=== PATIENT | male | born 1950 | race Caucasian/White ===

== ENCOUNTER 2017-06-30 17:01 | Inpatient (IN) | payer MEDICARE ==
--- NOTE | 2017-06-30 17:40 | RADIOLOGY REPORT (SQ) ---
EXAM DESCRIPTION: CHEST SINGLE VIEW COMPLETED DATE/TIME: 06/30/2017 5:26 pm REASON FOR STUDY: bed 21 db COMPARISON: 10/07/2011 EXAM PARAMETERS: NUMBER OF VIEWS: One view. TECHNIQUE: Single frontal radiographic view of the chest acquired. RADIATION DOSE: NA LIMITATIONS: None. FINDINGS: LUNGS AND PLEURA: Patchy consolidation in the left lower lobe. No significant effusion. No pneumothorax. Right lung is clear. MEDIASTINUM AND HILAR STRUCTURES: Stable. HEART AND VASCULAR STRUCTURES: Stable. BONES: No acute findings. HARDWARE: None in the chest. OTHER: No other significant finding. IMPRESSION: Patchy consolidation in the left lower lobe. TECHNICAL DOCUMENTATION: JOB ID: [id number]
[2017-06-30] MEDS ORDERED: LEVOFLOXACIN 750 MG TABLET PO ONE (17:47)
--- NOTE | 2017-06-30 17:48 | ER Document Report ---
ED General - General Chief Complaint: Painful Cough Stated Complaint: COUGHING UP BLOOD Time Seen by Provider: 06/30/17 17:20 Mode of Arrival: Ambulatory Information source: Patient Notes: 67-year-old male history of COPD A. fib on metoprolol and warfarin presents with complaints of productive cough that has turned to bloody over the past few days. Patient denies any fevers admits to sweats. Patient admits shortness of breath weakness - HPI Onset: Last week Onset/Duration: Persistent Quality of pain: No pain Severity: Moderate Pain Level: Denies Associated symptoms: Sweating, Weakness Exacerbated by: Coughing, Deep breathing Relieved by: Denies Similar symptoms previously: Yes Recently seen / treated by doctor: No - Related Data Allergies/Adverse Reactions: No Known Allergies Allergy (Unverified 10/07/11 20:08) Home Medications: Current Home Medications Bupropion HCl [Wellbutrin Xl 300mg 24hr Tablet] 300 mg PO DAILY 06/30/17 [ History] Hydromorphone HCl [Dilaudid 2 mg Tablet] 4 mg PO Q6HP PRN 06/30/17 [History] Losartan Potassium [Cozaar 25 mg Tablet] 25 mg PO DAILY 06/30/17 [History] Metoprolol Succinate 100 mg PO BID 06/30/17 [History] Oxycodone HCl [Oxycontin] 60 mg PO Q8 06/30/17 [History] Pantoprazole Sodium [Protonix] 40 mg PO DAILY 06/30/17 [History] Warfarin Sodium [Coumadin 5 mg Tablet] 5 mg PO QHS 06/30/17 [History] Past Medical History - Social History Smoking Status: Current Every Day Smoker Cigarette use (# per day): Yes Chew tobacco use (# tins/day): No Smoking Education Provided: No Family History: Reviewed & Not Pertinent Pulmonary Medical History: Reports: Hx COPD Neurological Medical History: Denies: Hx Seizures Endocrine Medical History: Reports: Hx Hypothyroidism Musculoskeltal Medical History: Reports Hx Arthritis - DDD Past Surgical History: Reports: Hx Gastric Bypass Surgery - 1993, Hx Orthopedic Surgery - Herniated Disc Repair, Bilateral Knee Replacement - Immunizations Hx Diphtheria, Pertussis, Tetanus Vaccination: Yes Hx Pneumococcal Vaccination: 07/20/09 Review of Systems - Review of Systems Notes: REVIEW OF SYSTEMS: CONSTITUTIONAL : Admits to sweats EENT: Denies eye, ear, throat, or mouth pain or symptoms. Denies nasal or sinus congestion or discharge. Denies throat, tongue, or mouth swelling or difficulty swallowing. CARDIOVASCULAR: Denies chest pain. Denies palpitations or racing or irregular heart beat. Denies ankle edema. RESPIRATORY: Admits to shortness breath difficulty breathing GASTROINTESTINAL: Denies abdominal pain or distention. Denies nausea, vomiting , or diarrhea. Denies blood in vomitus, stools, or per rectum. Denies black, tarry stools. Denies constipation. GENITOURINARY: Denies difficulty urinating, painful urination, burning, frequency, blood in urine, or discharge. MUSCULOSKELETAL: Denies back or neck pain or stiffness. Denies joint pain or swelling. SKIN: Denies rash, lesions or sores. HEMATOLOGIC : Denies easy bruising or bleeding. LYMPHATIC: Denies swollen, enlarged glands. NEUROLOGICAL: Denies confusion or altered mental status. Denies passing out or loss of consciousness. Denies dizziness or lightheadedness. Denies headache. Denies weakness or paralysis or loss of use of either side. Denies problems with gait or speech. Denies sensory loss, numbness, or tingling. Denies seizures. PSYCHIATRIC: Denies anxiety or stress. Denies depression, suicidal ideation, or homicidal ideation. ALL OTHER SYSTEMS REVIEWED AND NEGATIVE. Dictation was performed using [employer] voice recognition software PHYSICAL EXAMINATION: GENERAL: Ill-appearing male HEAD: Atraumatic, normocephalic. EYES: Pupils equal round and reactive to light, extraocular movements intact, sclera anicteric, conjunctiva are normal. ENT: Nares patent, oropharynx clear without exudates. Moist mucous membranes. NECK: Normal range of motion, supple without lymphadenopathy LUNGS: Coarse rhonchi at the bases HEART: A. fib RVR ABDOMEN: Soft, nontender, nondistended abdomen. No guarding, no rebound. No masses appreciated. Musculoskeletal: Normal range of motion, no pitting or edema. No cyanosis. NEUROLOGICAL: Cranial nerves grossly intact. Normal speech, normal gait. Normal sensory, motor exams PSYCH: Normal mood, normal affect. SKIN: Sweaty Physical Exam - Vital signs Vitals: Resp 22 H 06/30/17 17:14 Course - Re-evaluation Re-evalutation: 06/30/17 20:22 Patient is noted to have pneumonia, he was in A. fib RVR and was given Cardizem which did drop his blood pressure, he was given IV fluids for this. His pressures did gradually improve. Patient will be given Levaquin and vancomycin. He is noted to have a bandemia consistent with sepsis patient otherwise is quite ill family has been made aware of this 06/30/17 21:29 Patient was given IV fluids pressure did improve - Vital Signs Vital signs: Temp Pulse Resp BP Pulse Ox 15 102/75 92 06/30/17 20:40 06/30/17 20:40 06/30/17 20:40 - Laboratory Result Diagrams: 06/30/17 18:03 06/30/17 18:03 Laboratory results interpreted by me: 06/30/17 06/30/17 06/30/17 18:03 18:03 18:03 WBC 21.4 H RBC 5.94 H Hgb 17.7 H Hct 52.6 H RDW 14.1 H Band Neutrophils % 23 H Lymphocytes % (Manual) 2 L Monocytes % (Manual) 2 L Abs Neuts (Manual) 20.5 H Abs Lymphs (Manual) 0.4 L Potassium 5.8 H BUN 25 H Creatinine 1.38 H Est GFR (Non-Af Amer) 51 L Glucose 139 H Lactic Acid 2.5 H Creatine Kinase 34 L - Diagnostic Test Radiology reviewed: Image reviewed, Reports reviewed - EKG Interpretation by Me EKG shows normal: Sinus rhythm, [place], Intervals, QRS Complexes Rate: Tachycardia Rhythm: A.Fib Critical Care Note - Critical Care Note Total time excluding time spent on procedures (mins): 45 Comments: 45 minutes of critical care time spent in direct contact evaluating and reevaluating the patient, treating symptoms, reviewing labs and studies and speaking with family and consultants excluding any procedures Discharge - Discharge Clinical Impression: Pneumonia Qualifiers: Pneumonia type: due to unspecified organism Laterality: right Lung location: lower lobe of lung Qualified Code(s): J18.1 - Lobar pneumonia, unspecified organism Sepsis Qualifiers: Sepsis type: sepsis due to unspecified organism Qualified Code(s): A41.9 - Sepsis, unspecified organism Condition: Critical Disposition: ADMITTED INPATIENT Admitting Provider: Hospitalist Unit Admitted: ICU
[2017-06-30] MEDS ORDERED: NORMAL SALINE 1000 ML 1,000 ML IV PRN (17:56)
[2017-06-30] MEDS ORDERED: LEVOFLOXACIN 750 MG/D5W RTU 750 MG/150 ML RTUPB IV ONE (17:56)
[2017-06-30] MEDS ORDERED: DILTIAZEM HCL/D5W 125 MG/125 ML RTUINJ IV PRN (17:57)
[2017-06-30] MEDS ORDERED: DILTIAZEM HCL INJ 25 MG/5 ML VIAL IV ONE (17:57)
[2017-06-30 18:41] LABS: VENOUS BLOOD BASE EXCESS -1.1 mmol/L; VENOUS BLOOD HCO3 24.2 mmol/L (20-32); VENOUS BLOOD PCO2 42.4 mmHg (35-63); VENOUS BLOOD PH 7.37 (7.30-7.42)
[2017-06-30 18:46] LABS: HEMATOCRIT 52.6 % (37.9-51.0); HEMOGLOBIN 17.7 g/dL (13.5-17.0); HGB HCT DIFFERENCE 0.5; MEAN CORPUSCULAR HEMOGLOBIN 29.7 pg (27.0-33.4); MEAN CORPUSCULAR HGB CONC 33.6 g/dL (32.0-36.0); MEAN CORPUSCULAR VOLUME 88 fl (80-97); RED BLOOD COUNT 5.94 10^6/uL (4.35-5.55); RED CELL DISTRIBUTION WIDTH 14.1 % (11.5-14.0); WHITE BLOOD COUNT 21.4 10^3/uL (4.0-10.5)
[2017-06-30 18:51] LABS: ALANINE AMINOTRANSFERASE 32 U/L (21-72); ALBUMIN 4.2 g/dL (3.5-5.0); ALKALINE PHOSPHATASE 83 U/L (38-126); ANION GAP 14 (5-19); ASPARTATE AMINO TRANSFERASE 18 U/L (17-59); BILIRUBIN,DIRECT 0.4 mg/dL (0.0-0.4); BILIRUBIN,TOTAL 1.2 mg/dL (0.2-1.3); BLOOD UREA NITROGEN 25 mg/dL (7-20); CALCIUM 9.7 mg/dL (8.4-10.2); CARBON DIOXIDE 26 mmol/L (22-30); CHLORIDE 98 mmol/L (98-107); CREATINE KINASE 34 U/L (55-170); CREATININE RESULT 1.38 mg/dL (0.52-1.25); GLUCOSE 139 mg/dL (75-110); POTASSIUM 5.8 mmol/L (3.6-5.0); SODIUM 137.9 mmol/L (137-145)
[2017-06-30 19:17] LABS: BASOPHILS % (MANUAL) 0 % (0-2); EOSINOPHILS % (MANUAL) 0 % (0-6); LYMPHOCYTES % (MANUAL) 2 % (13-45); TOTAL CELLS COUNTED 100
[2017-06-30 19:19] LABS: TOXIC GRANULATION 1+; TROPONIN I < 0.012 ng/mL
[2017-06-30 19:20] LABS: ANISOCYTOSIS SLIGHT; BAND NEUTROPHILS % (MANUAL) 23 % (3-5); TOXIC VACUOLATION PRESENT
--- NOTE | 2017-06-30 19:51 | EKG REPORT ---
SEVERITY:- ABNORMAL ECG - ATRIAL FIBRILLATION, V-RATE 80-133 LAD, CONSIDER LAFB OR INFERIOR INFARCT BORDERLINE T ABNORMALITIES, LATERAL LEADS BORDERLINE PROLONGED QT INTERVAL : Confirmed by: Pablo Fernando MD 30-Jun-2017 19:50:15
[2017-06-30] MEDS ORDERED: VANCOMYCIN HCL INJ 1000 MG VIAL IV ONE (20:15)
[2017-06-30] MEDS ORDERED: ACETAMINOPHEN 325 MG TABLET PO PRN (20:19)
[2017-06-30] MEDS ORDERED: NORMAL SALINE 1000 ML 1,000 ML IV ONE (20:21)
[2017-06-30] MEDS ORDERED: DEXTROSE 5%-WATER 250 ML with NOREPINEPHRINE BITARTRATE 4 MG IV PRN ×2 (20:22)
[2017-06-30] MEDS ORDERED: VANCOMYCIN HCL 0 MG in DEXTROSE 5%-WATER 250 ML IV NR (20:30)
[2017-06-30] MEDS ORDERED: HYDROCORTISONE SOD SUCCINATE INJ/PF 100 MG/2 ML SDV IV ONE (21:00)
[2017-06-30] MEDS ORDERED: LACTULOSE SYRUP 20 GM/30 ML UDCUP PO ONE (21:30)
--- NOTE | 2017-06-30 21:50 | RADIOLOGY REPORT (SQ) ---
EXAM DESCRIPTION: ABDOMEN 2 VIEWS COMPLETED DATE/TIME: 06/30/2017 9:07 pm REASON FOR STUDY: vomiting COMPARISON: None. NUMBER OF VIEWS: Two views. TECHNIQUE: Supine and erect/decubitus radiographic images of the abdomen acquired. LIMITATIONS: Patient body habitus. FINDINGS: FREE AIR: None. No abnormal gas collections. LUNG BASES: Left basilar airspace disease. BOWEL GAS PATTERN: Nonobstructive pattern. No dilated small bowel loops or air fluid levels identifie d. BONES: No acute fracture. No worrisome bone lesions. OTHER: No other significant finding. IMPRESSION: Nonobstructive pattern.Left basilar airspace disease. TECHNICAL DOCUMENTATION: JOB ID: [id number] [employer]- All Rights Reserved
[2017-06-30] MEDS ORDERED: INFLUENZA ADLT QUAD (36MOS+) 2017-18 VAC 0.5 ML SYR IM PRN (22:14)
[2017-06-30] MEDS: VANCOMYCIN HCL 1,250 MG in DEXTROSE 5%-WATER 250 ML IV SCH (23:06)
[2017-06-30] MEDS: HEPARIN SOD (PORCINE) 5,000 UNIT/ML 1 ML SYRINGE SUBCUT SCH (23:06)
[2017-06-30] MEDS: NORMAL SALINE 1000 ML 1,000 ML IV SCH (23:20)
[2017-06-30] MEDS: METOPROLOL TARTRATE PF/INJ 5 MG/5 ML SDV IV PRN (23:31)
[2017-07-01] MEDS: HYDROMORPHONE HCL 2 MG TABLET PO PRN ×2 (00:04→08:25)
[2017-07-01 01:05] LABS: CREATINE KINASE MB 0.92 ng/mL (<4.55)
[2017-07-01 01:08] LABS: TROPONIN I < 0.012 ng/mL
[2017-07-01] MEDS ORDERED: DEXTROSE 40% GEL 15 GM TUBE PO PRN ×2 (01:19)
[2017-07-01] MEDS ORDERED: DEXTROSE 50%-WATER 25 GM/50 ML DISP.SYRIN IV PRN ×2 (01:19)
[2017-07-01] MEDS: NORMAL SALINE 1000 ML 1,000 ML IV PRN ×2 (01:33→02:35)
[2017-07-01 01:37] LABS: PROTHROMBIN TIME 22.1 SEC (11.4-15.4)
[2017-07-01 02:21] LABS: APPEARANCE,URINE SLIGHTLY-CLOUDY; BILIRUBIN,URINE NEGATIVE (NEGATIVE); GLUCOSE, URINE NEGATIVE (NEGATIVE); KETONES,URINE NEGATIVE (NEGATIVE); LEUKOCYTE ESTERASE,URINE NEGATIVE (NEGATIVE); NITRITE,URINE NEGATIVE (NEGATIVE); PROTEIN,URINE NEGATIVE (NEGATIVE); URINE SPECIFIC GRAVITY 1.021
[2017-07-01] MEDS: IPRATROPIUM/ALBUTEROL 0.5-2.5 MG/3 ML AMPUL NEB SCH ×4 (02:35→20:22)
[2017-07-01] MEDS: NORMAL SALINE 1000 ML 1,000 ML IV SCH ×2 (02:48→07:03)
[2017-07-01] MEDS: OXYCODONE HCL SR 10 MG TABLET PO SCH ×3 (05:35→21:32)
[2017-07-01] MEDS: HEPARIN SOD (PORCINE) 5,000 UNIT/ML 1 ML SYRINGE SUBCUT SCH ×3 (05:36→22:00)
--- NOTE | 2017-07-01 05:45 | PDOC H&P ---
History of Present Illness Admission Date/PCP: 06/30/17 20:19 BRAN CERNA PA-C Patient complains of: Hemoptysis History of Present Illness: AMELIA BOB is a 67 year old male with a past medical history of COPD, chronic bronchitis, atrial fibrillation, morbid obesity, opiate dependent chronic back pain, gastric bypass and chronic constipation. Patient been in his usual state of health until approximately 6 hours prior to presentation having developed a nonproductive cough and a single episode of hemoptysis. In the emergency room is found to have A. fib with RVR, hypotension, bandemia and a left-sided infiltrate suggestive of pneumonia. He started on empiric antibiotics and referred to the hospitalist for admission. Patient denies recurrent pneumonia, recent antibiotics or infectious contacts. He believes his vaccinations for influenza and pneumonia are up-to-date. Past Medical History Cardiac Medical History: Reports: Atrial Fibrillation Pulmonary Medical History: Reports: Chronic Obstructive Pulmonary Disease (COPD) Neurological Medical History: Denies: Seizures Endocrine Medical History: Reports: Hypothyroidism Musculoskeltal Medical History: Reports: Arthritis - DDD Past Surgical History Past Surgical History: Reports: Gastric Bypass Surgery - 1993, Orthopedic Surgery - Herniated Disc Repair, Bilateral Knee Replacement Social History Information Source: Patient, [facility] Records Smoking Status: Former Smoker Frequency of Alcohol Use: None Hx Recreational Drug Use: No Hx Prescription Drug Abuse: No - Advance Directive Resuscitation Status: Full Code Family History Family History: COPD Parental Family History Reviewed: Yes Children Family History Reviewed: Yes Sibling(s) Family History Reviewed.: Yes Medication/Allergy Home Medications: Bupropion HCl [Wellbutrin Xl 300mg 24hr Tablet] 300 mg PO DAILY 06/30/17 Hydromorphone HCl [Dilaudid 2 mg Tablet] 4 mg PO Q6HP PRN 06/30/17 Losartan Potassium [Cozaar 25 mg Tablet] 25 mg PO DAILY 06/30/17 Metoprolol Succinate 100 mg PO BID 06/30/17 Oxycodone HCl [Oxycontin] 60 mg PO Q8 06/30/17 Pantoprazole Sodium [Protonix] 40 mg PO DAILY 06/30/17 Warfarin Sodium [Coumadin 5 mg Tablet] 5 mg PO QHS 06/30/17 Allergies/Adverse Reactions: No Known Allergies Allergy (Unverified 10/07/11 20:08) Review of Systems Constitutional: PRESENT: fatigue Eyes: ABSENT: visual disturbances Ears: ABSENT: hearing changes Cardiovascular: ABSENT: chest pain, dyspnea on exertion, edema, orthropnea, palpitations Respiratory: ABSENT: cough, hemoptysis Gastrointestinal: PRESENT: bloating, constipation. ABSENT: abdominal pain, diarrhea, hematemesis, hematochezia, nausea, vomiting Genitourinary: ABSENT: dysuria, hematuria Musculoskeletal: ABSENT: joint swelling Integumentary: ABSENT: rash, wounds Neurological: ABSENT: abnormal gait, abnormal speech, confusion, dizziness, focal weakness, syncope Psychiatric: ABSENT: anxiety, depression, homidical ideation, suicidal ideation Endocrine: ABSENT: cold intolerance, heat intolerance, polydipsia, polyuria Hematologic/Lymphatic: ABSENT: easy bleeding, easy bruising Physical Exam Vital Signs: Temp Pulse Resp BP Pulse Ox 97.5 F 120 H 16 140/98 H 95 07/01/17 04:00 07/01/17 04:00 07/01/17 04:00 07/01/17 04:00 07/01/17 04:00 Intake & Output 06/29/17 06/30/17 07/01/17 11:59 11:59 11:59 Intake Total 4400 Output Total 860 Balance 3540 Weight 146.1 kg General appearance: PRESENT: cooperative, mild distress. ABSENT: hard of hearing Head exam: PRESENT: atraumatic, normocephalic Eye exam: PRESENT: conjunctiva pink, EOMI, PERRLA. ABSENT: scleral icterus Ear exam: PRESENT: normal external ear exam Mouth exam: PRESENT: dry mucosa Neck exam: ABSENT: carotid bruit, JVD, lymphadenopathy, thyromegaly Respiratory exam: PRESENT: accessory muscle use, clear to auscultation almaz, prolonged expiratory phas, rhonchi, tachypnea. ABSENT: rales, wheezes Cardiovascular exam: PRESENT: irregular rhythm. ABSENT: diastolic murmur, rubs , systolic murmur Pulses: PRESENT: normal dorsalis pedis pul Vascular exam: PRESENT: normal capillary refill GI/Abdominal exam: PRESENT: distended, hypoactive bowel sounds, soft. ABSENT: tenderness Rectal exam: PRESENT: deferred Extremities exam: PRESENT: full ROM. ABSENT: calf tenderness, clubbing, pedal edema Neurological exam: PRESENT: alert, awake, oriented to person, oriented to place , oriented to time, oriented to situation, CN II-XII grossly intact. ABSENT: motor sensory deficit Psychiatric exam: PRESENT: appropriate affect, normal mood. ABSENT: homicidal ideation, suicidal ideation Skin exam: PRESENT: dry, intact, warm. ABSENT: cyanosis, rash Results Laboratory Results: 06/30/17 07/01/17 22:19 01:50 Lactic Acid 2.5 H Urine Color LÓPEZ Urine Appearance SLIGHTLY-CLOUDY Urine pH 5.0 Ur Specific [place] 1.021 Urine Protein NEGATIVE Urine Glucose (UA) NEGATIVE Urine Ketones NEGATIVE Urine Blood MODERATE H Urine Nitrite NEGATIVE Ur Leukocyte Esterase NEGATIVE Urine WBC (Auto) 10 Urine RBC (Auto) 5 07/01/17 07/01/17 00:27 00:27 Creatine Kinase 46 L CK-MB (CK-2) 0.92 Troponin I < 0.012 Impressions: Abdomen X-Ray 06/30/17 00:00 IMPRESSION: Nonobstructive pattern.Left basilar airspace disease. Chest X-Ray 06/30/17 17:10 IMPRESSION: Patchy consolidation in the left lower lobe. Assessment & Plan - Diagnosis (1) Sepsis Qualifiers: Sepsis type: sepsis due to unspecified organism Qualified Code(s): A41.9 - Sepsis, unspecified organism Is this a current diagnosis for this admission?: Yes Plan: Sepsis with bandemia likely secondary to pneumonia he is placed on vancomycin and Levaquin empirically, IV fluid challenge and pressors as needed. (2) Hypotension Is this a current diagnosis for this admission?: Yes Plan: Please see #1, evaluate cortisol level (3) Pneumonia Qualifiers: Pneumonia type: due to unspecified organism Laterality: left Lung location: lower lobe of lung Qualified Code(s): J18.1 - Lobar pneumonia, unspecified organism Is this a current diagnosis for this admission?: Yes Plan: Empiric antibiotics, evaluate influenza, follow-up CBC and blood culture (4) Hyperkalemia Is this a current diagnosis for this admission?: Yes Plan: Likely secondary to constipation, no peak T waves, lactulose and reevaluation of chemistry - Time Time Spent: 50 to 70 Minutes - Inpatient Certification Medical Necessity: Need Close Monitoring Due to Risk of Patient Decompensation
[2017-07-01 06:17] LABS: HGB HCT DIFFERENCE 0.7; MEAN CORPUSCULAR HEMOGLOBIN 29.8 pg (27.0-33.4); MEAN CORPUSCULAR HGB CONC 33.9 g/dL (32.0-36.0); MEAN CORPUSCULAR VOLUME 88 fl (80-97); RED BLOOD COUNT 5.01 10^6/uL (4.35-5.55); RED CELL DISTRIBUTION WIDTH 14.3 % (11.5-14.0); WHITE BLOOD COUNT 15.4 10^3/uL (4.0-10.5)
[2017-07-01 06:18] LABS: HEMOGLOBIN 14.9 g/dL (13.5-17.0)
[2017-07-01 06:30] LABS: ALANINE AMINOTRANSFERASE 25 U/L (21-72); ALBUMIN 3.2 g/dL (3.5-5.0); ALKALINE PHOSPHATASE 67 U/L (38-126); ANION GAP 13 (5-19); ASPARTATE AMINO TRANSFERASE 15 U/L (17-59); BILIRUBIN,DIRECT 0.4 mg/dL (0.0-0.4); BILIRUBIN,TOTAL 0.9 mg/dL (0.2-1.3); BLOOD UREA NITROGEN 25 mg/dL (7-20); CALCIUM 8.2 mg/dL (8.4-10.2); CARBON DIOXIDE 19 mmol/L (22-30); CHLORIDE 109 mmol/L (98-107); CREATININE RESULT 1.12 mg/dL (0.52-1.25); GLUCOSE 129 mg/dL (75-110); TOTAL PROTEIN 5.8 g/dL (6.3-8.2)
[2017-07-01 06:38] LABS: CREATINE KINASE MB 1.69 ng/mL (<4.55)
[2017-07-01 06:39] LABS: BAND NEUTROPHILS % (MANUAL) 9 % (3-5); BASOPHILS % (MANUAL) 0 % (0-2); EOSINOPHILS % (MANUAL) 0 % (0-6); LYMPHOCYTES % (MANUAL) 7 % (13-45); TOTAL CELLS COUNTED 100
[2017-07-01 06:40] LABS: ANISOCYTOSIS SLIGHT; STOMATOCYTES SLIGHT; TOXIC GRANULATION SLIGHT; TOXIC VACUOLATION PRESENT
[2017-07-01 06:41] LABS: PLATELET CLUMPS PRESENT
[2017-07-01 06:42] LABS: POTASSIUM 4.5 mmol/L (3.6-5.0); TROPONIN I 0.012 ng/mL
[2017-07-01] MEDS ORDERED: LORAZEPAM 1 MG TABLET ONE (08:54)
--- NOTE | 2017-07-01 09:52 | RADIOLOGY REPORT (SQ) ---
EXAM DESCRIPTION: CHEST SINGLE VIEW COMPLETED DATE/TIME: 07/01/2017 9:43 am REASON FOR STUDY: SOB COMPARISON: 06/30/2017 EXAM PARAMETERS: NUMBER OF VIEWS: One view. TECHNIQUE: Single frontal radiographic view of the chest acquired. RADIATION DOSE: NA LIMITATIONS: None. FINDINGS: LUNGS AND PLEURA: Persistent left basilar opacity and increasing right basilar opacity. MEDIASTINUM AND HILAR STRUCTURES: No masses. Contour normal. HEART AND VASCULAR STRUCTURES: Heart is enlarged. Interval development of vascular congestion and [place] B-lines. BONES: No acute findings. HARDWARE: None in the chest. OTHER: No other significant finding. IMPRESSION: Persistent left lower lobe pneumonia with new parenchymal opacity at the right base. Congestive failure with interstitial pulmonary edema. TECHNICAL DOCUMENTATION: JOB ID: [id number]
[2017-07-01 09:56] LABS: ARTERIAL BLOOD BASE EXCESS -2.9 mmol/L; ARTERIAL BLOOD O2 SATURATION 94.5 % (94-98)
[2017-07-01] MEDS ORDERED: FUROSEMIDE INJ/PF 40 MG/4 ML SDV ONE (10:05)
[2017-07-01] MEDS: LANSOPRAZOLE 30 MG TAB.RAP.DR PO SCH (10:11)
[2017-07-01] MEDS: VANCOMYCIN HCL 1,250 MG in DEXTROSE 5%-WATER 250 ML IV SCH ×2 (10:12→21:33)
[2017-07-01] MEDS ORDERED: FUROSEMIDE INJ/PF 40 MG/4 ML SDV IV ONE (10:15)
--- NOTE | 2017-07-01 12:04 | PDOC PROGRESS REPORT ---
Subjective Progress Note for:: 07/01/17 Subjective:: Patient complains of a productive cough and shortness of breath. Physical Exam Vital Signs: Temp Pulse Resp BP Pulse Ox 97.9 F 109 H 19 148/86 H 94 07/01/17 06:00 07/01/17 10:01 07/01/17 10:30 07/01/17 10:30 07/01/17 10:30 Intake & Output 06/30/17 07/01/17 07/02/17 06:59 06:59 06:59 Intake Total 4400 Output Total 885 300 Balance 3515 -300 Weight 150.4 kg 150.4 kg General appearance: PRESENT: mild distress Eye exam: PRESENT: conjunctiva pink. ABSENT: scleral icterus Mouth exam: PRESENT: moist, tongue midline Neck exam: ABSENT: JVD Respiratory exam: PRESENT: rales - Bibasilar Rales.. ABSENT: rhonchi, wheezes Cardiovascular exam: PRESENT: RRR. ABSENT: diastolic murmur, rubs, systolic murmur GI/Abdominal exam: PRESENT: normal bowel sounds, soft. ABSENT: distended, guarding, mass, organolmegaly, rebound, tenderness Extremities exam: ABSENT: calf tenderness, clubbing, pedal edema Neurological exam: PRESENT: alert, awake, oriented to person, oriented to place , oriented to time, oriented to situation, CN II-XII grossly intact. ABSENT: motor sensory deficit Psychiatric exam: PRESENT: anxious Skin exam: PRESENT: dry, intact, warm. ABSENT: cyanosis, rash Results Laboratory Results: 07/01/17 05:57 07/01/17 05:57 06/30/17 07/01/17 07/01/17 22:19 01:50 05:57 WBC 15.4 H RBC 5.01 Hgb 14.9 D Hct 44.0 MCV 88 MCH 29.8 MCHC 33.9 RDW 14.3 H Plt Count 150 Seg Neutrophils % Not Reportable Lymphocytes % Not Reportable Monocytes % Not Reportable Eosinophils % Not Reportable Basophils % Not Reportable Absolute Neutrophils Not Reportable Absolute Lymphocytes Not Reportable Absolute Monocytes Not Reportable Absolute Eosinophils Not Reportable Absolute Basophils Not Reportable Carbonic Acid HCO3/H2CO3 Ratio ABG pH ABG pCO2 ABG pO2 ABG HCO3 ABG O2 Saturation ABG Base Excess FiO2 Sodium Potassium Chloride Carbon Dioxide Anion Gap BUN Creatinine Est GFR ( Amer) Est GFR (Non-Af Amer) Glucose Lactic Acid 2.5 H Calcium Magnesium Total Bilirubin AST ALT Alkaline Phosphatase Total Protein Albumin Urine Color LÓPEZ Urine Appearance SLIGHTLY-CLOUDY Urine pH 5.0 Ur Specific [place] 1.021 Urine Protein NEGATIVE Urine Glucose (UA) NEGATIVE Urine Ketones NEGATIVE Urine Blood MODERATE H Urine Nitrite NEGATIVE Ur Leukocyte Esterase NEGATIVE Urine WBC (Auto) 10 Urine RBC (Auto) 5 07/01/17 07/01/17 07/01/17 05:57 05:57 09:46 WBC RBC Hgb Hct MCV MCH MCHC RDW Plt Count Seg Neutrophils % Lymphocytes % Monocytes % Eosinophils % Basophils % Absolute Neutrophils Absolute Lymphocytes Absolute Monocytes Absolute Eosinophils Absolute Basophils Carbonic Acid 1.12 HCO3/H2CO3 Ratio 19:1 ABG pH 7.38 ABG pCO2 37.2 ABG pO2 72.7 L ABG HCO3 21.7 ABG O2 Saturation 94.5 ABG Base Excess -2.9 FiO2 4.5L Sodium 141.0 Potassium 4.5 D Chloride 109 H Carbon Dioxide 19 L Anion Gap 13 BUN 25 H Creatinine 1.12 Est GFR ( Amer) > 60 Est GFR (Non-Af Amer) > 60 Glucose 129 H Lactic Acid Calcium 8.2 L Magnesium 1.7 Total Bilirubin 0.9 AST 15 L ALT 25 Alkaline Phosphatase 67 Total Protein 5.8 L Albumin 3.2 L Urine Color Urine Appearance Urine pH Ur Specific [place] Urine Protein Urine Glucose (UA) Urine Ketones Urine Blood Urine Nitrite Ur Leukocyte Esterase Urine WBC (Auto) Urine RBC (Auto) 07/01/17 07/01/17 07/01/17 00:27 00:27 05:57 Creatine Kinase 46 L 65 CK-MB (CK-2) 0.92 Troponin I < 0.012 NT-Pro-B Natriuret Pep 07/01/17 07/01/17 05:57 05:57 Creatine Kinase CK-MB (CK-2) 1.69 Troponin I 0.012 NT-Pro-B Natriuret Pep 2690 H Impressions: Abdomen X-Ray 06/30/17 00:00 IMPRESSION: Nonobstructive pattern.Left basilar airspace disease. Chest X-Ray 07/01/17 00:00 IMPRESSION: Persistent left lower lobe pneumonia with new parenchymal opacity at the right base. Congestive failure with interstitial pulmonary edema. Assessment & Plan - Diagnosis (1) Sepsis Qualifiers: Sepsis type: sepsis due to unspecified organism Qualified Code(s): A41.9 - Sepsis, unspecified organism Is this a current diagnosis for this admission?: Yes Plan: Patient has sepsis from pneumonia. Will continue with the Levaquin. The patient has been receiving IV fluids but appears to be developing some pulmonary edema and we will stop the IV fluids and give Lasix 1. (2) Pneumonia Qualifiers: Pneumonia type: due to unspecified organism Laterality: left Lung location: lower lobe of lung Qualified Code(s): J18.1 - Lobar pneumonia, unspecified organism Is this a current diagnosis for this admission?: Yes Plan: Continue with Levaquin. (3) Hypotension Is this a current diagnosis for this admission?: Yes Plan: Resolved with IV fluids. (4) Pulmonary edema Is this a current diagnosis for this admission?: Yes Plan: Secondary to IV fluids. Will give Lasix 1. (5) Atrial fibrillation Is this a current diagnosis for this admission?: Yes Plan: Patient is in a regular rhythm at the time of my exam. He is on Coumadin for anticoagulation. (6) COPD (chronic obstructive pulmonary disease) Is this a current diagnosis for this admission?: Yes Plan: Continue with nebulizers as needed. (7) Hypothyroidism Is this a current diagnosis for this admission?: Yes (8) Hyperkalemia Is this a current diagnosis for this admission?: Yes Plan: Resolved. - Time Time Spent with patient: 25-34 minutes - Inpatient Certification Medical Necessity: Need for IV Antibiotics
--- NOTE | 2017-07-01 12:58 | EKG REPORT ---
SEVERITY:- ABNORMAL ECG - ATRIAL FIBRILLATION, V-RATE 71-103 LEFT AXIS DEVIATION BORDERLINE T WAVE ABNORMALITIES : Confirmed by: Pablo Fernando MD 01-Jul-2017 12:57:25
[2017-07-01 13:03] LABS: PATH REVIEW PATHOLOGIST REVIEWED
[2017-07-01] MEDS ORDERED: DILTIAZEM HCL 30 MG TABLET PO ONE (15:45)
[2017-07-01 16:15] LABS: PROTHROMBIN TIME 21.6 SEC (11.4-15.4)
[2017-07-01 16:23] LABS: CREATINE KINASE MB 4.46 ng/mL (<4.55)
[2017-07-01 16:24] LABS: TROPONIN I < 0.012 ng/mL
[2017-07-01] MEDS: LEVOFLOXACIN 750 MG/D5W RTU 750 MG/150 ML RTUPB IV SCH (17:43)
[2017-07-01] MEDS: WARFARIN SODIUM 5 MG TABLET PO SCH (21:33)
[2017-07-01] MEDS ORDERED: (PENDING PHARMACY ID) (Warfarin Sodium 5 MG) PO SCH (22:00)
[2017-07-01] MEDS: DILTIAZEM HCL 30 MG TABLET PO SCH (23:11)
[2017-07-01] MEDS: METOPROLOL TARTRATE PF/INJ 5 MG/5 ML SDV IV PRN (23:12)
[2017-07-02] MEDS: IPRATROPIUM/ALBUTEROL 0.5-2.5 MG/3 ML AMPUL NEB SCH ×4 (01:57→20:19)
[2017-07-02] MEDS: HYDROMORPHONE HCL 2 MG TABLET PO PRN ×3 (02:16→20:39)
[2017-07-02 04:03] LABS: ABSOLUTE EOSINOPHILS # (AUTO) 0.1 10^3/uL (0.0-0.6); ABSOLUTE MONOCYTES (AUTO) 0.6 10^3/uL (0.1-1.4); ABSOLUTE NEUT (AUTO) 8.6 10^3/uL (1.7-8.2); BASOPHILS % (AUTO) 0.4 % (0-2); EOSINOPHILS % (AUTO) 0.7 % (0-6); HEMATOCRIT 43.1 % (37.9-51.0); HEMOGLOBIN 14.3 g/dL (13.5-17.0); HGB HCT DIFFERENCE -0.2; LYMPHOCYTES % (AUTO) 9.7 % (13-45); MEAN CORPUSCULAR HEMOGLOBIN 29.3 pg (27.0-33.4); MEAN CORPUSCULAR HGB CONC 33.1 g/dL (32.0-36.0); MEAN CORPUSCULAR VOLUME 89 fl (80-97); MONOCYTES % (AUTO) 5.7 % (3-13); RED BLOOD COUNT 4.86 10^6/uL (4.35-5.55); RED CELL DISTRIBUTION WIDTH 14.1 % (11.5-14.0); SEGMENTED NEUTROPHILS % (AUTO) 83.5 % (42-78); WHITE BLOOD COUNT 10.2 10^3/uL (4.0-10.5)
[2017-07-02 05:27] LABS: ALANINE AMINOTRANSFERASE 20 U/L (21-72); ALBUMIN 2.9 g/dL (3.5-5.0); ALKALINE PHOSPHATASE 47 U/L (38-126); ANION GAP 10 (5-19); ASPARTATE AMINO TRANSFERASE 26 U/L (17-59); BILIRUBIN,DIRECT 0.5 mg/dL (0.0-0.4); BILIRUBIN,TOTAL 0.8 mg/dL (0.2-1.3); BLOOD UREA NITROGEN 20 mg/dL (7-20); CALCIUM 8.8 mg/dL (8.4-10.2); CARBON DIOXIDE 22 mmol/L (22-30); CHLORIDE 109 mmol/L (98-107); CREATININE RESULT 0.97 mg/dL (0.52-1.25); GLUCOSE 102 mg/dL (75-110); POTASSIUM 4.4 mmol/L (3.6-5.0); SODIUM 140.5 mmol/L (137-145); TOTAL PROTEIN 5.4 g/dL (6.3-8.2)
[2017-07-02] MEDS: DILTIAZEM HCL 30 MG TABLET PO SCH ×4 (05:50→23:03)
[2017-07-02] MEDS: OXYCODONE HCL SR 10 MG TABLET PO SCH ×3 (05:50→21:53)
[2017-07-02] MEDS: HEPARIN SOD (PORCINE) 5,000 UNIT/ML 1 ML SYRINGE SUBCUT SCH ×3 (06:02→21:53)
[2017-07-02] MEDS: METOPROLOL TARTRATE PF/INJ 5 MG/5 ML SDV IV PRN ×2 (07:25→23:04)
[2017-07-02] MEDS: VANCOMYCIN HCL 1,250 MG in DEXTROSE 5%-WATER 250 ML IV SCH ×2 (09:37→21:53)
[2017-07-02] MEDS: LANSOPRAZOLE 30 MG TAB.RAP.DR PO SCH (09:37)
--- NOTE | 2017-07-02 10:11 | PDOC PROGRESS REPORT ---
Subjective Progress Note for:: 07/02/17 Subjective:: Reports he is feeling less short of breath today. Has had intermittent tachycardia. Physical Exam Vital Signs: Temp Pulse Resp BP Pulse Ox 97.8 F 122 H 18 138/73 H 96 07/02/17 08:00 07/02/17 08:19 07/02/17 08:00 07/02/17 08:00 07/02/17 08:00 Intake & Output 07/01/17 07/02/17 07/03/17 06:59 06:59 06:59 Intake Total 4400 5521 Output Total 885 4350 0 Balance 3515 1171 0 Weight 150.4 kg 147.6 kg General appearance: PRESENT: no acute distress Eye exam: PRESENT: conjunctiva pink. ABSENT: scleral icterus Mouth exam: PRESENT: moist, tongue midline Neck exam: ABSENT: JVD Respiratory exam: PRESENT: rhonchi - Coarse rhonchi bilaterally.. ABSENT: rales , wheezes Cardiovascular exam: PRESENT: irregular rhythm. ABSENT: diastolic murmur, rubs , systolic murmur GI/Abdominal exam: PRESENT: normal bowel sounds, soft. ABSENT: distended, guarding, mass, organolmegaly, rebound, tenderness Extremities exam: ABSENT: calf tenderness, clubbing, pedal edema Neurological exam: PRESENT: alert, awake, oriented to person, oriented to place , oriented to time, oriented to situation, CN II-XII grossly intact. ABSENT: motor sensory deficit Psychiatric exam: PRESENT: appropriate affect Skin exam: PRESENT: dry, intact, warm. ABSENT: cyanosis, rash Results Laboratory Results: 07/02/17 03:55 07/02/17 04:58 07/02/17 07/02/17 07/02/17 03:55 03:55 04:58 WBC 10.2 RBC 4.86 Hgb 14.3 Hct 43.1 MCV 89 MCH 29.3 MCHC 33.1 RDW 14.1 H Plt Count 140 L Seg Neutrophils % 83.5 H Lymphocytes % 9.7 L Monocytes % 5.7 Eosinophils % 0.7 Basophils % 0.4 Absolute Neutrophils 8.6 H Absolute Lymphocytes 1.0 Absolute Monocytes 0.6 Absolute Eosinophils 0.1 Absolute Basophils 0.0 Sodium Cancelled 140.5 Potassium Cancelled 4.4 Chloride Cancelled 109 H Carbon Dioxide Cancelled 22 Anion Gap Cancelled 10 BUN Cancelled 20 Creatinine Cancelled 0.97 Est GFR ( Amer) Cancelled > 60 Est GFR (Non-Af Amer) Cancelled > 60 Glucose Cancelled 102 Calcium Cancelled 8.8 Total Bilirubin Cancelled 0.8 AST Cancelled 26 ALT Cancelled 20 L Alkaline Phosphatase Cancelled 47 Total Protein Cancelled 5.4 L Albumin Cancelled 2.9 L 07/01/17 07/01/17 07/01/17 00:27 00:27 05:57 Creatine Kinase 46 L 65 CK-MB (CK-2) 0.92 Troponin I < 0.012 NT-Pro-B Natriuret Pep 07/01/17 07/01/17 07/01/17 05:57 05:57 12:53 Creatine Kinase Cancelled CK-MB (CK-2) 1.69 Troponin I 0.012 NT-Pro-B Natriuret Pep 2690 H 07/01/17 07/01/17 07/01/17 12:53 15:47 15:47 Creatine Kinase 233 H CK-MB (CK-2) Cancelled 4.46 Troponin I Cancelled < 0.012 NT-Pro-B Natriuret Pep Impressions: Abdomen X-Ray 06/30/17 00:00 IMPRESSION: Nonobstructive pattern.Left basilar airspace disease. Chest X-Ray 07/01/17 00:00 IMPRESSION: Persistent left lower lobe pneumonia with new parenchymal opacity at the right base. Congestive failure with interstitial pulmonary edema. Assessment & Plan - Diagnosis (1) Sepsis Qualifiers: Sepsis type: sepsis due to unspecified organism Qualified Code(s): A41.9 - Sepsis, unspecified organism Is this a current diagnosis for this admission?: Yes Plan: Patient has sepsis from pneumonia. Will continue with the Levaquin. Patient clinically is much improved. Feel he is stable for transfer to [facility] [place]. (2) Pneumonia Qualifiers: Pneumonia type: due to unspecified organism Laterality: left Lung location: lower lobe of lung Qualified Code(s): J18.1 - Lobar pneumonia, unspecified organism Is this a current diagnosis for this admission?: Yes Plan: Continue with Levaquin. (3) Hypotension Is this a current diagnosis for this admission?: Yes Plan: Resolved with IV fluids. (4) Pulmonary edema Is this a current diagnosis for this admission?: Yes Plan: Secondary to IV fluids. Resolved with Lasix. (5) Atrial fibrillation Is this a current diagnosis for this admission?: Yes Plan: The patient has been in atrial fibrillation. His heart rate has fluctuated. He is on p.o. Cardizem and has received IV Lopressor. He is on Coumadin for anticoagulation. We will continue with heparin until he is therapeutic on Coumadin. (6) COPD (chronic obstructive pulmonary disease) Is this a current diagnosis for this admission?: Yes Plan: Continue with nebulizers as needed. (7) Hypothyroidism Is this a current diagnosis for this admission?: Yes (8) Hyperkalemia Is this a current diagnosis for this admission?: Yes Plan: Resolved. - Time Time Spent with patient: 25-34 minutes - Inpatient Certification Medical Necessity: Need for IV Antibiotics - Plan Summary Plan Summary: We will transfer to the floor.
[2017-07-02 11:52] LABS: PROTHROMBIN TIME 19.8 SEC (11.4-15.4)
[2017-07-02] MEDS: LEVOFLOXACIN 750 MG/D5W RTU 750 MG/150 ML RTUPB IV SCH (18:04)
[2017-07-02] MEDS: WARFARIN SODIUM 5 MG TABLET PO SCH (21:53)
[2017-07-02] MEDS: LORAZEPAM 1 MG TABLET PO PRN (23:04)
[2017-07-03] MEDS: IPRATROPIUM/ALBUTEROL 0.5-2.5 MG/3 ML AMPUL NEB SCH ×4 (01:43→20:51)
[2017-07-03 03:53] LABS: ABSOLUTE EOSINOPHILS # (AUTO) 0.1 10^3/uL (0.0-0.6); ABSOLUTE LYMPHOCYTES (AUTO) 1.2 10^3/uL (0.5-4.7); ABSOLUTE MONOCYTES (AUTO) 0.4 10^3/uL (0.1-1.4); ABSOLUTE NEUT (AUTO) 4.6 10^3/uL (1.7-8.2); BASOPHILS % (AUTO) 0.5 % (0-2); EOSINOPHILS % (AUTO) 1.8 % (0-6); HEMATOCRIT 40.3 % (37.9-51.0); HEMOGLOBIN 13.7 g/dL (13.5-17.0); HGB HCT DIFFERENCE 0.8; LYMPHOCYTES % (AUTO) 19.5 % (13-45); MEAN CORPUSCULAR HEMOGLOBIN 29.8 pg (27.0-33.4); MEAN CORPUSCULAR VOLUME 88 fl (80-97); RED CELL DISTRIBUTION WIDTH 14.2 % (11.5-14.0); SEGMENTED NEUTROPHILS % (AUTO) 71.2 % (42-78); WHITE BLOOD COUNT 6.4 10^3/uL (4.0-10.5)
[2017-07-03 04:18] LABS: PROTHROMBIN TIME 21.3 SEC (11.4-15.4)
[2017-07-03 04:34] LABS: ALANINE AMINOTRANSFERASE 26 U/L (21-72); ALKALINE PHOSPHATASE 51 U/L (38-126); ANION GAP 9 (5-19); ASPARTATE AMINO TRANSFERASE 18 U/L (17-59); BILIRUBIN,DIRECT 0.4 mg/dL (0.0-0.4); BILIRUBIN,TOTAL 0.7 mg/dL (0.2-1.3); BLOOD UREA NITROGEN 13 mg/dL (7-20); CALCIUM 8.7 mg/dL (8.4-10.2); CARBON DIOXIDE 24 mmol/L (22-30); CHLORIDE 107 mmol/L (98-107); CREATININE RESULT 0.87 mg/dL (0.52-1.25); GLUCOSE 100 mg/dL (75-110); POTASSIUM 3.9 mmol/L (3.6-5.0); SODIUM 140.3 mmol/L (137-145); TOTAL PROTEIN 5.3 g/dL (6.3-8.2)
[2017-07-03] MEDS: METOPROLOL TARTRATE PF/INJ 5 MG/5 ML SDV IV PRN (05:51)
[2017-07-03] MEDS: OXYCODONE HCL SR 10 MG TABLET PO SCH ×3 (05:52→21:57)
[2017-07-03] MEDS: DILTIAZEM HCL 30 MG TABLET PO SCH ×4 (05:53→23:19)
[2017-07-03] MEDS: HEPARIN SOD (PORCINE) 5,000 UNIT/ML 1 ML SYRINGE SUBCUT SCH ×3 (05:53→21:58)
[2017-07-03] MEDS ORDERED: (PENDING PHARMACY ID) (Metoprolol Succinate [Metoprolol Succinate] 100 MG) PO SCH (10:00)
[2017-07-03] MEDS: LANSOPRAZOLE 30 MG TAB.RAP.DR PO SCH (10:05)
[2017-07-03] MEDS: METOPROLOL SUCCINATE 50 MG TAB.SR.24H PO SCH ×2 (10:06→21:57)
[2017-07-03] MEDS: HYDROMORPHONE HCL 2 MG TABLET PO PRN ×2 (10:06→20:56)
[2017-07-03] MEDS: VANCOMYCIN HCL 1,250 MG in DEXTROSE 5%-WATER 250 ML IV SCH ×2 (10:07→21:56)
--- NOTE | 2017-07-03 11:06 | PDOC PROGRESS REPORT ---
Subjective Progress Note for:: 07/03/17 Subjective:: Denies any complaints. Physical Exam Vital Signs: Temp Pulse Resp BP Pulse Ox 98.8 F 118 H 20 126/92 H 96 07/03/17 10:00 07/03/17 10:00 07/03/17 10:00 07/03/17 10:00 07/03/17 10:00 Intake & Output 07/02/17 07/03/17 07/04/17 06:59 06:59 06:59 Intake Total 5521 1021 140 Output Total 4350 1500 Balance 1171 -479 140 Weight 147.6 kg 146.6 kg General appearance: PRESENT: no acute distress Eye exam: PRESENT: conjunctiva pink. ABSENT: scleral icterus Ear exam: PRESENT: normal external ear exam Mouth exam: PRESENT: moist, tongue midline Neck exam: ABSENT: JVD Respiratory exam: PRESENT: clear to auscultation almaz. ABSENT: rales, rhonchi, wheezes Cardiovascular exam: PRESENT: irregular rhythm. ABSENT: diastolic murmur, rubs , systolic murmur GI/Abdominal exam: PRESENT: normal bowel sounds, soft. ABSENT: distended, guarding, mass, organolmegaly, rebound, tenderness Extremities exam: ABSENT: calf tenderness, clubbing, pedal edema Neurological exam: PRESENT: alert, awake, oriented to person, oriented to place , oriented to time, oriented to situation, CN II-XII grossly intact. ABSENT: motor sensory deficit Psychiatric exam: PRESENT: appropriate affect Skin exam: PRESENT: dry, intact, warm. ABSENT: cyanosis, rash Results Laboratory Results: 07/03/17 03:41 07/03/17 03:41 07/03/17 07/03/17 03:41 03:41 WBC 6.4 RBC 4.60 Hgb 13.7 Hct 40.3 MCV 88 MCH 29.8 MCHC 34.0 RDW 14.2 H Plt Count 161 Seg Neutrophils % 71.2 Lymphocytes % 19.5 Monocytes % 7.0 Eosinophils % 1.8 Basophils % 0.5 Absolute Neutrophils 4.6 Absolute Lymphocytes 1.2 Absolute Monocytes 0.4 Absolute Eosinophils 0.1 Absolute Basophils 0.0 Sodium 140.3 Potassium 3.9 Chloride 107 Carbon Dioxide 24 Anion Gap 9 BUN 13 Creatinine 0.87 Est GFR ( Amer) > 60 Est GFR (Non-Af Amer) > 60 Glucose 100 Calcium 8.7 Total Bilirubin 0.7 AST 18 ALT 26 Alkaline Phosphatase 51 Total Protein 5.3 L Albumin 3.0 L 07/01/17 07/01/17 07/01/17 00:27 00:27 05:57 Creatine Kinase 46 L 65 CK-MB (CK-2) 0.92 Troponin I < 0.012 NT-Pro-B Natriuret Pep 07/01/17 07/01/17 07/01/17 05:57 05:57 12:53 Creatine Kinase Cancelled CK-MB (CK-2) 1.69 Troponin I 0.012 NT-Pro-B Natriuret Pep 2690 H 07/01/17 07/01/17 07/01/17 12:53 15:47 15:47 Creatine Kinase 233 H CK-MB (CK-2) Cancelled 4.46 Troponin I Cancelled < 0.012 NT-Pro-B Natriuret Pep Impressions: Abdomen X-Ray 06/30/17 00:00 IMPRESSION: Nonobstructive pattern.Left basilar airspace disease. Chest X-Ray 07/01/17 00:00 IMPRESSION: Persistent left lower lobe pneumonia with new parenchymal opacity at the right base. Congestive failure with interstitial pulmonary edema. Assessment & Plan - Diagnosis (1) Sepsis Qualifiers: Sepsis type: sepsis due to unspecified organism Qualified Code(s): A41.9 - Sepsis, unspecified organism Is this a current diagnosis for this admission?: Yes Plan: Patient has sepsis from pneumonia. Will continue with the Levaquin. Patient continues to improve. (2) Pneumonia Qualifiers: Pneumonia type: due to unspecified organism Laterality: left Lung location: lower lobe of lung Qualified Code(s): J18.1 - Lobar pneumonia, unspecified organism Is this a current diagnosis for this admission?: Yes Plan: Continue with Levaquin. (3) Hypotension Is this a current diagnosis for this admission?: Yes Plan: Resolved with IV fluids. (4) Pulmonary edema Is this a current diagnosis for this admission?: Yes Plan: Secondary to IV fluids. Resolved with Lasix. (5) Atrial fibrillation Is this a current diagnosis for this admission?: Yes Plan: The patient has been in atrial fibrillation. His heart rate has fluctuated. He is on p.o. Cardizem and has received IV Lopressor. He is on Coumadin for anticoagulation. We will continue with heparin until he is therapeutic on Coumadin. (6) COPD (chronic obstructive pulmonary disease) Is this a current diagnosis for this admission?: Yes Plan: Continue with nebulizers as needed. (7) Hypothyroidism Is this a current diagnosis for this admission?: Yes (8) Hyperkalemia Is this a current diagnosis for this admission?: Yes Plan: Resolved. - Time Time Spent with patient: 25-34 minutes - Inpatient Certification Medical Necessity: Need Close Monitoring Due to Risk of Patient Decompensation, Need for IV Antibiotics
[2017-07-03] MEDS: BUPROPION HCL 100 MG TABLET PO SCH ×2 (13:58→21:57)
[2017-07-03] MEDS: LEVOFLOXACIN 750 MG/D5W RTU 750 MG/150 ML RTUPB IV SCH (18:26)
[2017-07-03] MEDS: WARFARIN SODIUM 5 MG TABLET PO SCH (21:57)
[2017-07-03] MEDS: LORAZEPAM 1 MG TABLET PO PRN (23:19)
[2017-07-04] MEDS: IPRATROPIUM/ALBUTEROL 0.5-2.5 MG/3 ML AMPUL NEB SCH ×2 (02:24→08:07)
[2017-07-04] MEDS: DILTIAZEM HCL 30 MG TABLET PO SCH (05:43)
[2017-07-04] MEDS: OXYCODONE HCL SR 10 MG TABLET PO SCH (05:46)
[2017-07-04] MEDS: BUPROPION HCL 100 MG TABLET PO SCH (05:46)
[2017-07-04] MEDS: HEPARIN SOD (PORCINE) 5,000 UNIT/ML 1 ML SYRINGE SUBCUT SCH (05:47)
[2017-07-04 06:18] VITALS: BP 118/82
[2017-07-04 06:19] LABS: ABSOLUTE EOSINOPHILS # (AUTO) 0.2 10^3/uL (0.0-0.6); ABSOLUTE LYMPHOCYTES (AUTO) 1.2 10^3/uL (0.5-4.7); ABSOLUTE MONOCYTES (AUTO) 0.4 10^3/uL (0.1-1.4); BASOPHILS % (AUTO) 0.4 % (0-2); EOSINOPHILS % (AUTO) 3.3 % (0-6); HEMATOCRIT 42.5 % (37.9-51.0); HEMOGLOBIN 14.5 g/dL (13.5-17.0); LYMPHOCYTES % (AUTO) 20.7 % (13-45); MEAN CORPUSCULAR HEMOGLOBIN 29.9 pg (27.0-33.4); MEAN CORPUSCULAR HGB CONC 34.1 g/dL (32.0-36.0); MEAN CORPUSCULAR VOLUME 88 fl (80-97); MONOCYTES % (AUTO) 7.5 % (3-13); RED BLOOD COUNT 4.85 10^6/uL (4.35-5.55); RED CELL DISTRIBUTION WIDTH 14.1 % (11.5-14.0); SEGMENTED NEUTROPHILS % (AUTO) 68.1 % (42-78); WHITE BLOOD COUNT 5.9 10^3/uL (4.0-10.5)
[2017-07-04 06:28] LABS: ANION GAP 9 (5-19); BLOOD UREA NITROGEN 12 mg/dL (7-20); CALCIUM 8.8 mg/dL (8.4-10.2); CARBON DIOXIDE 26 mmol/L (22-30); CHLORIDE 105 mmol/L (98-107); CREATININE RESULT 0.95 mg/dL (0.52-1.25); GLUCOSE 91 mg/dL (75-110); POTASSIUM 4.3 mmol/L (3.6-5.0)
[2017-07-04] MEDS ORDERED: LOSARTAN POTASSIUM 25 MG TABLET PO SCH (10:00)
[2017-07-04] MEDS: METOPROLOL SUCCINATE 50 MG TAB.SR.24H PO SCH (10:35)
[2017-07-04] MEDS: LANSOPRAZOLE 30 MG TAB.RAP.DR PO SCH (10:35)
[2017-07-04] MEDS: VANCOMYCIN HCL 1,250 MG in DEXTROSE 5%-WATER 250 ML IV SCH (10:36)
--- NOTE | 2017-07-04 13:57 | PDOC DISCHARGE SUMMARY ---
General - Admit/Disc Date/PCP Admission Date/Primary Care Provider: 06/30/17 20:19 BRAN CERNA PA-C Discharge Date: 07/04/17 - Discharge Diagnosis (1) Sepsis Is this a current diagnosis for this admission?: Yes Summary: Secondary to pneumonia. (2) Pneumonia Is this a current diagnosis for this admission?: Yes Summary: Negative cultures. (3) Hypotension Is this a current diagnosis for this admission?: Yes Summary: Secondary to sepsis. This has resolved. (4) Pulmonary edema Is this a current diagnosis for this admission?: Yes (5) Atrial fibrillation Is this a current diagnosis for this admission?: Yes Summary: Patient had an episode of atrial fibrillation with rapid ventricular rate requiring a diltiazem drip. Patient had rate control. He is sent home on both a beta pascual as well as diltiazem p.o. per (6) COPD (chronic obstructive pulmonary disease) Is this a current diagnosis for this admission?: Yes (7) Hypothyroidism Is this a current diagnosis for this admission?: Yes (8) Hyperkalemia Is this a current diagnosis for this admission?: Yes - Additional Information Resuscitation Status: Full Code Discharge Diet: Cardiac Discharge Activity: Activity As Tolerated Home Medications: Bupropion HCl [Wellbutrin Xl 300mg 24hr Tablet] 300 mg PO DAILY 06/30/17 Hydromorphone HCl [Dilaudid 2 mg Tablet] 4 mg PO Q6HP PRN 06/30/17 Losartan Potassium [Cozaar 25 mg Tablet] 25 mg PO DAILY 06/30/17 Metoprolol Succinate 100 mg PO BID 06/30/17 Oxycodone HCl [Oxycontin] 60 mg PO Q8 06/30/17 Pantoprazole Sodium [Protonix] 40 mg PO DAILY 06/30/17 Warfarin Sodium [Coumadin 5 mg Tablet] 5 mg PO QHS 06/30/17 Testosterone Cypionate [Depo-Testosterone] 200 mg IM WE@1000 07/01/17 Diltiazem HCl [Diltiazem 24Hr Cd] 120 mg PO DAILY #30 cap.er.24h 07/04/17 Flu Vacc [id number] Up/Pf [Fluzone Adlt Quad [id number] Vac 0.5 ml Syr] 0.5 ml IM .DISCHARGE PRN disp.syrin 07/04/17 Levofloxacin [Levaquin 750 mg Tablet] 750 mg PO DAILY #6 tab 07/04/17 History of Present Illness History of Present Illness: AMELIA BOB is a 67 year old male with a history of COPD and atrial fibrillation as well as chronic back pain who was 6 hours prior to presentation developed a nonproductive cough and had an episode of hemoptysis. Emergency room the patient was found to have atrial fibrillation with a rapid ventricular rate, left-sided infiltrate and hypotension. Patient was started on empiric antibiotics and admitted for treatment of pneumonia. Patient also had sepsis given his hypotension Hospital Course Hospital Course: 59-year-old gentleman who presented with pneumonia and sepsis with hypotension. The patient's hypotension resolved. He was also noted to have H fibrillation with a rapid ventricular rate. Patient was started on broad-spectrum antibiotics and had improvement in his respiratory status. On the day of discharge she was back to his baseline respiratory status. During his hospitalization he also had atrial fibrillation with a rapid ventricular rate. Patient was treated with an IV diltiazem drip. He was converted over to p.o. diltiazem and continued on his beta-pascual. His heart rate was controlled. The patient will follow up with his primary care doctor to see whether or not to continue both of these medications. Patient was sent home on Coumadin. He was subtherapeutic however given his hemoptysis will need to keep a close eye on this. He will follow-up with his primary care doctor in 1 week for a PT/INR. Physical Exam Vital Signs: Temp Pulse Resp BP Pulse Ox 98.3 F 84 16 118/82 96 07/04/17 10:15 07/04/17 10:15 07/04/17 10:15 07/04/17 10:15 07/04/17 10:15 Intake & Output 07/03/17 07/04/17 07/05/17 06:59 06:59 06:59 Intake Total 1021 1262 Output Total 1500 975 Balance -479 287 Weight 146.6 kg 147.4 kg General appearance: PRESENT: no acute distress Eye exam: PRESENT: conjunctiva pink. ABSENT: scleral icterus Mouth exam: PRESENT: moist, tongue midline Neck exam: ABSENT: JVD Respiratory exam: PRESENT: clear to auscultation almaz. ABSENT: rales, rhonchi, wheezes Cardiovascular exam: PRESENT: irregular rhythm. ABSENT: diastolic murmur, rubs , systolic murmur GI/Abdominal exam: PRESENT: normal bowel sounds, soft. ABSENT: distended, guarding, mass, organolmegaly, rebound, tenderness Extremities exam: ABSENT: calf tenderness, clubbing, pedal edema Neurological exam: PRESENT: alert, awake, oriented to person, oriented to place , oriented to time, oriented to situation, CN II-XII grossly intact. ABSENT: motor sensory deficit Psychiatric exam: PRESENT: appropriate affect Skin exam: PRESENT: dry, intact, warm. ABSENT: cyanosis, rash Results Laboratory Results: 07/04/17 05:50 07/04/17 05:50 07/04/17 07/04/17 05:50 05:50 WBC 5.9 RBC 4.85 Hgb 14.5 Hct 42.5 MCV 88 MCH 29.9 MCHC 34.1 RDW 14.1 H Plt Count 172 Seg Neutrophils % 68.1 Lymphocytes % 20.7 Monocytes % 7.5 Eosinophils % 3.3 Basophils % 0.4 Absolute Neutrophils 4.0 Absolute Lymphocytes 1.2 Absolute Monocytes 0.4 Absolute Eosinophils 0.2 Absolute Basophils 0.0 Sodium 140.0 Potassium 4.3 Chloride 105 Carbon Dioxide 26 Anion Gap 9 BUN 12 Creatinine 0.95 Est GFR ( Amer) > 60 Est GFR (Non-Af Amer) > 60 Glucose 91 Calcium 8.8 07/01/17 07/01/17 07/01/17 00:27 00:27 05:57 Creatine Kinase 46 L 65 CK-MB (CK-2) 0.92 Troponin I < 0.012 NT-Pro-B Natriuret Pep 07/01/17 07/01/17 07/01/17 05:57 05:57 12:53 Creatine Kinase Cancelled CK-MB (CK-2) 1.69 Troponin I 0.012 NT-Pro-B Natriuret Pep 2690 H 07/01/17 07/01/17 07/01/17 12:53 15:47 15:47 Creatine Kinase 233 H CK-MB (CK-2) Cancelled 4.46 Troponin I Cancelled < 0.012 NT-Pro-B Natriuret Pep Impressions: Abdomen X-Ray 06/30/17 00:00 IMPRESSION: Nonobstructive pattern.Left basilar airspace disease. Chest X-Ray 07/01/17 00:00 IMPRESSION: Persistent left lower lobe pneumonia with new parenchymal opacity at the right base. Congestive failure with interstitial pulmonary edema. Qualifiers PATEINT BEING DISCHARGED WITH ANY OF THE FOLLOWING DIAGNOSIS?: No Plan Discharge Plan: Patient will follow up with his primary care doctor in 1-2 weeks. Will need a PT/INR in 1 week. Time Spent: Greater than 30 Minutes
== END 2017-07-04 11:17 | disposition home or self-care (01) | DRG 871 ==
LOC: ER 17:01 → EH 20:19 → UNDOADMIN 20:30 → ICU 21:30
PROVIDERS: ADMIT Internal Medicine; ATTEND Internal Medicine
PROC: 3E0F73Z Introduction of Anti-inflammatory into Respiratory Tract, Via Natural or Artificial Opening (ICD-10-PCS; 2017-06-30)
PROC: 5A09457 Assistance with Respiratory Ventilation, 24-96 Consecutive Hours, Continuous Positive Airway Pressure (ICD-10-PCS; principal; 2017-07-02)
PROC: 3E0234Z Introduction of Serum, Toxoid and Vaccine into Muscle, Percutaneous Approach (ICD-10-PCS; 2017-07-04)
DX: A41.9 Sepsis, unspecified organism (principal); J81.0 Acute pulmonary edema; J18.1 Lobar pneumonia, unspecified organism; Z68.42 Body mass index [BMI] 45.0-49.9, adult; E87.5 Hyperkalemia; I95.9 Hypotension, unspecified; I48.91 Unspecified atrial fibrillation; J44.9 Chronic obstructive pulmonary disease, unspecified; E03.9 Hypothyroidism, unspecified; G89.29 Other chronic pain; M54.9 Dorsalgia, unspecified; K59.09 Other constipation; F17.210 Nicotine dependence, cigarettes, uncomplicated; E66.01 Morbid (severe) obesity due to excess calories; Z98.84 Bariatric surgery status; Z96.653 Presence of artificial knee joint, bilateral; Z79.899 Other long term (current) drug therapy; Z23 Encounter for immunization; Z87.891 Personal history of nicotine dependence; Z79.01 Long term (current) use of anticoagulants; Z83.6 Family history of other diseases of the respiratory system
CPT/HCPCS: 36415; 71010; 74020; 80048; 80053; 80202; 81001; 82533; 82550; 82553; 82803; 82962; 83605; 83735; 83880; 84484; 85025; 85610; 86850; 86900; 86901; 87040; 90686; 93005; 93010; 94640; 94799; 96361; 96374; 99291; J1644; J1720; J1940; J1956; J3370; J3490; J7030; J7060; J7620

== ENCOUNTER → 2018-04-05 | Outpatient (CLI) | payer MEDICARE ==
--- NOTE | 2018-04-05 14:10 | WOMENS IMAGING REPORT ---
EXAM DESCRIPTION: BONE DENSITY HIP/SPINE COMPLETED DATE/TIME: 04/05/2018 1:49 pm REASON FOR STUDY: BONE DENSITY/M89.9 E29.1 TESTICULAR HYPOFUNCTION M89.9 DISORDER OF BONE, UNSPECI FIED COMPARISON: Abdominal films 10/12/2011 TECHNIQUE: Dual-Energy X-ray Absorptiometry (DEXA) of the AP Spine and Hip. LIMITATIONS: None. FINDINGS: LUMBAR SPINE: The bone mineral density (BMD) measured from L1-L4 in the AP projection correlates with a T-score of +3.4, which is normal as defined by the World Health Organization. HIP: The bone mineral density (BMD) measured in the left femoral neck at the hip correlates with a T-score of +0.9, which is normal as defined by the World Health Organization. IMPRESSION: 1. LUMBAR SPINE: Normal 2. HIP: Normal COMMENT: The World Health Organization defines low BMD as follows: T-score: Normal: Greater than -1.0 Osteopenia: Between -1.0 and -2.5 Osteoporosis: Less than -2.5 without fractures Established osteoporosis: Less than -2.5 with fractures In general, you may wish to consider: Diagnosis Treatment Follow-up DEXA Normal BMD Prevention 2-3 years Osteopenia Prevention/Therapy 1-2 years Osteoporosis Therapy Yearly TECHNICAL DOCUMENTATION: JOB ID: [id number] [email or web address]- All Rights Reserved Reading location - IP/workstation name: [email or web address]
== END ==
LOC: WI 13:25
PROVIDERS: ATTEND Physician Assistant
DX: M89.9 Disorder of bone, unspecified (principal)
CPT/HCPCS: 77080

== ENCOUNTER 2018-07-19 12:27 | Inpatient (IN) | payer MEDICARE ==
[2018-07-19] MEDS ORDERED: NORMAL SALINE 1000 ML 1,000 ML IV PRN (12:41)
--- NOTE | 2018-07-19 12:42 | ER Document Report ---
ED Medical Screen (RME) - General Chief Complaint: Abnormal Lab Results Stated Complaint: POSSIBLE DEHYDRATION Time Seen by Provider: 07/19/18 12:36 Notes: 68 years old male with multiple medical problem was referred here by the primary care physician for elevated INR, abnormal chemistry suggestive of dehydration. Patient had diarrhea had about 10 stools. TRAVEL OUTSIDE OF THE [place] IN LAST 30 DAYS: No - Related Data Allergies/Adverse Reactions: No Known Allergies Allergy (Verified 07/19/18 12:33) Past Medical History - Social History Chew tobacco use (# tins/day): No Frequency of alcohol use: None Drug Abuse: None - Past Medical History Cardiac Medical History: Reports: Hx Atrial Fibrillation Pulmonary Medical History: Reports: Hx COPD Neurological Medical History: Denies: Hx Seizures Endocrine Medical History: Reports: Hx Hypothyroidism Renal/ Medical History: Denies: Hx Peritoneal Dialysis Musculoskeltal Medical History: Reports Hx Arthritis - DDD Past Surgical History: Reports: Hx Gastric Bypass Surgery - 1993, Hx Orthopedic Surgery - Herniated Disc Repair, Bilateral Knee Replacement - Immunizations Hx Diphtheria, Pertussis, Tetanus Vaccination: Yes History of Influenza Vaccine for 06/2017 - 11/2017 Season: No Doctor's Discharge - Discharge Referrals: BRAN CERNA PA-C [Primary Care Provider] - Follow up as needed
[2018-07-19 13:26] LABS: ABSOLUTE BASOPHILS # (AUTO) 0.1 10^3/uL (0.0-0.2); ABSOLUTE EOSINOPHILS # (AUTO) 0.1 10^3/uL (0.0-0.6); ABSOLUTE LYMPHOCYTES (AUTO) 2.6 10^3/uL (0.5-4.7); ABSOLUTE MONOCYTES (AUTO) 0.6 10^3/uL (0.1-1.4); ABSOLUTE NEUT (AUTO) 6.7 10^3/uL (1.7-8.2); BASOPHILS % (AUTO) 0.6 % (0-2); EOSINOPHILS % (AUTO) 0.7 % (0-6); HEMATOCRIT 48.5 % (37.9-51.0); HEMOGLOBIN 16.1 g/dL (13.5-17.0); LYMPHOCYTES % (AUTO) 25.6 % (13-45); MEAN CORPUSCULAR HEMOGLOBIN 30.6 pg (27.0-33.4); MEAN CORPUSCULAR HGB CONC 33.2 g/dL (32.0-36.0); MEAN CORPUSCULAR VOLUME 92 fl (80-97); PLATELET COUNT 323 10^3/uL (150-450); RED BLOOD COUNT 5.27 10^6/uL (4.35-5.55); RED CELL DISTRIBUTION WIDTH 14.6 % (11.5-14.0); SEGMENTED NEUTROPHILS % (AUTO) 67.1 % (42-78); TOTAL CELLS COUNTED % (AUTO) 100 %
--- NOTE | 2018-07-19 13:36 | ER Document Report ---
ED General - General Chief Complaint: Abnormal Lab Results Stated Complaint: POSSIBLE DEHYDRATION Time Seen by Provider: 07/19/18 12:36 Mode of Arrival: Ambulatory Information source: Patient Notes: 68-year-old male with a history of A. fib presents emergency department with complaints of abnormal lab work. Patient states that he had routine blood work done by his primary care physician, Bran Cerna. He states that he was contacted and told to go to the emergency department as his INR was elevated and his creatinine was elevated. Patient states that he has had a 2-week history of diarrhea. His primary care physician thought that he might be dehydrated requiring some fluids for his abnormal creatinine. Patient denies any chest pain, shortness of breath, abdominal pain, nausea, vomiting. Patient states that he just feels dehydrated. TRAVEL OUTSIDE OF THE [place] IN LAST 30 DAYS: No - HPI Onset: Just prior to arrival Onset/Duration: Sudden Quality of pain: No pain Severity: None Associated symptoms: Diarrhea Exacerbated by: Denies Relieved by: Denies Similar symptoms previously: No - Related Data Allergies/Adverse Reactions: No Known Allergies Allergy (Verified 07/19/18 12:33) Past Medical History - Social History Smoking Status: Never Smoker Chew tobacco use (# tins/day): No Frequency of alcohol use: None Drug Abuse: None Family History: COPD Patient has suicidal ideation: No Patient has homicidal ideation: No - Past Medical History Cardiac Medical History: Reports: Hx Atrial Fibrillation Pulmonary Medical History: Reports: Hx COPD Neurological Medical History: Denies: Hx Seizures Endocrine Medical History: Reports: Hx Hypothyroidism Renal/ Medical History: Denies: Hx Peritoneal Dialysis Musculoskeletal Medical History: Reports Hx Arthritis - DDD Past Surgical History: Reports: Hx Gastric Bypass Surgery - 1993, Hx Orthopedic Surgery - Herniated Disc Repair, Bilateral Knee Replacement - Immunizations Hx Diphtheria, Pertussis, Tetanus Vaccination: Yes Hx Pneumococcal Vaccination: 07/20/09 Review of Systems - Review of Systems Constitutional: Weakness EENT: No symptoms reported Cardiovascular: No symptoms reported Respiratory: No symptoms reported Gastrointestinal: Diarrhea Genitourinary: No symptoms reported Male Genitourinary: No symptoms reported Musculoskeletal: No symptoms reported Skin: No symptoms reported Hematologic/Lymphatic: No symptoms reported Neurological/Psychological: No symptoms reported -: Yes All other systems reviewed and negative Physical Exam - Vital signs Vitals: Temp Pulse Resp BP Pulse Ox 97.7 F 68 16 98/49 L 100 07/19/18 13:33 07/19/18 13:33 07/19/18 13:33 07/19/18 13:33 07/19/18 13:33 - General Notes: PHYSICAL EXAMINATION: GENERAL: Well-appearing, well-nourished and in no acute distress. HEAD: Atraumatic, normocephalic. EYES: Pupils equal round and reactive to light, extraocular movements intact, sclera anicteric, conjunctiva are normal. ENT: Nares patent, oropharynx clear without exudates. Moist mucous membranes. NECK: Normal range of motion, supple without lymphadenopathy LUNGS: Breath sounds clear to auscultation bilaterally and equal. No wheezes rales or rhonchi. HEART: Regular rate and rhythm without murmurs ABDOMEN: Soft, obese, nontender, nondistended abdomen. No guarding, no rebound. No masses appreciated. Musculoskeletal: Normal range of motion, no pitting or edema. No cyanosis. NEUROLOGICAL: Cranial nerves grossly intact. Normal speech, normal gait. Normal sensory, motor exams PSYCH: Normal mood, normal affect. SKIN: Warm, Dry, normal turgor, no rashes or lesions noted. Course - Re-evaluation Re-evalutation: 07/19/18 15:49 Blood pressure has been low in the ED. Patient says he's had diarrhea for the last 2 weeks. Just feels dehydrated. Hx of A. fib and is on coumadin. INR today elevated at 8.76. Cr is 1.48. Patient given 3L of fluids. Continues to be hypotensive. Patient denies taking additional BP medication today. I gave the patient 2.5mg of oral vitamin K. I will admit to hospitalist for further workup. - Vital Signs Vital signs: Temp Pulse Resp BP Pulse Ox 97.7 F 68 16 110/52 L 96 07/19/18 13:33 07/19/18 13:33 07/19/18 14:27 07/19/18 14:27 07/19/18 14:01 - Laboratory Result Diagrams: 07/19/18 13:00 07/19/18 13:50 Laboratory results interpreted by me: 07/19/18 07/19/18 07/19/18 13:00 13:00 13:50 RDW 14.6 H PT 75.7 H* INR 8.76 H* Chloride 109 H Carbon Dioxide 17 L BUN 29 H Creatinine 1.48 H Est GFR ( Amer) 57 L Est GFR (Non-Af Amer) 47 L Total Protein 5.2 L Albumin 2.5 L Discharge - Discharge Clinical Impression: Supratherapeutic INR Acute renal failure Qualifiers: Acute renal failure type: unspecified Qualified Code(s): N17.9 - Acute kidney failure, unspecified Condition: Good Disposition: ADMITTED OBSERVATION Admitting Provider: Hospitalist Referrals: BRAN CERNA PA-C [Primary Care Provider] - Follow up as needed
[2018-07-19 14:16] LABS: INTERNATIONAL RATION (INR) 8.76; PROTHROMBIN TIME 75.7 SEC (11.4-15.4)
[2018-07-19 14:31] LABS: ALANINE AMINOTRANSFERASE 30 U/L (21-72); ALBUMIN 2.5 g/dL (3.5-5.0); ALKALINE PHOSPHATASE 94 U/L (38-126); ANION GAP 14 (5-19); ASPARTATE AMINO TRANSFERASE 24 U/L (17-59); BILIRUBIN,DIRECT 0.2 mg/dL (0.0-0.4); BILIRUBIN,TOTAL 0.4 mg/dL (0.2-1.3); BLOOD UREA NITROGEN 29 mg/dL (7-20); CALCIUM 8.4 mg/dL (8.4-10.2); CARBON DIOXIDE 17 mmol/L (22-30); CHLORIDE 109 mmol/L (98-107); GLUCOSE 100 mg/dL (75-110); POTASSIUM 4.6 mmol/L (3.6-5.0); SODIUM 139.7 mmol/L (137-145); TOTAL PROTEIN 5.2 g/dL (6.3-8.2)
[2018-07-19] MEDS ORDERED: PHYTONADIONE 5 MG TABLET PO ONE ×3 (14:39→20:45)
[2018-07-19] MEDS ORDERED: NORMAL SALINE 1000 ML 1,000 ML IV ONE (14:40)
[2018-07-19] MEDS: NORMAL SALINE 1000 ML 1,000 ML IV PRN ×2 (15:00→17:09)
[2018-07-19] MEDS ORDERED: ACETAMINOPHEN 325 MG TABLET PO PRN (16:13)
[2018-07-19 19:15] LABS: APPEARANCE,URINE SLIGHTLY-CLOUDY; BILIRUBIN,URINE NEGATIVE (NEGATIVE); COLOR,URINE YELLOW; GLUCOSE, URINE NEGATIVE (NEGATIVE); KETONES,URINE NEGATIVE (NEGATIVE); LEUKOCYTE ESTERASE,URINE NEGATIVE (NEGATIVE); NITRITE,URINE NEGATIVE (NEGATIVE); PROTEIN,URINE NEGATIVE (NEGATIVE); URINE SPECIFIC GRAVITY 1.015; UROBILINOGEN,URINE NEGATIVE mg/dL (<2.0)
[2018-07-19] MEDS: LACTOBACILLUS ACIDOPHILUS 250 MG TAB PO SCH (19:54)
[2018-07-19] MEDS: METRONIDAZOLE 500 MG/NS RTU 500 MG/100 ML RTUPB IV SCH ×2 (19:57→23:10)
--- NOTE | 2018-07-19 20:04 | RADIOLOGY REPORT (SQ) ---
EXAM DESCRIPTION: CT ABD/PELVIS ORAL ONLY COMPLETED DATE/TIME: 07/19/2018 7:52 pm REASON FOR STUDY: Diarrhea, hypovolemia, [place] COMPARISON: 10/08/2011 TECHNIQUE: CT scan of the abdomen and pelvis performed with oral contrast and no intravenous contras t. Images reviewed with lung, soft tissue, and bone windows. Reconstructed coronal and sagittal MPR i mages reviewed. All images stored on PACS. All CT scanners at this facility use dose modulation, iterative reconstruction, and/or weight based d osing when appropriate to reduce radiation dose to as low as reasonably achievable (ALARA). [facility]: Dose Right [facility]: CareDose [facility]: Dose Right [facility]: Teradose 4D [facility]: Smart Technologies RADIATION DOSE: CT Rad equipment meets quality standard of care and radiation dose reduction techniq ues were employed. CTDIvol: 30.0 mGy. DLP: 1444 mGy-cm. mGy. LIMITATIONS: None. FINDINGS: LOWER CHEST: No significant findings. No nodules or infiltrates. NON-CONTRASTED LIVER, SPLEEN, ADRENALS: Evaluation limited by lack of IV contrast. No identified sign ificant masses. PANCREAS: No masses. No peripancreatic inflammatory changes. GALLBLADDER: Distended. No obvious stones. RIGHT KIDNEY AND URETER: No suspicious masses. Assessment limited by lack of IV contrast. No signif icant calcifications. No hydronephrosis or hydroureter. LEFT KIDNEY AND URETER: Large upper pole cysts stable. No significant calcifications. No hydronep hrosis or hydroureter. AORTA AND RETROPERITONEUM: No aneurysm. No retroperitoneal masses or adenopathy. BOWEL AND PERITONEAL CAVITY: No obvious masses or inflammatory changes. No free fluid. Diverticulosi s. No diverticulitis. APPENDIX: Not visualized. PELVIS, BLADDER, AND ABDOMINAL WALL: No abnormal pelvic masses. No abdominal wall hernias. Bladder un remarkable. BONES: No significant findings. OTHER: No other significant finding. IMPRESSION: Distended gallbladder without obvious stones. No other significant finding. TECHNICAL DOCUMENTATION: JOB ID: [id number] Quality ID # [id number]: Final reports with documentation of one or more dose reduction techniques (e.g., Au tomated exposure control, adjustment of the mA and/or kV according to patient size, use of iterative reconstruction technique) 2010 [employer]- All Rights Reserved Reading location - IP/workstation name: [email or web address]
[2018-07-19] MEDS ORDERED: OXYCODONE HCL IR 5 MG TABLET PO PRN (20:45)
[2018-07-19] MEDS: OXYCODONE HCL SR 10 MG TABLET PO SCH (21:31)
[2018-07-19] MEDS ORDERED: (PENDING PHARMACY ID) (Oxycodone Hcl [Oxycontin] 30 MG) PO SCH (22:00)
--- NOTE | 2018-07-19 23:21 | HISTORY AND PHYSICAL E ---
History and Physical NAME: AMELIA BOB : 1950 AGE: 68Y ADMITTED: 07/19/2018 ROOM: 610 CODE STATUS: Full code. PRIMARY CARE PROVIDER: Jannie Sung PA-C. RUG CUTTER: Cornelius Gomes M.D. GLASS BLOWER: Whit Rincon M.D. CHIEF COMPLAINT: Abnormal labs. HISTORY OF PRESENT ILLNESS: The patient is a 68-year-old male with a past medical history of atrial fibrillation on chronic anticoagulation with Coumadin. The patient presented to the emergency department with a chief complaint of abnormal labs. The patient who has had diarrhea for 2 weeks presented to his primary care provider's office and labs were done. At that time the patient was found to have abnormal labs and was sent to the emergency department for evaluation. Upon presentation the patient had an INR of 8.76, a creatinine of 1.48. The patient states that he has had diarrhea for about 2 weeks. He denies any known trigger symptom. He denies any suspect meals. No fevers, no nausea or vomiting. His appetite has remained the same. No shortness of breath, dizziness, or chest pain. The patient actually felt well enough to go on a cruise and had diarrhea on the cruise but was not otherwise ill. The patient describes himself as feeling quite dehydrated. Upon presentation to the emergency department the patient was found to be profoundly hypotensive with MAPs in the 40s and 50s. The patient received a total of 2 liters of saline bolus and has been referred to the hospitalist for admission and management. PAST MEDICAL HISTORY: 1. Chronic atrial fibrillation. 2. Chronic obstructive pulmonary disease. 3. Hypothyroidism. 4. Degenerative joint disease. 5. Opiate dependency continuous. PAST SURGICAL HISTORY: 1. Gastric bypass surgery in 1993. 2. Orthopedic surgery due to herniated disk repair. 3. Bilateral knee replacements. ALLERGIES: No known drug allergies. HOME MEDICATIONS: 1. Wellbutrin 300 mg p.o. daily. 2. Dilaudid 4 mg p.o. q.6 hours p.r.n. 3. Cozaar 25 mg p.o. daily. 4. Toprol XL 100 mg p.o. b.i.d. 5. Oxycodone 60 mg p.o. q.8 hours. 6. Protonix 40 mg p.o. daily. 7. Warfarin 5 mg p.o. q. hour of sleep. 8. Testosterone 200 mg IM weekly. 9. Cardizem CD 120 mg p.o. daily. SOCIAL HISTORY: The patient currently resides at home with his , who is his surrogate decision maker. The patient does have a remote history of tobacco use. Stopped smoking a number of years ago. Denies any alcohol or illicit drug use. The patient is retired. His 's name is Fabiola. FAMILY MEDICAL HISTORY: Positive for COPD. Denies any significant past medical history in siblings, children, but did have COPD in his parents. REVIEW OF SYSTEMS: CONSTITUTIONAL: No fevers, chills, dizziness, or weakness. No change of appetite. INTEGUMENTARY: The patient denies any diaphoresis, rashes, bruising, itching. HEENT: Denies any vision change, hearing loss, nasal drainage, or sore throat. No headache. CARDIOVASCULAR: The patient denies any chest pain, edema, heart palpitations. RESPIRATORY: Denies any cough, sputum production, or hemoptysis. GASTROINTESTINAL: Denies any nausea, vomiting. No abdominal pain, bloody hematemesis, constipation, melena, or hematochezia. Does admit to watery diarrhea. GENITOURINARY: Denies any hematuria, polyuria, or dysuria. MUSCULOSKELETAL: Denies any acute joint pains, does have chronic pain. NEUROLOGIC: Denies any seizures, tremors, or loss of consciousness. HEMATOLOGIC: Denies any jessie bleeding, easy bruising. ENDOCRINE: Denies any recent weight changes. PSYCHIATRIC: No suicidal or homicidal ideation. The rest of the review of the other organ systems is negative. PHYSICAL EXAMINATION: GENERAL: On examination the patient is a well-developed, obese, 68-year-old male who is awake, alert. He is oriented to person, place, time, and situation. He is verbal, conversational, does not appear to be in any acute distress. VITAL SIGNS: Temperature 97.7, heart rate 74, respirations 19, blood pressure 84/47, oxygen saturation is 96% on room air. SKIN: Warm and dry; no rash, he is not diaphoretic. HEENT: Pupils equal, round reactive to light and accommodation. Conjunctivae are pink. Sclerae are nonicteric. There are no mouth lesions. Tongue is midline. NECK: Supple. No JVD. No palpable lymphadenopathy or thyromegaly. CARDIOVASCULAR: Heart is irregularly irregular. There is no rub. CHEST: Clear, symmetrical, unlabored. ABDOMEN: Soft, there is no tenderness. Bowel sounds are present. EXTREMITIES: No clubbing, cyanosis, edema, or peripheral signs of embolization. Pedal pulses +1 noted bilaterally. PSYCHIATRIC: Appropriate affect, pleasant mood. NEUROLOGIC: Grossly intact. DIAGNOSTICS: Lab values are as follows - Hematology obtained on 07/19/2018; WBC is 11.0, hemoglobin 16.1, hematocrit is 48.5, platelet count is 323,000. Coagulation obtained on 07/19/2018; PT is 75.7, INR is 8.67. Chemistry obtained on 07/19/2018; sodium is 139, potassium 4.6, chloride is 109, carbon dioxide is 17, BUN 29, creatinine is 1.48, glucose 100, calcium is 8.4, bilirubin 0.4, AST 24, ALT 30, alk-phos 94, total protein 5.2, albumin 2.5. IMPRESSION AND PLAN: 1. Diarrhea, uncertain as to the exact etiology of this. The patient denies foul smelling. Therefore, will obtain stool study, start the patient on probiotic therapy and follow. 2. Hypovolemia. The patient has 2 received 2 liters in the emergency department. Will give an additional bolus and place the patient on continuous fluids. At this time he does not meet shock criteria. 3. Coagulopathy. The patient did receive 0.25 of vitamin K in the emergency department. He is being hydrated. Will repeat INR in the a.m. and hold Coumadin tonight and follow. 4. Atrial fibrillation. At this time the patient is rate controlled. However, we will hold his yan agents given that he is hypotensive. The patient's condition will be guarded at this time. 5. Opiate dependency continuous. The patient does need to be on a bowel regimen for this. However, will resume the patient's home medication once reconcilable. 6. Hypertension. The patient is actually hypotensive at this time. 7. Metabolic acidosis due to volume losses. Will aggressively hydrate and follow the patient's chemistries and follow. CODE STATUS: The patient is a full code. DISPOSITION: Depending on the patient's symptomatology and diagnostic findings will reevaluate in the a.m. Will admit the patient to inpatient ICU as the patient's suspected length of stay should surpass two midnights. TIME SPENT: On this admission, including assessment, plan, physical examination, patient education, review of records, and family meeting is 60 minutes. DICTATING PHYSICIAN: EDUARD SHORT NP [id number] PHY#: [id number] ID: [id number] JOB#: [id number] ACCT: [id number] cc:PAYAL BRITO M.D. > MTDPing
[2018-07-20] MEDS ORDERED: NOREPINEPHRINE BITARTRATE INJ/PF 4 MG/4 ML SDV IV ONE (00:59)
[2018-07-20] MEDS: DEXTROSE 5%-WATER 250 ML with NOREPINEPHRINE BITARTRATE 4 MG IV PRN ×4 (01:08→08:21)
[2018-07-20] MEDS: NORMAL SALINE 1000 ML 1,000 ML IV PRN ×5 (01:09→20:39)
[2018-07-20 04:01] LABS: HEMATOCRIT 41.4 % (37.9-51.0); MEAN CORPUSCULAR HEMOGLOBIN 30.3 pg (27.0-33.4); MEAN CORPUSCULAR HGB CONC 33.6 g/dL (32.0-36.0); MEAN CORPUSCULAR VOLUME 90 fl (80-97); PLATELET COUNT 267 10^3/uL (150-450); RED BLOOD COUNT 4.59 10^6/uL (4.35-5.55); RED CELL DISTRIBUTION WIDTH 14.1 % (11.5-14.0); WHITE BLOOD COUNT 7.8 10^3/uL (4.0-10.5)
[2018-07-20 04:02] LABS: HEMOGLOBIN 13.9 g/dL (13.5-17.0)
[2018-07-20 04:16] LABS: INTERNATIONAL RATION (INR) 7.59; PROTHROMBIN TIME 67.6 SEC (11.4-15.4)
[2018-07-20 04:20] LABS: ANION GAP 8 (5-19); BLOOD UREA NITROGEN 26 mg/dL (7-20); CARBON DIOXIDE 17 mmol/L (22-30); CHLORIDE 113 mmol/L (98-107); GLUCOSE 99 mg/dL (75-110); POTASSIUM 4.6 mmol/L (3.6-5.0); SODIUM 138.4 mmol/L (137-145)
[2018-07-20] MEDS: OXYCODONE HCL SR 10 MG TABLET PO SCH ×3 (05:31→21:11)
[2018-07-20] MEDS: METRONIDAZOLE 500 MG/NS RTU 500 MG/100 ML RTUPB IV SCH ×4 (05:31→23:02)
[2018-07-20] MEDS ORDERED: PHYTONADIONE INJ 10 MG/1 ML AMPULE SUBCUT ONE (08:30)
--- NOTE | 2018-07-20 09:11 | PROGRESS NOTE E ---
Progress Note NAME: AMELIA BOB : 1950 AGE: 68Y DATE: 07/20/2018 ROOM: [facility] SUBJECTIVE: The patient was sitting up in bed. The patient states that he feels better today in comparison to when he came in; however, he is tired, as he did not get much rest overnight. The patient did require Levophed, and at this time appears to be on 10 mcg, which is maintaining a MAP of around 70. The patient has had very little in the way of urine output. It appears that the patient's urine output has been limited. The patient has received a total of what appears to be a little over 4 liters this admission, with only 125 out. The patient has been afebrile. He is not tachycardic and does not voice any specific concerns at this time. REVIEW OF SYSTEMS: The rest of the review of systems is negative. MEDICATION: Reviewed. OBJECTIVE: GENERAL: Patient is a 68-year-old male, who is awake, alert and oriented to person, place and situation. He is verbal and conversational. Does not appear to be in acute distress. VITAL SIGNS: Temperature is 98.0, pulse 84, respirations 13, blood pressure is 100/77. Oxygen saturation is 100% on room air. SKIN: Warm and dry. No rash. Not diaphoretic. HEENT: Pupils equal, round, reactive to light and accommodation. Conjunctivae are pink. NECK: No JVP. CVS: Heart is irregularly irregular. There is no rub. CHEST: Clear, symmetrical, unlabored. ABDOMEN: Soft, nondistended. EXTREMITIES: No clubbing, cyanosis or edema. PSYCHIATRIC: Appropriate affect, pleasant mood. DIAGNOSTICS: Lab values are as follows: Hematology obtained on 07/20/2018: WBC is 7.8, hemoglobin is 13.9, hematocrit is 41.4, platelet count is 376,000. Chemistry obtained on 07/20/2018: Sodium is 138, potassium 4.6, chloride is 113, carbon dioxide is 17. BUN 26, creatinine is 1.3. Glucose 99, calcium is 8.0. Magnesium is 1.6. IMPRESSION AND PLAN: 1. ACUTE KIDNEY INJURY, SECONDARY TO PROFOUND HYPOVOLEMIA, RESULTING IN HYPOVOLEMIC SHOCK. The patient is requiring norepinephrine at this time. Will attempt to wean the patient off of it and give another liter bolus over 2 hours and continue IV fluids. The patient has no evidence of pulmonary edema at this time. Will add on an albumin. Given the patient's history of Kenney-en-Y, may be third spacing through the abdomen. Will follow. 2. DIARRHEA. This has completely resolved. The patient denied foul-smelling diarrhea anyway; however, stool studies have been added. The patient has not produced a sample. Will continue probiotic therapy and follow. 3. COAGULOPATHY. The patient did not absorb oral vitamin K. Will give subcutaneously. He has been hydrated. Repeat INR in the a.m. and follow. 4. CHRONIC ATRIAL FIBRILLATION. The patient is rate-controlled at this time. Continuing to hold his yan agents, given that he is hypotensive. Will follow. 5. OPIATE DEPENDENCY, CONTINUOUS. Continue current regimen. 6. HYPERTENSION. The patient is actually hypotensive at this time. 7. METABOLIC ACIDOSIS, SECONDARY TO VOLUME LOSS. Continue to aggressively hydrate and follow chemistries. DISPOSITION: The patient is a FULL CODE. Depending on patient's symptomatology and diagnostic findings, will reevaluate in the a.m. Time spent on this critical care visit, including assessment, plan, physical examination, patient education and review of records is 35 minutes. DICTATING PHYSICIAN: EDUARD SHORT NP [id number] PHY#: [id number] ID: [id number] JOB#: [id number] ACCT: [id number] cc: > MTDD
[2018-07-20] MEDS: LACTOBACILLUS ACIDOPHILUS 250 MG TAB PO SCH ×2 (10:31→17:50)
[2018-07-21] MEDS ORDERED: METRONIDAZOLE 500 MG/NS RTU 500 MG/100 ML RTUPB IV ONE (05:23)
[2018-07-21] MEDS: OXYCODONE HCL SR 10 MG TABLET PO SCH ×3 (05:26→21:17)
[2018-07-21] MEDS: METRONIDAZOLE 500 MG/NS RTU 500 MG/100 ML RTUPB IV SCH ×3 (05:27→18:18)
[2018-07-21] MEDS: NORMAL SALINE 1000 ML 1,000 ML IV PRN ×3 (06:05→18:18)
[2018-07-21 06:35] LABS: ALANINE AMINOTRANSFERASE 31 U/L (21-72); ALBUMIN 2.1 g/dL (3.5-5.0); ALKALINE PHOSPHATASE 77 U/L (38-126); ANION GAP 8 (5-19); ASPARTATE AMINO TRANSFERASE 18 U/L (17-59); BILIRUBIN,DIRECT 0.2 mg/dL (0.0-0.4); BILIRUBIN,TOTAL 0.6 mg/dL (0.2-1.3); BLOOD UREA NITROGEN 21 mg/dL (7-20); CALCIUM 7.7 mg/dL (8.4-10.2); CARBON DIOXIDE 18 mmol/L (22-30); CHLORIDE 112 mmol/L (98-107); GLUCOSE 76 mg/dL (75-110); INTERNATIONAL RATION (INR) 2.48; POTASSIUM 4.2 mmol/L (3.6-5.0); SODIUM 137.9 mmol/L (137-145); TOTAL PROTEIN 4.6 g/dL (6.3-8.2)
[2018-07-21] MEDS ORDERED: METOPROLOL TARTRATE PF/INJ 5 MG/5 ML SDV IV ONE ×2 (07:59→08:15)
[2018-07-21] MEDS ORDERED: DILTIAZEM HCL 30 MG TABLET PO SCH (08:00)
[2018-07-21] MEDS ORDERED: NORMAL SALINE 1000 ML 1,000 ML IV ONE (08:00)
[2018-07-21] MEDS: METHYLPREDNISOLONE INJ 125 MG/2 ML SDV IV SCH ×3 (08:05→21:19)
--- NOTE | 2018-07-21 09:43 | RADIOLOGY REPORT (SQ) ---
EXAM DESCRIPTION: CHEST 2 VIEWS COMPLETED DATE/TIME: 07/21/2018 9:01 am REASON FOR STUDY: Hypotension, volume resuscitation COMPARISON: 07/14/2017. EXAM PARAMETERS: NUMBER OF VIEWS: two views TECHNIQUE: Digital Frontal and Lateral radiographic views of the chest acquired. RADIATION DOSE: NA LIMITATIONS: none FINDINGS: LUNGS AND PLEURA: No opacities, masses or pneumothorax. No pleural effusion. MEDIASTINUM AND HILAR STRUCTURES: No masses or contour abnormalities. HEART AND VASCULAR STRUCTURES: Heart normal size. No evidence for failure. BONES: No acute findings. Degenerative changes in the spine and shoulders. HARDWARE: None in the chest. Hardware in the cervical spine. OTHER: No other significant finding. IMPRESSION: NO ACUTE RADIOGRAPHIC FINDING IN THE CHEST. TECHNICAL DOCUMENTATION: JOB ID: [id number] [employer]- All Rights Reserved Reading location - IP/workstation name: [email or web address]
[2018-07-21] MEDS ORDERED: NORMAL SALINE 500 ML IV PRN (09:46)
[2018-07-21] MEDS: LACTOBACILLUS ACIDOPHILUS 250 MG TAB PO SCH ×2 (11:44→18:19)
[2018-07-21] MEDS: DILTIAZEM HCL 30 MG TABLET PO SCH ×2 (11:44→18:18)
[2018-07-21] MEDS: ALBUMIN HUMAN 12.5 GM/50 ML RTUINJ IV SCH ×2 (11:45→12:03)
[2018-07-21 12:11] LABS: VENOUS BLOOD HCO3 19.1 mmol/L (20-32); VENOUS BLOOD PCO2 40.3 mmHg (35-63); VENOUS BLOOD PH 7.29 (7.30-7.42)
--- NOTE | 2018-07-21 12:39 | EKG REPORT ---
SEVERITY:- ABNORMAL ECG - ATRIAL FIBRILLATION BORDERLINE LEFT AXIS DEVIATION : Confirmed by: Chely Blount MD 21-Jul-2018 12:38:44
[2018-07-21] MEDS ORDERED: DEXTROSE 5%-WATER 250 ML with PHENYLEPHRINE HCL 40 MG IV PRN ×2 (17:01)
[2018-07-21] MEDS: BUPROPION HCL 100 MG TABLET PO SCH (21:18)
--- NOTE | 2018-07-21 23:41 | PROGRESS NOTE E ---
Progress Note NAME: AMELIA BOB : 1950 AGE: 68Y DATE: 07/21/2018 ROOM: [facility] SUBJECTIVE: The patient was seen earlier today on rounds. The patient states that he feels a little better. The patient has had no reported episodes of vomiting. No diarrhea. He denies any shortness of breath, dizziness or chest pain. The patient states that he feels he would probably do better in his home environment and does not voice any other concerns at this time. REVIEW OF SYSTEMS: The rest of the review of systems is negative. MEDICATIONS: Reviewed. OBJECTIVE: GENERAL: The patient is a 68-year-old male who is awake, alert and oriented to person, place, time and situation. He is verbal and conversational in speech. VITAL SIGNS: Temperature is 98.3, pulse of 120, blood pressure is 118/76, respirations 15, oxygen saturation 100% on room air. SKIN: Warm and dry. No rash, not diaphoretic. HEENT: Pupils are reactive. There is no evidence of JVP. CARDIOVASCULAR: Heart is irregularly irregular, tachycardic. No rub. CHEST: Clear, symmetrical, unlabored. ABDOMEN: Obese, soft, nondistended. EXTREMITIES: No clubbing, cyanosis. There is no edema. PSYCHIATRIC: Appropriate affect, pleasant mood. DIAGNOSTICS: Lab values are as follows: Hematology obtained on 07/20/2018: WBC is 7.8, hemoglobin 13.9, hematocrit is 41.4, platelet count is 267,000. Chemistry obtained on 07/21/2018: Sodium is 137, potassium 4.2, chloride is 112, carbon dioxide 18, BUN 21, creatinine is 0.11, glucose is 76, calcium is 7.7, magnesium is 1.1. Bilirubin is 0.6. AST 18, ALT is 31, alk phos 77. Total protein 4.6, albumin 2.1. ASSESSMENT: 1. UNCERTAIN OF THE EXACT UNDERLYING ETIOLOGY OF THE PATIENT'S HYPOTENSION. The patient does not, on clinical examination, appear gravely ill. The patient is mentating in a stable state; however, he has been unsuccessful in coming off vasopressors. The patient, at this time, is becoming persistently tachycardic and appears to be in a rapid ventricular response with his atrial fibrillation, though this is most likely due to pressors. The patient has received volume resuscitation. His chest x-ray has remained clear during this process. The patient is not making lactic acid and is not making troponin; therefore, will continue to aggressively hydrate. Additionally, I discussed the case with Surgery, who has agreed to place an A-line, given the patient's significant tachyarrhythmias and the absence of any evidence of sepsis. Will utilize Gaurav-Synephrine if needed for pressure support. However, at this time, I do feel that we are not capturing the patient's true blood pressure, given his morbid obesity, and hopeful to have more pressure with A-line readings. 2. HYPOVOLEMIC SHOCK. It appears the patient has received 7 liters of volume resuscitation and still continues at 125 an hour. The patient's urine output has been steady, but not impressive. The patient has no evidence of pulmonary edema. We will continue to give the patient volume resuscitation and follow. Additionally, given the patient persists to have hypotension, we will add a B12 as well. 3. ACUTE KIDNEY INJURY, SECONDARY TO #2. The patient's creatinine has normalized. 4. DIARRHEA, COMPLETELY RESOLVED. The patient denied any foul-smelling diarrhea in any way. Continue with the probiotic therapy. 5. COAGULATION. Do not believe the patient absorbs vitamin K and had to be given subcutaneously. Repeat INR is therapeutic at this time. 6. CHRONIC ATRIAL FIBRILLATION WITH RAPID VENTRICULAR RESPONSE. This is due to compensation, due to the patient's increasing blood pressure. Will become much more judicious with vasopressor and resume a yan agent at this time. 7. OPIATE DEPENDENCE, CONTINUOUS. Continue current regimen. 8. HYPERTENSION. The patient is hypotensive at this time. 9. METABOLIC ACIDOSIS. This is secondary to volume loss. Continue to aggressively hydrate and follow. DISPOSITION: The patient is a FULL CODE. Depending on patient's symptomatology and diagnostic findings, we will reevaluate in the a.m. Time spent on this critical care visit, including assessment, plan, physical examination, patient education and review of records, was 60 minutes. DICTATING PHYSICIAN: EDUARD SHORT NP [id number] PHY#: [id number] ID: [id number] JOB#: [id number] ACCT: [id number] cc: >
[2018-07-22] MEDS: DILTIAZEM HCL 30 MG TABLET PO SCH ×4 (00:14→17:04)
[2018-07-22] MEDS: METRONIDAZOLE 500 MG/NS RTU 500 MG/100 ML RTUPB IV SCH ×2 (00:14→06:19)
[2018-07-22 04:11] LABS: HEMATOCRIT 35.6 % (37.9-51.0); HEMOGLOBIN 12.4 g/dL (13.5-17.0); MEAN CORPUSCULAR HEMOGLOBIN 31.5 pg (27.0-33.4); MEAN CORPUSCULAR HGB CONC 34.7 g/dL (32.0-36.0); MEAN CORPUSCULAR VOLUME 91 fl (80-97); PLATELET COUNT 168 10^3/uL (150-450); RED BLOOD COUNT 3.93 10^6/uL (4.35-5.55); RED CELL DISTRIBUTION WIDTH 13.8 % (11.5-14.0); WHITE BLOOD COUNT 4.3 10^3/uL (4.0-10.5)
[2018-07-22 04:19] LABS: INTERNATIONAL RATION (INR) 1.99; PROTHROMBIN TIME 23.6 SEC (11.4-15.4)
[2018-07-22 04:31] LABS: ALANINE AMINOTRANSFERASE 20 U/L (21-72); ALBUMIN 2.1 g/dL (3.5-5.0); ALKALINE PHOSPHATASE 68 U/L (38-126); ANION GAP 9 (5-19); ASPARTATE AMINO TRANSFERASE 12 U/L (17-59); BILIRUBIN,DIRECT 0.2 mg/dL (0.0-0.4); BILIRUBIN,TOTAL 0.5 mg/dL (0.2-1.3); BLOOD UREA NITROGEN 17 mg/dL (7-20); CALCIUM 8.1 mg/dL (8.4-10.2); CARBON DIOXIDE 17 mmol/L (22-30); CHLORIDE 114 mmol/L (98-107); GLUCOSE 150 mg/dL (75-110); POTASSIUM 4.2 mmol/L (3.6-5.0); SODIUM 139.6 mmol/L (137-145); TOTAL PROTEIN 4.5 g/dL (6.3-8.2)
[2018-07-22] MEDS: METHYLPREDNISOLONE INJ 125 MG/2 ML SDV IV SCH ×3 (06:19→21:33)
[2018-07-22] MEDS: OXYCODONE HCL SR 10 MG TABLET PO SCH ×3 (06:21→21:33)
[2018-07-22] MEDS: LANSOPRAZOLE 30 MG TAB.RAP.DR PO SCH (06:22)
[2018-07-22] MEDS: BUPROPION HCL 100 MG TABLET PO SCH ×3 (06:23→21:33)
[2018-07-22] MEDS: NORMAL SALINE 1000 ML 1,000 ML IV PRN ×3 (06:28→15:05)
[2018-07-22] MEDS ORDERED: MAGNESIUM SULFATE/D5W 1 GM/100 ML RTUPB IV ONE (08:36)
[2018-07-22] MEDS ORDERED: (PENDING PHARMACY ID) (Bupropion Hcl [Wellbutrin Xl] 300 MG) PO SCH (10:00)
[2018-07-22] MEDS: LACTOBACILLUS ACIDOPHILUS 250 MG TAB PO SCH ×2 (10:11→17:04)
--- NOTE | 2018-07-22 17:46 | PROGRESS NOTE E ---
Progress Note NAME: AMELIA BOB : 1950 AGE: 68Y DATE: 07/22/2018 ROOM: 309 SUBJECTIVE: The patient is lying in bed and overall appears to be doing much better in comparison to previous days. The patient has been off vasopressors now for 24 hours at this point. The patient's urine output has waxed and waned, but overall improving. The patient's heart rate as well as has been controlled. The patient's blood pressures have been in acceptable range even with anti-dysrhythmics being given. The patient's oxygen saturation remains 100% on room air. He is not tachypneic. No evidence of iron overload. The patient does not voice any other concerns at this time. REVIEW OF SYSTEMS: The rest of review of systems is negative. MEDICATIONS: Medications have been reviewed. OBJECTIVE: GENERAL: The patient is a 68-year-old male who is awake, alert, and oriented to person, time, place, situation. He is verbal, conversational. He does not appear to be in any acute distress. VITAL SIGNS: Temperature is 97.3, pulse 82, respirations 17, blood pressure is 115/73, oxygen saturation is 100% on room air. SKIN: Warm and dry. No rash. He is not diaphoretic. HEENT: Pupils equal, round and reactive to light and accommodation. Conjunctivae are pink. No evidence of JVP. CARDIOVASCULAR: Heart is irregularly irregular. There is no rub. CHEST: Clear, symmetrical, unlabored. ABDOMEN: Soft, nontender, nondistended, obese. EXTREMITIES: No clubbing or cyanosis. The patient does have some trace lower extremity edema, which is new in comparison to yesterday. PSYCHIATRIC: Appropriate affect, pleasant mood. DIAGNOSTICS: Lab values are as follows - Hematology obtained on 07/22/2018; WBC is 4.3, hemoglobin is 12.4, hematocrit is 35.6, platelet count is 168,000. Chemistry obtained on 07/22/2018; sodium is 139, potassium is 4.2, chloride is 114, carbon dioxide is 17, BUN 17, creatinine is 1.1 glucose 150, calcium is 8.1, magnesium is 1.5, bilirubin 0.5, AST 12, ALT 20, alk-phos 68, total protein 6.4, albumin 2.0. IMPRESSION AND PLAN: 1. HYPOVOLEMIC SHOCK. The patient overall is 8 liters positive and has no evidence of pulmonary edema. He has now finally developed some lower extremity trace edema. We will begin to decrease fluids the patient is maintained. An acceptable MAP overnight and appears to be markedly improved. Will follow. 2. DIARRHEA. This is completely resolved. The patient denied any foul smelling diarrhea. Continue probiotic therapy and discontinue Flagyl, do not feel that this is an infectious etiology. 3. CHRONIC ATRIAL FIBRILLATION WITH RAPID VENTRICULAR RESPONSE. This was due to compensatory tachycardia from the patient's improved blood pressure. Overall is improved since the patient has been off of vasopressors and he is able to tolerate his oral Cardizem. 4. OPIATE DEPENDENCY CONTINUOUS. Will continue current regimen. 5. HYPERTENSION. Blood pressure is in acceptable range. 6. METABOLIC ACIDOSIS. This was due to volume loss. The patient's CO2 is acceptable at this point. Will monitor. 7. HYPOMAGNESEMIA. This is due to significant volume replacement. Will actually replete this today. 8. CHRONIC ANTICOAGULATION. The patient was hypercoagulable on admission and did receive vitamin K. The patient's INR is now near therapeutic. Will resume the patient's Coumadin and follow. 9. HYPERTENSION. Will continue to hold antihypertensive medications at this point. CODE STATUS: The patient is a full code. DISPOSITION: Depending on the patient's symptomatology and diagnostic findings will reevaluate as needed. The patient most likely can be downgraded to an [facility] bed this afternoon. TIME SPENT: On this follow up, including assessment and plan, physical examination, patient education, review of record is 35 minutes. DICTATING PHYSICIAN: EDUARD SHORT NP [id number] PHY#: [id number] ID: [id number] JOB#: [id number] ACCT: [id number] cc: > INGRISD
[2018-07-22] MEDS ORDERED: WARFARIN SODIUM 5 MG TABLET PO SCH (22:00)
[2018-07-22] MEDS ORDERED: (PENDING PHARMACY ID) (Warfarin Sodium 5 MG) PO SCH (22:00)
[2018-07-23] MEDS: DILTIAZEM HCL 30 MG TABLET PO SCH ×3 (00:04→11:28)
[2018-07-23] MEDS: METHYLPREDNISOLONE INJ 125 MG/2 ML SDV IV SCH (05:23)
[2018-07-23] MEDS: OXYCODONE HCL SR 10 MG TABLET PO SCH ×2 (05:24→13:53)
[2018-07-23] MEDS: BUPROPION HCL 100 MG TABLET PO SCH (05:24)
[2018-07-23] MEDS: LANSOPRAZOLE 30 MG TAB.RAP.DR PO SCH (05:24)
[2018-07-23] MEDS: NORMAL SALINE 1000 ML 1,000 ML IV PRN (05:25)
[2018-07-23 06:25] LABS: ALANINE AMINOTRANSFERASE 24 U/L (21-72); ALBUMIN 2.4 g/dL (3.5-5.0); ALKALINE PHOSPHATASE 65 U/L (38-126); ANION GAP 10 (5-19); ASPARTATE AMINO TRANSFERASE 14 U/L (17-59); BILIRUBIN,DIRECT 0.3 mg/dL (0.0-0.4); BILIRUBIN,TOTAL 0.7 mg/dL (0.2-1.3); BLOOD UREA NITROGEN 15 mg/dL (7-20); CALCIUM 8.9 mg/dL (8.4-10.2); CARBON DIOXIDE 19 mmol/L (22-30); CHLORIDE 112 mmol/L (98-107); GLUCOSE 115 mg/dL (75-110); POTASSIUM 4.2 mmol/L (3.6-5.0)
[2018-07-23] MEDS: LACTOBACILLUS ACIDOPHILUS 250 MG TAB PO SCH (09:38)
[2018-07-23 12:15] VITALS: BP 118/67
[2018-07-23] MEDS ORDERED: METOPROLOL SUCCINATE 50 MG TAB.SR.24H PO SCH (12:15)
[2018-07-23] MEDS ORDERED: DILTIAZEM HCL 120 MG CAP.SR.24H PO SCH (18:00)
--- NOTE | 2018-07-24 06:01 | OPERATIVE REPORT E ---
Operative Report NAME: AMELIA BOB : 1950 AGE: 68Y DATE OF SURGERY: 07/21/2018 ROOM: 309 PREOPERATIVE DIAGNOSIS: The patient intubated and needed arterial line. POSTOPERATIVE DIAGNOSIS: The patient intubated and needed arterial line. OPERATION: Attempted placement of arterial line in both radial arteries in both wrists. SURGEON: RACHAEL RUFFIN M.D. ANESTHESIA: Local. DESCRIPTION OF PROCEDURE: The patient was kept supine in bed and the right wrist prepped and draped in the usual sterile fashion. Local anesthesia infiltrated over the faint pulse of the right radial artery. The radial artery was attempted to be punctured. Unfortunately, I was unable to thread the catheter through the artery. There then developed a hematoma at this area and pressure was applied. Next, an attempt was done to get the arterial line in the left radial artery. The left wrist was then prepped and draped in the usual sterile fashion. Local anesthesia infiltrated over the faintly palpable left radial artery. An attempt was done to puncture the artery several times, but unable to do so. Also, it was punctured, but unable to thread the catheter. Pressure was then also applied for hemostasis. At this point, after taking almost [address] minutes of [address] to place a catheter, I felt it not safe to go further and try to place an arterial line along both arms. The procedure was then terminated. DICTATING PHYSICIAN: RACHAEL RUFFIN M.D. [id number] PHY#: [id number] ID: [id number] JOB#: [id number] ACCT: [id number] cc:RACHAEL RUFFIN M.D. >
[2018-07-24] MEDS ORDERED: (PENDING PHARMACY ID) (Warfarin Sodium 1 MG) PO SCH (08:06)
--- NOTE | 2018-07-24 09:54 | XCELERA REPORT ---
[address] [address] Transthoracic Echocardiogram Report Name: AMELIA BOB Age: 68 yrs Gender: Male : 1950 Patient Status: Inpatient Patient Location: ICU^610^A Study Date: 07/21/2018 10:57 AM Height: 69 in Weight: 301 lb BSA: 2.5 m2 Procedure: A complete two-dimensional transthoracic echocardiogram was performed (2D, M-mode, spectral and color flow Doppler). The study was technically difficult with many images being suboptimal in quality. Reason For Study: Afib, dyspnea Ordering Physician: EDUARD SHORT Performed By: Uriel Adams Interpretation Summary LV diastolic function could not be adequately assessed due to atrial fibrilation. The left ventricular ejection fraction is preserved. The left ventricle is grossly normal size. Wall motion cannot be accurately commented on, but no definite regional wall motion abnormalities noted. There is mild concentric left ventricular hypertrophy. The right ventricular systolic function is mildly reduced. The right ventricle is moderately dilated. The right ventricle appears to be hypertrophied The right atrium is severely dilated. The left atrium is severely dilated. There is a mild amount of mitral regurgitation There is no mitral valve stenosis. There is no aortic valve stenosis No aortic regurgitation is present. There is a trace to mild amount of tricuspid regurgitation There is mild to moderate pulmonary hypertension by echo Right ventricular systolic pressure is estimated to be elevated at 40-50mmHg. The aortic root is not well visualized but is probably normal size. There is no pericardial effusion. A FIB noted MMode/2D Measurements & Calculations RVDd: 4.1 cm LVIDd: 4.2 cm FS: 38.5 % Ao root diam: 3.6 cm IVSd: 0.95 cm LVIDs: 2.6 cm EDV(Teich): 80.5 ml Ao root area: 10.2 cm2 LVPWd: 1.00 cm ESV(Teich): 24.9 ml LA dimension: 5.9 cm EF(Teich): 69.1 % Doppler Measurements & Calculations MV E max yomi: MV P1/2t max yomi: Ao V2 max: LV V1 max P.2 cm/sec 94.4 cm/sec 108.6 cm/sec 4.2 mmHg MV P1/2t: 49.1 msec Ao max P.7 mmHg LV V1 max: MVA(P1/2t): 4.5 cm2 102.7 cm/sec MV dec slope: 562.5 cm/sec2 MV dec time: 0.18 sec PA V2 max: TR max yomi: MV P1/2t-pr_phl: 85.3 cm/sec 284.0 cm/sec 49.1 msec PA max PG: TR max P.3 mmHg 2.9 mmHg Left Ventricle The left ventricle is grossly normal size. There is mild concentric left ventricular hypertrophy. The left ventricular ejection fraction is preserved. LV diastolic function could not be adequately assessed due to atrial fibrilation. Wall motion cannot be accurately commented on, but no definite regional wall motion abnormalities noted. Right Ventricle The right ventricle is moderately dilated. The right ventricle appears to be hypertrophied. The right ventricular systolic function is mildly reduced. Atria The right atrium is severely dilated. The left atrium is severely dilated. Interarterial septum not well visualized and not well dopplered. Cannot comment on ASD/PFO presence. Mitral Valve The mitral valve is grossly normal. There is no mitral valve stenosis. There is a mild amount of mitral regurgitation. Aortic Valve The aortic valve is not well visualized secondary to technical limitations. There is no aortic valve stenosis. No aortic regurgitation is present. Tricuspid Valve The tricuspid valve is not well visualized secondary to technical limitations. There is no tricuspid stenosis. There is a trace to mild amount of tricuspid regurgitation. There is mild to moderate pulmonary hypertension by echo. Right ventricular systolic pressure is estimated to be elevated at 40-50mmHg. Pulmonic Valve The pulmonic valve is not well visualized. Great Vessels The aortic root is not well visualized but is probably normal size. The inferior vena cava appeared normal and decreased < 50% with respiration (RAP 10-15 mmHg). Effusions There is no pericardial effusion. Incidental Findings A FIB noted. : EDUARD SHORT > Duglas Rincon
--- NOTE | 2018-07-24 11:06 | DISCHARGE SUMMARY E ---
Discharge Summary NAME: AMELIA BOB : 1950 AGE: 68Y ADMITTED: 07/19/2018 DISCHARGED: 07/23/2018 CODE STATUS: FULL CODE. PRIMARY CARE PROVIDER: Jannie Sung PA-C. DISCHARGE DIAGNOSES: 1. Hypovolemic shock secondary to diarrhea which is resolved. 2. Chronic atrial fibrillation. 3. Atrial fibrillation with rapid ventricular response, now rate controlled. 4. Opiate dependency, continuous. 5. Hypertension. 6. Metabolic acidosis, secondary to number 1, which is resolved. 7. Hypomagnesemia. 8. Chronic anticoagulation due to atrial fibrillation with Warfarin. 9. Hypertension. 10. Coagulopathy which resolved. DISCHARGE MEDICATIONS: Include: 1. Coumadin 5 mg p.o. q. hour of sleep. 2. Toprol XL 50 mg p.o. daily 30 tablets, 0 refills. 3. Cardizem CD 120 mg p.o. q. hour of sleep. 4. Testosterone 200 mg IM every 2 weeks. 5. Protonix 40 mg p.o. daily. 6. OxyContin 30 mg p.o. q. 8 hours. 7. Dilaudid 4 mg p.o. q.i.d. p.r.n. 8. Neurontin 300 mg p.o. q. hour of sleep. 9. Wellbutrin XL 300 mg p.o. daily. DIET: Heart healthy as tolerated. ACTIVITY: As tolerated. CONDITION: Good. DIAGNOSTICS: Lab values are as follows: Venous blood gas obtained on 07/21/2018: pH of 7.29, PCO2 is 40.3, bicarb is 19.1. Hematology obtained on 07/22/2018; WBC is 4.3, hemoglobin is 12.4, hematocrit is 35.6, platelet count is 168,000. Coagulation obtained on 07/22/2018: PT is 23.6, INR is 1.99. Chemistry obtained on 07/23/2018; sodium is 141, potassium is 4.2, chloride is 112, carbon dioxide 19, BUN 15, creatinine is 0.89, glucose 115, lactic acid is 1, calcium is 8.9, magnesium is 1.8, bilirubin 0.7, AST 14, ALT 24, alk-phos 65, CK is 20, troponin is less than 0.012, total protein is 5.4, albumin 2.4, B12 is 337, random cortisol is 22.8, a.m. cortisol is 19.2, p.m. cortisol is 11.7. Serology obtained on 07/22/2018: Ciguatoxin is negative. Urinalysis obtained on 07/19/2018: Color: Yellow. Appearance: Slightly cloudy. PH: 5.0. Specific gravity: 1.015 Protein: Negative. Glucose: Negative. Ketones: Negative. Occult blood: Negative. Nitrite: Negative. Bilirubin: Negative. Urobilinogen: Negative. Leukocyte esterase: Negative. WBC: 5. RBC: 1. CAT: 38. Bacteria: Trace. Epithelial squamous cells: 2. Mucous: Occasional. Ascorbic acid: Negative. Stool for WBCs obtained on 07/22/[address] of the abdomen and pelvis obtained on 07/19/2018: Reveals a distended gallbladder without evidence of stones. No other significant finding A chest x-ray obtained on 07/21/2018: Reveals no acute radiographic finding of the chest. Microbiology obtained on 07/22/2018: Reveals a negative stool study. EKG obtained on 07/21/2018: Reveals atrial fibrillation. PHYSICAL EXAMINATION: GENERAL: The patient is a well-developed, well-nourished 68-year-old male who is awake, alert, and oriented to person, place, time, and situation. He is verbal, conversational. He does not appear to be in any acute distress. VITAL SIGNS: Temperature is 97.4, pulse 70, respirations 20, blood pressure is 118/67, oxygen saturation is 100% on room air. SKIN: Warm and dry. No rash. He is not diaphoretic. HEENT: Pupils equal, round and reactive to light and accommodation. Conjunctivae are pink. There is no evidence of JVP. CARDIOVASCULAR: Heart is irregularly irregular. There is no murmur or rub. CHEST: Clear, symmetrical, unlabored. ABDOMEN: Soft, nontender, nondistended. BACK: No CVA tenderness. EXTREMITIES: No clubbing or cyanosis. PSYCHIATRIC: Appropriate affect, pleasant mood. HISTORY OF PRESENT ILLNESS: The patient is a 68-year-old male with a past medical history of atrial fibrillation with chronic anticoagulation on Coumadin. The patient presents to the Emergency Department with a chief complaint of abnormal labs. The patient reported that he had diarrhea for 2 weeks. He presented to his primary care provider and labs were done. At that time the patient was found to have abnormal labs and was sent to the Emergency Department for evaluation. Upon presentation to the emergency department the patient had an INR of 8.76 and a creatinine of 1.48. The patient states that his diarrhea started 2 weeks ago. He denies any known trigger symptoms. Denies any suspect meals, no fevers, no nausea or vomiting. In spite of this, he went on a family vacation and returned completely exhausted. The patient stated his appetite remained the same though. No shortness of breath, dizziness, chest pain. The patient described himself as feeling dehydrated. Upon presentation to the Emergency Department the patient was found to be profoundly hypotensive with maps in the 40s. The patient received a total of 2 liters saline bolus and this was before being referred to the hospital for admission and management. HOSPITAL COURSE: The patient was admitted to the Intensive Care Unit. The patient was aggressively hydrated for a total of 7 liters positive. The patient's urine output was slow to make. A Valadez was placed to ensure accurate I and O. The patient received multiple fluid boluses throughout his visit and actually required vasopressors for a period of time. The patient became significantly tachycardiac and his Cardizem was resumed for rate control. The patient was able to tolerate this from a blood pressure standpoint and came off of vasopressors. The patient is currently rate controlled. His INR is in a much better range. The patient has been resumed on his previous dose of Coumadin except for it to 5 mg daily and to follow up with Jannie Sung in 3 days for repeat INR. The patient is in agreement with this plan. Additionally, given the patient's profound hypotension, for now I have told him to hold his ARB until follow-up with his primary care provider. Additionally, the patient's metoprolol dose has been cut in half as the patient's rate is well controlled with oral Cardizem as well as the lower dose of metoprolol. The patient is quite eager for discharge and in agreement with this plan. DISCHARGE PLANNIN. The patient is advised to follow up with his primary care provider within 3 to 5 days for hospital follow-up and to have a repeat INR in 3 days. Time spent on this discharge including assessment and plan, physical examination, patient education, review of record is 25minutes. DICTATING PHYSICIAN: EDUARD SHORT NP [id number] PHY#: [id number] ID: [id number] JOB#: [id number] ACCT: [id number] cc:Kendal BARROW NP >
[2018-07-24] MEDS ORDERED: (PENDING PHARMACY ID) (Warfarin Sodium [Coumadin] 6 MG) PO SCH (22:00)
[2018-07-24] MEDS ORDERED: WARFARIN SODIUM 1 MG TABLET PO SCH (22:00)
== END 2018-07-23 14:05 | disposition home or self-care (01) | DRG 872 ==
LOC: ER 12:27 → EH 16:51 → ICU 20:30 → 3N 07-22 13:55
PROVIDERS: ADMIT Emergency Medicine; ATTEND Emergency Medicine
PROC: 0XJ Anatomical Regions, Upper Extremities, Inspection (ICD-10-PCS; principal; 2018-07-21)
PROC: 0XJ Anatomical Regions, Upper Extremities, Inspection (ICD-10-PCS; 2018-07-21)
DX: R57.1 Hypovolemic shock (principal); F11.20 Opioid dependence, uncomplicated; E87.2 Acidosis; N17.9 Acute kidney failure, unspecified; R19.7 Diarrhea, unspecified; I95.9 Hypotension, unspecified; I48.2 Chronic atrial fibrillation; I10 Essential (primary) hypertension; E83.42 Hypomagnesemia; K82.8 Other specified diseases of gallbladder; J44.9 Chronic obstructive pulmonary disease, unspecified; E03.9 Hypothyroidism, unspecified; Z79.01 Long term (current) use of anticoagulants; Z79.899 Other long term (current) drug therapy; Z96.643 Presence of artificial hip joint, bilateral; Z98.84 Bariatric surgery status; Z83.6 Family history of other diseases of the respiratory system
CPT/HCPCS: 36415; 71046; 74176; 80048; 80053; 81001; 82040; 82533; 82550; 82607; 82803; 83605; 83735; 84484; 85025; 85027; 85610; 87040; 87045; 87205; 87493; 89055; 93005; 93010; 93306; 96360; 96361; 99285; J2930; J3430; J3475; J3490; J7030; J7060; P9047

== ENCOUNTER 2018-09-22 08:46 | Inpatient (IN) | payer OTHER, MEDICARE ==
[2018-09-22] MEDS ORDERED: NORMAL SALINE 1000 ML 1,000 ML IV ONE ×2 (09:04→13:33)
[2018-09-22 09:15] LABS: ABSOLUTE EOSINOPHILS # (AUTO) 0.1 10^3/uL (0.0-0.6); ABSOLUTE LYMPHOCYTES (AUTO) 1.7 10^3/uL (0.5-4.7); ABSOLUTE MONOCYTES (AUTO) 0.4 10^3/uL (0.1-1.4); ABSOLUTE NEUT (AUTO) 4.2 10^3/uL (1.7-8.2); BASOPHILS % (AUTO) 0.6 % (0-2); EOSINOPHILS % (AUTO) 1.2 % (0-6); HEMOGLOBIN 14.1 g/dL (13.5-17.0); LYMPHOCYTES % (AUTO) 26.6 % (13-45); MEAN CORPUSCULAR HEMOGLOBIN 30.9 pg (27.0-33.4); MEAN CORPUSCULAR HGB CONC 32.8 g/dL (32.0-36.0); MEAN CORPUSCULAR VOLUME 94 fl (80-97); MONOCYTES % (AUTO) 6.8 % (3-13); PLATELET COUNT 302 10^3/uL (150-450); RED BLOOD COUNT 4.56 10^6/uL (4.35-5.55); RED CELL DISTRIBUTION WIDTH 14.6 % (11.5-14.0); SEGMENTED NEUTROPHILS % (AUTO) 64.8 % (42-78); TOTAL CELLS COUNTED % (AUTO) 100 %; WHITE BLOOD COUNT 6.5 10^3/uL (4.0-10.5)
[2018-09-22 09:21] LABS: INTERNATIONAL RATION (INR) 1.12
--- NOTE | 2018-09-22 09:46 | ER Document Report ---
ED General - General Chief Complaint: General Weakness Stated Complaint: WEAKNESS Time Seen by Provider: 09/22/18 09:26 Notes: Patient is here to be evaluated for weakness. He is scheduled for an upper and lower endoscopies this morning and went through the preparation last night. He was not feeling weak prior to that. He has been given MiraLAX and Gatorade and Dulcolax p.o. and got good results of watery diarrhea through the night. This morning, he was attempting to walk with his walker and his family member was unable to keep him from slipping from the walker to the floor, landing on the front of his left knee. He was unable to get up off the floor and EMS was called to bring him here. He has a history of atrial fibrillation. His blood pressure by EMS was 108/62. Other vital signs are all normal. Patient says is a slight bit nauseated but not vomiting. Has not had any blood in his stools. Has a history of ulcers. Has had both knees replaced in the past. Subsequent to the replacement, he tore ligaments in the left knee but never had any specific care for that problem. Patient denies any chest pains or shortness of breath. Denies any recent illness. Denies fever. TRAVEL OUTSIDE OF THE [place] IN LAST 30 DAYS: No - Related Data Allergies/Adverse Reactions: No Known Allergies Allergy (Verified 09/21/18 10:36) Past Medical History - Social History Smoking Status: Unknown if Ever Smoked Family History: Reviewed & Not Pertinent, COPD Patient has suicidal ideation: No Patient has homicidal ideation: No - Past Medical History Cardiac Medical History: Reports: Hx Atrial Fibrillation, Hx Coronary Artery Disease - A-FIB Denies: Hx Heart Attack, Hx Hypertension Pulmonary Medical History: Reports: Hx COPD, Hx Pneumonia Denies: Hx Asthma, Hx Bronchitis Neurological Medical History: Denies: Hx Cerebrovascular Accident, Hx Seizures Endocrine Medical History: Reports: Hx Hypothyroidism Musculoskeletal Medical History: Reports Hx Arthritis - DDD Past Surgical History: Reports: Hx Gastric Bypass Surgery - 1993, Hx Orthopedic Surgery - Herniated Disc Repair, Bilateral Knee Replacement - Immunizations Hx Diphtheria, Pertussis, Tetanus Vaccination: Yes Hx Pneumococcal Vaccination: 07/20/09 Review of Systems - Review of Systems Notes: REVIEW OF SYSTEMS: CONSTITUTIONAL : Denies fever. Generalized weakness. EENT: Denies eye, ear, nose or mouth or throat pain or other symptoms. CARDIOVASCULAR: Denies chest pain. RESPIRATORY: Denies cough, chest congestion, or shortness of breath. GASTROINTESTINAL: Denies abdominal pain. Nauseated but not vomiting. Has intermittent chronic diarrhea, but none for the past few weeks. Last year, patient ended up in this hospital in ICU due to his diarrhea. GENITOURINARY: Denies difficulty or painful urinating, urinary frequency, blood in urine. MUSCULOSKELETAL: Denies back or neck pain. Denies joint pain or swelling. SKIN: Denies rash or skin lesions. NEUROLOGICAL: Denies LOC or altered mental status. Denies headache. Denies sensory loss or motor deficits. No lateralizing neurologic deficits. ALL OTHER SYSTEMS REVIEWED AND NEGATIVE. Physical Exam - Vital signs Vitals: Resp 12 09/22/18 08:51 Interpretation: Hypotensive Notes: PHYSICAL EXAMINATION: GENERAL: Well-appearing, in no acute distress. Systolic blood pressure in the 80s. HEAD: Atraumatic, normocephalic. EYES: Pupils equal round and reactive to light, extraocular movements intact. ENT: oropharynx clear without exudates. Moist mucous membranes. NECK: Normal range of motion, supple. LUNGS: Breath sounds clear and equal bilaterally. HEART: Irregularly irregular rate and rhythm without murmurs. ABDOMEN: Soft, nontender. No guarding or rebound. No masses. BACK: No tenderness throughout entire back. EXTREMITIES: Normal range of motion without pain. Tenderness to touch the anterior left knee. Scar from TKR with a faint bruise distally. Left patella is low riding, [place]. says this is the way he has been for many years. The findings described on the patient's x-ray of the knee are likely chronic and nothing acute. Patient's knee is not significantly swollen and no effusion present and nothing that would indicate a recent serious injury to the knee. NEUROLOGICAL: Normal speech, gait not tested. Normal sensory, motor, and reflex exams. Awake, alert, and oriented x3. Cranial nerves normal. PSYCH: Normal mood, normal affect. SKIN: Warm, dry, no rashes. Course - Re-evaluation Re-evalutation: 09/22/18 20:23 Patient's urine looks like an infection, although the patient is not febrile, has a normal white cell count, and nothing that would suggest an infectious process. Patient's blood pressure began to decline. At first, I thought it might have simply been part of a reaction of patient's body to fluid loss from the pr eparation for his endoscopy procedures. He was given a liter of saline and then a second saline, but the blood pressure continued to stay low and even got as low as a systolic of 75. At that time, a drip of Levophed was started at 8-10 mics per minute. His blood pressure quickly fabrizio to about 120 systolic. Hospitalist was called to admit the patient. - Vital Signs Vital signs: Temp Pulse Resp BP Pulse Ox 98.3 F 17 130/85 H 97 09/22/18 08:55 09/22/18 19:37 09/22/18 19:37 09/22/18 19:36 - Laboratory Result Diagrams: 09/22/18 09:00 09/22/18 10:59 Laboratory results interpreted by me: 09/22/18 09/22/18 09/22/18 09:00 10:45 10:46 RDW 14.6 H Sodium Lactic Acid 3.7 H Total Protein Albumin Urine Protein 30 H Urine Nitrite POSITIVE H Ur Leukocyte Esterase MODERATE H 09/22/18 10:59 RDW Sodium 136.0 L Lactic Acid Total Protein 4.8 L Albumin 2.3 L Urine Protein Urine Nitrite Ur Leukocyte Esterase Critical Care Note - Critical Care Note Total time excluding time spent on procedures (mins): 40 Discharge - Discharge Clinical Impression: Hypotension, UTI (urinary tract infection) Condition: Serious Disposition: ADMITTED INPATIENT Admitting Provider: Hospitalist Unit Admitted: ICU
--- NOTE | 2018-09-22 10:53 | RADIOLOGY REPORT (SQ) ---
EXAM DESCRIPTION: KNEE LEFT 4 VIEW COMPLETED DATE/TIME: 09/22/2018 10:05 am REASON FOR STUDY: TKR. Fell on knee this a.m. COMPARISON: None. NUMBER OF VIEWS: Four views. TECHNIQUE: AP, lateral, and both oblique radiographic images acquired of the left knee. LIMITATIONS: None. FINDINGS: MINERALIZATION: Osteopenia. BONES: Intact knee arthroplasty. Patella [place] may be artifact of positioning although cannot exclude quadriceps tendon tear. JOINT: No effusion. SOFT TISSUES: Prepatellar swelling. No foreign body. OTHER: No other significant finding. IMPRESSION: Potential quadriceps tendon injury. Correlate clinically. TECHNICAL DOCUMENTATION: JOB ID: [id number] [employer]- All Rights Reserved Reading location - IP/workstation name: [email or web address]
--- NOTE | 2018-09-22 10:56 | RADIOLOGY REPORT (SQ) ---
EXAM DESCRIPTION: CHEST SINGLE VIEW COMPLETED DATE/TIME: 09/22/2018 10:06 am REASON FOR STUDY: Weakness and hypotension. COMPARISON: 07/21/2018 EXAM PARAMETERS: NUMBER OF VIEWS: One view. TECHNIQUE: Single frontal radiographic view of the chest acquired. RADIATION DOSE: NA LIMITATIONS: None. FINDINGS: LUNGS AND PLEURA: No opacities, masses or pneumothorax. No pleural effusion. MEDIASTINUM AND HILAR STRUCTURES: No masses. Contour normal. HEART AND VASCULAR STRUCTURES: Cardiomegaly. BONES: No acute findings. HARDWARE: None in the chest. OTHER: No other significant finding. IMPRESSION: Cardiomegaly without acute abnormality of the lungs. No focal airspace opacity. TECHNICAL DOCUMENTATION: JOB ID: [id number]- All Rights Reserved Reading location - IP/workstation name: [email or web address]
[2018-09-22 11:05] LABS: APPEARANCE,URINE CLOUDY; BILIRUBIN,URINE NEGATIVE (NEGATIVE); COLOR,URINE AMBER; GLUCOSE, URINE NEGATIVE (NEGATIVE); KETONES,URINE NEGATIVE (NEGATIVE); LEUKOCYTE ESTERASE,URINE MODERATE (NEGATIVE); NITRITE,URINE POSITIVE (NEGATIVE); PROTEIN,URINE 30 mg/dL (NEGATIVE); UROBILINOGEN,URINE NEGATIVE mg/dL (<2.0)
[2018-09-22] MEDS ORDERED: CEFTRIAXONE INJ 1000 MG VIAL IV ONE (11:20)
[2018-09-22 11:25] LABS: ALANINE AMINOTRANSFERASE 42 U/L (21-72); ALBUMIN 2.3 g/dL (3.5-5.0); ALKALINE PHOSPHATASE 95 U/L (38-126); ANION GAP 10 (5-19); ASPARTATE AMINO TRANSFERASE 32 U/L (17-59); BILIRUBIN,DIRECT 0.4 mg/dL (0.0-0.4); BILIRUBIN,TOTAL 1.2 mg/dL (0.2-1.3); BLOOD UREA NITROGEN 18 mg/dL (7-20); CALCIUM 8.4 mg/dL (8.4-10.2); CARBON DIOXIDE 25 mmol/L (22-30); CHLORIDE 101 mmol/L (98-107); GLUCOSE 87 mg/dL (75-110); POTASSIUM 4.1 mmol/L (3.6-5.0); TOTAL PROTEIN 4.8 g/dL (6.3-8.2)
[2018-09-22 11:43] LABS: CREATINE KINASE MB 1.15 ng/mL (<4.55); TROPONIN I < 0.012 ng/mL
[2018-09-22] MEDS ORDERED: NOREPINEPHRINE BITARTRATE INJ/PF 4 MG/4 ML SDV IV ONE (12:57)
--- NOTE | 2018-09-22 13:34 | RADIOLOGY REPORT (SQ) ---
EXAM DESCRIPTION: CHEST SINGLE VIEW COMPLETED DATE/TIME: 09/22/2018 1:08 pm REASON FOR STUDY: Chest pain COMPARISON: Chest films 07/14/2017, 07/21/2018, 07/23/2019 EXAM PARAMETERS: NUMBER OF VIEWS: One view. TECHNIQUE: Single frontal radiographic view of the chest acquired. RADIATION DOSE: NA LIMITATIONS: [employer] portable film FINDINGS: LUNGS AND PLEURA: No opacities, masses or pneumothorax. No pleural effusion. MEDIASTINUM AND HILAR STRUCTURES: No masses. Contour normal. HEART AND VASCULAR STRUCTURES: Borderline cardiomegaly, stable BONES: Old lower cervical fusion hardware. Advanced arthritis both shoulders HARDWARE: None in the chest. OTHER: No other significant finding. IMPRESSION: No acute findings TECHNICAL DOCUMENTATION: JOB ID: [id number] [employer]- All Rights Reserved Reading location - IP/workstation name: [email or web address]
[2018-09-22] MEDS: DEXTROSE 5%-WATER 250 ML with NOREPINEPHRINE BITARTRATE 4 MG IV PRN ×4 (13:38→19:41)
[2018-09-22] MEDS ORDERED: ACETAMINOPHEN 325 MG TABLET PO PRN (15:40)
--- NOTE | 2018-09-22 15:40 | PDOC H&P ---
History of Present Illness Admission Date/PCP: BRAN CERNA PA-C History of Present Illness: AMELIA BOB is a 68 year old male with a PMH of chronic atrial fibrillation on Eliquis, COPD not on home O2, history of hypertension and hypothyroidism (now off medications for both), HALLIE not compliant on CPAP and opite dependence for chronic low back and joint pains from osteoarthritis who initially presented with weakness. Patient has issues with chronic diarrhea and is following with Dr. Nixon. He was scheduled for an EGD and colonoscopy today and had bowel prep yesterday. says he took 4 dulcolax tablets yesterday and 2 bottles of gatorade with Miralax solution and he started having multiple episodes of watery, nonbloody stools last night and this morning and he developed generalized weakness. They went to the endoscopy center but patient slumped to the ground from his walker due to the weakness. He denies headache, sensory of focal weakness. He did have some mild dizziness. He is also on opiates for his chronic pain and took these last night and this morning. In the ER, he was noted to be hypotensive with the lowest BP at 69/57. He was given 2L of fluid bolus which slightly improved his blood pressures but he eventually required pressor. He was started on levophed at 8 mcg but this was increased to 10 mcg later. Upon encounter, patient is comfortable. He denies chest pain or SOB. Denies fever or chills. He denies cough or colds, nausea or vomiting. blood pressure has improved to 100/50s on levophed. He will be given a 3rd liter of fluid bolus. He has been off Eliquis for 2 days for his supposed EGD and colonoscopy today. Past Medical History Cardiac Medical History: Reports: Atrial Fibrillation, Coronary Artery Disease - A-FIB Denies: Myocardial Infarction, Hypertension Pulmonary Medical History: Reports: Chronic Obstructive Pulmonary Disease (COPD), Pneumonia Denies: Asthma, Bronchitis Neurological Medical History: Denies: Seizures Endocrine Medical History: Reports: Hypothyroidism Musculoskeltal Medical History: Reports: Arthritis - DDD Hematology: Denies: Anemia Past Surgical History Past Surgical History: Reports: Gastric Bypass Surgery - 1993, Orthopedic Surgery - Herniated Disc Repair, Bilateral Knee Replacement Social History Smoking Status: Unknown if Ever Smoked Frequency of Alcohol Use: None Hx Recreational Drug Use: No Hx Prescription Drug Abuse: No Family History Family History: Reviewed & Not Pertinent, COPD Parental Family History Reviewed: Yes Children Family History Reviewed: No Sibling(s) Family History Reviewed.: No Medication/Allergy Home Medications: Gabapentin [Neurontin 300 mg Capsule] 300 mg PO QHS 07/19/18 Bupropion HCl [Wellbutrin Xl] 300 mg PO DAILY 07/21/18 Pantoprazole Sodium [Protonix] 40 mg PO DAILY 07/21/18 Testosterone Cypionate 200 mg IM [id number] 07/21/18 Diltiazem HCl [Cartia Xt] 120 mg PO QHS #0 07/23/18 Metoprolol Succinate [Toprol Xl 50 mg Tab.sr] 50 mg PO DAILY #30 tab.sr.24h 07/23/18 Apixaban [Eliquis 5 mg Tablet] 5 mg PO DAILY 09/21/18 Oxycodone HCl [Oxycodone HCl 10 MG Tablet] 10 mg PO PRN PRN 09/21/18 Oxycodone Myristate [Xtampza ER] 27 mg PO Q12 09/21/18 Allergies/Adverse Reactions: No Known Allergies Allergy (Verified 09/21/18 10:36) Review of Systems All systems: reviewed and no additional remarkable complaints except as stated - as mentioned in HPI Physical Exam Vital Signs: Temp Pulse Resp BP Pulse Ox 98.3 F 17 99/59 L 86 L 09/22/18 08:55 09/22/18 12:46 09/22/18 12:46 09/22/18 12:31 Intake & Output 09/21/18 09/22/18 09/23/18 06:59 06:59 06:59 Intake Total 1000 Balance 1000 Weight 250 lb General appearance: PRESENT: no acute distress, well-developed, well-nourished Head exam: PRESENT: atraumatic, normocephalic Eye exam: PRESENT: conjunctiva pink, EOMI, PERRLA. ABSENT: scleral icterus Ear exam: PRESENT: normal external ear exam Mouth exam: PRESENT: moist, tongue midline Neck exam: ABSENT: carotid bruit, JVD, lymphadenopathy, thyromegaly Respiratory exam: PRESENT: clear to auscultation almaz. ABSENT: rales, rhonchi, wheezes Cardiovascular exam: PRESENT: irregular rhythm. ABSENT: diastolic murmur, rubs, systolic murmur Pulses: PRESENT: normal dorsalis pedis pul GI/Abdominal exam: PRESENT: normal bowel sounds, soft. ABSENT: distended, guarding, mass, organolmegaly, rebound, tenderness Rectal exam: PRESENT: deferred Neurological exam: PRESENT: alert, awake, oriented to person, oriented to place, oriented to time, oriented to situation, CN II-XII grossly intact. ABSENT: m otor sensory deficit Results Laboratory Results: 09/22/18 09:00 09/22/18 10:59 09/22/18 09/22/18 09/22/18 09:00 09:00 10:45 WBC 6.5 RBC 4.56 Hgb 14.1 Hct 43.0 MCV 94 MCH 30.9 MCHC 32.8 RDW 14.6 H Plt Count 302 Seg Neutrophils % 64.8 Lymphocytes % 26.6 Monocytes % 6.8 Eosinophils % 1.2 Basophils % 0.6 Absolute Neutrophils 4.2 Absolute Lymphocytes 1.7 Absolute Monocytes 0.4 Absolute Eosinophils 0.1 Absolute Basophils 0.0 Sodium Cancelled Potassium Cancelled Chloride Cancelled Carbon Dioxide Cancelled Anion Gap Cancelled BUN Cancelled Creatinine Cancelled Est GFR ( Amer) Cancelled Est GFR (Non-Af Amer) Cancelled Glucose Cancelled Lactic Acid 3.7 H Calcium Cancelled Total Bilirubin Cancelled AST Cancelled ALT Cancelled Alkaline Phosphatase Cancelled Total Protein Cancelled Albumin Cancelled Urine Color Urine Appearance Urine pH Ur Specific Elizabeth Urine Protein Urine Glucose (UA) Urine Ketones Urine Blood Urine Nitrite Ur Leukocyte Esterase Urine WBC (Auto) Urine RBC (Auto) 09/22/18 09/22/18 10:46 10:59 WBC RBC Hgb Hct MCV MCH MCHC RDW Plt Count Seg Neutrophils % Lymphocytes % Monocytes % Eosinophils % Basophils % Absolute Neutrophils Absolute Lymphocytes Absolute Monocytes Absolute Eosinophils Absolute Basophils Sodium 136.0 L Potassium 4.1 Chloride 101 Carbon Dioxide 25 Anion Gap 10 BUN 18 Creatinine 1.20 Est GFR ( Amer) > 60 Est GFR (Non-Af Amer) > 60 Glucose 87 Lactic Acid Calcium 8.4 Total Bilirubin 1.2 AST 32 ALT 42 Alkaline Phosphatase 95 Total Protein 4.8 L Albumin 2.3 L Urine Color LÓPEZ Urine Appearance CLOUDY Urine pH 5.0 Ur Specific Elizabeth 1.020 Urine Protein 30 H Urine Glucose (UA) NEGATIVE Urine Ketones NEGATIVE Urine Blood NEGATIVE Urine Nitrite POSITIVE H Ur Leukocyte Esterase MODERATE H Urine WBC (Auto) 130 Urine RBC (Auto) 4 09/22/18 10:59 CK-MB (CK-2) 1.15 Troponin I < 0.012 Impressions: Knee X-Ray 09/22/18 09:29 IMPRESSION: Potential quadriceps tendon injury. Correlate clinically. Chest X-Ray 09/22/18 12:41 IMPRESSION: No acute findings Assessment & Plan - Diagnosis (1) Hypovolemic shock Is this a current diagnosis for this admission?: Yes Plan: Hypotension is more likely related to severe volume depletion from GI losses with his opiate intake contributing to the hypotension. No leukocytosis, fever or clinical signs of infection or sepsis aside from pyuria on UA. No signs or symptoms of bleeding. Hemoglobin is normal and stable. Patient is getting 3rd liter of bolus. Currently on levophed. (2) Chronic atrial fibrillation Is this a current diagnosis for this admission?: Yes Plan: Patient has been off his Eliquis for 2 days now for supposed procedures. He did ask if GI could do this inpatient. Explained this will be unlikely as we don't have GI coverage and his procedures are not considered emergent. Will update Dr. Nixon. Will keep him on heparin drip for now and possibly resume Eliquis tomorrow if there is no anticipation of any procedure soon. Hold off on cardizem and lopressor for now due to hypotension. - Time Time Spent: 30 to 50 Minutes
[2018-09-22] MEDS ORDERED: DEXTROSE 5%-WATER 250 ML with NOREPINEPHRINE BITARTRATE 4 MG IV PRN ×2 (21:33)
[2018-09-22] MEDS: HEPARIN SODIUM,PORCINE/D5W 25,000 UNIT/250 ML RTUINJ IV PRN (21:43)
[2018-09-22] MEDS: NORMAL SALINE 1000 ML 1,000 ML IV PRN (21:44)
[2018-09-22] MEDS: HEPARIN SOD (PORCINE) 5,000 UNIT/ML 1 ML SYRINGE SUBCUT SCH (22:34)
[2018-09-22] MEDS: TRAMADOL HCL 50 MG TABLET PO PRN (22:38)
--- NOTE | 2018-09-22 22:55 | EKG REPORT ---
SEVERITY:- ABNORMAL ECG - ATRIAL FIBRILLATION, V-RATE 61-96 PROBABLE INFERIOR INFARCT, AGE INDETERMINATE ABNRM R PROG, CONSIDER ASMI OR LEAD PLACEMENT LATERAL LEADS ARE ALSO INVOLVED : Confirmed by: Chely Blount MD 22-Sep-2018 22:54:33
[2018-09-23] MEDS: NORMAL SALINE 1000 ML 1,000 ML IV PRN ×4 (01:57→23:08)
[2018-09-23] MEDS ORDERED: LIDOCAINE 2% URO-JET 5 ML KIT MM ONE (02:30)
[2018-09-23] MEDS: DEXTROSE 5%-WATER 250 ML with NOREPINEPHRINE BITARTRATE 4 MG IV PRN ×2 (02:53)
[2018-09-23] MEDS: LANSOPRAZOLE 30 MG TAB.RAP.DR PO SCH (05:33)
[2018-09-23] MEDS: TRAMADOL HCL 50 MG TABLET PO PRN ×2 (08:58→21:43)
[2018-09-23] MEDS: DEXTROSE 5%-WATER 250 ML with PHENYLEPHRINE HCL 40 MG IV PRN ×4 (09:50→18:44)
[2018-09-23] MEDS: HEPARIN SOD (PORCINE) 5,000 UNIT/ML 1 ML SYRINGE SUBCUT SCH ×2 (10:03→21:43)
--- NOTE | 2018-09-23 10:18 | RADIOLOGY REPORT (SQ) ---
EXAM DESCRIPTION: CHEST SINGLE VIEW COMPLETED DATE/TIME: 09/23/2018 10:06 am REASON FOR STUDY: assess for congestion COMPARISON: AP upright chest 09/22/2018. PA and lateral chest 07/21/2018. CT of abdomen and pelvis . EXAM PARAMETERS: NUMBER OF VIEWS: One view. TECHNIQUE: Single frontal radiographic view of the chest acquired. RADIATION DOSE: NA LIMITATIONS: None. FINDINGS: LUNGS AND PLEURA: Chronic scarring left lung base with left pleural thickening. MEDIASTINUM AND HILAR STRUCTURES: No masses. Contour normal. HEART AND VASCULAR STRUCTURES: The heart is normal with aortic atherosclerosis. The pulmonary vascul ature is normal. BONES: Severe degenerative arthritis of both shoulders. Status post cervical fusion. Dorsal spondyl osis. HARDWARE: None in the chest. OTHER: No other significant finding. IMPRESSION: No acute disease. No significant change. TECHNICAL DOCUMENTATION: JOB ID: [id number] [employer]- All Rights Reserved Reading location - IP/workstation name: [email or web address]
[2018-09-23 10:39] LABS: ABSOLUTE EOSINOPHILS # (AUTO) 0.1 10^3/uL (0.0-0.6); ABSOLUTE LYMPHOCYTES (AUTO) 1.8 10^3/uL (0.5-4.7); ABSOLUTE MONOCYTES (AUTO) 0.6 10^3/uL (0.1-1.4); ABSOLUTE NEUT (AUTO) 6.2 10^3/uL (1.7-8.2); BASOPHILS % (AUTO) 0.4 % (0-2); EOSINOPHILS % (AUTO) 0.7 % (0-6); HEMATOCRIT 37.2 % (37.9-51.0); HEMOGLOBIN 12.5 g/dL (13.5-17.0); LYMPHOCYTES % (AUTO) 20.2 % (13-45); MEAN CORPUSCULAR HEMOGLOBIN 31.1 pg (27.0-33.4); MEAN CORPUSCULAR HGB CONC 33.5 g/dL (32.0-36.0); MEAN CORPUSCULAR VOLUME 93 fl (80-97); MONOCYTES % (AUTO) 7.1 % (3-13); PLATELET COUNT 235 10^3/uL (150-450); RED BLOOD COUNT 4.01 10^6/uL (4.35-5.55); RED CELL DISTRIBUTION WIDTH 14.5 % (11.5-14.0); SEGMENTED NEUTROPHILS % (AUTO) 71.6 % (42-78); TOTAL CELLS COUNTED % (AUTO) 100 %; WHITE BLOOD COUNT 8.7 10^3/uL (4.0-10.5)
[2018-09-23 10:50] LABS: ALANINE AMINOTRANSFERASE 41 U/L (21-72); ALBUMIN 2.1 g/dL (3.5-5.0); ALKALINE PHOSPHATASE 90 U/L (38-126); ANION GAP 8 (5-19); ASPARTATE AMINO TRANSFERASE 26 U/L (17-59); BILIRUBIN,DIRECT 0.4 mg/dL (0.0-0.4); BLOOD UREA NITROGEN 18 mg/dL (7-20); CALCIUM 8.1 mg/dL (8.4-10.2); CARBON DIOXIDE 24 mmol/L (22-30); CHLORIDE 104 mmol/L (98-107); GLUCOSE 115 mg/dL (75-110); POTASSIUM 3.7 mmol/L (3.6-5.0); SODIUM 135.5 mmol/L (137-145); TOTAL PROTEIN 4.5 g/dL (6.3-8.2)
[2018-09-23] MEDS: METOPROLOL TARTRATE PF/INJ 5 MG/5 ML SDV IV PRN (10:52)
[2018-09-23] MEDS: METOPROLOL SUCCINATE 50 MG TAB.SR.24H PO SCH (10:53)
[2018-09-23] MEDS: CEFTRIAXONE 1 GM/D5W RTU 1 GM/50 ML RTUPB IV SCH (10:55)
[2018-09-23] MEDS: OXYCODONE HCL IR 5 MG TABLET PO PRN ×4 (11:24→22:40)
--- NOTE | 2018-09-23 19:11 | PDOC PROGRESS REPORT ---
Subjective Progress Note for:: 09/23/18 Subjective:: AMELIA BOB is a 68 year old male with a PMH of chronic atrial fibrillation on Eliquis, COPD not on home O2, history of hypertension and hypothyroidism (now off medications for both), HALLIE not compliant on CPAP and opiate dependence for chronic low back and joint pains from osteoarthritis who presented with multiple BM after a bowel prep, weakness and hypotension with a BP of 69/57. Patient was given fluid boluses but eventually required vasopressor. He did have another large watery BM today. No other acute event overnight however patient continued to Levophed. Patient does have history of chronic atrial fibrillation and heart rate is running in the 120s this morning but this did improve down to 80s after switching Levophed to Gaurav-Synephrine and resuming lopressor. Patient also takes short acting and long-acting oxycodone at home. He is having some tremors and complains he may be withdrawing from his opiates. Explained that I do not recommend resuming the long-acting oxycodone at this time as he continues to require pressor. We will resume short acting oxycodone as needed. He denies any other acute complaints and denies chest pain or shortness of breath. No nausea, vomiting or diarrhea. No fever or chills. He will be getting another liter of fluid bolus. He is saturating well on room air. Reason For Visit: HYPOVOLEMIC SHOCK Physical Exam Vital Signs: Temp Pulse Resp BP Pulse Ox 97.7 F 95 12 92/53 L 99 09/23/18 14:00 09/23/18 14:00 09/23/18 14:45 09/23/18 14:45 09/23/18 14:45 Intake & Output 09/22/18 09/23/18 09/24/18 06:59 06:59 06:59 Intake Total 2027 2345 Output Total 465 315 Balance 1563 2029 Weight 282 lb 13.649 oz 282 lb 13.649 oz General appearance: PRESENT: no acute distress, well-developed, well-nourished Head exam: PRESENT: atraumatic, normocephalic Eye exam: PRESENT: conjunctiva pink, EOMI, PERRLA. ABSENT: scleral icterus Ear exam: PRESENT: normal external ear exam Mouth exam: PRESENT: moist, tongue midline Neck exam: ABSENT: carotid bruit, JVD, lymphadenopathy, thyromegaly Respiratory exam: PRESENT: clear to auscultation almaz. ABSENT: rales, rhonchi, wheezes Cardiovascular exam: PRESENT: RRR. ABSENT: diastolic murmur, rubs, systolic murmur Pulses: PRESENT: normal dorsalis pedis pul GI/Abdominal exam: PRESENT: normal bowel sounds, soft. ABSENT: distended, guarding, mass, organolmegaly, rebound, tenderness Rectal exam: PRESENT: deferred Neurological exam: PRESENT: alert, awake, oriented to person, oriented to place, oriented to time, oriented to situation, CN II-XII grossly intact. ABSENT: motor sensory deficit Results Laboratory Results: 09/23/18 10:20 09/23/18 10:20 09/22/18 09/23/18 09/23/18 15:20 09:35 09:35 WBC RBC Hgb Hct MCV MCH MCHC RDW Plt Count Seg Neutrophils % Lymphocytes % Monocytes % Eosinophils % Basophils % Absolute Neutrophils Absolute Lymphocytes Absolute Monocytes Absolute Eosinophils Absolute Basophils Sodium Potassium Chloride Carbon Dioxide Anion Gap BUN Creatinine Est GFR ( Amer) Est GFR (Non-Af Amer) Glucose Lactic Acid 1.9 Calcium Total Bilirubin AST ALT Alkaline Phosphatase Total Protein Albumin Stool Occult Blood NEGATIVE Stool for White Cells NO WBCs SEEN 09/23/18 09/23/18 10:20 10:20 WBC 8.7 RBC 4.01 L Hgb 12.5 L Hct 37.2 L MCV 93 MCH 31.1 MCHC 33.5 RDW 14.5 H Plt Count 235 Seg Neutrophils % 71.6 Lymphocytes % 20.2 Monocytes % 7.1 Eosinophils % 0.7 Basophils % 0.4 Absolute Neutrophils 6.2 Absolute Lymphocytes 1.8 Absolute Monocytes 0.6 Absolute Eosinophils 0.1 Absolute Basophils 0.0 Sodium 135.5 L Potassium 3.7 Chloride 104 Carbon Dioxide 24 Anion Gap 8 BUN 18 Creatinine 1.44 H Est GFR ( Amer) 59 L Est GFR (Non-Af Amer) 49 L Glucose 115 H Lactic Acid Calcium 8.1 L Total Bilirubin 1.0 AST 26 ALT 41 Alkaline Phosphatase 90 Total Protein 4.5 L Albumin 2.1 L Stool Occult Blood Stool for White Cells 09/22/18 10:59 CK-MB (CK-2) 1.15 Troponin I < 0.012 Impressions: Knee X-Ray 09/22/18 09:29 IMPRESSION: Potential quadriceps tendon injury. Correlate clinically. Chest X-Ray 09/23/18 08:29 IMPRESSION: No acute disease. No significant change. Assessment & Plan - Diagnosis (1) Hypovolemic shock Is this a current diagnosis for this admission?: Yes Plan: Hypotension is more likely related to severe volume depletion from GI losses with his opiate intake contributing to the hypotension. No leukocytosis, fever or clinical signs of infection or sepsis aside from pyuria on UA. No signs or symptoms of bleeding. Hemoglobin is normal and stable. Patient received 3L liters of bolus yesterday. Levophed switched to Gaurav- Synephrine. We will give another fluid bolus. Blood culture has been negative so far. (2) Chronic atrial fibrillation Is this a current diagnosis for this admission?: Yes Plan: Currently on heparin drip. Continue Lopressor. Cardizem on hold. (3) Opiate dependence Is this a current diagnosis for this admission?: Yes Plan: As mentioned, will hold off on long-acting oxycodone for now. Continue short- acting oxycodone as needed. - Time Time Spent with patient: 25-34 minutes
[2018-09-23] MEDS: HEPARIN SODIUM,PORCINE/D5W 25,000 UNIT/250 ML RTUINJ IV PRN (22:40)
[2018-09-24] MEDS: DEXTROSE 5%-WATER 250 ML with PHENYLEPHRINE HCL 40 MG IV PRN ×4 (01:37→10:13)
[2018-09-24] MEDS: OXYCODONE HCL IR 5 MG TABLET PO PRN ×5 (03:08→21:48)
[2018-09-24 04:26] LABS: INTERNATIONAL RATION (INR) 1.13; PROTHROMBIN TIME 15.1 SEC (11.4-15.4)
[2018-09-24 04:28] LABS: PARTIAL THROMBOPLASTIN TIME 86.4 SEC (23.5-35.8)
[2018-09-24] MEDS: LANSOPRAZOLE 30 MG TAB.RAP.DR PO SCH (05:49)
[2018-09-24] MEDS: NORMAL SALINE 1000 ML 1,000 ML IV PRN ×2 (05:49→10:13)
[2018-09-24] MEDS: TRAMADOL HCL 50 MG TABLET PO PRN ×4 (05:50→21:48)
[2018-09-24] MEDS ORDERED: NORMAL SALINE 1000 ML 1,000 ML IV ONE (08:18)
[2018-09-24 08:35] LABS: ABSOLUTE EOSINOPHILS # (AUTO) 0.2 10^3/uL (0.0-0.6); ABSOLUTE LYMPHOCYTES (AUTO) 2.5 10^3/uL (0.5-4.7); ABSOLUTE MONOCYTES (AUTO) 0.8 10^3/uL (0.1-1.4); ABSOLUTE NEUT (AUTO) 4.4 10^3/uL (1.7-8.2); BASOPHILS % (AUTO) 0.5 % (0-2); EOSINOPHILS % (AUTO) 2.9 % (0-6); HEMOGLOBIN 11.1 g/dL (13.5-17.0); LYMPHOCYTES % (AUTO) 30.8 % (13-45); MEAN CORPUSCULAR HEMOGLOBIN 31.5 pg (27.0-33.4); MEAN CORPUSCULAR HGB CONC 33.4 g/dL (32.0-36.0); MEAN CORPUSCULAR VOLUME 94 fl (80-97); MONOCYTES % (AUTO) 9.9 % (3-13); PLATELET COUNT 212 10^3/uL (150-450); RED BLOOD COUNT 3.51 10^6/uL (4.35-5.55); RED CELL DISTRIBUTION WIDTH 14.8 % (11.5-14.0); SEGMENTED NEUTROPHILS % (AUTO) 55.9 % (42-78); TOTAL CELLS COUNTED % (AUTO) 100 %
[2018-09-24 08:46] LABS: ANION GAP 5 (5-19); BLOOD UREA NITROGEN 16 mg/dL (7-20); CALCIUM 7.5 mg/dL (8.4-10.2); CARBON DIOXIDE 23 mmol/L (22-30); CHLORIDE 107 mmol/L (98-107); GLUCOSE 74 mg/dL (75-110); SODIUM 134.6 mmol/L (137-145)
[2018-09-24 08:50] LABS: POTASSIUM 3.6 mmol/L (3.6-5.0)
[2018-09-24] MEDS: ACETAMINOPHEN 325 MG TABLET PO PRN ×2 (10:04→16:23)
[2018-09-24] MEDS: METOPROLOL SUCCINATE 50 MG TAB.SR.24H PO SCH (10:05)
[2018-09-24] MEDS: HEPARIN SOD (PORCINE) 5,000 UNIT/ML 1 ML SYRINGE SUBCUT SCH (10:06)
[2018-09-24] MEDS: LORAZEPAM INJ 2 MG/1 ML VIAL IV PRN ×2 (10:06→21:48)
[2018-09-24] MEDS: CEFTRIAXONE 1 GM/D5W RTU 1 GM/50 ML RTUPB IV SCH (10:10)
--- NOTE | 2018-09-24 17:41 | PDOC PROGRESS REPORT ---
Subjective Progress Note for:: 09/24/18 Subjective:: AMELIA BOB is a 68 year old male with a PMH of chronic atrial fibrillation on Eliquis, COPD not on home O2, history of hypertension and hypothyroidism (now off medications for both), HALLIE not compliant on CPAP and opiate dependence for chronic low back and joint pains from osteoarthritis who presented with multiple BM after a bowel prep, weakness and hypotension with a BP of 69/57. Patient was given fluid boluses but eventually required vasopressor. He did have another large watery BM today. No other acute event overnight however patient continued to Levophed. Patient does have history of chronic atrial fibrillation and heart rate is running in the 120s this morning but this did improve down to 80s after switching Levophed to Gaurav-Synephrine and resuming lopressor. 09/23/18: Patient also takes short acting and long-acting oxycodone at home. He is having some tremors and complains he may be withdrawing from his opiates. Explained that I do not recommend resuming the long-acting oxycodone at this time as he continues to require pressor. We will resume short acting oxycodone as needed. He denies any other acute complaints and denies chest pain or shortness of breath. No nausea, vomiting or diarrhea. No fever or chills. He will be getting another liter of fluid bolus. He is saturating well on room air. 09/24/18: No acute event overnight. Patient had one loose, non bloody BM today but is less and is slightly better formed from yesterday. Neosynephrine is also being weaned down today. He is having less shaking and tremors. Denies chest donna n or SOB. Reason For Visit: HYPOVOLEMIC SHOCK Physical Exam Vital Signs: Temp Pulse Resp BP Pulse Ox 97.8 F 103 H 16 120/73 97 09/24/18 16:00 09/24/18 16:00 09/24/18 16:00 09/24/18 16:00 09/24/18 16:00 Intake & Output 09/23/18 09/24/18 09/25/18 06:59 06:59 06:59 Intake Total 2022 5202 3867 Output Total 465 1080 880 Balance 1563 4122 2987 Weight 282 lb 13.649 oz 294 lb 12.128 oz General appearance: PRESENT: no acute distress, well-developed, well-nourished Head exam: PRESENT: atraumatic, normocephalic Eye exam: PRESENT: conjunctiva pink, EOMI, PERRLA. ABSENT: scleral icterus Ear exam: PRESENT: normal external ear exam Neck exam: ABSENT: carotid bruit, JVD, lymphadenopathy, thyromegaly Respiratory exam: PRESENT: clear to auscultation almaz. ABSENT: rales, rhonchi, wheezes Cardiovascular exam: PRESENT: irregular rhythm. ABSENT: diastolic murmur, rubs, systolic murmur Pulses: PRESENT: normal dorsalis pedis pul GI/Abdominal exam: PRESENT: normal bowel sounds, soft. ABSENT: distended, guarding, mass, organolmegaly, rebound, tenderness Rectal exam: PRESENT: deferred Neurological exam: PRESENT: alert, awake, oriented to person, oriented to place, oriented to time, oriented to situation, CN II-XII grossly intact. ABSENT: motor sensory deficit Results Laboratory Results: 09/24/18 04:02 09/24/18 04:02 09/24/18 09/24/18 04:02 04:02 WBC 8.0 RBC 3.51 L Hgb 11.1 L Hct 33.0 L MCV 94 MCH 31.5 MCHC 33.4 RDW 14.8 H Plt Count 212 Seg Neutrophils % 55.9 Lymphocytes % 30.8 Monocytes % 9.9 Eosinophils % 2.9 Basophils % 0.5 Absolute Neutrophils 4.4 Absolute Lymphocytes 2.5 Absolute Monocytes 0.8 Absolute Eosinophils 0.2 Absolute Basophils 0.0 Sodium 134.6 L Potassium 3.6 Chloride 107 Carbon Dioxide 23 Anion Gap 5 BUN 16 Creatinine 1.22 Est GFR ( Amer) > 60 Est GFR (Non-Af Amer) 59 L Glucose 74 L Calcium 7.5 L 09/22/18 10:45 Catheterized Urine Urine Culture - Final Escherichia Coli 09/22/18 10:59 CK-MB (CK-2) 1.15 Troponin I < 0.012 Impressions: Knee X-Ray 09/22/18 09:29 IMPRESSION: Potential quadriceps tendon injury. Correlate clinically. Chest X-Ray 09/23/18 08:29 IMPRESSION: No acute disease. No significant change. Assessment & Plan - Diagnosis (1) Hypovolemic shock Is this a current diagnosis for this admission?: Yes Plan: Hypotension is more likely related to severe volume depletion from GI losses with his opiate intake contributing to the hypotension. No leukocytosis, fever or clinical signs of infection or sepsis aside from pyuria on UA. No signs or symptoms of bleeding. Hemoglobin is normal and stable. continue to wean off Gaurav-Synephrine. We will give another fluid bolus today. Blood culture has been negative so far. (2) Chronic atrial fibrillation Is this a current diagnosis for this admission?: Yes Plan: Currently on heparin drip. Continue Lopressor. Cardizem on hold. (3) Opiate dependence Is this a current diagnosis for this admission?: Yes Plan: As mentioned, will hold off on long-acting oxycodone for now. Continue short- acting oxycodone as needed. - Time Time Spent with patient: 25-34 minutes
[2018-09-25] MEDS: HEPARIN SOD (PORCINE) 5,000 UNIT/ML 1 ML SYRINGE SUBCUT SCH ×3 (01:32→21:00)
[2018-09-25] MEDS: TRAMADOL HCL 50 MG TABLET PO PRN ×4 (01:54→17:11)
[2018-09-25] MEDS: OXYCODONE HCL IR 5 MG TABLET PO PRN ×4 (01:54→17:12)
[2018-09-25 03:53] LABS: HEMOGLOBIN 10.2 g/dL (13.5-17.0); MEAN CORPUSCULAR HEMOGLOBIN 31.7 pg (27.0-33.4); MEAN CORPUSCULAR HGB CONC 34.1 g/dL (32.0-36.0); MEAN CORPUSCULAR VOLUME 93 fl (80-97); PLATELET COUNT 169 10^3/uL (150-450); RED BLOOD COUNT 3.23 10^6/uL (4.35-5.55); RED CELL DISTRIBUTION WIDTH 14.7 % (11.5-14.0); WHITE BLOOD COUNT 4.7 10^3/uL (4.0-10.5)
[2018-09-25 03:57] LABS: PROTHROMBIN TIME 14.8 SEC (11.4-15.4)
[2018-09-25 03:58] LABS: PARTIAL THROMBOPLASTIN TIME 53.8 SEC (23.5-35.8)
[2018-09-25] MEDS: LANSOPRAZOLE 30 MG TAB.RAP.DR PO SCH (05:39)
[2018-09-25] MEDS: HEPARIN SOD (PORCINE) 1,000 UNIT/ML 10 ML VIAL IV PRN ×2 (05:41→20:03)
[2018-09-25] MEDS: HEPARIN SODIUM,PORCINE/D5W 25,000 UNIT/250 ML RTUINJ IV PRN (05:43)
[2018-09-25] MEDS ORDERED: METOPROLOL SUCCINATE 25 MG TAB.SR.24H PO ONE ×2 (10:30→13:27)
[2018-09-25] MEDS: CEFTRIAXONE 1 GM/D5W RTU 1 GM/50 ML RTUPB IV SCH (10:36)
[2018-09-25] MEDS ORDERED: ONDANSETRON HCL INJ/PF 4 MG/2 ML SDV ONE (13:28)
[2018-09-25] MEDS: ONDANSETRON HCL INJ/PF 4 MG/2 ML SDV IV PRN (14:05)
[2018-09-25] MEDS: LORAZEPAM INJ 2 MG/1 ML VIAL IV PRN (14:05)
[2018-09-25] MEDS ORDERED: DILTIAZEM HCL 60 MG TABLET ONE (15:27)
[2018-09-25] MEDS: METOPROLOL TARTRATE PF/INJ 5 MG/5 ML SDV IV PRN ×2 (15:43→17:11)
[2018-09-25] MEDS ORDERED: DILTIAZEM HCL/D5W 125 MG/125 ML RTUINJ IV PRN (15:46)
[2018-09-25] MEDS ORDERED: DILTIAZEM HCL 60 MG TABLET PO ONE (16:00)
--- NOTE | 2018-09-25 16:17 | PDOC PROGRESS REPORT ---
Subjective Progress Note for:: 09/25/18 Subjective:: AMELIA BOB is a 68 year old male with a PMH of chronic atrial fibrillation on Eliquis, COPD not on home O2, history of hypertension and hypothyroidism (now off medications for both), HALLIE not compliant on CPAP and opiate dependence for chronic low back and joint pains from osteoarthritis who presented with multiple BM after a bowel prep, weakness and hypotension with a BP of 69/57. Patient was given fluid boluses but eventually required vasopressor. He did have another large watery BM today. No other acute event overnight however patient continued to Levophed. Patient does have history of chronic atrial fibrillation and heart rate is running in the 120s this morning but this did improve down to 80s after switching Levophed to Gaurav-Synephrine and resuming lopressor. 09/23/18: Patient also takes short acting and long-acting oxycodone at home. He is having some tremors and complains he may be withdrawing from his opiates. Explained that I do not recommend resuming the long-acting oxycodone at this time as he continues to require pressor. We will resume short acting oxycodone as needed. He denies any other acute complaints and denies chest pain or shortness of breath. No nausea, vomiting or diarrhea. No fever or chills. He will be getting another liter of fluid bolus. He is saturating well on room air. 09/24/18: No acute event overnight. Patient had one loose, non bloody BM today but is less and is slightly better formed from yesterday. Neosynephrine is also being weaned down today. He is having less shaking and tremors. Denies chest donna n or SOB. 09/25/18: No acute event overnight. Patient was weaned off neosynephrine overnight. He had a BM today and stools were soft and is close to his baseline. He has chronic Afib and HR this afternoon went into the 150s even with oral lopressor and a single dose of oral cardizem. Blood pressure is table in the 110/80s. He denies chest pain or SOB. He will be started on a cardizem drip. Reason For Visit: HYPOVOLEMIC SHOCK Physical Exam Vital Signs: Temp Pulse Resp BP Pulse Ox 98.1 F 103 H 15 95/77 L 96 09/25/18 11:55 09/25/18 11:55 09/25/18 11:55 09/25/18 11:55 09/25/18 11:55 Intake & Output 09/24/18 09/25/18 09/26/18 06:59 06:59 06:59 Intake Total 5202 4293 122 Output Total 1080 1510 295 Balance 4122 2783 -173 Weight 294 lb 12.128 oz 304 lb 10.861 oz General appearance: PRESENT: no acute distress, morbidly obese Head exam: PRESENT: atraumatic, normocephalic Eye exam: PRESENT: conjunctiva pink, EOMI, PERRLA. ABSENT: scleral icterus Ear exam: PRESENT: normal external ear exam Mouth exam: PRESENT: moist, tongue midline Neck exam: ABSENT: carotid bruit, JVD, lymphadenopathy, thyromegaly Respiratory exam: PRESENT: clear to auscultation almaz. ABSENT: rales, rhonchi, wheezes Cardiovascular exam: PRESENT: irregular rhythm, tachycardia. ABSENT: diastolic murmur Pulses: PRESENT: normal dorsalis pedis pul GI/Abdominal exam: PRESENT: normal bowel sounds, soft. ABSENT: distended, guarding, mass, organolmegaly, rebound, tenderness Rectal exam: PRESENT: deferred Neurological exam: PRESENT: alert, awake, oriented to person, oriented to place, oriented to time, oriented to situation, CN II-XII grossly intact. ABSENT: motor sensory deficit Results Laboratory Results: 09/25/18 03:37 09/24/18 04:02 09/25/18 09/25/18 03:37 03:37 WBC 4.7 RBC 3.23 L Hgb 10.2 L Hct 30.0 L MCV 93 MCH 31.7 MCHC 34.1 RDW 14.7 H Plt Count 169 Magnesium 1.6 09/23/18 09:35 Stool - Stool - Final 09/23/18 09:35 Stool - Stool Stool Culture - Final NO SALMONELLA, SHIGELLA, CAMPYLOBACTER, OR E.COLI 0157 RECOVERED. NEGATIVE FOR SHIGA TOXINS 1&2. 09/22/18 10:59 CK-MB (CK-2) 1.15 Troponin I < 0.012 Impressions: Knee X-Ray 09/22/18 09:29 IMPRESSION: Potential quadriceps tendon injury. Correlate clinically. Chest X-Ray 09/23/18 08:29 IMPRESSION: No acute disease. No significant change. Assessment & Plan - Diagnosis (1) Hypovolemic shock Is this a current diagnosis for this admission?: Yes Plan: Resolved. Weaned off Gaurav-Synephrine overnight. Hypotension is more likely related to severe volume depletion from GI losses with his opiate intake contributing to the hypotension. No leukocytosis, fever or clinical signs of infection or sepsis aside from pyuria on UA. No signs or symptoms of bleeding. Blood culture has been negative so far. (2) Chronic atrial fibrillation Is this a current diagnosis for this admission?: Yes Plan: Currently on heparin drip. He has chronic Afib and HR this afternoon went into the 150s even with oral lopressor and a single dose of oral cardizem. Blood pressure is table in the 110/80s. He denies chest pain or SOB. He will be started on a cardizem drip. (3) Opiate dependence Is this a current diagnosis for this admission?: Yes Plan: Continue short-acting oxycodone as needed. - Time Time Spent with patient: 25-34 minutes
[2018-09-25 16:59] LABS: ANION GAP 6 (5-19); BLOOD UREA NITROGEN 12 mg/dL (7-20); CALCIUM 8.1 mg/dL (8.4-10.2); CARBON DIOXIDE 24 mmol/L (22-30); CHLORIDE 108 mmol/L (98-107); GLUCOSE 78 mg/dL (75-110); SODIUM 137.5 mmol/L (137-145)
[2018-09-25 17:34] LABS: ABSOLUTE EOSINOPHILS # (AUTO) 0.1 10^3/uL (0.0-0.6); ABSOLUTE LYMPHOCYTES (AUTO) 1.5 10^3/uL (0.5-4.7); ABSOLUTE MONOCYTES (AUTO) 0.4 10^3/uL (0.1-1.4); ABSOLUTE NEUT (AUTO) 3.8 10^3/uL (1.7-8.2); BASOPHILS % (AUTO) 0.8 % (0-2); EOSINOPHILS % (AUTO) 2.2 % (0-6); HEMATOCRIT 36.6 % (37.9-51.0); HEMOGLOBIN 12.3 g/dL (13.5-17.0); LYMPHOCYTES % (AUTO) 25.6 % (13-45); MEAN CORPUSCULAR HEMOGLOBIN 31.4 pg (27.0-33.4); MEAN CORPUSCULAR HGB CONC 33.5 g/dL (32.0-36.0); MEAN CORPUSCULAR VOLUME 94 fl (80-97); MONOCYTES % (AUTO) 6.9 % (3-13); PLATELET COUNT 216 10^3/uL (150-450); RED BLOOD COUNT 3.91 10^6/uL (4.35-5.55); RED CELL DISTRIBUTION WIDTH 14.8 % (11.5-14.0); SEGMENTED NEUTROPHILS % (AUTO) 64.5 % (42-78); TOTAL CELLS COUNTED % (AUTO) 100 %; WHITE BLOOD COUNT 5.9 10^3/uL (4.0-10.5)
[2018-09-25 17:50] LABS: ALANINE AMINOTRANSFERASE 39 U/L (21-72); ALBUMIN 2.1 g/dL (3.5-5.0); ALKALINE PHOSPHATASE 84 U/L (38-126); ASPARTATE AMINO TRANSFERASE 40 U/L (17-59); BILIRUBIN,DIRECT 0.4 mg/dL (0.0-0.4); BILIRUBIN,TOTAL 0.5 mg/dL (0.2-1.3); TOTAL PROTEIN 4.6 g/dL (6.3-8.2)
--- NOTE | 2018-09-25 18:48 | RADIOLOGY REPORT (SQ) ---
EXAM DESCRIPTION: CT HEAD WITHOUT COMPLETED DATE/TIME: 09/25/2018 6:38 pm REASON FOR STUDY: ams COMPARISON: None. TECHNIQUE: Axial images acquired through the brain without intravenous contrast. Images reviewed wi th bone, brain and subdural windows. Additional sagittal and coronal reconstructions were generated. Images stored on PACS. All CT scanners at this facility use dose modulation, iterative reconstruction, and/or weight based d osing when appropriate to reduce radiation dose to as low as reasonably achievable (ALARA). [facility]: Dose Right [facility]: CareDose [facility]: Dose Right [facility]: Teradose 4D [facility]: Vaprema RADIATION DOSE: CT Rad equipment meets quality standard of care and radiation dose reduction techniq ues were employed. CTDIvol: 53.2 mGy. DLP: 1070 mGy-cm.mGy. LIMITATIONS: None. FINDINGS: VENTRICLES: Prominent. CEREBRUM: No masses. No hemorrhage. No midline shift. Areas of low density in the white matter mos t likely due to chronic micro-vascular ischemic change. No evidence for acute infarction. CEREBELLUM: No masses. No hemorrhage. No alteration of density. No evidence for acute infarction. EXTRAAXIAL SPACES: Age-related involutional change. No fluid collections. No masses. ORBITS AND GLOBE: No intra- or extraconal masses. Normal contour of globe without masses. CALVARIUM: No fracture. PARANASAL SINUSES: No fluid or mucosal thickening. SOFT TISSUES: No mass or hematoma. OTHER: No other significant finding. IMPRESSION: CHRONIC CHANGES OF ATROPHY AND MICROVASCULAR ISCHEMIA. NO ACUTE PROCESS. EVIDENCE OF ACUTE STROKE: NO. TECHNICAL DOCUMENTATION: JOB ID: [id number] Quality ID # [id number]: Final reports with documentation of one or more dose reduction techniques (e.g., Au tomated exposure control, adjustment of the mA and/or kV according to patient size, use of iterative reconstruction technique) 2010 [employer]- All Rights Reserved Reading location - IP/workstation name: [email or web address]
[2018-09-25] MEDS ORDERED: HALOPERIDOL LACTATE INJ 5 MG/1 ML VIAL IV PRN (19:01)
[2018-09-25] MEDS: NORMAL SALINE 1000 ML 1,000 ML IV PRN (22:09)
[2018-09-26] MEDS: OXYCODONE HCL IR 5 MG TABLET PO PRN ×6 (00:27→23:23)
[2018-09-26] MEDS: TRAMADOL HCL 50 MG TABLET PO PRN ×6 (00:27→22:05)
[2018-09-26] MEDS: LORAZEPAM INJ 2 MG/1 ML VIAL IV PRN (03:24)
[2018-09-26] MEDS: LANSOPRAZOLE 30 MG TAB.RAP.DR PO SCH (05:24)
[2018-09-26] MEDS: NORMAL SALINE 1000 ML 1,000 ML IV PRN ×2 (05:25→14:54)
[2018-09-26] MEDS: HEPARIN SODIUM,PORCINE/D5W 25,000 UNIT/250 ML RTUINJ IV PRN (05:25)
[2018-09-26] MEDS ORDERED: PEG 3350/NA SULF,BICARB,CL/KCL 4000 ML PO ONE ×2 (07:58→15:00)
[2018-09-26] MEDS: HEPARIN SOD (PORCINE) 5,000 UNIT/ML 1 ML SYRINGE SUBCUT SCH (09:26)
[2018-09-26] MEDS: CEFTRIAXONE 1 GM/D5W RTU 1 GM/50 ML RTUPB IV SCH (09:26)
[2018-09-26] MEDS: METOPROLOL SUCCINATE 50 MG TAB.SR.24H PO SCH (09:27)
[2018-09-26 09:55] LABS: INTERNATIONAL RATION (INR) 0.97; PROTHROMBIN TIME 13.4 SEC (11.4-15.4)
[2018-09-26 09:56] LABS: PARTIAL THROMBOPLASTIN TIME 41.2 SEC (23.5-35.8)
[2018-09-26] MEDS ORDERED: METOPROLOL SUCCINATE 25 MG TAB.SR.24H PO SCH (10:00)
[2018-09-26] MEDS: HEPARIN SOD (PORCINE) 1,000 UNIT/ML 10 ML VIAL IV PRN (10:45)
--- NOTE | 2018-09-26 11:03 | PDOC CONSULTATION ---
Consultation Consult Date: 09/26/18 Attending physician:: GIACOMO RICHARDS Consult reason:: change in bowel habits. anemia History of Present Illness Admission Date/PCP: 09/22/18 14:20 BRAN CERNA PA-C History of Present Illness: AMELIA BOB is a 68 year old male patient was scheduled for an EGD and colonoscopy patient had fallen and was seen in the ED, procedure was cancelled due to ongoing work up he does have chronic A fib has been in the ICU patient has been having a change in his bowel habits he was on anticoagulation which had been stopped patient now more stable can proceed with the procedures patient will be scheduled prior to his discharge so that his anticoagulation can be re-started Past Medical History Cardiac Medical History: Reports: Atrial Fibrillation, Coronary Artery Disease - A-FIB Denies: Myocardial Infarction, Hypertension Pulmonary Medical History: Reports: Chronic Obstructive Pulmonary Disease ([facility]), Pneumonia Denies: Asthma, Bronchitis Neurological Medical History: Denies: Seizures Endocrine Medical History: Reports: Hypothyroidism Musculoskeltal Medical History: Reports: Arthritis - DDD Hematology: Denies: Anemia Past Surgical History Past Surgical History: Reports: Gastric Bypass Surgery - 1993, Orthopedic Surgery - Herniated Disc Repair, Bilateral Knee Replacement Social History Smoking Status: Unknown if Ever Smoked Frequency of Alcohol Use: None Hx Recreational Drug Use: No Drugs: None Hx Prescription Drug Abuse: No Family History Family History: Reviewed & Not Pertinent, COPD Parental Family History Reviewed: Yes Children Family History Reviewed: Unknown Sibling(s) Family History Reviewed.: Unknown Medication/Allergy Home Medications: Apixaban [Eliquis 5 mg Tablet] 5 mg PO BID 09/22/18 Diphenoxylate HCl/Atrop Sulf [Lomotil 2.5 mg Tablet] 1 tab PO TIDP PRN 09/22/18 Gabapentin [Neurontin 300 mg Capsule] 300 mg PO QHS 09/22/18 Metoprolol Succinate [Toprol Xl 50 mg Tab.sr] 50 mg PO DAILY 09/22/18 Oxycodone HCl [Oxycodone HCl 10 MG Tablet] 10 mg PO Q4HP PRN 09/22/18 Oxycodone Myristate [Xtampza ER] 27 mg PO Q12 09/22/18 Allergies/Adverse Reactions: No Known Allergies Allergy (Verified 09/21/18 10:36) Review of Systems Constitutional: ABSENT: fever(s), headache(s), night sweats Eyes: ABSENT: visual disturbances Ears: ABSENT: hearing changes Nose, Mouth, and Throat: ABSENT: mouth pain Cardiovascular: ABSENT: edema, orthropnea Respiratory: ABSENT: dyspnea, hemoptysis Gastrointestinal: ABSENT: melena, nausea, vomiting Genitourinary: ABSENT: dysuria, hematuria Neurological: ABSENT: syncope, tingling, tremor(s) Endocrine: ABSENT: polydipsia, polyphagia, polyuria Hematologic/Lymphatic: ABSENT: easy bruising Physical Exam Vital Signs: Temp Pulse Resp BP Pulse Ox 97.9 F 93 14 101/72 98 09/26/18 08:00 09/26/18 10:00 09/26/18 10:00 09/26/18 10:00 09/26/18 10:00 Intake & Output 09/25/18 09/26/18 09/27/18 06:59 06:59 06:59 Intake Total 4293 1307 33 Output Total 1510 795 Balance 2783 512 33 Weight 138.2 kg 137.8 kg General appearance: PRESENT: no acute distress, well-developed, well-nourished Head exam: PRESENT: atraumatic, normocephalic Eye exam: PRESENT: EOMI, nystagmus, PERRLA. ABSENT: periorbital swelling, scleral icterus Mouth exam: PRESENT: moist, neck supple Throat exam: ABSENT: tonsillar exudate, tonsillogmegaly Respiratory exam: PRESENT: symmetrical, unlabored. ABSENT: tachypnea, wheezes Cardiovascular exam: PRESENT: irregular rhythm, +S1, +S2 GI/Abdominal exam: PRESENT: soft. ABSENT: rebound, rigid, tenderness Extremities exam: ABSENT: joint swelling Musculoskeletal exam: PRESENT: full ROM Neurological exam: PRESENT: oriented to time, oriented to situation, reflexes normal, CN II-XII grossly intact Focused psych exam: ABSENT: restlessness Skin exam: PRESENT: normal color. ABSENT: mottled, urticaria, vesicles Results Laboratory Results: 09/25/18 16:25 09/25/18 16:25 09/25/18 09/25/18 09/25/18 16:25 16:25 16:25 WBC 5.9 RBC 3.91 L Hgb 12.3 L D Hct 36.6 L MCV 94 MCH 31.4 MCHC 33.5 RDW 14.8 H Plt Count 216 Seg Neutrophils % 64.5 Lymphocytes % 25.6 Monocytes % 6.9 Eosinophils % 2.2 Basophils % 0.8 Absolute Neutrophils 3.8 Absolute Lymphocytes 1.5 Absolute Monocytes 0.4 Absolute Eosinophils 0.1 Absolute Basophils 0.0 Sodium 137.5 Cancelled Potassium 4.0 Cancelled Chloride 108 H Cancelled Carbon Dioxide 24 Cancelled Anion Gap 6 Cancelled BUN 12 Cancelled Creatinine 0.99 Cancelled Est GFR ( Amer) > 60 Cancelled Est GFR (Non-Af Amer) > 60 Cancelled Glucose 78 Cancelled Calcium 8.1 L Cancelled Total Bilirubin Cancelled AST Cancelled ALT Cancelled Alkaline Phosphatase Cancelled Total Protein Cancelled Albumin Cancelled 09/25/18 16:25 WBC RBC Hgb Hct MCV MCH MCHC RDW Plt Count Seg Neutrophils % Lymphocytes % Monocytes % Eosinophils % Basophils % Absolute Neutrophils Absolute Lymphocytes Absolute Monocytes Absolute Eosinophils Absolute Basophils Sodium Potassium Chloride Carbon Dioxide Anion Gap BUN Creatinine Est GFR ( Amer) Est GFR (Non-Af Amer) Glucose Calcium Total Bilirubin 0.5 AST 40 ALT 39 Alkaline Phosphatase 84 Total Protein 4.6 L Albumin 2.1 L 09/23/18 09:35 Stool - Stool - Final 09/23/18 09:35 Stool - Stool Stool Culture - Final NO SALMONELLA, SHIGELLA, CAMPYLOBACTER, OR E.COLI 0157 RECOVERED. NEGATIVE FOR SHIGA TOXINS 1&2. 09/22/18 10:59 CK-MB (CK-2) 1.15 Troponin I < 0.012 Impressions: Knee X-Ray 09/22/18 09:29 IMPRESSION: Potential quadriceps tendon injury. Correlate clinically. Chest X-Ray 09/23/18 08:29 IMPRESSION: No acute disease. No significant change. Head CT 09/25/18 17:48 IMPRESSION: CHRONIC CHANGES OF ATROPHY AND MICROVASCULAR ISCHEMIA. NO ACUTE PROCESS. EVIDENCE OF ACUTE STROKE: NO. Assessment & Plan - Diagnosis (1) Change in bowel habits Plan: stabilized currently off anticoagulation can proceed with EGD and colonoscopy discussed case with Dr Herman Risks, benefits and alternatives are discussed with the patient in detail further recommendations to follow - Time Time Spent: 50 to 70 Minutes
[2018-09-26] MEDS ORDERED: DIPHENOXYLATE HCL/ATROP SULF 2.5-0.025 MG TABLET PO PRN (17:25)
--- NOTE | 2018-09-26 18:39 | PDOC PROGRESS REPORT ---
Subjective Progress Note for:: 09/26/18 Subjective:: AMELIA BOB is a 68 year old male with a PMH of chronic atrial fibrillation on Eliquis, COPD not on home O2, history of hypertension and hypothyroidism (now off medications for both), HALLIE not compliant on CPAP and opiate dependence for chronic low back and joint pains from osteoarthritis who presented with multiple BM after a bowel prep, weakness and hypotension with a BP of 69/57. Patient was given fluid boluses but eventually required vasopressor. He did have another large watery BM today. No other acute event overnight however patient continued to Levophed. Patient does have history of chronic atrial fibrillation and heart rate is running in the 120s this morning but this did improve down to 80s after switching Levophed to Gaurav-Synephrine and resuming lopressor. 09/23/18: Patient also takes short acting and long-acting oxycodone at home. He is having some tremors and complains he may be withdrawing from his opiates. Explained that I do not recommend resuming the long-acting oxycodone at this time as he continues to require pressor. We will resume short acting oxycodone as needed. He denies any other acute complaints and denies chest pain or shortness of breath. No nausea, vomiting or diarrhea. No fever or chills. He will be getting another liter of fluid bolus. He is saturating well on room air. 09/24/18: No acute event overnight. Patient had one loose, non bloody BM today but is less and is slightly better formed from yesterday. Neosynephrine is also being weaned down today. He is having less shaking and tremors. Denies chest pa in or SOB. 09/25/18: No acute event overnight. Patient was weaned off neosynephrine overnight. He had a BM today and stools were soft and is close to his baseline. He has chronic Afib and HR this afternoon went into the 150s even with oral lopressor and a single dose of oral cardizem. Blood pressure is table in the 110/80s. He denies chest pain or SOB. He will be started on a cardizem drip. 09/26/2018-no acute events overnight. He does not have any loose bowel movements anymore. He is on A. fib on heparin drip be stopped heparin drip was started on Eliquis from [facility]. He is going for EGD and colonoscopy tomorrow. He is comfortably in the bed denies any complaints. Reason For Visit: HYPOVOLEMIC SHOCK Physical Exam Vital Signs: Temp Pulse Resp BP Pulse Ox 97.6 F 107 H 15 118/66 97 09/26/18 17:46 09/26/18 17:46 09/26/18 18:00 09/26/18 17:46 09/26/18 18:00 Intake & Output 09/25/18 09/26/18 09/27/18 06:59 06:59 06:59 Intake Total 4293 1307 1873 Output Total 1510 795 150 Balance 2783 512 1723 Weight 138.2 kg 137.8 kg General appearance: PRESENT: no acute distress Head exam: PRESENT: atraumatic Eye exam: PRESENT: PERRLA Mouth exam: PRESENT: moist Respiratory exam: PRESENT: clear to auscultation almaz. ABSENT: rales, rhonchi, wheezes Cardiovascular exam: PRESENT: irregular rhythm GI/Abdominal exam: PRESENT: normal bowel sounds, soft. ABSENT: tenderness Extremities exam: PRESENT: full ROM. ABSENT: calf tenderness, clubbing, pedal edema Neurological exam: PRESENT: alert, awake, oriented to person, oriented to place, oriented to time, oriented to situation, CN II-XII grossly intact. ABSENT: motor sensory deficit Psychiatric exam: PRESENT: appropriate affect, normal mood. ABSENT: homicidal ideation, suicidal ideation Results Laboratory Results: 09/25/18 16:25 09/25/18 16:25 09/22/18 10:59 CK-MB (CK-2) 1.15 Troponin I < 0.012 Impressions: Knee X-Ray 09/22/18 09:29 IMPRESSION: Potential quadriceps tendon injury. Correlate clinically. Chest X-Ray 09/23/18 08:29 IMPRESSION: No acute disease. No significant change. Head CT 09/25/18 17:48 IMPRESSION: CHRONIC CHANGES OF ATROPHY AND MICROVASCULAR ISCHEMIA. NO ACUTE PROCESS. EVIDENCE OF ACUTE STROKE: NO. Assessment & Plan - Diagnosis (1) Hypovolemic shock Is this a current diagnosis for this admission?: Yes Plan: Resolved. Weaned off Gaurav-Synephrine overnight. Hypotension is more likely related to severe volume depletion from GI losses with his opiate intake contributing to the hypotension. No leukocytosis, fever or clinical signs of infection or sepsis aside from pyuria on UA. No signs or symptoms of bleeding. Blood culture has been negative so far. 09/26/2018-patient blood pressure today is 118/80. He is off Gaurav-Synephrine. I am going to discontinue his IV fluids. Hypovolemic shock is resolved. Hypovolemic shock most likely secondary to GI losses with the opioid intake. (2) Chronic atrial fibrillation Is this a current diagnosis for this admission?: Yes Plan: Currently on heparin drip. He has chronic Afib and HR this afternoon went into the 150s even with oral lopressor and a single dose of oral cardizem. Blood pressure is table in the 110/80s. He denies chest pain or SOB. He will be started on a cardizem drip. 09/26/2018-patient is on Eliquis 5 mg p.o. twice daily at home, at present he is on heparin drip going to turn of the heparin drip and start on Eliquis from [facility]. Patient still in A. fib with heart rate is around 110-120s. 100 and Cardizem 60 mg p.o. every 8 hours. - Time Time Spent with patient: 15-24 minutes Medications reviewed and adjusted accordingly: Yes
[2018-09-26] MEDS: APIXABAN 5 MG TABLET PO SCH (18:45)
[2018-09-26] MEDS: GABAPENTIN 300 MG CAPSULE PO SCH (22:05)
[2018-09-26] MEDS: DILTIAZEM HCL 60 MG TABLET PO SCH (22:05)
[2018-09-26] MEDS: ONDANSETRON HCL INJ/PF 4 MG/2 ML SDV IV PRN (23:24)
[2018-09-27 05:41] LABS: INTERNATIONAL RATION (INR) 1.04; PROTHROMBIN TIME 14.2 SEC (11.4-15.4)
[2018-09-27] MEDS: DILTIAZEM HCL 60 MG TABLET PO SCH ×3 (06:05→22:44)
[2018-09-27] MEDS: LANSOPRAZOLE 30 MG TAB.RAP.DR PO SCH (07:04)
[2018-09-27 08:05] LABS: ABSOLUTE EOSINOPHILS # (AUTO) 0.2 10^3/uL (0.0-0.6); ABSOLUTE LYMPHOCYTES (AUTO) 2.2 10^3/uL (0.5-4.7); ABSOLUTE MONOCYTES (AUTO) 0.6 10^3/uL (0.1-1.4); ABSOLUTE NEUT (AUTO) 2.7 10^3/uL (1.7-8.2); BASOPHILS % (AUTO) 0.8 % (0-2); EOSINOPHILS % (AUTO) 3.7 % (0-6); HEMATOCRIT 36.1 % (37.9-51.0); HEMOGLOBIN 12.1 g/dL (13.5-17.0); LYMPHOCYTES % (AUTO) 38.2 % (13-45); MEAN CORPUSCULAR HEMOGLOBIN 31.6 pg (27.0-33.4); MEAN CORPUSCULAR HGB CONC 33.5 g/dL (32.0-36.0); MEAN CORPUSCULAR VOLUME 94 fl (80-97); MONOCYTES % (AUTO) 10.2 % (3-13); PLATELET COUNT 195 10^3/uL (150-450); RED BLOOD COUNT 3.84 10^6/uL (4.35-5.55); RED CELL DISTRIBUTION WIDTH 15.1 % (11.5-14.0); SEGMENTED NEUTROPHILS % (AUTO) 47.1 % (42-78); TOTAL CELLS COUNTED % (AUTO) 100 %; WHITE BLOOD COUNT 5.7 10^3/uL (4.0-10.5)
[2018-09-27 08:24] LABS: ALANINE AMINOTRANSFERASE 42 U/L (21-72); ALBUMIN 2.1 g/dL (3.5-5.0); ALKALINE PHOSPHATASE 79 U/L (38-126); ASPARTATE AMINO TRANSFERASE 34 U/L (17-59); BILIRUBIN,DIRECT 0.3 mg/dL (0.0-0.4); BILIRUBIN,TOTAL 0.5 mg/dL (0.2-1.3); BLOOD UREA NITROGEN 9 mg/dL (7-20); CALCIUM 8.3 mg/dL (8.4-10.2); CARBON DIOXIDE 26 mmol/L (22-30); CHLORIDE 109 mmol/L (98-107); GLUCOSE 65 mg/dL (75-110); POTASSIUM 3.9 mmol/L (3.6-5.0); SODIUM 139.2 mmol/L (137-145); TOTAL PROTEIN 4.6 g/dL (6.3-8.2)
[2018-09-27] MEDS: TRAMADOL HCL 50 MG TABLET PO PRN (08:24)
[2018-09-27 08:27] LABS: ANION GAP 5 (5-19)
[2018-09-27] MEDS ORDERED: DEXTROSE 40% GEL 15 GM TUBE PO PRN ×2 (09:03)
[2018-09-27] MEDS ORDERED: DEXTROSE 50%-WATER 25 GM/50 ML DISP.SYRIN IV PRN ×2 (09:03)
[2018-09-27] MEDS ORDERED: GLUCAGON,HUMAN RECOMB 1 MG INJ SUBCUT PRN (09:03)
--- NOTE | 2018-09-27 09:13 | PDOC PROGRESS REPORT ---
Subjective Progress Note for:: 09/27/18 Subjective:: AMELIA BOB is a 68 year old male with a PMH of chronic atrial fibrillation on Eliquis, COPD not on home O2, history of hypertension and hypothyroidism (now off medications for both), HALLIE not compliant on CPAP and opiate dependence for chronic low back and joint pains from osteoarthritis who presented with multiple BM after a bowel prep, weakness and hypotension with a BP of 69/57. Patient was given fluid boluses but eventually required vasopressor. He did have another large watery BM today. No other acute event overnight however patient continued to Levophed. Patient does have history of chronic atrial fibrillation and heart rate is running in the 120s this morning but this did improve down to 80s after switching Levophed to Gaurav-Synephrine and resuming lopressor. 09/23/18: Patient also takes short acting and long-acting oxycodone at home. He is having some tremors and complains he may be withdrawing from his opiates. Explained that I do not recommend resuming the long-acting oxycodone at this time as he continues to require pressor. We will resume short acting oxycodone as needed. He denies any other acute complaints and denies chest pain or shortness of breath. No nausea, vomiting or diarrhea. No fever or chills. He will be getting another liter of fluid bolus. He is saturating well on room air. 09/24/18: No acute event overnight. Patient had one loose, non bloody BM today but is less and is slightly better formed from yesterday. Neosynephrine is also being weaned down today. He is having less shaking and tremors. Denies chest pa in or SOB. 09/25/18: No acute event overnight. Patient was weaned off neosynephrine overnight. He had a BM today and stools were soft and is close to his baseline. He has chronic Afib and HR this afternoon went into the 150s even with oral lopressor and a single dose of oral cardizem. Blood pressure is table in the 110/80s. He denies chest pain or SOB. He will be started on a cardizem drip. 09/26/2018-no acute events overnight. He does not have any loose bowel movements anymore. He is on A. fib on heparin drip be stopped heparin drip was started on Eliquis from [facility]. He is going for EGD and colonoscopy tomorrow. He is comfortably in the bed denies any complaints. 09/27/2018-no acute events overnight patient is afebrile. Heparin was drip was discontinued yesterday started back on Eliquis 5 mg p.o. twice daily. She is going for EGD and colonoscopy today. To be n.p.o. from this morning. pt is comfortably in the sleeping in bed woke up on calling denies any complaints. Reason For Visit: HYPOVOLEMIC SHOCK Physical Exam Vital Signs: Temp Pulse Resp BP Pulse Ox 98 F 90 13 131/108 H 98 09/27/18 05:13 09/27/18 07:52 09/27/18 06:45 09/27/18 06:32 09/27/18 05:45 Intake & Output 09/26/18 09/27/18 09/28/18 06:59 06:59 06:59 Intake Total 1307 1873 Output Total 795 150 Balance 512 1723 Weight 137.8 kg 140.1 kg General appearance: PRESENT: other - Obese male comfortably sleeping in bed. Head exam: PRESENT: atraumatic Eye exam: PRESENT: PERRLA Mouth exam: PRESENT: moist Neck exam: ABSENT: carotid bruit, JVD, lymphadenopathy, thyromegaly Respiratory exam: PRESENT: decreased breath sounds Cardiovascular exam: PRESENT: irregular rhythm GI/Abdominal exam: PRESENT: other - Obese abdomen soft nontender bowel sounds are present. Extremities exam: PRESENT: full ROM. ABSENT: calf tenderness, clubbing, pedal edema Neurological exam: PRESENT: alert, awake, oriented to person, oriented to place, oriented to time, oriented to situation, CN II-XII grossly intact. ABSENT: motor sensory deficit Psychiatric exam: PRESENT: appropriate affect, normal mood. ABSENT: homicidal ideation, suicidal ideation Results Laboratory Results: 09/27/18 07:54 09/27/18 07:54 09/27/18 09/27/18 09/27/18 05:10 07:54 07:54 WBC 5.7 RBC 3.84 L Hgb 12.1 L Hct 36.1 L MCV 94 MCH 31.6 MCHC 33.5 RDW 15.1 H Plt Count 195 Seg Neutrophils % 47.1 Lymphocytes % 38.2 Monocytes % 10.2 Eosinophils % 3.7 Basophils % 0.8 Absolute Neutrophils 2.7 Absolute Lymphocytes 2.2 Absolute Monocytes 0.6 Absolute Eosinophils 0.2 Absolute Basophils 0.0 Sodium Cancelled 139.2 Potassium Cancelled 3.9 Chloride Cancelled 109 H Carbon Dioxide Cancelled 26 Anion Gap Cancelled 5 BUN Cancelled 9 Creatinine Cancelled 0.88 Est GFR ( Amer) Cancelled > 60 Est GFR (Non-Af Amer) Cancelled > 60 Glucose Cancelled 65 L Calcium Cancelled 8.3 L Magnesium Cancelled 1.7 Total Bilirubin Cancelled 0.5 AST Cancelled 34 ALT Cancelled 42 Alkaline Phosphatase Cancelled 79 Total Protein Cancelled 4.6 L Albumin Cancelled 2.1 L 09/22/18 10:59 CK-MB (CK-2) 1.15 Troponin I < 0.012 Impressions: Knee X-Ray 09/22/18 09:29 IMPRESSION: Potential quadriceps tendon injury. Correlate clinically. Chest X-Ray 09/23/18 08:29 IMPRESSION: No acute disease. No significant change. Head CT 09/25/18 17:48 IMPRESSION: CHRONIC CHANGES OF ATROPHY AND MICROVASCULAR ISCHEMIA. NO ACUTE PROCESS. EVIDENCE OF ACUTE STROKE: NO. Assessment & Plan - Diagnosis (1) Hypovolemic shock Is this a current diagnosis for this admission?: Yes Plan: Resolved. Weaned off Gaurav-Synephrine overnight. Hypotension is more likely related to severe volume depletion from GI losses with his opiate intake contributing to the hypotension. No leukocytosis, fever or clinical signs of infection or sepsis aside from pyuria on UA. No signs or symptoms of bleeding. Blood culture has been negative so far. 09/26/2018-patient blood pressure today is 118/80. He is off Gaurav-Synephrine. I am going to discontinue his IV fluids. Hypovolemic shock is resolved. Hypovolemic shock most likely secondary to GI losses with the opioid intake. 09/27/2018-blood pressure today is 131/90 with pulse rate of 98. Hypovolemic shock is resolved. IV fluids were discontinued yesterday. Hypokalemia most li boaz secondary to GI losses with opioid intake. Patient is stable enough to go to the [facility] after the EGD and colonoscopy. (2) Chronic atrial fibrillation Is this a current diagnosis for this admission?: Yes Plan: Currently on heparin drip. He has chronic Afib and HR this afternoon went into the 150s even with oral lopressor and a single dose of oral cardizem. Blood pressure is table in the 110/80s. He denies chest pain or SOB. He will be started on a cardizem drip. 09/26/2018-patient is on Eliquis 5 mg p.o. twice daily at home, at present he is on heparin drip going to turn of the heparin drip and start on Eliquis from [facility]. Patient still in A. fib with heart rate is around 110-120s. 100 and Cardizem 60 mg p.o. every 8 hours. 09/27/2017-patient still in atrial fibrillation heart rate is around 80-90. He is on Eliquis 5 mg p.o. twice daily. He was also on diltiazem 60 mg p.o. every 8 hours. pt is off the Cardizem drip since yesterday. (3) Obesity (BMI 35.0-39.9 without comorbidity) Is this a current diagnosis for this admission?: Yes Plan: 09/27/2018-patient's BMI is more than 40.0 diet exercise weight loss and lifestyle modifications are advised and discussed with the patient dietary consult was requested. - Time Time Spent with patient: 15-24 minutes Medications reviewed and adjusted accordingly: Yes Anticipated discharge: Home
[2018-09-27] MEDS ORDERED: HYDROMORPHONE HCL INJ/PF 2 MG/ML AMPULE IV ONE (09:56)
[2018-09-27] MEDS ORDERED: METOPROLOL TARTRATE PF/INJ 5 MG/5 ML SDV IV PRN ×2 (09:58→12:49)
[2018-09-27] MEDS: APIXABAN 5 MG TABLET PO SCH (09:59)
[2018-09-27] MEDS: CEFTRIAXONE 1 GM/D5W RTU 1 GM/50 ML RTUPB IV SCH (09:59)
[2018-09-27] MEDS: METOPROLOL SUCCINATE 50 MG TAB.SR.24H PO SCH (10:06)
[2018-09-27] MEDS: OXYCODONE HCL IR 5 MG TABLET PO PRN ×3 (13:52→22:43)
--- NOTE | 2018-09-27 14:33 | Progress Note ---
Provider Note Provider Note: patient was scheduled for his EGD and colonoscopy today however was given his Eliquis yesterday and PTT is elevated in conjunction with Anesthesia, the procedure is appropriately cancelled due to high risk of bleeding I wrote orders to discontinue Eliquis use along with discontinuation of heparin 6 hours prior to his procedure which is now rescheduled for tomorrow patient to remain on clear today, do not restart diet patient may need a little more prep overnight as well will speak to RN
[2018-09-27] MEDS ORDERED: POLYETHYLENE GLYCOL 3350 POWDER 17 GM/1 PACKET PO ONE (18:00)
[2018-09-27] MEDS: GABAPENTIN 300 MG CAPSULE PO SCH (22:45)
[2018-09-27] MEDS: LORAZEPAM INJ 2 MG/1 ML VIAL IV PRN (22:45)
[2018-09-28] MEDS: OXYCODONE HCL IR 5 MG TABLET PO PRN ×3 (04:22→21:43)
[2018-09-28 04:43] LABS: ABSOLUTE EOSINOPHILS # (AUTO) 0.2 10^3/uL (0.0-0.6); ABSOLUTE LYMPHOCYTES (AUTO) 1.8 10^3/uL (0.5-4.7); ABSOLUTE MONOCYTES (AUTO) 0.6 10^3/uL (0.1-1.4); ABSOLUTE NEUT (AUTO) 2.3 10^3/uL (1.7-8.2); BASOPHILS % (AUTO) 0.9 % (0-2); EOSINOPHILS % (AUTO) 4.6 % (0-6); HEMATOCRIT 33.5 % (37.9-51.0); HEMOGLOBIN 11.2 g/dL (13.5-17.0); LYMPHOCYTES % (AUTO) 36.4 % (13-45); MEAN CORPUSCULAR HEMOGLOBIN 31.5 pg (27.0-33.4); MEAN CORPUSCULAR HGB CONC 33.6 g/dL (32.0-36.0); MEAN CORPUSCULAR VOLUME 94 fl (80-97); MONOCYTES % (AUTO) 11.9 % (3-13); PLATELET COUNT 205 10^3/uL (150-450); RED BLOOD COUNT 3.57 10^6/uL (4.35-5.55); RED CELL DISTRIBUTION WIDTH 15.2 % (11.5-14.0); SEGMENTED NEUTROPHILS % (AUTO) 46.2 % (42-78); TOTAL CELLS COUNTED % (AUTO) 100 %; WHITE BLOOD COUNT 4.9 10^3/uL (4.0-10.5)
[2018-09-28 05:00] LABS: ALANINE AMINOTRANSFERASE 46 U/L (21-72); ALBUMIN 1.8 g/dL (3.5-5.0); ALKALINE PHOSPHATASE 72 U/L (38-126); ASPARTATE AMINO TRANSFERASE 29 U/L (17-59); BILIRUBIN,DIRECT 0.2 mg/dL (0.0-0.4); BILIRUBIN,TOTAL 0.3 mg/dL (0.2-1.3); BLOOD UREA NITROGEN 8 mg/dL (7-20); CALCIUM 8.3 mg/dL (8.4-10.2); GLUCOSE 77 mg/dL (75-110); POTASSIUM 3.7 mmol/L (3.6-5.0)
[2018-09-28 05:21] LABS: CARBON DIOXIDE 25 mmol/L (22-30); CHLORIDE 109 mmol/L (98-107); SODIUM 137.4 mmol/L (137-145)
[2018-09-28 05:24] LABS: ANION GAP 3 (5-19)
[2018-09-28] MEDS ORDERED: NORMAL SALINE 1000 ML 1,000 ML IV PRN (07:36)
--- NOTE | 2018-09-28 08:58 | PDOC PROGRESS REPORT ---
Subjective Progress Note for:: 09/28/18 Subjective:: AMELIA BOB is a 68 year old male with a PMH of chronic atrial fibrillation on Eliquis, COPD not on home O2, history of hypertension and hypothyroidism (now off medications for both), HALLIE not compliant on CPAP and opiate dependence for chronic low back and joint pains from osteoarthritis who presented with multiple BM after a bowel prep, weakness and hypotension with a BP of 69/57. Patient was given fluid boluses but eventually required vasopressor. He did have another large watery BM today. No other acute event overnight however patient continued to Levophed. Patient does have history of chronic atrial fibrillation and heart rate is running in the 120s this morning but this did improve down to 80s after switching Levophed to Gaurav-Synephrine and resuming lopressor. 09/23/18: Patient also takes short acting and long-acting oxycodone at home. He is having some tremors and complains he may be withdrawing from his opiates. Explained that I do not recommend resuming the long-acting oxycodone at this time as he continues to require pressor. We will resume short acting oxycodone as needed. He denies any other acute complaints and denies chest pain or shortness of breath. No nausea, vomiting or diarrhea. No fever or chills. He will be getting another liter of fluid bolus. He is saturating well on room air. 09/24/18: No acute event overnight. Patient had one loose, non bloody BM today but is less and is slightly better formed from yesterday. Neosynephrine is also being weaned down today. He is having less shaking and tremors. Denies chest pa in or SOB. 09/25/18: No acute event overnight. Patient was weaned off neosynephrine overnight. He had a BM today and stools were soft and is close to his baseline. He has chronic Afib and HR this afternoon went into the 150s even with oral lopressor and a single dose of oral cardizem. Blood pressure is table in the 110/80s. He denies chest pain or SOB. He will be started on a cardizem drip. 09/26/2018-no acute events overnight. He does not have any loose bowel movements anymore. He is on A. fib on heparin drip be stopped heparin drip was started on Eliquis from [employer]. He is going for EGD and colonoscopy tomorrow. He is comfortably in the bed denies any complaints. 09/27/2018-no acute events overnight patient is afebrile. Heparin was drip was discontinued yesterday started back on Eliquis 5 mg p.o. twice daily. She is going for EGD and colonoscopy today. To be n.p.o. from this morning. pt is comfortably in the sleeping in bed woke up on calling denies any complaints. 09/28/2018-no acute events overnight patient is afebrile. The blood pressure today is 102/64. Patient is asymptomatic. She is going for EGD and colonoscopy today. Eliquis on hold. Reason For Visit: HYPOVOLEMIC SHOCK Physical Exam Vital Signs: Temp Pulse Resp BP Pulse Ox 97.7 F 67 18 102/64 95 09/28/18 07:38 09/28/18 07:38 09/28/18 07:38 09/28/18 07:38 09/28/18 07:38 Intake & Output 09/27/18 09/28/18 09/29/18 06:59 06:59 06:59 Intake Total 1923 522 Output Total 150 1300 Balance 1773 -778 Weight 140.1 kg 139 kg General appearance: PRESENT: no acute distress Head exam: PRESENT: atraumatic Eye exam: PRESENT: PERRLA Mouth exam: PRESENT: moist Neck exam: ABSENT: carotid bruit, JVD, lymphadenopathy, thyromegaly Respiratory exam: PRESENT: clear to auscultation almaz. ABSENT: rales, rhonchi, wheezes Cardiovascular exam: PRESENT: irregular rhythm GI/Abdominal exam: PRESENT: other - Obese abdomen soft and nontender. Extremities exam: PRESENT: +2 edema Neurological exam: PRESENT: alert, awake, oriented to person, oriented to place, oriented to time, oriented to situation, CN II-XII grossly intact. ABSENT: motor sensory deficit Psychiatric exam: PRESENT: appropriate affect, normal mood. ABSENT: homicidal ideation, suicidal ideation Results Laboratory Results: 09/28/18 04:05 09/28/18 04:05 09/28/18 09/28/18 09/28/18 04:05 04:05 04:05 WBC 4.9 RBC 3.57 L Hgb 11.2 L Hct 33.5 L MCV 94 MCH 31.5 MCHC 33.6 RDW 15.2 H Plt Count 205 Seg Neutrophils % 46.2 Lymphocytes % 36.4 Monocytes % 11.9 Eosinophils % 4.6 Basophils % 0.9 Absolute Neutrophils 2.3 Absolute Lymphocytes 1.8 Absolute Monocytes 0.6 Absolute Eosinophils 0.2 Absolute Basophils 0.0 Sodium 137.4 Potassium 3.7 Chloride 109 H Carbon Dioxide 25 Anion Gap 3 L BUN 8 Creatinine 0.83 Est GFR ( Amer) > 60 Est GFR (Non-Af Amer) > 60 Glucose 77 Calcium 8.3 L Magnesium 1.7 Total Bilirubin 0.3 AST 29 ALT 46 Alkaline Phosphatase 72 Total Protein 4.0 L Albumin 1.8 L TSH 2.21 09/22/18 15:20 Blood Blood Culture - Final NO GROWTH IN 5 DAYS 09/22/18 10:45 Blood Blood Culture - Final NO GROWTH IN 5 DAYS 09/22/18 10:59 CK-MB (CK-2) 1.15 Troponin I < 0.012 Impressions: Knee X-Ray 09/22/18 09:29 IMPRESSION: Potential quadriceps tendon injury. Correlate clinically. Chest X-Ray 09/23/18 08:29 IMPRESSION: No acute disease. No significant change. Head CT 09/25/18 17:48 IMPRESSION: CHRONIC CHANGES OF ATROPHY AND MICROVASCULAR ISCHEMIA. NO ACUTE PROCESS. EVIDENCE OF ACUTE STROKE: NO. Assessment & Plan - Diagnosis (1) Hypovolemic shock Is this a current diagnosis for this admission?: Yes Plan: Resolved. Weaned off Gaurav-Synephrine overnight. Hypotension is more likely related to severe volume depletion from GI losses with his opiate intake contributing to the hypotension. No leukocytosis, fever or clinical signs of infection or sepsis aside from pyuria on UA. No signs or s ymptoms of bleeding. Blood culture has been negative so far. 09/26/2018-patient blood pressure today is 118/80. He is off Gaurav-Synephrine. I am going to discontinue his IV fluids. Hypovolemic shock is resolved. Hypovolemic shock most likely secondary to GI losses with the opioid intake. 09/27/2018-blood pressure today is 131/90 with pulse rate of 98. Hypovolemic shock is resolved. IV fluids were discontinued yesterday. Hypokalemia most likely secondary to GI losses with opioid intake. Patient is stable enough to go to the [facility] after the EGD and colonoscopy. 09/28/2017-blood pressure today is 102/64 with pulse rate of 1078 patient is still in atrial fibrillation. He is on p.o. Cardizem 60 mg every 8 hours. Patient is going for EGD colonoscopy today. Once he comes back from a EGD co lonoscopy will going to put him back on Eliquis. (2) Chronic atrial fibrillation Is this a current diagnosis for this admission?: Yes Plan: Currently on heparin drip. He has chronic Afib and HR this afternoon went into the 150s even with oral lopressor and a single dose of oral cardizem. Blood pressure is table in the 110/80s. He denies chest pain or SOB. He will be started on a cardizem drip. 09/26/2018-patient is on Eliquis 5 mg p.o. twice daily at home, at present he is on heparin drip going to turn of the heparin drip and start on Eliquis from [facility]. Patient still in A. fib with heart rate is around 110-120s. 100 and Cardizem 60 mg p.o. every 8 hours. 09/27/2017-patient still in atrial fibrillation heart rate is around 80-90. He is on Eliquis 5 mg p.o. twice daily. He was also on diltiazem 60 mg p.o. every 8 hours. pt is off the Cardizem drip since yesterday. 09/28/2018-patient still in A. fib with heart rate of 107 p.o. medication on hold for EGD today. Be going to put him back on his Cardizem and Eliquis once he came back from the procedure. Patient is asymptomatic alert and oriented communicating very well. (3) Obesity (BMI 35.0-39.9 without comorbidity) Is this a current diagnosis for this admission?: Yes Plan: 09/27/2018-patient's BMI is more than 40.0 diet exercise weight loss and lifestyle modifications are advised and discussed with the patient dietary consult was requested. 09/28/2018-patient's BMI is more than 40-dietary consult was done. - Time Time Spent with patient: 15-24 minutes Medications reviewed and adjusted accordingly: Yes Anticipated discharge: Home
[2018-09-28] MEDS: DILTIAZEM HCL 60 MG TABLET PO SCH ×3 (09:55→21:43)
[2018-09-28] MEDS: LANSOPRAZOLE 30 MG TAB.RAP.DR PO SCH (09:55)
[2018-09-28] MEDS: CEFTRIAXONE 1 GM/D5W RTU 1 GM/50 ML RTUPB IV SCH (10:21)
[2018-09-28] MEDS ORDERED: FENTANYL CITRATE INJ/PF 100 MCG/2 ML AMPUL ONE (11:43)
[2018-09-28] MEDS ORDERED: PROPOFOL INJ 200 MG/20 ML VIAL IV ONE (14:24)
--- NOTE | 2018-09-28 15:11 | Progress Note ---
Provider Note Provider Note: patient seen in OR holding apparently IV access was lost some time in transfer between ICU and medical floor not able to place. attempted by anesthesiology x3 will need surgical placement cannot proceed with sedation without IV access procedure to be rescheduled until tomorrow keep on clear npo post midnight patient will need to resume on his heparin and then turn off at 4am tomorrow am patient advised,
--- NOTE | 2018-09-28 15:34 | Progress Note ---
Provider Note Provider Note: I had called to speak with RN on floor patient does not have IV access patient will need access, wither PICC line vs central line since he is also needs to be on a heparin drip since his Eliquis needed to be stopped for the planned procedure since we could not do it today due to the lack of IV access, the priority should be to get access and get the patient on titratable anticoagulation. patient to be kept on clears will re-attempt tomorrow,
[2018-09-28] MEDS ORDERED: HEPARIN SOD (PORCINE) 1,000 UNIT/ML 10 ML VIAL IV ONE (15:49)
[2018-09-28] MEDS ORDERED: HEPARIN SODIUM,PORCINE/D5W 25,000 UNIT/250 ML RTUINJ IV PRN (15:49)
[2018-09-28] MEDS ORDERED: DILTIAZEM HCL 60 MG TABLET PO ONE (16:30)
[2018-09-28 17:46] LABS: ABSOLUTE EOSINOPHILS # (AUTO) 0.1 10^3/uL (0.0-0.6); ABSOLUTE LYMPHOCYTES (AUTO) 1.5 10^3/uL (0.5-4.7); ABSOLUTE MONOCYTES (AUTO) 0.4 10^3/uL (0.1-1.4); ABSOLUTE NEUT (AUTO) 2.8 10^3/uL (1.7-8.2); BASOPHILS % (AUTO) 0.7 % (0-2); EOSINOPHILS % (AUTO) 2.7 % (0-6); HEMATOCRIT 33.4 % (37.9-51.0); HEMOGLOBIN 11.1 g/dL (13.5-17.0); LYMPHOCYTES % (AUTO) 30.9 % (13-45); MEAN CORPUSCULAR HEMOGLOBIN 31.5 pg (27.0-33.4); MEAN CORPUSCULAR HGB CONC 33.2 g/dL (32.0-36.0); MEAN CORPUSCULAR VOLUME 95 fl (80-97); MONOCYTES % (AUTO) 8.4 % (3-13); PLATELET COUNT 215 10^3/uL (150-450); RED BLOOD COUNT 3.52 10^6/uL (4.35-5.55); RED CELL DISTRIBUTION WIDTH 14.8 % (11.5-14.0); SEGMENTED NEUTROPHILS % (AUTO) 57.3 % (42-78); TOTAL CELLS COUNTED % (AUTO) 100 %
[2018-09-28 17:52] LABS: PROTHROMBIN TIME 14.7 SEC (11.4-15.4)
[2018-09-28 17:53] LABS: PARTIAL THROMBOPLASTIN TIME 30.7 SEC (23.5-35.8)
[2018-09-28] MEDS ORDERED: HEPARIN SOD (PORCINE) 1,000 UNIT/ML 10 ML VIAL IV PRN (18:50)
[2018-09-28] MEDS: GABAPENTIN 300 MG CAPSULE PO SCH (21:43)
[2018-09-28 22:22] LABS: APPEARANCE,URINE CLEAR; BILIRUBIN,URINE NEGATIVE (NEGATIVE); COLOR,URINE YELLOW; GLUCOSE, URINE NEGATIVE (NEGATIVE); KETONES,URINE NEGATIVE (NEGATIVE); LEUKOCYTE ESTERASE,URINE NEGATIVE (NEGATIVE); NITRITE,URINE NEGATIVE (NEGATIVE); PROTEIN,URINE NEGATIVE (NEGATIVE); URINE SPECIFIC GRAVITY 1.009; UROBILINOGEN,URINE NEGATIVE mg/dL (<2.0)
--- NOTE | 2018-09-28 22:56 | Operative Report ---
Operative Report DATE OF SURGERY: 09/28/18 PREOPERATIVE DIAGNOSIS: Hypovolemia, atrial fib with critical need for intraven ous anticoagulation. Critical need for intravenous access. POSTOPERATIVE DIAGNOSIS: Same OPERATION: Right subclavian triple-lumen central venous catheter placement SURGEON: ROSINA COLON ANESTHESIA: Local TISSUE REMOVED OR ALTERED: None COMPLICATIONS: None ESTIMATED BLOOD LOSS: 30 cc INTRAOPERATIVE FINDINGS: None PROCEDURE: Informed consent was obtained. Procedure was done at the patient's bedside. Patient's right neck and chest was prepped and draped in usual sterile fashion. Local anesthetic was administered. The right subclavian vein was entered without difficulty however it had intermittent blood flow consistent. I could not pass the guidewire. Several more attempts were made with identical findings. With the last stick however I was able to get better flow and was able to feed the guidewire without resistance. At no point did I aspirate any air. Triple-lumen central venous catheter was placed via the Seldinger technique. It withdrew blood and flushed easily. It was sutured in place. Dressings were applied. Stat portable chest x-ray was ordered. Patient tolerated procedure well with no apparent complications.
--- NOTE | 2018-09-28 23:17 | RADIOLOGY REPORT (SQ) ---
EXAM DESCRIPTION: XR CHEST 1 VIEW COMPLETED DATE/TME: 09/28/2018 00:00 CLINICAL HISTORY: 68 years, Male, central line placement COMPARISON: 09/23/2018 chest x-ray NUMBER OF VIEWS: 1 TECHNIQUE: Portable chest LIMITATIONS: None. FINDINGS: Cardiomegaly. Postsurgical change of the cervical spine. Osteopenia. Underlying COPD. Right central venous catheter in place. Tip in the SVC. No pneumothorax. Lungs are clear. Atheromatous change thoracic aorta. IMPRESSION: Cardiomegaly. Tip of the central line in the SVC. No pneumothorax Underlying COPD. copyright 2010 [employer]- All Rights Reserved
[2018-09-29] MEDS: POTASSI CL 20 MEQ/D5-1/2NS 1L 1000 ML IV PRN ×2 (00:33→06:26)
[2018-09-29] MEDS: OXYCODONE HCL IR 5 MG TABLET PO PRN ×3 (03:46→21:49)
[2018-09-29 04:33] LABS: HEMATOCRIT 28.8 % (37.9-51.0); HEMOGLOBIN 9.7 g/dL (13.5-17.0); MEAN CORPUSCULAR HEMOGLOBIN 31.7 pg (27.0-33.4); MEAN CORPUSCULAR HGB CONC 33.7 g/dL (32.0-36.0); MEAN CORPUSCULAR VOLUME 94 fl (80-97); PLATELET COUNT 182 10^3/uL (150-450); RED BLOOD COUNT 3.06 10^6/uL (4.35-5.55); WHITE BLOOD COUNT 4.6 10^3/uL (4.0-10.5)
[2018-09-29] MEDS: LANSOPRAZOLE 30 MG TAB.RAP.DR PO SCH (05:16)
[2018-09-29] MEDS: DILTIAZEM HCL 60 MG TABLET PO SCH ×3 (05:16→21:50)
[2018-09-29] MEDS ORDERED: DEXTROSE 5%-1/2 NORMAL SALINE 1,000 ML IV PRN (08:41)
[2018-09-29] MEDS ORDERED: LIDOCAINE 2% INJ-PF (20 MG/ML) 10 ML AMPUL ONE (08:54)
[2018-09-29] MEDS ORDERED: PROPOFOL INJ 200 MG/20 ML VIAL IV ONE (08:54)
[2018-09-29] MEDS ORDERED: MIDAZOLAM 2 MG/2 ML INJ ONE (08:54)
--- NOTE | 2018-09-29 09:01 | PDOC PROGRESS REPORT ---
Subjective Progress Note for:: 09/29/18 Subjective:: AMELIA BOB is a 68 year old male with a PMH of chronic atrial fibrillation on Eliquis, COPD not on home O2, history of hypertension and hypothyroidism (now off medications for both), HALLIE not compliant on CPAP and opiate dependence for chronic low back and joint pains from osteoarthritis who presented with multiple BM after a bowel prep, weakness and hypotension with a BP of 69/57. Patient was given fluid boluses but eventually required vasopressor. He did have another large watery BM today. No other acute event overnight however patient continued to Levophed. Patient does have history of chronic atrial fibrillation and heart rate is running in the 120s this morning but this did improve down to 80s after switching Levophed to Gaurva-Synephrine and resuming lopressor. 09/23/18: Patient also takes short acting and long-acting oxycodone at home. He is having some tremors and complains he may be withdrawing from his opiates. Explained that I do not recommend resuming the long-acting oxycodone at this time as he continues to require pressor. We will resume short acting oxycodone as needed. He denies any other acute complaints and denies chest pain or shortness of breath. No nausea, vomiting or diarrhea. No fever or chills. He will be getting another liter of fluid bolus. He is saturating well on room air. 09/24/18: No acute event overnight. Patient had one loose, non bloody BM today but is less and is slightly better formed from yesterday. Neosynephrine is also being weaned down today. He is having less shaking and tremors. Denies chest pa in or SOB. 09/25/18: No acute event overnight. Patient was weaned off neosynephrine overnight. He had a BM today and stools were soft and is close to his baseline. He has chronic Afib and HR this afternoon went into the 150s even with oral lopressor and a single dose of oral cardizem. Blood pressure is table in the 110/80s. He denies chest pain or SOB. He will be started on a cardizem drip. 09/26/2018-no acute events overnight. He does not have any loose bowel movements anymore. He is on A. fib on heparin drip be stopped heparin drip was [facility]. He is going for EGD and colonoscopy tomorrow. He is comfortably in the bed denies any complaints. 09/27/2018-no acute events overnight patient is afebrile. Heparin was drip was discontinued yesterday started back on Eliquis 5 mg p.o. twice daily. She is going for EGD and colonoscopy today. To be n.p.o. from this morning. pt is comfortably in the sleeping in bed woke up on calling denies any complaints. 09/28/2018-no acute events overnight patient is afebrile. The blood pressure today is 102/64. Patient is asymptomatic. She is going for EGD and colonoscopy today. Eliquis on hold. 09/29/2018 no acute events in the last 24 hours. Patient is afebrile. Yesterday because of the LACK OFF IV access patient is unable to have a EGD or colonoscopy. Anesthesiologist unable to GET IV access so we called the surgeon because of heavy schedule he came very late last night to put a central line. We started pt on heparin drip it was discontinued at 4 AM today due to the fact that patient was scheduled for EGD at 10 AM today .patient's heparin drip as a bridge because of the chronic atrial fibrillation on Eliquis which is on hold after the EGD and colonoscopy we are going to start the Eliquis back 5 mg p.o. twice daily ,first dose will be given tonight. Reason For Visit: HYPOVOLEMIC SHOCK Physical Exam Vital Signs: Temp Pulse Resp BP Pulse Ox 98.1 F 86 15 106/73 94 09/29/18 03:32 09/29/18 07:00 09/29/18 03:32 09/29/18 03:32 09/29/18 03:32 Intake & Output 09/28/18 09/29/18 09/30/18 06:59 06:59 06:59 Intake Total 522 1228 Output Total 1300 720 Balance -778 508 Weight 139 kg 138.1 kg General appearance: PRESENT: no acute distress Head exam: PRESENT: atraumatic Eye exam: PRESENT: PERRLA Mouth exam: PRESENT: moist, tongue midline Teeth exam: PRESENT: poor dentation Neck exam: ABSENT: carotid bruit, JVD, lymphadenopathy, thyromegaly Respiratory exam: PRESENT: crackles, decreased breath sounds Cardiovascular exam: PRESENT: irregular rhythm, systolic murmur, tachycardia GI/Abdominal exam: PRESENT: normal bowel sounds, soft. ABSENT: tenderness Extremities exam: PRESENT: +2 edema Neurological exam: PRESENT: alert, awake, oriented to person, oriented to place, oriented to time, oriented to situation, CN II-XII grossly intact. ABSENT: motor sensory deficit Psychiatric exam: PRESENT: appropriate affect, normal mood. ABSENT: homicidal ideation, suicidal ideation Results Laboratory Results: 09/29/18 04:15 09/28/18 04:05 09/28/18 09/28/18 09/28/18 16:30 17:32 22:05 WBC Cancelled 5.0 RBC Cancelled 3.52 L Hgb Cancelled 11.1 L Hct Cancelled 33.4 L MCV Cancelled 95 MCH Cancelled 31.5 MCHC Cancelled 33.2 RDW Cancelled 14.8 H Plt Count Cancelled 215 Seg Neutrophils % Cancelled 57.3 Lymphocytes % Cancelled 30.9 Monocytes % Cancelled 8.4 Eosinophils % Cancelled 2.7 Basophils % Cancelled 0.7 Absolute Neutrophils Cancelled 2.8 Absolute Lymphocytes Cancelled 1.5 Absolute Monocytes Cancelled 0.4 Absolute Eosinophils Cancelled 0.1 Absolute Basophils Cancelled 0.0 Urine Color YELLOW Urine Appearance CLEAR Urine pH 5.0 Ur Specific [place] 1.009 Urine Protein NEGATIVE Urine Glucose (UA) NEGATIVE Urine Ketones NEGATIVE Urine Blood NEGATIVE Urine Nitrite NEGATIVE Ur Leukocyte Esterase NEGATIVE Urine WBC (Auto) 1 Urine RBC (Auto) 0 09/29/18 04:15 WBC 4.6 RBC 3.06 L Hgb 9.7 L Hct 28.8 L MCV 94 MCH 31.7 MCHC 33.7 RDW 15.0 H Plt Count 182 Seg Neutrophils % Lymphocytes % Monocytes % Eosinophils % Basophils % Absolute Neutrophils Absolute Lymphocytes Absolute Monocytes Absolute Eosinophils Absolute Basophils Urine Color Urine Appearance Urine pH Ur Specific [place] Urine Protein Urine Glucose (UA) Urine Ketones Urine Blood Urine Nitrite Ur Leukocyte Esterase Urine WBC (Auto) Urine RBC (Auto) 09/22/18 10:59 CK-MB (CK-2) 1.15 Troponin I < 0.012 Impressions: Knee X-Ray 09/22/18 09:29 IMPRESSION: Potential quadriceps tendon injury. Correlate clinically. Head CT 09/25/18 17:48 IMPRESSION: CHRONIC CHANGES OF ATROPHY AND MICROVASCULAR ISCHEMIA. NO ACUTE PROCESS. EVIDENCE OF ACUTE STROKE: NO. Chest X-Ray 09/28/18 00:00 IMPRESSION: Cardiomegaly. Tip of the central line in the SVC. No pneumothorax Underlying COPD. copyright 2010 [employer]- All Rights Reserved Assessment & Plan - Diagnosis (1) Hypovolemic shock Is this a current diagnosis for this admission?: Yes Plan: Resolved. Weaned off Gaurav-Synephrine overnight. Hypotension is more likely related to severe volume depletion from GI losses with his opiate intake contributing to the hypotension. No leukocytosis, fever or clinical signs of infection or sepsis aside from pyuria on UA. No signs or symptoms of bleeding. Blood culture has been negative so far. 09/26/2018-patient blood pressure today is 118/80. He is off Gaurav-Synephrine. I am going to discontinue his IV fluids. Hypovolemic shock is resolved. Hypovolemic shock most likely secondary to GI losses with the opioid intake. 09/27/2018-blood pressure today is 131/90 with pulse rate of 98. Hypovolemic shock is resolved. IV fluids were discontinued yesterday. Hypokalemia most likely secondary to GI losses with opioid intake. Patient is stable enough to go to the [facility] after the EGD and colonoscopy. 09/28/2018-blood pressure today is 102/64 with pulse rate of 1078 patient is still in atrial fibrillation. He is on p.o. Cardizem 60 mg every 8 hours. [facility] is going for EGD colonoscopy today. Once he comes back from a EGD colonoscopy will going to put him back on Eliquis. 09/29/2018-hypovolemic shock was resolved patient blood pressure today is 106/73. He is on. P.o. Cardizem 60 mg every 8 hours also on metoprolol as needed for rate control of atrial fibrillation. Patient is afebrile. Presently he is on D5 half-normal saline at 50 cc/h with IV fluids started last night because of the low glucose. Patient is asymptomatic. (2) Chronic atrial fibrillation Is this a current diagnosis for this admission?: Yes Plan: Currently on heparin drip. He has chronic Afib and HR this afternoon went into the 150s even with oral lopressor and a single dose of oral cardizem. Blood pressure is table in the 110/80s. He denies chest pain or SOB. He will be started on a cardizem drip. 09/26/2018-patient is on Eliquis 5 mg p.o. twice daily at home, at present he is on heparin drip going to turn of the heparin drip and start on Eliquis from [facility]. Patient still in A. fib with heart rate is around 110-120s. 100 and Cardizem 60 mg p.o. every 8 hours. 09/27/2017-patient still in atrial fibrillation heart rate is around 80-90. He is on Eliquis 5 mg p.o. twice daily. He was also on diltiazem 60 mg p.o. every 8 hours. pt is off the Cardizem drip since yesterday. 09/28/2018-patient still in A. fib with heart rate of 107 p.o. medication on hold for EGD today. Be going to put him back on his Cardizem and Eliquis once he came back from the procedure. Patient is asymptomatic alert and oriented communicating very well. 09/29/2018 patient has history of chronic atrial fibrillation on Eliquis 5 mg p.o. twice daily. Eliquis was on hold , patient was on a heparin drip until 4 AM this morning. We stopped heparin drip because the patient is going for EGD around 10 AM today. Eliquis will be started back this evening. (3) Obesity (BMI 35.0-39.9 without comorbidity) Is this a current diagnosis for this admission?: Yes Plan: 09/27/2018-patient's BMI is more than 40.0 diet exercise weight loss and lifestyle modifications are advised and discussed with the patient dietary consult was requested. 09/28/2018-patient's BMI is more than 40-dietary consult was done. 09/29/2018-patient's BMI is more than 40 diet exercise weight loss lifestyle modification were advised and discussed with the patient dietary consult was requested. (4) UTI (urinary tract infection) Is this a current diagnosis for this admission?: Yes Plan: 09/29/2018 patient has a UTI urine culture shows E. coli patient is on IV Rocephin daily. - Time Time Spent with patient: 15-24 minutes Medications reviewed and adjusted accordingly: Yes Anticipated discharge: Home
[2018-09-29] MEDS ORDERED: APIXABAN 5 MG TABLET PO SCH (10:00)
[2018-09-29] MEDS: APIXABAN 5 MG TABLET PO SCH ×2 (10:26→17:35)
[2018-09-29] MEDS: CEFTRIAXONE 1 GM/D5W RTU 1 GM/50 ML RTUPB IV SCH (10:30)
[2018-09-29] MEDS ORDERED: DIPHENHYDRAMINE HCL 50 MG/ML VIAL IV PRN (11:23)
[2018-09-29] MEDS ORDERED: MEPERIDINE HCL/PF INJ 25 MG/1 ML DISP.SYRIN IV PRN (11:23)
[2018-09-29] MEDS ORDERED: PROMETHAZINE HCL INJ 25 MG/1 ML VIAL IV PRN ×2 (11:23)
--- NOTE | 2018-09-29 12:08 | Operative Report ---
Operative Report DATE OF SURGERY: 09/29/18 Operative Report: The risks, benefits and alternatives of the procedure including the risks of bleeding, perforation requiring surgery have been explained to the patient in detail and informed consent was obtained. Patient is brought back to the operating room and placed in the left, lateral decubital position. Timeout was called. Propofol medication is administered. Rectal examination is done which did not reveal any masses, tears or fissures. An Olympus videoscope was introduced into the patient's rectum. The scope was then carefully advanced all the way to the cecum. The cecum was identified by the usual anatomical landmarks including the ileocecal valve as well as the appendiceal office. Prep on the right side of the colon is not good. Scope was then sequentially pulled back via the various segments of the colon including the ascending colon, hepatic flexure, transverse colon, splenic flexure, descending colon and finally into the rectosigmoid portions of the colon. Retroflexion maneuver is performed. The risks benefits and alternatives of the procedure explained to the patient in detail and informed consent is obtained.A GIF Olympus video scope was inserted into the patient's mouth and hypopharynx, the esophagus is identified intubated and insufflated, the scope was then advanced through the esophagus stomach and duodenum, retroflexion maneuver is done, the esophagus stomach and first and second portions of the duodenum examined. PREOPERATIVE DIAGNOSIS: Anemia, change in bowel habits POSTOPERATIVE DIAGNOSIS: Duodenal ulcer, clean base but at high risk for bleeding. Status post biopsy rule out Helicobacter pylori. Right colon inflammation status post biopsy. Internal hemorrhoids OPERATION: Colonoscopy with biopsy. EGD with biopsy SURGEON: GIACOMO RICHARDS ANESTHESIA: LMAC TISSUE REMOVED OR ALTERED: As noted above. COMPLICATIONS: None. ESTIMATED BLOOD LOSS: None. INTRAOPERATIVE FINDINGS: As noted above. PROCEDURE: Patient tolerated procedure well. No immediate postprocedure complications are noted. Patient sent back to his room in good condition. Resume previous diet and activity level. Patient does have an ulcer which is at high risk for bleeding. He does need anticoagulation. I suspect that he will be having a GI bleed with continued use of anticoagulation. He will need PPI therapy We will to discontinue his anticoagulation for now, allow the ulcer to heal up and then restart.
[2018-09-29 14:53] LABS: ALANINE AMINOTRANSFERASE 43 U/L (21-72); ALBUMIN 1.9 g/dL (3.5-5.0); ALKALINE PHOSPHATASE 67 U/L (38-126); ASPARTATE AMINO TRANSFERASE 24 U/L (17-59); BILIRUBIN,DIRECT 0.3 mg/dL (0.0-0.4); BILIRUBIN,TOTAL 0.4 mg/dL (0.2-1.3); BLOOD UREA NITROGEN 6 mg/dL (7-20); CARBON DIOXIDE 27 mmol/L (22-30); CHLORIDE 108 mmol/L (98-107); GLUCOSE 85 mg/dL (75-110); POTASSIUM 3.9 mmol/L (3.6-5.0); TOTAL PROTEIN 4.1 g/dL (6.3-8.2)
[2018-09-29 14:58] LABS: SODIUM 138.4 mmol/L (137-145)
[2018-09-29 15:01] LABS: ANION GAP 3 (5-19)
[2018-09-29] MEDS: METOPROLOL TARTRATE PF/INJ 5 MG/5 ML SDV IV PRN (17:33)
[2018-09-29] MEDS: GABAPENTIN 300 MG CAPSULE PO SCH (21:50)
[2018-09-30] MEDS: OXYCODONE HCL IR 5 MG TABLET PO PRN ×6 (02:09→22:20)
[2018-09-30] MEDS: LANSOPRAZOLE 30 MG TAB.RAP.DR PO SCH (06:04)
[2018-09-30] MEDS: DILTIAZEM HCL 60 MG TABLET PO SCH ×3 (06:05→22:20)
--- NOTE | 2018-09-30 07:59 | PDOC PROGRESS REPORT ---
Subjective Progress Note for:: 09/30/18 Subjective:: AMELIA BOB is a 68 year old male with a PMH of chronic atrial fibrillation on Eliquis, COPD not on home O2, history of hypertension and hypothyroidism (now off medications for both), HALLIE not compliant on CPAP and opiate dependence for chronic low back and joint pains from osteoarthritis who presented with multiple BM after a bowel prep, weakness and hypotension with a BP of 69/57. Patient was given fluid boluses but eventually required vasopressor. He did have another large watery BM today. No other acute event overnight however patient continued to Levophed. Patient does have history of chronic atrial fibrillation and heart rate is running in the 120s this morning but this did improve down to 80s after switching Levophed to Gaurav-Synephrine and resuming lopressor. 09/23/18: Patient also takes short acting and long-acting oxycodone at home. He is having some tremors and complains he may be withdrawing from his opiates. Explained that I do not recommend resuming the long-acting oxycodone at this time as he continues to require pressor. We will resume short acting oxycodone as needed. He denies any other acute complaints and denies chest pain or shortness of breath. No nausea, vomiting or diarrhea. No fever or chills. He will be getting another liter of fluid bolus. He is saturating well on room air. 09/24/18: No acute event overnight. Patient had one loose, non bloody BM today but is less and is slightly better formed from yesterday. Neosynephrine is also being weaned down today. He is having less shaking and tremors. Denies chest pa in or SOB. 09/25/18: No acute event overnight. Patient was weaned off neosynephrine overnight. He had a BM today and stools were soft and is close to his baseline. He has chronic Afib and HR this afternoon went into the 150s even with oral lopressor and a single dose of oral cardizem. Blood pressure is table in the 110/80s. He denies chest pain or SOB. He will be started on a cardizem drip. 09/26/2018-no acute events overnight. He does not have any loose bowel movements anymore. He is on A. fib on heparin drip be stopped heparin drip was started on Eliquis from tonight. He is going for EGD and colonoscopy tomorrow. He is comfortably in the bed denies any complaints. 09/27/2018-no acute events overnight patient is afebrile. Heparin was drip was discontinued yesterday started back on Eliquis 5 mg p.o. twice daily. She is going for EGD and colonoscopy today. To be n.p.o. from this morning. pt is comfortably in the sleeping in bed woke up on calling denies any complaints. 09/28/2018-no acute events overnight patient is afebrile. The blood pressure today is 102/64. Patient is asymptomatic. She is going for EGD and colonoscopy today. Eliquis on hold. 09/29/2018 no acute events in the last 24 hours. Patient is afebrile. Yesterday because of the LACK OFF IV access patient is unable to have a EGD or colonoscopy. Anesthesiologist unable to GET IV access so we called the surgeon because of heavy schedule he came very late last night to put a central line. We started pt on heparin drip it was discontinued at 4 AM today due to the fact that patient was scheduled for EGD at 10 AM today .patient's heparin drip as a bridge because of the chronic atrial fibrillation on Eliquis which is on hold after the EGD and colonoscopy we are going to start the Eliquis back 5 mg p.o. twice daily ,first dose will be given tonight. 09/30/2018 no acute events in the last 24 hours. T-max is 98.1. Patient had a EGD done yesterday. Dr. Campbell's impression is patient has a duodenal ulcer with a clean base by a high risk of bleeding. I discussed the plan with the patient and explained about the risk of bleeding if he is on Eliquis but at the same time if he stops Eliquis there is a risk of a stroke. Patient prefers to continue Eliquis. Nurse is telling me patient has difficulty in coming out of the bed and also difficulty in ambulation and abnormality of the gait ,I am going to request for a physical therapy consult today. Reason For Visit: HYPOVOLEMIC SHOCK Physical Exam Vital Signs: Temp Pulse Resp BP Pulse Ox 98.1 F 91 20 112/59 L 95 09/30/18 04:10 09/30/18 04:10 09/30/18 04:10 09/30/18 04:10 09/30/18 04:10 Intake & Output 09/29/18 09/30/18 10/01/18 06:59 06:59 06:59 Intake Total 1228 1950 Output Total 720 0 Balance 508 1950 Weight 138.1 kg 139.7 kg General appearance: PRESENT: no acute distress, morbidly obese Head exam: PRESENT: atraumatic Eye exam: PRESENT: PERRLA Mouth exam: PRESENT: moist Neck exam: PRESENT: carotid bruit Respiratory exam: PRESENT: clear to auscultation almaz. ABSENT: rales, rhonchi, wheezes Cardiovascular exam: PRESENT: irregular rhythm GI/Abdominal exam: PRESENT: normal bowel sounds, soft. ABSENT: tenderness Extremities exam: PRESENT: +2 edema Neurological exam: PRESENT: alert, awake, oriented to person, oriented to place, oriented to time, oriented to situation, CN II-XII grossly intact. ABSENT: motor sensory deficit Psychiatric exam: PRESENT: appropriate affect, normal mood. ABSENT: homicidal ideation, suicidal ideation Results Laboratory Results: 09/29/18 04:15 09/29/18 08:42 09/29/18 08:42 Sodium 138.4 Potassium 3.9 Chloride 108 H Carbon Dioxide 27 Anion Gap 3 L BUN 6 L Creatinine 0.76 Est GFR ( Amer) > 60 Est GFR (Non-Af Amer) > 60 Glucose 85 Calcium 8.0 L Magnesium 1.7 Total Bilirubin 0.4 AST 24 ALT 43 Alkaline Phosphatase 67 Total Protein 4.1 L Albumin 1.9 L 09/22/18 10:59 CK-MB (CK-2) 1.15 Troponin I < 0.012 Impressions: Knee X-Ray 09/22/18 09:29 IMPRESSION: Potential quadriceps tendon injury. Correlate clinically. Head CT 09/25/18 17:48 IMPRESSION: CHRONIC CHANGES OF ATROPHY AND MICROVASCULAR ISCHEMIA. NO ACUTE PROCESS. EVIDENCE OF ACUTE STROKE: NO. Chest X-Ray 09/28/18 00:00 IMPRESSION: Cardiomegaly. Tip of the central line in the SVC. No pneumothorax Underlying COPD. copyright 2010 [employer]- All Rights Reserved Assessment & Plan - Diagnosis (1) Hypovolemic shock Is this a current diagnosis for this admission?: Yes Plan: Resolved. Weaned off Gaurav-Synephrine overnight. Hypotension is more likely related to severe volume depletion from GI losses with his opiate intake contributing to the hypotension. No leukocytosis, fever or clinical signs of infection or sepsis aside from pyuria on UA. No signs or symptoms of bleeding. Blood culture has been negative so far. 09/26/2018-patient blood pressure today is 118/80. He is off Gaurav-Synephrine. I am going to discontinue his IV fluids. Hypovolemic shock is resolved. Hypovolemic shock most likely secondary to GI losses with the opioid intake. 09/27/2018-blood pressure today is 131/90 with pulse rate of 98. Hypovolemic shock is resolved. IV fluids were discontinued yesterday. Hypokalemia most likely secondary to GI losses with opioid intake. Patient is stable enough to go to the [facility] after the EGD and colonoscopy. 09/28/2018-blood pressure today is 102/64 with pulse rate of 1078 patient is still in atrial fibrillation. He is on p.o. Cardizem 60 mg every 8 hours. Patient is going for EGD colonoscopy today. Once he comes back from a EGD colonoscopy will going to put him back on Eliquis. 09/29/2018-hypovolemic shock was resolved patient blood pressure today is 106/73. He is on. P.o. Cardizem 60 mg every 8 hours also on metoprolol as needed for rate control of atrial fibrillation. Patient is afebrile. Presently he is on D5 half-normal saline at 50 cc/h with IV fluids started last night because of the low glucose. Patient is asymptomatic. 09/30/2018-patient's blood pressure is 112/60 with a pulse rate of 91. He is on a D5 half-normal saline at 50 cc/h. Asymptomatic. Hypovolemic shock is resolved. urine culture is positive for E. coli he is going to complete 7 days of IV antibiotic therapy today. Plan for today is to stop the IV fluids and discontinue the antibiotics this evening. Patient's WBC count is 4600. Blood cultures are negative stool culture is negative for Shigella and salmonella. (2) Chronic atrial fibrillation Is this a current diagnosis for this admission?: Yes Plan: Currently on heparin drip. He has chronic Afib and HR this afternoon went into the 150s even with oral lopressor and a single dose of oral cardizem. Blood pressure is table in the 110/80s. He denies chest pain or SOB. He will be started on a cardizem drip. 09/26/2018-patient is on Eliquis 5 mg p.o. twice daily at home, at present he is on heparin drip going to turn of the heparin drip and start on Eliquis from [facility]. Patient still in A. fib with heart rate is around 110-120s. 100 and Cardizem 60 mg p.o. every 8 hours. 09/27/2017-patient still in atrial fibrillation heart rate is around 80-90. He is on Eliquis 5 mg p.o. twice daily. He was also on diltiazem 60 mg p.o. every 8 hours. pt is off the Cardizem drip since yesterday. 09/28/2018-patient still in A. fib with heart rate of 107 p.o. medication on hold for EGD today. Be going to put him back on his Cardizem and Eliquis once he came back from the procedure. Patient is asymptomatic alert and oriented communicating very well. 09/29/2018 patient has history of chronic atrial fibrillation on Eliquis 5 mg p.o. twice daily. Eliquis was on hold , patient was on a heparin drip until 4 AM this morning. We stopped heparin drip because the patient is going for EGD around 10 AM today. Eliquis will be started back this evening. 09/30/2018 patient has a chronic atrial fibrillation on Eliquis 5 mg p.o. twice daily Eliquis was started last night after the EGD was done. Plan to continue Eliquis 5 mg p.o. twice daily (3) Obesity (BMI 35.0-39.9 without comorbidity) Is this a current diagnosis for this admission?: Yes Plan: 09/27/2018-patient's BMI is more than 40.0 diet exercise weight loss and lifestyle modifications are advised and discussed with the patient dietary consult was requested. 09/28/2018-patient's BMI is more than 40-dietary consult was done. 09/29/2018-patient's BMI is more than 40 diet exercise weight loss lifestyle modification were advised and discussed with the patient dietary consult was re quested. 09/30/2018 patient's BMI is more than 40 diet exercise weight loss was advised under dietary consult was requested. (4) UTI (urinary tract infection) Is this a current diagnosis for this admission?: Yes Plan: 09/29/2018 patient has a UTI urine culture shows E. coli patient is on IV Rocephin daily. 09/30/2018 E. coli in the urine pt is going to complete 7 days course of IV antibiotic therapy today. (5) Hypoalbuminemia Is this a current diagnosis for this admission?: Yes Plan: 09/30/2018-albumin level is 1.9. I requested for albumin 50% IV 1 dose dietitian was consult was requested probably he need high protein diet. - Time Time Spent with patient: 15-24 minutes Medications reviewed and adjusted accordingly: Yes Anticipated discharge: Home
[2018-09-30] MEDS: ALBUMIN HUMAN 12.5 GM/50 ML RTUINJ IV SCH ×4 (10:20→13:10)
[2018-09-30] MEDS: APIXABAN 5 MG TABLET PO SCH ×2 (10:21→17:41)
[2018-09-30] MEDS: MAGNESIUM OXIDE 400 MG TABLET PO SCH (10:21)
[2018-09-30] MEDS: GABAPENTIN 300 MG CAPSULE PO SCH (22:20)
[2018-10-01] MEDS: OXYCODONE HCL IR 5 MG TABLET PO PRN ×6 (02:24→23:45)
[2018-10-01] MEDS: DILTIAZEM HCL 60 MG TABLET PO SCH (06:42)
[2018-10-01] MEDS: LANSOPRAZOLE 30 MG TAB.RAP.DR PO SCH (06:45)
[2018-10-01 07:07] LABS: ABSOLUTE EOSINOPHILS # (AUTO) 0.2 10^3/uL (0.0-0.6); ABSOLUTE LYMPHOCYTES (AUTO) 1.7 10^3/uL (0.5-4.7); ABSOLUTE MONOCYTES (AUTO) 0.5 10^3/uL (0.1-1.4); ABSOLUTE NEUT (AUTO) 2.3 10^3/uL (1.7-8.2); EOSINOPHILS % (AUTO) 3.7 % (0-6); HEMATOCRIT 30.7 % (37.9-51.0); HEMOGLOBIN 10.3 g/dL (13.5-17.0); LYMPHOCYTES % (AUTO) 36.8 % (13-45); MEAN CORPUSCULAR HEMOGLOBIN 31.8 pg (27.0-33.4); MEAN CORPUSCULAR HGB CONC 33.5 g/dL (32.0-36.0); MEAN CORPUSCULAR VOLUME 95 fl (80-97); MONOCYTES % (AUTO) 10.5 % (3-13); PLATELET COUNT 194 10^3/uL (150-450); RED BLOOD COUNT 3.24 10^6/uL (4.35-5.55); RED CELL DISTRIBUTION WIDTH 15.5 % (11.5-14.0); TOTAL CELLS COUNTED % (AUTO) 100 %; WHITE BLOOD COUNT 4.7 10^3/uL (4.0-10.5)
[2018-10-01 07:23] LABS: ALANINE AMINOTRANSFERASE 41 U/L (21-72); ALBUMIN 2.1 g/dL (3.5-5.0); ALKALINE PHOSPHATASE 59 U/L (38-126); ASPARTATE AMINO TRANSFERASE 23 U/L (17-59); BILIRUBIN,DIRECT 0.3 mg/dL (0.0-0.4); BILIRUBIN,TOTAL 0.4 mg/dL (0.2-1.3); BLOOD UREA NITROGEN 5 mg/dL (7-20); CHLORIDE 108 mmol/L (98-107); GLUCOSE 93 mg/dL (75-110); TOTAL PROTEIN 4.1 g/dL (6.3-8.2)
[2018-10-01 07:28] LABS: CARBON DIOXIDE 30 mmol/L (22-30); SODIUM 139.6 mmol/L (137-145)
[2018-10-01 07:31] LABS: ANION GAP 2 (5-19)
--- NOTE | 2018-10-01 07:35 | PDOC PROGRESS REPORT ---
Subjective Progress Note for:: 10/01/18 Subjective:: AMELIA BOB is a 68 year old male with a PMH of chronic atrial fibrillation on Eliquis, COPD not on home O2, history of hypertension and hypothyroidism (now off medications for both), HALLIE not compliant on CPAP and opiate dependence for chronic low back and joint pains from osteoarthritis who presented with multiple BM after a bowel prep, weakness and hypotension with a BP of 69/57. Patient was given fluid boluses but eventually required vasopressor. He did have another large watery BM today. No other acute event overnight however patient continued to Levophed. Patient does have history of chronic atrial fibrillation and heart rate is running in the 120s this morning but this did improve down to 80s after switching Levophed to Gaurav-Synephrine and resuming lopressor. 09/23/18: Patient also takes short acting and long-acting oxycodone at home. He is having some tremors and complains he may be withdrawing from his opiates. Explained that I do not recommend resuming the long-acting oxycodone at this time as he continues to require pressor. We will resume short acting oxycodone as needed. He denies any other acute complaints and denies chest pain or shortness of breath. No nausea, vomiting or diarrhea. No fever or chills. He will be getting another liter of fluid bolus. He is saturating well on room air. 09/24/18: No acute event overnight. Patient had one loose, non bloody BM today but is less and is slightly better formed from yesterday. Neosynephrine is also being weaned down today. He is having less shaking and tremors. Denies chest pa in or SOB. 09/25/18: No acute event overnight. Patient was weaned off neosynephrine overnight. He had a BM today and stools were soft and is close to his baseline. He has chronic Afib and HR this afternoon went into the 150s even with oral lopressor and a single dose of oral cardizem. Blood pressure is table in the 110/80s. He denies chest pain or SOB. He will be started on a cardizem drip. 09/26/2018-no acute events overnight. He does not have any loose bowel movements anymore. He is on A. fib on heparin drip be stopped heparin drip was started on Eliquis from tonight. He is going for EGD and colonoscopy tomorrow. He is comfortably in the bed denies any complaints. 09/27/2018-no acute events overnight patient is afebrile. Heparin was drip was discontinued yesterday started back on Eliquis 5 mg p.o. twice daily. She is going for EGD and colonoscopy today. To be n.p.o. from this morning. pt is comfortably in the sleeping in bed woke up on calling denies any complaints. 09/28/2018-no acute events overnight patient is afebrile. The blood pressure today is 102/64. Patient is asymptomatic. She is going for EGD and colonoscopy today. Eliquis on hold. 09/29/2018 no acute events in the last 24 hours. Patient is afebrile. Yesterday because of the LACK OFF IV access patient is unable to have a EGD or colonoscopy. Anesthesiologist unable to GET IV access so we called the surgeon because of heavy schedule he came very late last night to put a central line. We started pt on heparin drip it was discontinued at 4 AM today due to the fact that patient was scheduled for EGD at 10 AM today .patient's heparin drip as a bridge because of the chronic atrial fibrillation on Eliquis which is on hold after the EGD and colonoscopy we are going to start the Eliquis back 5 mg p.o. twice daily ,first dose will be given tonight. 09/30/2018 no acute events in the last 24 hours. T-max is 98.1. Patient had a EGD done yesterday. Dr. Campbell's impression is patient has a duodenal ulcer with a clean base by a high risk of bleeding. I discussed the plan with the patient and explained about the risk of bleeding if he is on Eliquis but at the same time if he stops Eliquis there is a risk of a stroke. Patient prefers to continue Eliquis. Nurse is telling me patient has difficulty in coming out of the bed and also difficulty in ambulation and abnormality of the gait ,I am going to request for a physical therapy consult today. 2018 patient is comfortable in the bed communicating very well dietitian came yesterday to talk to the patient because of albumin of 1.9 her recommendation is [place] yogurt at 10 AM Magic cup with snacks and no pressures ulcers are documented. He still have a 2+ pedal edema. He got a 50% albumin yesterday 1 dose. Physical therapy consult was requested because patient is not out of the bed since the admission and we want to see if you need any home health with physical therapy. Hopefully they come today. Reason For Visit: HYPOVOLEMIC SHOCK Physical Exam Vital Signs: Temp Pulse Resp BP Pulse Ox 98.2 F 122 H 18 95/61 L 90 L 10/01/18 04:15 10/01/18 04:15 10/01/18 04:15 10/01/18 04:15 10/01/18 04:15 Intake & Output 09/30/18 10/01/18 10/02/18 06:59 06:59 06:59 Intake Total 1950 1207 Output Total 0 1050 Balance 1950 157 Weight 139.7 kg 139.3 kg General appearance: PRESENT: no acute distress Head exam: PRESENT: atraumatic Eye exam: PRESENT: PERRLA Mouth exam: PRESENT: moist Neck exam: ABSENT: carotid bruit, JVD, lymphadenopathy, thyromegaly Respiratory exam: PRESENT: clear to auscultation almaz. ABSENT: rales, rhonchi, wheezes Cardiovascular exam: PRESENT: irregular rhythm GI/Abdominal exam: PRESENT: normal bowel sounds, soft. ABSENT: distended, guarding, mass, organolmegaly, rebound, tenderness Extremities exam: PRESENT: +2 edema Neurological exam: PRESENT: alert, awake, oriented to person, oriented to place, oriented to time, oriented to situation, CN II-XII grossly intact. ABSENT: motor sensory deficit Psychiatric exam: PRESENT: appropriate affect, normal mood. ABSENT: homicidal ideation, suicidal ideation Results Laboratory Results: 10/01/18 06:45 10/01/18 06:45 WBC 4.7 RBC 3.24 L Hgb 10.3 L Hct 30.7 L MCV 95 MCH 31.8 MCHC 33.5 RDW 15.5 H Plt Count 194 Seg Neutrophils % 48.0 Lymphocytes % 36.8 Monocytes % 10.5 Eosinophils % 3.7 Basophils % 1.0 Absolute Neutrophils 2.3 Absolute Lymphocytes 1.7 Absolute Monocytes 0.5 Absolute Eosinophils 0.2 Absolute Basophils 0.0 09/22/18 09/30/18 10:59 06:00 CK-MB (CK-2) 1.15 Troponin I < 0.012 NT-Pro-B Natriuret Pep 1960 H Impressions: Knee X-Ray 09/22/18 09:29 IMPRESSION: Potential quadriceps tendon injury. Correlate clinically. Head CT 09/25/18 17:48 IMPRESSION: CHRONIC CHANGES OF ATROPHY AND MICROVASCULAR ISCHEMIA. NO ACUTE PROCESS. EVIDENCE OF ACUTE STROKE: NO. Chest X-Ray 09/28/18 00:00 IMPRESSION: Cardiomegaly. Tip of the central line in the SVC. No pneumothorax Underlying COPD. copyright 2010 [email or web address]- All Rights Reserved Assessment & Plan - Diagnosis (1) Hypovolemic shock Is this a current diagnosis for this admission?: Yes Plan: Resolved. Weaned off Gaurav-Synephrine overnight. Hypotension is more likely related to severe volume depletion from GI losses with his opiate intake contributing to the hypotension. No leukocytosis, fever or clinical signs of infection or sepsis aside from pyuria on UA. No signs or symptoms of bleeding. Blood culture has been negative so far. 09/26/2018-patient blood pressure today is 118/80. He is off Gaurav-Synephrine. I am going to discontinue his IV fluids. Hypovolemic shock is resolved. Hypovolemic shock most likely secondary to GI losses with the opioid intake. 09/27/2018-blood pressure today is 131/90 with pulse rate of 98. Hypovolemic shock is resolved. IV fluids were discontinued yesterday. Hypokalemia most likely secondary to GI losses with opioid intake. Patient is stable enough to go to the [facility] after the EGD and colonoscopy. 09/28/2018-blood pressure today is 102/64 with pulse rate of 1078 patient is still in atrial fibrillation. He is on p.o. Cardizem 60 mg every 8 hours. Patient is going for EGD colonoscopy today. Once he comes back from a EGD colonoscopy will going to put him back on Eliquis. 09/29/2018-hypovolemic shock was resolved patient blood pressure today is 106/73. He is on. P.o. Cardizem 60 mg every 8 hours also on metoprolol as needed for rate control of atrial fibrillation. Patient is afebrile. Presently he is on D5 half-normal saline at 50 cc/h with IV fluids started last night because of the low glucose. Patient is asymptomatic. 09/30/2018-patient's blood pressure is 112/60 with a pulse rate of 91. He is on a D5 half-normal saline at 50 cc/h. Asymptomatic. Hypovolemic shock is resolved. urine culture is positive for E. coli he is going to complete 7 days of IV antibiotic therapy today. Plan for today is to stop the IV fluids and discontinue the antibiotics this evening. Patient's WBC count is 4600. Blood cultures are negative stool culture is negative for Shigella and salmonella. 10/01/2018-patient blood pressure is 795/61 but manual is 116/80 patient is asymptomatic. Only medication is pt on Cardizem 60 mg p.o. every 8 hours for his atrial fibrillation. he Is off the IV fluids. (2) Chronic atrial fibrillation Is this a current diagnosis for this admission?: Yes Plan: Currently on heparin drip. He has chronic Afib and HR this afternoon went into the 150s even with oral lopressor and a single dose of oral cardizem. Blood pressure is table in the 110/80s. He denies chest pain or SOB. He will be started on a cardizem drip. 09/26/2018-patient is on Eliquis 5 mg p.o. twice daily at home, at present he is on heparin drip going to turn of the heparin drip and start on Eliquis from health system. Patient still in A. fib with heart rate is around 110-120s. 100 and Cardizem 60 mg p.o. every 8 hours. 09/27/2017-patient still in atrial fibrillation heart rate is around 80-90. He is on Eliquis 5 mg p.o. twice daily. He was also on diltiazem 60 mg p.o. every 8 hours. pt is off the Cardizem drip since yesterday. 09/28/2018-patient still in A. fib with heart rate of 107 p.o. medication on hold for EGD today. Be going to put him back on his Cardizem and Eliquis once he came back from the procedure. Patient is asymptomatic alert and oriented communicating very well. 09/29/2018 patient has history of chronic atrial fibrillation on Eliquis 5 mg p.o. twice daily. Eliquis was on hold , patient was on a heparin drip until 4 AM this morning. We stopped heparin drip because the patient is going for EGD around 10 AM today. Eliquis will be started back this evening. 09/30/2018 patient has a chronic atrial fibrillation on Eliquis 5 mg p.o. twice daily Eliquis was started last night after the EGD was done. Plan to continue Eliquis 5 mg p.o. twice daily 10/01/2018-patient has history of chronic atrial fibrillation heart rate is 113 and he is on Cardizem 60 mg p.o. every 8 hours still in atrial fibrillation with heart rate is 13 plan is to increase Cardizem to 90 mg p.o. every 8 hours. (3) Obesity (BMI 35.0-39.9 without comorbidity) Is this a current diagnosis for this admission?: Yes Plan: 09/27/2018-patient's BMI is more than 40.0 diet exercise weight loss and lifestyle modifications are advised and discussed with the patient dietary consult was requested. 09/28/2018-patient's BMI is more than 40-dietary consult was done. 09/29/2018-patient's BMI is more than 40 diet exercise weight loss lifestyle modification were advised and discussed with the patient dietary consult was requested. 09/30/2018 patient's BMI is more than 40 diet exercise weight loss was advised under dietary consult was requested. 10/01/2018 patient's BMI is more than 40 and her daily weights requested and dietitian consult was done. (4) UTI (urinary tract infection) Is this a current diagnosis for this admission?: Yes Plan: 09/29/2018 patient has a UTI urine culture shows E. coli patient is on IV Rocephin daily. 09/30/2018 E. coli in the urine pt is going to complete 7 days course of IV antibiotic therapy today. 10/01/2018 patient urine culture shows E. coli completed 1 week course of IV ceftriaxone antibiotics are discontinued yesterday patient is afebrile. (5) Hypoalbuminemia Is this a current diagnosis for this admission?: Yes Plan: 09/30/2018-albumin level is 1.9. I requested for albumin 50% IV 1 dose dietitian was consult was requested probably he need high protein diet. 10/01/2018 albumin levels are 1.9 he was given 50% albumin 1 while yesterday dietary consult was done recommendation is to start on [place] yogurt 10:00 in the morning and Magic cup along with snacks in the evening patient is also on Ensure 3 times daily. The recommendation is high protein diet. - Time Time Spent with patient: 15-24 minutes Medications reviewed and adjusted accordingly: Yes Anticipated discharge: Home with Homehealth
[2018-10-01] MEDS: MAGNESIUM OXIDE 400 MG TABLET PO SCH (09:14)
[2018-10-01] MEDS: APIXABAN 5 MG TABLET PO SCH ×2 (09:14→17:26)
[2018-10-01] MEDS: METOPROLOL TARTRATE PF/INJ 5 MG/5 ML SDV IV PRN (13:15)
[2018-10-01] MEDS: DILTIAZEM HCL 90 MG TABLET PO SCH ×2 (13:15→21:29)
[2018-10-01] MEDS: GABAPENTIN 300 MG CAPSULE PO SCH (21:29)
[2018-10-02] MEDS: OXYCODONE HCL IR 5 MG TABLET PO PRN ×5 (04:31→23:41)
[2018-10-02 05:07] LABS: ABSOLUTE EOSINOPHILS # (AUTO) 0.1 10^3/uL (0.0-0.6); ABSOLUTE LYMPHOCYTES (AUTO) 1.5 10^3/uL (0.5-4.7); ABSOLUTE MONOCYTES (AUTO) 0.5 10^3/uL (0.1-1.4); ABSOLUTE NEUT (AUTO) 2.4 10^3/uL (1.7-8.2); BASOPHILS % (AUTO) 0.6 % (0-2); HEMATOCRIT 28.4 % (37.9-51.0); HEMOGLOBIN 9.6 g/dL (13.5-17.0); LYMPHOCYTES % (AUTO) 32.8 % (13-45); MEAN CORPUSCULAR HEMOGLOBIN 31.7 pg (27.0-33.4); MEAN CORPUSCULAR HGB CONC 33.7 g/dL (32.0-36.0); MEAN CORPUSCULAR VOLUME 94 fl (80-97); MONOCYTES % (AUTO) 10.2 % (3-13); PLATELET COUNT 194 10^3/uL (150-450); RED BLOOD COUNT 3.02 10^6/uL (4.35-5.55); SEGMENTED NEUTROPHILS % (AUTO) 53.4 % (42-78); TOTAL CELLS COUNTED % (AUTO) 100 %; WHITE BLOOD COUNT 4.5 10^3/uL (4.0-10.5)
[2018-10-02 05:38] LABS: ALANINE AMINOTRANSFERASE 40 U/L (21-72); ALBUMIN 1.9 g/dL (3.5-5.0); ALKALINE PHOSPHATASE 57 U/L (38-126); ASPARTATE AMINO TRANSFERASE 23 U/L (17-59); BILIRUBIN,DIRECT 0.2 mg/dL (0.0-0.4); BILIRUBIN,TOTAL 0.3 mg/dL (0.2-1.3); BLOOD UREA NITROGEN 7 mg/dL (7-20); CALCIUM 7.9 mg/dL (8.4-10.2); GLUCOSE 87 mg/dL (75-110); POTASSIUM 4.1 mmol/L (3.6-5.0); TOTAL PROTEIN 3.9 g/dL (6.3-8.2)
[2018-10-02 05:43] LABS: CARBON DIOXIDE 31 mmol/L (22-30); CHLORIDE 106 mmol/L (98-107); SODIUM 138.7 mmol/L (137-145)
[2018-10-02 05:49] LABS: ANION GAP 2 (5-19)
[2018-10-02] MEDS: DILTIAZEM HCL 90 MG TABLET PO SCH ×3 (05:51→22:11)
[2018-10-02] MEDS: LANSOPRAZOLE 30 MG TAB.RAP.DR PO SCH (05:51)
--- NOTE | 2018-10-02 09:53 | PDOC PROGRESS REPORT ---
Subjective Progress Note for:: 10/02/18 Subjective:: AMELIA BOB is a 68 year old male with a PMH of chronic atrial fibrillation on Eliquis, COPD not on home O2, history of hypertension and hypothyroidism (now off medications for both), HALLIE not compliant on CPAP and opiate dependence for chronic low back and joint pains from osteoarthritis who presented with multiple BM after a bowel prep, weakness and hypotension with a BP of 69/57. Patient was given fluid boluses but eventually required vasopressor. He did have another large watery BM today. No other acute event overnight however patient continued to Levophed. Patient does have history of chronic atrial fibrillation and heart rate is running in the 120s this morning but this did improve down to 80s after switching Levophed to Gaurav-Synephrine and resuming lopressor. 09/23/18: Patient also takes short acting and long-acting oxycodone at home. He is having some tremors and complains he may be withdrawing from his opiates. Explained that I do not recommend resuming the long-acting oxycodone at this time as he continues to require pressor. We will resume short acting oxycodone as needed. He denies any other acute complaints and denies chest pain or shortness of breath. No nausea, vomiting or diarrhea. No fever or chills. He will be getting another liter of fluid bolus. He is saturating well on room air. 09/24/18: No acute event overnight. Patient had one loose, non bloody BM today but is less and is slightly better formed from yesterday. Neosynephrine is also being weaned down today. He is having less shaking and tremors. Denies chest pa in or SOB. 09/25/18: No acute event overnight. Patient was weaned off neosynephrine overnight. He had a BM today and stools were soft and is close to his baseline. He has chronic Afib and HR this afternoon went into the 150s even with oral lopressor and a single dose of oral cardizem. Blood pressure is table in the 110/80s. He denies chest pain or SOB. He will be started on a cardizem drip. 09/26/2018-no acute events overnight. He does not have any loose bowel movements anymore. He is on A. fib on heparin drip be stopped heparin drip was started on Eliquis from tonight. He is going for EGD and colonoscopy tomorrow. He is comfortably in the bed denies any complaints. 09/27/2018-no acute events overnight patient is afebrile. Heparin was drip was discontinued yesterday started back on Eliquis 5 mg p.o. twice daily. She is going for EGD and colonoscopy today. To be n.p.o. from this morning. pt is comfortably in the sleeping in bed woke up on calling denies any complaints. 09/28/2018-no acute events overnight patient is afebrile. The blood pressure today is 102/64. Patient is asymptomatic. She is going for EGD and colonoscopy today. Eliquis on hold. 09/29/2018 no acute events in the last 24 hours. Patient is afebrile. Yesterday because of the LACK OFF IV access patient is unable to have a EGD or colonoscopy. Anesthesiologist unable to GET IV access so we called the surgeon because of heavy schedule he came very late last night to put a central line. We started pt on heparin drip it was discontinued at 4 AM today due to the fact that patient was scheduled for EGD at 10 AM today .patient's heparin drip as a bridge because of the chronic atrial fibrillation on Eliquis which is on hold after the EGD and colonoscopy we are going to start the Eliquis back 5 mg p.o. twice daily ,first dose will be given tonight. 09/30/2018 no acute events in the last 24 hours. T-max is 98.1. Patient had a EGD done yesterday. Dr. Campbell's impression is patient has a duodenal ulcer with a clean base by a high risk of bleeding. I discussed the plan with the patient and explained about the risk of bleeding if he is on Eliquis but at the same time if he stops Eliquis there is a risk of a stroke. Patient prefers to continue Eliquis. Nurse is telling me patient has difficulty in coming out of the bed and also difficulty in ambulation and abnormality of the gait ,I am going to request for a physical therapy consult today. 10/01/2018 patient is comfortable in the bed communicating very well dietitian came yesterday to talk to the patient because of albumin of 1.9 her rec ommendation is Irish yogurt at 10 AM Magic cup with snacks and no pressures ulcers are documented. He still have a 2+ pedal edema. He got a 50% albumin yesterday 1 dose. Physical therapy consult was requested because patient is not out of the bed since the admission and we want to see if you need any home health with physical therapy. Hopefully they come today. 10/02/2018-no acute events in the last 24 hours. Patient is afebrile. His blood pressure is 102/45 heart rate is 129 still in A. fib. Getting Cardizem 90 mg p.o. every 8 hours and also getting as needed IV metoprolol. Asymptomatic. And is to start him on digoxin 0.125 mg and requested for cardiology consult with Dr. Blount. Reason For Visit: HYPOVOLEMIC SHOCK Physical Exam Vital Signs: Temp Pulse Resp BP Pulse Ox 98.0 F 129 H 16 102/45 L 92 10/02/18 08:19 10/02/18 08:19 10/02/18 08:19 10/02/18 08:19 10/02/18 08:19 Intake & Output 10/01/18 10/02/18 10/03/18 06:59 06:59 06:59 Intake Total 1207 654 Output Total 1050 1365 Balance 157 -711 Weight 139.3 kg 141.6 kg General appearance: PRESENT: no acute distress Head exam: PRESENT: atraumatic Eye exam: PRESENT: PERRLA Mouth exam: PRESENT: moist Neck exam: ABSENT: carotid bruit, JVD, lymphadenopathy, thyromegaly Respiratory exam: PRESENT: decreased breath sounds Cardiovascular exam: PRESENT: irregular rhythm, systolic murmur, tachycardia GI/Abdominal exam: PRESENT: other - Soft obese abdomen with bowel sounds are present. Extremities exam: PRESENT: +2 edema Neurological exam: PRESENT: alert, awake, oriented to person, oriented to place, oriented to time, oriented to situation, CN II-XII grossly intact. ABSENT: motor sensory deficit Psychiatric exam: PRESENT: appropriate affect, normal mood. ABSENT: homicidal ideation, suicidal ideation Results Laboratory Results: 10/02/18 04:50 10/02/18 04:50 10/02/18 10/02/18 04:50 04:50 WBC 4.5 RBC 3.02 L Hgb 9.6 L Hct 28.4 L MCV 94 MCH 31.7 MCHC 33.7 RDW 16.0 H Plt Count 194 Seg Neutrophils % 53.4 Lymphocytes % 32.8 Monocytes % 10.2 Eosinophils % 3.0 Basophils % 0.6 Absolute Neutrophils 2.4 Absolute Lymphocytes 1.5 Absolute Monocytes 0.5 Absolute Eosinophils 0.1 Absolute Basophils 0.0 Sodium 138.7 Potassium 4.1 Chloride 106 Carbon Dioxide 31 H Anion Gap 2 L BUN 7 Creatinine 0.65 Est GFR ( Amer) > 60 Est GFR (Non-Af Amer) > 60 Glucose 87 Calcium 7.9 L Magnesium 1.8 Total Bilirubin 0.3 AST 23 ALT 40 Alkaline Phosphatase 57 Total Protein 3.9 L Albumin 1.9 L 09/22/18 09/30/18 10:59 06:00 CK-MB (CK-2) 1.15 Troponin I < 0.012 NT-Pro-B Natriuret Pep 1960 H Impressions: Knee X-Ray 09/22/18 09:29 IMPRESSION: Potential quadriceps tendon injury. Correlate clinically. Head CT 09/25/18 17:48 IMPRESSION: CHRONIC CHANGES OF ATROPHY AND MICROVASCULAR ISCHEMIA. NO ACUTE PROCESS. EVIDENCE OF ACUTE STROKE: NO. Chest X-Ray 09/28/18 00:00 IMPRESSION: Cardiomegaly. Tip of the central line in the SVC. No pneumothorax Underlying COPD. copyright 2010 [employer]- All Rights Reserved Assessment & Plan - Diagnosis (1) Hypovolemic shock Is this a current diagnosis for this admission?: Yes Plan: Resolved. Weaned off Gaurav-Synephrine overnight. Hypotension is more likely related to severe volume depletion from GI losses with his opiate intake contributing to the hypotension. No leukocytosis, fever or clinical signs of infection or sepsis aside from pyuria on UA. No signs or symptoms of bleeding. Blood culture has been negative so far. 09/26/2018-patient blood pressure today is 118/80. He is off Gaurav-Synephrine. I am going to discontinue his IV fluids. Hypovolemic shock is resolved. Hypovolemic shock most likely secondary to GI losses with the opioid intake. 09/27/2018-blood pressure today is 131/90 with pulse rate of 98. Hypovolemic shock is resolved. IV fluids were discontinued yesterday. Hypokalemia most likely secondary to GI losses with opioid intake. Patient is stable enough to go to the IMCU after the EGD and colonoscopy. 09/28/2018-blood pressure today is 102/64 with pulse rate of 1078 patient is still in atrial fibrillation. He is on p.o. Cardizem 60 mg every 8 hours. Patient is going for EGD colonoscopy today. Once he comes back from a EGD colonoscopy will going to put him back on Eliquis. 09/29/2018-hypovolemic shock was resolved patient blood pressure today is 106/73. He is on. P.o. Cardizem 60 mg every 8 hours also on metoprolol as needed for rate control of atrial fibrillation. Patient is afebrile. Presently he is on D5 half-normal saline at 50 cc/h with IV fluids started last night because of the low glucose. Patient is asymptomatic. 09/30/2018-patient's blood pressure is 112/60 with a pulse rate of 91. He is on a D5 half-normal saline at 50 cc/h. Asymptomatic. Hypovolemic shock is resolved. urine culture is positive for E. coli he is going to complete 7 days of IV antibiotic therapy today. Plan for today is to stop the IV fluids and discontinue the antibiotics this evening. Patient's WBC count is 4600. Blood cultures are negative stool culture is negative for Shigella and salmonella. 10/01/2018-patient blood pressure is 95/61 but manual is 116/80 patient is asymptomatic. Only medication is pt on Cardizem 60 mg p.o. every 8 hours for his atrial fibrillation. he Is off the IV fluids. 10/02/2018-patient blood pressure is 102/45. Asymptomatic. Is getting Cardizem 60 mg p.o. every 8 hours for atrial fibrillation. Initially he was on Gaurav- Synephrine at the time of admission and he has also GI losses. Hypovolemic shock is resolved. (2) Chronic atrial fibrillation Is this a current diagnosis for this admission?: Yes Plan: Currently on heparin drip. He has chronic Afib and HR this afternoon went into the 150s even with oral lopressor and a single dose of oral cardizem. Blood pressure is table in the 110/80s. He denies chest pain or SOB. He will be started on a cardizem drip. 09/26/2018-patient is on Eliquis 5 mg p.o. twice daily at home, at present he is on heparin drip going to turn of the heparin drip and start on Eliquis from [facility]. Patient still in A. fib with heart rate is around 110-120s. 100 and Cardizem 60 mg p.o. every 8 hours. 09/27/2017-patient still in atrial fibrillation heart rate is around 80-90. He is on Eliquis 5 mg p.o. twice daily. He was also on diltiazem 60 mg p.o. every 8 hours. pt is off the Cardizem drip since yesterday. 09/28/2018-patient still in A. fib with heart rate of 107 p.o. medication on hold for EGD today. Be going to put him back on his Cardizem and Eliquis once he came back from the procedure. Patient is asymptomatic alert and oriented communicating very well. 09/29/2018 patient has history of chronic atrial fibrillation on Eliquis 5 mg p.o. twice daily. Eliquis was on hold , patient was on a heparin drip until 4 AM this morning. We stopped heparin drip because the patient is going for EGD around 10 AM today. Eliquis will be started back this evening. 09/30/2018 patient has a chronic atrial fibrillation on Eliquis 5 mg p.o. twice daily Eliquis was started last night after the EGD was done. Plan to continue Eliquis 5 mg p.o. twice daily 10/01/2018-patient has history of chronic atrial fibrillation heart rate is 113 and he is on Cardizem 60 mg p.o. every 8 hours still in atrial fibrillation with heart rate is 13 plan is to increase Cardizem to 90 mg p.o. every 8 hours. 10/02/2018 patient has history of chronic atrial fibrillation on Eliquis 5 mg p.o. twice daily. He is also on Cardizem 60 mg p.o. every 8 hours and IV metoprolol as needed basis, heart rate is today is 130 to135 atrial fib with r apid ventricular rate to start on digoxin 0.125 mcg requested a cardiology consult. (3) Obesity (BMI 35.0-39.9 without comorbidity) Is this a current diagnosis for this admission?: Yes Plan: 09/27/2018-patient's BMI is more than 40.0 diet exercise weight loss and lifestyle modifications are advised and discussed with the patient dietary consult was requested. 09/28/2018-patient's BMI is more than 40-dietary consult was done. 09/29/2018-patient's BMI is more than 40 diet exercise weight loss lifestyle modification were advised and discussed with the patient dietary consult was requested. 09/30/2018 patient's BMI is more than 40 diet exercise weight loss was advised under dietary consult was requested. 10/01/2018 patient's BMI is more than 40 and her daily weights requested and dietitian consult was done. (4) UTI (urinary tract infection) Is this a current diagnosis for this admission?: Yes (5) Hypoalbuminemia Is this a current diagnosis for this admission?: Yes Plan: 09/30/2018-albumin level is 1.9. I requested for albumin 50% IV 1 dose dietitian was consult was requested probably he need high protein diet. 10/01/2018 albumin levels are 1.9 he was given 50% albumin 1 while yesterday dietary consult was done recommendation is to start on Irish yogurt 10:00 in the morning and Magic cup along with snacks in the evening patient is also on Ensure 3 times daily. The recommendation is high protein diet. 10/02/2018 albumin today is 1.9. Dietary consult was done. Because of hypoalbuminemia he has 2+ pedal edema. On the right I am also a little bit swollen. Plan to give another albumin dose again today. (6) Physical debility Is this a current diagnosis for this admission?: Yes Plan: 10/02/2018 patient is in the bed for the last 10 days unable to come out of the bed and he is at high risk for fall physical therapy consult was requested. - Time Time Spent with patient: 15-24 minutes Medications reviewed and adjusted accordingly: Yes Anticipated discharge: Home
[2018-10-02] MEDS: MAGNESIUM OXIDE 400 MG TABLET PO SCH (10:34)
[2018-10-02] MEDS: APIXABAN 5 MG TABLET PO SCH ×2 (10:34→18:32)
[2018-10-02] MEDS: DIGOXIN 0.125 MG TABLET PO SCH (10:34)
[2018-10-02] MEDS: ALBUMIN HUMAN 12.5 GM/50 ML RTUINJ IV SCH ×4 (11:23→14:23)
--- NOTE | 2018-10-02 11:47 | PDOC PROGRESS REPORT ---
Subjective Progress Note for:: 10/02/18 Subjective:: patient had undergone EGD and colonoscopy and was noted to have a c ircumferential duodenal ulcer it was clean based but certainly the cause of the patient's anemia he had some GI bleeding as well patient elected to resume the use of Eliquis with his hospitalist physician endorsing that despite the high risk of bleeding with the use of his anticoagulation so far everything has been stable however if her were to bleed that would be nothing that could be done from the endoscopic viewpoint and that would increase his morbidity and mortality his biopsies are negative and does not need to be treated for H.,pylori patient will need to be on a PPI however to accelerate the healing process Reason For Visit: HYPOVOLEMIC SHOCK Physical Exam Vital Signs: Temp Pulse Resp BP Pulse Ox 98.0 F 129 H 16 102/45 L 92 10/02/18 08:19 10/02/18 08:19 10/02/18 08:19 10/02/18 08:19 10/02/18 08:19 Intake & Output 10/01/18 10/02/18 10/03/18 06:59 06:59 06:59 Intake Total 1207 654 Output Total 1050 1365 Balance 157 -711 Weight 139.3 kg 141.6 kg General appearance: PRESENT: mild distress, well-developed, well-nourished Head exam: PRESENT: atraumatic, normocephalic Eye exam: PRESENT: EOMI, PERRLA. ABSENT: nystagmus, periorbital swelling, scleral icterus Mouth exam: PRESENT: moist, neck supple Teeth exam: ABSENT: edentulous, poor dentation Throat exam: ABSENT: tonsillar exudate, tonsillogmegaly Neck exam: ABSENT: meningismus, tenderness, thyromegaly Respiratory exam: PRESENT: symmetrical, unlabored. ABSENT: tachypnea, wheezes Cardiovascular exam: PRESENT: tachycardia GI/Abdominal exam: PRESENT: soft. ABSENT: rebound, rigid, tenderness Extremities exam: ABSENT: joint swelling Musculoskeletal exam: PRESENT: full ROM Neurological exam: PRESENT: oriented to time, oriented to situation, reflexes normal Focused psych exam: ABSENT: restlessness Skin exam: PRESENT: normal color. ABSENT: mottled, urticaria, vesicles Results Laboratory Results: 10/02/18 04:50 10/02/18 04:50 10/02/18 10/02/18 04:50 04:50 WBC 4.5 RBC 3.02 L Hgb 9.6 L Hct 28.4 L MCV 94 MCH 31.7 MCHC 33.7 RDW 16.0 H Plt Count 194 Seg Neutrophils % 53.4 Lymphocytes % 32.8 Monocytes % 10.2 Eosinophils % 3.0 Basophils % 0.6 Absolute Neutrophils 2.4 Absolute Lymphocytes 1.5 Absolute Monocytes 0.5 Absolute Eosinophils 0.1 Absolute Basophils 0.0 Sodium 138.7 Potassium 4.1 Chloride 106 Carbon Dioxide 31 H Anion Gap 2 L BUN 7 Creatinine 0.65 Est GFR ( Amer) > 60 Est GFR (Non-Af Amer) > 60 Glucose 87 Calcium 7.9 L Magnesium 1.8 Total Bilirubin 0.3 AST 23 ALT 40 Alkaline Phosphatase 57 Total Protein 3.9 L Albumin 1.9 L 09/22/18 09/30/18 10:59 06:00 CK-MB (CK-2) 1.15 Troponin I < 0.012 NT-Pro-B Natriuret Pep 1960 H Impressions: Knee X-Ray 09/22/18 09:29 IMPRESSION: Potential quadriceps tendon injury. Correlate clinically. Head CT 09/25/18 17:48 IMPRESSION: CHRONIC CHANGES OF ATROPHY AND MICROVASCULAR ISCHEMIA. NO ACUTE PROCESS. EVIDENCE OF ACUTE STROKE: NO. Chest X-Ray 09/28/18 00:00 IMPRESSION: Cardiomegaly. Tip of the central line in the SVC. No pneumothorax Underlying COPD. copyright 2010 [employer]- All Rights Reserved Assessment & Plan - Diagnosis (1) Change in bowel habits Is this a current diagnosis for this admission?: Yes Plan: biopsies are negative for collagenous, microscopic or lymphocytic colitis (2) Anemia Is this a current diagnosis for this admission?: Yes Plan: due to chronic anemia ,and possibly due to GI bleeding patient was counselled via the Hospitalist to resume the use of Eliquis despite the use of a duodenal ulcer follow HGB if bleeding will need to stop again and then would be again at risk of stroke patient to get transfused PPI to be started follow as needed if rebleeds, then conservative management no endoscopic procedures can be done for at least 48 hours after stopping Eliquis again - Time Time Spent with patient: 15-24 minutes
[2018-10-02] MEDS ORDERED: FUROSEMIDE INJ/PF 20 MG/2 ML SDV IV ONE (21:00)
[2018-10-02] MEDS: ACETAMINOPHEN 325 MG TABLET PO PRN (22:11)
[2018-10-02] MEDS: GABAPENTIN 300 MG CAPSULE PO SCH (22:11)
--- NOTE | 2018-10-03 | PDOC PROGRESS REPORT ---
Subjective Progress Note for:: 10/02/18 Subjective:: Patient was seen at lunchtime. He was noted to be laying comfortably. Patient or significant other at bedside. Patient is denying any chest pain, PND, orthopnea, sustained palpitations, syncope, near syncope. Patient claims to be doing reasonably well from cardiac standpoint. Patient is prior hospitalisation records were reviewed. Patient noted to have chronic atrial fibrillation. He is being switched over from chronic human therapy to Eliquis therapy. Patient initially was noted to have low blood-pressure but that improved following vasopressor drips. Currently of he is off vasopressors. Reason For Visit: HYPOVOLEMIC SHOCK Physical Exam Vital Signs: Temp Pulse Resp BP Pulse Ox 98.2 F 110 H 20 108/64 93 10/02/18 23:33 10/02/18 23:33 10/02/18 23:33 10/02/18 23:33 10/02/18 23:33 Intake & Output 10/01/18 10/02/18 10/03/18 06:59 06:59 06:59 Intake Total 6600 244 1363 Output Total 1050 1365 790 Balance 157 -711 277 Weight 139.3 kg 141.6 kg Exam: GEN: NAD, patient alert oriented x3. Appearance and grooming WNL HEENT : Eyes: ОЛЬГА, Ears: No significant abnormalities, Nose: No significant abnormalities. normocephalic atraumatic. Flat midface (-), Receding chin (-) ORAL : Mallampati class IV, narrow arched palate (-) Tonsils: Not enlarged. NECK: no thyromegaly, no masses, trachea is central, JVD is not elevated, carotids 2+ with bruit (-) RESP: lungs clear, no rales, wheezes or rhonchi, nonlabored, accessory muscles of respiration use (-). CV: NL S1 and S2. No significant murmurs noted, no gallop, no extra sounds, no clicks, no rub noted. GI: abd NT to palpation, no masses, bowel sounds present, no guarding or rigidity noted. EXT: no clubbing, (-) cyanosis, edema (2+), perpheral pulses diminished (no) MUSC/SKEL: no acute joint swelling noted. Muscle strength is generally intact. NEURO: no significant focal neurological deficits are note, sensation grossly intact, AO x 3 PSYCH: NL mood and affect. judgment and insight noted to be intact. SKIN: (-) rash, (-)Signs of pruritus, (-) other significant abnormality Results Laboratory Results: 10/02/18 04:50 10/02/18 04:50 10/02/18 10/02/18 04:50 04:50 WBC 4.5 RBC 3.02 L Hgb 9.6 L Hct 28.4 L MCV 94 MCH 31.7 MCHC 33.7 RDW 16.0 H Plt Count 194 Seg Neutrophils % 53.4 Lymphocytes % 32.8 Monocytes % 10.2 Eosinophils % 3.0 Basophils % 0.6 Absolute Neutrophils 2.4 Absolute Lymphocytes 1.5 Absolute Monocytes 0.5 Absolute Eosinophils 0.1 Absolute Basophils 0.0 Sodium 138.7 Potassium 4.1 Chloride 106 Carbon Dioxide 31 H Anion Gap 2 L BUN 7 Creatinine 0.65 Est GFR ( Amer) > 60 Est GFR (Non-Af Amer) > 60 Glucose 87 Calcium 7.9 L Magnesium 1.8 Total Bilirubin 0.3 AST 23 ALT 40 Alkaline Phosphatase 57 Total Protein 3.9 L Albumin 1.9 L 09/22/18 09/30/18 10:59 06:00 CK-MB (CK-2) 1.15 Troponin I < 0.012 NT-Pro-B Natriuret Pep 1960 H EKG Comments: Shows atrial fibrillation with controlled ventricle response Impressions: Knee X-Ray 09/22/18 09:29 IMPRESSION: Potential quadriceps tendon injury. Correlate clinically. Head CT 09/25/18 17:48 IMPRESSION: CHRONIC CHANGES OF ATROPHY AND MICROVASCULAR ISCHEMIA. NO ACUTE PROCESS. EVIDENCE OF ACUTE STROKE: NO. Chest X-Ray 09/28/18 00:00 IMPRESSION: Cardiomegaly. Tip of the central line in the SVC. No pneumothorax Underlying COPD. copyright 2010 [employer]- All Rights Reserved Assessment & Plan - Notes Notes: Chronic atrial fibrillation: agree with weight control and chronic anticoagulation. Patient currently on Cardizem 90 mg PO BID. Recommend dosing it Q8 hrs or switching to longer acting diltiazem cd at 120-180 mg ID. If patient becomes hypotensive consider adding mididrin therapy. Agree with adding digoxin therapy.Hypotension: agree with our IV albumin infusion. Albumin is note d to be low. Gastroenterology following. COPD: continue oxygen supplementation. Sleep apnea syndrome: patient has complex sleep apnea. Patient are advised to bring in the PAP therapy so that he can use it at night. - Time Time with patient: Greater than 35 minutes - Patient has complex and significant medical problems. Medications reviewed and adjusted accordingly: Yes
--- NOTE | 2018-10-03 00:10 | EKG REPORT ---
SEVERITY:- ABNORMAL ECG - ATRIAL FIBRILLATION, V-RATE 75-165 PROBABLE INFERIOR INFARCT, AGE INDETERMINATE LATERAL LEADS ARE ALSO INVOLVED : Confirmed by: Duglas Rincon 03-Oct-2018 00:10:09
[2018-10-03] MEDS: OXYCODONE HCL IR 5 MG TABLET PO PRN ×4 (05:01→21:13)
[2018-10-03] MEDS: DILTIAZEM HCL 90 MG TABLET PO SCH ×3 (05:02→21:13)
[2018-10-03] MEDS: LANSOPRAZOLE 30 MG TAB.RAP.DR PO SCH (05:02)
[2018-10-03 05:28] LABS: ABSOLUTE EOSINOPHILS # (AUTO) 0.1 10^3/uL (0.0-0.6); ABSOLUTE LYMPHOCYTES (AUTO) 1.4 10^3/uL (0.5-4.7); ABSOLUTE MONOCYTES (AUTO) 0.4 10^3/uL (0.1-1.4); ABSOLUTE NEUT (AUTO) 2.3 10^3/uL (1.7-8.2); BASOPHILS % (AUTO) 0.5 % (0-2); HEMATOCRIT 28.8 % (37.9-51.0); HEMOGLOBIN 9.8 g/dL (13.5-17.0); MEAN CORPUSCULAR HEMOGLOBIN 32.2 pg (27.0-33.4); MEAN CORPUSCULAR HGB CONC 34.2 g/dL (32.0-36.0); MEAN CORPUSCULAR VOLUME 94 fl (80-97); MONOCYTES % (AUTO) 10.1 % (3-13); PLATELET COUNT 189 10^3/uL (150-450); RED BLOOD COUNT 3.05 10^6/uL (4.35-5.55); RED CELL DISTRIBUTION WIDTH 15.5 % (11.5-14.0); SEGMENTED NEUTROPHILS % (AUTO) 53.4 % (42-78); TOTAL CELLS COUNTED % (AUTO) 100 %; WHITE BLOOD COUNT 4.3 10^3/uL (4.0-10.5)
[2018-10-03 05:49] LABS: ALANINE AMINOTRANSFERASE 36 U/L (21-72); ALBUMIN 2.3 g/dL (3.5-5.0); ALKALINE PHOSPHATASE 55 U/L (38-126); ASPARTATE AMINO TRANSFERASE 22 U/L (17-59); BILIRUBIN,DIRECT 0.3 mg/dL (0.0-0.4); BILIRUBIN,TOTAL 0.5 mg/dL (0.2-1.3); BLOOD UREA NITROGEN 7 mg/dL (7-20); CALCIUM 8.3 mg/dL (8.4-10.2); GLUCOSE 80 mg/dL (75-110); TOTAL PROTEIN 4.2 g/dL (6.3-8.2)
[2018-10-03 05:55] LABS: CARBON DIOXIDE 33 mmol/L (22-30); CHLORIDE 103 mmol/L (98-107); SODIUM 139.4 mmol/L (137-145)
[2018-10-03 06:04] LABS: ANION GAP 4 (5-19)
[2018-10-03] MEDS: ACETAMINOPHEN 325 MG TABLET PO PRN (09:21)
[2018-10-03] MEDS: DIGOXIN 0.125 MG TABLET PO SCH (09:22)
[2018-10-03] MEDS: MAGNESIUM OXIDE 400 MG TABLET PO SCH (09:22)
[2018-10-03] MEDS: APIXABAN 5 MG TABLET PO SCH ×2 (09:22→17:26)
--- NOTE | 2018-10-03 13:39 | PDOC PROGRESS REPORT ---
Subjective Progress Note for:: 10/03/18 Subjective:: AMELIA BOB is a 68 year old male with a PMH of chronic atrial fibrillation on Eliquis, COPD not on home O2, history of hypertension and hypothyroidism (now off medications for both), HALLIE not compliant on CPAP and opiate dependence for chronic low back and joint pains from osteoarthritis who presented with multiple BM after a bowel prep, weakness and hypotension with a BP of 69/57. Patient was given fluid boluses but eventually required vasopressor. His stools eventually came back to baseline and patient was eventually weaned off pressors. His stay was prolonged as he went for EGD and colonoscopy but he received Eliquis prior to said procedures. He continued to improve clinically but appears to be deconditioned. He has morbid obesity and has difficulty with ambulation. He was recommended inpatient/rehab yesterday but he initially refused and thought he does not really need it. He was assessed by PT again and required significant assistance. Discussed disposition again and he is agreeable to going for inpatient rehab. He does continue to complain of right arm swelling and bipedal edema. Reason For Visit: HYPOVOLEMIC SHOCK Physical Exam Vital Signs: Temp Pulse Resp BP Pulse Ox 98.1 F 96 16 105/50 L 95 10/03/18 11:51 10/03/18 11:51 10/03/18 11:51 10/03/18 11:53 10/03/18 11:51 Intake & Output 10/02/18 10/03/18 10/04/18 06:59 06:59 06:59 Intake Total 654 1407 Output Total 1365 2415 Balance -711 -1008 Weight 312 lb 2.793 oz 301 lb 13.005 oz General appearance: PRESENT: no acute distress, obese Head exam: PRESENT: atraumatic, normocephalic Eye exam: PRESENT: conjunctiva pink, EOMI, PERRLA. ABSENT: scleral icterus Ear exam: PRESENT: normal external ear exam Mouth exam: PRESENT: moist, tongue midline Neck exam: ABSENT: carotid bruit, JVD, lymphadenopathy, thyromegaly Respiratory exam: PRESENT: clear to auscultation almaz. ABSENT: rales, rhonchi, wheezes Cardiovascular exam: PRESENT: irregular rhythm. ABSENT: diastolic murmur, rubs, systolic murmur Pulses: PRESENT: normal carotid pulses Vascular exam: PRESENT: normal capillary refill GI/Abdominal exam: PRESENT: normal bowel sounds, soft. ABSENT: distended, guarding, mass, organolmegaly, rebound, tenderness Rectal exam: PRESENT: deferred Extremities exam: PRESENT: +2 edema, other - grossly swollen right arm Neurological exam: PRESENT: alert, awake, oriented to person, oriented to place, oriented to time, oriented to situation, CN II-XII grossly intact. ABSENT: motor sensory deficit Results Laboratory Results: 10/03/18 05:01 10/03/18 05:01 10/03/18 10/03/18 05:01 05:01 WBC 4.3 RBC 3.05 L Hgb 9.8 L Hct 28.8 L MCV 94 MCH 32.2 MCHC 34.2 RDW 15.5 H Plt Count 189 Seg Neutrophils % 53.4 Lymphocytes % 33.0 Monocytes % 10.1 Eosinophils % 3.0 Basophils % 0.5 Absolute Neutrophils 2.3 Absolute Lymphocytes 1.4 Absolute Monocytes 0.4 Absolute Eosinophils 0.1 Absolute Basophils 0.0 Sodium 139.4 Potassium 4.0 Chloride 103 Carbon Dioxide 33 H Anion Gap 4 L BUN 7 Creatinine 0.68 Est GFR ( Amer) > 60 Est GFR (Non-Af Amer) > 60 Glucose 80 Calcium 8.3 L Magnesium 1.8 Total Bilirubin 0.5 AST 22 ALT 36 Alkaline Phosphatase 55 Total Protein 4.2 L Albumin 2.3 L 09/22/18 09/30/18 10:59 06:00 CK-MB (CK-2) 1.15 Troponin I < 0.012 NT-Pro-B Natriuret Pep 1960 H Impressions: Knee X-Ray 09/22/18 09:29 IMPRESSION: Potential quadriceps tendon injury. Correlate clinically. Head CT 09/25/18 17:48 IMPRESSION: CHRONIC CHANGES OF ATROPHY AND MICROVASCULAR ISCHEMIA. NO ACUTE PROCESS. EVIDENCE OF ACUTE STROKE: NO. Chest X-Ray 09/28/18 00:00 IMPRESSION: Cardiomegaly. Tip of the central line in the SVC. No pneumothorax Underlying COPD. copyright 2010 [employer]- All Rights Reserved Assessment & Plan - Diagnosis (1) Hypovolemic shock Is this a current diagnosis for this admission?: Yes Plan: Resolved. Secondary to acute on chronic diarrhea with opiate intake contributory. (2) Chronic atrial fibrillation Is this a current diagnosis for this admission?: Yes Plan: Rate controlled. Continue PO cardizem. He has been resumed on Eliquis after a lengthy discussion about risks and benefits and knowing he has a duodenal ulcer as well. He preferred to be continued on Eliquis. (3) Opiate dependence Is this a current diagnosis for this admission?: Yes Plan: Continue short-acting oxycodone as needed. (4) Duodenal ulcer Is this a current diagnosis for this admission?: Yes Plan: On lansoprazole. Will discharge on Protonix. (5) Physical deconditioning Is this a current diagnosis for this admission?: Yes Plan: Will be discharged to inpatient rehab. (6) Morbid obesity due to excess calories Is this a current diagnosis for this admission?: Yes Plan: Counseled on importance of weight loss. (7) UTI (urinary tract infection) Is this a current diagnosis for this admission?: Yes Plan: Completed Rocephin. - Time Time Spent with patient: 25-34 minutes
[2018-10-03] MEDS: GABAPENTIN 300 MG CAPSULE PO SCH (21:13)
[2018-10-04] MEDS: OXYCODONE HCL IR 5 MG TABLET PO PRN ×3 (01:14→12:43)
[2018-10-04] MEDS: LANSOPRAZOLE 30 MG TAB.RAP.DR PO SCH (06:05)
[2018-10-04] MEDS: DILTIAZEM HCL 90 MG TABLET PO SCH ×2 (06:06→14:39)
--- NOTE | 2018-10-04 08:05 | XCELERA REPORT ---
[address] [address] Upper Extremity Venous Evaluation Name: AMELIA BOB Age: 68 yrs Gender: Male : 1950 Patient Status: Inpatient Patient Location: [address] [place], [place] [address] Study Date: 10/03/2018 10:43 AM Procedure: Unilateral duplex scan of the right upper extremity veins was performed, including responses to compression and other maneuvers. Reason For Study: right arm swelling Ordering Physician: FELICIANO CA Performed By: Maranda Castelan Right Side Venous Evaluation Noted is a right subclavian catheter, tunneled subcutaneously. Normal vessel filling wall to wall, compression and augmentation as well as Colour flow down to the forearm veins. Interpretation Summary Normal compression, patency, spontaneous and phasic flow of the right upper extremity veins. Right subclavian catheter noted. : FELICIANO CA > Jovany Rose
[2018-10-04] MEDS: APIXABAN 5 MG TABLET PO SCH (09:11)
[2018-10-04] MEDS: DIGOXIN 0.125 MG TABLET PO SCH (09:11)
[2018-10-04] MEDS: MAGNESIUM OXIDE 400 MG TABLET PO SCH (09:11)
[2018-10-04] MEDS ORDERED: METOPROLOL SUCCINATE 50 MG TAB.SR.24H PO ONE (13:00)
[2018-10-04 16:36] VITALS: BP 90/52
--- NOTE | 2018-10-04 16:39 | PDOC DISCHARGE SUMMARY ---
General - Admit/Disc Date/PCP Admission Date/Primary Care Provider: 09/22/18 14:20 BRAN CERNA PA-C Discharge Date: 10/04/18 - Discharge Diagnosis (1) Hypovolemic shock Is this a current diagnosis for this admission?: Yes (2) Chronic atrial fibrillation Is this a current diagnosis for this admission?: Yes (3) Opiate dependence Is this a current diagnosis for this admission?: Yes (4) Duodenal ulcer Is this a current diagnosis for this admission?: Yes (5) Physical deconditioning Is this a current diagnosis for this admission?: Yes (6) Morbid obesity due to excess calories Is this a current diagnosis for this admission?: Yes (7) UTI (urinary tract infection) Is this a current diagnosis for this admission?: Yes - Additional Information Resuscitation Status: Full Code Prescriptions: Digoxin [Lanoxin 0.125 mg Tablet] 0.125 mg PO DAILY #30 tablet Diltiazem HCl [Cardizem 90 mg Tablet] 1 tab PO Q8 #90 tab Pantoprazole Sodium [Protonix] 40 mg PO QAM #60 tablet.dr Gil Medications: Apixaban [Eliquis 5 mg Tablet] 5 mg PO BID 09/22/18 Diphenoxylate HCl/Atrop Sulf [Lomotil 2.5 mg Tablet] 1 tab PO TIDP PRN 09/22/18 Gabapentin [Neurontin 300 mg Capsule] 300 mg PO QHS 09/22/18 Metoprolol Succinate [Toprol Xl 50 mg Tab.sr] 50 mg PO DAILY 09/22/18 Oxycodone HCl [Oxycodone HCl 10 MG Tablet] 10 mg PO Q4HP PRN 09/22/18 Acetaminophen [Tylenol 325 mg Tablet] 650 mg PO Q6HP PRN tablet 10/04/18 Digoxin [Lanoxin 0.125 mg Tablet] 0.125 mg PO DAILY #30 tablet 10/04/18 Diltiazem HCl [Cardizem 90 mg Tablet] 1 tab PO Q8 #90 tab 10/04/18 Pantoprazole Sodium [Protonix] 40 mg PO QAM #60 tablet. 10/04/18 History of Present Illness History of Present Illness: AMELIA BOB is a 68 year old male with a PMH of chronic atrial fibrillation on Eliquis, COPD not on home O2, history of hypertension and hypothyroidism (now off medications for both), HALLIE not compliant on CPAP and opite dependence for chronic low back and joint pains from osteoarthritis who initially presented with weakness. Patient has issues with chronic diarrhea and is following with Dr. Nixon. He was scheduled for an EGD and colonoscopy today and had bowel prep yesterday. says he took 4 dulcolax tablets yesterday and 2 bottles of gatorade with Miralax solution and he started having multiple episodes of watery, nonbloody stools last night and this morning and he developed generalized weakness. They went to the endoscopy center but patient slumped to the ground from his walker due to the weakness. He denies headache, sensory of focal weakness. He did have some mild dizziness. He is also on opiates for his chronic pain and took these last night and this morning. In the ER, he was noted to be hypotensive with the lowest BP at 69/57. He was given 2L of fluid bolus which slightly improved his blood pressures but he eventually required pressor. He was started on levophed at 8 mcg but this was increased to 10 mcg later. Upon encounter, patient is comfortable. He denies chest pain or SOB. Denies fever or chills. He denies cough or colds, nausea or vomiting. blood pressure has improved to 100/50s on levophed. He will be given a 3rd liter of fluid bolus. He has been off Eliquis for 2 days for his supposed EGD and colonoscopy today. Hospital Course Hospital Course: AMELIA BOB is a 68 year old male with a PMH of chronic atrial fibrillation on Eliquis, COPD not on home O2, history of hypertension and hypothyroidism (now off medications for both), HALLIE not compliant on CPAP and opiate dependence for chronic low back and joint pains from osteoarthritis who presented with multiple BM after a bowel prep, weakness and hypotension with a BP of 69/57. Patient was given fluid boluses but eventually required vasopressor. His stools eventually came back to baseline and patient was eventually weaned off pressors. His hospital stay was prolonged as he was scheduled for EGD and colonoscopy but he received Eliquis prior to said procedures. His EGD was only remarkable for a duodenal ulcer. He was started on PPI and will be discharged on protonix. He also completed Rocephin for UTI. 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 Rincon. PO cardizem and lanoxin was added to his regimen (lopressor and Eliquis). Discussed risks and benefits of anticoagulation including risk of bleeding of duodenal ulcer and he preferred to be continued on Eliquis. Optimal heart rate control was achieved with mentioned regimen and he was running in the 80s with normal blood pressures. He continued to improve clinically but appeared to be deconditioned. He has morbid obesity and has difficulty with ambulation. He was evaluated by PT. He was recommended inpatient/rehab and initially was agreeable. Patient later changed his mind and insisted on going home. This was also discussed in length with his who refused inpatient rehab or SNF. Explained he was still requiring significant assistance with his ADLs and that he continues to have a high risk of falling at home. Both patient and say that they have a son and grandson who live close by and they can help and assist her with ambulating patient. She says he does have history of fall and has called 911 a few times before for physical assistance when patient falls if his son or grandson is not available. Discussed risks of not being discharged to rehab or SNF and both insisted on going home. Will set up home health and home PT instead to assist patient at home. Physical Exam Vital Signs: Temp Pulse Resp BP Pulse Ox 97.7 F 102 H 16 128/54 H 92 10/04/18 11:26 10/04/18 14:00 10/04/18 11:26 10/04/18 11:26 10/04/18 11:26 Intake & Output 10/03/18 10/04/18 10/05/18 06:59 06:59 06:59 Intake Total 1407 1522 Output Total 2415 1125 Balance -1008 397 Weight 301 lb 13.005 oz 301 lb 5.95 oz General appearance: PRESENT: no acute distress, morbidly obese Head exam: PRESENT: atraumatic, normocephalic Eye exam: PRESENT: conjunctiva pink, EOMI, PERRLA. ABSENT: scleral icterus Ear exam: PRESENT: normal external ear exam Mouth exam: PRESENT: moist, tongue midline Neck exam: ABSENT: carotid bruit, JVD, lymphadenopathy, thyromegaly Respiratory exam: PRESENT: clear to auscultation lamaz. ABSENT: rales, rhonchi, wheezes Cardiovascular exam: PRESENT: irregular rhythm. ABSENT: bradycardia, systolic murmur Pulses: PRESENT: normal dorsalis pedis pul GI/Abdominal exam: PRESENT: normal bowel sounds, soft. ABSENT: distended, guarding, mass, organolmegaly, rebound, tenderness Rectal exam: PRESENT: deferred Extremities exam: PRESENT: +1 edema Neurological exam: PRESENT: alert, awake, oriented to person, oriented to place, oriented to time, oriented to situation, CN II-XII grossly intact. ABSENT: motor sensory deficit Results Laboratory Results: 10/03/18 05:01 10/03/18 05:01 09/22/18 09/30/18 10:59 06:00 CK-MB (CK-2) 1.15 Troponin I < 0.012 NT-Pro-B Natriuret Pep 1960 H Impressions: Knee X-Ray 09/22/18 09:29 IMPRESSION: Potential quadriceps tendon injury. Correlate clinically. Head CT 09/25/18 17:48 IMPRESSION: CHRONIC CHANGES OF ATROPHY AND MICROVASCULAR ISCHEMIA. NO ACUTE PROCESS. EVIDENCE OF ACUTE STROKE: NO. Chest X-Ray 09/28/18 00:00 IMPRESSION: Cardiomegaly. Tip of the central line in the SVC. No pneumothorax Underlying COPD. copyright 2010 [employer]- All Rights Reserved Qualifiers - * PATIENT BEING DISCHARGED WITH ANY OF THE FOLLOWING DIAGNOSIS: No
--- NOTE | 2018-10-05 10:30 | PDOC PROGRESS REPORT ---
Subjective Progress Note for:: 10/03/18 Subjective:: Patient was seen evening rounds. He was noted to be laying comfortably. Patient or significant other at bedside. Patient is denying any chest pain, PND, orthopnea, sustained palpitations, syncope, near syncope. Patient claims to be doing reasonably well from cardiac standpoint. Patient is prior hospitalisation records were reviewed. Patient noted to have chronic atrial fibrillation. Patient agreed to go on chronic Eliquis therapy. Side effects are discussed. Patient initially was noted to have low blood-pressure but that improved following vasopressor drips. Currently of he is off vasopressors. Reason For Visit: HYPOVOLEMIC SHOCK Physical Exam Vital Signs: Temp Pulse Resp BP Pulse Ox 98.1 F 76 16 122/59 L 93 10/03/18 16:09 10/03/18 16:09 10/03/18 16:09 10/03/18 16:09 10/03/18 16:09 Intake & Output 10/02/18 10/03/18 10/04/18 06:59 06:59 06:59 Intake Total 654 1407 1522 Output Total 1365 2415 475 Balance -711 -1008 1047 Weight 141.6 kg 136.9 kg Exam: GENERAL: well-nourished and in no acute distress. Alert and oriented x3 HEAD: Atraumatic, normocephalic. EYES: ОЛЬГА, sclera anicteric, conjunctiva are normal. ENT: Moist mucous membranes. No oral ulcerations or bleeding gums noted. No obvious ear, nose or throat abnormalities noted. NECK: supple without lymphadenopathy. Trachea is central. No cervical or axillary lymphadenopathy noted. Carotids are 2+, JVD WNL LUNGS: Breath sounds clear bilaterally. No wheezes rales or rhonchi noted. No significant dullness noted on percussion. CHEST: Palpation of the chest wall shows no significant chest wall tenderness. 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 ABDOMEN: Soft, no significant tenderness appreciated, normoactive bowel sounds. No guarding, no rebound. No rigidity noted . No masses appreciated. EXTREMITIES: Pedal pulses are 1-2+, no calf tenderness noted. No clubbing or cyanosis. 2+ pedal edema noted NEUROLOGICAL: Focused neurological exam showed no significant neurologic deficit. Normal speech, no focal weakness appreciated. PSYCH: Normal mood, normal affect. Judgment and insight within normal limits. SKIN: No significant ecchymosis, skin is noted to be warm. MUSCULOSKELETAL EXAM: No significant acute joint swelling noted. Results Laboratory Results: 10/03/18 05:01 10/03/18 05:01 10/03/18 10/03/18 05:01 05:01 WBC 4.3 RBC 3.05 L Hgb 9.8 L Hct 28.8 L MCV 94 MCH 32.2 MCHC 34.2 RDW 15.5 H Plt Count 189 Seg Neutrophils % 53.4 Lymphocytes % 33.0 Monocytes % 10.1 Eosinophils % 3.0 Basophils % 0.5 Absolute Neutrophils 2.3 Absolute Lymphocytes 1.4 Absolute Monocytes 0.4 Absolute Eosinophils 0.1 Absolute Basophils 0.0 Sodium 139.4 Potassium 4.0 Chloride 103 Carbon Dioxide 33 H Anion Gap 4 L BUN 7 Creatinine 0.68 Est GFR ( Amer) > 60 Est GFR (Non-Af Amer) > 60 Glucose 80 Calcium 8.3 L Magnesium 1.8 Total Bilirubin 0.5 AST 22 ALT 36 Alkaline Phosphatase 55 Total Protein 4.2 L Albumin 2.3 L 09/22/18 09/30/18 10:59 06:00 CK-MB (CK-2) 1.15 Troponin I < 0.012 NT-Pro-B Natriuret Pep 1960 H EKG Comments: Atrial fibrillation with relatively controlled heart rate response. Impressions: Knee X-Ray 09/22/18 09:29 IMPRESSION: Potential quadriceps tendon injury. Correlate clinically. Head CT 09/25/18 17:48 IMPRESSION: CHRONIC CHANGES OF ATROPHY AND MICROVASCULAR ISCHEMIA. NO ACUTE PROCESS. EVIDENCE OF ACUTE STROKE: NO. Chest X-Ray 09/28/18 00:00 IMPRESSION: Cardiomegaly. Tip of the central line in the SVC. No pneumothorax Underlying COPD. copyright 2010 [employer]- All Rights Reserved Assessment & Plan - Diagnosis (1) Chronic atrial fibrillation Is this a current diagnosis for this admission?: Yes (2) Morbid obesity due to excess calories Is this a current diagnosis for this admission?: Yes (3) Opiate dependence Qualifiers: Complication of substance-induced condition: with unspecified complication Is this a current diagnosis for this admission?: Yes (4) Physical debility Is this a current diagnosis for this admission?: Yes (5) COPD (chronic obstructive pulmonary disease) Qualifiers: Emphysema type: unspecified Is this a current diagnosis for this admission?: Yes (6) Hypoalbuminemia Is this a current diagnosis for this admission?: Yes (7) Localized edema Is this a current diagnosis for this admission?: Yes - Notes Notes: Patient generally stable from cardiac standpoint. Patient has chronic atrial fibrillation. Agree with chronic Eliquis therapy. Agree with albumin infusion, may pete with diuretic if needed for diuresis. As regards COPD and sleep apnea syndrome, patient will benefit from continuing current therapy. Patient will benefit from nightly positive pressure ventilation. Orders written. - Time Time with patient: Greater than 35 minutes Medications reviewed and adjusted accordingly: Yes
--- NOTE | 2018-10-05 19:49 | PDOC PROGRESS REPORT ---
Subjective Progress Note for:: 10/04/18 Subjective:: Patient was seen AM rounds. He was noted to be laying comfortably. Patient or significant other at bedside. Patient is denying any chest pain, PND, orthopnea, sustained palpitations, syncope, near syncope. Patient claims to be doing reasonably well from cardiac standpoint. Patient is prior hospitalisation records were reviewed. Patient noted to have chronic atrial fibrillation. HR still slightly up. Reason For Visit: HYPOVOLEMIC SHOCK Physical Exam Vital Signs: Temp Pulse Resp BP Pulse Ox 97.7 F 102 H 16 90/52 L 92 10/04/18 16:35 10/04/18 16:35 10/04/18 16:35 10/04/18 16:35 10/04/18 16:35 Intake & Output 10/04/18 10/05/18 10/06/18 06:59 06:59 06:59 Intake Total 1522 Output Total 1125 Balance 397 Weight 136.7 kg Exam: GENERAL: well-nourished and in no acute distress. Alert and oriented x3 HEAD: Atraumatic, normocephalic. EYES: ОЛЬГА, sclera anicteric, conjunctiva are normal. ENT: Moist mucous membranes. No oral ulcerations or bleeding gums noted. No obvious ear, nose or throat abnormalities noted. NECK: supple without lymphadenopathy. Trachea is central. No cervical or a xillary lymphadenopathy noted. Carotids are 2+, JVD WNL LUNGS: Breath sounds clear bilaterally. No wheezes rales or rhonchi noted. No significant dullness noted on percussion. CHEST: Palpation of the chest wall shows no significant chest wall tenderness. 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 ABDOMEN: Soft, no significant tenderness appreciated, normoactive bowel sounds. No guarding, no rebound. No rigidity noted . No masses appreciated. EXTREMITIES: Pedal pulses are 1-2+, no calf tenderness noted. No clubbing or cyanosis. 2+ pedal edema noted NEUROLOGICAL: Focused neurological exam showed no significant neurologic defici t. Normal speech, no focal weakness appreciated. PSYCH: Normal mood, normal affect. Judgment and insight within normal limits. SKIN: No significant ecchymosis, skin is noted to be warm. MUSCULOSKELETAL EXAM: No significant acute joint swelling noted. Results Laboratory Results: 10/03/18 05:01 10/03/18 05:01 09/22/18 09/30/18 10:59 06:00 CK-MB (CK-2) 1.15 Troponin I < 0.012 NT-Pro-B Natriuret Pep 1960 H Impressions: Knee X-Ray 09/22/18 09:29 IMPRESSION: Potential quadriceps tendon injury. Correlate clinically. Head CT 09/25/18 17:48 IMPRESSION: CHRONIC CHANGES OF ATROPHY AND MICROVASCULAR ISCHEMIA. NO ACUTE PROCESS. EVIDENCE OF ACUTE STROKE: NO. Chest X-Ray 09/28/18 00:00 IMPRESSION: Cardiomegaly. Tip of the central line in the SVC. No pneumothorax Underlying COPD. copyright 2011 [employer]- All Rights Reserved Assessment & Plan - Diagnosis (1) Chronic atrial fibrillation Is this a current diagnosis for this admission?: Yes (2) Morbid obesity due to excess calories Is this a current diagnosis for this admission?: Yes (3) Opiate dependence Qualifiers: Complication of substance-induced condition: with unspecified complication Is this a current diagnosis for this admission?: Yes (4) Physical debility Is this a current diagnosis for this admission?: Yes (5) COPD (chronic obstructive pulmonary disease) Qualifiers: Emphysema type: unspecified Is this a current diagnosis for this admission?: Yes (6) Hypoalbuminemia Is this a current diagnosis for this admission?: Yes (7) Localized edema Is this a current diagnosis for this admission?: Yes - Notes Notes: Patient noted to be resting comfortably. Heart rate noted to be somewhat on the high side. Discussed with hospitalist. Patient to be started on low-dose beta- pascual. Patient can be discharged from cardiac standpoint with close cardiology follow-up. This was related to the hospitalist. Patient should start back on her positive pressure noninvasive ventilation therapy. Patient has other significant comorbid condition which is being well managed by the hospitalist. - Time Time with patient: 15-25 minutes - Patient advised to see me in the office. Further evaluation can be performed with a cardiac event monitor. Medications reviewed and adjusted accordingly: Yes
== END 2018-10-04 16:54 | disposition home health service (06) | DRG 872 ==
LOC: ER 08:46 → EH 14:20 → ICU 20:25 → 3N 09-28 07:46
PROVIDERS: ADMIT Internal Medicine; ATTEND Internal Medicine
PROC: 02HV33Z Insertion of Infusion Device into Superior Vena Cava, Percutaneous Approach (ICD-10-PCS; principal; 2018-09-28)
PROC: 0DD98ZX Extraction of Duodenum, Via Natural or Artificial Opening Endoscopic, Diagnostic (ICD-10-PCS; 2018-09-29)
PROC: 0DDF8ZX Extraction of Right Large Intestine, Via Natural or Artificial Opening Endoscopic, Diagnostic (ICD-10-PCS; 2018-09-29 11:30)
DX: R57.1 Hypovolemic shock (principal); N39.0 Urinary tract infection, site not specified; Z68.42 Body mass index [BMI] 45.0-49.9, adult; I95.9 Hypotension, unspecified; I48.2 Chronic atrial fibrillation; E03.9 Hypothyroidism, unspecified; I10 Essential (primary) hypertension; B96.20 Unspecified Escherichia coli [E. coli] as the cause of diseases classified elsewhere; K64.8 Other hemorrhoids; K26.9 Duodenal ulcer, unspecified as acute or chronic, without hemorrhage or perforation; E88.09 Other disorders of plasma-protein metabolism, not elsewhere classified; R53.81 Other malaise; D64.89 Other specified anemias; G47.30 Sleep apnea, unspecified; E66.01 Morbid (severe) obesity due to excess calories; Z96.653 Presence of artificial knee joint, bilateral; Z98.84 Bariatric surgery status; Z79.01 Long term (current) use of anticoagulants; Z79.899 Other long term (current) drug therapy; Z79.891 Long term (current) use of opiate analgesic
CPT/HCPCS: 00813; 36415; 43239; 45380; 70450; 71045; 80048; 80053; 80076; 81001; 82272; 82553; 82962; 83605; 83735; 83880; 84443; 84484; 85025; 85027; 85379; 85610; 85730; 87040; 87045; 87086; 87088; 87186; 87205; 87493; 88305; 89055; 93005; 93010; 93971; 94660; 96361; 96365; 99291; C1751; C1758; J0696; J1170; J1630; J1644; J1940; J2060; J2250; J2370; J2405; J2704; J3010; J3480; J3490; J7030; J7060; P9047

== ENCOUNTER 2018-12-10 14:01 | Inpatient (IN) | payer OTHER, MEDICARE ==
[2018-12-10] MEDS ORDERED: RINGERS SOLUTION,LACTATED 1,000 ML IV ONE ×4 (14:27→19:48)
[2018-12-10] MEDS ORDERED: CEFTRIAXONE 1 GM/D5W RTU 1 GM/50 ML RTUPB IV ONE ×2 (14:29→15:30)
[2018-12-10] MEDS ORDERED: IPRATROPIUM/ALBUTEROL 0.5-2.5 MG/3 ML AMPUL NEB ONE (14:29)
--- NOTE | 2018-12-10 14:31 | ER Document Report ---
ED General - General Stated Complaint: WEAKNESS Time Seen by Provider: 12/10/18 14:06 Primary Care Provider: BRAN CERNA PA-C [Primary Care Provider] - Follow up as needed Mode of Arrival: Medic Information source: Patient, Emergency Med Personnel, [facility] Records Notes: 68 year old male with chronic atrial fibrillation on Eliquis, COPD not on home O2, hypertension and hypothyroidism (now off medications for both), HALLIE not compliant on CPAP, opiate dependence for chronic low back and joint pains from osteoarthritis presents via EMS with chief complaint of weakness and diarrhea. Patient did have a hospital admission in September 2018 for hypovolemic shock. He was discharged on October 04, 2018. Patient reports that diarrhea that he did experience in September improved but then returned. Patient denies headache, nausea, vomiting, chest pain, abdominal pain. He does admit to urinary r etention, decreased p.o. intake. TRAVEL OUTSIDE OF THE [place] IN LAST 30 DAYS: No - HPI Onset: Other Onset/Duration: Persistent Quality of pain: No pain Severity: None Associated symptoms: Diarrhea, Weakness. denies: Body/muscle aches, Chest pain, Fever, Hurts to breath, Nausea, Vomiting, Shortness of breath Exacerbated by: Denies Relieved by: Denies Similar symptoms previously: Yes Recently seen / treated by doctor: No - Related Data Allergies/Adverse Reactions: No Known Allergies Allergy (Verified 09/21/18 10:36) Past Medical History - General Information source: Patient, Emergency Med Personnel, [facility] Records - Social History Smoking Status: Former Smoker Frequency of alcohol use: None Drug Abuse: None Lives with: Family Family History: Reviewed & Not Pertinent, COPD Patient has suicidal ideation: No Patient has homicidal ideation: No - Past Medical History Cardiac Medical History: Reports: Hx Atrial Fibrillation, Hx Coronary Artery Disease - A-FIB Denies: Hx Heart Attack, Hx Hypertension Pulmonary Medical History: Reports: Hx COPD, Hx Pneumonia Denies: Hx Asthma, Hx Bronchitis Neurological Medical History: Denies: Hx Cerebrovascular Accident, Hx Seizures Endocrine Medical History: Reports: Hx Hypothyroidism Renal/ Medical History: Denies: Hx Peritoneal Dialysis Musculoskeletal Medical History: Reports Hx Arthritis - DDD Past Surgical History: Reports: Hx Gastric Bypass Surgery - 1993, Hx Orthopedic Surgery - Herniated Disc Repair, Bilateral Knee Replacement - Immunizations Hx Diphtheria, Pertussis, Tetanus Vaccination: Yes Hx Pneumococcal Vaccination: 07/20/09 Review of Systems - Review of Systems Constitutional: Malaise, Weakness. denies: Chills, Fever EENT: denies: Blurred vision, Throat pain, Difficulty swallowing Cardiovascular: denies: Chest pain, Palpitations, Dyspnea Respiratory: denies: Cough, Short of breath Gastrointestinal: Diarrhea, Poor appetite, Poor fluid intake. denies: Abdomen distended, Abdominal pain, Nausea, Constipation Genitourinary: Retention. denies: Flank pain Male Genitourinary: No symptoms reported Musculoskeletal: Leg swelling Skin: Rash Hematologic/Lymphatic: No symptoms reported Neurological/Psychological: Weakness. denies: Headaches -: Yes All other systems reviewed and negative Physical Exam - Vital signs Vitals: Resp 8 L 12/10/18 14:07 Interpretation: Tachycardic, Hypoxic - Notes Notes: PHYSICAL EXAMINATION: GENERAL: Ill-appearing, pale HEAD: Atraumatic, normocephalic. EYES: Pupils equal round and reactive to light, extraocular movements intact, sclera anicteric, conjunctiva are normal. ENT: Nares patent, oropharynx clear without exudates. Dry mucous membranes. NECK: Normal range of motion, supple without lymphadenopathy LUNGS: Diminished breath sounds in all lung maxwell. Hypoxic on nasal cannula 2 L. HEART: Tachycardic, regular rhythm ABDOMEN: Soft, nontender, nondistended abdomen. No guarding, no rebound. No masses appreciated. Surgical scar clean dry intact Musculoskeletal: Normal range of motion, mild bilateral lower extremity edema. No cyanosis. NEUROLOGICAL: Cranial nerves grossly intact. Normal speech. PSYCH: Flat affect SKIN: Fungal rash under left axilla, skin tenting Course - Re-evaluation Re-evalutation: 12/10/18 16:33 Laboratory 12/10/18 12/10/18 12/10/18 14:09 14:30 14:30 WBC 7.6 RBC 4.73 Hgb 14.9 Hct 45.3 MCV 96 MCH 31.4 MCHC 32.8 RDW 14.2 H Plt Count 240 Seg Neutrophils % 83.1 H Lymphocytes % 12.7 L Monocytes % 3.9 Eosinophils % 0.0 Basophils % 0.3 Absolute Neutrophils 6.3 Absolute Lymphocytes 1.0 Absolute Monocytes 0.3 Absolute Eosinophils 0.0 Absolute Basophils 0.0 PT 25.2 H INR 2.17 VBG pH VBG pCO2 VBG HCO3 VBG Base Excess Sodium Potassium Chloride Carbon Dioxide Anion Gap BUN Creatinine Est GFR ( Amer) Est GFR (Non-Af Amer) Glucose POC Glucose 83 Lactic Acid Calcium Total Bilirubin Direct Bilirubin Neonat Total Bilirubin Neonat Direct Bilirubin Neonat Indirect Bili AST ALT Alkaline Phosphatase Troponin I NT-Pro-B Natriuret Pep Total Protein Albumin Urine Color Urine Appearance Urine pH Ur Specific [place] Urine Protein Urine Glucose (UA) Urine Ketones Urine Blood Urine Nitrite Urine Bilirubin Urine Urobilinogen Ur Leukocyte Esterase Urine WBC (Auto) Urine RBC (Auto) Urine Bacteria (Auto) Squamous Epi Cells Auto Urine Mucus (Auto) Urine Ascorbic Acid C. difficile Tox (PCR) 12/10/18 12/10/18 12/10/18 14:30 14:30 14:30 WBC RBC Hgb Hct MCV MCH MCHC RDW Plt Count Seg Neutrophils % Lymphocytes % Monocytes % Eosinophils % Basophils % Absolute Neutrophils Absolute Lymphocytes Absolute Monocytes Absolute Eosinophils Absolute Basophils PT INR VBG pH 7.42 VBG pCO2 38.7 VBG HCO3 24.5 VBG Base Excess 0.2 Sodium 136.4 L Potassium 4.5 Chloride 100 Carbon Dioxide 26 Anion Gap 10 BUN 27 H Creatinine 1.72 H Est GFR ( Amer) 48 L Est GFR (Non-Af Amer) 40 L Glucose 82 POC Glucose Lactic Acid 2.8 H Calcium 8.4 Total Bilirubin 1.6 H Direct Bilirubin 1.3 H Neonat Total Bilirubin Not Reportable Neonat Direct Bilirubin Not Reportable Neonat Indirect Bili Not Reportable AST 122 H ALT 104 H Alkaline Phosphatase 135 H Troponin I NT-Pro-B Natriuret Pep Total Protein 5.1 L Albumin 2.4 L Urine Color Urine Appearance Urine pH Ur Specific [place] Urine Protein Urine Glucose (UA) Urine Ketones Urine Blood Urine Nitrite Urine Bilirubin Urine Urobilinogen Ur Leukocyte Esterase Urine WBC (Auto) Urine RBC (Auto) Urine Bacteria (Auto) Squamous Epi Cells Auto Urine Mucus (Auto) Urine Ascorbic Acid C. difficile Tox (PCR) 12/10/18 12/10/18 12/10/18 14:30 15:00 15:00 WBC RBC Hgb Hct MCV MCH MCHC RDW Plt Count Seg Neutrophils % Lymphocytes % Monocytes % Eosinophils % Basophils % Absolute Neutrophils Absolute Lymphocytes Absolute Monocytes Absolute Eosinophils Absolute Basophils PT INR VBG pH VBG pCO2 VBG HCO3 VBG Base Excess Sodium Potassium Chloride Carbon Dioxide Anion Gap BUN Creatinine Est GFR ( Amer) Est GFR (Non-Af Amer) Glucose POC Glucose Lactic Acid Calcium Total Bilirubin Direct Bilirubin Neonat Total Bilirubin Neonat Direct Bilirubin Neonat Indirect Bili AST ALT Alkaline Phosphatase Troponin I 0.038 NT-Pro-B Natriuret Pep 8520 H Total Protein Albumin Urine Color LÓPEZ Urine Appearance SLIGHTLY-CLOUDY Urine pH 5.0 Ur Specific [place] 1.018 Urine Protein NEGATIVE Urine Glucose (UA) NEGATIVE Urine Ketones NEGATIVE Urine Blood NEGATIVE Urine Nitrite NEGATIVE Urine Bilirubin NEGATIVE Urine Urobilinogen 4.0 H Ur Leukocyte Esterase SMALL H Urine WBC (Auto) 9 Urine RBC (Auto) 1 Urine Bacteria (Auto) 3+ Squamous Epi Cells Auto 2 Urine Mucus (Auto) RARE Urine Ascorbic Acid NEGATIVE C. difficile Tox (PCR) Cancelled Chest X-Ray 12/10/18 14:29 IMPRESSION: Left lung mid and basilar consolidation and moderate pleural effusion. Temp Pulse Resp BP Pulse Ox 16 165/75 H 95 12/10/18 15:20 12/10/18 15:14 12/10/18 15:20 12/10/18 16:33 68 year old male with chronic atrial fibrillation on Eliquis, COPD not on home O2, hypertension and hypothyroidism (now off medications for both), HALLIE not comp liant on CPAP, opiate dependence for chronic low back and joint pains from osteoarthritis presents via EMS with chief complaint of weakness and diarrhea. Patient did have a hospital admission in September 2018 for hypovolemic shock. Patient appears ill, toxic, dehydrated. EMS reported an initial blood pressure of 80/50. Upon arrival to the emergency department patient has not been hypotensive but has been hypoxic, intermittently tachycardic. EKG showed atrial fibrillation with RVR with a heart rate of 133 but heart rate improved and is currently 100. Previous medical records and nursing notes reviewed. Chest x- ray is significant for left lung consolidation and a moderate left-sided pleural effusion. Patient did receive ceftriaxone, Zosyn. Patient accepted to the ICU by Dr. Dueñas - Vital Signs Vital signs: Temp Pulse Resp BP Pulse Ox 16 165/75 H 95 12/10/18 15:20 12/10/18 15:14 12/10/18 15:20 - Laboratory Result Diagrams: 12/10/18 14:30 12/10/18 14:30 Laboratory results interpreted by me: 03/24/19 03/24/19 03/24/19 14:30 14:30 14:30 RDW 14.2 H Seg Neutrophils % 83.1 H Lymphocytes % 12.7 L PT 25.2 H Sodium 136.4 L BUN 27 H Creatinine 1.72 H Est GFR ( Amer) 48 L Est GFR (Non-Af Amer) 40 L Lactic Acid Total Bilirubin 1.6 H Direct Bilirubin 1.3 H AST 122 H ALT 104 H Alkaline Phosphatase 135 H NT-Pro-B Natriuret Pep Total Protein 5.1 L Albumin 2.4 L Urine Urobilinogen Ur Leukocyte Esterase 12/10/18 12/10/18 12/10/18 14:30 14:30 15:00 RDW Seg Neutrophils % Lymphocytes % PT Sodium BUN Creatinine Est GFR ( Amer) Est GFR (Non-Af Amer) Lactic Acid 2.8 H Total Bilirubin Direct Bilirubin AST ALT Alkaline Phosphatase NT-Pro-B Natriuret Pep 8520 H Total Protein Albumin Urine Urobilinogen 4.0 H Ur Leukocyte Esterase SMALL H - Diagnostic Test Radiology reviewed: Image reviewed, Reports reviewed - EKG Interpretation by Me Rate: Tachycardia Rhythm: A.Fib When compared to previous EKG there are: No significant change Critical Care Note - Critical Care Note Total time excluding time spent on procedures (mins): 40 - Minutes of critical care time spent in direct contact evaluating and reevaluating the patient, treating symptoms, reviewing labs and studies and speaking with family and consultants excluding any procedures Discharge - Discharge Clinical Impression: Dehydration, Healthcare-associated pneumonia, Acute kidney injury, Pleural effusion, Elevated liver enzymes, Sacral decubitus ulcer, stage II, Fungal rash of trunk Atrial fibrillation Qualifiers: Atrial fibrillation type: chronic Qualified Code(s): I48.2 - Chronic atrial fibrillation COPD (chronic obstructive pulmonary disease) Qualifiers: COPD type: unspecified COPD Qualified Code(s): J44.9 - Chronic obstructive pulmonary disease, unspecified Sepsis Qualifiers: Sepsis type: sepsis due to unspecified organism Qualified Code(s): A41.9 - Sepsis, unspecified organism Condition: Fair Disposition: ADMITTED INPATIENT Admitting Provider: Hospitalist Unit Admitted: ICU Referrals: BRAN CERNA PA-C [Primary Care Provider] - Follow up as needed
[2018-12-10 14:37] LABS: ABSOLUTE MONOCYTES (AUTO) 0.3 10^3/uL (0.1-1.4); ABSOLUTE NEUT (AUTO) 6.3 10^3/uL (1.7-8.2); BASOPHILS % (AUTO) 0.3 % (0-2); HEMATOCRIT 45.3 % (37.9-51.0); HEMOGLOBIN 14.9 g/dL (13.5-17.0); LYMPHOCYTES % (AUTO) 12.7 % (13-45); MEAN CORPUSCULAR HEMOGLOBIN 31.4 pg (27.0-33.4); MEAN CORPUSCULAR HGB CONC 32.8 g/dL (32.0-36.0); MEAN CORPUSCULAR VOLUME 96 fl (80-97); MONOCYTES % (AUTO) 3.9 % (3-13); PLATELET COUNT 240 10^3/uL (150-450); RED BLOOD COUNT 4.73 10^6/uL (4.35-5.55); RED CELL DISTRIBUTION WIDTH 14.2 % (11.5-14.0); SEGMENTED NEUTROPHILS % (AUTO) 83.1 % (42-78); TOTAL CELLS COUNTED % (AUTO) 100 %; WHITE BLOOD COUNT 7.6 10^3/uL (4.0-10.5)
[2018-12-10 14:40] LABS: VENOUS BLOOD BASE EXCESS 0.2 mmol/L; VENOUS BLOOD HCO3 24.5 mmol/L (20-32); VENOUS BLOOD PCO2 38.7 mmHg (35-63); VENOUS BLOOD PH 7.42 (7.30-7.42)
--- NOTE | 2018-12-10 14:50 | RADIOLOGY REPORT (SQ) ---
EXAM DESCRIPTION: CHEST SINGLE VIEW COMPLETED DATE/TIME: 12/10/2018 2:43 pm REASON FOR STUDY: hypoxic COMPARISON: 09/28/2018 TECHNIQUE: Single frontal radiographic view of the chest acquired. NUMBER OF VIEWS: One view. LIMITATIONS: None. FINDINGS: LUNGS AND PLEURA: No pneumothorax. Left lung mid and basilar consolidation and moderate p leural effusion. Right lung appears clear. MEDIASTINUM AND HILAR STRUCTURES: Stable. HEART AND VASCULAR STRUCTURES: Stable. BONES: No acute findings. HARDWARE: None in the chest. OTHER: No other significant finding. IMPRESSION: Left lung mid and basilar consolidation and moderate pleural effusion. TECHNICAL DOCUMENTATION: JOB ID: [id number] [place]-72 2010 [employer]- All Rights Reserved Reading location - IP/workstation name: [email or web address]
[2018-12-10 14:54] LABS: INTERNATIONAL RATION (INR) 2.17; PROTHROMBIN TIME 25.2 SEC (11.4-15.4)
[2018-12-10 14:58] LABS: ALANINE AMINOTRANSFERASE 104 U/L (21-72); ALBUMIN 2.4 g/dL (3.5-5.0); ALKALINE PHOSPHATASE 135 U/L (38-126); ANION GAP 10 (5-19); ASPARTATE AMINO TRANSFERASE 122 U/L (17-59); BILIRUBIN,DIRECT 1.3 mg/dL (0.0-0.4); BILIRUBIN,TOTAL 1.6 mg/dL (0.2-1.3); BLOOD UREA NITROGEN 27 mg/dL (7-20); CALCIUM 8.4 mg/dL (8.4-10.2); CARBON DIOXIDE 26 mmol/L (22-30); CHLORIDE 100 mmol/L (98-107); GLUCOSE 82 mg/dL (75-110); POTASSIUM 4.5 mmol/L (3.6-5.0); SODIUM 136.4 mmol/L (137-145); TOTAL PROTEIN 5.1 g/dL (6.3-8.2)
[2018-12-10] MEDS ORDERED: PIPERACILLIN/TAZOBACTAM 3.375 GM VIAL IV ONE (15:09)
[2018-12-10 15:12] LABS: TROPONIN I 0.038 ng/mL
[2018-12-10 15:23] LABS: APPEARANCE,URINE SLIGHTLY-CLOUDY; BILIRUBIN,URINE NEGATIVE (NEGATIVE); COLOR,URINE AMBER; GLUCOSE, URINE NEGATIVE (NEGATIVE); KETONES,URINE NEGATIVE (NEGATIVE); LEUKOCYTE ESTERASE,URINE SMALL (NEGATIVE); NITRITE,URINE NEGATIVE (NEGATIVE); PROTEIN,URINE NEGATIVE (NEGATIVE); URINE SPECIFIC GRAVITY 1.018
[2018-12-10] MEDS ORDERED: RINGERS SOLUTION,LACTATED 1,000 ML IV PRN (16:19)
[2018-12-10] MEDS ORDERED: IPRATROPIUM/ALBUTEROL 0.5-2.5 MG/3 ML AMPUL NEB PRN (16:19)
--- NOTE | 2018-12-10 16:41 | PDOC H&P ---
History of Present Illness Admission Date/PCP: BRAN CERNA PA-C History of Present Illness: AMELIA BOB is a 68 year old male who is unable to provide me much of a history. From the chart I can tell that he has a history of atrial fibrillation and apparently had C. difficile at one point in the hospital. In the chart it says he came here because of diarrhea for a few days. He apparently had a solid bowel movement in the ER. He is not had a fever. He may have had a cough which is been nonproductive. Had evidence of multisystem organ failure including elevated liver enzymes and bilirubin along with an elevated creatinine, elevated lactate, and a congested sounding cough with a left pleural effusion and left midlung infiltrate on chest CT. He is being admitted for further evaluation his BNP is elevated and he does have some edema but his urine is very concentrated and he appears to be intravascularly volume depleted. Past Medical History Cardiac Medical History: Reports: Atrial Fibrillation, Coronary Artery Disease - A-FIB Denies: Myocardial Infarction, Hypertension Pulmonary Medical History: Reports: Chronic Obstructive Pulmonary Disease (COPD), Pneumonia Denies: Asthma, Bronchitis Neurological Medical History: Denies: Seizures Endocrine Medical History: Reports: Hypothyroidism Musculoskeltal Medical History: Reports: Arthritis - DDD Hematology: Denies: Anemia Past Surgical History Past Surgical History: Reports: Gastric Bypass Surgery - 1993, Orthopedic Surgery - Herniated Disc Repair, Bilateral Knee Replacement Social History Lives with: Family Smoking Status: Former Smoker Frequency of Alcohol Use: None Hx Recreational Drug Use: No Drugs: None Hx Prescription Drug Abuse: No Family History Family History: Other - Unable to obtain due to his mental status Parental Family History Reviewed: No - Unable to obtain Children Family History Reviewed: No - Unable to obtain Sibling(s) Family History Reviewed.: No - Unable to obtain Medication/Allergy Home Medications: Apixaban [Eliquis 5 mg Tablet] 5 mg PO BID 09/22/18 Diphenoxylate HCl/Atrop Sulf [Lomotil 2.5 mg Tablet] 1 tab PO TIDP PRN 09/22/18 Gabapentin [Neurontin 300 mg Capsule] 300 mg PO QHS 09/22/18 Metoprolol Succinate [Toprol Xl 50 mg Tab.sr] 50 mg PO DAILY 09/22/18 Oxycodone HCl [Oxycodone HCl 10 MG Tablet] 10 mg PO Q4HP PRN 09/22/18 Acetaminophen [Tylenol 325 mg Tablet] 650 mg PO Q6HP PRN tablet 10/04/18 Digoxin [Lanoxin 0.125 mg Tablet] 0.125 mg PO DAILY #30 tablet 10/04/18 Diltiazem HCl [Cardizem 90 mg Tablet] 1 tab PO Q8 #90 tab 10/04/18 Pantoprazole Sodium [Protonix] 40 mg PO QAM #60 tablet. 10/04/18 Allergies/Adverse Reactions: No Known Allergies Allergy (Verified 09/21/18 10:36) Review of Systems ROS unobtainable: Due to mental status Physical Exam Vital Signs: Temp Pulse Resp BP Pulse Ox 16 165/75 H 95 12/10/18 15:20 12/10/18 15:14 12/10/18 15:20 Intake & Output 12/09/18 12/10/18 12/11/18 06:59 06:59 06:59 Intake Total 1050 Balance 1050 Weight 113 kg General appearance: PRESENT: disheveled, mild distress, morbidly obese Head exam: PRESENT: atraumatic, normocephalic Eye exam: PRESENT: EOMI, PERRLA. ABSENT: conjunctival injection, nystagmus, scleral icterus Ear exam: PRESENT: normal external ear exam Mouth exam: PRESENT: dry mucosa, neck supple Teeth exam: PRESENT: poor dentation Throat exam: PRESENT: other - Could not assess, BiPAP mask was on Neck exam: PRESENT: full ROM. ABSENT: carotid bruit, JVD - Difficult to assess due to body habitus, lymphadenopathy, meningismus, thyromegaly Respiratory exam: PRESENT: crackles - Left midlung, decreased breath sounds - left base, unlabored. ABSENT: accessory muscle use, prolonged expiratory phas, rhonchi, symmetrical, tachypnea, wheezes Cardiovascular exam: PRESENT: irregular rhythm Pulses: PRESENT: normal carotid pulses Vascular exam: PRESENT: normal capillary refill GI/Abdominal exam: PRESENT: normal bowel sounds, soft. ABSENT: distended, guarding, rebound, tenderness Extremities exam: PRESENT: pedal edema, +2 edema - Lower extremity below the knee bilaterally. ABSENT: clubbing Musculoskeletal exam: PRESENT: normal inspection. ABSENT: deformity Neurological exam: PRESENT: altered, oriented to person, other - Could not adequately assess the neurological system due to the patient's inability to comply with all aspects of examination Psychiatric exam: PRESENT: flat affect Skin exam: PRESENT: dry, warm, other - Stage II pressure sore on the sacrum present on admission Results Laboratory Results: 12/10/18 14:30 12/10/18 14:30 12/10/18 12/10/18 12/10/18 14:30 14:30 14:30 WBC 7.6 RBC 4.73 Hgb 14.9 Hct 45.3 MCV 96 MCH 31.4 MCHC 32.8 RDW 14.2 H Plt Count 240 Seg Neutrophils % 83.1 H Lymphocytes % 12.7 L Monocytes % 3.9 Eosinophils % 0.0 Basophils % 0.3 Absolute Neutrophils 6.3 Absolute Lymphocytes 1.0 Absolute Monocytes 0.3 Absolute Eosinophils 0.0 Absolute Basophils 0.0 VBG pH VBG pCO2 VBG HCO3 VBG Base Excess Sodium 136.4 L Potassium 4.5 Chloride 100 Carbon Dioxide 26 Anion Gap 10 BUN 27 H Creatinine 1.72 H Est GFR ( Amer) 48 L Est GFR (Non-Af Amer) 40 L Glucose 82 Lactic Acid 2.8 H Calcium 8.4 Total Bilirubin 1.6 H AST 122 H ALT 104 H Alkaline Phosphatase 135 H Total Protein 5.1 L Albumin 2.4 L Urine Color Urine Appearance Urine pH Ur Specific [place] Urine Protein Urine Glucose (UA) Urine Ketones Urine Blood Urine Nitrite Ur Leukocyte Esterase Urine WBC (Auto) Urine RBC (Auto) 12/10/18 12/10/18 14:30 15:00 WBC RBC Hgb Hct MCV MCH MCHC RDW Plt Count Seg Neutrophils % Lymphocytes % Monocytes % Eosinophils % Basophils % Absolute Neutrophils Absolute Lymphocytes Absolute Monocytes Absolute Eosinophils Absolute Basophils VBG pH 7.42 VBG pCO2 38.7 VBG HCO3 24.5 VBG Base Excess 0.2 Sodium Potassium Chloride Carbon Dioxide Anion Gap BUN Creatinine Est GFR ( Amer) Est GFR (Non-Af Amer) Glucose Lactic Acid Calcium Total Bilirubin AST ALT Alkaline Phosphatase Total Protein Albumin Urine Color LÓPEZ Urine Appearance SLIGHTLY-CLOUDY Urine pH 5.0 Ur Specific [place] 1.018 Urine Protein NEGATIVE Urine Glucose (UA) NEGATIVE Urine Ketones NEGATIVE Urine Blood NEGATIVE Urine Nitrite NEGATIVE Ur Leukocyte Esterase SMALL H Urine WBC (Auto) 9 Urine RBC (Auto) 1 12/10/18 14:30 Troponin I 0.038 NT-Pro-B Natriuret Pep 8520 H Impressions: Chest X-Ray 12/10/18 14:29 IMPRESSION: Left lung mid and basilar consolidation and moderate pleural effusion. Assessment and Plan - Diagnosis (1) Sepsis Qualifiers: Sepsis type: sepsis due to unspecified organism Qualified Code(s): A41.9 - Sepsis, unspecified organism Is this a current diagnosis for this admission?: Yes Plan: Suspected to be due to a left lower lobe pneumonia and biotics have been started. Cultures are pending. Monitoring organ function and tissue perfusion (2) Healthcare-associated pneumonia Is this a current diagnosis for this admission?: Yes Plan: As noted above (3) Acute kidney injury Is this a current diagnosis for this admission?: Yes Plan: Due to sepsis. Given IV fluids and monitoring his urine output (4) Atrial fibrillation Qualifiers: Atrial fibrillation type: chronic Qualified Code(s): I48.2 - Chronic atrial fibrillation Is this a current diagnosis for this admission?: Yes Plan: Continue anticoagulation and rate control drugs, will hold Cardizem for now due to his blood pressures, will continue the metoprolol and digoxin (6) Pleural effusion Is this a current diagnosis for this admission?: Yes Plan: May need to have a thoracentesis of the fluid sent for culture (7) Sacral decubitus ulcer, stage II Is this a current diagnosis for this admission?: Yes Plan: Present on admission. Local wound care. - Time Time Spent with patient: 35 or more minutes - Inpatient Certification Based on my medical assessment, after consideration of the patient's comorbidities, presenting symptoms, or acuity I expect that the services needed warrant INPATIENT care.: Yes I certify that my determination is in accordance with my understanding of Medicare's requirements for reasonable and necessary INPATIENT services [42 CFR 412.3e].: Yes Medical Necessity: Significant Comorbidiites Make Outpatient Treatment Too Risky, Need Close Monitoring Due to Risk of Patient Decompensation, Need For IV Fluids, Need For Continuous Telemetry Monitoring, Need for IV Antibiotics
[2018-12-10] MEDS ORDERED: NOREPINEPHRINE BITARTRATE INJ/PF 4 MG/4 ML SDV IV ONE (18:51)
[2018-12-10] MEDS: DEXTROSE 5%-WATER 250 ML with NOREPINEPHRINE BITARTRATE 4 MG IV PRN ×2 (18:59)
[2018-12-10] MEDS ORDERED: PHENYLEPHRINE HCL INJ/PF 10 MG/1 ML SDV ONE ×2 (20:24)
--- NOTE | 2018-12-10 20:28 | Operative Report ---
Bedside Procedure - History of Present Illness Indication for Procedure: sepsis. Surgeon: NICK WEINBERG - Central Line Right Subclavian Time completed: 08:30 - pm Consent obtained: Yes Central line pre-insertion: Sterile PPE donned Central line lumen type: Triple Anesthetic type: 1% Lidocaine mL's of anesthesia: 5 Ultrasound guided: No Line secured with sutures: Yes Central line post-insertion: Blood return from lumens, Biopatch applied, Sutured, Sterile dressing applied, Position confirmed w/ CXR Number of attempts: 1 Complications: No Notes: 12/10/18 20:[address] for sepsis pt on levophed.
[2018-12-10] MEDS: DEXTROSE 5%-WATER 250 ML with PHENYLEPHRINE HCL 40 MG IV PRN ×2 (20:46)
[2018-12-10] MEDS: NORMAL SALINE 1000 ML 1,000 ML IV PRN (20:54)
--- NOTE | 2018-12-10 21:11 | RADIOLOGY REPORT (SQ) ---
EXAM DESCRIPTION: XR CHEST 1 VIEW COMPLETED DATE/TME: 12/10/2018 00:00 CLINICAL HISTORY: central line placement confirmation COMPARISON: Same day earlier time FINDINGS: Patient is rotated. There is a right central venous catheter with the tip ending at the level of the superior vena cava. There is atherosclerosis. EKG leads project over the chest. There is no pneumothorax. Blunted left costophrenic angle is unchanged. IMPRESSION: Interval placement of a right central venous catheter. No pneumothorax.
--- NOTE | 2018-12-10 23:55 | EKG REPORT ---
SEVERITY:- ABNORMAL ECG - ATRIAL FIBRILLATION, V-RATE 74-165 PROBABLE INFERIOR INFARCT, AGE INDETERMINATE ABNRM R PROG, CONSIDER ASMI OR LEAD PLACEMENT LATERAL LEADS ARE ALSO INVOLVED : Confirmed by: Duglas Rincon 10-Dec-2018 23:55:09
[2018-12-11] MEDS ORDERED: NOREPINEPHRINE BITARTRATE INJ/PF 4 MG/4 ML SDV IV ONE ×2 (00:54→05:49)
[2018-12-11] MEDS ORDERED: PHENYLEPHRINE HCL INJ/PF 10 MG/1 ML SDV ONE (01:15)
[2018-12-11] MEDS ORDERED: VASOPRESSIN INJ 20 UNIT/1 ML VIAL ONE (01:27)
[2018-12-11] MEDS ORDERED: DEXTROSE 5%-WATER 250 ML with VASOPRESSIN 100 UNIT IV PRN ×2 (01:31)
[2018-12-11] MEDS: DEXTROSE 5%-WATER 250 ML with NOREPINEPHRINE BITARTRATE 4 MG IV PRN ×10 (01:52→23:50)
[2018-12-11] MEDS: DEXTROSE 5%-WATER 250 ML with PHENYLEPHRINE HCL 40 MG IV PRN ×4 (01:54→11:47)
[2018-12-11] MEDS ORDERED: PIPERACILLIN/TAZOBACTAM 3.375 GM VIAL IV ONE (02:53)
[2018-12-11] MEDS: PIPERACILLIN SODIUM/TAZOBACTAM 3.375 GM in NORMAL SALINE 100 ML IV SCH ×5 (03:51→21:32)
[2018-12-11] MEDS ORDERED: DIGOXIN INJ 0.5 MG/2 ML AMPULE IV ONE (04:00)
[2018-12-11 05:12] LABS: HEMATOCRIT 39.2 % (37.9-51.0); MEAN CORPUSCULAR HEMOGLOBIN 31.8 pg (27.0-33.4); MEAN CORPUSCULAR HGB CONC 33.3 g/dL (32.0-36.0); MEAN CORPUSCULAR VOLUME 95 fl (80-97); PLATELET COUNT 220 10^3/uL (150-450); RED CELL DISTRIBUTION WIDTH 14.1 % (11.5-14.0); WHITE BLOOD COUNT 9.5 10^3/uL (4.0-10.5)
[2018-12-11] MEDS: APIXABAN 5 MG TABLET PO SCH ×3 (05:24→17:37)
[2018-12-11 05:38] LABS: ALANINE AMINOTRANSFERASE 84 U/L (21-72); ALBUMIN 1.9 g/dL (3.5-5.0); ALKALINE PHOSPHATASE 102 U/L (38-126); ANION GAP 9 (5-19); ASPARTATE AMINO TRANSFERASE 76 U/L (17-59); BILIRUBIN,DIRECT 1.1 mg/dL (0.0-0.4); BILIRUBIN,TOTAL 1.4 mg/dL (0.2-1.3); BLOOD UREA NITROGEN 28 mg/dL (7-20); CALCIUM 7.4 mg/dL (8.4-10.2); CARBON DIOXIDE 23 mmol/L (22-30); CHLORIDE 104 mmol/L (98-107); GLUCOSE 113 mg/dL (75-110); POTASSIUM 4.5 mmol/L (3.6-5.0); SODIUM 135.5 mmol/L (137-145); TOTAL PROTEIN 4.1 g/dL (6.3-8.2)
[2018-12-11] MEDS: DIGOXIN 0.125 MG TABLET PO SCH (09:10)
[2018-12-11] MEDS: PANTOPRAZOLE SODIUM 40 MG TABLET.DR PO SCH (09:11)
[2018-12-11] MEDS: METOPROLOL SUCCINATE 50 MG TAB.SR.24H PO SCH (09:12)
[2018-12-11] MEDS: NORMAL SALINE 1000 ML 1,000 ML IV PRN ×2 (09:13→22:25)
[2018-12-11] MEDS ORDERED: VANCOMYCIN HCL 0 MG in DEXTROSE 5%-WATER 250 ML IV NR (15:45)
--- NOTE | 2018-12-11 15:46 | PDOC PROGRESS REPORT ---
Subjective Progress Note for:: 12/11/18 Subjective:: Reports doing better. Still with cough, but improving. No fever or chills, no chest pain or palpitations. Breathing improving. Reason For Visit: SEPSIS,AUSTIN,LLL PNA Physical Exam Vital Signs: Temp Pulse Resp BP Pulse Ox 97.7 F 81 22 H 90/69 L 100 12/11/18 12:00 12/11/18 12:00 12/11/18 12:00 12/11/18 12:00 12/11/18 12:00 Intake & Output 12/10/18 12/11/18 12/12/18 06:59 06:59 06:59 Intake Total 5909 521 Output Total 175 130 Balance 5734 391 Weight 123.9 kg 123.9 kg GENERAL: Well-developed, no acute distress HEENT: Normocephalic/atraumatic NECK supple, no JVD CARDIOVASCULAR: Irregularly irregular, normal S1-S2 LUNGS: Few basilar crackles bilaterally ABDOMEN: Soft, NT, NL bowel sounds EXTREMITIES: No edema, clubbing, cyanosis NEUROLOGICAL: Alert, oriented x 3, no focal weakness Results Laboratory Results: 12/11/18 04:48 12/11/18 04:48 12/10/18 12/10/18 12/10/18 14:30 14:30 14:30 WBC 7.6 RBC 4.73 Hgb 14.9 Hct 45.3 MCV 96 MCH 31.4 MCHC 32.8 RDW 14.2 H Plt Count 240 Seg Neutrophils % 83.1 H Lymphocytes % 12.7 L Monocytes % 3.9 Eosinophils % 0.0 Basophils % 0.3 Absolute Neutrophils 6.3 Absolute Lymphocytes 1.0 Absolute Monocytes 0.3 Absolute Eosinophils 0.0 Absolute Basophils 0.0 VBG pH VBG pCO2 VBG HCO3 VBG Base Excess Sodium 136.4 L Potassium 4.5 Chloride 100 Carbon Dioxide 26 Anion Gap 10 BUN 27 H Creatinine 1.72 H Est GFR ( Amer) 48 L Est GFR (Non-Af Amer) 40 L Glucose 82 Lactic Acid 2.8 H Calcium 8.4 Total Bilirubin 1.6 H AST 122 H ALT 104 H Alkaline Phosphatase 135 H Total Protein 5.1 L Albumin 2.4 L Urine Color Urine Appearance Urine pH Ur Specific [place] Urine Protein Urine Glucose (UA) Urine Ketones Urine Blood Urine Nitrite Ur Leukocyte Esterase Urine WBC (Auto) Urine RBC (Auto) 12/10/18 12/10/18 12/10/18 14:30 15:00 18:56 WBC RBC Hgb Hct MCV MCH MCHC RDW Plt Count Seg Neutrophils % Lymphocytes % Monocytes % Eosinophils % Basophils % Absolute Neutrophils Absolute Lymphocytes Absolute Monocytes Absolute Eosinophils Absolute Basophils VBG pH 7.42 VBG pCO2 38.7 VBG HCO3 24.5 VBG Base Excess 0.2 Sodium Potassium Chloride Carbon Dioxide Anion Gap BUN Creatinine Est GFR ( Amer) Est GFR (Non-Af Amer) Glucose Lactic Acid 2.1 Calcium Total Bilirubin AST ALT Alkaline Phosphatase Total Protein Albumin Urine Color LÓPEZ Urine Appearance SLIGHTLY-CLOUDY Urine pH 5.0 Ur Specific [place] 1.018 Urine Protein NEGATIVE Urine Glucose (UA) NEGATIVE Urine Ketones NEGATIVE Urine Blood NEGATIVE Urine Nitrite NEGATIVE Ur Leukocyte Esterase SMALL H Urine WBC (Auto) 9 Urine RBC (Auto) 1 12/11/18 12/11/18 04:48 04:48 WBC 9.5 RBC 4.10 L Hgb 13.0 L Hct 39.2 MCV 95 MCH 31.8 MCHC 33.3 RDW 14.1 H Plt Count 220 Seg Neutrophils % Lymphocytes % Monocytes % Eosinophils % Basophils % Absolute Neutrophils Absolute Lymphocytes Absolute Monocytes Absolute Eosinophils Absolute Basophils VBG pH VBG pCO2 VBG HCO3 VBG Base Excess Sodium 135.5 L Potassium 4.5 Chloride 104 Carbon Dioxide 23 Anion Gap 9 BUN 28 H Creatinine 1.62 H Est GFR ( Amer) 51 L Est GFR (Non-Af Amer) 42 L Glucose 113 H Lactic Acid Calcium 7.4 L Total Bilirubin 1.4 H AST 76 H ALT 84 H Alkaline Phosphatase 102 Total Protein 4.1 L Albumin 1.9 L Urine Color Urine Appearance Urine pH Ur Specific [place] Urine Protein Urine Glucose (UA) Urine Ketones Urine Blood Urine Nitrite Ur Leukocyte Esterase Urine WBC (Auto) Urine RBC (Auto) 12/10/18 12/11/18 14:30 04:48 Troponin I 0.038 NT-Pro-B Natriuret Pep 8520 H 7630 H Impressions: Chest X-Ray 12/10/18 14:29 IMPRESSION: Left lung mid and basilar consolidation and moderate pleural effusion. Assessment and Plan - Diagnosis (1) Sepsis Qualifiers: Sepsis type: sepsis due to unspecified organism Qualified Code(s): A41.9 - Sepsis, unspecified organism Is this a current diagnosis for this admission?: Yes Plan: Suspected to be due to a left lower lobe pneumonia. He is currently on Zosyn. Blood culture growing gram positive cocci. Will add Vanco for double antibiotics coverage in the setting of sepsis and to cover possible MRSA. Patient still on home pressors, but being titrated down. We also continue IV fluid with normal saline. Follow cultures' sensitivity, urine culture results. (2) Healthcare-associated pneumonia Is this a current diagnosis for this admission?: Yes Plan: As in sepsis above (3) Atrial fibrillation Qualifiers: Atrial fibrillation type: chronic Qualified Code(s): I48.2 - Chronic atrial fibrillation Is this a current diagnosis for this admission?: Yes Plan: Continue anticoagulation and rate control drugs. Holding Cardizem for now due to his blood pressures, but will continue the metoprolol and digoxin (4) Pleural effusion Is this a current diagnosis for this admission?: Yes Plan: May need to have a thoracentesis of the fluid sent for culture (5) Sacral decubitus ulcer, stage II Is this a current diagnosis for this admission?: Yes Plan: Present on admission. Local wound care.
[2018-12-11] MEDS: ACETAMINOPHEN 325 MG TABLET PO PRN (17:38)
[2018-12-11] MEDS ORDERED: NORMAL SALINE 1000 ML 1,000 ML IV ONE (21:15)
[2018-12-11] MEDS: GABAPENTIN 300 MG CAPSULE PO SCH (21:31)
[2018-12-11] MEDS: OXYCODONE HCL IR 5 MG TABLET PO PRN (21:31)
[2018-12-11] MEDS: VANCOMYCIN HCL 1,000 MG in DEXTROSE 5%-WATER 250 ML IV SCH (21:50)
[2018-12-12] MEDS: PIPERACILLIN SODIUM/TAZOBACTAM 3.375 GM in NORMAL SALINE 100 ML IV SCH ×4 (04:03→21:07)
[2018-12-12 04:20] LABS: ABSOLUTE LYMPHOCYTES (AUTO) 1.7 10^3/uL (0.5-4.7); ABSOLUTE MONOCYTES (AUTO) 0.4 10^3/uL (0.1-1.4); ABSOLUTE NEUT (AUTO) 6.5 10^3/uL (1.7-8.2); BASOPHILS % (AUTO) 0.4 % (0-2); EOSINOPHILS % (AUTO) 0.1 % (0-6); HEMATOCRIT 35.1 % (37.9-51.0); HEMOGLOBIN 11.8 g/dL (13.5-17.0); LYMPHOCYTES % (AUTO) 19.3 % (13-45); MEAN CORPUSCULAR HGB CONC 33.6 g/dL (32.0-36.0); MEAN CORPUSCULAR VOLUME 95 fl (80-97); MONOCYTES % (AUTO) 4.3 % (3-13); PLATELET COUNT 163 10^3/uL (150-450); RED BLOOD COUNT 3.69 10^6/uL (4.35-5.55); RED CELL DISTRIBUTION WIDTH 14.1 % (11.5-14.0); SEGMENTED NEUTROPHILS % (AUTO) 75.9 % (42-78); TOTAL CELLS COUNTED % (AUTO) 100 %; WHITE BLOOD COUNT 8.6 10^3/uL (4.0-10.5)
[2018-12-12 04:45] LABS: ALANINE AMINOTRANSFERASE 67 U/L (21-72); ALBUMIN 1.7 g/dL (3.5-5.0); ALKALINE PHOSPHATASE 114 U/L (38-126); ANION GAP 11 (5-19); ASPARTATE AMINO TRANSFERASE 69 U/L (17-59); BILIRUBIN,DIRECT 1.1 mg/dL (0.0-0.4); BILIRUBIN,TOTAL 1.3 mg/dL (0.2-1.3); BLOOD UREA NITROGEN 25 mg/dL (7-20); CARBON DIOXIDE 21 mmol/L (22-30); CHLORIDE 103 mmol/L (98-107); GLUCOSE 135 mg/dL (75-110); POTASSIUM 3.7 mmol/L (3.6-5.0); SODIUM 134.8 mmol/L (137-145); TOTAL PROTEIN 3.9 g/dL (6.3-8.2)
[2018-12-12 05:03] LABS: CALCIUM 6.9 mg/dL (8.4-10.2)
[2018-12-12] MEDS: DEXTROSE 5%-WATER 250 ML with NOREPINEPHRINE BITARTRATE 4 MG IV PRN ×4 (06:05→14:54)
[2018-12-12] MEDS: METOPROLOL SUCCINATE 50 MG TAB.SR.24H PO SCH (09:18)
[2018-12-12] MEDS: DIGOXIN 0.125 MG TABLET PO SCH (09:21)
[2018-12-12] MEDS: PANTOPRAZOLE SODIUM 40 MG TABLET.DR PO SCH (09:21)
[2018-12-12] MEDS: VANCOMYCIN HCL 1,000 MG in DEXTROSE 5%-WATER 250 ML IV SCH ×2 (09:29→21:07)
[2018-12-12] MEDS: NORMAL SALINE 1000 ML 1,000 ML IV PRN ×2 (09:29→21:44)
[2018-12-12] MEDS: APIXABAN 5 MG TABLET PO SCH ×2 (11:13→17:19)
--- NOTE | 2018-12-12 11:43 | Operative Report ---
Bedside Procedure - History of Present Illness Indication for Procedure: sepsis Surgeon: NICK WEINBERG - Central Line Right Subclavian Time completed: 11:42 Consent obtained: Yes Central line size (Fr.): 16 Central line lumen type: Triple Anesthetic type: 1% Lidocaine mL's of anesthesia: 2 Ultrasound guided: No CM at insertion site: 18 Line secured with sutures: Yes Central line post-insertion: Blood return from lumens, Sutured Number of attempts: 0 - central line manager exchange wire Complications: No
--- NOTE | 2018-12-12 12:30 | RADIOLOGY REPORT (SQ) ---
EXAM DESCRIPTION: CHEST SINGLE VIEW COMPLETED DATE/TIME: 12/12/2018 12:20 pm REASON FOR STUDY: Confirm central line placement COMPARISON: 12/10/2018 EXAM PARAMETERS: NUMBER OF VIEWS: One view. TECHNIQUE: Single frontal radiographic view of the chest acquired. RADIATION DOSE: NA LIMITATIONS: None. FINDINGS: LUNGS AND PLEURA: Aeration appears slightly improved in the left base. There is a persist ent small left effusion. There is stable or left retrocardiac airspace disease most likely atelectas is. MEDIASTINUM AND HILAR STRUCTURES: No masses. Contour normal. HEART AND VASCULAR STRUCTURES: Heart remains enlarged. No overt failure. BONES: No acute findings. HARDWARE: None in the chest. OTHER: No other significant finding. IMPRESSION: Persistent small left effusion and left basilar airspace disease. Overall improved from prior study. TECHNICAL DOCUMENTATION: JOB ID: [id number] [employer]- All Rights Reserved Reading location - IP/workstation name: [email or web address]
[2018-12-12] MEDS: CALCIUM CARBONATE 250 MG/VITAMIN D3 125 UNIT TABLET PO SCH ×2 (12:35→17:05)
--- NOTE | 2018-12-12 16:29 | PDOC PROGRESS REPORT ---
Subjective Progress Note for:: 12/12/18 Subjective:: This is 68 years old male patient with past medical history of chronic atrial fibrillation, coronary artery disease, COPD, hypertension and hypothyroidism presented with generalized weakness and diarrhea. Patient has been treated as a case of healthcare associated pneumonia with Zosyn and vancomycin. Not patient was admitted in September 2018 for hypovolemic shock. His urine culture is positive for E. coli which is pansensitive and his blood culture grew gram-positive cocci in cluster and the final report is pending. I seen patient resting the bed is not in pain or distress. Reason For Visit: SEPSIS,AUSTIN,LLL PNA Physical Exam Vital Signs: Temp Pulse Resp BP Pulse Ox 96.6 F L 73 14 111/74 99 12/12/18 14:27 12/12/18 14:00 12/12/18 14:27 12/12/18 14:27 12/12/18 14:27 Intake & Output 12/11/18 12/12/18 12/13/18 06:59 06:59 06:59 Intake Total 5909 2694 3185 Output Total 175 740 330 Balance 5734 1954 2855 Weight 123.9 kg 126.8 kg General appearance: PRESENT: no acute distress Head exam: PRESENT: atraumatic Ear exam: PRESENT: bleeding - Left ear Mouth exam: PRESENT: moist Neck exam: ABSENT: carotid bruit, JVD, lymphadenopathy, thyromegaly Respiratory exam: PRESENT: crackles, rhonchi Cardiovascular exam: PRESENT: irregular rhythm GI/Abdominal exam: PRESENT: normal bowel sounds, soft. ABSENT: distended, gua rding, mass, organolmegaly, rebound, tenderness Neurological exam: PRESENT: alert, awake Results Laboratory Results: 12/12/18 04:08 12/12/18 04:08 12/12/18 12/12/18 04:08 04:08 WBC 8.6 RBC 3.69 L Hgb 11.8 L Hct 35.1 L MCV 95 MCH 32.0 MCHC 33.6 RDW 14.1 H Plt Count 163 Seg Neutrophils % 75.9 Lymphocytes % 19.3 Monocytes % 4.3 Eosinophils % 0.1 Basophils % 0.4 Absolute Neutrophils 6.5 Absolute Lymphocytes 1.7 Absolute Monocytes 0.4 Absolute Eosinophils 0.0 Absolute Basophils 0.0 Sodium 134.8 L Potassium 3.7 Chloride 103 Carbon Dioxide 21 L Anion Gap 11 BUN 25 H Creatinine 1.18 Est GFR ( Amer) > 60 Est GFR (Non-Af Amer) > 60 Glucose 135 H Calcium 6.9 L* Total Bilirubin 1.3 AST 69 H ALT 67 Alkaline Phosphatase 114 Total Protein 3.9 L Albumin 1.7 L 12/10/18 15:00 Catheterized Urine Urine Culture - Final Escherichia Coli 12/10/18 12/11/18 12/12/18 14:30 04:48 04:08 Troponin I 0.038 NT-Pro-B Natriuret Pep 8520 H 7630 H 8760 H Impressions: Chest X-Ray 12/12/18 11:29 IMPRESSION: Persistent small left effusion and left basilar airspace disease. Overall improved from prior study. Assessment and Plan - Diagnosis (1) Sepsis Qualifiers: Sepsis type: sepsis due to unspecified organism Qualified Code(s): A41.9 - Sepsis, unspecified organism Is this a current diagnosis for this admission?: Yes Plan: Possibly urinary tract or pulmonary origin origin. (2) Healthcare-associated pneumonia Is this a current diagnosis for this admission?: Yes Plan: I will continue with Zosyn and vancomycin. (3) Acute kidney injury Is this a current diagnosis for this admission?: Yes Plan: Resolved. (4) Hypocalcemia Is this a current diagnosis for this admission?: Yes Plan: Probably associated with his hypoalbuminemia. I requested ionized fraction of calcium. Patient started on calcium carbonate with vitamin D. (5) Chronic a-fib Is this a current diagnosis for this admission?: Yes Plan: Rate controlled. (6) Pleural effusion Is this a current diagnosis for this admission?: Yes Plan: Possibly parapneumonic effusion (7) Opiate dependence due to chronic pain Is this a current diagnosis for this admission?: Yes Plan: Management per his primary care physician.
[2018-12-12] MEDS: GABAPENTIN 300 MG CAPSULE PO SCH (21:07)
[2018-12-12] MEDS: OXYCODONE HCL IR 5 MG TABLET PO PRN (21:44)
[2018-12-13] MEDS: DEXTROSE 5%-WATER 250 ML with NOREPINEPHRINE BITARTRATE 4 MG IV PRN ×6 (01:09→17:09)
[2018-12-13] MEDS: PIPERACILLIN SODIUM/TAZOBACTAM 3.375 GM in NORMAL SALINE 100 ML IV SCH ×4 (02:28→21:43)
[2018-12-13 05:13] LABS: HEMATOCRIT 36.7 % (37.9-51.0); HEMOGLOBIN 12.3 g/dL (13.5-17.0); MEAN CORPUSCULAR HEMOGLOBIN 31.8 pg (27.0-33.4); MEAN CORPUSCULAR HGB CONC 33.5 g/dL (32.0-36.0); MEAN CORPUSCULAR VOLUME 95 fl (80-97); PLATELET COUNT 132 10^3/uL (150-450); RED BLOOD COUNT 3.86 10^6/uL (4.35-5.55); RED CELL DISTRIBUTION WIDTH 14.1 % (11.5-14.0); WHITE BLOOD COUNT 7.5 10^3/uL (4.0-10.5)
[2018-12-13 05:24] LABS: ALANINE AMINOTRANSFERASE 96 U/L (21-72); ALBUMIN 1.8 g/dL (3.5-5.0); ALKALINE PHOSPHATASE 223 U/L (38-126); ANION GAP 8 (5-19); ASPARTATE AMINO TRANSFERASE 103 U/L (17-59); BILIRUBIN,TOTAL 1.2 mg/dL (0.2-1.3); BLOOD UREA NITROGEN 20 mg/dL (7-20); CALCIUM 7.3 mg/dL (8.4-10.2); CARBON DIOXIDE 23 mmol/L (22-30); CHLORIDE 104 mmol/L (98-107); GLUCOSE 87 mg/dL (75-110); POTASSIUM 3.6 mmol/L (3.6-5.0); SODIUM 134.8 mmol/L (137-145); TOTAL PROTEIN 3.9 g/dL (6.3-8.2)
[2018-12-13] MEDS: OXYCODONE HCL IR 5 MG TABLET PO PRN ×2 (05:44→21:44)
[2018-12-13] MEDS: PANTOPRAZOLE SODIUM 40 MG TABLET.DR PO SCH (08:18)
[2018-12-13] MEDS: NORMAL SALINE 1000 ML 1,000 ML IV PRN ×2 (08:19→21:45)
[2018-12-13] MEDS ORDERED: MIDODRINE HCL 5 MG TABLET PO ONE (09:04)
[2018-12-13] MEDS: APIXABAN 5 MG TABLET PO SCH ×2 (09:06→17:10)
[2018-12-13] MEDS: DIGOXIN 0.125 MG TABLET PO SCH (09:07)
[2018-12-13] MEDS: CALCIUM CARBONATE 250 MG/VITAMIN D3 125 UNIT TABLET PO SCH ×2 (09:07→17:10)
[2018-12-13] MEDS: METOPROLOL SUCCINATE 50 MG TAB.SR.24H PO SCH (09:27)
[2018-12-13] MEDS: VANCOMYCIN HCL 1,000 MG in DEXTROSE 5%-WATER 250 ML IV SCH (09:49)
[2018-12-13] MEDS: MIDODRINE HCL 5 MG TABLET PO SCH ×2 (09:59→17:10)
[2018-12-13 10:21] LABS: VANCOMYCIN,TROUGH 11.1 ug/mL (5.0-20.0)
--- NOTE | 2018-12-13 10:43 | RADIOLOGY REPORT (SQ) ---
EXAM DESCRIPTION: CT CHEST WITHOUT COMPLETED DATE/TIME: 12/13/2018 10:26 am REASON FOR STUDY: Shortness of breath COMPARISON: Chest radiograph, 12/12/2018 TECHNIQUE: CT scan performed of the chest without intravenous contrast. Images reviewed with lung, soft tissue and bone windows. Reconstructed coronal and sagittal MPR images reviewed. All images st ored on PACS. All CT scanners at this facility use dose modulation, iterative reconstruction, and/or weight based d osing when appropriate to reduce radiation dose to as low as reasonably achievable (ALARA). [facility]: Dose Right [facility]: CareDose [facility]: Dose Right [facility]: Teradose 4D [facility]: [employer] RADIATION DOSE: CT Rad equipment meets quality standard of care and radiation dose reduction techniq ues were employed. CTDIvol: 18.7 mGy. DLP: 729 mGy-cm. mGy. LIMITATIONS: No technical limitations. FINDINGS: LUNGS AND PLEURA: Small, left greater than right bilateral pleural effusions with associat ed atelectasis or consolidation. There are scattered bilateral ground-glass opacities, the largest a nd most conspicuous in the anterior left upper lobe measuring 3.6 x 3.7 cm (series 4, image 49). HILAR AND MEDIASTINAL STRUCTURES: No identified masses or abnormal nodes. No obvious aneurysm. HEART AND VASCULAR STRUCTURES: No aneurysm. No pericardial effusion. Extensive 3 vessel coronary ar andrew calcifications. UPPER ABDOMEN: Severe hepatic steatosis. THYROID AND OTHER SOFT TISSUES: No masses. No adenopathy. BONES: No significant finding. HARDWARE: None in the chest. OTHER: No other significant findings. IMPRESSION: 1. Small, left greater than right bilateral pleural effusions with associated atelectasi s or consolidation. There are scattered bilateral ground-glass opacities, the largest and most consp icuous in the anterior left upper lobe measuring 3.6 x 3.7 cm. These are likely infectious in nature . Recommend follow-up CT in 3 months to ensure resolution. 2. Coronary artery disease. 3. Hepatic steatosis. TECHNICAL DOCUMENTATION: JOB ID: [id number] Quality ID # [id number]: Final reports with documentation of one or more dose reduction techniques (e.g., Au tomated exposure control, adjustment of the mA and/or kV according to patient size, use of iterative reconstruction technique) 2010 [employer]- All Rights Reserved Reading location - IP/workstation name: [email or web address]
--- NOTE | 2018-12-13 12:32 | PDOC PROGRESS REPORT ---
Subjective Progress Note for:: 12/13/18 Subjective:: I seen and examined the patient while resting in bed. Patient is awake alert and oriented. He saturates 96% while he is on 2 L of oxygen via nasal cannula. The only issue with this patient is hypotension this morning his blood pressure is 76/49. He has been on normal saline and Levophed. There is no external blood loss. His stool for occult blood and C. difficile colitis is negative. I started him on midodrine and I consulted Dr. Farfan for his input. Reason For Visit: SEPSIS,AUSTIN,LLL PNA Physical Exam Vital Signs: Temp Pulse Resp BP Pulse Ox 99.0 F 92 16 86/54 L 97 12/13/18 10:00 12/13/18 10:00 12/13/18 10:27 12/13/18 10:27 12/13/18 11:31 Intake & Output 12/12/18 12/13/18 12/14/18 06:59 06:59 06:59 Intake Total 2694 4670 1873 Output Total 740 1725 250 Balance 1954 2945 1623 Weight 126.8 kg 128.4 kg General appearance: PRESENT: no acute distress Head exam: PRESENT: atraumatic Eye exam: PRESENT: conjunctiva pink Mouth exam: PRESENT: moist Neck exam: ABSENT: carotid bruit, JVD, lymphadenopathy, thyromegaly Respiratory exam: PRESENT: decreased breath sounds, wheezes Cardiovascular exam: PRESENT: irregular rhythm GI/Abdominal exam: PRESENT: normal bowel sounds, soft. ABSENT: distended, guarding, mass, organolmegaly, rebound, tenderness Neurological exam: PRESENT: alert, awake, oriented to time, oriented to situation Results Laboratory Results: 12/13/18 04:35 12/13/18 04:35 12/12/18 12/13/18 12/13/18 16:33 04:35 04:35 WBC RBC Hgb Hct MCV MCH MCHC RDW Plt Count Sodium Cancelled Potassium Cancelled Chloride Cancelled Carbon Dioxide Cancelled Anion Gap Cancelled BUN Cancelled Creatinine Cancelled Est GFR ( Amer) Cancelled Est GFR (Non-Af Amer) Cancelled Glucose Cancelled Calcium Cancelled Ionized Calcium Alicia 1.03 L Total Bilirubin AST ALT Alkaline Phosphatase Total Protein Albumin Stool Occult Blood NEGATIVE 12/13/18 12/13/18 04:35 04:35 WBC 7.5 RBC 3.86 L Hgb 12.3 L Hct 36.7 L MCV 95 MCH 31.8 MCHC 33.5 RDW 14.1 H Plt Count 132 L Sodium 134.8 L Potassium 3.6 Chloride 104 Carbon Dioxide 23 Anion Gap 8 BUN 20 Creatinine 0.95 Est GFR ( Amer) > 60 Est GFR (Non-Af Amer) > 60 Glucose 87 Calcium 7.3 L Ionized Calcium Alicia Total Bilirubin 1.2 AST 103 H ALT 96 H Alkaline Phosphatase 223 H Total Protein 3.9 L Albumin 1.8 L Stool Occult Blood 12/10/18 21:34 Stool - Stool - Final 12/10/18 21:34 Stool - Stool Stool Culture - Final NO SALMONELLA, SHIGELLA, CAMPYLOBACTER, OR E.COLI 0157 RECOVERED. NEGATIVE FOR SHIGA TOXINS 1&2. 12/10/18 12/11/18 12/12/18 14:30 04:48 04:08 Troponin I 0.038 NT-Pro-B Natriuret Pep 8520 H 7630 H 8760 H 12/13/18 04:35 Troponin I NT-Pro-B Natriuret Pep [id number] H Impressions: Chest X-Ray 12/12/18 11:29 IMPRESSION: Persistent small left effusion and left basilar airspace disease. Overall improved from prior study. Chest CT 12/13/18 00:00 IMPRESSION: 1. Small, left greater than right bilateral pleural effusions with associated atelectasis or consolidation. There are scattered bilateral ground- glass opacities, the largest and most conspicuous in the anterior left upper lobe measuring 3.6 x 3.7 cm. These are likely infectious in nature. Recommend follow-up CT in 3 months to ensure resolution. 2. Coronary artery disease. 3. Hepatic steatosis. Assessment and Plan - Diagnosis (1) Persistent hypotension Is this a current diagnosis for this admission?: Yes Plan: Etiology is unclear. Despite the hypotension patient is stable. Midodrine added to his regimen and Dr. Farfan consulted for his input. (2) Sepsis Qualifiers: Sepsis type: sepsis due to unspecified organism Qualified Code(s): A41.9 - Sepsis, unspecified organism Is this a current diagnosis for this admission?: Yes Plan: Possibly urinary tract or pulmonary origin origin. (3) Healthcare-associated pneumonia Is this a current diagnosis for this admission?: Yes Plan: I will continue with Zosyn and vancomycin. (4) Acute kidney injury Is this a current diagnosis for this admission?: Yes Plan: Has resolved (5) Hypocalcemia Is this a current diagnosis for this admission?: Yes Plan: Probably associated with his hypoalbuminemia. I requested ionized fraction of calcium. Patient started on calcium carbonate with vitamin D. (6) Chronic a-fib Is this a current diagnosis for this admission?: Yes Plan: Rate controlled. (7) Pleural effusion Is this a current diagnosis for this admission?: Yes Plan: Possibly parapneumonic effusion (8) Opiate dependence due to chronic pain Is this a current diagnosis for this admission?: Yes Plan: Management per his primary care physician.
--- NOTE | 2018-12-13 13:30 | PDOC CONSULTATION ---
Consultation Consult Date: 12/13/18 Attending physician:: CHRISSIE BERNARD Consult reason:: hypotension History of Present Illness Admission Date/PCP: 12/10/18 16:43 BRAN CERNA PA-C History of Present Illness: AMELIA BOB is a 68 year old male, in the ICU currently on levo fed was which apparently has increased since his admission in the past he has been admitted for congestive heart failure echocardiogram in July 2018 which was apparently was difficult to interpret he is a poor historian but he does not have appear to have any pain at this time he does cough up phlegm pale yellow de nies any hemoptysis, rhinorrhea, sore throat, t chest pain, nausea, vomiting or diarrhea. Past Medical History Cardiac Medical History: Reports: Atrial Fibrillation, Coronary Artery Disease - A-FIB Denies: Myocardial Infarction, Hypertension Pulmonary Medical History: Reports: Chronic Obstructive Pulmonary Disease (COPD), Pneumonia Denies: Asthma, Bronchitis Neurological Medical History: Denies: Seizures Endocrine Medical History: Reports: Hypothyroidism Musculoskeltal Medical History: Reports: Arthritis - DDD Skin Medical History: Denies: Eczema, Psoriasis Traumatic Medical History: Denies: Pneumothorax Hematology: Denies: Anemia, Sickle Cell Disease Past Surgical History Past Surgical History: Reports: Gastric Bypass Surgery - 1993, Orthopedic Surgery - Herniated Disc Repair, Bilateral Knee Replacement Social History Information Source: [facility] Records Lives with: Family Smoking Status: Former Smoker Frequency of Alcohol Use: None Hx Recreational Drug Use: No Drugs: None Hx Prescription Drug Abuse: No Family History Family History: Other - Unable to obtain due to his mental status Parental Family History Reviewed: No Children Family History Reviewed: No Sibling(s) Family History Reviewed.: No Medication/Allergy Home Medications: Apixaban [Eliquis 5 mg Tablet] 5 mg PO Q12 12/11/18 Bupropion HCl [Wellbutrin Xl 300mg 24hr Tablet] 300 mg PO DAILY 12/11/18 Digoxin [Lanoxin 0.125 mg Tablet] 0.125 mg PO DAILY 12/11/18 Diltiazem HCl [Diltiazem 24Hr ER] 120 mg PO DAILY 12/11/18 Diphenoxylate HCl/Atrop Sulf [Lomotil 2.5 mg Tablet] 1 tab PO BIDP PRN 12/11/18 Gabapentin [Neurontin 300 mg Capsule] 300 mg PO QHS 12/11/18 Losartan Potassium [Cozaar 25 mg Tablet] 25 mg PO DAILY 12/11/18 Metoprolol Succinate [Toprol Xl 50 mg Tab.sr] 50 mg PO Q12 12/11/18 Oxycodone HCl [Oxycodone HCl 10 MG Tablet] 10 mg PO 5XDP PRN 12/11/18 Oxycodone HCl [Oxycontin] 30 mg PO Q12 12/11/18 Pantoprazole Sodium [Protonix [address] Tablet] 40 mg PO Q6AM 12/11/18 Allergies/Adverse Reactions: No Known Allergies Allergy (Verified 09/21/18 10:36) Review of Systems ROS unobtainable: Due to mental status Physical Exam Vital Signs: Temp Pulse Resp BP Pulse Ox 98.8 F 93 16 84/55 L 100 12/13/18 08:00 12/13/18 08:33 12/13/18 08:00 12/13/18 08:00 12/13/18 08:00 Intake & Output 12/12/18 12/13/18 12/14/18 06:59 06:59 06:59 Intake Total 2694 4670 1519 Output Total 740 1725 125 Balance 1954 2945 1394 Weight 126.8 kg 128.4 kg General appearance: PRESENT: no acute distress, disheveled, morbidly obese. ABSENT: cooperative Head exam: PRESENT: atraumatic, normocephalic Eye exam: PRESENT: conjunctiva pale. ABSENT: nystagmus, periorbital swelling, scleral icterus Mouth exam: PRESENT: dry mucosa, neck supple, tongue midline Teeth exam: PRESENT: poor dentation Neck exam: ABSENT: carotid bruit, full ROM, JVD, lymphadenopathy, meningismus, tenderness, thyromegaly, tracheal deviation, tracheostomy, other Respiratory exam: PRESENT: decreased breath sounds, prolonged expiratory phas, rales, rhonchi, unlabored, wheezes. ABSENT: retraction, stridor Cardiovascular exam: PRESENT: irregular rhythm Pulses: PRESENT: normal radial pulses GI/Abdominal exam: PRESENT: soft Extremities exam: PRESENT: pedal edema. ABSENT: calf tenderness, clubbing, joint swelling Musculoskeletal exam: ABSENT: ambulatory, deformity, dislocation Neurological exam: PRESENT: altered, awake Psychiatric exam: PRESENT: flat affect Skin exam: PRESENT: dry, warm Results Laboratory Results: 12/13/18 04:35 12/13/18 04:35 12/12/18 12/13/18 12/13/18 16:33 04:35 04:35 WBC RBC Hgb Hct MCV MCH MCHC RDW Plt Count Sodium Cancelled Potassium Cancelled Chloride Cancelled Carbon Dioxide Cancelled Anion Gap Cancelled BUN Cancelled Creatinine Cancelled Est GFR ( Amer) Cancelled Est GFR (Non-Af Amer) Cancelled Glucose Cancelled Calcium Cancelled Ionized Calcium Alicia 1.03 L Total Bilirubin AST ALT Alkaline Phosphatase Total Protein Albumin Stool Occult Blood NEGATIVE 12/13/18 12/13/18 04:35 04:35 WBC 7.5 RBC 3.86 L Hgb 12.3 L Hct 36.7 L MCV 95 MCH 31.8 MCHC 33.5 RDW 14.1 H Plt Count 132 L Sodium 134.8 L Potassium 3.6 Chloride 104 Carbon Dioxide 23 Anion Gap 8 BUN 20 Creatinine 0.95 Est GFR ( Amer) > 60 Est GFR (Non-Af Amer) > 60 Glucose 87 Calcium 7.3 L Ionized Calcium Alicia Total Bilirubin 1.2 AST 103 H ALT 96 H Alkaline Phosphatase 223 H Total Protein 3.9 L Albumin 1.8 L Stool Occult Blood 12/10/18 21:34 Stool - Stool - Final 12/10/18 21:34 Stool - Stool Stool Culture - Final NO SALMONELLA, SHIGELLA, CAMPYLOBACTER, OR E.COLI 0157 RECOVERED. NEGATIVE FOR SHIGA TOXINS 1&2. 12/10/18 15:00 Catheterized Urine Urine Culture - Final Escherichia Coli 12/10/18 12/11/18 12/12/18 14:30 04:48 04:08 Troponin I 0.038 NT-Pro-B Natriuret Pep 8520 H 7630 H 8760 H 12/13/18 04:35 Troponin I NT-Pro-B Natriuret Pep [id number] H Impressions: Chest X-Ray 12/12/18 11:29 IMPRESSION: Persistent small left effusion and left basilar airspace disease. Overall improved from prior study. Assessment & Plan - Diagnosis (1) COPD (chronic obstructive pulmonary disease) Qualifiers: COPD type: unspecified COPD Qualified Code(s): J44.9 - Chronic obstructive pulmonary disease, unspecified Is this a current diagnosis for this admission?: Yes Plan: laba+lama duoneb (2) Persistent hypotension Is this a current diagnosis for this admission?: Yes Plan: cvp repeat echo poor oncotic pressure albumin<2.0 (3) Pleural effusion Is this a current diagnosis for this admission?: Yes Plan: very small (4) Chronic atrial fibrillation Is this a current diagnosis for this admission?: Yes Plan: anticoagulated v response stable @ this time (5) Hypoalbuminemia Is this a current diagnosis for this admission?: Yes Plan: liver failure (6) Morbid obesity due to excess calories Is this a current diagnosis for this admission?: Yes Plan: consider nutritional consult - Time Total Critical Time (Minutes): 55
--- NOTE | 2018-12-13 18:00 | XCELERA REPORT ---
[address] [address] Transthoracic Echocardiogram Report Name: AMELIA BOB Age: 68 yrs Gender: Male : 1950 Patient Status: Inpatient Patient Location: ICU^611^A Study Date: 12/13/2018 03:02 PM Height: 68 in Weight: 283 lb BSA: 2.4 m2 Procedure: A complete two-dimensional transthoracic echocardiogram was performed (2D, M-mode, spectral and color flow Doppler). The study was technically difficult with many images being suboptimal in quality. Reason For Study: Persistent hypotension Ordering Physician: BEVERLY JENSEN Performed By: Tracy Mata Interpretation Summary The study was technically difficult with many images being suboptimal in quality. Left ventricular systolic function is low normal. There is mild concentric left ventricular hypertrophy. The left ventricle is normal in size. Regional wall motion abnormalities cannot be excluded due to limited visualization. LV diastolic function could not be adequately assessed due to atrial fibrilation. The right ventricle is moderately dilated. The right ventricle appears to be hypertrophied The right ventricular systolic function is mild to moderately reduced. The left atrium is severely dilated. The right atrium is moderately dilated. There is a trace amount of mitral regurgitation There is no mitral valve stenosis. No aortic regurgitation is present. There is no aortic valve stenosis There is a trace or physiologic amount of tricuspid regurgitation Tricuspid regurgitation jet envelope not well defined to measure RV systolic pressure accurately. The aortic root is not well visualized but is probably normal size. The inferior vena cava was not well visualized Probale small percicardial effusion mainly seen besides Right lateral wall, No evidence of tamponade. Rec Chest CT scan if clically indicated. MMode/2D Measurements & Calculations RVDd: 3.8 cm LVIDd: 5.2 cm FS: 32.0 % Ao root diam: 3.0 cm IVSd: 0.95 cm LVIDs: 3.5 cm EDV(Teich): 126.7 ml Ao root area: 7.1 cm2 LVPWd: 1.2 cm ESV(Teich): 50.9 ml EF(Teich): 59.8 % Doppler Measurements & Calculations MV E max yomi: MV dec slope: Ao V2 max: LV V1 max P.5 cm/sec 556.8 cm/sec2 98.2 cm/sec 2.2 mmHg MV A max yomi: MV dec time: 0.15 sec Ao max PG: LV V1 max: 42.2 cm/sec 3.9 mmHg 74.1 cm/sec MV E/A: 2.0 PA V2 max: TR max yomi: 107.9 cm/sec 241.3 cm/sec PA max P.7 mmHg TR max P.3 mmHg Left Ventricle The left ventricle is normal in size. There is mild concentric left ventricular hypertrophy. Left ventricular systolic function is low normal. LV diastolic function could not be adequately assessed due to atrial fibrilation. Regional wall motion abnormalities cannot be excluded due to limited visualization. Right Ventricle The right ventricle is moderately dilated. The right ventricle appears to be hypertrophied. The right ventricular systolic function is mild to moderately reduced. Atria The right atrium is moderately dilated. The left atrium is severely dilated. Interarterial septum not well visualized and not well dopplered. Cannot comment on ASD/PFO presence. Mitral Valve The mitral valve leaflets are sclerotic, but show no functional abnormalities. There is no mitral valve stenosis. There is a trace amount of mitral regurgitation. Aortic Valve The aortic valve is not well visualized secondary to technical limitations. The aortic valve opens well. There is no aortic valve stenosis. No aortic regurgitation is present. Tricuspid Valve The tricuspid valve is not well visualized, but is grossly normal. There is no tricuspid stenosis. There is a trace or physiologic amount of tricuspid regurgitation. Tricuspid regurgitation jet envelope not well defined to measure RV systolic pressure accurately. Pulmonic Valve The pulmonic valve is not well visualized. Great Vessels The aortic root is not well visualized but is probably normal size. The inferior vena cava was not well visualized. Effusions Probale small percicardial effusion mainly seen besides Right lateral wall, No evidence of tamponade. Rec Chest CT scan if clically indicated. : BEVERLY JENSEN > Duglas Rincon
[2018-12-13] MEDS: GABAPENTIN 300 MG CAPSULE PO SCH (21:44)
[2018-12-13] MEDS ORDERED: VANCOMYCIN HCL 1,250 MG in DEXTROSE 5%-WATER 250 ML IV SCH (22:00)
[2018-12-14] MEDS: DEXTROSE 5%-WATER 250 ML with NOREPINEPHRINE BITARTRATE 4 MG IV PRN ×2 (02:02)
[2018-12-14] MEDS: PIPERACILLIN SODIUM/TAZOBACTAM 3.375 GM in NORMAL SALINE 100 ML IV SCH (04:37)
[2018-12-14] MEDS: ACETAMINOPHEN 325 MG TABLET PO PRN (04:39)
[2018-12-14 04:52] LABS: ABSOLUTE EOSINOPHILS # (AUTO) 0.1 10^3/uL (0.0-0.6); ABSOLUTE LYMPHOCYTES (AUTO) 1.7 10^3/uL (0.5-4.7); ABSOLUTE MONOCYTES (AUTO) 0.4 10^3/uL (0.1-1.4); BASOPHILS % (AUTO) 0.4 % (0-2); EOSINOPHILS % (AUTO) 1.2 % (0-6); HEMATOCRIT 36.7 % (37.9-51.0); HEMOGLOBIN 12.2 g/dL (13.5-17.0); MEAN CORPUSCULAR HEMOGLOBIN 31.5 pg (27.0-33.4); MEAN CORPUSCULAR HGB CONC 33.3 g/dL (32.0-36.0); MEAN CORPUSCULAR VOLUME 94 fl (80-97); MONOCYTES % (AUTO) 7.3 % (3-13); PLATELET COUNT 110 10^3/uL (150-450); RED BLOOD COUNT 3.88 10^6/uL (4.35-5.55); RED CELL DISTRIBUTION WIDTH 14.1 % (11.5-14.0); SEGMENTED NEUTROPHILS % (AUTO) 58.1 % (42-78); TOTAL CELLS COUNTED % (AUTO) 100 %; WHITE BLOOD COUNT 5.1 10^3/uL (4.0-10.5)
[2018-12-14 05:27] LABS: ANION GAP 5 (5-19); BLOOD UREA NITROGEN 14 mg/dL (7-20); CALCIUM 7.4 mg/dL (8.4-10.2); CARBON DIOXIDE 25 mmol/L (22-30); CHLORIDE 106 mmol/L (98-107); DIGOXIN 1.64 ng/mL (0.8-2.0); GLUCOSE 81 mg/dL (75-110); POTASSIUM 3.8 mmol/L (3.6-5.0); SODIUM 135.9 mmol/L (137-145)
[2018-12-14] MEDS: NORMAL SALINE 1000 ML 1,000 ML IV PRN ×2 (08:53→21:39)
[2018-12-14] MEDS: PANTOPRAZOLE SODIUM 40 MG TABLET.DR PO SCH (08:53)
[2018-12-14] MEDS: DIGOXIN 0.125 MG TABLET PO SCH (10:44)
[2018-12-14] MEDS: CEFTRIAXONE 2 GM/D5W RTU 2 GM/50 ML RTUPB IV SCH (10:44)
[2018-12-14] MEDS: APIXABAN 5 MG TABLET PO SCH ×2 (10:44→18:32)
[2018-12-14] MEDS: CALCIUM CARBONATE 250 MG/VITAMIN D3 125 UNIT TABLET PO SCH ×2 (10:45→18:32)
[2018-12-14] MEDS: METOPROLOL SUCCINATE 50 MG TAB.SR.24H PO SCH (10:45)
[2018-12-14] MEDS: MIDODRINE HCL 5 MG TABLET PO SCH ×2 (10:45→18:32)
--- NOTE | 2018-12-14 16:24 | PDOC PROGRESS REPORT ---
Subjective Progress Note for:: 12/14/18 Subjective:: No new complaints. His blood pressure is improving his latest blood pressure is 114/70. Reason For Visit: SEPSIS,AUSTIN,LLL PNA Physical Exam Vital Signs: Temp Pulse Resp BP Pulse Ox 97.5 F 63 16 114/71 94 12/14/18 14:00 12/14/18 14:00 12/14/18 14:00 12/14/18 14:00 12/14/18 14:00 Intake & Output 12/13/18 12/14/18 12/15/18 06:59 06:59 06:59 Intake Total 4670 4164 1242 Output Total 1725 1960 195 Balance 2945 2204 1047 Weight 128.4 kg 133.6 kg General appearance: PRESENT: no acute distress Head exam: PRESENT: atraumatic Respiratory exam: PRESENT: crackles, decreased breath sounds Cardiovascular exam: PRESENT: irregular rhythm GI/Abdominal exam: PRESENT: other - Morbidly obese abdomen Neurological exam: PRESENT: alert, awake Results Laboratory Results: 12/14/18 04:25 12/14/18 04:25 12/14/18 12/14/18 04:25 04:25 WBC 5.1 RBC 3.88 L Hgb 12.2 L Hct 36.7 L MCV 94 MCH 31.5 MCHC 33.3 RDW 14.1 H Plt Count 110 L Seg Neutrophils % 58.1 Lymphocytes % 33.0 Monocytes % 7.3 Eosinophils % 1.2 Basophils % 0.4 Absolute Neutrophils 3.0 Absolute Lymphocytes 1.7 Absolute Monocytes 0.4 Absolute Eosinophils 0.1 Absolute Basophils 0.0 Sodium 135.9 L Potassium 3.8 Chloride 106 Carbon Dioxide 25 Anion Gap 5 BUN 14 Creatinine 0.87 Est GFR ( Amer) > 60 Est GFR (Non-Af Amer) > 60 Glucose 81 Calcium 7.4 L 12/10/18 14:30 Blood Blood Culture - Final Staphylococcus Auricularis 12/10/18 12/11/18 12/12/18 14:30 04:48 04:08 Troponin I 0.038 NT-Pro-B Natriuret Pep 8520 H 7630 H 8760 H 12/13/18 04:35 Troponin I NT-Pro-B Natriuret Pep 14164 H Impressions: Chest X-Ray 12/12/18 11:29 IMPRESSION: Persistent small left effusion and left basilar airspace disease. Overall improved from prior study. Chest CT 12/13/18 00:00 IMPRESSION: 1. Small, left greater than right bilateral pleural effusions with associated atelectasis or consolidation. There are scattered bilateral ground- glass opacities, the largest and most conspicuous in the anterior left upper lobe measuring 3.6 x 3.7 cm. These are likely infectious in nature. Recommend follow-up CT in 3 months to ensure resolution. 2. Coronary artery disease. 3. Hepatic steatosis. Assessment and Plan - Diagnosis (1) Persistent hypotension Is this a current diagnosis for this admission?: Yes Plan: His blood pressure is trending up. (2) Sepsis Qualifiers: Sepsis type: sepsis due to unspecified organism Qualified Code(s): A41.9 - Sepsis, unspecified organism Is this a current diagnosis for this admission?: Yes Plan: Possibly urinary tract or pulmonary origin origin. His urine culture is positive for E. coli. (3) Healthcare-associated pneumonia Is this a current diagnosis for this admission?: Yes Plan: This patient has history of hospitalization within the last 3 months this is a possibility of healthcare associated pneumonia entertained. Initially patient was on Zosyn and vancomycin. Currently he is getting ceftriaxone alone since his blood culture positive for Staphylococcus auricularis which is sensitive to multiple antibiotics except for erythromycin. At this point we do not know whether it is a contaminant or a true pathogen. (4) Acute kidney injury Is this a current diagnosis for this admission?: Yes Plan: Has resolved (5) Hypocalcemia Is this a current diagnosis for this admission?: Yes Plan: Probably associated with his hypoalbuminemia. I requested ionized fraction of calcium. Patient started on calcium carbonate with vitamin D. (6) Chronic a-fib Is this a current diagnosis for this admission?: Yes Plan: Rate controlled. (7) Pleural effusion Is this a current diagnosis for this admission?: Yes Plan: Possibly parapneumonic effusion (8) Opiate dependence due to chronic pain Is this a current diagnosis for this admission?: Yes Plan: Management per his primary care physician. (9) Morbid obesity with BMI of 40.0-44.9, adult Is this a current diagnosis for this admission?: Yes Plan: We will advised lifestyle modification.
[2018-12-14] MEDS: OXYCODONE HCL IR 5 MG TABLET PO PRN (21:39)
[2018-12-14] MEDS: GABAPENTIN 300 MG CAPSULE PO SCH (21:39)
[2018-12-15 05:32] LABS: ARTERIAL BLOOD BASE EXCESS 0.2 mmol/L; ARTERIAL BLOOD HCO3 24.8 mmol/L (20-24); ARTERIAL BLOOD PCO2 39.9 mmHg (35-45); ARTERIAL BLOOD PH 7.41 (7.35-7.45); ARTERIAL BLOOD PO2 73.5 mmHg (80-100)
[2018-12-15 05:35] LABS: ARTERIAL BLOOD FIO2 2L
[2018-12-15 05:41] LABS: ABSOLUTE EOSINOPHILS # (AUTO) 0.1 10^3/uL (0.0-0.6); ABSOLUTE LYMPHOCYTES (AUTO) 1.2 10^3/uL (0.5-4.7); ABSOLUTE MONOCYTES (AUTO) 0.3 10^3/uL (0.1-1.4); ABSOLUTE NEUT (AUTO) 2.7 10^3/uL (1.7-8.2); BASOPHILS % (AUTO) 0.2 % (0-2); EOSINOPHILS % (AUTO) 1.6 % (0-6); HEMOGLOBIN 10.9 g/dL (13.5-17.0); LYMPHOCYTES % (AUTO) 27.3 % (13-45); MEAN CORPUSCULAR HEMOGLOBIN 31.9 pg (27.0-33.4); MEAN CORPUSCULAR HGB CONC 33.9 g/dL (32.0-36.0); MEAN CORPUSCULAR VOLUME 94 fl (80-97); MONOCYTES % (AUTO) 7.4 % (3-13); RED CELL DISTRIBUTION WIDTH 14.2 % (11.5-14.0); SEGMENTED NEUTROPHILS % (AUTO) 63.5 % (42-78); TOTAL CELLS COUNTED % (AUTO) 100 %; WHITE BLOOD COUNT 4.2 10^3/uL (4.0-10.5)
[2018-12-15 05:55] LABS: BLOOD UREA NITROGEN 11 mg/dL (7-20); CALCIUM 7.2 mg/dL (8.4-10.2); CARBON DIOXIDE 26 mmol/L (22-30); CHLORIDE 109 mmol/L (98-107); PHOSPHORUS 2.1 mg/dL (2.5-4.5); POTASSIUM 3.4 mmol/L (3.6-5.0); SODIUM 137.4 mmol/L (137-145)
[2018-12-15 05:59] LABS: GLUCOSE 60 mg/dL (75-110)
[2018-12-15 06:12] LABS: ANION GAP 2 (5-19)
[2018-12-15 06:13] LABS: PLATELET COUNT 96 10^3/uL (150-450)
--- NOTE | 2018-12-15 06:35 | RADIOLOGY REPORT (SQ) ---
EXAM DESCRIPTION: XR CHEST 1 VIEW COMPLETED DATE/TME: 12/15/2018 06:00 CLINICAL HISTORY: 68 years Male, pna COMPARISON: 2 days prior. NUMBER OF VIEWS/TECHNIQUE: 1/AP FINDINGS: Moderate opacity-effusion of the left lower hemithorax. Moderate central edema pattern. Mild hazy opacity-effusion of the right lower hemithorax. Lower cervical spinal hardware.Mildly enlarged cardiac silhouette. Right PICC appears adequate. No pneumothorax. Stable bony thorax. IMPRESSION: No significant change.
[2018-12-15] MEDS: NORMAL SALINE 1000 ML 1,000 ML IV PRN ×2 (08:00→17:33)
[2018-12-15] MEDS ORDERED: POTASSIUM CHLORIDE 10 MEQ CAPSULE.ER PO ONE ×2 (08:37→12:00)
--- NOTE | 2018-12-15 11:01 | PDOC PROGRESS REPORT ---
Subjective Progress Note for:: 12/15/18 Subjective:: I seen patient resting in bed comfortably. Patient reports that he had a restful night. His blood pressure remained stable. Currently patient is off Levophed. Patient is downgraded to IMCU. Reason For Visit: SEPSIS,AUSTIN,LLL PNA Physical Exam Vital Signs: Temp Pulse Resp BP Pulse Ox 98.1 F 77 17 114/76 95 12/15/18 08:00 12/15/18 10:00 12/15/18 08:00 12/15/18 10:00 12/15/18 10:00 Intake & Output 12/14/18 12/15/18 12/16/18 06:59 06:59 06:59 Intake Total 4164 2242 Output Total 1960 1115 30 Balance 2204 1127 -30 Weight 133.6 kg 135.2 kg General appearance: PRESENT: no acute distress Head exam: PRESENT: atraumatic Eye exam: PRESENT: conjunctiva pink Mouth exam: PRESENT: moist Neck exam: ABSENT: carotid bruit, JVD, lymphadenopathy, thyromegaly Respiratory exam: PRESENT: decreased breath sounds Cardiovascular exam: PRESENT: RRR. ABSENT: diastolic murmur, rubs, systolic murmur GI/Abdominal exam: PRESENT: normal bowel sounds, soft. ABSENT: distended, guarding, mass, organolmegaly, rebound, tenderness Neurological exam: PRESENT: alert, awake, oriented to time, oriented to situation Results Laboratory Results: 12/15/18 05:15 12/15/18 05:15 12/15/18 12/15/18 12/15/18 05:15 05:15 05:15 WBC 4.2 RBC 3.40 L Hgb 10.9 L Hct 32.0 L MCV 94 MCH 31.9 MCHC 33.9 RDW 14.2 H Plt Count 96 L Seg Neutrophils % 63.5 Lymphocytes % 27.3 Monocytes % 7.4 Eosinophils % 1.6 Basophils % 0.2 Absolute Neutrophils 2.7 Absolute Lymphocytes 1.2 Absolute Monocytes 0.3 Absolute Eosinophils 0.1 Absolute Basophils 0.0 Carbonic Acid 1.20 HCO3/H2CO3 Ratio 20:1 ABG pH 7.41 ABG pCO2 39.9 ABG pO2 73.5 L ABG HCO3 24.8 H ABG O2 Saturation 95.0 ABG Base Excess 0.2 FiO2 2L Sodium 137.4 Potassium 3.4 L Chloride 109 H Carbon Dioxide 26 Anion Gap 2 L BUN 11 Creatinine 0.67 Est GFR ( Amer) > 60 Est GFR (Non-Af Amer) > 60 Glucose 60 L Calcium 7.2 L Phosphorus 2.1 L Magnesium 1.7 12/10/18 14:30 Blood Blood Culture - Final Staphylococcus Auricularis 12/10/18 12/11/18 12/12/18 14:30 04:48 04:08 Troponin I 0.038 NT-Pro-B Natriuret Pep 8520 H 7630 H 8760 H 12/13/18 12/15/18 04:35 05:15 Troponin I NT-Pro-B Natriuret Pep 25739 H 6410 H Impressions: Chest CT 12/13/18 00:00 IMPRESSION: 1. Small, left greater than right bilateral pleural effusions with associated atelectasis or consolidation. There are scattered bilateral ground- glass opacities, the largest and most conspicuous in the anterior left upper lobe measuring 3.6 x 3.7 cm. These are likely infectious in nature. Recommend follow-up CT in 3 months to ensure resolution. 2. Coronary artery disease. 3. Hepatic steatosis. Chest X-Ray 12/15/18 06:00 IMPRESSION: No significant change. Assessment and Plan - Diagnosis (1) Persistent hypotension Is this a current diagnosis for this admission?: Yes Plan: Has resolved (2) Sepsis Qualifiers: Sepsis type: sepsis due to unspecified organism Qualified Code(s): A41.9 - Sepsis, unspecified organism Is this a current diagnosis for this admission?: Yes Plan: Is being treated. (3) Healthcare-associated pneumonia Is this a current diagnosis for this admission?: Yes Plan: Is being treated (4) Acute kidney injury Is this a current diagnosis for this admission?: Yes Plan: Has resolved (5) Hypocalcemia Is this a current diagnosis for this admission?: Yes Plan: Probably associated with his hypoalbuminemia. I requested ionized fraction of calcium. Patient started on calcium carbonate with vitamin D. (6) Chronic a-fib Is this a current diagnosis for this admission?: Yes Plan: Rate controlled. (7) Pleural effusion Is this a current diagnosis for this admission?: Yes Plan: Possibly parapneumonic effusion (8) Opiate dependence due to chronic pain Is this a current diagnosis for this admission?: Yes Plan: Management per his primary care physician. (9) Morbid obesity with BMI of 40.0-44.9, adult Is this a current diagnosis for this admission?: Yes Plan: We will advised lifestyle modification.
[2018-12-15] MEDS: CEFTRIAXONE 2 GM/D5W RTU 2 GM/50 ML RTUPB IV SCH (11:21)
[2018-12-15] MEDS: MIDODRINE HCL 5 MG TABLET PO SCH ×2 (11:22→17:26)
[2018-12-15] MEDS: CALCIUM CARBONATE 250 MG/VITAMIN D3 125 UNIT TABLET PO SCH ×2 (11:22→17:26)
[2018-12-15] MEDS: METOPROLOL SUCCINATE 50 MG TAB.SR.24H PO SCH (11:23)
[2018-12-15] MEDS: APIXABAN 5 MG TABLET PO SCH ×2 (11:23→17:26)
[2018-12-15] MEDS: OXYCODONE HCL IR 5 MG TABLET PO PRN ×2 (11:24→21:28)
[2018-12-15] MEDS: PANTOPRAZOLE SODIUM 40 MG TABLET.DR PO SCH (11:24)
[2018-12-15] MEDS: DIGOXIN 0.125 MG TABLET PO SCH (11:24)
[2018-12-15] MEDS: GABAPENTIN 300 MG CAPSULE PO SCH (21:28)
[2018-12-16] MEDS: ACETAMINOPHEN 325 MG TABLET PO PRN (02:19)
[2018-12-16] MEDS: NORMAL SALINE 1000 ML 1,000 ML IV PRN ×2 (03:40→15:13)
[2018-12-16] MEDS: OXYCODONE HCL IR 5 MG TABLET PO PRN ×2 (06:02→22:14)
[2018-12-16] MEDS: METOPROLOL SUCCINATE 50 MG TAB.SR.24H PO SCH (09:19)
[2018-12-16] MEDS: MIDODRINE HCL 5 MG TABLET PO SCH ×2 (09:20→18:11)
[2018-12-16] MEDS: PANTOPRAZOLE SODIUM 40 MG TABLET.DR PO SCH (09:20)
[2018-12-16] MEDS: DIGOXIN 0.125 MG TABLET PO SCH (09:20)
[2018-12-16] MEDS: CALCIUM CARBONATE 250 MG/VITAMIN D3 125 UNIT TABLET PO SCH ×2 (09:20→18:11)
[2018-12-16] MEDS: APIXABAN 5 MG TABLET PO SCH ×2 (09:20→18:11)
[2018-12-16] MEDS: CEFTRIAXONE 2 GM/D5W RTU 2 GM/50 ML RTUPB IV SCH (09:21)
--- NOTE | 2018-12-16 12:12 | PDOC PROGRESS REPORT ---
Subjective Progress Note for:: 12/16/18 Subjective:: This is 68 years old male patient with past medical history of chronic atrial fibrillation, coronary artery disease, COPD, hypertension and hypothyroidism presented with generalized weakness and diarrhea. Patient has been treated as a case of healthcare associated pneumonia with Zosyn and vancomycin. Not patient was admitted in September 2018 for hypovolemic shock. His urine culture is positive for E. coli which is pansensitive and his blood culture grew gram-positive cocci in cluster which is identified as Staphylococcus, Auricularis which is pansensitive except for erythromycin. Zosyn and vancomycin discontinued and patient switched to ceftriaxone. About 3 days ago patient was hypotensive and had been on Levophed but currently blood pressure is normalized and he is started on midodrine. He saturates at 95% on room air. Patient is a candidate for rehab placement. Reason For Visit: SEPSIS,AUSTIN,LLL PNA Physical Exam Vital Signs: Temp Pulse Resp BP Pulse Ox 97.5 F 86 16 116/70 95 12/16/18 10:00 12/16/18 10:00 12/16/18 11:00 12/16/18 09:55 12/16/18 11:00 Intake & Output 12/15/18 12/16/18 12/17/18 06:59 06:59 06:59 Intake Total 2242 3005 Output Total 1115 565 20 Balance 1127 2440 -20 Weight 135.2 kg 136.5 kg General appearance: PRESENT: no acute distress Head exam: PRESENT: atraumatic Eye exam: PRESENT: conjunctiva pink Mouth exam: PRESENT: moist Neck exam: ABSENT: carotid bruit, JVD, lymphadenopathy, thyromegaly Respiratory exam: PRESENT: decreased breath sounds Cardiovascular exam: PRESENT: irregular rhythm Neurological exam: PRESENT: alert, awake Results Laboratory Results: 12/15/18 05:15 12/15/18 05:15 12/10/18 20:59 Blood Blood Culture - Final NO GROWTH IN 5 DAYS 12/10/18 12/11/18 12/12/18 14:30 04:48 04:08 Troponin I 0.038 NT-Pro-B Natriuret Pep 8520 H 7630 H 8760 H 12/13/18 12/15/18 04:35 05:15 Troponin I NT-Pro-B Natriuret Pep 31073 H 6410 H Impressions: Chest CT 12/13/18 00:00 IMPRESSION: 1. Small, left greater than right bilateral pleural effusions with associated atelectasis or consolidation. There are scattered bilateral ground-glass opacities, the largest and most conspicuous in the anterior left upper lobe measuring 3.6 x 3.7 cm. These are likely infectious in nature. Recommend follow-up CT in 3 months to ensure resolution. 2. Coronary artery disease. 3. Hepatic steatosis. Chest X-Ray 12/15/18 06:00 IMPRESSION: No significant change. Assessment and Plan - Diagnosis (1) Persistent hypotension Is this a current diagnosis for this admission?: Yes Plan: Has resolved (2) Sepsis Qualifiers: Sepsis type: sepsis due to unspecified organism Qualified Code(s): A41.9 - Sepsis, unspecified organism Is this a current diagnosis for this admission?: Yes Plan: Is being treated. (3) Healthcare-associated pneumonia Is this a current diagnosis for this admission?: Yes Plan: Is being treated (4) Acute kidney injury Is this a current diagnosis for this admission?: Yes Plan: Has resolved (5) Hypocalcemia Is this a current diagnosis for this admission?: Yes Plan: Probably associated with his hypoalbuminemia. I requested ionized fraction of calcium. Patient started on calcium carbonate with vitamin D. (6) Chronic a-fib Is this a current diagnosis for this admission?: Yes Plan: Rate controlled. (7) Pleural effusion Is this a current diagnosis for this admission?: Yes Plan: Possibly parapneumonic effusion (8) Opiate dependence due to chronic pain Is this a current diagnosis for this admission?: Yes Plan: Management per his primary care physician. (9) Morbid obesity with BMI of 40.0-44.9, adult Is this a current diagnosis for this admission?: Yes Plan: We will advised lifestyle modification.
[2018-12-16] MEDS: GABAPENTIN 300 MG CAPSULE PO SCH (22:14)
[2018-12-17] MEDS: NORMAL SALINE 1000 ML 1,000 ML IV PRN ×3 (02:28→15:45)
[2018-12-17] MEDS: CEFTRIAXONE 2 GM/D5W RTU 2 GM/50 ML RTUPB IV SCH (09:48)
[2018-12-17] MEDS: DIGOXIN 0.125 MG TABLET PO SCH (09:50)
[2018-12-17] MEDS: CALCIUM CARBONATE 250 MG/VITAMIN D3 125 UNIT TABLET PO SCH ×2 (09:50→17:42)
[2018-12-17] MEDS: APIXABAN 5 MG TABLET PO SCH ×2 (09:51→17:42)
[2018-12-17] MEDS: PANTOPRAZOLE SODIUM 40 MG TABLET.DR PO SCH (09:51)
[2018-12-17] MEDS: OXYCODONE HCL IR 5 MG TABLET PO PRN (09:51)
[2018-12-17] MEDS: MIDODRINE HCL 5 MG TABLET PO SCH ×2 (09:51→17:42)
[2018-12-17] MEDS: METOPROLOL SUCCINATE 50 MG TAB.SR.24H PO SCH (09:53)
--- NOTE | 2018-12-17 12:50 | PDOC PROGRESS REPORT ---
Subjective Progress Note for:: 12/17/18 Subjective:: No new complaint. His blood pressure remained stable. Reason For Visit: SEPSIS,AUSTIN,LLL PNA Physical Exam Vital Signs: Temp Pulse Resp BP Pulse Ox 97.5 F 60 13 98/66 L 96 12/17/18 12:00 12/17/18 12:00 12/17/18 12:00 12/17/18 12:00 12/17/18 12:00 Intake & Output 12/16/18 12/17/18 12/18/18 06:59 06:59 06:59 Intake Total 3005 2450 1200 Output Total 565 695 0 Balance 2440 1755 1200 Weight 136.5 kg 137.5 kg General appearance: PRESENT: no acute distress Eye exam: PRESENT: conjunctiva pink Mouth exam: PRESENT: moist Neck exam: ABSENT: carotid bruit, JVD, lymphadenopathy, thyromegaly Respiratory exam: PRESENT: clear to auscultation almaz. ABSENT: rales, rhonchi, wheezes Cardiovascular exam: PRESENT: RRR. ABSENT: diastolic murmur, rubs, systolic murmur Neurological exam: PRESENT: alert, awake, oriented to time, oriented to situation Results Laboratory Results: 12/15/18 05:15 12/15/18 05:15 12/10/18 12/11/18 12/12/18 14:30 04:48 04:08 Troponin I 0.038 NT-Pro-B Natriuret Pep 8520 H 7630 H 8760 H 12/13/18 12/15/18 04:35 05:15 Troponin I NT-Pro-B Natriuret Pep 73476 H 6410 H Impressions: Chest CT 12/13/18 00:00 IMPRESSION: 1. Small, left greater than right bilateral pleural effusions with associated atelectasis or consolidation. There are scattered bilateral ground- glass opacities, the largest and most conspicuous in the anterior left upper l obe measuring 3.6 x 3.7 cm. These are likely infectious in nature. Recommend follow-up CT in 3 months to ensure resolution. 2. Coronary artery disease. 3. Hepatic steatosis. Chest X-Ray 12/15/18 06:00 IMPRESSION: No significant change. Assessment and Plan - Diagnosis (1) Persistent hypotension Is this a current diagnosis for this admission?: Yes Plan: Has resolved (2) Sepsis Qualifiers: Sepsis type: sepsis due to unspecified organism Qualified Code(s): A41.9 - Sepsis, unspecified organism Is this a current diagnosis for this admission?: Yes Plan: Is being treated. (3) Healthcare-associated pneumonia Is this a current diagnosis for this admission?: Yes Plan: Is being treated (4) Acute kidney injury Is this a current diagnosis for this admission?: Yes Plan: Has resolved (5) Hypocalcemia Is this a current diagnosis for this admission?: Yes Plan: Probably associated with his hypoalbuminemia. I requested ionized fraction of calcium. Patient started on calcium carbonate with vitamin D. (6) Chronic a-fib Is this a current diagnosis for this admission?: Yes Plan: Rate controlled. (7) Pleural effusion Is this a current diagnosis for this admission?: Yes Plan: Possibly parapneumonic effusion (8) Opiate dependence due to chronic pain Is this a current diagnosis for this admission?: Yes Plan: Management per his primary care physician. (9) Morbid obesity with BMI of 40.0-44.9, adult Is this a current diagnosis for this admission?: Yes Plan: We will advised lifestyle modification.
[2018-12-17] MEDS ORDERED: NORMAL SALINE 500 ML IV ONE (13:30)
[2018-12-17] MEDS ORDERED: NORMAL SALINE 1000 ML 1,000 ML IV ONE (18:15)
[2018-12-17] MEDS: GABAPENTIN 300 MG CAPSULE PO SCH (21:04)
[2018-12-18] MEDS: OXYCODONE HCL IR 5 MG TABLET PO PRN (00:41)
[2018-12-18] MEDS: NORMAL SALINE 1000 ML 1,000 ML IV PRN ×2 (01:50→20:52)
[2018-12-18] MEDS ORDERED: NORMAL SALINE 1000 ML 1,000 ML IV PRN ×2 (07:48→16:57)
[2018-12-18] MEDS: PANTOPRAZOLE SODIUM 40 MG TABLET.DR PO SCH (08:44)
[2018-12-18] MEDS: CEFTRIAXONE 2 GM/D5W RTU 2 GM/50 ML RTUPB IV SCH (10:34)
[2018-12-18] MEDS: CALCIUM CARBONATE 250 MG/VITAMIN D3 125 UNIT TABLET PO SCH ×2 (10:35→18:24)
[2018-12-18] MEDS: APIXABAN 5 MG TABLET PO SCH ×2 (10:35→18:24)
[2018-12-18] MEDS: DIGOXIN 0.125 MG TABLET PO SCH (10:36)
[2018-12-18] MEDS: MIDODRINE HCL 5 MG TABLET PO SCH ×2 (10:38→18:25)
--- NOTE | 2018-12-18 14:08 | PDOC PROGRESS REPORT ---
Subjective Subjective:: This is 68 years old male patient with past medical history of chronic atrial fibrillation, coronary artery disease, COPD, hypertension and hypothyroidism presented with generalized weakness and diarrhea. Patient has been treated as a case of healthcare associated pneumonia with Zosyn and vancomycin. Not patient was admitted in September 2018 for hypovolemic shock. His urine culture is positive for E. coli which is pansensitive and his blood culture grew gram-positive cocci in cluster which is identified as Staphylococcus, Auricularis which is pansensitive except for erythromycin. Zosyn and vancomycin discontinued and patient switched to ceftriaxone. About 3 days ago patient was hypotensive and had been on Levophed which is discontinued now. About 2 days ago patient was scheduled to transfer to [facility] but the transfer on hold since his blood pressure started to drop again. He is bolused with thousand mL of normal saline and maintained at 125 mL/h. He saturates at 95% on room air. Patient is a candidate for rehab placement. Reason For Visit: SEPSIS,AUSTIN,LLL PNA Physical Exam Vital Signs: Temp Pulse Resp BP Pulse Ox 97.6 F 89 15 101/81 94 12/18/18 12:00 12/18/18 12:00 12/18/18 12:00 12/18/18 12:00 12/18/18 12:00 Intake & Output 12/17/18 12/18/18 12/19/18 06:59 06:59 06:59 Intake Total 2450 4058 50 Output Total 695 455 50 Balance 1755 3603 0 Weight 137.5 kg 141.3 kg General appearance: PRESENT: no acute distress Head exam: PRESENT: atraumatic Eye exam: PRESENT: conjunctiva pink Mouth exam: PRESENT: moist Respiratory exam: PRESENT: clear to auscultation almaz. ABSENT: rales, rhonchi, wheezes Cardiovascular exam: PRESENT: irregular rhythm Neurological exam: PRESENT: alert, awake, oriented to time, oriented to situation Results Laboratory Results: 12/15/18 05:15 12/15/18 05:15 12/10/18 12/11/18 12/12/18 14:30 04:48 04:08 Troponin I 0.038 NT-Pro-B Natriuret Pep 8520 H 7630 H 8760 H 12/13/18 12/15/18 04:35 05:15 Troponin I NT-Pro-B Natriuret Pep 99049 H 6410 H Impressions: Chest CT 12/13/18 00:00 IMPRESSION: 1. Small, left greater than right bilateral pleural effusions with associated atelectasis or consolidation. There are scattered bilateral ground- glass opacities, the largest and most conspicuous in the anterior left upper lobe measuring 3.6 x 3.7 cm. These are likely infectious in nature. Recommend follow-up CT in 3 months to ensure resolution. 2. Coronary artery disease. 3. Hepatic steatosis. Chest X-Ray 12/15/18 06:00 IMPRESSION: No significant change. Assessment and Plan - Diagnosis (1) Persistent hypotension Is this a current diagnosis for this admission?: Yes Plan: Patient's blood pressure started to drop again. There is no identifiable cause. He is on midodrine 10 mg twice daily and normal saline at rate of 125 mm/h. (2) Sepsis Qualifiers: Sepsis type: sepsis due to unspecified organism Qualified Code(s): A41.9 - Sepsis, unspecified organism Is this a current diagnosis for this admission?: Yes Plan: Is being treated. (3) Healthcare-associated pneumonia Is this a current diagnosis for this admission?: Yes Plan: Is being treated (4) Acute kidney injury Is this a current diagnosis for this admission?: Yes Plan: Has resolved (5) Hypocalcemia Is this a current diagnosis for this admission?: Yes Plan: Probably associated with his hypoalbuminemia. I requested ionized fraction of calcium. Patient started on calcium carbonate with vitamin D. (6) Chronic a-fib Is this a current diagnosis for this admission?: Yes Plan: Rate controlled. (7) Pleural effusion Is this a current diagnosis for this admission?: Yes Plan: Possibly parapneumonic effusion (8) Opiate dependence due to chronic pain Is this a current diagnosis for this admission?: Yes Plan: Management per his primary care physician. (9) Morbid obesity with BMI of 40.0-44.9, adult Is this a current diagnosis for this admission?: Yes Plan: We will advised lifestyle modification.
[2018-12-18] MEDS: ALBUMIN HUMAN 12.5 GM/50 ML RTUINJ IV SCH ×4 (20:23→23:05)
[2018-12-18 20:27] LABS: ABSOLUTE EOSINOPHILS # (AUTO) 0.1 10^3/uL (0.0-0.6); ABSOLUTE LYMPHOCYTES (AUTO) 2.3 10^3/uL (0.5-4.7); ABSOLUTE MONOCYTES (AUTO) 0.5 10^3/uL (0.1-1.4); ABSOLUTE NEUT (AUTO) 2.8 10^3/uL (1.7-8.2); BASOPHILS % (AUTO) 0.8 % (0-2); HEMATOCRIT 31.3 % (37.9-51.0); HEMOGLOBIN 10.2 g/dL (13.5-17.0); LYMPHOCYTES % (AUTO) 39.7 % (13-45); MEAN CORPUSCULAR HEMOGLOBIN 31.1 pg (27.0-33.4); MEAN CORPUSCULAR HGB CONC 32.8 g/dL (32.0-36.0); MEAN CORPUSCULAR VOLUME 95 fl (80-97); MONOCYTES % (AUTO) 8.8 % (3-13); PLATELET COUNT 238 10^3/uL (150-450); RED BLOOD COUNT 3.29 10^6/uL (4.35-5.55); RED CELL DISTRIBUTION WIDTH 14.4 % (11.5-14.0); SEGMENTED NEUTROPHILS % (AUTO) 48.7 % (42-78); TOTAL CELLS COUNTED % (AUTO) 100 %; WHITE BLOOD COUNT 5.8 10^3/uL (4.0-10.5)
[2018-12-18 20:57] LABS: ALANINE AMINOTRANSFERASE 66 U/L (21-72); ALBUMIN 1.6 g/dL (3.5-5.0); ALKALINE PHOSPHATASE 152 U/L (38-126); ASPARTATE AMINO TRANSFERASE 57 U/L (17-59); BILIRUBIN,DIRECT 0.4 mg/dL (0.0-0.4); BILIRUBIN,TOTAL 0.5 mg/dL (0.2-1.3); BLOOD UREA NITROGEN 7 mg/dL (7-20); CALCIUM 7.7 mg/dL (8.4-10.2); GLUCOSE 97 mg/dL (75-110); POTASSIUM 3.8 mmol/L (3.6-5.0); TOTAL PROTEIN 3.6 g/dL (6.3-8.2)
[2018-12-18] MEDS: GABAPENTIN 300 MG CAPSULE PO SCH (21:26)
[2018-12-18 21:30] LABS: CHLORIDE 111 mmol/L (98-107)
[2018-12-18 21:31] LABS: ANION GAP 1 (5-19); CARBON DIOXIDE 24 mmol/L (22-30); SODIUM 135.9 mmol/L (137-145)
[2018-12-18 21:42] LABS: APPEARANCE,URINE CLEAR; BILIRUBIN,URINE NEGATIVE (NEGATIVE); COLOR,URINE YELLOW; GLUCOSE, URINE NEGATIVE (NEGATIVE); KETONES,URINE NEGATIVE (NEGATIVE); LEUKOCYTE ESTERASE,URINE TRACE (NEGATIVE); NITRITE,URINE NEGATIVE (NEGATIVE); PROTEIN,URINE NEGATIVE (NEGATIVE); URINE SPECIFIC GRAVITY 1.013; UROBILINOGEN,URINE NEGATIVE mg/dL (<2.0)
[2018-12-19] MEDS: NORMAL SALINE 1000 ML 1,000 ML IV PRN (00:33)
[2018-12-19] MEDS ORDERED: NOREPINEPHRINE BITARTRATE INJ/PF 4 MG/4 ML SDV IV ONE (02:16)
[2018-12-19] MEDS ORDERED: DEXTROSE 5%-WATER 250 ML with NOREPINEPHRINE BITARTRATE 4 MG IV PRN ×2 (02:17)
[2018-12-19] MEDS ORDERED: NORMAL SALINE 1000 ML 1,000 ML IV ONE (02:30)
[2018-12-19] MEDS ORDERED: NORMAL SALINE 1000 ML 1,000 ML IV PRN (04:00)
[2018-12-19] MEDS: OXYCODONE HCL IR 5 MG TABLET PO PRN (04:07)
[2018-12-19] MEDS: PANTOPRAZOLE SODIUM 40 MG TABLET.DR PO SCH (08:39)
[2018-12-19] MEDS ORDERED: DIPHENOXYLATE HCL/ATROP SULF 2.5-0.025 MG TABLET PO PRN (09:08)
[2018-12-19] MEDS: DIGOXIN 0.125 MG TABLET PO SCH (09:10)
[2018-12-19] MEDS: CALCIUM CARBONATE 250 MG/VITAMIN D3 125 UNIT TABLET PO SCH ×2 (09:10→17:15)
[2018-12-19] MEDS: APIXABAN 5 MG TABLET PO SCH ×2 (09:11→17:15)
[2018-12-19] MEDS: CEFTRIAXONE 2 GM/D5W RTU 2 GM/50 ML RTUPB IV SCH (09:12)
--- NOTE | 2018-12-19 09:33 | PDOC PROGRESS REPORT ---
Subjective Progress Note for:: 12/19/18 Subjective:: 68 years old male patient with past medical history of chronic atrial fibrillation, coronary artery disease, COPD, hypertension and hypothyroidism presented with generalized weakness and diarrhea. Patient has been treated as a case of healthcare associated pneumonia with Zosyn and vancomycin. Not patient was admitted in September 2018 for hypovolemic shock. His urine culture is positive for E. coli which is pansensitive and his blood culture grew gram- positive cocci in cluster which is identified as Staphylococcus, Auricularis which is pansensitive except for erythromycin. Zosyn and vancomycin discontinued and patient switched to ceftriaxone. About 3 days ago patient was hypotensive and had been on Levophed which is discontinued now. About 2 days ago patient was scheduled to transfer to [facility] but the transfer on hold since his blood pressure started to drop again. He is bolused with thousand mL of normal saline and maintained at 125 mL/h. He saturates at 95% on room air. Patient is a candidate for rehab placement. 12/19/[id number]-trzk-old male with multiple medical problems in the ICU for hypotension. He has pneumonia getting antibiotic therapy. Latest blood cultures are negative. Patient is hypotensive last night he received 3 L of IV fluids and 50% of albumin. He is also on Levophed for a short while blood pressure is improved to 120/73 today. On examination patient have crackles in the chest and bilateral 2+ pedal edema present. To stop Levophed stop IV fluids for now and to reevaluate her blood pressures q. one hour. Necessary will put him back on pressors. It is afebrile T-max is 97.6. Comfortably in the bed pu lse ox is 98% 3 L complaining of tremors wants something for it other than that no complaints. Reason For Visit: SEPSIS,AUSTIN,LLL PNA Physical Exam Vital Signs: Temp Pulse Resp BP Pulse Ox 97.7 F 103 H 14 127/82 H 100 12/19/18 08:00 12/19/18 08:00 12/19/18 08:00 12/19/18 08:00 12/19/18 08:00 Intake & Output 12/18/18 12/19/18 12/20/18 06:59 06:59 06:59 Intake Total 4058 4688 1529 Output Total 455 1170 140 Balance 3603 3518 1389 Weight 141.3 kg 143.9 kg General appearance: PRESENT: no acute distress, obese Head exam: PRESENT: atraumatic Eye exam: PRESENT: PERRLA Mouth exam: PRESENT: moist, tongue midline Teeth exam: PRESENT: poor dentation Neck exam: PRESENT: JVD Respiratory exam: PRESENT: crackles, decreased breath sounds Cardiovascular exam: PRESENT: irregular rhythm Pulses: PRESENT: normal dorsalis pedis pul GI/Abdominal exam: PRESENT: normal bowel sounds, soft. ABSENT: distended, guarding, mass, organolmegaly, rebound, tenderness Extremities exam: PRESENT: +2 edema Neurological exam: PRESENT: alert, awake, oriented to person, oriented to place, oriented to time, oriented to situation, CN II-XII grossly intact. ABSENT: motor sensory deficit Psychiatric exam: PRESENT: appropriate affect, normal mood. ABSENT: homicidal ideation, suicidal ideation Results Laboratory Results: 12/18/18 20:10 12/18/18 20:10 12/18/18 12/18/18 12/18/18 20:10 20:10 20:10 WBC 5.8 RBC 3.29 L Hgb 10.2 L Hct 31.3 L MCV 95 MCH 31.1 MCHC 32.8 RDW 14.4 H Plt Count 238 Seg Neutrophils % 48.7 Lymphocytes % 39.7 Monocytes % 8.8 Eosinophils % 2.0 Basophils % 0.8 Absolute Neutrophils 2.8 Absolute Lymphocytes 2.3 Absolute Monocytes 0.5 Absolute Eosinophils 0.1 Absolute Basophils 0.0 Sodium 135.9 L Potassium 3.8 Chloride 111 H Carbon Dioxide 24 Anion Gap 1 L BUN 7 Creatinine 0.63 Est GFR ( Amer) > 60 Est GFR (Non-Af Amer) > 60 Glucose 97 Calcium 7.7 L Total Bilirubin 0.5 AST 57 ALT 66 Alkaline Phosphatase 152 H Total Protein 3.6 L Albumin 1.6 L TSH 3.09 Urine Color Urine Appearance Urine pH Ur Specific [place] Urine Protein Urine Glucose (UA) Urine Ketones Urine Blood Urine Nitrite Ur Leukocyte Esterase Urine WBC (Auto) Urine RBC (Auto) 12/18/18 21:23 WBC RBC Hgb Hct MCV MCH MCHC RDW Plt Count Seg Neutrophils % Lymphocytes % Monocytes % Eosinophils % Basophils % Absolute Neutrophils Absolute Lymphocytes Absolute Monocytes Absolute Eosinophils Absolute Basophils Sodium Potassium Chloride Carbon Dioxide Anion Gap BUN Creatinine Est GFR ( Amer) Est GFR (Non-Af Amer) Glucose Calcium Total Bilirubin AST ALT Alkaline Phosphatase Total Protein Albumin TSH Urine Color YELLOW Urine Appearance CLEAR Urine pH 5.0 Ur Specific [place] 1.013 Urine Protein NEGATIVE Urine Glucose (UA) NEGATIVE Urine Ketones NEGATIVE Urine Blood SMALL H Urine Nitrite NEGATIVE Ur Leukocyte Esterase TRACE H Urine WBC (Auto) 5 Urine RBC (Auto) 5 12/10/18 12/11/18 12/12/18 14:30 04:48 04:08 Troponin I 0.038 NT-Pro-B Natriuret Pep 8520 H 7630 H 8760 H 12/13/18 12/15/18 04:35 05:15 Troponin I NT-Pro-B Natriuret Pep 44519 H 6410 H Impressions: Chest CT 12/13/18 00:00 IMPRESSION: 1. Small, left greater than right bilateral pleural effusions with associated atelectasis or consolidation. There are scattered bilateral ground- glass opacities, the largest and most conspicuous in the anterior left upper lobe measuring 3.6 x 3.7 cm. These are likely infectious in nature. Recommend follow-up CT in 3 months to ensure resolution. 2. Coronary artery disease. 3. Hepatic steatosis. Chest X-Ray 12/15/18 06:00 IMPRESSION: No significant change. Assessment and Plan - Diagnosis (1) Persistent hypotension Is this a current diagnosis for this admission?: Yes Plan: Patient's blood pressure started to drop again. There is no identifiable cause. He is on midodrine 10 mg twice daily and normal saline at rate of 125 mm/h. 12/19/2018-patient is persistently hypotensive last night is received 3 L of IV fluids and on Levophed for a short while this morning blood pressure is improved to 120/73. Patient is asymptomatic. Patient is also received 50% albumin. Plan is to discontinue IV fluids discontinue Levophed today and closely monitor his blood pressures because BNP went up to 6400 and chest examination shows bilateral crackles and crepitations. Chest x-ray was requested for today. Latest blood cultures from 12/10/2018 are negative. Patient please presently on Rocephin. Midrin dose is increased to 10 mg 3 times a day. (2) Sepsis Qualifiers: Sepsis type: sepsis due to unspecified organism Qualified Code(s): A41.9 - Sepsis, unspecified organism Is this a current diagnosis for this admission?: Yes Plan: Is being treated. 12/19/2018-patient was admitted with sepsis and hypovolemic shock. Presently on IV Rocephin. Blood cultures from 12/10/2018-. Pulse oxes 98% on 3 L. Plan is to repeat the blood cultures. Patient is still persistently hypotensive. (3) Healthcare-associated pneumonia Is this a current diagnosis for this admission?: Yes Plan: As in sepsis above 12/19/2018-patient healthcare associated pneumonia initially treated with IV Zosyn and vancomycin blood cultures from 12/10/2017-. Presently on IV ceftriaxone. Plan is to continue the present management repeat chest x-ray was requested for today. (4) Acute kidney injury Is this a current diagnosis for this admission?: Yes Plan: Due to sepsis. Given IV fluids and monitoring his urine output 12/19/2018-patient's admission creatinine on 12/10/2018 is 1.72 it is improved 2.63 today. Acute kidney injury due to ATN due to prerenal causes/sepsis resolving. (5) Atrial fibrillation Qualifiers: Atrial fibrillation type: chronic Qualified Code(s): I48.2 - Chronic atrial fibrillation Is this a current diagnosis for this admission?: No Plan: Continue anticoagulation and rate control drugs. Holding Cardizem for now due to his blood pressures, but will continue the metoprolol and digoxin 12/19/2018-patient has history of chronic atrial fibrillation on apixaban at home. Rate controlled. To restart his Cardizem and metoprolol, digoxin today. To watch for the blood pressures today. If the blood pressures dropping we may have to hold these medications. (6) Hypocalcemia Is this a current diagnosis for this admission?: Yes Plan: Probably associated with his hypoalbuminemia. I requested ionized fraction of calcium. Patient started on calcium carbonate with vitamin D. 12/19/2018-patient serum calcium is 7.7 and albumin is 1.4 corrected calcium is more than 8.5. Plan to give IV albumin today. (7) CHF (congestive heart failure) Is this a current diagnosis for this admission?: No Plan: 12/19/2018-patient has echocardiogram was done on 12/13/2017 the impression is patient has low normal left ventricular systolic function and unable to assess the diastolic function because of chronic atrial fibrillation. In my opinion patient may have a chronic bilateral heart failure. His BNP 6400 and chest x- ray shows central edema. Plan is to watch for the fluid overload. Patient received 3 L of IV fluids because of hypotension last night. - Time Time Spent with patient: 25-34 minutes Medications reviewed and adjusted accordingly: Yes Anticipated discharge: SNF
[2018-12-19] MEDS: METOPROLOL SUCCINATE 50 MG TAB.SR.24H PO SCH ×2 (09:36→21:06)
[2018-12-19] MEDS: LOSARTAN POTASSIUM 25 MG TABLET PO SCH (09:36)
[2018-12-19] MEDS ORDERED: MIDODRINE HCL 5 MG TABLET PO SCH (10:00)
[2018-12-19] MEDS ORDERED: DIGOXIN 0.125 MG TABLET PO SCH (10:00)
[2018-12-19] MEDS ORDERED: APIXABAN 5 MG TABLET PO SCH (10:00)
--- NOTE | 2018-12-19 10:26 | RADIOLOGY REPORT (SQ) ---
EXAM DESCRIPTION: CHEST SINGLE VIEW COMPLETED DATE/TIME: 12/19/2018 10:00 am REASON FOR STUDY: shortness of breath COMPARISON: None. EXAM PARAMETERS: NUMBER OF VIEWS: One view. TECHNIQUE: Single frontal radiographic view of the chest acquired. RADIATION DOSE: NA LIMITATIONS: None. FINDINGS: LUNGS AND PLEURA: As on the previous examination, focal parenchymal opacities in the left suprahilar region. Stable appearing pleuroparenchymal changes in the left lower lobe and pleural ef fusion. Question of airspace disease in the right lower lobe since the prior examination. The right costophrenic angle is not well visualized. Small right pleural effusion may be present. No evidenc e of a pneumothorax. MEDIASTINUM AND HILAR STRUCTURES: Stable appearance. HEART AND VASCULAR STRUCTURES: Stable appearance. BONES: No acute findings. HARDWARE: Right PICC line, unchanged finding. Hardware visualized mid lower anterior cervical spine . OTHER: No other significant finding. IMPRESSION: 1. Stable appearance to the left suprahilar parenchymal opacities and the pleuroparench ymal changes in the left lower lung. Stable left pleural effusion. 2. Question of increasing airspace disease in the right lower lung. Right pleural effusion may be p resent. TECHNICAL DOCUMENTATION: JOB ID: [id number] [employer]- All Rights Reserved Reading location - IP/workstation name: [email or web address]
[2018-12-19] MEDS: DILTIAZEM HCL 120 MG CAP.SR.24H PO SCH (10:34)
[2018-12-19] MEDS: OXYCODONE HCL IR 5 MG TABLET PO SCH ×3 (10:37→21:02)
[2018-12-19] MEDS: MIDODRINE HCL 5 MG TABLET PO SCH ×2 (11:31→15:42)
[2018-12-19] MEDS: BUPROPION HCL 100 MG TABLET PO SCH ×2 (13:39→21:10)
[2018-12-19] MEDS ORDERED: NORMAL SALINE 500 ML IV ONE (18:15)
[2018-12-19] MEDS: ALBUMIN HUMAN 12.5 GM/50 ML RTUINJ IV SCH ×4 (19:39→22:46)
[2018-12-19] MEDS: GABAPENTIN 300 MG CAPSULE PO SCH (21:03)
--- NOTE | 2018-12-19 21:27 | XCELERA REPORT ---
[address] [address] Transthoracic Echocardiogram Report Name: AMELIA BOB Age: 68 yrs Gender: Male : 1950 Patient Status: Inpatient Patient Location: ICU^1^A Study Date: 12/19/2018 10:37 AM Procedure: A limited two-dimensional transthoracic echocardiogram was performed (2D). The study was technically difficult with many images being suboptimal in quality. Reason For Study: R/O pericardial effusion Ordering Physician: CHELY VELAZQUEZ Performed By: Tracy Mata Interpretation Summary There is no pericardial effusion. LVEF in limited views is normal amd greater than 60%. Effusions There is no pericardial effusion. LVEF in limited views is normal amd greater than 60%. : CHELY VELAZQUEZ > Chely Velazquez
--- NOTE | 2018-12-19 23:35 | Progress Note ---
Provider Note Provider Note: As per Dr. Farfan to the see the patient. Patient was seen on 12/19/2018. The reason for consult was persistent hypotension, and inability to wean the patient off levo fed. When I saw the patient the patient was comfortable denies any chest pain or discomfort. There was no pulsus paradoxus and blood pressure has remained above 100 and the patient is off Levophed. A limited follow-up echo which did not show any pericardial effusion. Hence at present no real indication of hypotension. Discussed with Dr. navarro consult has been canceled. Hence we will not perform a formal consult.
[2018-12-20] MEDS: BUPROPION HCL 100 MG TABLET PO SCH ×3 (05:19→21:24)
[2018-12-20] MEDS ORDERED: PANTOPRAZOLE SODIUM 40 MG TABLET.DR PO SCH (06:00)
[2018-12-20] MEDS: ALBUMIN HUMAN 12.5 GM/50 ML RTUINJ IV SCH ×4 (08:20→11:57)
[2018-12-20] MEDS: PANTOPRAZOLE SODIUM 40 MG TABLET.DR PO SCH (08:21)
[2018-12-20] MEDS: MIDODRINE HCL 5 MG TABLET PO SCH ×3 (08:21→17:02)
[2018-12-20] MEDS ORDERED: FUROSEMIDE INJ/PF 40 MG/4 ML SDV IV ONE (09:27)
[2018-12-20] MEDS: CALCIUM CARBONATE 250 MG/VITAMIN D3 125 UNIT TABLET PO SCH ×2 (09:35→17:05)
[2018-12-20] MEDS: CEFTRIAXONE 2 GM/D5W RTU 2 GM/50 ML RTUPB IV SCH (09:35)
[2018-12-20] MEDS: DIGOXIN 0.125 MG TABLET PO SCH (09:35)
[2018-12-20] MEDS: APIXABAN 5 MG TABLET PO SCH ×2 (09:35→17:05)
[2018-12-20] MEDS: LOSARTAN POTASSIUM 25 MG TABLET PO SCH (09:35)
[2018-12-20] MEDS: DILTIAZEM HCL 120 MG CAP.SR.24H PO SCH (09:35)
[2018-12-20] MEDS: METOPROLOL SUCCINATE 50 MG TAB.SR.24H PO SCH ×2 (09:35→21:26)
[2018-12-20] MEDS: OXYCODONE HCL IR 5 MG TABLET PO SCH ×2 (09:35→21:24)
[2018-12-20] MEDS ORDERED: PIPERACILLIN/TAZOBACTAM 3.375 GM VIAL IV SCH (10:00)
[2018-12-20] MEDS ORDERED: VANCOMYCIN HCL INJ 1000 MG VIAL IV SCH (10:00)
[2018-12-20 10:03] LABS: ABSOLUTE EOSINOPHILS # (AUTO) 0.1 10^3/uL (0.0-0.6); ABSOLUTE LYMPHOCYTES (AUTO) 1.6 10^3/uL (0.5-4.7); ABSOLUTE MONOCYTES (AUTO) 0.4 10^3/uL (0.1-1.4); BASOPHILS % (AUTO) 0.7 % (0-2); EOSINOPHILS % (AUTO) 1.8 % (0-6); HEMATOCRIT 28.3 % (37.9-51.0); HEMOGLOBIN 9.4 g/dL (13.5-17.0); LYMPHOCYTES % (AUTO) 31.7 % (13-45); MEAN CORPUSCULAR HEMOGLOBIN 31.7 pg (27.0-33.4); MEAN CORPUSCULAR HGB CONC 33.3 g/dL (32.0-36.0); MEAN CORPUSCULAR VOLUME 95 fl (80-97); MONOCYTES % (AUTO) 7.8 % (3-13); PLATELET COUNT 273 10^3/uL (150-450); RED BLOOD COUNT 2.97 10^6/uL (4.35-5.55); RED CELL DISTRIBUTION WIDTH 14.5 % (11.5-14.0); TOTAL CELLS COUNTED % (AUTO) 100 %; WHITE BLOOD COUNT 5.2 10^3/uL (4.0-10.5)
--- NOTE | 2018-12-20 10:07 | PDOC PROGRESS REPORT ---
Subjective Progress Note for:: 12/20/18 Subjective:: 68 years old male patient with past medical history of chronic atrial fibrillation, coronary artery disease, COPD, hypertension and hypothyroidism presented with generalized weakness and diarrhea. Patient has been treated as a case of healthcare associated pneumonia with Zosyn and vancomycin. Not patient was admitted in September 2018 for hypovolemic shock. His urine culture is positive for E. coli which is pansensitive and his blood culture grew gram- positive cocci in cluster which is identified as Staphylococcus, Auricularis which is pansensitive except for erythromycin. Zosyn and vancomycin discontinued and patient switched to ceftriaxone. About 3 days ago patient was hypotensive and had been on Levophed which is discontinued now. About 2 days ago patient was scheduled to transfer to [facility] but the transfer on hold since his blood pressure started to drop again. He is bolused with thousand mL of normal saline and maintained at 125 mL/h. He saturates at 95% on room air. Patient is a candidate for rehab placement. 12/19/[id number]-kkgz-old male with multiple medical problems in the ICU for hypotension. He has pneumonia getting antibiotic therapy. Latest blood cultures are negative. Patient is hypotensive last night he received 3 L of IV fluids and 50% of albumin. He is also on Levophed for a short while blood pressure is improved to 120/73 today. On examination patient have crackles in the chest and bilateral 2+ pedal edema present. To stop Levophed stop IV fluids for now and to reevaluate her blood pressures q. one hour. Necessary will put him back on pressors. It is afebrile T-max is 97.6. Comfortably in the bed pu lse ox is 98% 3 L complaining of tremors wants something for it other than that no complaints. 12/20/2018-no acute events in the last 24 hours. Patient blood pressure this morning 120/70. Chest x-ray done yesterday shows possible worsening of the pulmonary opacities. Patient alert and awake communicating very well. To give IV Lasix 1 dose. Pulse ox is 95% on 3 L. To stop IV Rocephin start on IV vancomycin, IV Zosyn from today. To do the CT chest without contrast today to get further information about the pneumonia. Plan is to continue his IV albumin. Reason For Visit: SEPSIS,AUSTIN,LLL PNA Physical Exam Vital Signs: Temp Pulse Resp BP Pulse Ox 97.9 F 103 H 15 95/82 L 95 12/20/18 08:00 12/20/18 08:00 12/20/18 08:00 12/20/18 08:00 12/20/18 08:00 Intake & Output 12/19/18 12/20/18 12/21/18 06:59 06:59 06:59 Intake Total 4688 2272 600 Output Total 1170 685 0 Balance 3518 1587 600 Weight 143.9 kg 149 kg General appearance: PRESENT: no acute distress, obese Head exam: PRESENT: atraumatic Eye exam: PRESENT: PERRLA Mouth exam: PRESENT: moist, tongue midline Teeth exam: PRESENT: poor dentation Neck exam: ABSENT: carotid bruit, JVD, lymphadenopathy, thyromegaly Respiratory exam: PRESENT: decreased breath sounds Cardiovascular exam: PRESENT: systolic murmur, tachycardia GI/Abdominal exam: PRESENT: normal bowel sounds, soft. ABSENT: distended, guarding, mass, organolmegaly, rebound, tenderness Extremities exam: PRESENT: +2 edema Neurological exam: PRESENT: alert, awake, oriented to person, oriented to place, oriented to time, oriented to situation, CN II-XII grossly intact. ABSENT: motor sensory deficit Psychiatric exam: PRESENT: appropriate affect, normal mood. ABSENT: homicidal ideation, suicidal ideation Results Laboratory Results: 12/18/18 20:10 12/18/18 20:10 12/10/18 12/11/18 12/12/18 14:30 04:48 04:08 Troponin I 0.038 NT-Pro-B Natriuret Pep 8520 H 7630 H 8760 H 12/13/18 12/15/18 04:35 05:15 Troponin I NT-Pro-B Natriuret Pep 13033 H 6410 H Impressions: Chest CT 12/13/18 00:00 IMPRESSION: 1. Small, left greater than right bilateral pleural effusions with associated atelectasis or consolidation. There are scattered bilateral ground- glass opacities, the largest and most conspicuous in the anterior left upper lobe measuring 3.6 x 3.7 cm. These are likely infectious in nature. Recommend follow-up CT in 3 months to ensure resolution. 2. Coronary artery disease. 3. Hepatic steatosis. Chest X-Ray 12/19/18 00:00 IMPRESSION: 1. Stable appearance to the left suprahilar parenchymal opacities and the pleuroparenchymal changes in the left lower lung. Stable left pleural effusion. 2. Question of increasing airspace disease in the right lower lung. Right pleural effusion may be present. Assessment and Plan - Diagnosis (1) Persistent hypotension Is this a current diagnosis for this admission?: Yes Plan: Patient's blood pressure started to drop again. There is no identifiable cause. He is on midodrine 10 mg twice daily and normal saline at rate of 125 mm/h. 12/19/2018-patient is persistently hypotensive last night is received 3 L of IV fluids and on Levophed for a short while this morning blood pressure is improved to 120/73. Patient is asymptomatic. Patient is also received 50% albumin. Plan is to discontinue IV fluids discontinue Levophed today and closely monitor his blood pressures because BNP went up to 6400 and chest examination shows bilateral crackles and crepitations. Chest x-ray was requested for today. Latest blood cultures from 12/10/2018 are negative. Patient please presently on Rocephin. Midrin dose is increased to 10 mg 3 times a day. 12/20/2018-blood pressure today is 120/77 today. Patient is asymptomatic. Patient is off Levophed off IV fluids and off the pressors. Albumin is 1.6 he is going to receive 50 g of IV albumin today. Patient is presently on Midodrin 10 mg p.o. 3 times daily. Chest x-ray shows worsening of the pulmonary opacities IV Rocephin is discontinued started on IV Zosyn and vancomycin today. To do the CT chest without contrast to get further information about the pneumonia. Latest blood cultures are negative. (2) Sepsis Qualifiers: Sepsis type: sepsis due to unspecified organism Qualified Code(s): A41.9 - Sepsis, unspecified organism Is this a current diagnosis for this admission?: Yes Plan: Is being treated. 12/19/2018-patient was admitted with sepsis and hypovolemic shock. Presently on IV Rocephin. Blood cultures from 12/10/2018-. Pulse oxes 98% on 3 L. Plan is to repeat the blood cultures. Patient is still persistently hypotensive. 12/20/2018-patient was treated with sepsis in association with hypovolemic shock. Latest blood cultures are negative. Blood pressure is improved today. But chest x-ray shows worsening of the pulmonary opacities. To repeat the blood cultures today. Started on IV Zosyn and IV vancomycin today. (3) Healthcare-associated pneumonia Is this a current diagnosis for this admission?: Yes Plan: As in sepsis above 12/19/2018-patient healthcare associated pneumonia initially treated with IV Zosyn and vancomycin blood cultures from 12/10/2017-. Presently on IV ceftriaxone. Plan is to continue the present management repeat chest x-ray was requested for today. 12/20/2018-patient had healthcare associated pneumonia he was treated with IV vancomycin and Zosyn initially now he is on IV ceftriaxone plan is to discontinue IV ceftriaxone and restart on IV Zosyn and vancomycin. [employer] on board. Requested for blood cultures and sputum cultures again today. Plan to do the CT chest without contrast to get further information about pneumonia. pt is afebrile. (4) Acute kidney injury Is this a current diagnosis for this admission?: Yes Plan: Due to sepsis. Given IV fluids and monitoring his urine output 12/19/2018-patient's admission creatinine on 12/10/2018 is 1.72 it is improved 0.63 today. Acute kidney injury due to ATN due to prerenal causes/sepsis resolving. 12/20/2018-patient's admission creatinine on 12/10/2018 is 1.7 and it was improved to 0.63. Acute kidney injury most likely secondary to ATN due to sepsis is resolving. (5) Atrial fibrillation Qualifiers: Atrial fibrillation type: chronic Qualified Code(s): I48.2 - Chronic atrial fibrillation Is this a current diagnosis for this admission?: No Plan: Continue anticoagulation and rate control drugs. Holding Cardizem for now due to his blood pressures, but will continue the metoprolol and digoxin 12/19/2018-patient has history of chronic atrial fibrillation on apixaban at home. Rate controlled. To restart his Cardizem and metoprolol, digoxin today. To watch for the blood pressures today. If the blood pressures dropping we may have to hold these medications. 11/2018-patient has history of chronic atrial fibrillation and Effexor been at home heart rate is well controlled. We started him back on p.o. Cardizem, metoprolol, digoxin from yesterday. Blood pressures are stable. (6) Hypocalcemia Is this a current diagnosis for this admission?: Yes Plan: Probably associated with his hypoalbuminemia. I requested ionized fraction of calcium. Patient started on calcium carbonate with vitamin D. 12/19/2018-patient serum calcium is 7.7 and albumin is 1.4 corrected calcium is more than 8.5. Plan to give IV albumin today. 12/20/2018-patient's latest serum calcium is 7.7 and albumin is 1.6 today's labs are pending corrected calcium is close to 9. Plan is to continue the present management. (7) CHF (congestive heart failure) Is this a current diagnosis for this admission?: No Plan: 12/19/2018-patient has echocardiogram was done on 12/13/2017 the impression is patient has low normal left ventricular systolic function and unable to assess the diastolic function because of chronic atrial fibrillation. In my opinion patient may have a chronic bilateral heart failure. His BNP 6400 and chest x- ray shows central edema. Plan is to watch for the fluid overload. Patient received 3 L of IV fluids because of hypotension last night. 12/20/2018-echocardiogram shows patient has low normal left ventricular systolic function and unable to assess the diastolic function because of the atrial fibrillation. 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 He still have 2+ pedal edema. BNP was 6400 yesterday. Blood pressure was improved today to 120/77 to give Lasix 40 mg IV 1 dose today. plan to repeat the labs tomorrow including BMP tomorrow. - Time Time Spent with patient: 15-24 minutes Medications reviewed and adjusted accordingly: Yes Anticipated discharge: SNF
[2018-12-20] MEDS ORDERED: VANCOMYCIN HCL 1,250 MG in DEXTROSE 5%-WATER 250 ML IV ONE (10:30)
[2018-12-20 10:31] LABS: ALANINE AMINOTRANSFERASE 67 U/L (21-72); ALBUMIN 2.2 g/dL (3.5-5.0); ALKALINE PHOSPHATASE 123 U/L (38-126); ASPARTATE AMINO TRANSFERASE 58 U/L (17-59); BILIRUBIN,DIRECT 0.4 mg/dL (0.0-0.4); BILIRUBIN,TOTAL 0.7 mg/dL (0.2-1.3); BLOOD UREA NITROGEN 5 mg/dL (7-20); CALCIUM 8.2 mg/dL (8.4-10.2); GLUCOSE 72 mg/dL (75-110); POTASSIUM 3.6 mmol/L (3.6-5.0); TOTAL PROTEIN 4.1 g/dL (6.3-8.2)
[2018-12-20 10:36] LABS: CARBON DIOXIDE 24 mmol/L (22-30); CHLORIDE 114 mmol/L (98-107); SODIUM 139.7 mmol/L (137-145)
[2018-12-20 10:37] LABS: ANION GAP 2 (5-19)
--- NOTE | 2018-12-20 10:49 | RADIOLOGY REPORT (SQ) ---
EXAM DESCRIPTION: CHEST SINGLE VIEW COMPLETED DATE/TIME: 12/20/2018 10:35 am REASON FOR STUDY: chf COMPARISON: 12/19/2018 EXAM PARAMETERS: NUMBER OF VIEWS: One view. TECHNIQUE: Single frontal radiographic view of the chest acquired. RADIATION DOSE: NA LIMITATIONS: Patient position FINDINGS: LUNGS AND PLEURA: Unchanged left suprahilar parenchymal opacity. Dense left basilar conso lidation. Small bilateral effusions, stable, left greater than right. . MEDIASTINUM AND HILAR STRUCTURES: Unchanged left suprahilar parenchymal opacity. HEART AND VASCULAR STRUCTURES: Enlarged, stable. Aortic atherosclerosis. BONES: No acute findings. Degenerative changes at the shoulders. Partially visualized cervical fusi on hardware. HARDWARE: Right approach central venous catheter tip terminates over at superior vena cava. OTHER: Unchanged calcifications over the left axilla. IMPRESSION: Persistent dense left basilar opacity, likely combination airspace disease, atelectasis and effusion. Stable small bilateral effusions, left greater than right. Stable large cardiac silhouette. TECHNICAL DOCUMENTATION: JOB ID: [id number] [employer]- All Rights Reserved Reading location - IP/workstation name: [email or web address]
[2018-12-20] MEDS: PIPERACILLIN SODIUM/TAZOBACTAM 3.375 GM in NORMAL SALINE 100 ML IV SCH ×2 (13:12→17:05)
--- NOTE | 2018-12-20 15:45 | RADIOLOGY REPORT (SQ) ---
EXAM DESCRIPTION: CT CHEST WITHOUT COMPLETED DATE/TIME: 12/20/2018 3:28 pm REASON FOR STUDY: pneumonia COMPARISON: Same day radiograph, 12/13/2018 TECHNIQUE: CT scan performed of the chest without intravenous contrast. Images reviewed with lung, soft tissue and bone windows. Reconstructed coronal and sagittal MPR images reviewed. All images st ored on PACS. All CT scanners at this facility use dose modulation, iterative reconstruction, and/or weight based d osing when appropriate to reduce radiation dose to as low as reasonably achievable (ALARA). [facility]: Dose Right [facility]: CareDose [facility]: Dose Right [facility]: Teradose 4D [facility]: Xpreso RADIATION DOSE: CT Rad equipment meets quality standard of care and radiation dose reduction techniq ues were employed. CTDIvol: 19.5 mGy. DLP: 798 mGy-cm. mGy. LIMITATIONS: No technical limitations. FINDINGS: LUNGS AND PLEURA: Small bilateral pleural effusions, left greater than right. There are p atchy bilateral ground-glass opacities not significantly changed from prior. Additional dense consol idation within the bilateral lower lobes, likely atelectasis. No pneumothorax. HILAR AND MEDIASTINAL STRUCTURES: No identified masses or abnormal nodes. No obvious aneurysm. HEART AND VASCULAR STRUCTURES: Scattered coronary atherosclerosis. Trace pericardial effusion. Enla rged heart, stable. UPPER ABDOMEN: Hepatic steatosis. THYROID AND OTHER SOFT TISSUES: No masses. No adenopathy. BONES: No significant finding. HARDWARE: None in the chest. OTHER: No other significant findings. IMPRESSION: Grossly stable appearance of the chest with small bilateral effusions, left greater than right and associated bibasilar consolidation, likely atelectasis. Patchy additional bilateral groun d-glass opacities, likely infectious/inflammatory. Coronary atherosclerosis. Hepatic steatosis. TECHNICAL DOCUMENTATION: JOB ID: [id number] Quality ID # [id number]: Final reports with documentation of one or more dose reduction techniques (e.g., Au tomated exposure control, adjustment of the mA and/or kV according to patient size, use of iterative reconstruction technique) 2010 [employer]- All Rights Reserved Reading location - IP/workstation name: [email or web address]
[2018-12-20] MEDS: GABAPENTIN 300 MG CAPSULE PO SCH (21:24)
[2018-12-20] MEDS: VANCOMYCIN HCL 1,250 MG in DEXTROSE 5%-WATER 250 ML IV SCH (21:28)
[2018-12-20] MEDS ORDERED: VASOPRESSIN INJ 20 UNIT/1 ML VIAL ONE (22:39)
[2018-12-20] MEDS ORDERED: DEXTROSE 5%-WATER 250 ML with VASOPRESSIN 100 UNIT IV PRN ×2 (22:43)
[2018-12-20] MEDS ORDERED: VASOPRESSIN INJ 20 UNIT/1 ML VIAL IV PRN (22:44)
[2018-12-21 04:42] LABS: ABSOLUTE EOSINOPHILS # (AUTO) 0.1 10^3/uL (0.0-0.6); ABSOLUTE LYMPHOCYTES (AUTO) 1.8 10^3/uL (0.5-4.7); ABSOLUTE MONOCYTES (AUTO) 0.4 10^3/uL (0.1-1.4); ABSOLUTE NEUT (AUTO) 3.8 10^3/uL (1.7-8.2); BASOPHILS % (AUTO) 0.7 % (0-2); EOSINOPHILS % (AUTO) 1.4 % (0-6); HEMATOCRIT 25.8 % (37.9-51.0); HEMOGLOBIN 8.7 g/dL (13.5-17.0); LYMPHOCYTES % (AUTO) 29.5 % (13-45); MEAN CORPUSCULAR HEMOGLOBIN 32.5 pg (27.0-33.4); MEAN CORPUSCULAR HGB CONC 33.9 g/dL (32.0-36.0); MEAN CORPUSCULAR VOLUME 96 fl (80-97); MONOCYTES % (AUTO) 6.8 % (3-13); PLATELET COUNT 284 10^3/uL (150-450); RED BLOOD COUNT 2.69 10^6/uL (4.35-5.55); RED CELL DISTRIBUTION WIDTH 14.6 % (11.5-14.0); SEGMENTED NEUTROPHILS % (AUTO) 61.6 % (42-78); TOTAL CELLS COUNTED % (AUTO) 100 %; WHITE BLOOD COUNT 6.2 10^3/uL (4.0-10.5)
[2018-12-21 05:02] LABS: ALANINE AMINOTRANSFERASE 62 U/L (21-72); ALKALINE PHOSPHATASE 103 U/L (38-126); ASPARTATE AMINO TRANSFERASE 55 U/L (17-59); BILIRUBIN,DIRECT 0.4 mg/dL (0.0-0.4); BILIRUBIN,TOTAL 0.6 mg/dL (0.2-1.3); BLOOD UREA NITROGEN 5 mg/dL (7-20); CALCIUM 8.2 mg/dL (8.4-10.2); GLUCOSE 73 mg/dL (75-110); POTASSIUM 3.6 mmol/L (3.6-5.0); TOTAL PROTEIN 3.9 g/dL (6.3-8.2)
[2018-12-21 05:07] LABS: CARBON DIOXIDE 26 mmol/L (22-30); CHLORIDE 113 mmol/L (98-107); SODIUM 140.7 mmol/L (137-145)
[2018-12-21] MEDS: BUPROPION HCL 100 MG TABLET PO SCH ×3 (05:11→22:23)
[2018-12-21] MEDS: PIPERACILLIN SODIUM/TAZOBACTAM 3.375 GM in NORMAL SALINE 100 ML IV SCH ×5 (05:11→17:06)
[2018-12-21 05:14] LABS: ANION GAP 2 (5-19)
[2018-12-21] MEDS: PANTOPRAZOLE SODIUM 40 MG TABLET.DR PO SCH (07:30)
[2018-12-21] MEDS: MIDODRINE HCL 5 MG TABLET PO SCH ×3 (07:30→15:06)
[2018-12-21] MEDS ORDERED: NORMAL SALINE 250 ML IV PRN ×2 (07:56)
[2018-12-21] MEDS: ALBUMIN HUMAN 12.5 GM/50 ML RTUINJ IV SCH ×4 (08:16→11:07)
[2018-12-21] MEDS: APIXABAN 5 MG TABLET PO SCH (09:14)
[2018-12-21] MEDS: CALCIUM CARBONATE 250 MG/VITAMIN D3 125 UNIT TABLET PO SCH ×2 (09:14→17:07)
[2018-12-21] MEDS: OXYCODONE HCL IR 5 MG TABLET PO SCH ×2 (09:15→22:23)
[2018-12-21] MEDS: VANCOMYCIN HCL 1,250 MG in DEXTROSE 5%-WATER 250 ML IV SCH ×2 (09:16→22:23)
[2018-12-21] MEDS: DILTIAZEM HCL 120 MG CAP.SR.24H PO SCH (09:38)
[2018-12-21] MEDS: DIGOXIN 0.125 MG TABLET PO SCH (09:39)
[2018-12-21] MEDS ORDERED: FUROSEMIDE INJ/PF 40 MG/4 ML SDV IV ONE (11:22)
--- NOTE | 2018-12-21 11:22 | PDOC PROGRESS REPORT ---
Subjective Progress Note for:: 12/21/18 Subjective:: 68 years old male patient with past medical history of chronic atrial fibrillation, coronary artery disease, COPD, hypertension and hypothyroidism presented with generalized weakness and diarrhea. Patient has been treated as a case of healthcare associated pneumonia with Zosyn and vancomycin. Not patient was admitted in September 2018 for hypovolemic shock. His urine culture is positive for E. coli which is pansensitive and his blood culture grew gram- positive cocci in cluster which is identified as Staphylococcus, Auricularis which is pansensitive except for erythromycin. Zosyn and vancomycin discontinued and patient switched to ceftriaxone. About 3 days ago patient was hypotensive and had been on Levophed which is discontinued now. About 2 days ago patient was scheduled to transfer to [facility] but the transfer on hold since his blood pressure started to drop again. He is bolused with thousand mL of normal saline and maintained at 125 mL/h. He saturates at 95% on room air. Patient is a candidate for rehab placement. 12/19/[id number]-old male with multiple medical problems in the ICU for hypotension. He has pneumonia getting antibiotic therapy. Latest blood cultures are negative. Patient is hypotensive last night he received 3 L of IV fluids and 50% of albumin. He is also on Levophed for a short while blood pressure is improved to 120/73 today. On examination patient have crackles in the chest and bilateral 2+ pedal edema present. To stop Levophed stop IV fluids for now and to reevaluate her blood pressures q. one hour. Necessary will put him back on pressors. It is afebrile T-max is 97.6. Comfortably in the bed pu lse ox is 98% 3 L complaining of tremors wants something for it other than that no complaints. 12/20/2018-no acute events in the last 24 hours. Patient blood pressure this morning 120/70. Chest x-ray done yesterday shows possible worsening of the pulmonary opacities. Patient alert and awake communicating very well. To give IV Lasix 1 dose. Pulse ox is 95% on 3 L. To stop IV Rocephin start on IV vancomycin, IV Zosyn from today. To do the CT chest without contrast today to get further information about the pneumonia. Plan is to continue his IV albumin. 12/21/2018-no acute events in the last 24 hours. Patient blood pressure is still soft it is 107/70. Presently on Midodrin 10 mg p.o. 3 times daily patient is not on IV fluids not on vasopressors. Alert and awake communicating well denies any complaints. I reviewed the CT chest with Dr. Farfan his recommendation is to do the thoracentesis. Patient is presently on apixaban, which is going to be on hold and started on heparin drip. Probably thoracentesis will be done tomorrow heparin drip will be stopped 6 hours prior to thoracentesis tomorrow. Reason For Visit: SEPSIS,[place],LLL PNA Physical Exam Vital Signs: Temp Pulse Resp BP Pulse Ox 97.7 F 66 14 107/76 90 L 12/21/18 08:00 12/21/18 10:00 12/21/18 10:00 12/21/18 10:00 12/21/18 10:00 Intake & Output 12/20/18 12/21/18 12/22/18 06:59 06:59 06:59 Intake Total 2272 1320 951 Output Total 685 2685 50 Balance 1587 -1365 901 Weight 149 kg 147.1 kg General appearance: PRESENT: no acute distress, obese Head exam: PRESENT: atraumatic Eye exam: PRESENT: PERRLA Mouth exam: PRESENT: moist, tongue midline Neck exam: ABSENT: carotid bruit, JVD, lymphadenopathy, thyromegaly Respiratory exam: PRESENT: crackles, decreased breath sounds, rhonchi Cardiovascular exam: PRESENT: irregular rhythm, systolic murmur GI/Abdominal exam: PRESENT: normal bowel sounds, soft. ABSENT: distended, guarding, mass, organolmegaly, rebound, tenderness Gentrourinary exam: PRESENT: indwelling catheter Extremities exam: PRESENT: +2 edema Neurological exam: PRESENT: alert, awake, oriented to person, oriented to place, oriented to time, oriented to situation, CN II-XII grossly intact. ABSENT: motor sensory deficit Psychiatric exam: PRESENT: appropriate affect, normal mood. ABSENT: homicidal ideation, suicidal ideation Results Laboratory Results: 12/21/18 04:16 12/21/18 04:16 12/21/18 12/21/18 04:16 04:16 WBC 6.2 RBC 2.69 L Hgb 8.7 L Hct 25.8 L MCV 96 MCH 32.5 MCHC 33.9 RDW 14.6 H Plt Count 284 Seg Neutrophils % 61.6 Lymphocytes % 29.5 Monocytes % 6.8 Eosinophils % 1.4 Basophils % 0.7 Absolute Neutrophils 3.8 Absolute Lymphocytes 1.8 Absolute Monocytes 0.4 Absolute Eosinophils 0.1 Absolute Basophils 0.0 Sodium 140.7 Potassium 3.6 Chloride 113 H Carbon Dioxide 26 Anion Gap 2 L BUN 5 L Creatinine 0.62 Est GFR ( Amer) > 60 Est GFR (Non-Af Amer) > 60 Glucose 73 L Calcium 8.2 L Magnesium 1.7 Total Bilirubin 0.6 AST 55 ALT 62 Alkaline Phosphatase 103 Total Protein 3.9 L Albumin 2.0 L 12/10/18 12/11/18 12/12/18 14:30 04:48 04:08 Troponin I 0.038 NT-Pro-B Natriuret Pep 8520 H 7630 H 8760 H 12/13/18 12/15/18 12/21/18 04:35 05:15 04:16 Troponin I NT-Pro-B Natriuret Pep 77265 H 6410 H 30095 H Impressions: Chest CT 12/20/18 00:00 IMPRESSION: Grossly stable appearance of the chest with small bilateral effusions, left greater than right and associated bibasilar consolidation, likely atelectasis. Patchy additional bilateral ground-glass opacities, likely infectious/inflammatory. Coronary atherosclerosis. Hepatic steatosis. Chest X-Ray 12/20/18 00:00 IMPRESSION: Persistent dense left basilar opacity, likely combination airspace disease, atelectasis and effusion. Stable small bilateral effusions, left greater than right. Stable large cardiac silhouette. Assessment and Plan - Diagnosis (1) Persistent hypotension Is this a current diagnosis for this admission?: Yes Plan: Patient's blood pressure started to drop again. There is no identifiable cause. He is on midodrine 10 mg twice daily and normal saline at rate of 125 mm/h. 12/19/2018-patient is persistently hypotensive last night is received 3 L of IV fluids and on Levophed for a short while this morning blood pressure is improved to 120/73. Patient is asymptomatic. Patient is also received 50% albumin. Plan is to discontinue IV fluids discontinue Levophed today and closely monitor his blood pressures because BNP went up to 6400 and chest examination shows bilateral crackles and crepitations. Chest x-ray was requested for today. Latest blood cultures from 12/10/2018 are negative. Patient please presently on Rocephin. Midrin dose is increased to 10 mg 3 times a day. 12/20/2018-blood pressure today is 120/77 today. Patient is asymptomatic. Patient is off Levophed off IV fluids and off the pressors. Albumin is 1.6 he is going to receive 50 g of IV albumin today. Patient is presently on Midodrin 10 mg p.o. 3 times daily. Chest x-ray shows worsening of the pulmonary opacities IV Rocephin is discontinued started on IV Zosyn and vancomycin today. To do the CT chest without contrast to get further information about the pneum onia. Latest blood cultures are negative. 12/21/2018-patient's latest blood pressure is around 107/70 patient is on Midodrin 10 mg p.o. 3 times daily and not on IV fluids not on pressors. Chest x-ray suggestive of pulmonary edema and infiltrates. Dr. Blount thinks hypertension most likely secondary to pneumonia. Started back on vancomycin and Zosyn. Patient is afebrile. latest blood Cultures are negative so far. Patient is receiving IV albumin to improve his nutritional status and it improved his urinary output. (2) Sepsis Qualifiers: Sepsis type: sepsis due to unspecified organism Qualified Code(s): A41.9 - Sepsis, unspecified organism Is this a current diagnosis for this admission?: Yes Plan: Is being treated. 12/19/2018-patient was admitted with sepsis and hypovolemic shock. Presently on IV Rocephin. Blood cultures from 12/10/2018-. Pulse oxes 98% on 3 L. Plan is to repeat the blood cultures. Patient is still persistently hypotensive. 12/20/2018-patient was treated with sepsis in association with hypovolemic shock. Latest blood cultures are negative. Blood pressure is improved today. But chest x-ray shows worsening of the pulmonary opacities. To repeat the blood cultures today. Started on IV Zosyn and IV vancomycin today. 12/21/2018-patient was treated with sepsis in association with hypovolemic shock. Because of the persistent infiltrates in the lungs started back on Zosyn and vancomycin yesterday he is afebrile. But blood pressures on the softer side. Blood cultures done from 12/20/2018 are negative so far. Blood cultures from 12/10/2018 are negative. (3) Healthcare-associated pneumonia Is this a current diagnosis for this admission?: Yes Plan: As in sepsis above 12/19/2018-patient healthcare associated pneumonia initially treated with IV Zosyn and vancomycin blood cultures from 12/10/2017-. Presently on IV ceftriaxone. Plan is to continue the present management repeat chest x-ray was requested for today. 12/20/2018-patient had healthcare associated pneumonia he was treated with IV vancomycin and Zosyn initially now he is on IV ceftriaxone plan is to discontinue IV ceftriaxone and restart on IV Zosyn and vancomycin. Tunneling Machine Operator on board. Requested for blood cultures and sputum cultures again today. Plan to do the CT chest without contrast to get further information about pneumonia. pt is afebrile. 12/21/2018-patient developed healthcare associated pneumonia presently on IV vancomycin and Zosyn. CT scan done yesterday shows worsening opacification and edema. Dr. Farfan is following the patient regular basis. Requested for a s putum cultures. (4) Acute kidney injury Is this a current diagnosis for this admission?: Yes Plan: Due to sepsis. Given IV fluids and monitoring his urine output 12/19/2018-patient's admission creatinine on 12/10/2018 is 1.72 it is improved 0.63 today. Acute kidney injury due to ATN due to prerenal causes/sepsis resolving. 12/20/2018-patient's admission creatinine on 12/10/2018 is 1.7 and it was improved to 0.63. Acute kidney injury most likely secondary to ATN due to sepsis is resolving. 12/21/2018-patient's creatinine creatinine is 0.62 on admission it is 1.5 acute kidney injury most likely secondary to sepsis resolved. (5) Atrial fibrillation Qualifiers: Atrial fibrillation type: chronic Qualified Code(s): I48.2 - Chronic atrial fibrillation Is this a current diagnosis for this admission?: No Plan: Continue anticoagulation and rate control drugs. Holding Cardizem for now due to his blood pressures, but will continue the metoprolol and digoxin 12/19/2018-patient has history of chronic atrial fibrillation on apixaban at home. Rate controlled. To restart his Cardizem and metoprolol, digoxin today. To watch for the blood pressures today. If the blood pressures dropping we may have to hold these medications. 12/20/2018-patient has history of chronic atrial fibrillation and apixaban been at home heart rate is well controlled. We started him back on p.o. Cardizem, metoprolol, digoxin from yesterday. Blood pressures are stable. 12/21/2018-patient has history of chronic atrial fibrillation and on apixaban, rate is in the 50s this morning. Metoprolol and digoxin and Cardizem on hold today. Patient is going for thoracentesis tomorrow apixaban is on hold started on heparin drip. (6) Hypocalcemia Is this a current diagnosis for this admission?: Yes Plan: Probably associated with his hypoalbuminemia. I requested ionized fraction of calcium. Patient started on calcium carbonate with vitamin D. 12/19/2018-patient serum calcium is 7.7 and albumin is 1.4 corrected calcium is more than 8.5. Plan to give IV albumin today. 12/20/2018-patient's latest serum calcium is 7.7 and albumin is 1.6 today's labs are pending corrected calcium is close to 9. Plan is to continue the present management. 12/21/2018-serum calcium levels are borderline low and patient is receiving calcium supplementation. Corrected calcium is within the normal range. (7) CHF (congestive heart failure) Is this a current diagnosis for this admission?: No Plan: 12/19/2018-patient has echocardiogram was done on 12/13/2017 the impression is patient has low normal left ventricular systolic function and unable to assess the diastolic function because of chronic atrial fibrillation. In my opinion patient may have a chronic bilateral heart failure. His BNP 6400 and chest x- ray shows central edema. Plan is to watch for the fluid overload. Patient received 3 L of IV fluids because of hypotension last night. 12/20/2018-echocardiogram shows patient has low normal left ventricular systolic function and unable to assess the diastolic function because of the atrial fibri llation. 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 He still have 2+ pedal edema. BNP was 6400 yesterday. Blood pressure was improved today to 120/77 to give Lasix 40 mg IV 1 dose today. plan to repeat the labs tomorrow including BMP tomorrow. 12/21/2018-echocardiogram was done recently shows low normal left ventricular systolic function and because of the atrial fibrillation unable to assess the diastolic function most likely patient has biventricular heart failure BNP el evated to 12,900 today. Plan to give her 40 mg of IV Lasix today if able to tolerate. (8) Obesity (BMI 30-39.9) Is this a current diagnosis for this admission?: No Plan: 12/21/2018-patient has history of obesity with BMI is more than 35. But is also at the time hypoalbuminemic. pt Is getting albumin supplementations, nutrition supplementations. dietecian is on board. (9) Pleural effusion Is this a current diagnosis for this admission?: Yes Plan: Possibly parapneumonic effusion 12/21/2018-patient has bilateral pleural effusions probably going to have tho racentesis tomorrow. This pleural effusions may be secondary to both underlying CHF and pneumonia. - Time Time Spent with patient: 25-34 minutes Medications reviewed and adjusted accordingly: Yes Anticipated discharge: [facility]
[2018-12-21 13:10] LABS: APPEARANCE,URINE CLEAR; BILIRUBIN,URINE NEGATIVE (NEGATIVE); COLOR,URINE COLORLESS; GLUCOSE, URINE NEGATIVE (NEGATIVE); KETONES,URINE NEGATIVE (NEGATIVE); LEUKOCYTE ESTERASE,URINE TRACE (NEGATIVE); NITRITE,URINE NEGATIVE (NEGATIVE); PROTEIN,URINE NEGATIVE (NEGATIVE); URINE SPECIFIC GRAVITY 1.004; UROBILINOGEN,URINE NEGATIVE mg/dL (<2.0)
[2018-12-21 13:11] LABS: ABSOLUTE EOSINOPHILS # (AUTO) 0.1 10^3/uL (0.0-0.6); ABSOLUTE LYMPHOCYTES (AUTO) 1.4 10^3/uL (0.5-4.7); ABSOLUTE MONOCYTES (AUTO) 0.4 10^3/uL (0.1-1.4); ABSOLUTE NEUT (AUTO) 4.2 10^3/uL (1.7-8.2); BASOPHILS % (AUTO) 0.7 % (0-2); EOSINOPHILS % (AUTO) 1.7 % (0-6); HEMATOCRIT 28.1 % (37.9-51.0); HEMOGLOBIN 9.5 g/dL (13.5-17.0); LYMPHOCYTES % (AUTO) 22.4 % (13-45); MEAN CORPUSCULAR HEMOGLOBIN 32.5 pg (27.0-33.4); MEAN CORPUSCULAR HGB CONC 33.9 g/dL (32.0-36.0); MEAN CORPUSCULAR VOLUME 96 fl (80-97); MONOCYTES % (AUTO) 7.1 % (3-13); PLATELET COUNT 297 10^3/uL (150-450); RED BLOOD COUNT 2.93 10^6/uL (4.35-5.55); RED CELL DISTRIBUTION WIDTH 14.5 % (11.5-14.0); SEGMENTED NEUTROPHILS % (AUTO) 68.1 % (42-78); TOTAL CELLS COUNTED % (AUTO) 100 %; WHITE BLOOD COUNT 6.2 10^3/uL (4.0-10.5)
[2018-12-21 13:28] LABS: INTERNATIONAL RATION (INR) 1.54; PROTHROMBIN TIME 19.2 SEC (11.4-15.4)
[2018-12-21] MEDS ORDERED: HEPARIN SOD (PORCINE) 1,000 UNIT/ML 10 ML VIAL IV PRN (14:30)
[2018-12-21] MEDS ORDERED: HEPARIN SODIUM,PORCINE/D5W 25,000 UNIT/250 ML RTUINJ IV PRN (14:30)
[2018-12-21] MEDS: HEPARIN SODIUM,PORCINE/D5W 25,000 UNIT/250 ML RTUINJ IV PRN (15:26)
[2018-12-21 17:16] LABS: HEMATOCRIT 30.7 % (37.9-51.0); HEMOGLOBIN 10.4 g/dL (13.5-17.0); MEAN CORPUSCULAR HEMOGLOBIN 32.3 pg (27.0-33.4); MEAN CORPUSCULAR HGB CONC 33.9 g/dL (32.0-36.0); MEAN CORPUSCULAR VOLUME 95 fl (80-97); PLATELET COUNT 300 10^3/uL (150-450); RED BLOOD COUNT 3.23 10^6/uL (4.35-5.55); RED CELL DISTRIBUTION WIDTH 14.3 % (11.5-14.0); WHITE BLOOD COUNT 6.6 10^3/uL (4.0-10.5)
[2018-12-21] MEDS: GABAPENTIN 300 MG CAPSULE PO SCH (22:23)
[2018-12-22] MEDS: PIPERACILLIN SODIUM/TAZOBACTAM 3.375 GM in NORMAL SALINE 100 ML IV SCH ×4 (01:01→17:31)
[2018-12-22] MEDS: BUPROPION HCL 100 MG TABLET PO SCH ×3 (05:05→21:29)
[2018-12-22 05:20] LABS: ABSOLUTE EOSINOPHILS # (AUTO) 0.1 10^3/uL (0.0-0.6); ABSOLUTE LYMPHOCYTES (AUTO) 1.5 10^3/uL (0.5-4.7); ABSOLUTE MONOCYTES (AUTO) 0.4 10^3/uL (0.1-1.4); ABSOLUTE NEUT (AUTO) 4.1 10^3/uL (1.7-8.2); BASOPHILS % (AUTO) 0.7 % (0-2); EOSINOPHILS % (AUTO) 1.5 % (0-6); HEMATOCRIT 28.1 % (37.9-51.0); HEMOGLOBIN 9.7 g/dL (13.5-17.0); LYMPHOCYTES % (AUTO) 23.9 % (13-45); MEAN CORPUSCULAR HEMOGLOBIN 32.7 pg (27.0-33.4); MEAN CORPUSCULAR HGB CONC 34.5 g/dL (32.0-36.0); MEAN CORPUSCULAR VOLUME 95 fl (80-97); MONOCYTES % (AUTO) 7.1 % (3-13); PLATELET COUNT 288 10^3/uL (150-450); RED BLOOD COUNT 2.97 10^6/uL (4.35-5.55); RED CELL DISTRIBUTION WIDTH 14.6 % (11.5-14.0); SEGMENTED NEUTROPHILS % (AUTO) 66.8 % (42-78); TOTAL CELLS COUNTED % (AUTO) 100 %; WHITE BLOOD COUNT 6.2 10^3/uL (4.0-10.5)
[2018-12-22 05:29] LABS: INTERNATIONAL RATION (INR) 1.67; PROTHROMBIN TIME 20.5 SEC (11.4-15.4)
[2018-12-22 05:30] LABS: PARTIAL THROMBOPLASTIN TIME 61.4 SEC (23.5-35.8)
[2018-12-22 05:37] LABS: ALANINE AMINOTRANSFERASE 55 U/L (21-72); ALKALINE PHOSPHATASE 100 U/L (38-126); ASPARTATE AMINO TRANSFERASE 52 U/L (17-59); BILIRUBIN,DIRECT 0.4 mg/dL (0.0-0.4); BILIRUBIN,TOTAL 0.8 mg/dL (0.2-1.3); BLOOD UREA NITROGEN 5 mg/dL (7-20); CALCIUM 8.2 mg/dL (8.4-10.2); GLUCOSE 70 mg/dL (75-110); POTASSIUM 3.3 mmol/L (3.6-5.0); TOTAL PROTEIN 3.9 g/dL (6.3-8.2)
[2018-12-22 05:42] LABS: CARBON DIOXIDE 27 mmol/L (22-30); CHLORIDE 112 mmol/L (98-107); SODIUM 141.2 mmol/L (137-145)
[2018-12-22 05:46] LABS: ANION GAP 2 (5-19)
[2018-12-22] MEDS: PANTOPRAZOLE SODIUM 40 MG TABLET.DR PO SCH (09:38)
[2018-12-22] MEDS: POTASSIUM CHLORIDE 10 MEQ CAPSULE.ER PO SCH (09:39)
[2018-12-22] MEDS: OXYCODONE HCL IR 5 MG TABLET PO SCH (09:40)
[2018-12-22] MEDS: MAGNESIUM OXIDE 400 MG TABLET PO SCH ×2 (09:43→17:31)
[2018-12-22] MEDS: DIGOXIN 0.125 MG TABLET PO SCH (09:43)
[2018-12-22] MEDS: DILTIAZEM HCL 120 MG CAP.SR.24H PO SCH (09:44)
[2018-12-22] MEDS: ALBUMIN HUMAN 12.5 GM/50 ML RTUINJ IV SCH ×4 (09:45→16:12)
[2018-12-22] MEDS: MIDODRINE HCL 5 MG TABLET PO SCH ×3 (09:52→15:51)
--- NOTE | 2018-12-22 10:09 | PDOC PROGRESS REPORT ---
Subjective Progress Note for:: 12/22/18 Subjective:: 68 years old male patient with past medical history of chronic atrial fibrillation, coronary artery disease, COPD, hypertension and hypothyroidism presented with generalized weakness and diarrhea. Patient has been treated as a case of healthcare associated pneumonia with Zosyn and vancomycin. Not patient was admitted in September 2018 for hypovolemic shock. His urine culture is positive for E. coli which is pansensitive and his blood culture grew gram- positive cocci in cluster which is identified as Staphylococcus, Auricularis which is pansensitive except for erythromycin. Zosyn and vancomycin discontinued and patient switched to ceftriaxone. About 3 days ago patient was hypotensive and had been on Levophed which is discontinued now. About 2 days ago patient was scheduled to transfer to [facility] but the transfer on hold since his blood pressure started to drop again. He is bolused with thousand mL of normal saline and maintained at 125 mL/h. He saturates at 95% on room air. Patient is a candidate for rehab placement. 12/19/[id number]-ueot-old male with multiple medical problems in the ICU for hypotension. He has pneumonia getting antibiotic therapy. Latest blood cultures are negative. Patient is hypotensive last night he received 3 L of IV fluids and 50% of albumin. He is also on Levophed for a short while blood pressure is improved to 120/73 today. On examination patient have crackles in the chest and bilateral 2+ pedal edema present. To stop Levophed stop IV fluids for now and to reevaluate her blood pressures q. one hour. Necessary will put him back on pressors. It is afebrile T-max is 97.6. Comfortably in the bed pu lse ox is 98% 3 L complaining of tremors wants something for it other than that no complaints. 12/20/2018-no acute events in the last 24 hours. Patient blood pressure this morning 120/70. Chest x-ray done yesterday shows possible worsening of the pulmonary opacities. Patient alert and awake communicating very well. To give IV Lasix 1 dose. Pulse ox is 95% on 3 L. To stop IV Rocephin start on IV vancomycin, IV Zosyn from today. To do the CT chest without contrast today to get further information about the pneumonia. Plan is to continue his IV albumin. 12/21/2018-no acute events in the last 24 hours. Patient blood pressure is still soft it is 107/70. Presently on Midodrin 10 mg p.o. 3 times daily patient is not on IV fluids not on vasopressors. Alert and awake communicating well denies any complaints. I reviewed the CT chest with Dr. Farfan his recommendation is to do the thoracentesis. Patient is presently on apixaban, which is going to be on hold and started on heparin drip. Probably thoracentesis will be done tomorrow heparin drip will be stopped 6 hours prior to thoracentesis tomorrow. 12/22/2018-no acute events in the last 24 hours. Pulse ox is 100% on 2 L. Pat cait's blood pressure is on the softer side 104/54 on Midodrin 10 mg p.o. 3 times daily. Thoracentesis is postponed for tomorrow because patient is on apixaban until yesterday. Patient denies any complaints. Urinary output is stable. Reason For Visit: SEPSIS,[place]UST[place],LLL PNA Physical Exam Vital Signs: Temp Pulse Resp BP Pulse Ox 98.1 F 60 15 104/54 L 100 12/22/18 08:00 12/22/18 08:00 12/22/18 08:00 12/22/18 08:00 12/22/18 08:00 Intake & Output 12/21/18 12/22/18 12/23/18 06:59 06:59 06:59 Intake Total 1320 2274 Output Total 2685 3160 35 Balance -1365 -886 -35 Weight 147.1 kg 144.6 kg General appearance: PRESENT: no acute distress, obese Head exam: PRESENT: atraumatic Eye exam: PRESENT: PERRLA Mouth exam: PRESENT: moist, tongue midline Neck exam: ABSENT: carotid bruit, JVD, lymphadenopathy, thyromegaly Respiratory exam: PRESENT: decreased breath sounds Cardiovascular exam: PRESENT: irregular rhythm, systolic murmur, tachycardia Pulses: PRESENT: normal dorsalis pedis pul GI/Abdominal exam: PRESENT: normal bowel sounds, soft. ABSENT: distended, guarding, mass, organolmegaly, rebound, tenderness Gentrourinary exam: PRESENT: indwelling catheter Extremities exam: PRESENT: +2 edema Neurological exam: PRESENT: alert, awake, oriented to person, oriented to place, oriented to time, oriented to situation, CN II-XII grossly intact. ABSENT: motor sensory deficit Psychiatric exam: PRESENT: appropriate affect, normal mood. ABSENT: homicidal ideation, suicidal ideation Results Laboratory Results: 12/22/18 05:00 12/22/18 05:00 12/21/18 12/21/18 12/21/18 09:27 12:50 12:50 WBC 6.2 RBC 2.93 L Hgb 9.5 L Hct 28.1 L MCV 96 MCH 32.5 MCHC 33.9 RDW 14.5 H Plt Count 297 Seg Neutrophils % 68.1 Lymphocytes % 22.4 Monocytes % 7.1 Eosinophils % 1.7 Basophils % 0.7 Absolute Neutrophils 4.2 Absolute Lymphocytes 1.4 Absolute Monocytes 0.4 Absolute Eosinophils 0.1 Absolute Basophils 0.0 Sodium Potassium Chloride Carbon Dioxide Anion Gap BUN Creatinine Est GFR ( Amer) Est GFR (Non-Af Amer) Glucose Calcium Magnesium Total Bilirubin AST ALT Alkaline Phosphatase Total Protein Albumin Urine Color COLORLESS Urine Appearance CLEAR Urine pH 5.0 Ur Specific [place] 1.004 Urine Protein NEGATIVE Urine Glucose (UA) NEGATIVE Urine Ketones NEGATIVE Urine Blood NEGATIVE Urine Nitrite NEGATIVE Ur Leukocyte Esterase TRACE H Urine WBC (Auto) 18 Urine RBC (Auto) 0 Blood Type A POSITIVE Antibody Screen NEGATIVE 12/21/18 12/22/18 12/22/18 17:00 05:00 05:00 WBC 6.6 6.2 RBC 3.23 L 2.97 L Hgb 10.4 L 9.7 L Hct 30.7 L 28.1 L MCV 95 95 MCH 32.3 32.7 MCHC 33.9 34.5 RDW 14.3 H 14.6 H Plt Count 300 288 Seg Neutrophils % 66.8 Lymphocytes % 23.9 Monocytes % 7.1 Eosinophils % 1.5 Basophils % 0.7 Absolute Neutrophils 4.1 Absolute Lymphocytes 1.5 Absolute Monocytes 0.4 Absolute Eosinophils 0.1 Absolute Basophils 0.0 Sodium 141.2 Potassium 3.3 L Chloride 112 H Carbon Dioxide 27 Anion Gap 2 L BUN 5 L Creatinine 0.59 Est GFR ( Amer) > 60 Est GFR (Non-Af Amer) > 60 Glucose 70 L Calcium 8.2 L Magnesium 1.6 Total Bilirubin 0.8 AST 52 ALT 55 Alkaline Phosphatase 100 Total Protein 3.9 L Albumin 2.0 L Urine Color Urine Appearance Urine pH Ur Specific [place] Urine Protein Urine Glucose (UA) Urine Ketones Urine Blood Urine Nitrite Ur Leukocyte Esterase Urine WBC (Auto) Urine RBC (Auto) Blood Type Antibody Screen 12/10/18 12/11/18 12/12/18 14:30 04:48 04:08 Troponin I 0.038 NT-Pro-B Natriuret Pep 8520 H 7630 H 8760 H 12/13/18 12/15/18 12/21/18 04:35 05:15 04:16 Troponin I NT-Pro-B Natriuret Pep 15307 H 6410 H 50537 H Impressions: Chest CT 12/20/18 00:00 IMPRESSION: Grossly stable appearance of the chest with small bilateral effusions, left greater than right and associated bibasilar consolidation, likely atelectasis. Patchy additional bilateral ground-glass opacities, likely infectious/inflammatory. Coronary atherosclerosis. Hepatic steatosis. Chest X-Ray 12/20/18 00:00 IMPRESSION: Persistent dense left basilar opacity, likely combination airspace disease, atelectasis and effusion. Stable small bilateral effusions, left greater than right. Stable large cardiac silhouette. Assessment and Plan - Diagnosis (1) Persistent hypotension Is this a current diagnosis for this admission?: Yes Plan: Patient's blood pressure started to drop again. There is no identifiable cause. He is on midodrine 10 mg twice daily and normal saline at rate of 125 mm/h. 12/19/2018-patient is persistently hypotensive last night is received 3 L of IV fluids and on Levophed for a short while this morning blood pressure is improved to 120/73. Patient is asymptomatic. Patient is also received 50% albumin. Plan is to discontinue IV fluids discontinue Levophed today and closely monitor his blood pressures because BNP went up to 6400 and chest examination shows bilateral crackles and crepitations. Chest x-ray was requested for today. Latest blood cultures from 12/10/2018 are negative. Patient please presently on Rocephin. Midrin dose is increased to 10 mg 3 times a day. 12/20/2018-blood pressure today is 120/77 today. Patient is asymptomatic. Patient is off Levophed off IV fluids and off the pressors. Albumin is 1.6 he is going to receive 50 g of IV albumin today. Patient is presently on Midodrin 10 mg p.o. 3 times daily. Chest x-ray shows worsening of the pulmonary opacities IV Rocephin is discontinued started on IV Zosyn and vancomycin today. To do the CT chest without contrast to get further information about the pneum onia. Latest blood cultures are negative. 12/21/2018-patient's latest blood pressure is around 107/70 patient is on Midodrin 10 mg p.o. 3 times daily and not on IV fluids not on pressors. Chest x-ray suggestive of pulmonary edema and infiltrates. Dr. Blount thinks hypertension most likely secondary to pneumonia. Started back on vancomycin and Zosyn. Patient is afebrile. latest blood Cultures are negative so far. Patient is receiving IV albumin to improve his nutritional status and it improved his urinary output. 12/22/2018-patient blood pressure is 104/54. On Midodrin 10 mg p.o. 3 times daily not on IV fluids are not on vasopressors. Chest x-ray dense left lower opacity and bilateral pleural effusions. Patient is going for thoracentesis tomorrow. Patient is presently on Zosyn and vancomycin. Blood cultures negative so far sputum cultures are pending. And is receiving daily albumin. (2) Sepsis Qualifiers: Sepsis type: sepsis due to unspecified organism Qualified Code(s): A41.9 - Sepsis, unspecified organism Is this a current diagnosis for this admission?: Yes Plan: Is being treated. 12/19/2018-patient was admitted with sepsis and hypovolemic shock. Presently on IV Rocephin. Blood cultures from 12/10/2018-. Pulse oxes 98% on 3 L. Plan is to repeat the blood cultures. Patient is still persistently hypotensive. 12/20/2018-patient was treated with sepsis in association with hypovolemic shock. Latest blood cultures are negative. Blood pressure is improved today. But chest x-ray shows worsening of the pulmonary opacities. To repeat the blood cultures today. Started on IV Zosyn and IV vancomycin today. 12/21/2018-patient was treated with sepsis in association with hypovolemic shock. Because of the persistent infiltrates in the lungs started back on Zosyn and vancomycin yesterday he is afebrile. But blood pressures on the softer side. Blood cultures done from 12/20/2018 are negative so far. Blood cultures from 12/10/2018 are negative. 12/22/2018-patient was treated initially with sepsis with hypotension patient is back on IV vancomycin and Zosyn. Afebrile. Blood cultures are negative. Sputum culture is pending. Plan is to continue the present management. (3) Healthcare-associated pneumonia Is this a current diagnosis for this admission?: Yes Plan: As in sepsis above 12/19/2018-patient healthcare associated pneumonia initially treated with IV Zosyn and vancomycin blood cultures from 12/10/2017-. Presently on IV ceftriaxone. Plan is to continue the present management repeat chest x-ray was requested for today. 12/20/2018-patient had healthcare associated pneumonia he was treated with IV vancomycin and Zosyn initially now he is on IV ceftriaxone plan is to discontinue IV ceftriaxone and restart on IV Zosyn and vancomycin. Hose Tubing Backer on board. Requested for blood cultures and sputum cultures again today. Plan to do the CT chest without contrast to get further information about pneumonia. pt is afebrile. 12/21/2018-patient developed healthcare associated pneumonia presently on IV vancomycin and Zosyn. CT scan done yesterday shows worsening opacification and edema. Dr. Farfan is following the patient regular basis. Requested for a sputum cultures. 12/22/2018-patient developed healthcare associated pneumonia on IV vancomycin and Zosyn chest x-ray shows left base opacification. Sputum cultures are pending. Latest blood cultures are negative. Most likely gram-positive organisms. (4) Acute kidney injury Is this a current diagnosis for this admission?: Yes Plan: Due to sepsis. Given IV fluids and monitoring his urine output 12/19/2018-patient's admission creatinine on 12/10/2018 is 1.72 it is improved 0.63 today. Acute kidney injury due to ATN due to prerenal causes/sepsis resolving. 12/20/2018-patient's admission creatinine on 12/10/2018 is 1.7 and it was improved to 0.63. Acute kidney injury most likely secondary to ATN due to sepsis is resolving. 12/21/2018-patient's creatinine creatinine is 0.62 on admission it is 1.5 acute kidney injury most likely secondary to sepsis resolved. 12/22/2018-patient creatinine today is 523172.6 acute kidney injury is resolved. (5) Atrial fibrillation Qualifiers: Atrial fibrillation type: chronic Qualified Code(s): I48.2 - Chronic atrial fibrillation Is this a current diagnosis for this admission?: No Plan: Continue anticoagulation and rate control drugs. Holding Cardizem for now due to his blood pressures, but will continue the metoprolol and digoxin 12/19/2018-patient has history of chronic atrial fibrillation on apixaban at home. Rate controlled. To restart his Cardizem and metoprolol, digoxin today. To watch for the blood pressures today. If the blood pressures dropping we may have to hold these medications. 12/20/2018-patient has history of chronic atrial fibrillation and apixaban been at home heart rate is well controlled. We started him back on p.o. Cardizem, metoprolol, digoxin from yesterday. Blood pressures are stable. 12/21/2018-patient has history of chronic atrial fibrillation and on apixaban, rate is in the 50s this morning. Metoprolol and digoxin and Cardizem on hold today. Patient is going for thoracentesis tomorrow apixaban is on hold started on heparin drip. 12/22/2018-patient has history of chronic atrial fibrillation on apixaban which was on hold for possible thoracentesis tomorrow. Patient is presently on heparin drip. (6) Hypocalcemia Is this a current diagnosis for this admission?: Yes Plan: Probably associated with his hypoalbuminemia. I requested ionized fraction of calcium. Patient started on calcium carbonate with vitamin D. 12/19/2018-patient serum calcium is 7.7 and albumin is 1.4 corrected calcium is more than 8.5. Plan to give IV albumin today. 12/20/2018-patient's latest serum calcium is 7.7 and albumin is 1.6 today's labs are pending corrected calcium is close to 9. Plan is to continue the present management. 12/21/2018-serum calcium levels are borderline low and patient is receiving calcium supplementation. Corrected calcium is within the normal range. (7) CHF (congestive heart failure) Is this a current diagnosis for this admission?: No Plan: 12/19/2018-patient has echocardiogram was done on 12/13/2017 the impression is patient has low normal left ventricular systolic function and unable to assess the diastolic function because of chronic atrial fibrillation. In my opinion patient may have a chronic bilateral heart failure. His BNP 6400 and chest x- ray shows central edema. Plan is to watch for the fluid overload. Patient received 3 L of IV fluids because of hypotension last night. 12/20/2018-echocardiogram shows patient has low normal left ventricular systolic function and unable to assess the diastolic function because of the atrial fibrillation. 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 He still have 2+ pedal edema. BNP was 6400 yesterday. Blood pressure was improved today to 120/77 to give Lasix 40 mg IV 1 dose today. plan to repeat the labs tomorrow including BMP tomorrow. 12/21/2018-echocardiogram was done recently shows low normal left ventricular systolic function and because of the atrial fibrillation unable to assess the diastolic function most likely patient has biventricular heart failure BNP elevated to 12,900 today. Plan to give her 40 mg of IV Lasix today if able to tolerate. 12/22/2018-patient still have a 2+ pedal edema. Yesterday urine output is 2600 mL and negative balance of 1360 mL. Patient's BNP yesterday was 12,900 plan to recheck the BNP tomorrow. Patient was placed on fluid restriction. Patient is receiving IV Lasix 40 mg daily and as needed basis. (8) Obesity (BMI 30-39.9) Is this a current diagnosis for this admission?: No (9) Pleural effusion Is this a current diagnosis for this admission?: Yes Plan: Possibly parapneumonic effusion 12/21/2018-patient has bilateral pleural effusions probably going to have thoracentesis tomorrow. This pleural effusions may be secondary to both underlying CHF and pneumonia. 12/22/2018-latest chest x-ray suggested bilateral pleural effusion is going for thoracentesis tomorrow. He is on heparin drip as as a bridge for anticoagu lation. Apixaban is on hold. (11) Hypoalbuminemia Is this a current diagnosis for this admission?: Yes Plan: 12/22/2018-patient's albumin level is 2.0 he is receiving 50 g of IV albumin on daily basis. Dietary consult was also requested. - Time Time Spent with patient: 25-34 minutes Medications reviewed and adjusted accordingly: Yes Anticipated discharge: SN[facility]
[2018-12-22 10:32] LABS: VANCOMYCIN,TROUGH 15.5 ug/mL (5.0-20.0)
[2018-12-22] MEDS: VANCOMYCIN HCL 1,250 MG in DEXTROSE 5%-WATER 250 ML IV SCH ×2 (10:47→21:29)
--- NOTE | 2018-12-22 11:37 | RADIOLOGY REPORT (SQ) ---
EXAM DESCRIPTION: CHEST SINGLE VIEW COMPLETED DATE/TIME: 12/22/2018 11:05 am REASON FOR STUDY: chf COMPARISON: CT chest 12/13/2018 Chest films 09/28/2018, 12/10/2018, 12/15/2018, 12/20/2018 EXAM PARAMETERS: NUMBER OF VIEWS: One view. TECHNIQUE: Single frontal radiographic view of the chest acquired. RADIATION DOSE: NA LIMITATIONS: Morbid obesity, portable technique FINDINGS: LUNGS AND PLEURA: Right lung grossly clear. No gross right pleural effusion or pneumothor ax. Persistent left retrocardiac consolidation worrisome for pneumonia, similar compared to 12/15/2018 and 12/10/2018. Small left pleural effusion may be present. No left pneumothorax. MEDIASTINUM AND HILAR STRUCTURES: No masses. Contour normal. HEART AND VASCULAR STRUCTURES: Cardiomegaly BONES: No acute findings. HARDWARE: Lower cervical fusion hardware OTHER: No other significant finding. IMPRESSION: Persistent left lower lobe pneumonia TECHNICAL DOCUMENTATION: JOB ID: [id number] [employer]- All Rights Reserved Reading location - IP/workstation name: [email or web address]
[2018-12-22] MEDS ORDERED: ALBUMIN HUMAN 12.5 GM/50 ML RTUINJ IV ONE (17:00)
[2018-12-22] MEDS: GABAPENTIN 300 MG CAPSULE PO SCH (21:29)
[2018-12-22] MEDS: OXYCODONE HCL SR 10 MG TABLET PO SCH (21:30)
[2018-12-22] MEDS: HEPARIN SODIUM,PORCINE/D5W 25,000 UNIT/250 ML RTUINJ IV PRN (23:41)
[2018-12-23] MEDS: PIPERACILLIN SODIUM/TAZOBACTAM 3.375 GM in NORMAL SALINE 100 ML IV SCH ×4 (00:06→17:12)
[2018-12-23] MEDS: BUPROPION HCL 100 MG TABLET PO SCH ×3 (06:42→22:13)
[2018-12-23 07:05] LABS: ABSOLUTE BASOPHILS # (AUTO) 0.1 10^3/uL (0.0-0.2); ABSOLUTE EOSINOPHILS # (AUTO) 0.1 10^3/uL (0.0-0.6); ABSOLUTE LYMPHOCYTES (AUTO) 1.7 10^3/uL (0.5-4.7); ABSOLUTE MONOCYTES (AUTO) 0.4 10^3/uL (0.1-1.4); ABSOLUTE NEUT (AUTO) 2.6 10^3/uL (1.7-8.2); BASOPHILS % (AUTO) 1.2 % (0-2); HEMATOCRIT 28.1 % (37.9-51.0); HEMOGLOBIN 9.4 g/dL (13.5-17.0); LYMPHOCYTES % (AUTO) 34.5 % (13-45); MEAN CORPUSCULAR HEMOGLOBIN 31.9 pg (27.0-33.4); MEAN CORPUSCULAR HGB CONC 33.5 g/dL (32.0-36.0); MEAN CORPUSCULAR VOLUME 95 fl (80-97); MONOCYTES % (AUTO) 8.9 % (3-13); PLATELET COUNT 293 10^3/uL (150-450); RED BLOOD COUNT 2.96 10^6/uL (4.35-5.55); RED CELL DISTRIBUTION WIDTH 14.7 % (11.5-14.0); SEGMENTED NEUTROPHILS % (AUTO) 53.4 % (42-78); TOTAL CELLS COUNTED % (AUTO) 100 %
[2018-12-23 07:21] LABS: ALANINE AMINOTRANSFERASE 56 U/L (21-72); ALBUMIN 2.2 g/dL (3.5-5.0); ALKALINE PHOSPHATASE 88 U/L (38-126); ASPARTATE AMINO TRANSFERASE 52 U/L (17-59); BILIRUBIN,DIRECT 0.4 mg/dL (0.0-0.4); BILIRUBIN,TOTAL 0.8 mg/dL (0.2-1.3); BLOOD UREA NITROGEN 5 mg/dL (7-20); CALCIUM 8.3 mg/dL (8.4-10.2); CARBON DIOXIDE 29 mmol/L (22-30); CHLORIDE 107 mmol/L (98-107); POTASSIUM 3.7 mmol/L (3.6-5.0); TOTAL PROTEIN 4.1 g/dL (6.3-8.2)
[2018-12-23 07:23] LABS: SODIUM 140.1 mmol/L (137-145)
[2018-12-23 07:38] LABS: GLUCOSE 62 mg/dL (75-110)
[2018-12-23 07:55] LABS: ANION GAP 4 (5-19)
[2018-12-23 08:22] LABS: PROTHROMBIN TIME 16.8 SEC (11.4-15.4)
[2018-12-23] MEDS: HEPARIN SODIUM,PORCINE/D5W 25,000 UNIT/250 ML RTUINJ IV PRN (08:53)
[2018-12-23] MEDS: PANTOPRAZOLE SODIUM 40 MG TABLET.DR PO SCH (08:59)
[2018-12-23] MEDS: MAGNESIUM OXIDE 400 MG TABLET PO SCH ×2 (09:07→17:12)
[2018-12-23] MEDS: DIGOXIN 0.125 MG TABLET PO SCH (09:07)
[2018-12-23] MEDS: POTASSIUM CHLORIDE 10 MEQ CAPSULE.ER PO SCH (09:07)
[2018-12-23] MEDS: MIDODRINE HCL 5 MG TABLET PO SCH ×3 (09:07→16:29)
[2018-12-23] MEDS: OXYCODONE HCL SR 10 MG TABLET PO SCH ×2 (09:08→22:13)
[2018-12-23] MEDS: VANCOMYCIN HCL 1,250 MG in DEXTROSE 5%-WATER 250 ML IV SCH ×2 (09:10→22:13)
--- NOTE | 2018-12-23 14:59 | PROGRESS NOTE E ---
Progress Note NAME: AMELIA BOB : 1950 AGE: 68Y DATE: 12/23/2018 ROOM: 333 SUBJECTIVE: The patient is currently lying in bed. He states that he feels a little better today than he did yesterday. He denies any nausea, vomiting, diarrhea. No shortness of breath, dizziness, chest pain, any fevers or chills. The patient has been afebrile. His blood pressures have been on the low side, which still persist and the patient does not voice any other concerns at this time. REVIEW OF SYSTEMS: The rest of the review of systems is negative. MEDICATIONS: Medications reviewed. OBJECTIVE: GENERAL: The patient is a 68-year-old male who is awake, alert. He is oriented to person, place, time, situation. He is verbal, conversational. Does not appear to be in any acute distress. VITAL SIGNS: Temperature is 97.7, pulse 67, respirations 18, blood pressure is 107/54, oxygen saturation 98% on room air. SKIN: Warm, dry. No rashes. Not diaphoretic. HEENT: Pupils equal, round, reactive to light and accommodation. Conjunctiva is pink. NECK: There is no evidence of JVD. CV: Heart is irregular. He has no rub. CHEST: Diminished, symmetrical, bilateral basal crackles. ABDOMEN: Obese, soft. EXTREMITIES: The patient does have 2 to 3+ bilateral lower extremity pitting edema. PSYCHIATRIC: Appropriate affect. Pleasant mood. DIAGNOSTICS: 1. Hematology obtained on 12/23/2018: WBC is 5.0, hemoglobin is 9.4, hematocrit is 28.1, platelet count is 293,000. 2. Chemistry obtained on 12/23/2018: Sodium is 140, potassium 2.7, chloride is 107, carbon dioxide 29, BUN 5, creatinine is 0.64, glucose 62, calcium is 8.3. Magnesium is 1.7. Bilirubin is 0.8, AST 52, ALT is 56, alkaline phosphatase 88, total protein 4.1, albumin 2.2. IMPRESSION AND PLAN: 1. Health care-associated pneumonia: The patient was covered with Zosyn and vancomycin, presently is covered with ceftriaxone. Repeat chest x-ray shows persistent area. The patient's sputum culture was unremarkable. Will follow. 2. Sepsis, most likely secondary to pneumonia: The patient was overall improved. 3. Persistent hypotension: Due believe the patient is adrenal insufficient. The patient has been hypoglycemic in spite of eating as well as the persistent hypotension. The patient had a STIM test back during a previous admission, which reflected the low end of the normal range; however, the patient may not have adrenal reserves for his critical illness. I have discussed this with Cardiology. Going to go ahead and cover him with SoluSpeedyCortef and see if there is some improvement in this. 4. Acute kidney injury: Resolved. 5. Hypocalcemia: Continue to monitor. 6. Acute on chronic systolic congestive heart failure: The patient's BNP is significantly elevated. He is receiving Lasix. He is fluid restricted. Will continue to diureses. Hopefully will get some pressure back as well with diuresis. 7. Pleural effusion: The patient is to have a thoracentesis today. Heparin drip in the interim. Will follow. 8. Morbid obesity with a body mass index (BMI)of 45: Encourage weight reduction at discharge. 9. Hypoalbuminemia: The patient's albumin is quite low. Of course he he is being followed by Dietary. The patient most likely will need to be supplemented albumin after his thoracentesis today as well. DISPOSITION: The patient is a FULL CODE. Pending patient symptomatology and diagnostic findings, we will reevaluate in the a.m. TIME SPENT: On this followup including assessment and plan, physical examination, patient education, review of records, specialty collaboration 35 minutes. DICTATING PHYSICIAN: EDUARD SHORT NP [id number] PHY#: [id number] ID: [id number] JOB#: [id number] ACCT: [id number] cc: >
[2018-12-23] MEDS: HYDROCORTISONE SOD SUCCINATE INJ/PF 250 MG/2 ML SDV IV SCH ×2 (15:18→17:12)
--- NOTE | 2018-12-23 16:21 | RADIOLOGY REPORT (SQ) ---
EXAM DESCRIPTION: U/S THORACENTESIS WITH IMAGING COMPLETED DATE/TIME: 12/23/2018 4:04 pm REASON FOR STUDY: bilateral pleural effusions COMPARISON: None. LIMITATIONS: None. PROCEDURE: Procedure, risks, benefit, and alternative explained to patient who then gave written con sent. The posterior left chest wall was marked using ultrasound guidance. A time-out was called for correct marking verification. Chest prepped and draped using sterile technique. Local anesthesia ac hieved using 9 ml of 1% lidocaine injection. A 6fr Safe-T- Centesis set was introduced into the left pleural space. Fluid was aspirated. The catheter was removed and the entry site was covered with s terile bandage. No immediate complications noted. Images acquired during the procedure were stored on PACS. FINDINGS: ENTRY SITE: posterior left chest. FLUID VOLUME: 720 FLUID ANALYSIS: Clear straw-colored OTHER: Fluid sent to the lab for testing. IMPRESSION: SUCCESSFUL THORACENTESIS USING ULTRASOUND GUIDANCE. COMMENT: Patient medication list reviewed: Yes- Quality ID# [id number]:Eligible professional attests to doc umenting in the medical record they obtained, updated, or reviewed the patient's current medications. TECHNICAL DOCUMENTATION: JOB ID: [id number] [email or web address]- All Rights Reserved Reading location - IP/workstation name: [email or web address]
--- NOTE | 2018-12-23 16:53 | RADIOLOGY REPORT (SQ) ---
EXAM DESCRIPTION: CHEST SINGLE VIEW COMPLETED DATE/TIME: 12/23/2018 4:05 pm REASON FOR STUDY: POST THORACENTESISBILATERAL PLEURAL EFF COMPARISON: 12/22/2018 EXAM PARAMETERS: NUMBER OF VIEWS: One view. TECHNIQUE: Single frontal radiographic view of the chest acquired. RADIATION DOSE: NA LIMITATIONS: None. FINDINGS: LUNGS AND PLEURA: Mild interval decrease in the left-sided pleural effusion. No new airsp tati consolidation. No pneumothorax. MEDIASTINUM AND HILAR STRUCTURES: Unchanged HEART AND VASCULAR STRUCTURES: Unchanged BONES: No acute findings. HARDWARE: None in the chest. OTHER: Stable appearance of the right-sided central venous catheter. IMPRESSION: Interval decrease in left-sided pleural effusion. No evidence of pneumothorax. TECHNICAL DOCUMENTATION: JOB ID: [id number] [employer]- All Rights Reserved Reading location - IP/workstation name: [email or web address]
[2018-12-23 17:11] LABS: FLUID TYPE PLEURAL
[2018-12-23 17:13] LABS: FLUID APPEARANCE CLEAR; FLUID COLOR LIGHT YELLOW; FLUID SOURCE LUNG; FLUID VISCOSITY LIQUID
--- NOTE | 2018-12-23 18:37 | RADIOLOGY REPORT (SQ) ---
EXAM DESCRIPTION: CHEST SINGLE VIEW COMPLETED DATE/TIME: 12/23/2018 6:19 pm REASON FOR STUDY: POST THORACENTESIS PLEURAL COMPARISON: Earlier same day chest radiograph EXAM PARAMETERS: NUMBER OF VIEWS: One view. TECHNIQUE: Single frontal radiographic view of the chest acquired. RADIATION DOSE: NA LIMITATIONS: None. FINDINGS: LUNGS AND PLEURA: Unchanged small left pleural effusion with associated left basilar opaci ty. Unchanged small right basilar opacity. Right costophrenic angle is sharp. No pneumothorax. MEDIASTINUM AND HILAR STRUCTURES: No masses. Contour normal. HEART AND VASCULAR STRUCTURES: Cardiac silhouette is unchanged in size. Central pulmonary vasculatur e remains prominent. BONES: No acute findings. HARDWARE: Unchanged positioning of a right-sided central venous catheter. Incompletely visualized fu david hardware of the cervical spine. OTHER: Unchanged soft tissue calcifications of the left axilla. IMPRESSION: No interval change. No pneumothorax. TECHNICAL DOCUMENTATION: JOB ID: [id number] [employer]- All Rights Reserved Reading location - IP/workstation name: [email or web address]
[2018-12-23] MEDS: GABAPENTIN 300 MG CAPSULE PO SCH (22:13)
[2018-12-24] MEDS: PIPERACILLIN SODIUM/TAZOBACTAM 3.375 GM in NORMAL SALINE 100 ML IV SCH ×4 (00:03→17:23)
[2018-12-24] MEDS: HYDROCORTISONE SOD SUCCINATE INJ/PF 250 MG/2 ML SDV IV SCH ×4 (00:03→17:10)
[2018-12-24] MEDS: BUPROPION HCL 100 MG TABLET PO SCH ×3 (05:23→21:46)
[2018-12-24 05:42] LABS: HEMATOCRIT 26.9 % (37.9-51.0); HEMOGLOBIN 9.1 g/dL (13.5-17.0); MEAN CORPUSCULAR HEMOGLOBIN 32.2 pg (27.0-33.4); MEAN CORPUSCULAR HGB CONC 33.9 g/dL (32.0-36.0); MEAN CORPUSCULAR VOLUME 95 fl (80-97); PLATELET COUNT 283 10^3/uL (150-450); RED BLOOD COUNT 2.83 10^6/uL (4.35-5.55); RED CELL DISTRIBUTION WIDTH 15.4 % (11.5-14.0)
[2018-12-24 05:59] LABS: BLOOD UREA NITROGEN 5 mg/dL (7-20); CALCIUM 8.3 mg/dL (8.4-10.2); GLUCOSE 146 mg/dL (75-110); POTASSIUM 4.4 mmol/L (3.6-5.0)
[2018-12-24 06:00] LABS: ALANINE AMINOTRANSFERASE 53 U/L (21-72); ALKALINE PHOSPHATASE 83 U/L (38-126); ASPARTATE AMINO TRANSFERASE 43 U/L (17-59); BILIRUBIN,DIRECT 0.3 mg/dL (0.0-0.4); BILIRUBIN,TOTAL 0.6 mg/dL (0.2-1.3); TOTAL PROTEIN 3.9 g/dL (6.3-8.2)
[2018-12-24 06:04] LABS: CARBON DIOXIDE 27 mmol/L (22-30); CHLORIDE 110 mmol/L (98-107)
[2018-12-24 06:05] LABS: ANION GAP 3 (5-19)
[2018-12-24] MEDS: PANTOPRAZOLE SODIUM 40 MG TABLET.DR PO SCH (07:53)
[2018-12-24] MEDS: MIDODRINE HCL 5 MG TABLET PO SCH ×3 (07:54→15:58)
[2018-12-24] MEDS: MAGNESIUM OXIDE 400 MG TABLET PO SCH ×2 (09:22→17:10)
[2018-12-24] MEDS: POTASSIUM CHLORIDE 10 MEQ CAPSULE.ER PO SCH (09:22)
[2018-12-24] MEDS: OXYCODONE HCL SR 10 MG TABLET PO SCH ×2 (09:22→21:46)
[2018-12-24] MEDS: DIGOXIN 0.125 MG TABLET PO SCH (09:23)
[2018-12-24] MEDS: VANCOMYCIN HCL 1,250 MG in DEXTROSE 5%-WATER 250 ML IV SCH ×2 (09:54→21:48)
[2018-12-24] MEDS: GUAIFENESIN 600 MG TABLET.SA PO SCH ×2 (11:02→21:46)
[2018-12-24] MEDS: APIXABAN 5 MG TABLET PO SCH ×2 (11:02→17:10)
--- NOTE | 2018-12-24 12:29 | PROGRESS NOTE E ---
Progress Note NAME: AMELIA BOB : 1950 AGE: 68Y DATE: 12/24/2018 ROOM: 333 SUBJECTIVE: The patient is lying in bed. He states he feels much better today in comparison to yesterday. He breathes better after thoracentesis and the patient's blood pressures are much improved. The patient is looking forward to working with Physical Therapy. The patient has denied any nausea, vomiting or any diarrhea. No dizziness or chest pain. He still has a strong cough and is producing a large amount of sputum. The patient has been afebrile. His blood pressures have been in good range, and the patient does not voice any other concerns at this time. REVIEW OF SYSTEMS: The rest of the review of systems is negative. MEDICATIONS: Reviewed. OBJECTIVE: GENERAL: The patient is a 68-year-old male who is awake, alert and oriented to person, place, time and situation. He is verbal and conversational. Does not appear to be in any acute distress. VITAL SIGNS: Temperature is 97.7, pulse 90, respirations 20, blood pressure is 100/77, oxygen saturation is 92% on 4 liters nasal cannula. SKIN: Warm and dry. No rash. Not diaphoretic. HEENT: Pupils equal, round, reactive to light and accommodation. Conjunctivae pink. No evidence of JVP. CVS: Heart is regular. No murmurs or rubs. CHEST: Diminished, symmetrical, unlabored. ABDOMEN: Obese, soft, nontender. EXTREMITIES: No clubbing, cyanosis or edema. PSYCHIATRIC: Appropriate affect, pleasant mood. DIAGNOSTICS: Lab values are as follows: Hematology obtained on 12/24/2018: WBCs are 3.0, hemoglobin is 9.1, hematocrit is 26.9, platelet count is 283,000. Chemistry obtained on 12/24/2018: Sodium is 140, potassium 4.4, chloride is 110, carbon dioxide 27, BUN 5, creatinine is 0.67, glucose 146, calcium is 8.3, magnesium is 1.8. Total protein is 3.9, albumin is 2.0. IMPRESSION AND PLAN: 1. HEALTHCARE-ASSOCIATED PNEUMONIA. The patient has been covered with Zosyn and vancomycin. The patient's sputum culture is unremarkable. Follow. 2. SEPSIS, MOST LIKELY SECONDARY TO #1. This is improved. 3. PLEURAL EFFUSION. The patient is status post thoracentesis. Had 750 mL drained. Will follow. 4. PERSISTENT HYPOTENSION, BELIEVED TO BE DUE TO ADRENAL INSUFFICIENCY. The patient is improved with Solu-Cortef. The patient appeared to have had a stim test during a previous admission and was at the low end of normal. Patient may just not have enough adrenal reserve to cover himself during a critical illness. I have discussed the case with Cardiology as well. 5. HYPOCALCEMIA. Continue to monitor. 6. ACUTE ON CHRONIC SYSTOLIC CONGESTIVE HEART FAILURE. BMP was elevated. He was received Lasix. He is fluid-restricted. Continue to diurese. Hopefully we can get the patient's pressures back as well with diuresis. 7. MORBID OBESITY, WITH A BMI OF 45. Encourage weight reduction. 8. HYPOALBUMINEMIA. Uncertain of the exact etiology of this. It is quite interesting. Dietary is following. DISPOSITION: The patient is a FULL CODE. Pending patient's symptomatology and diagnostic findings, will reevaluate in the a.m. Time spent on this followup, including assessment, plan, physical examination, patient education and review of records, is 25 minutes. DICTATING PHYSICIAN: EDUARD SHORT NP [id number] PHY#: [id number] ID: [id number] JOB#: [id number] ACCT: [id number] cc: >
[2018-12-24] MEDS: GABAPENTIN 300 MG CAPSULE PO SCH (21:46)
[2018-12-25] MEDS: HYDROCORTISONE SOD SUCCINATE INJ/PF 250 MG/2 ML SDV IV SCH ×5 (00:24→23:25)
[2018-12-25] MEDS: PIPERACILLIN SODIUM/TAZOBACTAM 3.375 GM in NORMAL SALINE 100 ML IV SCH ×5 (00:25→23:25)
[2018-12-25] MEDS: BUPROPION HCL 100 MG TABLET PO SCH ×3 (05:31→21:10)
[2018-12-25] MEDS: MAGNESIUM OXIDE 400 MG TABLET PO SCH ×2 (09:28→17:00)
[2018-12-25] MEDS: DIGOXIN 0.125 MG TABLET PO SCH (09:28)
[2018-12-25] MEDS: POTASSIUM CHLORIDE 10 MEQ CAPSULE.ER PO SCH (09:28)
[2018-12-25] MEDS: PANTOPRAZOLE SODIUM 40 MG TABLET.DR PO SCH (09:29)
[2018-12-25] MEDS: GUAIFENESIN 600 MG TABLET.SA PO SCH ×2 (09:29→21:10)
[2018-12-25] MEDS: APIXABAN 5 MG TABLET PO SCH ×2 (09:29→16:59)
[2018-12-25] MEDS: OXYCODONE HCL SR 10 MG TABLET PO SCH ×2 (09:29→21:10)
[2018-12-25] MEDS: VANCOMYCIN HCL 1,250 MG in DEXTROSE 5%-WATER 250 ML IV SCH ×2 (09:33→21:10)
[2018-12-25] MEDS: MIDODRINE HCL 5 MG TABLET PO SCH ×3 (09:33→15:04)
--- NOTE | 2018-12-25 11:49 | PROGRESS NOTE E ---
Progress Note NAME: AMELIA BOB : 1950 AGE: 68Y DATE: 12/25/2018 ROOM: 333 SUBJECTIVE: The patient is currently lying in bed. The patient states he feels better today than he did the day before. The patient appears to be having more weeping, though, from his third-spacing edema. The patient has denied any nausea, vomiting. No shortness of breath, dizziness, or chest pain. 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 The patient also would like to be tested for sleep apnea. His mine expert is Dr. Rincon and I am sure he will handle this on an outpatient basis. REVIEW OF SYSTEMS: Rest of review of systems negative. MEDICATIONS: Medications have been reviewed. OBJECTIVE: GENERAL: The patient is a 68-year-old male who is awake, alert. He is oriented to person, place, time, and situation. He is verbal, conversational, does not appear to be in any acute distress. VITAL SIGNS: Temperature is 97.3, pulse 66, respirations 66, respirations 12, blood pressure is 113/61, oxygen saturation is 100% on 3 L nasal cannula. SKIN: Warm and dry. No rash. He is not diaphoretic. HEENT: Pupils are reactive. Conjunctiva is pink. The patient does have JVP to the right ear. CARDIOVASCULAR SYSTEM: Heart is regular. No rub. CHEST: The patient has bilateral basal crackles. ABDOMEN: Obese, soft. Possible edema. EXTREMITIES: The patient does have 3+ bilateral lower extremity edema, evidence of anasarca, actually has weeping of the right upper extremity. PSYCHIATRIC: Appropriate affect, pleasant mood. DIAGNOSTICS: Lab values are as follows: Hematology obtained on 12/24/2018: WBCs are 3.0, hemoglobin is 9.1, hematocrit is 26.9, platelet count is 283,000. Chemistry obtained on 12/24/2018: Sodium is 140, potassium 4.4, chloride is 110, carbon dioxide 27, BUN 5, creatinine is 0.67, glucose 146, calcium is 8.3, magnesium is 1.8. AST 43, ALT is 53, Alk phos 83, total protein 3.9, albumin 2.0. IMPRESSION AND PLAN: 1. HEALTHCARE-ASSOCIATED PNEUMONIA. The patient has been covered with Zosyn, vancomycin. His sputum culture was unremarkable. Going to repeat his chest x-ray today. Hopefully, we can get a PA and lateral. 2. SEPSIS SECONDARY TO #1. Overall improved. 3. PLEURAL EFFUSION STATUS POST THORACENTESIS. Had 750 drained. Again, repeat chest x-ray today. 4. ACUTE ON CHRONIC SYSTOLIC CONGESTIVE HEART FAILURE. BNP remained elevated. The patient had been receiving Lasix, but it was stopped when he was hypotensive. Blood pressures have improved with steroids. Therefore, I am going to start him on a Lasix drip, follow chemistries. 5. HYPOALBUMINEMIA. Exactly uncertain of the etiology of this. The patient has had chronic diarrhea, it sounds like. This is quite interesting. His C. difficile was negative. The patient recently had endoscopies with Dr. Em of Gastroenterology. I will reach out to him. In the meantime, will start the patient on probiotic therapy. Dietary is following. 6. MORBID OBESITY WITH A BMI OF 45. Will encourage weight reduction. 7. HYPOCALCEMIA. Will continue to monitor. It corrects out appropriately with albumin. 8. PERSISTENT HYPERTENSION, APPEARS TO BE ADRENAL INSUFFICIENCY. The patient has responded very nicely to Solu-Cortef. Will continue this in the meantime. The patient did have a stim test during his previous admission; however, it was the low end of normal. The patient may not have enough adrenal reserves to cover him through acute illness. DISPOSITION: The patient is a FULL CODE. Pending patient's symptomatology and diagnostic findings, will re-evaluate in the a.m. Time spent on this followup including assessment, plan, physical examination, patient education, and review of records is 35 minutes. DICTATING PHYSICIAN: EDUARD SHORT NP [id number] PHY#: [id number] ID: [id number] JOB#: [id number] ACCT: [id number] cc: >
[2018-12-25] MEDS ORDERED: ALBUMIN HUMAN 12.5 GM/50 ML RTUINJ IV SCH (12:00)
[2018-12-25] MEDS: NORMAL SALINE 250 ML with FUROSEMIDE 250 MG IV PRN ×2 (13:47)
--- NOTE | 2018-12-25 13:51 | RADIOLOGY REPORT (SQ) ---
EXAM DESCRIPTION: CHEST 2 VIEWS COMPLETED DATE/TIME: 12/25/2018 1:37 pm REASON FOR STUDY: FU CHF vs PNA COMPARISON: 12/23/2018 EXAM PARAMETERS: NUMBER OF VIEWS: two views TECHNIQUE: Digital Frontal and Lateral radiographic views of the chest acquired. RADIATION DOSE: NA LIMITATIONS: none FINDINGS: LUNGS AND PLEURA: Small left pleural effusion. Improved aeration in the right lung base. Perihilar opacification on the left. This appears slightly more prominent. MEDIASTINUM AND HILAR STRUCTURES: No masses or contour abnormalities. HEART AND VASCULAR STRUCTURES: Heart normal size. No evidence for failure. BONES: No acute findings. HARDWARE: None in the chest. OTHER: No other significant finding. IMPRESSION: Improved aeration of the right lung base. Stable left pleural effusion. Increased opac ification in the inferior left perihilar region suggesting atelectasis versus pneumonia. TECHNICAL DOCUMENTATION: JOB ID: [id number] [employer]- All Rights Reserved Reading location - IP/workstation name: [email or web address]
[2018-12-25] MEDS: TAMSULOSIN HCL 0.4 MG CAP.SR.24H PO SCH (15:02)
[2018-12-25] MEDS: PHENAZOPYRIDINE HCL 200 MG TABLET PO PRN (15:44)
[2018-12-25] MEDS: ALBUMIN HUMAN 25 GM/100 ML RTUINJ IV SCH ×2 (17:04→23:28)
[2018-12-25] MEDS: LACTOBACILLUS ACIDOPHILUS 250 MG TAB PO SCH (17:06)
[2018-12-25] MEDS ORDERED: TAMSULOSIN HCL 0.4 MG CAP.SR.24H PO SCH (18:00)
[2018-12-25] MEDS: GABAPENTIN 300 MG CAPSULE PO SCH (21:10)
[2018-12-26] MEDS: PHENAZOPYRIDINE HCL 200 MG TABLET PO PRN ×2 (01:00→09:09)
[2018-12-26 04:46] LABS: HEMATOCRIT 25.8 % (37.9-51.0); HEMOGLOBIN 8.8 g/dL (13.5-17.0); MEAN CORPUSCULAR HEMOGLOBIN 32.7 pg (27.0-33.4); MEAN CORPUSCULAR HGB CONC 34.2 g/dL (32.0-36.0); MEAN CORPUSCULAR VOLUME 96 fl (80-97); PLATELET COUNT 296 10^3/uL (150-450); RED CELL DISTRIBUTION WIDTH 16.1 % (11.5-14.0); WHITE BLOOD COUNT 4.6 10^3/uL (4.0-10.5)
[2018-12-26 05:06] LABS: BLOOD UREA NITROGEN 12 mg/dL (7-20); CALCIUM 9.3 mg/dL (8.4-10.2); GLUCOSE 99 mg/dL (75-110); POTASSIUM 4.4 mmol/L (3.6-5.0)
[2018-12-26 05:11] LABS: CARBON DIOXIDE 31 mmol/L (22-30); CHLORIDE 106 mmol/L (98-107); SODIUM 140.5 mmol/L (137-145)
[2018-12-26 05:21] LABS: ANION GAP 3 (5-19)
[2018-12-26] MEDS: BUPROPION HCL 100 MG TABLET PO SCH ×3 (05:26→22:20)
[2018-12-26] MEDS: HYDROCORTISONE SOD SUCCINATE INJ/PF 250 MG/2 ML SDV IV SCH ×3 (05:26→17:18)
[2018-12-26] MEDS: ALBUMIN HUMAN 25 GM/100 ML RTUINJ IV SCH (05:26)
[2018-12-26] MEDS: PIPERACILLIN SODIUM/TAZOBACTAM 3.375 GM in NORMAL SALINE 100 ML IV SCH ×3 (05:27→17:19)
[2018-12-26] MEDS: GUAIFENESIN 600 MG TABLET.SA PO SCH ×2 (09:06→22:20)
[2018-12-26] MEDS: POTASSIUM CHLORIDE 10 MEQ CAPSULE.ER PO SCH (09:06)
[2018-12-26] MEDS: LACTOBACILLUS ACIDOPHILUS 250 MG TAB PO SCH ×2 (09:06→17:18)
[2018-12-26] MEDS: OXYCODONE HCL SR 10 MG TABLET PO SCH ×2 (09:07→22:20)
[2018-12-26] MEDS: DIGOXIN 0.125 MG TABLET PO SCH (09:08)
[2018-12-26] MEDS: APIXABAN 5 MG TABLET PO SCH ×2 (09:09→17:18)
[2018-12-26] MEDS: MAGNESIUM OXIDE 400 MG TABLET PO SCH ×2 (09:09→17:18)
[2018-12-26] MEDS: PANTOPRAZOLE SODIUM 40 MG TABLET.DR PO SCH (09:09)
[2018-12-26] MEDS: MIDODRINE HCL 5 MG TABLET PO SCH ×3 (09:09→17:16)
[2018-12-26] MEDS: VANCOMYCIN HCL 1,250 MG in DEXTROSE 5%-WATER 250 ML IV SCH (09:10)
[2018-12-26] MEDS: NORMAL SALINE 250 ML with FUROSEMIDE 250 MG IV PRN ×2 (14:18)
--- NOTE | 2018-12-26 16:40 | PDOC PROGRESS REPORT ---
Subjective Progress Note for:: 12/26/18 Subjective:: I seen patient resting in bed. He complains of difficulty of urination. This patient probably has BPH. We will cannot give him the alpha blockers because of his hypotension. He is started on Proscar. Reason For Visit: SEPSIS,AUSTIN,LLL PNA Physical Exam Vital Signs: Temp Pulse Resp BP Pulse Ox 97.9 F 78 14 127/75 H 95 12/26/18 11:42 12/26/18 14:00 12/26/18 11:42 12/26/18 11:42 12/26/18 11:42 Intake & Output 12/25/18 12/26/18 12/27/18 06:59 06:59 06:59 Intake Total 1604 1825 1032 Output Total 730 3375 1275 Balance 874 -1550 -243 Weight 151.1 kg 133.4 kg General appearance: PRESENT: no acute distress Head exam: PRESENT: atraumatic Eye exam: PRESENT: conjunctiva pink Mouth exam: PRESENT: moist Neck exam: ABSENT: carotid bruit, JVD, lymphadenopathy, thyromegaly Respiratory exam: PRESENT: clear to auscultation almaz. ABSENT: rales, rhonchi, wheezes Cardiovascular exam: PRESENT: irregular rhythm Neurological exam: PRESENT: alert, awake Results Laboratory Results: 12/26/18 04:30 12/26/18 04:30 12/26/18 12/26/18 04:30 04:30 WBC 4.6 RBC 2.70 L Hgb 8.8 L Hct 25.8 L MCV 96 MCH 32.7 MCHC 34.2 RDW 16.1 H Plt Count 296 Sodium 140.5 Potassium 4.4 Chloride 106 Carbon Dioxide 31 H Anion Gap 3 L BUN 12 Creatinine 0.88 Est GFR ( Amer) > 60 Est GFR (Non-Af Amer) > 60 Glucose 99 Calcium 9.3 Magnesium 2.0 12/10/18 12/11/18 12/12/18 14:30 04:48 04:08 Troponin I 0.038 NT-Pro-B Natriuret Pep 8520 H 7630 H 8760 H 12/13/18 12/15/18 12/21/18 04:35 05:15 04:16 Troponin I NT-Pro-B Natriuret Pep 84046 H 6410 H 48223 H 12/23/18 06:30 Troponin I NT-Pro-B Natriuret Pep 52886 H Impressions: Chest CT 12/20/18 00:00 IMPRESSION: Grossly stable appearance of the chest with small bilateral effu sions, left greater than right and associated bibasilar consolidation, likely atelectasis. Patchy additional bilateral ground-glass opacities, likely infectious/inflammatory. Coronary atherosclerosis. Hepatic steatosis. Thoracentesis Ultrasound 12/23/18 09:52 IMPRESSION: SUCCESSFUL THORACENTESIS USING ULTRASOUND GUIDANCE. Chest X-Ray 12/25/18 00:00 IMPRESSION: Improved aeration of the right lung base. Stable left pleural effusion. Increased opacification in the inferior left perihilar region suggesting atelectasis versus pneumonia. Assessment and Plan - Diagnosis (1) Persistent hypotension Is this a current diagnosis for this admission?: Yes Plan: Improving (2) Sepsis Qualifiers: Sepsis type: sepsis due to unspecified organism Qualified Code(s): A41.9 - Sepsis, unspecified organism Is this a current diagnosis for this admission?: Yes Plan: Is being treated. 12/19/2018-patient was admitted with sepsis and hypovolemic shock. Presently on IV Rocephin. Blood cultures from 12/10/2018-. Pulse oxes 98% on 3 L. Plan is to repeat the blood cultures. Patient is still persistently hypotensive. 12/20/2018-patient was treated with sepsis in association with hypovolemic shock. Latest blood cultures are negative. Blood pressure is improved today. But chest x-ray shows worsening of the pulmonary opacities. To repeat the blood cultures today. Started on IV Zosyn and IV vancomycin today. 12/21/2018-patient was treated with sepsis in association with hypovolemic shock. Because of the persistent infiltrates in the lungs started back on Zosyn and vancomycin yesterday he is afebrile. But blood pressures on the softer side. Blood cultures done from 12/20/2018 are negative so far. Blood cultures from 12/10/2018 are negative. 12/22/2018-patient was treated initially with sepsis with hypotension patient is back on IV vancomycin and Zosyn. Afebrile. Blood cultures are negative. S putum culture is pending. Plan is to continue the present management. (3) Healthcare-associated pneumonia Is this a current diagnosis for this admission?: Yes Plan: Is being treated (4) Acute kidney injury Is this a current diagnosis for this admission?: Yes Plan: Has resolved (5) Hypocalcemia Is this a current diagnosis for this admission?: Yes Plan: Probably associated with his hypoalbuminemia. I requested ionized fraction of calcium. Patient started on calcium carbonate with vitamin D. 12/19/2018-patient serum calcium is 7.7 and albumin is 1.4 corrected calcium is more than 8.5. Plan to give IV albumin today. 12/20/2018-patient's latest serum calcium is 7.7 and albumin is 1.6 today's labs are pending corrected calcium is close to 9. Plan is to continue the present management. 12/21/2018-serum calcium levels are borderline low and patient is receiving calcium supplementation. Corrected calcium is within the normal range. (6) Chronic a-fib Is this a current diagnosis for this admission?: Yes Plan: Rate controlled. (7) Pleural effusion Is this a current diagnosis for this admission?: Yes Plan: Possibly parapneumonic effusion 12/21/2018-patient has bilateral pleural effusions probably going to have thoracentesis tomorrow. This pleural effusions may be secondary to both underlying CHF and pneumonia. 12/22/2018-latest chest x-ray suggested bilateral pleural effusion is going for thoracentesis tomorrow. He is on heparin drip as as a bridge for anticoagulation. Apixaban is on hold. (8) Opiate dependence due to chronic pain Is this a current diagnosis for this admission?: Yes Plan: Management per his primary care physician. (9) Morbid obesity with BMI of 40.0-44.9, adult Is this a current diagnosis for this admission?: Yes Plan: We will advised lifestyle modification.
[2018-12-26] MEDS: TAMSULOSIN HCL 0.4 MG CAP.SR.24H PO SCH (17:18)
[2018-12-26] MEDS ORDERED: FINASTERIDE 5 MG TABLET PO ONE (18:00)
[2018-12-26] MEDS: GABAPENTIN 300 MG CAPSULE PO SCH (22:20)
[2018-12-26] MEDS ORDERED: PHENAZOPYRIDINE HCL 200 MG TABLET ONE (23:30)
[2018-12-27] MEDS: PIPERACILLIN SODIUM/TAZOBACTAM 3.375 GM in NORMAL SALINE 100 ML IV SCH ×2 (00:05→05:43)
[2018-12-27] MEDS: HYDROCORTISONE SOD SUCCINATE INJ/PF 250 MG/2 ML SDV IV SCH ×2 (00:05→05:43)
[2018-12-27] MEDS: PHENAZOPYRIDINE HCL 200 MG TABLET PO PRN ×2 (00:05→11:15)
[2018-12-27] MEDS: BUPROPION HCL 100 MG TABLET PO SCH ×3 (05:43→21:26)
[2018-12-27] MEDS: MIDODRINE HCL 5 MG TABLET PO SCH ×4 (07:49→17:44)
[2018-12-27] MEDS: PANTOPRAZOLE SODIUM 40 MG TABLET.DR PO SCH (08:24)
[2018-12-27] MEDS: LACTOBACILLUS ACIDOPHILUS 250 MG TAB PO SCH ×2 (10:58→17:40)
[2018-12-27] MEDS: FINASTERIDE 5 MG TABLET PO SCH (10:58)
[2018-12-27] MEDS: MAGNESIUM OXIDE 400 MG TABLET PO SCH ×2 (10:59→17:40)
[2018-12-27] MEDS: POTASSIUM CHLORIDE 10 MEQ CAPSULE.ER PO SCH (10:59)
[2018-12-27] MEDS: GUAIFENESIN 600 MG TABLET.SA PO SCH ×2 (10:59→21:26)
[2018-12-27] MEDS: DIGOXIN 0.125 MG TABLET PO SCH (10:59)
[2018-12-27] MEDS: APIXABAN 5 MG TABLET PO SCH ×2 (10:59→17:40)
[2018-12-27] MEDS: OXYCODONE HCL SR 10 MG TABLET PO SCH ×2 (11:00→21:25)
[2018-12-27 11:44] LABS: VANCOMYCIN,TROUGH 27.9 ug/mL (5.0-20.0)
[2018-12-27] MEDS ORDERED: HYDROCORTISONE SOD SUCCINATE INJ/PF 250 MG/2 ML SDV IV SCH (12:00)
--- NOTE | 2018-12-27 14:50 | PDOC PROGRESS REPORT ---
Subjective Progress Note for:: 12/27/18 Subjective:: I seen patient resting in bed. He is not in pain or distress. He reports that he is a urination difficulty is improving after he has been started on Proscar. His potential discharge for tomorrow if bed is available at the [facility]. Reason For Visit: SEPSIS,AUSTIN,LLL PNA Physical Exam Vital Signs: Temp Pulse Resp BP Pulse Ox 97.4 F 70 22 H 122/71 99 12/27/18 11:00 12/27/18 11:00 12/27/18 11:00 12/27/18 11:00 12/27/18 11:00 Intake & Output 12/26/18 12/27/18 12/28/18 06:59 06:59 06:59 Intake Total 1825 1805 206 Output Total 7445 2585 2150 Balance -8250 -2370 -3962 Weight 133.4 kg 143.3 kg General appearance: PRESENT: no acute distress Head exam: PRESENT: atraumatic, normocephalic Eye exam: PRESENT: conjunctiva pink Ear exam: PRESENT: bleeding Neck exam: ABSENT: carotid bruit, JVD, lymphadenopathy, thyromegaly Respiratory exam: PRESENT: clear to auscultation almaz, decreased breath sounds. ABSENT: rales, rhonchi, wheezes Cardiovascular exam: PRESENT: irregular rhythm GI/Abdominal exam: PRESENT: normal bowel sounds, soft. ABSENT: distended, guarding, mass, organolmegaly, rebound, tenderness Neurological exam: PRESENT: alert, awake, oriented to time, oriented to situation Results Laboratory Results: 12/26/18 04:30 12/27/18 10:40 12/27/18 12/27/18 10:40 10:51 Creatinine 1.08 Est GFR ( Amer) > 60 Est GFR (Non-Af Amer) > 60 Stool Occult Blood NEGATIVE 12/23/18 16:00 Pleural Fluid - Left Pleural Effusion AFB Smear Concentration - Final 12/23/18 16:00 Pleural Fluid - Left Pleural Effusion Acid Fast Bacilli Smear - Final 12/23/18 16:00 Pleural Fluid - Left Pleural Effusion Gram Stain - Final 12/23/18 16:00 Pleural Fluid - Left Pleural Effusion Body Fluid Culture - Final NO AEROBIC OR ANAEROBIC ORGANISMS RECOVERED 12/10/18 12/11/18 12/12/18 14:30 04:48 04:08 Troponin I 0.038 NT-Pro-B Natriuret Pep 8520 H 7630 H 8760 H 12/13/18 12/15/18 12/21/18 04:35 05:15 04:16 Troponin I NT-Pro-B Natriuret Pep 53425 H 6410 H 76101 H 12/23/18 06:30 Troponin I NT-Pro-B Natriuret Pep 16848 H Impressions: Chest CT 12/20/18 00:00 IMPRESSION: Grossly stable appearance of the chest with small bilateral effusions, left greater than right and associated bibasilar consolidation, likely atelectasis. Patchy additional bilateral ground-glass opacities, likely infectious/inflammatory. Coronary atherosclerosis. Hepatic steatosis. Thoracentesis Ultrasound 12/23/18 09:52 IMPRESSION: SUCCESSFUL THORACENTESIS USING ULTRASOUND GUIDANCE. Chest X-Ray 12/25/18 00:00 IMPRESSION: Improved aeration of the right lung base. Stable left pleural effusion. Increased opacification in the inferior left perihilar region sanchez ggesting atelectasis versus pneumonia. Assessment and Plan - Diagnosis (1) Persistent hypotension Is this a current diagnosis for this admission?: Yes Plan: Improving (2) Sepsis Qualifiers: Sepsis type: sepsis due to unspecified organism Qualified Code(s): A41.9 - Sepsis, unspecified organism Is this a current diagnosis for this admission?: Yes Plan: Is being treated. 12/19/2018-patient was admitted with sepsis and hypovolemic shock. Presently on IV Rocephin. Blood cultures from 12/10/2018-. Pulse oxes 98% on 3 L. Plan is to repeat the blood cultures. Patient is still persistently hypotensive. 12/20/2018-patient was treated with sepsis in association with hypovolemic shock. Latest blood cultures are negative. Blood pressure is improved today. But chest x-ray shows worsening of the pulmonary opacities. To repeat the blood cultures today. Started on IV Zosyn and IV vancomycin today. 12/21/2018-patient was treated with sepsis in association with hypovolemic shock. Because of the persistent infiltrates in the lungs started back on Zosyn and vancomycin yesterday he is afebrile. But blood pressures on the softer side. Blood cultures done from 12/20/2018 are negative so far. Blood cultures from 12/10/2018 are negative. 12/22/2018-patient was treated initially with sepsis with hypotension patient is back on IV vancomycin and Zosyn. Afebrile. Blood cultures are negative. Sputum culture is pending. Plan is to continue the present management. (3) Healthcare-associated pneumonia Is this a current diagnosis for this admission?: Yes Plan: Is being treated (4) Acute kidney injury Is this a current diagnosis for this admission?: Yes Plan: Has resolved (5) Hypocalcemia Is this a current diagnosis for this admission?: Yes Plan: Probably associated with his hypoalbuminemia. I requested ionized fraction of calcium. Patient started on calcium carbonate with vitamin D. 12/19/2018-patient serum calcium is 7.7 and albumin is 1.4 corrected calcium is more than 8.5. Plan to give IV albumin today. 12/20/2018-patient's latest serum calcium is 7.7 and albumin is 1.6 today's labs are pending corrected calcium is close to 9. Plan is to continue the present management. 12/21/2018-serum calcium levels are borderline low and patient is receiving calcium supplementation. Corrected calcium is within the normal range. (6) Chronic a-fib Is this a current diagnosis for this admission?: Yes Plan: Rate controlled. (7) Pleural effusion Is this a current diagnosis for this admission?: Yes Plan: Possibly parapneumonic effusion 12/21/2018-patient has bilateral pleural effusions probably going to have thoracentesis tomorrow. This pleural effusions may be secondary to both underlying CHF and pneumonia. 12/22/2018-latest chest x-ray suggested bilateral pleural effusion is going for thoracentesis tomorrow. He is on heparin drip as as a bridge for anticoagulation. Apixaban is on hold. (8) Opiate dependence due to chronic pain Is this a current diagnosis for this admission?: Yes Plan: Management per his primary care physician. (9) Morbid obesity with BMI of 40.0-44.9, adult Is this a current diagnosis for this admission?: Yes Plan: We will advised lifestyle modification.
[2018-12-27] MEDS: PHARMACY COMMUNICATION ORDER MC SCH (17:37)
[2018-12-27] MEDS: TAMSULOSIN HCL 0.4 MG CAP.SR.24H PO SCH (17:40)
[2018-12-27] MEDS: HYDROCORTISONE SOD SUCCINATE INJ/PF 100 MG/2 ML SDV IV SCH (17:41)
[2018-12-27] MEDS: GABAPENTIN 300 MG CAPSULE PO SCH (21:25)
[2018-12-28] MEDS: HYDROCORTISONE SOD SUCCINATE INJ/PF 100 MG/2 ML SDV IV SCH ×4 (00:45→18:02)
[2018-12-28] MEDS: BUPROPION HCL 100 MG TABLET PO SCH ×3 (05:11→21:05)
[2018-12-28] MEDS: MIDODRINE HCL 5 MG TABLET PO SCH ×3 (08:07→18:02)
[2018-12-28] MEDS: PANTOPRAZOLE SODIUM 40 MG TABLET.DR PO SCH (08:07)
[2018-12-28] MEDS: POTASSIUM CHLORIDE 10 MEQ CAPSULE.ER PO SCH (10:11)
[2018-12-28] MEDS: APIXABAN 5 MG TABLET PO SCH ×2 (10:12→18:02)
[2018-12-28] MEDS: LACTOBACILLUS ACIDOPHILUS 250 MG TAB PO SCH ×2 (10:12→18:02)
[2018-12-28] MEDS: FINASTERIDE 5 MG TABLET PO SCH (10:12)
[2018-12-28] MEDS: OXYCODONE HCL SR 10 MG TABLET PO SCH ×2 (10:12→21:05)
[2018-12-28] MEDS: MAGNESIUM OXIDE 400 MG TABLET PO SCH ×2 (10:12→18:02)
[2018-12-28] MEDS: GUAIFENESIN 600 MG TABLET.SA PO SCH ×2 (10:12→21:05)
[2018-12-28] MEDS: DIGOXIN 0.125 MG TABLET PO SCH (10:13)
--- NOTE | 2018-12-28 15:12 | PDOC PROGRESS REPORT ---
Subjective Progress Note for:: 12/28/18 Subjective:: No significant change overnight. Patient reports this he is urinating without difficulty. Patient has been awaiting placement. Reason For Visit: SEPSIS,AUSTIN,LLL PNA Physical Exam Vital Signs: Temp Pulse Resp BP Pulse Ox 98.2 F 82 18 124/71 96 12/28/18 09:27 12/28/18 14:00 12/28/18 09:27 12/28/18 09:27 12/28/18 09:27 Intake & Output 12/27/18 12/28/18 12/29/18 06:59 06:59 06:59 Intake Total 1805 1366 Output Total 4275 3800 Balance -6720 -2434 Weight 143.3 kg 138.9 kg General appearance: PRESENT: no acute distress Mouth exam: PRESENT: moist, tongue midline Teeth exam: PRESENT: edentulous Respiratory exam: PRESENT: decreased breath sounds Cardiovascular exam: PRESENT: irregular rhythm Neurological exam: PRESENT: alert, awake Results Laboratory Results: 12/26/18 04:30 12/27/18 10:40 12/10/18 12/11/18 12/12/18 14:30 04:48 04:08 Troponin I 0.038 NT-Pro-B Natriuret Pep 8520 H 7630 H 8760 H 12/13/18 12/15/18 12/21/18 04:35 05:15 04:16 Troponin I NT-Pro-B Natriuret Pep 71219 H 6410 H 56905 H 12/23/18 06:30 Troponin I NT-Pro-B Natriuret Pep 92973 H Impressions: Chest CT 12/20/18 00:00 IMPRESSION: Grossly stable appearance of the chest with small bilateral effusions, left greater than right and associated bibasilar consolidation, likely atelectasis. Patchy additional bilateral ground-glass opacities, likely infectious/inflammatory. Coronary atherosclerosis. Hepatic steatosis. Thoracentesis Ultrasound 12/23/18 09:52 IMPRESSION: SUCCESSFUL THORACENTESIS USING ULTRASOUND GUIDANCE. Chest X-Ray 12/25/18 00:00 IMPRESSION: Improved aeration of the right lung base. Stable left pleural effusion. Increased opacification in the inferior left perihilar region suggesting atelectasis versus pneumonia. Assessment and Plan - Diagnosis (1) Persistent hypotension Is this a current diagnosis for this admission?: Yes Plan: Blood pressure is stable. (2) Sepsis Qualifiers: Sepsis type: sepsis due to unspecified organism Qualified Code(s): A41.9 - Sepsis, unspecified organism Is this a current diagnosis for this admission?: Yes Plan: Is being treated. 12/19/2018-patient was admitted with sepsis and hypovolemic shock. Presently on IV Rocephin. Blood cultures from 12/10/2018-. Pulse oxes 98% on 3 L. Plan is to repeat the blood cultures. Patient is still persistently hypotensive. 12/20/2018-patient was treated with sepsis in association with hypovolemic shock. Latest blood cultures are negative. Blood pressure is improved today. But chest x-ray shows worsening of the pulmonary opacities. To repeat the blood cultures today. Started on IV Zosyn and IV vancomycin today. 12/21/2018-patient was treated with sepsis in association with hypovolemic shock. Because of the persistent infiltrates in the lungs started back on Zosyn and vancomycin yesterday he is afebrile. But blood pressures on the softer side. Blood cultures done from 12/20/2018 are negative so far. Blood cultures from 12/10/2018 are negative. 12/22/2018-patient was treated initially with sepsis with hypotension patient is back on IV vancomycin and Zosyn. Afebrile. Blood cultures are negative. Sputum culture is pending. Plan is to continue the present management. (3) Healthcare-associated pneumonia Is this a current diagnosis for this admission?: Yes Plan: Is being treated (4) Acute kidney injury Is this a current diagnosis for this admission?: Yes Plan: Has resolved (5) Hypocalcemia Is this a current diagnosis for this admission?: Yes Plan: Probably associated with his hypoalbuminemia. I requested ionized fraction of calcium. Patient started on calcium carbonate with vitamin D. 12/19/2018-patient serum calcium is 7.7 and albumin is 1.4 corrected calcium is more than 8.5. Plan to give IV albumin today. 12/20/2018-patient's latest serum calcium is 7.7 and albumin is 1.6 today's labs are pending corrected calcium is close to 9. Plan is to continue the present management. 12/21/2018-serum calcium levels are borderline low and patient is receiving calcium supplementation. Corrected calcium is within the normal range. (6) Chronic a-fib Is this a current diagnosis for this admission?: Yes Plan: Rate controlled. (7) Pleural effusion Is this a current diagnosis for this admission?: Yes Plan: Possibly parapneumonic effusion 12/21/2018-patient has bilateral pleural effusions probably going to have thoracentesis tomorrow. This pleural effusions may be secondary to both underlying CHF and pneumonia. 12/22/2018-latest chest x-ray suggested bilateral pleural effusion is going for thoracentesis tomorrow. He is on heparin drip as as a bridge for anticoagulation. Apixaban is on hold. (8) Opiate dependence due to chronic pain Is this a current diagnosis for this admission?: Yes Plan: Management per his primary care physician. (9) Morbid obesity with BMI of 40.0-44.9, adult Is this a current diagnosis for this admission?: Yes Plan: We will advised lifestyle modification.
[2018-12-28] MEDS: TAMSULOSIN HCL 0.4 MG CAP.SR.24H PO SCH (18:02)
[2018-12-28] MEDS: PHARMACY COMMUNICATION ORDER MC SCH (18:06)
[2018-12-28] MEDS: GABAPENTIN 300 MG CAPSULE PO SCH (21:05)
[2018-12-29] MEDS: BUPROPION HCL 100 MG TABLET PO SCH ×3 (05:05→21:42)
[2018-12-29] MEDS: DIGOXIN 0.125 MG TABLET PO SCH (09:30)
[2018-12-29] MEDS: MAGNESIUM OXIDE 400 MG TABLET PO SCH ×2 (09:30→18:03)
[2018-12-29] MEDS: APIXABAN 5 MG TABLET PO SCH ×2 (09:31→18:02)
[2018-12-29] MEDS: GUAIFENESIN 600 MG TABLET.SA PO SCH ×2 (09:31→21:42)
[2018-12-29] MEDS: LACTOBACILLUS ACIDOPHILUS 250 MG TAB PO SCH ×2 (09:31→18:02)
[2018-12-29] MEDS: FINASTERIDE 5 MG TABLET PO SCH (09:31)
[2018-12-29] MEDS: OXYCODONE HCL SR 10 MG TABLET PO SCH ×2 (09:31→22:00)
[2018-12-29] MEDS: PANTOPRAZOLE SODIUM 40 MG TABLET.DR PO SCH (09:31)
[2018-12-29] MEDS: POTASSIUM CHLORIDE 10 MEQ CAPSULE.ER PO SCH (09:31)
[2018-12-29] MEDS: MIDODRINE HCL 5 MG TABLET PO SCH ×3 (09:35→18:02)
[2018-12-29] MEDS: HYDROCORTISONE SOD SUCCINATE INJ/PF 100 MG/2 ML SDV IV SCH ×2 (09:40→18:04)
--- NOTE | 2018-12-29 16:11 | PDOC PROGRESS REPORT ---
Subjective Progress Note for:: 12/29/18 Subjective:: No new complaint. No significant change overnight. Reason For Visit: SEPSIS,AUSTIN,LLL PNA Physical Exam Vital Signs: Temp Pulse Resp BP Pulse Ox 97.5 F 78 16 111/76 98 12/29/18 11:40 12/29/18 11:40 12/29/18 11:40 12/29/18 11:40 12/29/18 11:40 Intake & Output 12/28/18 12/29/18 12/30/18 06:59 06:59 06:59 Intake Total 1366 1122 355 Output Total 3800 1950 150 Balance -7084 -828 205 Weight 138.9 kg 140.2 kg General appearance: PRESENT: no acute distress Head exam: PRESENT: atraumatic Eye exam: PRESENT: conjunctiva pink Mouth exam: PRESENT: moist Neck exam: ABSENT: carotid bruit, JVD, lymphadenopathy, thyromegaly Respiratory exam: PRESENT: decreased breath sounds Cardiovascular exam: PRESENT: irregular rhythm Neurological exam: PRESENT: alert, awake, oriented to time, oriented to situation Results Laboratory Results: 12/26/18 04:30 12/27/18 10:40 12/23/18 16:00 Pleural Fluid - Left Pleural Effusion Fungal Smear - Final 12/23/18 16:00 Pleural Fluid - Left Pleural Effusion Fungal Smear - Final 12/10/18 12/11/18 12/12/18 14:30 04:48 04:08 Troponin I 0.038 NT-Pro-B Natriuret Pep 8520 H 7630 H 8760 H 12/13/18 12/15/18 12/21/18 04:35 05:15 04:16 Troponin I NT-Pro-B Natriuret Pep 82564 H 6410 H 52423 H 12/23/18 06:30 Troponin I NT-Pro-B Natriuret Pep 51235 H Impressions: Chest CT 12/20/18 00:00 IMPRESSION: Grossly stable appearance of the chest with small bilateral effusions, left greater than right and associated bibasilar consolidation, likely atelectasis. Patchy additional bilateral ground-glass opacities, likely infectious/inflammatory. Coronary atherosclerosis. Hepatic steatosis. Thoracentesis Ultrasound 12/23/18 09:52 IMPRESSION: SUCCESSFUL THORACENTESIS USING ULTRASOUND GUIDANCE. Chest X-Ray 12/25/18 00:00 IMPRESSION: Improved aeration of the right lung base. Stable left pleural effusion. Increased opacification in the inferior left perihilar region suggesting atelectasis versus pneumonia. Assessment and Plan - Diagnosis (1) Persistent hypotension Is this a current diagnosis for this admission?: Yes Plan: Blood pressure is stable. (2) Sepsis Qualifiers: Sepsis type: sepsis due to unspecified organism Qualified Code(s): A41.9 - Sepsis, unspecified organism Is this a current diagnosis for this admission?: Yes Plan: Is being treated. 12/19/2018-patient was admitted with sepsis and hypovolemic shock. Presently on IV Rocephin. Blood cultures from 12/10/2018-. Pulse oxes 98% on 3 L. Plan is to repeat the blood cultures. Patient is still persistently hypotensive. 12/20/2018-patient was treated with sepsis in association with hypovolemic shock. Latest blood cultures are negative. Blood pressure is improved today. But chest x-ray shows worsening of the pulmonary opacities. To repeat the blood cultures today. Started on IV Zosyn and IV vancomycin today. 12/21/2018-patient was treated with sepsis in association with hypovolemic shock. Because of the persistent infiltrates in the lungs started back on Zosyn and vancomycin yesterday he is afebrile. But blood pressures on the softer side. Blood cultures done from 12/20/2018 are negative so far. Blood cultures from 12/10/2018 are negative. 12/22/2018-patient was treated initially with sepsis with hypotension patient is back on IV vancomycin and Zosyn. Afebrile. Blood cultures are negative. Sputum culture is pending. Plan is to continue the present management. (3) Healthcare-associated pneumonia Is this a current diagnosis for this admission?: Yes Plan: Is being treated (4) Acute kidney injury Is this a current diagnosis for this admission?: Yes Plan: Has resolved (5) Hypocalcemia Is this a current diagnosis for this admission?: Yes Plan: Probably associated with his hypoalbuminemia. I requested ionized fraction of calcium. Patient started on calcium carbonate with vitamin D. 12/19/2018-patient serum calcium is 7.7 and albumin is 1.4 corrected calcium is more than 8.5. Plan to give IV albumin today. 12/20/2018-patient's latest serum calcium is 7.7 and albumin is 1.6 today's labs are pending corrected calcium is close to 9. Plan is to continue the present management. 12/21/2018-serum calcium levels are borderline low and patient is receiving calcium supplementation. Corrected calcium is within the normal range. (6) Chronic a-fib Is this a current diagnosis for this admission?: Yes Plan: Rate controlled. (7) Pleural effusion Is this a current diagnosis for this admission?: Yes Plan: Possibly parapneumonic effusion 12/21/2018-patient has bilateral pleural effusions probably going to have thoracentesis tomorrow. This pleural effusions may be secondary to both underlying CHF and pneumonia. 12/22/2018-latest chest x-ray suggested bilateral pleural effusion is going for thoracentesis tomorrow. He is on heparin drip as as a bridge for anticoagulation. Apixaban is on hold. (8) Opiate dependence due to chronic pain Is this a current diagnosis for this admission?: Yes Plan: Management per his primary care physician. (9) Morbid obesity with BMI of 40.0-44.9, adult Is this a current diagnosis for this admission?: Yes Plan: We will advised lifestyle modification.
[2018-12-29] MEDS: TAMSULOSIN HCL 0.4 MG CAP.SR.24H PO SCH (18:02)
[2018-12-29] MEDS: GABAPENTIN 300 MG CAPSULE PO SCH (21:42)
[2018-12-30] MEDS: BUPROPION HCL 100 MG TABLET PO SCH ×3 (06:44→21:57)
[2018-12-30] MEDS: GUAIFENESIN 600 MG TABLET.SA PO SCH ×2 (10:15→21:57)
[2018-12-30] MEDS: MAGNESIUM OXIDE 400 MG TABLET PO SCH ×2 (10:16→17:41)
[2018-12-30] MEDS: OXYCODONE HCL SR 10 MG TABLET PO SCH ×2 (10:16→21:55)
[2018-12-30] MEDS: LACTOBACILLUS ACIDOPHILUS 250 MG TAB PO SCH ×2 (10:16→17:41)
[2018-12-30] MEDS: FINASTERIDE 5 MG TABLET PO SCH (10:16)
[2018-12-30] MEDS: POTASSIUM CHLORIDE 10 MEQ CAPSULE.ER PO SCH (10:16)
[2018-12-30] MEDS: DIGOXIN 0.125 MG TABLET PO SCH (10:17)
[2018-12-30] MEDS: PANTOPRAZOLE SODIUM 40 MG TABLET.DR PO SCH (10:17)
[2018-12-30] MEDS: HYDROCORTISONE SOD SUCCINATE INJ/PF 100 MG/2 ML SDV IV SCH ×2 (10:17→17:40)
[2018-12-30] MEDS: APIXABAN 5 MG TABLET PO SCH ×2 (10:17→17:41)
[2018-12-30] MEDS: MIDODRINE HCL 5 MG TABLET PO SCH ×3 (10:18→17:41)
[2018-12-30] MEDS ORDERED: FLUDROCORTISONE ACETATE 0.1 MG TABLET PO ONE (11:30)
[2018-12-30] MEDS ORDERED: NORMAL SALINE 1000 ML 1,000 ML IV PRN (14:25)
--- NOTE | 2018-12-30 14:25 | PDOC PROGRESS REPORT ---
Subjective Progress Note for:: 12/30/18 Subjective:: Patient seen resting in bed comfortably. She is awake alert oriented. His blood pressure drops again. I have been tapering his Solu-Cortef to 50 mg 3 times a day. I did for him fludrocortisone. Reason For Visit: SEPSIS,AUSTIN,LLL PNA Physical Exam Vital Signs: Temp Pulse Resp BP Pulse Ox 97.5 F 79 16 110/96 H 100 12/30/18 11:36 12/30/18 11:36 12/30/18 11:36 12/30/18 11:36 12/30/18 11:36 Intake & Output 12/29/18 12/30/18 12/31/18 06:59 06:59 06:59 Intake Total 1122 932 355 Output Total 1950 500 100 Balance -828 432 255 Weight 140.2 kg General appearance: PRESENT: no acute distress Mouth exam: PRESENT: moist Respiratory exam: PRESENT: decreased breath sounds Cardiovascular exam: PRESENT: irregular rhythm GI/Abdominal exam: PRESENT: normal bowel sounds, soft. ABSENT: distended, guarding, mass, organolmegaly, rebound, tenderness Neurological exam: PRESENT: alert, awake, oriented to time, oriented to situation Results Laboratory Results: 12/26/18 04:30 12/27/18 10:40 12/30/18 10:10 Stool Occult Blood NEGATIVE 12/23/18 16:00 Pleural Fluid - Left Pleural Effusion Fungal Smear - Final 12/23/18 16:00 Pleural Fluid - Left Pleural Effusion Fungal Smear - Final 12/10/18 12/11/18 12/12/18 14:30 04:48 04:08 Troponin I 0.038 NT-Pro-B Natriuret Pep 8520 H 7630 H 8760 H 12/13/18 12/15/18 12/21/18 04:35 05:15 04:16 Troponin I NT-Pro-B Natriuret Pep 24788 H 6410 H 09944 H 12/23/18 06:30 Troponin I NT-Pro-B Natriuret Pep 14650 H Impressions: Chest CT 12/20/18 00:00 IMPRESSION: Grossly stable appearance of the chest with small bilateral effusions, left greater than right and associated bibasilar consolidation, likely atelectasis. Patchy additional bilateral ground-glass opacities, likely infectious/inflammatory. Coronary atherosclerosis. Hepatic steatosis. Thoracentesis Ultrasound 12/23/18 09:52 IMPRESSION: SUCCESSFUL THORACENTESIS USING ULTRASOUND GUIDANCE. Chest X-Ray 12/25/18 00:00 IMPRESSION: Improved aeration of the right lung base. Stable left pleural effusion. Increased opacification in the inferior left perihilar region suggesting atelectasis versus pneumonia. Assessment and Plan - Diagnosis (1) Persistent hypotension Is this a current diagnosis for this admission?: Yes Plan: Patient again started to drop his blood pressure. Added fludrocortisone on top of the midodrine. I will start him on normal s juana at rate of 100 mm/h. (2) Sepsis Qualifiers: Sepsis type: sepsis due to unspecified organism Qualified Code(s): A41.9 - Sepsis, unspecified organism Is this a current diagnosis for this admission?: Yes Plan: Is being treated. 12/19/2018-patient was admitted with sepsis and hypovolemic shock. Presently on IV Rocephin. Blood cultures from 12/10/2018-. Pulse oxes 98% on 3 L. Plan is to repeat the blood cultures. Patient is still persistently hypotensive. 12/20/2018-patient was treated with sepsis in association with hypovolemic shock. Latest blood cultures are negative. Blood pressure is improved today. But chest x-ray shows worsening of the pulmonary opacities. To repeat the blood cultures today. Started on IV Zosyn and IV vancomycin today. 12/21/2018-patient was treated with sepsis in association with hypovolemic shock. Because of the persistent infiltrates in the lungs started back on Zosyn and vancomycin yesterday he is afebrile. But blood pressures on the softer side. Blood cultures done from 12/20/2018 are negative so far. Blood cultures from 12/10/2018 are negative. 12/22/2018-patient was treated initially with sepsis with hypotension patient is back on IV vancomycin and Zosyn. Afebrile. Blood cultures are negative. Sputum culture is pending. Plan is to continue the present management. (3) Healthcare-associated pneumonia Is this a current diagnosis for this admission?: Yes Plan: Is being treated (4) Acute kidney injury Is this a current diagnosis for this admission?: Yes Plan: Has resolved (5) Hypocalcemia Is this a current diagnosis for this admission?: Yes Plan: Probably associated with his hypoalbuminemia. I requested ionized fraction of calcium. Patient started on calcium carbonate with vitamin D. 12/19/2018-patient serum calcium is 7.7 and albumin is 1.4 corrected calcium is more than 8.5. Plan to give IV albumin today. 12/20/2018-patient's latest serum calcium is 7.7 and albumin is 1.6 today's labs are pending corrected calcium is close to 9. Plan is to continue the present management. 12/21/2018-serum calcium levels are borderline low and patient is receiving calcium supplementation. Corrected calcium is within the normal range. (6) Chronic a-fib Is this a current diagnosis for this admission?: Yes Plan: Rate controlled. (7) Pleural effusion Is this a current diagnosis for this admission?: Yes Plan: Possibly parapneumonic effusion 12/21/2018-patient has bilateral pleural effusions probably going to have thoracentesis tomorrow. This pleural effusions may be secondary to both underlying CHF and pneumonia. 12/22/2018-latest chest x-ray suggested bilateral pleural effusion is going for thoracentesis tomorrow. He is on heparin drip as as a bridge for antic oagulation. Apixaban is on hold. (8) Opiate dependence due to chronic pain Is this a current diagnosis for this admission?: Yes Plan: Management per his primary care physician. (9) Morbid obesity with BMI of 40.0-44.9, adult Is this a current diagnosis for this admission?: Yes Plan: We will advised lifestyle modification.
[2018-12-30] MEDS: TAMSULOSIN HCL 0.4 MG CAP.SR.24H PO SCH (17:41)
[2018-12-30] MEDS: GABAPENTIN 300 MG CAPSULE PO SCH (21:57)
[2018-12-31] MEDS: BUPROPION HCL 100 MG TABLET PO SCH ×3 (05:19→21:15)
[2018-12-31] MEDS: PANTOPRAZOLE SODIUM 40 MG TABLET.DR PO SCH (08:58)
[2018-12-31] MEDS: MIDODRINE HCL 5 MG TABLET PO SCH ×3 (08:59→16:12)
[2018-12-31] MEDS: LACTOBACILLUS ACIDOPHILUS 250 MG TAB PO SCH ×2 (09:01→17:01)
[2018-12-31] MEDS: MAGNESIUM OXIDE 400 MG TABLET PO SCH ×2 (09:03→17:01)
[2018-12-31] MEDS: APIXABAN 5 MG TABLET PO SCH ×2 (09:03→17:01)
[2018-12-31] MEDS: DIGOXIN 0.125 MG TABLET PO SCH (09:03)
[2018-12-31] MEDS: FINASTERIDE 5 MG TABLET PO SCH (09:03)
[2018-12-31] MEDS: GUAIFENESIN 600 MG TABLET.SA PO SCH ×2 (09:03→21:15)
[2018-12-31] MEDS: OXYCODONE HCL SR 10 MG TABLET PO SCH ×2 (09:03→21:16)
[2018-12-31] MEDS: POTASSIUM CHLORIDE 10 MEQ CAPSULE.ER PO SCH (09:03)
[2018-12-31] MEDS: FLUDROCORTISONE ACETATE 0.1 MG TABLET PO SCH (09:05)
[2018-12-31] MEDS: HYDROCORTISONE SOD SUCCINATE INJ/PF 100 MG/2 ML SDV IV SCH (09:06)
--- NOTE | 2018-12-31 15:23 | PDOC PROGRESS REPORT ---
Subjective Progress Note for:: 12/31/18 Subjective:: No new complaint. His blood pressure started to order picker. I titrate his Solu- Cortef from 50 mg twice daily to 50 mg once a day. I did fludrocortisone for him. Patient's potential discharge for tomorrow if bed is available. Reason For Visit: SEPSIS,AUSTIN,LLL PNA Physical Exam Vital Signs: Temp Pulse Resp BP Pulse Ox 98.1 F 72 14 153/85 H 99 12/31/18 12:26 12/31/18 12:26 12/31/18 12:26 12/31/18 12:26 12/31/18 12:26 Intake & Output 12/30/18 12/31/18 01/01/19 06:59 06:59 06:59 Intake Total 932 742 470 Output Total 500 950 125 Balance 432 -208 345 Weight 145.3 kg General appearance: PRESENT: no acute distress Head exam: PRESENT: atraumatic Eye exam: PRESENT: conjunctiva pink Mouth exam: PRESENT: moist Neck exam: ABSENT: carotid bruit, JVD, lymphadenopathy, thyromegaly Respiratory exam: PRESENT: clear to auscultation almaz. ABSENT: rales, rhonchi, wheezes Cardiovascular exam: PRESENT: RRR. ABSENT: diastolic murmur, rubs, systolic murmur Neurological exam: PRESENT: alert, awake, oriented to time, oriented to situation Results Laboratory Results: 12/26/18 04:30 12/27/18 10:40 12/10/18 12/11/18 12/12/18 14:30 04:48 04:08 Troponin I 0.038 NT-Pro-B Natriuret Pep 8520 H 7630 H 8760 H 12/13/18 12/15/18 12/21/18 04:35 05:15 04:16 Troponin I NT-Pro-B Natriuret Pep 92954 H 6410 H 42710 H 12/23/18 06:30 Troponin I NT-Pro-B Natriuret Pep 73823 H Impressions: Chest CT 12/20/18 00:00 IMPRESSION: Grossly stable appearance of the chest with small bilateral effusions, left greater than right and associated bibasilar consolidation, likely atelectasis. Patchy additional bilateral ground-glass opacities, likely infectious/inflammatory. Coronary atherosclerosis. Hepatic steatosis. Thoracentesis Ultrasound 12/23/18 09:52 IMPRESSION: SUCCESSFUL THORACENTESIS USING ULTRASOUND GUIDANCE. Chest X-Ray 12/25/18 00:00 IMPRESSION: Improved aeration of the right lung base. Stable left pleural effusion. Increased opacification in the inferior left perihilar region suggesting atelectasis versus pneumonia. Assessment and Plan - Diagnosis (1) Persistent hypotension Is this a current diagnosis for this admission?: Yes Plan: Improving (2) Sepsis Qualifiers: Sepsis type: sepsis due to unspecified organism Qualified Code(s): A41.9 - Sepsis, unspecified organism Is this a current diagnosis for this admission?: Yes Plan: Is being treated. 12/19/2018-patient was admitted with sepsis and hypovolemic shock. Presently on IV Rocephin. Blood cultures from 12/10/2018-. Pulse oxes 98% on 3 L. Plan is to repeat the blood cultures. Patient is still persistently hypotensive. 12/20/2018-patient was treated with sepsis in association with hypovolemic shock. Latest blood cultures are negative. Blood pressure is improved today. But chest x-ray shows worsening of the pulmonary opacities. To repeat the blood cu ltures today. Started on IV Zosyn and IV vancomycin today. 12/21/2018-patient was treated with sepsis in association with hypovolemic shock. Because of the persistent infiltrates in the lungs started back on Zosyn and vancomycin yesterday he is afebrile. But blood pressures on the softer side. Blood cultures done from 12/20/2018 are negative so far. Blood cultures from 12/10/2018 are negative. 12/22/2018-patient was treated initially with sepsis with hypotension patient is back on IV vancomycin and Zosyn. Afebrile. Blood cultures are negative. Sputum culture is pending. Plan is to continue the present management. (3) Healthcare-associated pneumonia Is this a current diagnosis for this admission?: Yes Plan: Is being treated (4) Acute kidney injury Is this a current diagnosis for this admission?: Yes Plan: Has resolved (5) Hypocalcemia Is this a current diagnosis for this admission?: Yes Plan: Probably associated with his hypoalbuminemia. I requested ionized fraction of calcium. Patient started on calcium carbonate with vitamin D. 12/19/2018-patient serum calcium is 7.7 and albumin is 1.4 corrected calcium is more than 8.5. Plan to give IV albumin today. 12/20/2018-patient's latest serum calcium is 7.7 and albumin is 1.6 today's labs are pending corrected calcium is close to 9. Plan is to continue the present management. 12/21/2018-serum calcium levels are borderline low and patient is receiving calcium supplementation. Corrected calcium is within the normal range. (6) Chronic a-fib Is this a current diagnosis for this admission?: Yes Plan: Rate controlled. (7) Pleural effusion Is this a current diagnosis for this admission?: Yes Plan: Possibly parapneumonic effusion 12/21/2018-patient has bilateral pleural effusions probably going to have thoracentesis tomorrow. This pleural effusions may be secondary to both underlying CHF and pneumonia. 12/22/2018-latest chest x-ray suggested bilateral pleural effusion is going for thoracentesis tomorrow. He is on heparin drip as as a bridge for anticoagulation. Apixaban is on hold. (8) Opiate dependence due to chronic pain Is this a current diagnosis for this admission?: Yes Plan: Management per his primary care physician. (9) Morbid obesity with BMI of 40.0-44.9, adult Is this a current diagnosis for this admission?: Yes Plan: We will advised lifestyle modification.
[2018-12-31] MEDS: TAMSULOSIN HCL 0.4 MG CAP.SR.24H PO SCH (17:01)
[2018-12-31] MEDS: GABAPENTIN 300 MG CAPSULE PO SCH (21:15)
[2019-01-01] MEDS: BUPROPION HCL 100 MG TABLET PO SCH ×3 (05:18→21:46)
[2019-01-01] MEDS: MIDODRINE HCL 5 MG TABLET PO SCH ×3 (08:03→18:16)
[2019-01-01] MEDS: PANTOPRAZOLE SODIUM 40 MG TABLET.DR PO SCH (08:08)
[2019-01-01] MEDS: OXYCODONE HCL SR 10 MG TABLET PO SCH ×2 (10:08→21:46)
[2019-01-01] MEDS: LACTOBACILLUS ACIDOPHILUS 250 MG TAB PO SCH ×2 (10:08→18:17)
[2019-01-01] MEDS: GUAIFENESIN 600 MG TABLET.SA PO SCH (10:08)
[2019-01-01] MEDS: FLUDROCORTISONE ACETATE 0.1 MG TABLET PO SCH (10:09)
[2019-01-01] MEDS: DIGOXIN 0.125 MG TABLET PO SCH (10:09)
[2019-01-01] MEDS: MAGNESIUM OXIDE 400 MG TABLET PO SCH ×2 (10:09→18:17)
[2019-01-01] MEDS: FINASTERIDE 5 MG TABLET PO SCH (10:09)
[2019-01-01] MEDS: APIXABAN 5 MG TABLET PO SCH ×2 (10:09→18:17)
[2019-01-01] MEDS: HYDROCORTISONE SOD SUCCINATE INJ/PF 100 MG/2 ML SDV IV SCH (10:10)
[2019-01-01 11:26] LABS: BLOOD UREA NITROGEN 20 mg/dL (7-20); CALCIUM 8.7 mg/dL (8.4-10.2); CHLORIDE 97 mmol/L (98-107); GLUCOSE 83 mg/dL (75-110); POTASSIUM 4.4 mmol/L (3.6-5.0)
[2019-01-01 11:44] LABS: SODIUM 136.8 mmol/L (137-145)
[2019-01-01 11:54] LABS: ANION GAP 0 (5-19)
[2019-01-01 11:58] LABS: CARBON DIOXIDE 40 mmol/L (22-30)
[2019-01-01] MEDS: POTASSIUM CHLORIDE 10 MEQ CAPSULE.ER PO SCH (13:01)
--- NOTE | 2019-01-01 16:23 | PDOC PROGRESS REPORT ---
Subjective Progress Note for:: 01/01/19 Subjective:: This is 68 years old male patient with past medical history of chronic atrial fibrillation, coronary artery disease, COPD, hypertension and hypothyroidism presented with generalized weakness and diarrhea. Patient has been treated as a case of healthcare associated pneumonia with Zosyn and vancomycin. Not patient was admitted in September 2018 for hypovolemic shock. His urine culture is positive for E. coli which is pansensitive and his blood culture grew gram-positive cocci in cluster which is identified as Staphylococcus, Auricularis which is pansensitive except for erythromycin. Zosyn and vancomycin discontinued and patient switched to ceftriaxone. Patient completed course of antibiotics and currently he is off antibiotics. patient was hypotensive at admission and had been on Levophed which had been discontinued. Patient has had intermittent hypotension which has been treated with bolus of IV fluids and maintained with normal saline. Patient has been also on Solu-Cortef high-dose which is tapered down to 50 mg IV daily. He has been also getting midodrine and fludrocortisone. Currently his blood pressure is stable. Patient has been awaiting for placement. Reason For Visit: SEPSIS,AUSTIN,LLL PNA Physical Exam Vital Signs: Temp Pulse Resp BP Pulse Ox 97.6 F 99 19 109/52 L 96 01/01/19 11:23 01/01/19 11:23 01/01/19 11:23 01/01/19 11:23 01/01/19 11:23 Intake & Output 12/31/18 01/01/19 01/02/19 06:59 06:59 06:59 Intake Total 742 925 720 Output Total 950 550 600 Balance -208 375 120 Weight 145.3 kg 146.1 kg General appearance: PRESENT: no acute distress Eye exam: PRESENT: conjunctiva pink Mouth exam: PRESENT: moist Neck exam: ABSENT: carotid bruit, JVD, lymphadenopathy, thyromegaly Respiratory exam: PRESENT: decreased breath sounds Neurological exam: PRESENT: alert, awake, oriented to time, oriented to situation Results Laboratory Results: 12/26/18 04:30 01/01/19 10:35 01/01/19 10:35 Sodium 136.8 L Potassium 4.4 Chloride 97 L Carbon Dioxide 40 H* Anion Gap 0 L BUN 20 Creatinine 0.64 Est GFR ( Amer) > 60 Est GFR (Non-Af Amer) > 60 Glucose 83 Calcium 8.7 12/10/18 12/11/18 12/12/18 14:30 04:48 04:08 Troponin I 0.038 NT-Pro-B Natriuret Pep 8520 H 7630 H 8760 H 12/13/18 12/15/18 12/21/18 04:35 05:15 04:16 Troponin I NT-Pro-B Natriuret Pep 07713 H 6410 H 10701 H 12/23/18 06:30 Troponin I NT-Pro-B Natriuret Pep 16491 H Impressions: Chest CT 12/20/18 00:00 IMPRESSION: Grossly stable appearance of the chest with small bilateral effusions, left greater than right and associated bibasilar consolidation, likely atelectasis. Patchy additional bilateral ground-glass opacities, likely infectious/inflammatory. Coronary atherosclerosis. Hepatic steatosis. Thoracentesis Ultrasound 12/23/18 09:52 IMPRESSION: SUCCESSFUL THORACENTESIS USING ULTRASOUND GUIDANCE. Chest X-Ray 12/25/18 00:00 IMPRESSION: Improved aeration of the right lung base. Stable left pleural effusion. Increased opacification in the inferior left perihilar region suggesting atelectasis versus pneumonia. Assessment and Plan - Diagnosis (1) Persistent hypotension Is this a current diagnosis for this admission?: Yes Plan: Has resolved. (2) Sepsis Qualifiers: Sepsis type: sepsis due to unspecified organism Qualified Code(s): A41.9 - Sepsis, unspecified organism Is this a current diagnosis for this admission?: Yes Plan: Is being treated. 12/19/2018-patient was admitted with sepsis and hypovolemic shock. Presently on IV Rocephin. Blood cultures from 12/10/2018-. Pulse oxes 98% on 3 L. Plan is to repeat the blood cultures. Patient is still persistently hypotensive. 12/20/2018-patient was treated with sepsis in association with hypovolemic shock. Latest blood cultures are negative. Blood pressure is improved today. But chest x-ray shows worsening of the pulmonary opacities. To repeat the blood cultures today. Started on IV Zosyn and IV vancomycin today. 12/21/2018-patient was treated with sepsis in association with hypovolemic shock. Because of the persistent infiltrates in the lungs started back on Zosyn and vancomycin yesterday he is afebrile. But blood pressures on the softer side. Blood cultures done from 12/20/2018 are negative so far. Blood cultures from 12/10/2018 are negative. 12/22/2018-patient was treated initially with sepsis with hypotension patient is back on IV vancomycin and Zosyn. Afebrile. Blood cultures are negative. Sput um culture is pending. Plan is to continue the present management. (3) Healthcare-associated pneumonia Is this a current diagnosis for this admission?: Yes Plan: Is being treated (4) Acute kidney injury Is this a current diagnosis for this admission?: Yes Plan: Has resolved (5) Hypocalcemia Is this a current diagnosis for this admission?: Yes Plan: Probably associated with his hypoalbuminemia. I requested ionized fraction of calcium. Patient started on calcium carbonate with vitamin D. 12/19/2018-patient serum calcium is 7.7 and albumin is 1.4 corrected calcium is more than 8.5. Plan to give IV albumin today. 12/20/2018-patient's latest serum calcium is 7.7 and albumin is 1.6 today's labs are pending corrected calcium is close to 9. Plan is to continue the present management. 12/21/2018-serum calcium levels are borderline low and patient is receiving calcium supplementation. Corrected calcium is within the normal range. (6) Chronic a-fib Is this a current diagnosis for this admission?: Yes Plan: Rate controlled. (7) Pleural effusion Is this a current diagnosis for this admission?: Yes Plan: Possibly parapneumonic effusion 12/21/2018-patient has bilateral pleural effusions probably going to have thoracentesis tomorrow. This pleural effusions may be secondary to both underlying CHF and pneumonia. 12/22/2018-latest chest x-ray suggested bilateral pleural effusion is going for thoracentesis tomorrow. He is on heparin drip as as a bridge for anticoagulation. Apixaban is on hold. (8) Opiate dependence due to chronic pain Is this a current diagnosis for this admission?: Yes Plan: Management per his primary care physician. (9) Morbid obesity with BMI of 40.0-44.9, adult Is this a current diagnosis for this admission?: Yes Plan: We will advised lifestyle modification.
[2019-01-01] MEDS: TAMSULOSIN HCL 0.4 MG CAP.SR.24H PO SCH (18:17)
[2019-01-01] MEDS: GABAPENTIN 300 MG CAPSULE PO SCH (21:46)
[2019-01-02] MEDS: BUPROPION HCL 100 MG TABLET PO SCH ×3 (05:52→22:00)
[2019-01-02] MEDS: PANTOPRAZOLE SODIUM 40 MG TABLET.DR PO SCH (08:57)
[2019-01-02] MEDS: MIDODRINE HCL 5 MG TABLET PO SCH ×3 (08:59→17:07)
[2019-01-02] MEDS: APIXABAN 5 MG TABLET PO SCH ×2 (09:00→17:08)
[2019-01-02] MEDS: LACTOBACILLUS ACIDOPHILUS 250 MG TAB PO SCH ×2 (09:00→17:08)
[2019-01-02] MEDS: OXYCODONE HCL SR 10 MG TABLET PO SCH ×2 (09:00→22:00)
[2019-01-02] MEDS: FINASTERIDE 5 MG TABLET PO SCH (09:01)
[2019-01-02] MEDS: POTASSIUM CHLORIDE 10 MEQ CAPSULE.ER PO SCH (09:01)
[2019-01-02] MEDS: HYDROCORTISONE SOD SUCCINATE INJ/PF 100 MG/2 ML SDV IV SCH (09:02)
[2019-01-02] MEDS: MAGNESIUM OXIDE 400 MG TABLET PO SCH ×2 (09:02→17:08)
[2019-01-02] MEDS: FLUDROCORTISONE ACETATE 0.1 MG TABLET PO SCH (09:02)
[2019-01-02] MEDS: DIGOXIN 0.125 MG TABLET PO SCH (09:03)
[2019-01-02] MEDS: PREDNISONE 10 MG TABLET PO SCH (09:06)
[2019-01-02] MEDS: TAMSULOSIN HCL 0.4 MG CAP.SR.24H PO SCH (17:08)
--- NOTE | 2019-01-02 18:17 | PDOC PROGRESS REPORT ---
Subjective Progress Note for:: 01/02/19 Subjective:: Raymond Dumont A 68 years old male with past medical history of chronic atrial fibrillation, coronary artery disease, COPD, hypertension and hypothyroidism presented with generalized weakness and diarrhea. Patient has been treated as a case of healthcare associated pneumonia with Zosyn and vancomycin. Of note patient was admitted in September 2018 for hypovolemic shock. His urine culture is positive for E. coli which is pansensitive and his blood culture grew gram-positive cocci in cluster which is identified as Staphylococcus, Auricularis which is pansensitive except for erythromycin. Zosyn and vancomycin discontinued and patient switched to ceftriaxone. Cu rrently off of antibiotics. He was hypotensive at admission and had been on Levophed which had been discontinued. Patient has had intermittent hypotension which has been treated with bolus of IV fluids and maintained with normal saline. Patient has been also on Solu-Cortef high-dose which is tapered down to 50 mg IV daily. He has been also getting midodrine and fludrocortisone. Currently his blood pressure is stable. Patient has been awaiting for placement. 01/02/2019. No acute events overnight. Denies any fever, chills, nausea, vomiting, diarrhea, constipation or any urinary symptoms. Concerned about not receiving any physical therapy while inpatient. He is anxious to be transferred to rehab where he can receive his physical therapy. Unfortunately his strength is still pending. Reason For Visit: SEPSIS,AUSTIN,LLL PNA Physical Exam Vital Signs: Temp Pulse Resp BP Pulse Ox 97.3 F 116 H 18 124/68 93 01/02/19 11:23 01/02/19 14:00 01/02/19 11:23 01/02/19 11:23 01/02/19 11:23 Intake & Output 01/01/19 01/02/19 01/03/19 06:59 06:59 06:59 Intake Total 925 720 Output Total 550 1100 400 Balance 375 -380 -400 Weight 146.1 kg 132.1 kg General appearance: PRESENT: no acute distress, morbidly obese, well-developed, well-nourished Head exam: PRESENT: atraumatic, normocephalic Respiratory exam: PRESENT: clear to auscultation almaz. ABSENT: rales, rhonchi, wheezes Cardiovascular exam: PRESENT: RRR. ABSENT: diastolic murmur, rubs, systolic murmur GI/Abdominal exam: PRESENT: normal bowel sounds, soft. ABSENT: distended, g uarding, mass, organolmegaly, rebound, tenderness Extremities exam: PRESENT: +2 edema Neurological exam: PRESENT: alert, awake, oriented to person, oriented to place, oriented to time, oriented to situation, CN II-XII grossly intact. ABSENT: motor sensory deficit Results Laboratory Results: 12/26/18 04:30 01/01/19 10:35 12/10/18 12/11/18 12/12/18 14:30 04:48 04:08 Troponin I 0.038 NT-Pro-B Natriuret Pep 8520 H 7630 H 8760 H 12/13/18 12/15/18 12/21/18 04:35 05:15 04:16 Troponin I NT-Pro-B Natriuret Pep 17055 H 6410 H 59883 H 12/23/18 06:30 Troponin I NT-Pro-B Natriuret Pep 10597 H Impressions: Chest CT 12/20/18 00:00 IMPRESSION: Grossly stable appearance of the chest with small bilateral effusions, left greater than right and associated bibasilar consolidation, likely atelectasis. Patchy additional bilateral ground-glass opacities, likely infectious/inflammatory. Coronary atherosclerosis. Hepatic steatosis. Thoracentesis Ultrasound 12/23/18 09:52 IMPRESSION: SUCCESSFUL THORACENTESIS USING ULTRASOUND GUIDANCE. Chest X-Ray 12/25/18 00:00 IMPRESSION: Improved aeration of the right lung base. Stable left pleural effusion. Increased opacification in the inferior left perihilar region suggesting atelectasis versus pneumonia. Assessment and Plan - Diagnosis (1) CHF (congestive heart failure) Is this a current diagnosis for this admission?: No Plan: Combined systolic and diastolic dysfunction. Suboptimal echo. Cardiac diet, strict in and out, fluid restriction early weights. Diuretics guided by volume status and vitals. 11/15/2018. Weight 128.4 kg. 01/03/2019 weight 148 kg. 12/13/2018. 2D echo suboptimal quality. Left ventricular systolic function low normal. Mild concentric hypertrophy of left ventricle. Right ventricle moderately dilated. Left ventricle normal size. Left ventricular diastolic function could not be adequately assessed due to atrial fibrillation. BNP on admission 8520, 92361, 08898, 22093. Troponins on 12/10/2018 0.038. 12/24/2018. Albumin 2.0. 12/10/2018 AST 122, 12/24/2017 AST 43 07/19/2018. CT abdomen noncontrast liver, spleen, adrenals no identified significant masses. (2) Persistent hypotension Is this a current diagnosis for this admission?: Yes Plan: Normotensive. SBP 120s 130s. HR 80s to 90s. Continue Midodrin 10 mg p.o. 3 times daily. 12/13/2018. 2D echo suboptimal quality. Left ventricular systolic function low normal. Mild concentric hypertrophy of left ventricle. Right ventricle moderately dilated. Left ventricle normal size. Left ventricular diastolic function could not be adequately assessed due to atrial fibrillation. BNP on admission 8520, 77795, 80126, 72869. Troponins on 12/10/2018 0.038. 12/24/2018. Albumin 2.0. 12/10/2018 AST 122, 12/24/2017 AST 43 07/19/2018. CT abdomen noncontrast liver, spleen, adrenals no identified significant masses. (3) Chronic a-fib Is this a current diagnosis for this admission?: Yes Plan: Rate controlled. Continue digoxin, metoprolol, aspirin and Eliquis. 12/13/2018. 2D echo suboptimal quality. Left ventricular systolic function low normal. Mild concentric hypertrophy of left ventricle. Right ventricle moderately dilated. Left ventricle normal size. Left ventricular diastolic function could not be adequately assessed due to atrial fibrillation. BNP on admission 8520, 48863, 62530, 08660. Troponins on 12/10/2018 0.038. (4) Healthcare-associated pneumonia Is this a current diagnosis for this admission?: Yes Plan: Asymptomatic. Resolved. 12/19/2018-patient healthcare associated pneumonia treated with IV Zosyn, vancomycin and ceftriaxone. Currently asymptomatic. Afebrile. Pulmonary was consulted. (5) Hypocalcemia Is this a current diagnosis for this admission?: Yes Plan: Probably associated with his hypoalbuminemia. Continue calcium and vitamin D supplements. Has received IV albumin on 12/19/2018. (6) Obesity (BMI 35.0-39.9 without comorbidity) Is this a current diagnosis for this admission?: Yes Plan: Diet and lifestyle modification. (7) Opiate dependence due to chronic pain Is this a current diagnosis for this admission?: Yes Plan: Management per his primary care physician. (8) Pleural effusion Is this a current diagnosis for this admission?: Yes Plan: Likely due to his underlying CHF. Had a thoracentesis done by radiology on 12/23/2018. WBC 25, RBC 18, glucose 101, LDH 55, total protein 1.0. Pleural fluid culture and stains negative. (9) Sepsis Qualifiers: Sepsis type: sepsis due to unspecified organism Qualified Code(s): A41.9 - Sepsis, unspecified organism Is this a current diagnosis for this admission?: Yes Plan: Likely due to lower lobe pneumonia. Completed a course of vancomycin and Zosyn and ceftriaxone. 12/10/2018. Culture positive for Staphylococcus articularis pansensitive except for erythromycin. Currently normotensive, afebrile. (10) Acute kidney injury Is this a current diagnosis for this admission?: Yes Plan: Likely due to sepsis. Resolved. Creatinine within normal limits. Renal ultrasound negative for any acute abnormalities. (11) Morbid obesity with BMI of 40.0-44.9, adult Is this a current diagnosis for this admission?: Yes Plan: Diet and lifestyle modifications.
[2019-01-02] MEDS: GABAPENTIN 300 MG CAPSULE PO SCH (22:00)
[2019-01-03] MEDS: BUPROPION HCL 100 MG TABLET PO SCH ×3 (06:08→22:03)
[2019-01-03] MEDS: LACTOBACILLUS ACIDOPHILUS 250 MG TAB PO SCH ×2 (10:40→17:58)
[2019-01-03] MEDS: PANTOPRAZOLE SODIUM 40 MG TABLET.DR PO SCH (10:40)
[2019-01-03] MEDS: FINASTERIDE 5 MG TABLET PO SCH (10:40)
[2019-01-03] MEDS: PREDNISONE 10 MG TABLET PO SCH (10:40)
[2019-01-03] MEDS: MAGNESIUM OXIDE 400 MG TABLET PO SCH ×2 (10:40→17:58)
[2019-01-03] MEDS: OXYCODONE HCL SR 10 MG TABLET PO SCH ×2 (10:40→22:02)
[2019-01-03] MEDS: DIGOXIN 0.125 MG TABLET PO SCH (10:41)
[2019-01-03] MEDS: POTASSIUM CHLORIDE 10 MEQ CAPSULE.ER PO SCH ×2 (10:42→10:51)
[2019-01-03] MEDS: FLUDROCORTISONE ACETATE 0.1 MG TABLET PO SCH (10:44)
[2019-01-03] MEDS: HYDROCORTISONE SOD SUCCINATE INJ/PF 100 MG/2 ML SDV IV SCH (10:44)
[2019-01-03] MEDS: APIXABAN 5 MG TABLET PO SCH ×2 (10:48→17:58)
[2019-01-03] MEDS: MIDODRINE HCL 5 MG TABLET PO SCH ×3 (10:48→19:45)
--- NOTE | 2019-01-03 13:19 | PDOC PROGRESS REPORT ---
Subjective Progress Note for:: 01/03/19 Subjective:: Raymond Dumont A 68 years old male with past medical history of chronic atrial fibrillation, coronary artery disease, COPD, hypertension and hypothyroidism presented with generalized weakness and diarrhea. Patient has been treated as a case of healthcare associated pneumonia with Zosyn and vancomycin. Of note patient was admitted in September 2018 for hypovolemic shock. His urine culture is positive for E. coli which is pansensitive and his blood culture grew gram-positive cocci in cluster which is identified as Staphylococcus, Auricularis which is pansensitive except for erythromycin. Zosyn and vancomycin discontinued and patient switched to ceftriaxone. Cu rrently off of antibiotics. He was hypotensive at admission and had been on Levophed which had been discontinued. Patient has had intermittent hypotension which has been treated with bolus of IV fluids and maintained with normal saline. Patient has been also on Solu-Cortef high-dose which is tapered down to 50 mg IV daily. He has been also getting midodrine and fludrocortisone. Currently his blood pressure is stable. Patient has been awaiting for placement. 01/02/2019. No acute events overnight. Denies any fever, chills, nausea, vomiting, diarrhea, constipation or any urinary symptoms. Concerned about not receiving any physical therapy while inpatient. He is anxious to be transferred to rehab where he can receive his physical therapy. Pending transfer Reason For Visit: SEPSIS,AUSTIN,LLL PNA Physical Exam Vital Signs: Temp Pulse Resp BP Pulse Ox 97.4 F 102 H 14 105/81 95 01/03/19 11:46 01/03/19 11:46 01/03/19 07:46 01/03/19 11:46 01/03/19 11:46 Intake & Output 01/02/19 01/03/19 01/04/19 06:59 06:59 06:59 Intake Total 720 563 352 Output Total 1100 1500 625 Balance -775 -937 -319 Weight 132.1 kg 148 kg General appearance: PRESENT: no acute distress, well-developed, well-nourished Respiratory exam: PRESENT: clear to auscultation almaz. ABSENT: rales, rhonchi, wheezes Cardiovascular exam: PRESENT: irregular rhythm GI/Abdominal exam: PRESENT: normal bowel sounds, soft. ABSENT: distended, guarding, mass, organolmegaly, rebound, tenderness Extremities exam: PRESENT: +2 edema Neurological exam: PRESENT: alert, awake, oriented to person, oriented to place, oriented to time, oriented to situation, CN II-XII grossly intact. ABSENT: motor sensory deficit Results Laboratory Results: 12/26/18 04:30 01/01/19 10:35 12/10/18 12/11/18 12/12/18 14:30 04:48 04:08 Troponin I 0.038 NT-Pro-B Natriuret Pep 8520 H 7630 H 8760 H 12/13/18 12/15/18 12/21/18 04:35 05:15 04:16 Troponin I NT-Pro-B Natriuret Pep 14420 H 6410 H 44497 H 12/23/18 06:30 Troponin I NT-Pro-B Natriuret Pep 73500 H Impressions: Chest CT 12/20/18 00:00 IMPRESSION: Grossly stable appearance of the chest with small bilateral effusions, left greater than right and associated bibasilar consolidation, likely atelectasis. Patchy additional bilateral ground-glass opacities, likely infectious/inflammatory. Coronary atherosclerosis. Hepatic steatosis. Thoracentesis Ultrasound 12/23/18 09:52 IMPRESSION: SUCCESSFUL THORACENTESIS USING ULTRASOUND GUIDANCE. Chest X-Ray 12/25/18 00:00 IMPRESSION: Improved aeration of the right lung base. Stable left pleural effusion. Increased opacification in the inferior left perihilar region suggesting atelectasis versus pneumonia. Assessment and Plan - Diagnosis (1) CHF (congestive heart failure) Is this a current diagnosis for this admission?: No Plan: Combined systolic and diastolic dysfunction. Suboptimal echo. Cardiac diet, strict in and out, fluid restriction early weights. Diuretics guided by volume status and vitals. 11/15/2018. Weight 128.4 kg. 01/03/2019 weight 148 kg. 12/13/2018. 2D echo suboptimal quality. Left ventricular systolic function low normal. Mild concentric hypertrophy of left ventricle. Right ventricle moderately dilated. Left ventricle normal size. Left ventricular diastolic function could not be adequately assessed due to atrial fibrillation. BNP on admission 8520, 09117, 70857, 44852. Troponins on 12/10/2018 0.038. 12/24/2018. Albumin 2.0. 12/10/2018 AST 122, 12/24/2017 AST 43 07/19/2018. CT abdomen noncontrast liver, spleen, adrenals no identified significant masses. (2) Persistent hypotension Is this a current diagnosis for this admission?: Yes Plan: Normotensive. SBP 120s 130s.HR 80s to 90s. DC Midodrin. 12/13/2018. 2D echo suboptimal quality. Left ventricular systolic function low normal. Mild concentric hypertrophy of left ventricle. Right ventricle moderately dilated. Left ventricle normal size. Left ventricular diastolic function could not be adequately assessed due to atrial fibrillation. BNP on admission 8520, 11391, 40228, 22366. Troponins on 12/10/2018 0.038. 12/24/2018. Albumin 2.0. 12/10/2018 AST 122, 12/24/2017 AST 43 07/19/2018. CT abdomen noncontrast liver, spleen, adrenals no identified significant masses. (3) Chronic a-fib Is this a current diagnosis for this admission?: Yes Plan: Rate controlled. Continue digoxin, metoprolol, aspirin and Eliquis. 12/13/2018. 2D echo suboptimal quality. Left ventricular systolic function low normal. Mild concentric hypertrophy of left ventricle. Right ventricle moderately dilated. Left ventricle normal size. Left ventricular diastolic function could not be adequately assessed due to atrial fibrillation. BNP on admission 8520, 75475, 63159, 93402. Troponins on 12/10/2018 0.038. (4) Healthcare-associated pneumonia Is this a current diagnosis for this admission?: Yes Plan: Asymptomatic. Resolved. 12/19/2018-patient healthcare associated pneumonia treated with IV Zosyn, vancomycin and ceftriaxone. Currently asymptomatic. Afebrile. Pulmonary was consulted. (5) Hypocalcemia Is this a current diagnosis for this admission?: Yes Plan: Probably associated with his hypoalbuminemia. Continue calcium and vitamin D supplements. Has received IV albumin on 12/19/2018. (6) Opiate dependence due to chronic pain Is this a current diagnosis for this admission?: Yes Plan: Management per his primary care physician. (7) Pleural effusion Is this a current diagnosis for this admission?: Yes Plan: Likely due to his underlying CHF. Had a thoracentesis done by radiology on 12/23/2018. WBC 25, RBC 18, glucose 101, LDH 55, total protein 1.0. Pleural fluid culture and stains negative. (8) Sepsis Qualifiers: Sepsis type: sepsis due to unspecified organism Qualified Code(s): A41.9 - Sepsis, unspecified organism Is this a current diagnosis for this admission?: Yes Plan: Likely due to lower lobe pneumonia. Completed a course of vancomycin and Zosyn and ceftriaxone. 12/10/2018. Culture positive for Staphylococcus articularis pansensitive except for erythromycin. Currently normotensive, afebrile. (9) Acute kidney injury Is this a current diagnosis for this admission?: Yes Plan: Likely due to sepsis. Resolved. Creatinine within normal limits. Renal ultrasound negative for any acute abnormalities. (10) Morbid obesity with BMI of 40.0-44.9, adult Is this a current diagnosis for this admission?: Yes Plan: Diet and lifestyle modifications.
[2019-01-03] MEDS ORDERED: ALBUMIN HUMAN 12.5 GM/50 ML RTUINJ IV SCH (14:00)
[2019-01-03] MEDS: ALBUMIN HUMAN 12.5 GM/50 ML RTUINJ IV SCH ×5 (17:53→22:02)
[2019-01-03] MEDS: LISINOPRIL 5 MG TABLET PO SCH (17:54)
[2019-01-03] MEDS: METOPROLOL TARTRATE 25 MG TABLET PO SCH ×2 (17:54→22:03)
[2019-01-03] MEDS: TAMSULOSIN HCL 0.4 MG CAP.SR.24H PO SCH (19:42)
[2019-01-03] MEDS: GABAPENTIN 300 MG CAPSULE PO SCH (22:03)
[2019-01-03 22:41] LABS: ABSOLUTE LYMPHOCYTES (AUTO) 0.6 10^3/uL (0.5-4.7); ABSOLUTE MONOCYTES (AUTO) 0.3 10^3/uL (0.1-1.4); ABSOLUTE NEUT (AUTO) 3.4 10^3/uL (1.7-8.2); BASOPHILS % (AUTO) 0.1 % (0-2); EOSINOPHILS % (AUTO) 0.3 % (0-6); HEMATOCRIT 25.5 % (37.9-51.0); HEMOGLOBIN 8.8 g/dL (13.5-17.0); LYMPHOCYTES % (AUTO) 13.1 % (13-45); MEAN CORPUSCULAR HEMOGLOBIN 33.5 pg (27.0-33.4); MEAN CORPUSCULAR HGB CONC 34.7 g/dL (32.0-36.0); MEAN CORPUSCULAR VOLUME 97 fl (80-97); MONOCYTES % (AUTO) 7.4 % (3-13); PLATELET COUNT 177 10^3/uL (150-450); RED BLOOD COUNT 2.64 10^6/uL (4.35-5.55); RED CELL DISTRIBUTION WIDTH 17.1 % (11.5-14.0); SEGMENTED NEUTROPHILS % (AUTO) 79.1 % (42-78); TOTAL CELLS COUNTED % (AUTO) 100 %; WHITE BLOOD COUNT 4.3 10^3/uL (4.0-10.5)
[2019-01-03 23:23] LABS: ALANINE AMINOTRANSFERASE 108 U/L (21-72); ALBUMIN 2.7 g/dL (3.5-5.0); ALKALINE PHOSPHATASE 52 U/L (38-126); ASPARTATE AMINO TRANSFERASE 90 U/L (17-59); BILIRUBIN,DIRECT 0.3 mg/dL (0.0-0.4); BILIRUBIN,TOTAL 0.6 mg/dL (0.2-1.3); BLOOD UREA NITROGEN 16 mg/dL (7-20); CALCIUM 8.7 mg/dL (8.4-10.2); GLUCOSE 93 mg/dL (75-110); POTASSIUM 4.3 mmol/L (3.6-5.0); TOTAL PROTEIN 4.7 g/dL (6.3-8.2)
[2019-01-03 23:59] LABS: CHLORIDE 94 mmol/L (98-107); SODIUM 136.3 mmol/L (137-145)
[2019-01-04] MEDS: ALBUMIN HUMAN 12.5 GM/50 ML RTUINJ IV SCH ×3 (00:03→02:28)
[2019-01-04 00:04] LABS: ANION GAP 2 (5-19)
[2019-01-04 00:05] LABS: CARBON DIOXIDE 40 mmol/L (22-30)
[2019-01-04] MEDS: BUPROPION HCL 100 MG TABLET PO SCH ×3 (05:12→21:53)
[2019-01-04] MEDS ORDERED: FUROSEMIDE INJ/PF 20 MG/2 ML SDV IV SCH (10:00)
[2019-01-04] MEDS ORDERED: LISINOPRIL 5 MG TABLET PO SCH (10:00)
[2019-01-04] MEDS ORDERED: DILTIAZEM HCL/D5W 125 MG/125 ML RTUINJ IV PRN (10:03)
[2019-01-04] MEDS ORDERED: DILTIAZEM HCL/D5W 125 MG/125 ML RTUINJ IV ONE (10:22)
--- NOTE | 2019-01-04 10:59 | RADIOLOGY REPORT (SQ) ---
EXAM DESCRIPTION: CHEST SINGLE VIEW COMPLETED DATE/TIME: 01/04/2019 10:51 am REASON FOR STUDY: sob COMPARISON: 12/25/2018 NUMBER OF VIEWS: One view. TECHNIQUE: Single frontal radiographic image of the chest acquired. LIMITATIONS: None. FINDINGS: LUNGS AND PLEURA: Since the prior study the patient has developed increased airspace disea se in the right base. There is a small right effusion. There is increasing consolidation on the lef t. There is volume loss with mediastinal shift. Central line remains in place. MEDIASTINUM AND HILAR STRUCTURES: Mediastinal shift toward the left. HEART AND VASCULAR STRUCTURES: Difficult to evaluate. BONES: No acute findings. OTHER: No other significant finding. IMPRESSION: Increasing airspace disease on the left. There is volume loss most consistent with atel ectasis. There are bilateral pleural effusions left greater than right. Minimal right basilar airsp tati disease could represent asymmetric edema, pneumonia or atelectasis. TECHNICAL DOCUMENTATION: JOB ID: [id number] [employer]- All Rights Reserved Reading location - IP/workstation name: [email or web address]
[2019-01-04] MEDS ORDERED: FUROSEMIDE INJ/PF 20 MG/2 ML SDV ONE (11:19)
[2019-01-04 11:29] LABS: ARTERIAL BLOOD BASE EXCESS 13.5 mmol/L; ARTERIAL BLOOD FIO2 30%; ARTERIAL BLOOD H2CO3 2.02 mmol/L (1.05-1.35); ARTERIAL BLOOD HCO3 40.7 mmol/L (20-24); ARTERIAL BLOOD O2 SATURATION 88.9 % (94-98); ARTERIAL BLOOD PO2 57.7 mmHg (80-100); ARTERIAL BLOOD TOTAL CO2 42.7 mmol/L (23-27)
[2019-01-04] MEDS: POTASSIUM CHLORIDE 10 MEQ CAPSULE.ER PO SCH (15:18)
[2019-01-04] MEDS: LACTOBACILLUS ACIDOPHILUS 250 MG TAB PO SCH ×2 (15:18→19:31)
[2019-01-04] MEDS: APIXABAN 5 MG TABLET PO SCH ×2 (15:18→19:31)
[2019-01-04] MEDS: PANTOPRAZOLE SODIUM 40 MG TABLET.DR PO SCH (15:18)
[2019-01-04] MEDS: DIGOXIN 0.125 MG TABLET PO SCH (15:19)
[2019-01-04] MEDS: OXYCODONE HCL SR 10 MG TABLET PO SCH ×2 (15:19→21:53)
[2019-01-04] MEDS: LISINOPRIL 5 MG TABLET PO SCH (15:20)
[2019-01-04] MEDS: MAGNESIUM OXIDE 400 MG TABLET PO SCH ×2 (15:27→19:31)
[2019-01-04] MEDS: FINASTERIDE 5 MG TABLET PO SCH (15:27)
[2019-01-04] MEDS: PREDNISONE 10 MG TABLET PO SCH (15:35)
--- NOTE | 2019-01-04 16:20 | PDOC PROGRESS REPORT ---
Subjective Progress Note for:: 01/04/19 Subjective:: Raymond Dumont A 68 years old male with past medical history of chronic atrial fibrillation, coronary artery disease, COPD, hypertension and hypothyroidism presented with generalized weakness and diarrhea. Patient has been treated as a case of healthcare associated pneumonia with Zosyn and vancomycin. Of note patient was admitted in September 2018 for hypovolemic shock. His urine culture is positive for E. coli which is pansensitive and his blood culture grew gram-positive cocci in cluster which is identified as Staphylococcus, Auricularis which is pansensitive except for erythromycin. Zosyn and vancomycin discontinued and patient switched to ceftriaxone. Cu rrently off of antibiotics. He was hypotensive at admission and had been on Levophed which had been discontinued. Patient has had intermittent hypotension which has been treated with bolus of IV fluids and maintained with normal saline. Patient has been also on Solu-Cortef high-dose which is tapered down to 50 mg IV daily. He has been also getting midodrine and fludrocortisone. Currently his blood pressure is stable. Patient has been awaiting for placement. 01/03/2019. No acute events overnight. Denies any fever, chills, nausea, vomiting, diarrhea, constipation or any urinary symptoms. Concerned about not receiving any physical therapy while inpatient. He is anxious to be transferred to rehab where he can receive his physical therapy. 01/04/2019. Patient developed A. fib RVR this morning with severe respiratory distress and hypoxemia. Patient will start on IV Lasix, BiPAP significant improvement of his symptoms. Chest x-ray showed bilateral pleural effusion and pulmonary edema. ABG showed pH of 7.40, PCO2 of 67 up from 39.9, PO2 of 57.7 down from 73.5. On 30% of oxygen. Denies any chest pain, nausea, vomiting, diarrhea, constipation or any urinary symptoms. Reason For Visit: SEPSIS,[place],LLL PNA Physical Exam Vital Signs: Temp Pulse Resp BP Pulse Ox 98.0 F 79 26 H 144/73 H 94 01/04/19 11:21 01/04/19 11:21 01/04/19 10:40 01/04/19 11:19 01/04/19 11:21 Intake & Output 01/03/19 01/04/19 01/05/19 06:59 06:59 06:59 Intake Total 563 1416 118 Output Total 1500 2200 900 Balance -937 -784 -782 Weight 148 kg 146.3 kg General appearance: PRESENT: morbidly obese, severe distress Head exam: PRESENT: atraumatic, normocephalic Respiratory exam: PRESENT: accessory muscle use, clear to auscultation almaz, decreased breath sounds, prolonged expiratory phas, symmetrical, tachypnea. ABSENT: rales, rhonchi, wheezes Cardiovascular exam: PRESENT: irregular rhythm, tachycardia. ABSENT: diastolic murmur, rubs, systolic murmur Pulses: PRESENT: normal dorsalis pedis pul Rectal exam: PRESENT: deferred Extremities exam: PRESENT: +2 edema Neurological exam: PRESENT: alert, awake, oriented to person, oriented to place, oriented to time, oriented to situation, CN II-XII grossly intact. ABSENT: motor sensory deficit Results Laboratory Results: 01/03/19 22:00 01/03/19 22:00 01/03/19 01/03/19 01/04/19 22:00 22:00 11:00 WBC 4.3 RBC 2.64 L Hgb 8.8 L Hct 25.5 L MCV 97 MCH 33.5 H MCHC 34.7 RDW 17.1 H Plt Count 177 Seg Neutrophils % 79.1 H Lymphocytes % 13.1 Monocytes % 7.4 Eosinophils % 0.3 Basophils % 0.1 Absolute Neutrophils 3.4 Absolute Lymphocytes 0.6 Absolute Monocytes 0.3 Absolute Eosinophils 0.0 Absolute Basophils 0.0 Carbonic Acid 2.02 H HCO3/H2CO3 Ratio 20:1 ABG pH 7.40 ABG pCO2 67.0 H ABG pO2 57.7 L ABG HCO3 40.7 H ABG O2 Saturation 88.9 L ABG Base Excess 13.5 FiO2 30% Sodium 136.3 L Potassium 4.3 Chloride 94 L Carbon Dioxide 40 H* Anion Gap 2 L BUN 16 Creatinine 0.76 Est GFR ( Amer) > 60 Est GFR (Non-Af Amer) > 60 Glucose 93 Calcium 8.7 Magnesium 2.3 Total Bilirubin 0.6 AST 90 H ALT 108 H Alkaline Phosphatase 52 Total Protein 4.7 L Albumin 2.7 L 12/10/18 12/11/18 12/12/18 14:30 04:48 04:08 Troponin I 0.038 NT-Pro-B Natriuret Pep 8520 H 7630 H 8760 H 12/13/18 12/15/18 12/21/18 04:35 05:15 04:16 Troponin I NT-Pro-B Natriuret Pep 37771 H 6410 H 89847 H 12/23/18 06:30 Troponin I NT-Pro-B Natriuret Pep 02447 H Impressions: Chest CT 12/20/18 00:00 IMPRESSION: Grossly stable appearance of the chest with small bilateral effusions, left greater than right and associated bibasilar consolidation, likely atelectasis. Patchy additional bilateral ground-glass opacities, likely infectious/inflammatory. Coronary atherosclerosis. Hepatic steatosis. Thoracentesis Ultrasound 12/23/18 09:52 IMPRESSION: SUCCESSFUL THORACENTESIS USING ULTRASOUND GUIDANCE. Chest X-Ray 01/04/19 00:00 IMPRESSION: Increasing airspace disease on the left. There is volume loss most consistent with atelectasis. There are bilateral pleural effusions left greater than right. Minimal right basilar airspace disease could represent asymmetric edema, pneumonia or atelectasis. Assessment and Plan - Diagnosis (1) Acute on chronic respiratory failure with hypoxia and hypercapnia Is this a current diagnosis for this admission?: Yes Plan: Likely exacerbated due to acute pulmonary edema caused by acute CHF exacerbation the setting of A. fib RVR. Chest x-ray showed bilateral pleural effusion and pulmonary edema. ABG showed pH of 7.40, PCO2 of 67 up from 39.9, PO2 of 57.7 down from 73.5. On 30% of oxygen. Started on BiPAP, aggressive diuresis guided by vitals. Continue Cardizem drip, beta-blockers, digoxin, aggressive diuresis guided by vital status. Volume restriction, cardiac diet. Daily weights. (2) CHF (congestive heart failure) Qualifiers: Heart failure type: combined systolic and diastolic Is this a current diagnosis for this admission?: No Plan: Combined systolic and diastolic dysfunction. Suboptimal echo. Denies history of CAD. Likely due to combination of A. fib and uncontrolled hypertension. Cardiac diet, strict in and out, fluid restriction daily weights. Diuretics guided by volume status and vitals. 11/15/2018. Weight 128.4 kg. 01/03/2019 weight 148 kg. 12/13/2018. 2D echo suboptimal quality. Left ventricular systolic function low normal. Mild concentric hypertrophy of left ventricle. Right ventricle moderately dilated. Left ventricle normal size. Left ventricular diastolic function could not be adequately assessed due to atrial fibrillation. BNP on admission 8520, 91442, 24480, 48511. Troponins on 12/10/2018 0.038. 12/24/2018. Albumin 2.0. 12/10/2018 AST 122, 12/24/2017 AST 43 07/19/2018. CT abdomen noncontrast liver, spleen, adrenals no identified significant masses. (3) Persistent hypotension Is this a current diagnosis for this admission?: Yes Plan: Resolved. Normotensive. SBP 120s 130s.HR 80s to 90s. DC Midodrin. 12/13/2018. 2D echo suboptimal quality. Left ventricular systolic function low normal. Mild concentric hypertrophy of left ventricle. Right ventricle moderately dilated. Left ventricle normal size. Left ventricular diastolic function could not be adequately assessed due to atrial fibrillation. BNP on admission 8520, 28775, 87246, 47077. Troponins on 12/10/2018 0.038. 12/24/2018. Albumin 2.0. 12/10/2018 AST 122, 12/24/2017 AST 43 07/19/2018. CT abdomen noncontrast liver, spleen, adrenals no identified significant masses. (4) Chronic a-fib Is this a current diagnosis for this admission?: Yes Plan: A. fib RVR. Started on Cardizem drip. Continue digoxin, metoprolol, aspirin and Eliquis. 12/13/2018. 2D echo suboptimal quality. Left ventricular systolic function low normal. Mild concentric hypertrophy of left ventricle. Right ventricle moderately dilated. Left ventricle normal size. Left ventricular diastolic function could not be adequately assessed due to atrial fibrillation. BNP on admission 8520, 95883, 63334, 54021. Troponins on 12/10/2018 0.038. (5) Healthcare-associated pneumonia Is this a current diagnosis for this admission?: Yes Plan: Resolved. Likely due to GNR or Staph aureus 12/19/2018 patient healthcare associated pneumonia treated with IV Zosyn, vancomycin and ceftriaxone. Currently asymptomatic. Afebrile. Pulmonary was consulted. (6) Hypocalcemia Is this a current diagnosis for this admission?: Yes Plan: Probably associated with his hypoalbuminemia. Continue calcium and vitamin D supplements. Has received IV albumin on 12/19/2018. (7) Opiate dependence due to chronic pain Is this a current diagnosis for this admission?: Yes Plan: Management per his primary care physician. (8) Pleural effusion Is this a current diagnosis for this admission?: Yes Plan: Likely due to his underlying CHF. Had a thoracentesis done by radiology on 12/23/2018. WBC 25, RBC 18, glucose 101, LDH 55, total protein 1.0. Pleural fluid culture and stains negative. (9) Sepsis Qualifiers: Sepsis type: sepsis due to unspecified organism Qualified Code(s): A41.9 - Sepsis, unspecified organism Is this a current diagnosis for this admission?: Yes Plan: Resolved. Likely due to lower lobe pneumonia. Completed a course of vancomycin and Zosyn and ceftriaxone. 12/10/2018. Culture positive for Staphylococcus articularis pansensitive except for erythromycin. Currently normotensive, afebrile. (10) Acute kidney injury Is this a current diagnosis for this admission?: Yes Plan: Likely due to sepsis. Resolved. Creatinine within normal limits. Renal ultrasound negative for any acute abnormalities. 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 Diet and lifestyle modifications. (12) BPH (benign prostatic hyperplasia) Qualifiers: Lower urinary tract symptom detail: urinary frequency Is this a current diagnosis for this admission?: Yes Plan: Continue Tamsulosin. Outpatient urology follow-up. (13) COPD (chronic obstructive pulmonary disease) Qualifiers: COPD type: unspecified COPD Qualified Code(s): J44.9 - Chronic obstructive pulmonary disease, unspecified Is this a current diagnosis for this admission?: Yes Plan: DuoNeb's, BiPAP, steroids, incentive spirometry, flutter valve. Outpatient pulmonary follow-up
[2019-01-04] MEDS: TAMSULOSIN HCL 0.4 MG CAP.SR.24H PO SCH (19:31)
[2019-01-04] MEDS: METOPROLOL TARTRATE 25 MG TABLET PO SCH ×2 (19:42→21:53)
[2019-01-04] MEDS: GABAPENTIN 300 MG CAPSULE PO SCH (21:53)
[2019-01-04] MEDS: FUROSEMIDE INJ/PF 20 MG/2 ML SDV IV SCH (21:54)
[2019-01-05] MEDS: ACETAMINOPHEN 325 MG TABLET PO PRN (03:59)
[2019-01-05] MEDS: BUPROPION HCL 100 MG TABLET PO SCH ×3 (05:48→22:41)
[2019-01-05 07:40] LABS: ABSOLUTE EOSINOPHILS # (AUTO) 0.1 10^3/uL (0.0-0.6); ABSOLUTE MONOCYTES (AUTO) 0.5 10^3/uL (0.1-1.4); BASOPHILS % (AUTO) 0.2 % (0-2); EOSINOPHILS % (AUTO) 2.2 % (0-6); HEMATOCRIT 25.3 % (37.9-51.0); HEMOGLOBIN 8.7 g/dL (13.5-17.0); LYMPHOCYTES % (AUTO) 17.3 % (13-45); MEAN CORPUSCULAR HEMOGLOBIN 33.3 pg (27.0-33.4); MEAN CORPUSCULAR HGB CONC 34.6 g/dL (32.0-36.0); MEAN CORPUSCULAR VOLUME 96 fl (80-97); MONOCYTES % (AUTO) 8.5 % (3-13); PLATELET COUNT 164 10^3/uL (150-450); RED BLOOD COUNT 2.62 10^6/uL (4.35-5.55); RED CELL DISTRIBUTION WIDTH 17.3 % (11.5-14.0); SEGMENTED NEUTROPHILS % (AUTO) 71.8 % (42-78); TOTAL CELLS COUNTED % (AUTO) 100 %; WHITE BLOOD COUNT 5.5 10^3/uL (4.0-10.5)
[2019-01-05 08:04] LABS: ALANINE AMINOTRANSFERASE 88 U/L (21-72); ALBUMIN 2.4 g/dL (3.5-5.0); ALKALINE PHOSPHATASE 46 U/L (38-126); ASPARTATE AMINO TRANSFERASE 75 U/L (17-59); BILIRUBIN,DIRECT 0.3 mg/dL (0.0-0.4); BILIRUBIN,TOTAL 0.9 mg/dL (0.2-1.3); BLOOD UREA NITROGEN 14 mg/dL (7-20); CALCIUM 8.6 mg/dL (8.4-10.2); CHLORIDE 92 mmol/L (98-107); POTASSIUM 3.5 mmol/L (3.6-5.0); TOTAL PROTEIN 4.2 g/dL (6.3-8.2)
[2019-01-05 08:13] LABS: ANION GAP 4 (5-19)
[2019-01-05 08:14] LABS: CARBON DIOXIDE 40 mmol/L (22-30); GLUCOSE 59 mg/dL (75-110)
[2019-01-05] MEDS: MAGNESIUM OXIDE 400 MG TABLET PO SCH ×2 (09:16→18:28)
[2019-01-05] MEDS: METOPROLOL TARTRATE 25 MG TABLET PO SCH ×2 (09:16→22:40)
[2019-01-05] MEDS: LACTOBACILLUS ACIDOPHILUS 250 MG TAB PO SCH ×2 (09:17→18:28)
[2019-01-05] MEDS: PREDNISONE 10 MG TABLET PO SCH (09:17)
[2019-01-05] MEDS: PANTOPRAZOLE SODIUM 40 MG TABLET.DR PO SCH (09:17)
[2019-01-05] MEDS: FINASTERIDE 5 MG TABLET PO SCH (09:17)
[2019-01-05] MEDS: APIXABAN 5 MG TABLET PO SCH ×2 (09:17→18:28)
[2019-01-05] MEDS: OXYCODONE HCL SR 10 MG TABLET PO SCH (09:18)
[2019-01-05] MEDS: DIGOXIN 0.125 MG TABLET PO SCH (09:19)
[2019-01-05] MEDS: POTASSIUM CHLORIDE 10 MEQ CAPSULE.ER PO SCH (09:23)
[2019-01-05] MEDS: FUROSEMIDE INJ/PF 20 MG/2 ML SDV IV SCH (09:23)
[2019-01-05] MEDS ORDERED: DILTIAZEM HCL 60 MG TABLET PO SCH ×2 (14:00→22:00)
--- NOTE | 2019-01-05 16:09 | PDOC PROGRESS REPORT ---
Subjective Progress Note for:: 01/05/19 Subjective:: Raymond Dumont A 68 years old male with past medical history of chronic atrial fibrillation, coronary artery disease, COPD, hypertension and hypothyroidism presented with generalized weakness and diarrhea. Patient has been treated as a case of healthcare associated pneumonia with Zosyn and vancomycin. Of note patient was admitted in September 2018 for hypovolemic shock. His urine culture is positive for E. coli which is pansensitive and his blood culture grew gram-positive cocci in cluster which is identified as Staphylococcus, Auricularis which is pansensitive except for erythromycin. Zosyn and vancomycin discontinued and patient switched to ceftriaxone. Cu rrently off of antibiotics. He was hypotensive at admission and had been on Levophed which had been discontinued. Patient has had intermittent hypotension which has been treated with bolus of IV fluids and maintained with normal saline. Patient has been also on Solu-Cortef high-dose which is tapered down to 50 mg IV daily. He has been also getting midodrine and fludrocortisone. Currently his blood pressure is stable. Patient has been awaiting for placement. 01/03/2019. No acute events overnight. Denies any fever, chills, nausea, vomiting, diarrhea, constipation or any urinary symptoms. Concerned about not receiving any physical therapy while inpatient. He is anxious to be transferred to rehab where he can receive his physical therapy. 01/04/2019. Patient developed A. fib RVR this morning with severe respiratory distress and hypoxemia. Patient will start on IV Lasix, BiPAP significant improvement of his symptoms. Chest x-ray showed bilateral pleural effusion and pulmonary edema. ABG showed pH of 7.40, PCO2 of 67 up from 39.9, PO2 of 57.7 down from 73.5. On 30% of oxygen. Denies any chest pain, nausea, vomiting, diarrhea, constipation or any urinary symptoms. 01/05/2019. No acute events overnight. Respiratory symptom has improved significantly. Patient on nasal cannula upon encounter feeling that he is feeling much better than yesterday. Saturating 98% on 4.5 L, fluid balance of - 5632 significant improvement of his bilateral lower extremity edema. Denies any fever, chills, nausea, vomiting, diarrhea, constipation or any urinary symptoms. Patient blood pressure was dropping towards the evening BP of 82/44 asymptomatic. His diuretics were stopped, Cardizem PO and BB PO cut in 09/20. Reason For Visit: SEPSIS,[place],LLL PNA Physical Exam Vital Signs: Temp Pulse Resp BP Pulse Ox 97.6 F 71 18 82/44 L 98 01/05/19 11:07 01/05/19 11:07 01/05/19 11:07 01/05/19 15:01 01/05/19 11:07 Intake & Output 01/04/19 01/05/19 01/06/19 06:59 06:59 06:59 Intake Total 1416 118 600 Output Total 2200 5750 650 Balance -784 -5632 -50 Weight 146.3 kg 146.8 kg General appearance: PRESENT: no acute distress, well-developed, well-nourished Head exam: PRESENT: atraumatic, normocephalic Respiratory exam: PRESENT: clear to auscultation almaz, decreased breath sounds. ABSENT: rales, rhonchi, wheezes GI/Abdominal exam: PRESENT: normal bowel sounds, soft. ABSENT: distended, guarding, mass, organolmegaly, rebound, tenderness Extremities exam: PRESENT: +2 edema Neurological exam: PRESENT: alert, awake, oriented to person, oriented to place, oriented to time, oriented to situation, CN II-XII grossly intact. ABSENT: motor sensory deficit Results Laboratory Results: 01/05/19 06:59 01/05/19 06:59 01/05/19 01/05/19 06:59 06:59 WBC 5.5 RBC 2.62 L Hgb 8.7 L Hct 25.3 L MCV 96 MCH 33.3 MCHC 34.6 RDW 17.3 H Plt Count 164 Seg Neutrophils % 71.8 Lymphocytes % 17.3 Monocytes % 8.5 Eosinophils % 2.2 Basophils % 0.2 Absolute Neutrophils 4.0 Absolute Lymphocytes 1.0 Absolute Monocytes 0.5 Absolute Eosinophils 0.1 Absolute Basophils 0.0 Sodium 136.0 L Potassium 3.5 L Chloride 92 L Carbon Dioxide 40 H* Anion Gap 4 L BUN 14 Creatinine 0.82 Est GFR ( Amer) > 60 Est GFR (Non-Af Amer) > 60 Glucose 59 L Calcium 8.6 Magnesium 2.1 Total Bilirubin 0.9 AST 75 H ALT 88 H Alkaline Phosphatase 46 Total Protein 4.2 L Albumin 2.4 L 12/10/18 12/11/18 12/12/18 14:30 04:48 04:08 Troponin I 0.038 NT-Pro-B Natriuret Pep 8520 H 7630 H 8760 H 12/13/18 12/15/18 12/21/18 04:35 05:15 04:16 Troponin I NT-Pro-B Natriuret Pep 83622 H 6410 H 13719 H 12/23/18 01/04/19 06:30 20:00 Troponin I NT-Pro-B Natriuret Pep 37705 H 54214 H Impressions: Chest CT 12/20/18 00:00 IMPRESSION: Grossly stable appearance of the chest with small bilateral effusions, left greater than right and associated bibasilar consolidation, likely atelectasis. Patchy additional bilateral ground-glass opacities, likely infectious/inflammatory. Coronary atherosclerosis. Hepatic steatosis. Thoracentesis Ultrasound 12/23/18 09:52 IMPRESSION: SUCCESSFUL THORACENTESIS USING ULTRASOUND GUIDANCE. Chest X-Ray 01/04/19 00:00 IMPRESSION: Increasing airspace disease on the left. There is volume loss most consistent with atelectasis. There are bilateral pleural effusions left greater than right. Minimal right basilar airspace disease could represent asymmetric edema, pneumonia or atelectasis. Assessment and Plan - Diagnosis (1) Acute on chronic respiratory failure with hypoxia and hypercapnia Is this a current diagnosis for this admission?: Yes Plan: Significant improvement. Regularly 8% on 4.5 L nasal cannula. Likely exacerbated due to acute pulmonary edema caused by acute CHF exacerbation the setting of A. fib RVR. 01/04/2019. CXR showed bilateral pleural effusion and pulmonary edema. 01/04/2019 ABG showed pH of 7.40, PCO2 of 67 up from 39.9, PO2 of 57.7 down from 73.5. On 30% of oxygen. Continue started on BiPAP, DC diuretics due to low blood pressure. Discontinue Cardizem drip. Decrease beta-blockers, continue digoxin, hold diuresis due to low blood pressure. Volume restriction, cardiac diet. Daily weights. (2) CHF (congestive heart failure) Qualifiers: Heart failure type: combined systolic and diastolic Is this a current diagnosis for this admission?: No Plan: Combined systolic and diastolic dysfunction. Suboptimal echo. Denies history of CAD. Likely due to combination of A. fib and uncontrolled hypertension. Cardiac diet, strict in and out, fluid restriction daily weights. Diuretics guided by volume status and vitals. 11/15/2018. Weight 128.4 kg. 01/03/2019 weight 148 kg. 12/13/2018. 2D echo suboptimal quality. Left ventricular systolic function low normal. Mild concentric hypertrophy of left ventricle. Right ventricle moderately dilated. Left ventricle normal size. Left ventricular diastolic function could not be adequately assessed due to atrial fibrillation. BNP on admission 8520, 38874, 79405, 29260. Troponins on 12/10/2018 0.038. 12/24/2018. Albumin 2.0. 12/10/2018 AST 122, 12/24/2017 AST 43 07/19/2018. CT abdomen noncontrast liver, spleen, adrenals no identified significant masses. (3) Persistent hypotension Is this a current diagnosis for this admission?: Yes Plan: Hold diuretics. Decrease Cardizem and beta-blockers. SBP 120s 130s.HR 80s to 90s. DC Midodrin. 12/13/2018. 2D echo suboptimal quality. Left ventricular systolic function low normal. Mild concentric hypertrophy of left ventricle. Right ventricle moderately dilated. Left ventricle normal size. Left ventricular diastolic function could not be adequately assessed due to atrial fibrillation. BNP on admission 8520, 87754, 18924, 75148. Troponins on 12/10/2018 0.038. 12/24/2018. Albumin 2.0. 12/10/2018 AST 122, 12/24/2017 AST 43 07/19/2018. CT abdomen noncontrast liver, spleen, adrenals no identified significant masses. (4) Chronic a-fib Is this a current diagnosis for this admission?: Yes Plan: Controlled. Cardizem drip DC'd on 01/04/2019. Continue digoxin, metoprolol, Cardizem, aspirin and Eliquis. 12/13/2018. 2D echo suboptimal quality. Left ventricular systolic function low normal. Mild concentric hypertrophy of left ventricle. Right ventricle moderately dilated. Left ventricle normal size. Left ventricular diastolic function could not be adequately assessed due to atrial fibrillation. BNP on admission 8520, 33966, 64111, 30681. Troponins on 12/10/2018 0.038. (5) Healthcare-associated pneumonia Is this a current diagnosis for this admission?: Yes Plan: Resolved. Likely due to GNR or Staph aureus 12/19/2018 patient healthcare associated pneumonia treated with IV Zosyn, vancomycin and ceftriaxone. Currently asymptomatic. Afebrile. Pulmonary was consulted. (6) Hypocalcemia Is this a current diagnosis for this admission?: Yes Plan: Probably associated with his hypoalbuminemia. Continue calcium and vitamin D supplements. Has received IV albumin on 12/19/2018. (7) Opiate dependence due to chronic pain Is this a current diagnosis for this admission?: Yes Plan: Management per his primary care physician. (8) Pleural effusion Is this a current diagnosis for this admission?: Yes Plan: Likely due to his underlying CHF. Had a thoracentesis done by radiology on 12/23/2018. WBC 25, RBC 18, glucose 101, LDH 55, total protein 1.0. Pleural fluid culture and stains negative. (9) Acute kidney injury Is this a current diagnosis for this admission?: Yes Plan: Likely due to sepsis. Resolved. Creatinine within normal limits. Renal ultrasound negative for any acute abnormalities. 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 Diet and lifestyle modifications. (11) BPH (benign prostatic hyperplasia) Qualifiers: Lower urinary tract symptom detail: urinary frequency Is this a current diagnosis for this admission?: Yes Plan: Continue Tamsulosin. Outpatient urology follow-up. (12) COPD (chronic obstructive pulmonary disease) Qualifiers: COPD type: unspecified COPD Qualified Code(s): J44.9 - Chronic obstructive pulmonary disease, unspecified Is this a current diagnosis for this admission?: Yes Plan: DuoNeb's, BiPAP, steroids, incentive spirometry, flutter valve. Outpatient pulmonary follow-up
[2019-01-05] MEDS: DILTIAZEM HCL 30 MG TABLET PO SCH (22:41)
[2019-01-05] MEDS: GABAPENTIN 300 MG CAPSULE PO SCH (22:41)
[2019-01-06] MEDS ORDERED: OXYCODONE HCL SR 10 MG TABLET PO ONE (02:00)
[2019-01-06] MEDS: BUPROPION HCL 100 MG TABLET PO SCH ×3 (06:26→22:55)
[2019-01-06] MEDS: DILTIAZEM HCL 30 MG TABLET PO SCH ×3 (06:26→22:55)
[2019-01-06 06:57] LABS: ABSOLUTE EOSINOPHILS # (AUTO) 0.1 10^3/uL (0.0-0.6); ABSOLUTE LYMPHOCYTES (AUTO) 0.9 10^3/uL (0.5-4.7); ABSOLUTE MONOCYTES (AUTO) 0.4 10^3/uL (0.1-1.4); ABSOLUTE NEUT (AUTO) 3.5 10^3/uL (1.7-8.2); BASOPHILS % (AUTO) 0.3 % (0-2); EOSINOPHILS % (AUTO) 2.2 % (0-6); HEMATOCRIT 23.9 % (37.9-51.0); HEMOGLOBIN 8.3 g/dL (13.5-17.0); LYMPHOCYTES % (AUTO) 17.4 % (13-45); MEAN CORPUSCULAR HEMOGLOBIN 33.8 pg (27.0-33.4); MEAN CORPUSCULAR HGB CONC 34.8 g/dL (32.0-36.0); MEAN CORPUSCULAR VOLUME 97 fl (80-97); MONOCYTES % (AUTO) 8.3 % (3-13); PLATELET COUNT 164 10^3/uL (150-450); RED BLOOD COUNT 2.47 10^6/uL (4.35-5.55); RED CELL DISTRIBUTION WIDTH 17.8 % (11.5-14.0); SEGMENTED NEUTROPHILS % (AUTO) 71.8 % (42-78); TOTAL CELLS COUNTED % (AUTO) 100 %; WHITE BLOOD COUNT 4.9 10^3/uL (4.0-10.5)
[2019-01-06 06:58] LABS: ARTERIAL BLOOD BASE EXCESS 16.3 mmol/L; ARTERIAL BLOOD FIO2 2L; ARTERIAL BLOOD H2CO3 1.51 mmol/L (1.05-1.35); ARTERIAL BLOOD HCO3 40.7 mmol/L (20-24); ARTERIAL BLOOD O2 SATURATION 97.6 % (94-98); ARTERIAL BLOOD PCO2 50.1 mmHg (35-45); ARTERIAL BLOOD PH 7.53 (7.35-7.45); ARTERIAL BLOOD PO2 91.3 mmHg (80-100); ARTERIAL BLOOD TOTAL CO2 42.3 mmol/L (23-27)
[2019-01-06 07:16] LABS: ALANINE AMINOTRANSFERASE 77 U/L (21-72); ALBUMIN 2.4 g/dL (3.5-5.0); ALKALINE PHOSPHATASE 49 U/L (38-126); ASPARTATE AMINO TRANSFERASE 50 U/L (17-59); BILIRUBIN,DIRECT 0.3 mg/dL (0.0-0.4); BILIRUBIN,TOTAL 0.6 mg/dL (0.2-1.3); BLOOD UREA NITROGEN 16 mg/dL (7-20); CALCIUM 8.7 mg/dL (8.4-10.2); CHLORIDE 93 mmol/L (98-107); POTASSIUM 3.7 mmol/L (3.6-5.0); SODIUM 135.6 mmol/L (137-145); TOTAL PROTEIN 4.2 g/dL (6.3-8.2)
[2019-01-06 07:23] LABS: GLUCOSE 66 mg/dL (75-110)
[2019-01-06 07:25] LABS: CARBON DIOXIDE 40 mmol/L (22-30)
[2019-01-06 07:43] LABS: ANION GAP 3 (5-19)
[2019-01-06] MEDS: METOPROLOL TARTRATE 25 MG TABLET PO SCH (09:10)
[2019-01-06] MEDS: FINASTERIDE 5 MG TABLET PO SCH (09:10)
[2019-01-06] MEDS: DIGOXIN 0.125 MG TABLET PO SCH (09:11)
[2019-01-06] MEDS: LACTOBACILLUS ACIDOPHILUS 250 MG TAB PO SCH ×2 (09:11→18:14)
[2019-01-06] MEDS: MAGNESIUM OXIDE 400 MG TABLET PO SCH ×2 (09:11→18:14)
[2019-01-06] MEDS: PANTOPRAZOLE SODIUM 40 MG TABLET.DR PO SCH (09:11)
[2019-01-06] MEDS: APIXABAN 5 MG TABLET PO SCH ×2 (09:11→18:14)
[2019-01-06] MEDS: OXYCODONE HCL SR 10 MG TABLET PO SCH ×3 (09:12→23:01)
[2019-01-06] MEDS: POTASSIUM CHLORIDE 10 MEQ CAPSULE.ER PO SCH (09:12)
--- NOTE | 2019-01-06 14:26 | PDOC PROGRESS REPORT ---
Subjective Progress Note for:: 01/06/19 Subjective:: Raymond Dumont A 68 years old male with past medical history of chronic atrial fibrillation, coronary artery disease, COPD, hypertension and hypothyroidism presented with generalized weakness and diarrhea. Patient has been treated as a case of healthcare associated pneumonia with Zosyn and vancomycin. Of note patient was admitted in September 2018 for hypovolemic shock. His urine culture is positive for E. coli which is pansensitive and his blood culture grew gram-positive cocci in cluster which is identified as Staphylococcus, Auricularis which is pansensitive except for erythromycin. Zosyn and vancomycin discontinued and patient switched to ceftriaxone. Cu rrently off of antibiotics. He was hypotensive at admission and had been on Levophed which had been discontinued. Patient has had intermittent hypotension which has been treated with bolus of IV fluids and maintained with normal saline. Patient has been also on Solu-Cortef high-dose which is tapered down to 50 mg IV daily. He has been also getting midodrine and fludrocortisone. Currently his blood pressure is stable. Patient has been awaiting for placement. 01/03/2019. No acute events overnight. Denies any fever, chills, nausea, vomiting, diarrhea, constipation or any urinary symptoms. Concerned about not receiving any physical therapy while inpatient. He is anxious to be transferred to rehab where he can receive his physical therapy. 01/04/2019. Patient developed A. fib RVR this morning with severe respiratory distress and hypoxemia. Patient will start on IV Lasix, BiPAP significant improvement of his symptoms. Chest x-ray showed bilateral pleural effusion and pulmonary edema. ABG showed pH of 7.40, PCO2 of 67 up from 39.9, PO2 of 57.7 down from 73.5. On 30% of oxygen. Denies any chest pain, nausea, vomiting, diarrhea, constipation or any urinary symptoms. 01/05/2019. No acute events overnight. Respiratory symptom has improved significantly. Patient on nasal cannula upon encounter feeling that he is feeling much better than yesterday. Saturating 98% on 4.5 L, fluid balance of - 5632 significant improvement of his bilateral lower extremity edema. Denies any fever, chills, nausea, vomiting, diarrhea, constipation or any urinary symptoms. Patient blood pressure was dropping towards the evening BP of 82/44 asymptomatic. His diuretics were stopped, Cardizem PO and BB PO cut in 09/20. 01/06/2019. No acute events overnight. Significant improvement of his symptoms. ABG this morning PCO2 of 50.1, PO2 of 91.3 up from 57.7 on 01/04/2019. Patient's pressure drops to below 100 however asymptomatic. His medication will be reconciled. Lower extremity edema has improved significantly, his weight is 139.8 down from 148 on 01/02/2019. Denies any fever, chills, nausea, vomiting, diarrhea, constipation or any urinary symptoms. Reason For Visit: SEPSIS,[place],LLL PNA Physical Exam Vital Signs: Temp Pulse Resp BP Pulse Ox 97.7 F 65 18 88/52 L 93 01/06/19 11:24 01/06/19 11:24 01/06/19 11:24 01/06/19 11:24 01/06/19 11:24 Intake & Output 01/05/19 01/06/19 01/07/19 06:59 06:59 06:59 Intake Total 118 1658 100 Output Total 5750 1875 100 Balance -5632 -217 0 Weight 146.8 kg 139.8 kg General appearance: PRESENT: morbidly obese Head exam: PRESENT: atraumatic, normocephalic Respiratory exam: PRESENT: clear to auscultation almaz. ABSENT: rales, rhonchi, wheezes Cardiovascular exam: PRESENT: irregular rhythm, RRR. ABSENT: diastolic murmur, rubs, systolic murmur GI/Abdominal exam: PRESENT: normal bowel sounds, soft. ABSENT: distended, guarding, mass, organolmegaly, rebound, tenderness Extremities exam: PRESENT: +2 edema Neurological exam: PRESENT: alert, awake, oriented to person, oriented to place, oriented to time, oriented to situation, CN II-XII grossly intact. ABSENT: motor sensory deficit Results Laboratory Results: 01/06/19 06:20 01/06/19 06:20 01/06/19 01/06/19 01/06/19 06:20 06:20 06:20 WBC 4.9 RBC 2.47 L Hgb 8.3 L Hct 23.9 L MCV 97 MCH 33.8 H MCHC 34.8 RDW 17.8 H Plt Count 164 Seg Neutrophils % 71.8 Lymphocytes % 17.4 Monocytes % 8.3 Eosinophils % 2.2 Basophils % 0.3 Absolute Neutrophils 3.5 Absolute Lymphocytes 0.9 Absolute Monocytes 0.4 Absolute Eosinophils 0.1 Absolute Basophils 0.0 Carbonic Acid 1.51 H HCO3/H2CO3 Ratio 26:1 ABG pH 7.53 H ABG pCO2 50.1 H ABG pO2 91.3 ABG HCO3 40.7 H ABG O2 Saturation 97.6 ABG Base Excess 16.3 FiO2 2L Sodium 135.6 L Potassium 3.7 Chloride 93 L Carbon Dioxide 40 H* Anion Gap 3 L BUN 16 Creatinine 0.96 Est GFR ( Amer) > 60 Est GFR (Non-Af Amer) > 60 Glucose 66 L Calcium 8.7 Magnesium 2.2 Total Bilirubin 0.6 AST 50 ALT 77 H Alkaline Phosphatase 49 Total Protein 4.2 L Albumin 2.4 L 12/10/18 12/11/18 12/12/18 14:30 04:48 04:08 Troponin I 0.038 NT-Pro-B Natriuret Pep 8520 H 7630 H 8760 H 12/13/18 12/15/18 12/21/18 04:35 05:15 04:16 Troponin I NT-Pro-B Natriuret Pep 88501 H 6410 H 63904 H 12/23/18 01/04/19 06:30 20:00 Troponin I NT-Pro-B Natriuret Pep 40448 H 57060 H Impressions: Chest CT 12/20/18 00:00 IMPRESSION: Grossly stable appearance of the chest with small bilateral effusions, left greater than right and associated bibasilar consolidation, likely atelectasis. Patchy additional bilateral ground-glass opacities, likely infectious/inflammatory. Coronary atherosclerosis. Hepatic steatosis. Thoracentesis Ultrasound 12/23/18 09:52 IMPRESSION: SUCCESSFUL THORACENTESIS USING ULTRASOUND GUIDANCE. Chest X-Ray 01/04/19 00:00 IMPRESSION: Increasing airspace disease on the left. There is volume loss most consistent with atelectasis. There are bilateral pleural effusions left greater than right. Minimal right basilar airspace disease could represent asymmetric edema, pneumonia or atelectasis. Assessment and Plan - Diagnosis (1) Acute on chronic respiratory failure with hypoxia and hypercapnia Is this a current diagnosis for this admission?: Yes Plan: Significant improvement. Saturating 98% on 2 L NC. Likely exacerbated due to acute pulmonary edema caused by acute CHF exacerbation the setting of A. fib RVR. 01/04/2019. CXR showed bilateral pleural effusion and pulmonary edema. 01/04/2019 ABG pH of 7.40, PCO2 of 67 up from 39.9, PO2 of 57.7 down from 73.5. On 30% of oxygen. 01/06/2019 ABG. pH 7.53, PCO2 50.1, PO2 91.3. 2 L nasal cannula. Continue started on BiPAP, DC diuretics due to low blood pressure. Discontinue Cardizem drip. Decrease beta-blockers, continue digoxin, hold diuresis due to low blood pressure. Volume restriction, cardiac diet. Daily weights. (2) CHF (congestive heart failure) Qualifiers: Heart failure type: combined systolic and diastolic Is this a current diagnosis for this admission?: No Plan: Combined systolic and diastolic dysfunction. Suboptimal echo. Denies history of CAD. Likely due to combination of A. fib and uncontrolled hypertension. Cardiac diet, strict in and out, fluid restriction daily weights. Diuretics guided by volume status and vitals. 11/15/2018. Weight 128.4 kg. 01/03/2019 weight 148 kg. 12/13/2018. 2D echo suboptimal quality. Left ventricular systolic function low normal. Mild concentric hypertrophy of left ventricle. Right ventricle moderately dilated. Left ventricle normal size. Left ventricular diastolic function could not be adequately assessed due to atrial fibrillation. BNP on admission 8520, 97994, 78297, 74487. Troponins on 12/10/2018 0.038. 12/24/2018. Albumin 2.0. 12/10/2018 AST 122, 12/24/2017 AST 43 07/19/2018. CT abdomen noncontrast liver, spleen, adrenals no identified significant masses. (3) Persistent hypotension Is this a current diagnosis for this admission?: Yes Plan: Hold diuretics. Decrease Cardizem and beta-blockers. DC Midodrin. 12/13/2018. 2D echo suboptimal quality. Left ventricular systolic function low normal. Mild concentric hypertrophy of left ventricle. Right ventricle moderately dilated. Left ventricle normal size. Left ventricular diastolic function could not be adequately assessed due to atrial fibrillation. BNP on admission 8520, 88624, 27260, 53851. Troponins on 12/10/2018 0.038. 12/24/2018. Albumin 2.0. 12/10/2018 AST 122, 12/24/2017 AST 43 07/19/2018. CT abdomen noncontrast liver, spleen, adrenals no identified significant masses. (4) Chronic a-fib Is this a current diagnosis for this admission?: Yes Plan: Controlled. Cardizem drip DC'd on 01/04/2019. Continue digoxin, metoprolol, Cardizem, aspirin and Eliquis. 12/13/2018. 2D echo suboptimal quality. Left ventricular systolic function low normal. Mild concentric hypertrophy of left ventricle. Right ventricle moderately dilated. Left ventricle normal size. Left ventricular diastolic function could not be adequately assessed due to atrial fibrillation. BNP on admission 8520, 27672, 13357, 14842. Troponins on 12/10/2018 0.038. (5) Healthcare-associated pneumonia Is this a current diagnosis for this admission?: Yes Plan: Resolved. Likely due to GNR or Staph aureus 12/19/2018 patient healthcare associated pneumonia treated with IV Zosyn, vancomycin and ceftriaxone. Currently asymptomatic. Afebrile. Pulmonary was consulted. (6) Opiate dependence due to chronic pain Is this a current diagnosis for this admission?: Yes Plan: Management per his primary care physician. (7) Pleural effusion Is this a current diagnosis for this admission?: Yes Plan: Likely due to his underlying CHF. Had a thoracentesis done by radiology on 12/23/2018. WBC 25, RBC 18, glucose 101, LDH 55, total protein 1.0. Pleural fluid culture and stains negative. (8) Acute kidney injury Is this a current diagnosis for this admission?: Yes Plan: Likely due to sepsis. Resolved. Creatinine within normal limits. Renal ultrasound negative for any acute abnormalities. 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 Diet and lifestyle modifications. (10) BPH (benign prostatic hyperplasia) Qualifiers: Lower urinary tract symptom detail: urinary frequency Is this a current diagnosis for this admission?: Yes Plan: Continue Tamsulosin. Outpatient urology follow-up. (11) COPD (chronic obstructive pulmonary disease) Qualifiers: COPD type: unspecified COPD Qualified Code(s): J44.9 - Chronic obstructive pulmonary disease, unspecified Is this a current diagnosis for this admission?: Yes Plan: DuoNeb's, BiPAP, incentive spirometry, flutter valve. Outpatient pulmonary follow-up
[2019-01-06] MEDS ORDERED: METOPROLOL SUCCINATE 25 MG TAB.SR.24H PO SCH (15:30)
[2019-01-06] MEDS ORDERED: METOPROLOL TARTRATE 25 MG TABLET PO SCH (22:00)
[2019-01-06] MEDS: GABAPENTIN 300 MG CAPSULE PO SCH (22:55)
[2019-01-07] MEDS: BUPROPION HCL 100 MG TABLET PO SCH ×3 (06:32→22:41)
[2019-01-07] MEDS: DILTIAZEM HCL 30 MG TABLET PO SCH ×3 (06:33→22:40)
[2019-01-07 07:17] LABS: BLOOD UREA NITROGEN 20 mg/dL (7-20); CALCIUM 8.6 mg/dL (8.4-10.2); GLUCOSE 83 mg/dL (75-110); POTASSIUM 4.3 mmol/L (3.6-5.0)
[2019-01-07 07:22] LABS: CHLORIDE 92 mmol/L (98-107); SODIUM 136.1 mmol/L (137-145)
[2019-01-07 07:34] LABS: ANION GAP 4 (5-19)
[2019-01-07 07:35] LABS: CARBON DIOXIDE 40 mmol/L (22-30)
[2019-01-07] MEDS ORDERED: OXYCODONE HCL SR 10 MG TABLET PO PRN ×2 (09:06→09:45)
[2019-01-07] MEDS: APIXABAN 5 MG TABLET PO SCH ×2 (09:43→17:24)
[2019-01-07] MEDS: MAGNESIUM OXIDE 400 MG TABLET PO SCH ×2 (09:43→17:24)
[2019-01-07] MEDS: PANTOPRAZOLE SODIUM 40 MG TABLET.DR PO SCH (09:44)
[2019-01-07] MEDS: FINASTERIDE 5 MG TABLET PO SCH (09:44)
[2019-01-07] MEDS: LACTOBACILLUS ACIDOPHILUS 250 MG TAB PO SCH ×2 (09:44→17:23)
[2019-01-07] MEDS: POTASSIUM CHLORIDE 10 MEQ CAPSULE.ER PO SCH (09:44)
[2019-01-07] MEDS ORDERED: MIDODRINE HCL 5 MG TABLET PO SCH (10:00)
[2019-01-07] MEDS: FUROSEMIDE INJ/PF 20 MG/2 ML SDV IV SCH ×2 (10:42→22:41)
[2019-01-07] MEDS: DIGOXIN 0.125 MG TABLET PO SCH (10:44)
--- NOTE | 2019-01-07 10:57 | PDOC PROGRESS REPORT ---
Subjective Progress Note for:: 01/07/19 Subjective:: Raymond Dumont A 68 years old male with past medical history of chronic atrial fibrillation, coronary artery disease, COPD, hypertension and hypothyroidism presented with generalized weakness and diarrhea. Patient has been treated as a case of healthcare associated pneumonia with Zosyn and vancomycin. Of note patient was admitted in September 2018 for hypovolemic shock. His urine culture is positive for E. coli which is pansensitive and his blood culture grew gram-positive cocci in cluster which is identified as Staphylococcus, Auricularis which is pansensitive except for erythromycin. Zosyn and vancomycin discontinued and patient switched to ceftriaxone. Cu rrently off of antibiotics. He was hypotensive at admission and had been on Levophed which had been discontinued. Patient has had intermittent hypotension which has been treated with bolus of IV fluids and maintained with normal saline. Patient has been also on Solu-Cortef high-dose which is tapered down to 50 mg IV daily. He has been also getting midodrine and fludrocortisone. Currently his blood pressure is stable. Patient has been awaiting for placement. 01/03/2019. No acute events overnight. Denies any fever, chills, nausea, vomiting, diarrhea, constipation or any urinary symptoms. Concerned about not receiving any physical therapy while inpatient. He is anxious to be transferred to rehab where he can receive his physical therapy. 01/04/2019. Patient developed A. fib RVR this morning with severe respiratory distress and hypoxemia. Patient will start on IV Lasix, BiPAP significant improvement of his symptoms. Chest x-ray showed bilateral pleural effusion and pulmonary edema. ABG showed pH of 7.40, PCO2 of 67 up from 39.9, PO2 of 57.7 down from 73.5. On 30% of oxygen. Denies any chest pain, nausea, vomiting, diarrhea, constipation or any urinary symptoms. 01/05/2019. No acute events overnight. Respiratory symptom has improved significantly. Patient on nasal cannula upon encounter feeling that he is feeling much better than yesterday. Saturating 98% on 4.5 L, fluid balance of - 5632 significant improvement of his bilateral lower extremity edema. Denies any fever, chills, nausea, vomiting, diarrhea, constipation or any urinary symptoms. Patient blood pressure was dropping towards the evening BP of 82/44 asymptomatic. His diuretics were stopped, Cardizem PO and BB PO cut in 09/20. 01/06/2019. No acute events overnight. Significant improvement of his symptoms. ABG this morning PCO2 of 50.1, PO2 of 91.3 up from 57.7 on 01/04/2019. Patient's pressure drops to below 100 however asymptomatic. His medication will be reconciled. Lower extremity edema has improved significantly, his weight is 139.8 down from 148 on 01/02/2019. Denies any fever, chills, nausea, vomiting, diarrhea, constipation or any urinary symptoms. 01/07/2019. Patient had one episode of confusion overnight otherwise no acute events, systolic blood pressure has been maintained in low 100s, but got the patient stating that he is feeling weak otherwise does not have any complaints, denies any fever, chills, nausea, vomiting, diarrhea, constipation or any urinary symptoms. He is on a high-dose OxyContin which may have had to do with his low BP and which may have contributed to his low BP. His lower extremity edema is improving but not significantly since furosemide h ad to be stopped due to hypotension. We will decrease OxyContin and make it as needed, restart furosemide IV twice daily as well as midodrine 5 mg p.o. 3 times daily. Midodrine can be DC'd if his blood pressure is maintained. Reason For Visit: SEPSIS,[place],LLL PNA Physical Exam Vital Signs: Temp Pulse Resp BP Pulse Ox 98.7 F 92 16 100/67 94 01/07/19 07:32 01/07/19 07:32 01/07/19 08:15 01/07/19 07:32 01/07/19 08:15 Intake & Output 01/06/19 01/07/19 01/08/19 06:59 06:59 06:59 Intake Total 1658 593 Output Total 1875 700 Balance -217 -107 Weight 139.8 kg 139.7 kg General appearance: PRESENT: no acute distress, morbidly obese, well-developed, well-nourished Respiratory exam: PRESENT: clear to auscultation almaz. ABSENT: rales, rhonchi, wheezes Cardiovascular exam: PRESENT: RRR. ABSENT: diastolic murmur, rubs, systolic murmur GI/Abdominal exam: PRESENT: normal bowel sounds, soft. ABSENT: distended, guarding, mass, organolmegaly, rebound, tenderness Extremities exam: PRESENT: +2 edema Neurological exam: PRESENT: alert, awake, oriented to person, oriented to place, oriented to time, oriented to situation, CN II-XII grossly intact. ABSENT: motor sensory deficit Results Laboratory Results: 01/06/19 06:20 01/07/19 06:35 01/07/19 06:35 Sodium 136.1 L Potassium 4.3 Chloride 92 L Carbon Dioxide 40 H* Anion Gap 4 L BUN 20 Creatinine 0.96 Est GFR ( Amer) > 60 Est GFR (Non-Af Amer) > 60 Glucose 83 Calcium 8.6 12/10/18 12/11/18 12/12/18 14:30 04:48 04:08 Troponin I 0.038 NT-Pro-B Natriuret Pep 8520 H 7630 H 8760 H 12/13/18 12/15/18 12/21/18 04:35 05:15 04:16 Troponin I NT-Pro-B Natriuret Pep 15209 H 6410 H 58550 H 12/23/18 01/04/19 06:30 20:00 Troponin I NT-Pro-B Natriuret Pep 60932 H 00182 H Impressions: Chest CT 12/20/18 00:00 IMPRESSION: Grossly stable appearance of the chest with small bilateral effusions, left greater than right and associated bibasilar consolidation, likely atelectasis. Patchy additional bilateral ground-glass opacities, likely infectious/inflammatory. Coronary atherosclerosis. Hepatic steatosis. Thoracentesis Ultrasound 12/23/18 09:52 IMPRESSION: SUCCESSFUL THORACENTESIS USING ULTRASOUND GUIDANCE. Chest X-Ray 01/04/19 00:00 IMPRESSION: Increasing airspace disease on the left. There is volume loss most consistent with atelectasis. There are bilateral pleural effusions left greater than right. Minimal right basilar airspace disease could represent asymmetric edema, pneumonia or atelectasis. Assessment and Plan - Diagnosis (1) Acute on chronic respiratory failure with hypoxia and hypercapnia Is this a current diagnosis for this admission?: Yes Plan: Significant improvement. Saturating 98% on 2 L NC. Likely exacerbated due to acute pulmonary edema caused by acute CHF exacerbation the setting of A. fib RVR. 01/04/2019. CXR showed bilateral pleural effusion and pulmonary edema. 01/04/2019 ABG pH of 7.40, PCO2 of 67 up from 39.9, PO2 of 57.7 down from 73.5. On 30% of oxygen. 01/06/2019 ABG. pH 7.53, PCO2 50.1, PO2 91.3. 2 L nasal cannula. Continue started on BiPAP, DC diuretics due to low blood pressure. Discontinue Cardizem drip. Decrease beta-blockers, continue digoxin, restarted Lasix guided by BP. Volume restriction, cardiac diet. Daily weights. He is on a high-dose OxyContin which may have had to do with his low BP and which may have contributed to his low BP. His lower extremity edema is improving but not significantly since furosemide had to be stopped due to hypotension. We will decrease OxyContin and make it as needed, restart furosemide IV twice daily as well as midodrine 5 mg p.o. 3 times daily. Midodrine can be DC'd if his blood pressure is maintained. (2) CHF (congestive heart failure) Qualifiers: Heart failure type: combined systolic and diastolic Is this a current diagnosis for this admission?: No Plan: Combined systolic and diastolic dysfunction. Suboptimal echo. Denies history of CAD. Likely due to combination of A. fib and uncontrolled hypertension. Cardiac diet, strict in and out, fluid restriction daily weights, maintain negative fluid balance. Diuretics guided by volume status and vitals. 11/15/2018. Weight 128.4 kg. 01/07/2019. Weight 139 kg down from 148 kg on 12/24/2018. 12/13/2018. 2D echo suboptimal quality. Left ventricular systolic function low normal. Mild concentric hypertrophy of left ventricle. Right ventricle moderately dilated. Left ventricle normal size. Left ventricular diastolic function could not be adequately assessed due to atrial fibrillation. BNP on admission 8520, 95860, 21069, 83178. Troponins on 12/10/2018 0.038. 12/24/2018. Albumin 2.0. Been receiving IV albumin. High-protein diet. 12/10/2018 AST 122, 12/24/2017 AST 43 07/19/2018. CT abdomen noncontrast liver, spleen, adrenals no identified significant masses. (3) Persistent hypotension Is this a current diagnosis for this admission?: Yes Plan: Restart Midodrine. Decrease Cardizem and beta-blockers. 12/13/2018. 2D echo suboptimal quality. Left ventricular systolic function low normal. Mild concentric hypertrophy of left ventricle. Right ventricle moderately dilated. Left ventricle normal size. Left ventricular diastolic fun ction could not be adequately assessed due to atrial fibrillation. BNP on admission 8520, 42826, 73270, 19488. Troponins on 12/10/2018 0.038. 12/24/2018. Albumin 2.0. 12/10/2018 AST 122, 12/24/2017 AST 43 07/19/2018. CT abdomen noncontrast liver, spleen, adrenals no identified significant masses. He is on a high-dose OxyContin which may have had to do with his low BP and which may have contributed to his low BP. His lower extremity edema is improving but not significantly since furosemide had to be stopped due to hypotension. We will decrease OxyContin and make it as needed, restart furosemide IV twice daily as well as midodrine 5 mg p.o. 3 times daily. Midodrine can be DC'd if his blood pressure is maintained. (4) Chronic a-fib Is this a current diagnosis for this admission?: Yes Plan: Controlled. Cardizem drip DC'd on 01/04/2019. Continue digoxin, metoprolol, Cardizem, aspirin and Eliquis. 12/13/2018. 2D echo suboptimal quality. Left ventricular systolic function low normal. Mild concentric hypertrophy of left ventricle. Right ventricle moderately dilated. Left ventricle normal size. Left ventricular diastolic function could not be adequately assessed due to atrial fibrillation. BNP on admission 8520, 25578, 42275, 58810. Troponins on 12/10/2018 0.038. (5) Healthcare-associated pneumonia Is this a current diagnosis for this admission?: Yes Plan: Resolved. Likely due to GNR or Staph aureus 12/19/2018 patient healthcare associated pneumonia treated with IV Zosyn, vancomycin and ceftriaxone. Currently asymptomatic. Afebrile. Pulmonary was consulted. (6) Opiate dependence due to chronic pain Is this a current diagnosis for this admission?: Yes Plan: Management per his primary care physician. He is on a high-dose OxyContin which may have had to do with his low BP and which may have contributed to his low BP. His lower extremity edema is improving but not significantly since furosemide had to be stopped due to hypotension. We will decrease OxyContin and make it as needed, restart furosemide IV twice daily as well as midodrine 5 mg p.o. 3 times daily. Midodrine can be DC'd if his blood pressure is maintained. (7) Pleural effusion Is this a current diagnosis for this admission?: Yes Plan: Likely due to his underlying CHF. Had a thoracentesis done by radiology on 12/23/2018. WBC 25, RBC 18, glucose 101, LDH 55, total protein 1.0. Pleural fluid culture and stains negative. (8) Acute kidney injury Is this a current diagnosis for this admission?: Yes Plan: Likely due to sepsis. Resolved. Creatinine within normal limits. Renal ultrasound negative for any acute abnormalities. 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 Diet and lifestyle modifications. (10) BPH (benign prostatic hyperplasia) Qualifiers: Lower urinary tract symptom detail: urinary frequency Is this a current diagnosis for this admission?: Yes Plan: Continue Tamsulosin and finasteride. Outpatient urology follow-up. (11) COPD (chronic obstructive pulmonary disease) Qualifiers: COPD type: unspecified COPD Qualified Code(s): J44.9 - Chronic obstructive pulmonary disease, unspecified Is this a current diagnosis for this admission?: Yes Plan: DuoNeb's, BiPAP, incentive spirometry, flutter valve. Outpatient pulmonary follow-up
[2019-01-07] MEDS: MIDODRINE HCL 5 MG TABLET PO SCH ×2 (13:31→17:20)
[2019-01-07] MEDS: GABAPENTIN 300 MG CAPSULE PO SCH (22:40)
[2019-01-08] MEDS: DILTIAZEM HCL 30 MG TABLET PO SCH (06:18)
[2019-01-08] MEDS: BUPROPION HCL 100 MG TABLET PO SCH ×3 (06:19→21:21)
[2019-01-08 06:56] LABS: ARTERIAL BLOOD BASE EXCESS 12.2 mmol/L; ARTERIAL BLOOD H2CO3 1.58 mmol/L (1.05-1.35); ARTERIAL BLOOD HCO3 37.3 mmol/L (20-24); ARTERIAL BLOOD O2 SATURATION 95.2 % (94-98); ARTERIAL BLOOD PCO2 52.5 mmHg (35-45); ARTERIAL BLOOD PH 7.47 (7.35-7.45); ARTERIAL BLOOD PO2 72.9 mmHg (80-100); ARTERIAL BLOOD TOTAL CO2 38.9 mmol/L (23-27)
[2019-01-08 06:57] LABS: ARTERIAL BLOOD FIO2 FLOW RATE 3
[2019-01-08] MEDS ORDERED: DICYCLOMINE HCL 20 MG TABLET PO PRN (08:20)
[2019-01-08] MEDS: MIDODRINE HCL 5 MG TABLET PO SCH ×4 (08:21→18:27)
[2019-01-08] MEDS: PANTOPRAZOLE SODIUM 40 MG TABLET.DR PO SCH (08:21)
[2019-01-08] MEDS: DIGOXIN 0.125 MG TABLET PO SCH (09:09)
[2019-01-08] MEDS: FINASTERIDE 5 MG TABLET PO SCH (09:09)
[2019-01-08] MEDS: MAGNESIUM OXIDE 400 MG TABLET PO SCH ×2 (09:09→17:38)
[2019-01-08] MEDS: APIXABAN 5 MG TABLET PO SCH ×2 (09:09→17:38)
[2019-01-08] MEDS: LACTOBACILLUS ACIDOPHILUS 250 MG TAB PO SCH ×2 (09:09→17:37)
[2019-01-08] MEDS: FUROSEMIDE INJ/PF 20 MG/2 ML SDV IV SCH ×2 (09:09→21:21)
[2019-01-08] MEDS: DILTIAZEM HCL 120 MG CAP.SR.24H PO SCH (09:10)
--- NOTE | 2019-01-08 11:10 | PDOC PROGRESS REPORT ---
Subjective Progress Note for:: 01/08/19 Subjective:: Raymond Dumont A 68 years old male with past medical history of chronic atrial fibrillation, coronary artery disease, COPD, hypertension and hypothyroidism presented with generalized weakness and diarrhea. Patient has been treated as a case of healthcare associated pneumonia with Zosyn and vancomycin. Of note patient was admitted in September 2018 for hypovolemic shock. His urine culture is positive for E. coli which is pansensitive and his blood culture grew gram-positive cocci in cluster which is identified as Staphylococcus, Auricularis which is pansensitive except for erythromycin. Zosyn and vancomycin discontinued and patient switched to ceftriaxone. Cu rrently off of antibiotics. He was hypotensive at admission and had been on Levophed which had been discontinued. Patient has had intermittent hypotension which has been treated with bolus of IV fluids and maintained with normal saline. Patient has been also on Solu-Cortef high-dose which is tapered down to 50 mg IV daily. He has been also getting midodrine and fludrocortisone. Currently his blood pressure is stable. Patient has been awaiting for placement. 01/03/2019. No acute events overnight. Denies any fever, chills, nausea, vomiting, diarrhea, constipation or any urinary symptoms. Concerned about not receiving any physical therapy while inpatient. He is anxious to be transferred to rehab where he can receive his physical therapy. 01/04/2019. Patient developed A. fib RVR this morning with severe respiratory distress and hypoxemia. Patient will start on IV Lasix, BiPAP significant improvement of his symptoms. Chest x-ray showed bilateral pleural effusion and pulmonary edema. ABG showed pH of 7.40, PCO2 of 67 up from 39.9, PO2 of 57.7 down from 73.5. On 30% of oxygen. Denies any chest pain, nausea, vomiting, diarrhea, constipation or any urinary symptoms. 01/05/2019. No acute events overnight. Respiratory symptom has improved significantly. Patient on nasal cannula upon encounter feeling that he is feeling much better than yesterday. Saturating 98% on 4.5 L, fluid balance of - 5632 significant improvement of his bilateral lower extremity edema. Denies any fever, chills, nausea, vomiting, diarrhea, constipation or any urinary symptoms. Patient blood pressure was dropping towards the evening BP of 82/44 asymptomatic. His diuretics were stopped, Cardizem PO and BB PO cut in 09/20. 01/06/2019. No acute events overnight. Significant improvement of his symptoms. ABG this morning PCO2 of 50.1, PO2 of 91.3 up from 57.7 on 01/04/2019. Patient's pressure drops to below 100 however asymptomatic. His medication will be reconciled. Lower extremity edema has improved significantly, his weight is 139.8 down from 148 on 01/02/2019. Denies any fever, chills, nausea, vomiting, diarrhea, constipation or any urinary symptoms. 01/07/2019. Patient had one episode of confusion overnight otherwise no acute events, systolic blood pressure has been maintained in low 100s, but got the patient stating that he is feeling weak otherwise does not have any complaints, denies any fever, chills, nausea, vomiting, diarrhea, constipation or any urinary symptoms. He is on a high-dose OxyContin which may have had to do with his low BP and which may have contributed to his low BP. His lower extremity edema is improving but not significantly since furosemide h ad to be stopped due to hypotension. We will decrease OxyContin and make it as needed, restart furosemide IV twice daily as well as midodrine 5 mg p.o. 3 times daily. Midodrine can be DC'd if his blood pressure is maintained. 01/08/2019. No acute events overnight, bp has been maintained in the normal ranges. He denies any fever, chills, nausea, vomiting, diarrhea, constipation or any urinary symptoms. Reason For Visit: SEPSIS,[place],LLL PNA Physical Exam Vital Signs: Temp Pulse Resp BP Pulse Ox 97.6 F 85 16 112/51 L 98 01/08/19 07:44 01/08/19 07:44 01/08/19 07:44 01/08/19 07:44 01/08/19 07:44 Intake & Output 01/07/19 01/08/19 01/09/19 06:59 06:59 06:59 Intake Total 593 645 Output Total 250 0445 Balance -107 -1120 Weight 139.7 kg 142.5 kg General appearance: PRESENT: no acute distress Head exam: PRESENT: atraumatic, normocephalic Respiratory exam: PRESENT: clear to auscultation almaz. ABSENT: rales, rhonchi, wheezes Cardiovascular exam: PRESENT: RRR. ABSENT: diastolic murmur, rubs, systolic murmur GI/Abdominal exam: PRESENT: normal bowel sounds, soft. ABSENT: distended, guarding, mass, organolmegaly, rebound, tenderness Extremities exam: PRESENT: +2 edema Neurological exam: PRESENT: alert, awake, oriented to person, oriented to place, oriented to time, oriented to situation, CN II-XII grossly intact. ABSENT: motor sensory deficit Results Laboratory Results: 01/06/19 06:20 01/07/19 06:35 01/08/19 06:00 Carbonic Acid 1.58 H HCO3/H2CO3 Ratio 23:1 ABG pH 7.47 H ABG pCO2 52.5 H ABG pO2 72.9 L ABG HCO3 37.3 H ABG O2 Saturation 95.2 ABG Base Excess 12.2 FiO2 FLOW RATE 3 12/10/18 12/11/18 12/12/18 14:30 04:48 04:08 Troponin I 0.038 NT-Pro-B Natriuret Pep 8520 H 7630 H 8760 H 12/13/18 12/15/18 12/21/18 04:35 05:15 04:16 Troponin I NT-Pro-B Natriuret Pep 65816 H 6410 H 26741 H 12/23/18 01/04/19 06:30 20:00 Troponin I NT-Pro-B Natriuret Pep 58043 H 26723 H Impressions: Chest CT 12/20/18 00:00 IMPRESSION: Grossly stable appearance of the chest with small bilateral effusio ns, left greater than right and associated bibasilar consolidation, likely atelectasis. Patchy additional bilateral ground-glass opacities, likely infectious/inflammatory. Coronary atherosclerosis. Hepatic steatosis. Thoracentesis Ultrasound 12/23/18 09:52 IMPRESSION: SUCCESSFUL THORACENTESIS USING ULTRASOUND GUIDANCE. Chest X-Ray 01/04/19 00:00 IMPRESSION: Increasing airspace disease on the left. There is volume loss most consistent with atelectasis. There are bilateral pleural effusions left greater than right. Minimal right basilar airspace disease could represent asymmetric edema, pneumonia or atelectasis. Assessment and Plan - Diagnosis (1) Acute on chronic respiratory failure with hypoxia and hypercapnia Is this a current diagnosis for this admission?: Yes Plan: Significant improvement. Saturating 98% on 3 L NC. Likely exacerbated due to acute pulmonary edema caused by acute CHF exacerbation the setting of A. fib RVR. 01/04/2019. CXR showed bilateral pleural effusion and pulmonary edema. 01/04/2019 ABG pH of 7.40, PCO2 of 67 up from 39.9, PO2 of 57.7 down from 73.5. On 30% of oxygen. 01/06/2019 ABG. pH 7.53, PCO2 50.1, PO2 91.3. 2 L nasal cannula. Continue started on BiPAP, DC diuretics due to low blood pressure. Discontinue Cardizem drip. Decrease beta-blockers, continue digoxin, restarted Lasix guided by BP. Volume restriction, cardiac diet. Daily weights. He is on a high-dose OxyContin which may have had to do with his low BP and which may have contributed to his low BP. His lower extremity edema is improving but not significantly since furosemide had to be stopped due to hypotension. We will decrease OxyContin and make it as needed, restart furosemide IV twice daily as well as midodrine 5 mg p.o. 3 times daily. Midodrine can be DC'd if his blood pressure is maintained. (2) CHF (congestive heart failure) Qualifiers: Heart failure type: combined systolic and diastolic Is this a current diagnosis for this admission?: No Plan: Combined systolic and diastolic dysfunction. Suboptimal echo. Denies history of CAD. Likely due to combination of A. fib and uncontrolled hypertension. Cardiac diet, strict in and out, fluid restriction daily weights, maintain ne gative fluid balance. Diuretics guided by volume status and vitals. 11/15/2018. Weight 128.4 kg. 01/07/2019. Weight 137 kg down from 148 kg on 12/24/2018. 12/13/2018. 2D echo suboptimal quality. Left ventricular systolic function low normal. Mild concentric hypertrophy of left ventricle. Right ventricle moderately dilated. Left ventricle normal size. Left ventricular diastolic function could not be adequately assessed due to atrial fibrillation. BNP on admission 8520, 74879, 74709, 30812. Troponins on 12/10/2018 0.038. 12/24/2018. Albumin 2.0. Been receiving IV albumin. High-protein diet. 12/10/2018 AST 122, 12/24/2017 AST 43 07/19/2018. CT abdomen noncontrast liver, spleen, adrenals no identified significant masses. (3) Persistent hypotension Is this a current diagnosis for this admission?: Yes Plan: Improved. Restart Midodrine. Decrease Cardizem and beta-blockers. 12/13/2018. 2D echo suboptimal quality. Left ventricular systolic function low normal. Mild concentric hypertrophy of left ventricle. Right ventricle moderately dilated. Left ventricle normal size. Left ventricular diastolic function could not be adequately assessed due to atrial fibrillation. BNP on admission 8520, 06648, 08929, 06934. Troponins on 12/10/2018 0.038. 12/24/2018. Albumin 2.0. 12/10/2018 AST 122, 12/24/2017 AST 43 07/19/2018. CT abdomen noncontrast liver, spleen, adrenals no identified significant masses. He is on a high-dose OxyContin which may have had to do with his low BP and which may have contributed to his low BP. His lower extremity edema is improving but not significantly since furosemide had to be stopped due to hypotension. We will decrease OxyContin and make it as needed, restart furosemide IV twice daily as well as midodrine 5 mg p.o. 3 times daily. Midodrine can be DC'd if his blood pressure is maintained. (4) Chronic a-fib Is this a current diagnosis for this admission?: Yes Plan: Controlled. Cardizem drip DC'd on 01/04/2019. Continue digoxin, metoprolol, Cardizem, aspirin and Eliquis. 12/13/2018. 2D echo suboptimal quality. Left ventricular systolic function low normal. Mild concentric hypertrophy of left ventricle. Right ventricle moderately dilated. Left ventricle normal size. Left ventricular diastolic function could not be adequately assessed due to atrial fibrillation. BNP on admission 8520, 27909, 92732, 59428. Troponins on 12/10/2018 0.038. (5) Healthcare-associated pneumonia Is this a current diagnosis for this admission?: Yes Plan: Resolved. Likely due to GNR or Staph aureus 12/19/2018 patient healthcare associated pneumonia treated with IV Zosyn, vancomycin and ceftriaxone. Currently asymptomatic. Afebrile. Pulmonary was consulted. (6) Opiate dependence due to chronic pain Is this a current diagnosis for this admission?: Yes Plan: Management per his primary care physician. He is on a high-dose OxyContin which may have had to do with his low BP and which may have contributed to his low BP. His lower extremity edema is improving but not significantly since furosemide had to be stopped due to hypotension. We will decrease OxyContin and make it as needed, restart furosemide IV twice daily as well as midodrine 5 mg p.o. 3 times daily. Midodrine can be DC'd if his blood pressure is maintained. (7) Pleural effusion Is this a current diagnosis for this admission?: Yes Plan: Likely due to his underlying CHF. Had a thoracentesis done by radiology on 12/23/2018. WBC 25, RBC 18, glucose 101, LDH 55, total protein 1.0. Pleural fluid culture and stains negative. (8) Acute kidney injury Is this a current diagnosis for this admission?: Yes Plan: Likely due to sepsis. Resolved. Creatinine within normal limits. Renal ultrasound negative for any acute abnormalities. 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 Diet and lifestyle modifications. (10) BPH (benign prostatic hyperplasia) Qualifiers: Lower urinary tract symptom detail: urinary frequency Is this a current diagnosis for this admission?: Yes Plan: Continue Tamsulosin and finasteride. Outpatient urology follow-up. (11) COPD (chronic obstructive pulmonary disease) Qualifiers: COPD type: unspecified COPD Qualified Code(s): J44.9 - Chronic obstructive pulmonary disease, unspecified Is this a current diagnosis for this admission?: Yes Plan: DuoNeb's, BiPAP, incentive spirometry, flutter valve. Outpatient pulmonary follow-up
[2019-01-08] MEDS: OXYCODONE HCL SR 10 MG TABLET PO SCH ×2 (13:15→17:46)
[2019-01-08] MEDS: GABAPENTIN 300 MG CAPSULE PO SCH (21:21)
[2019-01-09] MEDS: OXYCODONE HCL SR 10 MG TABLET PO SCH ×3 (01:01→22:27)
[2019-01-09] MEDS: BUPROPION HCL 100 MG TABLET PO SCH ×3 (05:57→22:27)
[2019-01-09 07:12] LABS: ANION GAP 5 (5-19); BLOOD UREA NITROGEN 19 mg/dL (7-20); CALCIUM 8.1 mg/dL (8.4-10.2); CARBON DIOXIDE 37 mmol/L (22-30); CHLORIDE 93 mmol/L (98-107); POTASSIUM 3.9 mmol/L (3.6-5.0)
[2019-01-09] MEDS: PANTOPRAZOLE SODIUM 40 MG TABLET.DR PO SCH (07:55)
[2019-01-09] MEDS: MIDODRINE HCL 5 MG TABLET PO SCH ×4 (08:19→15:59)
[2019-01-09] MEDS ORDERED: NYSTATIN TOPICAL POWDER 15 GM TP ONE (08:30)
[2019-01-09 08:31] LABS: GLUCOSE 68 mg/dL (75-110)
[2019-01-09] MEDS: FUROSEMIDE 20 MG TABLET PO SCH ×2 (09:48→19:38)
[2019-01-09] MEDS: APIXABAN 5 MG TABLET PO SCH ×2 (09:48→17:33)
[2019-01-09] MEDS: LACTOBACILLUS ACIDOPHILUS 250 MG TAB PO SCH ×2 (09:48→17:33)
[2019-01-09] MEDS: MAGNESIUM OXIDE 400 MG TABLET PO SCH ×2 (09:49→17:33)
[2019-01-09] MEDS: FINASTERIDE 5 MG TABLET PO SCH (09:49)
[2019-01-09] MEDS: DILTIAZEM HCL 120 MG CAP.SR.24H PO SCH (09:49)
[2019-01-09] MEDS: DIGOXIN 0.125 MG TABLET PO SCH (09:49)
[2019-01-09] MEDS ORDERED: FUROSEMIDE 20 MG TABLET PO SCH (10:00)
[2019-01-09] MEDS ORDERED: DEXTROSE 40% GEL 15 GM TUBE PO PRN ×2 (12:37)
[2019-01-09] MEDS ORDERED: GLUCAGON,HUMAN RECOMB 1 MG INJ IM PRN (12:37)
[2019-01-09] MEDS ORDERED: DEXTROSE 50%-WATER 25 GM/50 ML DISP.SYRIN IV PRN ×2 (12:37)
--- NOTE | 2019-01-09 12:37 | PDOC PROGRESS REPORT ---
Subjective Progress Note for:: 01/09/19 Subjective:: Raymond Dumont A 68 years old male with past medical history of chronic atrial fibrillation, coronary artery disease, COPD, hypertension and hypothyroidism presented with generalized weakness and diarrhea. Patient has been treated as a case of healthcare associated pneumonia with Zosyn and vancomycin. Of note patient was admitted in September 2018 for hypovolemic shock. His urine culture is positive for E. coli which is pansensitive and his blood culture grew gram-positive cocci in cluster which is identified as Staphylococcus, Auricularis which is pansensitive except for erythromycin. Zosyn and vancomycin discontinued and patient switched to ceftriaxone. Cu rrently off of antibiotics. He was hypotensive at admission and had been on Levophed which had been discontinued. Patient has had intermittent hypotension which has been treated with bolus of IV fluids and maintained with normal saline. Patient has been also on Solu-Cortef high-dose which is tapered down to 50 mg IV daily. He has been also getting midodrine and fludrocortisone. Currently his blood pressure is stable. Patient has been awaiting for placement. 01/03/2019. No acute events overnight. Denies any fever, chills, nausea, vomiting, diarrhea, constipation or any urinary symptoms. Concerned about not receiving any physical therapy while inpatient. He is anxious to be transferred to rehab where he can receive his physical therapy. 01/04/2019. Patient developed A. fib RVR this morning with severe respiratory distress and hypoxemia. Patient will start on IV Lasix, BiPAP significant improvement of his symptoms. Chest x-ray showed bilateral pleural effusion and pulmonary edema. ABG showed pH of 7.40, PCO2 of 67 up from 39.9, PO2 of 57.7 down from 73.5. On 30% of oxygen. Denies any chest pain, nausea, vomiting, diarrhea, constipation or any urinary symptoms. 01/05/2019. No acute events overnight. Respiratory symptom has improved significantly. Patient on nasal cannula upon encounter feeling that he is feeling much better than yesterday. Saturating 98% on 4.5 L, fluid balance of - 5632 significant improvement of his bilateral lower extremity edema. Denies any fever, chills, nausea, vomiting, diarrhea, constipation or any urinary symptoms. Patient blood pressure was dropping towards the evening BP of 82/44 asymptomatic. His diuretics were stopped, Cardizem PO and BB PO cut in 09/20. 01/06/2019. No acute events overnight. Significant improvement of his symptoms. ABG this morning PCO2 of 50.1, PO2 of 91.3 up from 57.7 on 01/04/2019. Patient's pressure drops to below 100 however asymptomatic. His medication will be reconciled. Lower extremity edema has improved significantly, his weight is 139.8 down from 148 on 01/02/2019. Denies any fever, chills, nausea, vomiting, diarrhea, constipation or any urinary symptoms. 01/07/2019. Patient had one episode of confusion overnight otherwise no acute events, systolic blood pressure has been maintained in low 100s, but got the patient stating that he is feeling weak otherwise does not have any complaints, denies any fever, chills, nausea, vomiting, diarrhea, constipation or any urinary symptoms. He is on a high-dose OxyContin which may have had to do with his low BP and which may have contributed to his low BP. His lower extremity edema is improving but not significantly since furosemide h ad to be stopped due to hypotension. We will decrease OxyContin and make it as needed, restart furosemide IV twice daily as well as midodrine 5 mg p.o. 3 times daily. Midodrine can be DC'd if his blood pressure is maintained. 01/08/2019. No acute events overnight, bp has been maintained in the normal ranges. He denies any fever, chills, nausea, vomiting, diarrhea, constipation or any urinary symptoms. 01/09/2019. No acute events overnight. Patient is stating that he had a restless night otherwise no complaints. Denies any shortness of breath, nausea, vomiting, diarrhea, chills, constipation or any urinary symptoms. Patient is pending placement. Reason For Visit: SEPSIS,[place]UST[place],LLL PNA Physical Exam Vital Signs: Temp Pulse Resp BP Pulse Ox 99.3 F 105 H 19 102/58 L 94 01/09/19 03:57 01/09/19 07:00 01/09/19 03:57 01/09/19 03:58 01/09/19 03:57 Intake & Output 01/08/19 01/09/19 01/10/19 06:59 06:59 06:59 Intake Total 645 590 Output Total 3572 1550 Balance -1120 -2360 Weight 142.5 kg 134.6 kg General appearance: PRESENT: no acute distress, morbidly obese, well-developed, well-nourished Head exam: PRESENT: atraumatic, normocephalic Respiratory exam: PRESENT: clear to auscultation almaz. ABSENT: rales, rhonchi, wheezes Cardiovascular exam: PRESENT: RRR. ABSENT: diastolic murmur, rubs, systolic murmur Extremities exam: PRESENT: +1 edema Neurological exam: PRESENT: alert, awake, oriented to person, oriented to place, oriented to time, oriented to situation, CN II-XII grossly intact. ABSENT: motor sensory deficit Skin exam: PRESENT: dry, intact, warm. ABSENT: cyanosis, rash Results Laboratory Results: 01/06/19 06:20 01/09/19 06:00 01/09/19 06:00 Sodium 135.0 L Potassium 3.9 Chloride 93 L Carbon Dioxide 37 H Anion Gap 5 BUN 19 Creatinine 0.96 Est GFR ( Amer) > 60 Est GFR (Non-Af Amer) > 60 Glucose 68 L Calcium 8.1 L 12/10/18 12/11/18 12/12/18 14:30 04:48 04:08 Troponin I 0.038 NT-Pro-B Natriuret Pep 8520 H 7630 H 8760 H 12/13/18 12/15/18 12/21/18 04:35 05:15 04:16 Troponin I NT-Pro-B Natriuret Pep 85728 H 6410 H 77386 H 12/23/18 01/04/19 06:30 20:00 Troponin I NT-Pro-B Natriuret Pep 68238 H 31950 H Impressions: Chest CT 12/20/18 00:00 IMPRESSION: Grossly stable appearance of the chest with small bilateral effusions, left greater than right and associated bibasilar consolidation, likely atelectasis. Patchy additional bilateral ground-glass opacities, likely infectious/inflammatory. Coronary atherosclerosis. Hepatic steatosis. Thoracentesis Ultrasound 12/23/18 09:52 IMPRESSION: SUCCESSFUL THORACENTESIS USING ULTRASOUND GUIDANCE. Chest X-Ray 01/04/19 00:00 IMPRESSION: Increasing airspace disease on the left. There is volume loss most consistent with atelectasis. There are bilateral pleural effusions left greater than right. Minimal right basilar airspace disease could represent asymmetric edema, pneumonia or atelectasis. Assessment and Plan - Diagnosis (1) Acute on chronic respiratory failure with hypoxia and hypercapnia Is this a current diagnosis for this admission?: Yes Plan: Significant improvement. 94% on 3 L nasal cannula. Likely exacerbated due to acute pulmonary edema caused by acute CHF exacerbation the setting of A. fib RVR. 01/04/2019. CXR showed bilateral pleural effusion and pulmonary edema. 01/04/2019 ABG pH of 7.40, PCO2 of 67 up from 39.9, PO2 of 57.7 down from 73.5. On 30% of oxygen. 01/06/2019 ABG. pH 7.53, PCO2 50.1, PO2 91.3. 2 L nasal cannula. 01/08/2019 ABG: pH 7.47, PCO2 52.5, PO2 72.9 on 3 L nasal cannula. Continue started on BiPAP, Discontinue Cardizem drip. Decrease beta-blockers, continue digoxin. Continue Lasix guided by his vitals. Volume restriction, cardiac diet. Daily weights. He is on a high-dose OxyContin which may have had to do with his low BP and which may have contributed to his low BP. Switch OxyContin to 10 mg p.o. twice daily PRN. His lower extremity edema is improving significantly. His weight is down to 134 from 148 a week ago. Midodrine can be DC'd if his blood pressure is maintained. Can be transferred to rehab at this point once placement available. (2) CHF (congestive heart failure) Qualifiers: Heart failure type: combined systolic and diastolic Is this a current diagnosis for this admission?: No Plan: Combined systolic and diastolic dysfunction. Suboptimal echo. Denies history of CAD. Likely due to combination of A. fib and uncontrolled hypertension. Cardiac diet, strict in and out, fluid restriction daily weights, maintain negative fluid balance. Diuretics guided by volume status and vitals. 11/15/2018. Weight 134 kg down from 148 kg on 12/24/2018. 12/13/2018. 2D echo suboptimal quality. Left ventricular systolic function low normal. Mild concentric hypertrophy of left ventricle. Right ventricle moderately dilated. Left ventricle normal size. Left ventricular diastolic function could not be adequately assessed due to atrial fibrillation. BNP on admission 8520, 96256, 89292, 85070. Troponins on 12/10/[address] 0.038. 07/19/2018. CT abdomen noncontrast liver, spleen, adrenals no identified significant masses. (3) Persistent hypotension Is this a current diagnosis for this admission?: Yes Plan: Improved. Restarted Midodrine. Adjust Cardizem and beta-blockers. 12/13/2018. 2D echo suboptimal quality. Left ventricular systolic function low normal. Mild concentric hypertrophy of left ventricle. Right ventricle moderately dilated. Left ventricle normal size. Left ventricular diastolic function could not be adequately assessed due to atrial fibrillation. BNP on admission 8520, 10021, 93389, 21904. Troponins on 12/10/2018 0.038. 12/24/2018. Albumin 2.0. 12/10/2018 AST 122, 12/24/2017 AST 43 07/19/2018. CT abdomen noncontrast liver, spleen, adrenals no identified significant masses. He is on a high-dose OxyContin which may have had to do with his low BP and which may have contributed to his low BP. Switch OxyContin to 10 mg p.o. twice daily PRN. His lower extremity edema is improving significantly. His weight is down to 134 from 148 a week ago. Midodrine can be DC'd if his blood pressure is maintained. (4) Chronic a-fib Is this a current diagnosis for this admission?: Yes Plan: Rate controlled. Cardizem drip DC'd on 01/04/2019. Continue digoxin, metoprolol, Cardizem, aspirin and Eliquis. 12/13/2018. 2D echo suboptimal quality. Left ventricular systolic function low normal. Mild concentric hypertrophy of left ventricle. Right ventricle moderately dilated. Left ventricle normal size. Left ventricular diastolic function could not be adequately assessed due to atrial fibrillation. BNP on admission 8520, 50227, 30290, 34882. Troponins on 12/10/2018 0.038. (5) Healthcare-associated pneumonia Is this a current diagnosis for this admission?: Yes Plan: Resolved. Likely due to GNR or Staph aureus 12/19/2018 patient healthcare associated pneumonia treated with IV Zosyn, vancomycin and ceftriaxone. Currently asymptomatic. Afebrile. Pulmonary was consulted. (6) Opiate dependence due to chronic pain Is this a current diagnosis for this admission?: Yes Plan: Management per his primary care physician. He is on a high-dose OxyContin which may have had to do with his low BP and which may have contributed to his low BP. His lower extremity edema is improving but not significantly since furosemide had to be stopped due to hypotension. We will decrease OxyContin and make it as needed, restart furosemide IV twice daily as well as midodrine 5 mg p.o. 3 times daily. Midodrine can be DC'd if his blood pressure is maintained. (7) Pleural effusion Is this a current diagnosis for this admission?: Yes Plan: Likely due to his underlying CHF. Had a thoracentesis done by radiology on 12/23/2018. WBC 25, RBC 18, glucose 101, LDH 55, total protein 1.0. Pleural fluid culture and stains negative. (8) Acute kidney injury Is this a current diagnosis for this admission?: Yes Plan: Likely due to sepsis. Resolved. Creatinine within normal limits. Renal ultrasound negative for any acute abnormalities. 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 Diet and lifestyle modifications. (10) BPH (benign prostatic hyperplasia) Qualifiers: Lower urinary tract symptom detail: urinary frequency Is this a current diagnosis for this admission?: Yes Plan: Continue Tamsulosin and finasteride. Outpatient urology follow-up. (11) COPD (chronic obstructive pulmonary disease) Qualifiers: COPD type: unspecified COPD Qualified Code(s): J44.9 - Chronic obstructive pulmonary disease, unspecified Is this a current diagnosis for this admission?: Yes Plan: DuoNeb's, BiPAP, incentive spirometry, flutter valve. Outpatient pulmonary follow-up (12) Hypoglycemia Is this a current diagnosis for this admission?: Yes Plan: History of gastric bypass. Has been refusing food due to recent abdominal bloating. Encourage frequent snacking. Accu-Chek for a day or 2.
[2019-01-09] MEDS ORDERED: GABAPENTIN 300 MG CAPSULE PO SCH (22:00)
[2019-01-09] MEDS: GABAPENTIN 300 MG CAPSULE PO SCH (22:27)
[2019-01-10] MEDS: BUPROPION HCL 100 MG TABLET PO SCH ×3 (05:49→21:05)
[2019-01-10] MEDS ORDERED: PANTOPRAZOLE SODIUM 40 MG TABLET.DR PO SCH (08:00)
[2019-01-10] MEDS: PANTOPRAZOLE SODIUM 40 MG TABLET.DR PO SCH (08:58)
[2019-01-10] MEDS: OXYCODONE HCL SR 10 MG TABLET PO SCH ×2 (09:10→21:05)
[2019-01-10] MEDS: LACTOBACILLUS ACIDOPHILUS 250 MG TAB PO SCH ×2 (09:10→18:04)
[2019-01-10] MEDS: FUROSEMIDE 20 MG TABLET PO SCH ×2 (09:10→18:05)
[2019-01-10] MEDS: FINASTERIDE 5 MG TABLET PO SCH (09:11)
[2019-01-10] MEDS: DILTIAZEM HCL 120 MG CAP.SR.24H PO SCH (09:11)
[2019-01-10] MEDS: MAGNESIUM OXIDE 400 MG TABLET PO SCH ×2 (09:11→18:04)
[2019-01-10] MEDS: APIXABAN 5 MG TABLET PO SCH ×2 (09:11→18:04)
[2019-01-10] MEDS: DIGOXIN 0.125 MG TABLET PO SCH (09:11)
[2019-01-10] MEDS ORDERED: DIGOXIN 0.125 MG TABLET PO SCH (10:00)
--- NOTE | 2019-01-10 16:23 | RADIOLOGY REPORT (SQ) ---
EXAM DESCRIPTION: HIP RIGHT AP/LATERAL COMPLETED DATE/TIME: 01/10/2019 3:19 pm REASON FOR STUDY: Rt Hip Pain COMPARISON: CT abdomen pelvis 10/08/2011 NUMBER OF VIEWS: Two views. TECHNIQUE: AP pelvis and additional frog-leg view of the right hip. LIMITATIONS: None. FINDINGS: MINERALIZATION: Normal. RIGHT HIP: No fracture. High-grade joint space narrowing is present with subcortical cyst formation in the right humeral head. [id number] appearance with mild bony spurring. LEFT HIP: No fracture. Moderate to high-grade joint space narrowing is present with bony spurring. PUBIS AND ISCHIUM: No fracture. PELVIS: No fracture. SACRUM: No fracture or dislocation. No worrisome bone lesions. LOWER LUMBAR SPINE: Degenerative disc changes at L4-5 and L5-S1 SOFT TISSUES: Valadez catheter drains the bladder. Atherosclerotic arterial vascular calcifications. Old mesenteric calcification over the left lower quadrant unchanged from CT 10/08/2011 OTHER: No other significant finding. IMPRESSION: Osteoarthritis of both hips TECHNICAL DOCUMENTATION: JOB ID: [id number] [facility]- All Rights Reserved Reading location - IP/workstation name: [email or web address]
--- NOTE | 2019-01-10 16:51 | PDOC PROGRESS REPORT ---
Subjective Progress Note for:: 01/10/19 Subjective:: Raymond Dumont A 68 years old male with past medical history of chronic atrial fibrillation, coronary artery disease, COPD, hypertension and hypothyroidism presented with generalized weakness and diarrhea. Patient has been treated as a case of healthcare associated pneumonia with Zosyn and vancomycin. Of note patient was admitted in September 2018 for hypovolemic shock. His urine culture is positive for E. coli which is pansensitive and his blood culture grew gram-positive cocci in cluster which is identified as Staphylococcus, Auricularis which is pansensitive except for erythromycin. Zosyn and vancomycin discontinued and patient switched to ceftriaxone. Cu rrently off of antibiotics. He was hypotensive at admission and had been on Levophed which had been discontinued. Patient has had intermittent hypotension which has been treated with bolus of IV fluids and maintained with normal saline. Patient has been also on Solu-Cortef high-dose which is tapered down to 50 mg IV daily. He has been also getting midodrine and fludrocortisone. Currently his blood pressure is stable. Patient has been awaiting for placement. 01/03/2019. No acute events overnight. Denies any fever, chills, nausea, vomiting, diarrhea, constipation or any urinary symptoms. Concerned about not receiving any physical therapy while inpatient. He is anxious to be transferred to rehab where he can receive his physical therapy. 01/04/2019. Patient developed A. fib RVR this morning with severe respiratory distress and hypoxemia. Patient will start on IV Lasix, BiPAP significant improvement of his symptoms. Chest x-ray showed bilateral pleural effusion and pulmonary edema. ABG showed pH of 7.40, PCO2 of 67 up from 39.9, PO2 of 57.7 down from 73.5. On 30% of oxygen. Denies any chest pain, nausea, vomiting, diarrhea, constipation or any urinary symptoms. 01/05/2019. No acute events overnight. Respiratory symptom has improved significantly. Patient on nasal cannula upon encounter feeling that he is feeling much better than yesterday. Saturating 98% on 4.5 L, fluid balance of - 5632 significant improvement of his bilateral lower extremity edema. Denies any fever, chills, nausea, vomiting, diarrhea, constipation or any urinary symptoms. Patient blood pressure was dropping towards the evening BP of 82/44 asymptomatic. His diuretics were stopped, Cardizem PO and BB PO cut in 09/20. 01/06/2019. No acute events overnight. Significant improvement of his symptoms. ABG this morning PCO2 of 50.1, PO2 of 91.3 up from 57.7 on 01/04/2019. Patient's pressure drops to below 100 however asymptomatic. His medication will be reconciled. Lower extremity edema has improved significantly, his weight is 139.8 down from 148 on 01/02/2019. Denies any fever, chills, nausea, vomiting, diarrhea, constipation or any urinary symptoms. 01/07/2019. Patient had one episode of confusion overnight otherwise no acute events, systolic blood pressure has been maintained in low 100s, but got the patient stating that he is feeling weak otherwise does not have any complaints, denies any fever, chills, nausea, vomiting, diarrhea, constipation or any urinary symptoms. He is on a high-dose OxyContin which may have had to do with his low BP and which may have contributed to his low BP. His lower extremity edema is improving but not significantly since furosemide h ad to be stopped due to hypotension. We will decrease OxyContin and make it as needed, restart furosemide IV twice daily as well as midodrine 5 mg p.o. 3 times daily. Midodrine can be DC'd if his blood pressure is maintained. 01/08/2019. No acute events overnight, bp has been maintained in the normal ranges. He denies any fever, chills, nausea, vomiting, diarrhea, constipation or any urinary symptoms. 01/09/2019. No acute events overnight. Patient is stating that he had a restless night otherwise no complaints. Denies any shortness of breath, nausea, vomiting, diarrhea, chills, constipation or any urinary symptoms. Patient is pending placement. 01/10/2019. No acute events overnight. Lower extremity has improved. Patient blood pressure has been maintained within normal ranges. DC Midodrin. Still pending for placement. Reason For Visit: SEPSIS,[place],LLL PNA Physical Exam Vital Signs: Temp Pulse Resp BP Pulse Ox 97.6 F 67 18 136/86 H 96 01/10/19 15:30 01/10/19 15:30 01/10/19 15:30 01/10/19 15:30 01/10/19 15:30 Intake & Output 01/09/19 01/10/19 01/11/19 06:59 06:59 06:59 Intake Total 590 1202 Output Total 2950 1900 Balance -2570 -958 Weight 134.6 kg 135.7 kg General appearance: PRESENT: no acute distress, morbidly obese, well-developed, well-nourished Head exam: PRESENT: atraumatic, normocephalic Respiratory exam: PRESENT: clear to auscultation almaz. ABSENT: rales, rhonchi, wheezes Cardiovascular exam: PRESENT: RRR. ABSENT: diastolic murmur, rubs, systolic murmur GI/Abdominal exam: PRESENT: normal bowel sounds, soft. ABSENT: distended, guarding, mass, organolmegaly, rebound, tenderness Extremities exam: PRESENT: +1 edema Neurological exam: PRESENT: alert, awake, oriented to person, oriented to place, oriented to time, oriented to situation, CN II-XII grossly intact. ABSENT: motor sensory deficit Results Laboratory Results: 01/06/19 06:20 01/09/19 06:00 12/10/18 12/11/18 12/12/18 14:30 04:48 04:08 Troponin I 0.038 NT-Pro-B Natriuret Pep 8520 H 7630 H 8760 H 12/13/18 12/15/18 12/21/18 04:35 05:15 04:16 Troponin I NT-Pro-B Natriuret Pep 33589 H 6410 H 47688 H 12/23/18 01/04/19 06:30 20:00 Troponin I NT-Pro-B Natriuret Pep 12779 H 26873 H Impressions: Chest CT 12/20/18 00:00 IMPRESSION: Grossly stable appearance of the chest with small bilateral effusions, left greater than right and associated bibasilar consolidation, likely atelectasis. Patchy additional bilateral ground-glass opacities, likely infectious/inflammatory. Coronary atherosclerosis. Hepatic steatosis. Thoracentesis Ultrasound 12/23/18 09:52 IMPRESSION: SUCCESSFUL THORACENTESIS USING ULTRASOUND GUIDANCE. Chest X-Ray 01/04/19 00:00 IMPRESSION: Increasing airspace disease on the left. There is volume loss most consistent with atelectasis. There are bilateral pleural effusions left greater than right. Minimal right basilar airspace disease could represent asymmetric edema, pneumonia or atelectasis. Hip/Pelvis X-Ray 01/10/19 00:00 IMPRESSION: Osteoarthritis of both hips Assessment and Plan - Diagnosis (1) Acute on chronic respiratory failure with hypoxia and hypercapnia Is this a current diagnosis for this admission?: Yes Plan: Significant improvement. SpO2 96% on room air. Likely exacerbated due to acute pulmonary edema caused by acute CHF exacerbation the setting of A. fib RVR. 01/04/2019. CXR showed bilateral pleural effusion and pulmonary edema. 01/04/2019 ABG pH of 7.40, PCO2 of 67 up from 39.9, PO2 of 57.7 down from 73.5. On 30% of oxygen. 01/06/2019 ABG. pH 7.53, PCO2 50.1, PO2 91.3. 2 L nasal cannula. 01/08/2019 ABG: pH 7.47, PCO2 52.5, PO2 72.9 on 3 L nasal cannula. Continue started on BiPAP, Discontinue Cardizem drip. Decrease beta-blockers, continue digoxin. Continue Lasix guided by his vitals. Volume restriction, cardiac diet. Daily weights. He is on a high-dose OxyContin which may have had to do with his low BP and which may have contributed to his low BP. Switch OxyContin to 10 mg p.o. twice daily PRN. His lower extremity edema is improving significantly. His weight is down to 134 from 148 a week ago. Midodrine can be DC'd if his blood pressure is maintained. Can be transferred to rehab at this point once placement available. (2) CHF (congestive heart failure) Qualifiers: Heart failure type: combined systolic and diastolic Is this a current diagnosis for this admission?: No Plan: Combined systolic and diastolic dysfunction. Suboptimal echo. Denies history of CAD. Likely due to combination of A. fib and uncontrolled hypertension. Cardiac diet, strict in and out, fluid restriction daily weights, maintain negative fluid balance. Diuretics guided by volume status and vitals. 11/15/2018. Weight 134 kg down from 148 kg on 12/24/2018. 12/13/2018. 2D echo suboptimal quality. Left ventricular systolic function low normal. Mild concentric hypertrophy of left ventricle. Right ventricle moderately dilated. Left ventricle normal size. Left ventricular diastolic function could not be adequately assessed due to atrial fibrillation. BNP on admission 8520, 42257, 72792, 51230. Troponins on 12/10/[address] 0.038. 07/19/2018. CT abdomen noncontrast liver, spleen, adrenals no identified significant masses. (3) Persistent hypotension Is this a current diagnosis for this admission?: Yes Plan: Improved. DC Midodrine. Adjust Cardizem and beta-blockers. 12/13/2018. 2D echo suboptimal quality. Left ventricular systolic function low normal. Mild concentric hypertrophy of left ventricle. Right ventricle moderately dilated. Left ventricle normal size. Left ventricular diastolic function could not be adequately assessed due to atrial fibrillation. BNP on admission 8520, 25966, 34298, 11585. Troponins on 12/10/2018 0.038. 12/24/2018. Albumin 2.0. 12/10/2018 AST 122, 12/24/2017 AST 43 07/19/2018. CT abdomen noncontrast liver, spleen, adrenals no identified significant masses. He is on a high-dose OxyContin which may have had to do with his low BP and which may have contributed to his low BP. Switch OxyContin to 10 mg p.o. twice daily PRN. His lower extremity edema is improving significantly. His weight is down to 134 from 148 a week ago. Midodrine can be DC'd if his blood pressure is maintained. (4) Chronic a-fib Is this a current diagnosis for this admission?: Yes Plan: Rate controlled. Cardizem drip DC'd on 01/04/2019. Continue digoxin, metoprolol, Cardizem, aspirin and Eliquis. 12/13/2018. 2D echo suboptimal quality. Left ventricular systolic function low normal. Mild concentric hypertrophy of left ventricle. Right ventricle moderately dilated. Left ventricle normal size. Left ventricular diastolic function could not be adequately assessed due to atrial fibrillation. BNP on admission 8520, 45922, 10929, 78269. Troponins on 12/10/2018 0.038. (5) Healthcare-associated pneumonia Is this a current diagnosis for this admission?: Yes Plan: Resolved. Likely due to GNR or Staph aureus 12/19/2018 patient healthcare associated pneumonia treated with IV Zosyn, vancomycin and ceftriaxone. Currently asymptomatic. Afebrile. Pulmonary was consulted. (6) Opiate dependence due to chronic pain Is this a current diagnosis for this admission?: Yes Plan: Management per his primary care physician. He is on a high-dose OxyContin which may have had to do with his low BP and which may have contributed to his low BP. His lower extremity edema is improving but not significantly since furosemide had to be stopped due to hypotension. We will decrease OxyContin and make it as needed, restart furosemide IV twice daily as well as midodrine 5 mg p.o. 3 times daily. Midodrine can be DC'd if his blood pressure is maintained. (7) Pleural effusion Is this a current diagnosis for this admission?: Yes Plan: Likely due to his underlying CHF. Had a thoracentesis done by radiology on 12/23/2018. WBC 25, RBC 18, glucose 101, LDH 55, total protein 1.0. Pleural fluid culture and stains negative. (8) Acute kidney injury Is this a current diagnosis for this admission?: Yes Plan: Likely due to sepsis. Resolved. Creatinine within normal limits. Renal ultrasound negative for any acute abnormalities. 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 Diet and lifestyle modifications. (10) BPH (benign prostatic hyperplasia) Qualifiers: Lower urinary tract symptom detail: urinary frequency Is this a current diagnosis for this admission?: Yes Plan: Continue Tamsulosin and finasteride. Outpatient urology follow-up. (11) COPD (chronic obstructive pulmonary disease) Qualifiers: COPD type: unspecified COPD Qualified Code(s): J44.9 - Chronic obstructive pulmonary disease, unspecified Is this a current diagnosis for this admission?: Yes Plan: DuoNeb's, BiPAP, incentive spirometry, flutter valve. Outpatient pulmonary follow-up (12) Hypoglycemia Is this a current diagnosis for this admission?: Yes Plan: Resolved. History of gastric bypass. Encourage frequent snacking. Accu-Chek for a day or 2.
[2019-01-10] MEDS: GABAPENTIN 300 MG CAPSULE PO SCH (21:05)
[2019-01-11] MEDS: BUPROPION HCL 100 MG TABLET PO SCH ×3 (05:44→21:21)
[2019-01-11] MEDS: PANTOPRAZOLE SODIUM 40 MG TABLET.DR PO SCH (08:56)
[2019-01-11] MEDS: APIXABAN 5 MG TABLET PO SCH ×2 (09:02→18:11)
[2019-01-11] MEDS: LACTOBACILLUS ACIDOPHILUS 250 MG TAB PO SCH ×2 (09:02→18:11)
[2019-01-11] MEDS: OXYCODONE HCL SR 10 MG TABLET PO SCH ×2 (09:02→21:21)
[2019-01-11] MEDS: FINASTERIDE 5 MG TABLET PO SCH (09:03)
[2019-01-11] MEDS: MAGNESIUM OXIDE 400 MG TABLET PO SCH ×2 (09:03→18:11)
[2019-01-11] MEDS: DIGOXIN 0.125 MG TABLET PO SCH (09:03)
[2019-01-11] MEDS: FUROSEMIDE 20 MG TABLET PO SCH ×2 (09:03→18:11)
[2019-01-11] MEDS: DILTIAZEM HCL 120 MG CAP.SR.24H PO SCH (09:03)
--- NOTE | 2019-01-11 18:37 | PDOC PROGRESS REPORT ---
Subjective Progress Note for:: 01/11/19 Subjective:: Raymond Dumont A 68 years old male with past medical history of chronic atrial fibrillation, coronary artery disease, COPD, hypertension and hypothyroidism presented with generalized weakness and diarrhea. Patient has been treated as a case of healthcare associated pneumonia with Zosyn and vancomycin. Of note patient was admitted in September 2018 for hypovolemic shock. His urine culture is positive for E. coli which is pansensitive and his blood culture grew gram-positive cocci in cluster which is identified as Staphylococcus, Auricularis which is pansensitive except for erythromycin. Zosyn and vancomycin discontinued and patient switched to ceftriaxone. Cu rrently off of antibiotics. He was hypotensive at admission and had been on Levophed which had been discontinued. Patient has had intermittent hypotension which has been treated with bolus of IV fluids and maintained with normal saline. Patient has been also on Solu-Cortef high-dose which is tapered down to 50 mg IV daily. He has been also getting midodrine and fludrocortisone. Currently his blood pressure is stable. Patient has been awaiting for placement. 01/03/2019. No acute events overnight. Denies any fever, chills, nausea, vomiting, diarrhea, constipation or any urinary symptoms. Concerned about not receiving any physical therapy while inpatient. He is anxious to be transferred to rehab where he can receive his physical therapy. 01/04/2019. Patient developed A. fib RVR this morning with severe respiratory distress and hypoxemia. Patient will start on IV Lasix, BiPAP significant improvement of his symptoms. Chest x-ray showed bilateral pleural effusion and pulmonary edema. ABG showed pH of 7.40, PCO2 of 67 up from 39.9, PO2 of 57.7 down from 73.5. On 30% of oxygen. Denies any chest pain, nausea, vomiting, diarrhea, constipation or any urinary symptoms. 01/05/2019. No acute events overnight. Respiratory symptom has improved significantly. Patient on nasal cannula upon encounter feeling that he is feeling much better than yesterday. Saturating 98% on 4.5 L, fluid balance of - 5632 significant improvement of his bilateral lower extremity edema. Denies any fever, chills, nausea, vomiting, diarrhea, constipation or any urinary symptoms. Patient blood pressure was dropping towards the evening BP of 82/44 asymptomatic. His diuretics were stopped, Cardizem PO and BB PO cut in 09/20. 01/06/2019. No acute events overnight. Significant improvement of his symptoms. ABG this morning PCO2 of 50.1, PO2 of 91.3 up from 57.7 on 01/04/2019. Patient's pressure drops to below 100 however asymptomatic. His medication will be reconciled. Lower extremity edema has improved significantly, his weight is 139.8 down from 148 on 01/02/2019. Denies any fever, chills, nausea, vomiting, diarrhea, constipation or any urinary symptoms. 01/07/2019. Patient had one episode of confusion overnight otherwise no acute events, systolic blood pressure has been maintained in low 100s, but got the patient stating that he is feeling weak otherwise does not have any complaints, denies any fever, chills, nausea, vomiting, diarrhea, constipation or any urinary symptoms. He is on a high-dose OxyContin which may have had to do with his low BP and which may have contributed to his low BP. His lower extremity edema is improving but not significantly since furosemide h ad to be stopped due to hypotension. We will decrease OxyContin and make it as needed, restart furosemide IV twice daily as well as midodrine 5 mg p.o. 3 times daily. Midodrine can be DC'd if his blood pressure is maintained. 01/08/2019. No acute events overnight, bp has been maintained in the normal ranges. He denies any fever, chills, nausea, vomiting, diarrhea, constipation or any urinary symptoms. 01/09/2019. No acute events overnight. Patient is stating that he had a restless night otherwise no complaints. Denies any shortness of breath, nausea, vomiting, diarrhea, chills, constipation or any urinary symptoms. Patient is pending placement. 01/10/2019. No acute events overnight. Lower extremity has improved. Patient blood pressure has been maintained within normal ranges. DC Midodrin. Still pending for placement. 01/11/2019. No acute events overnight. Lower extremity has improved. Patient blood pressure has been maintained within normal ranges. Has been accepted at [facility] will transfer tomorrow. Reason For Visit: SEPSIS,[place]UST[place],LLL PNA Physical Exam Vital Signs: Temp Pulse Resp BP Pulse Ox 97.7 F 87 20 122/58 L 97 01/11/19 16:45 01/11/19 16:45 01/11/19 16:45 01/11/19 16:45 01/11/19 16:45 Intake & Output 01/10/19 01/11/19 01/12/19 06:59 06:59 06:59 Intake Total 1202 794 867 Output Total 1909 8245 875 Balance -698 -481 -8 Weight 135.7 kg 134 kg General appearance: PRESENT: morbidly obese Head exam: PRESENT: atraumatic, normocephalic Respiratory exam: PRESENT: clear to auscultation almaz. ABSENT: rales, rhonchi, wheezes GI/Abdominal exam: PRESENT: normal bowel sounds, soft. ABSENT: distended, guarding, mass, organolmegaly, rebound, tenderness Extremities exam: PRESENT: +2 edema Neurological exam: PRESENT: alert, awake, oriented to person, oriented to place, oriented to time, oriented to situation, CN II-XII grossly intact. ABSENT: motor sensory deficit Results Laboratory Results: 01/06/19 06:20 01/09/19 06:00 12/10/18 12/11/18 12/12/18 14:30 04:48 04:08 Troponin I 0.038 NT-Pro-B Natriuret Pep 8520 H 7630 H 8760 H 12/13/18 12/15/18 12/21/18 04:35 05:15 04:16 Troponin I NT-Pro-B Natriuret Pep 18648 H 6410 H 34046 H 12/23/18 01/04/19 06:30 20:00 Troponin I NT-Pro-B Natriuret Pep 15178 H 23260 H Impressions: Chest CT 12/20/18 00:00 IMPRESSION: Grossly stable appearance of the chest with small bilateral effusions, left greater than right and associated bibasilar consolidation, likely atelectasis. Patchy additional bilateral ground-glass opacities, likely infectious/inflammatory. Coronary atherosclerosis. Hepatic steatosis. Thoracentesis Ultrasound 12/23/18 09:52 IMPRESSION: SUCCESSFUL THORACENTESIS USING ULTRASOUND GUIDANCE. Chest X-Ray 01/04/19 00:00 IMPRESSION: Increasing airspace disease on the left. There is volume loss most consistent with atelectasis. There are bilateral pleural effusions left greater than right. Minimal right basilar airspace disease could represent asymmetric edema, pneumonia or atelectasis. Hip/Pelvis X-Ray 01/10/19 00:00 IMPRESSION: Osteoarthritis of both hips Assessment and Plan - Diagnosis (1) Acute on chronic respiratory failure with hypoxia and hypercapnia Is this a current diagnosis for this admission?: Yes Plan: Significant improvement. SpO2 96% on room air. Likely exacerbated due to acute pulmonary edema caused by acute CHF exacerbation the setting of A. fib RVR. 01/04/2019. CXR showed bilateral pleural effusion and pulmonary edema. 01/04/2019 ABG pH of 7.40, PCO2 of 67 up from 39.9, PO2 of 57.7 down from 73.5. On 30% of oxygen. 01/06/2019 ABG. pH 7.53, PCO2 50.1, PO2 91.3. 2 L nasal cannula. 01/08/2019 ABG: pH 7.47, PCO2 52.5, PO2 72.9 on 3 L nasal cannula. Continue started on BiPAP, Discontinue Cardizem drip. Decrease beta-blockers, continue digoxin. Continue Lasix guided by his vitals. Volume restriction, cardiac diet. Daily weights. He is on a high-dose OxyContin which may have had to do with his low BP and which may have contributed to his low BP. Switch OxyContin to 10 mg p.o. twice daily PRN. His lower extremity edema is improving significantly. His weight is down to 134 from 148 a week ago. Midodrine can be DC'd if his blood pressure is maintained. Can be transferred to rehab at this point once placement available. (2) CHF (congestive heart failure) Qualifiers: Heart failure type: combined systolic and diastolic Is this a current diagnosis for this admission?: No Plan: Combined systolic and diastolic dysfunction. Suboptimal echo. Denies history of CAD. Likely due to combination of A. fib and uncontrolled hypertension. Cardiac diet, strict in and out, fluid restriction daily weights, maintain negative fluid balance. Diuretics guided by volume status and vitals. 11/15/2018. Weight 134 kg down from 148 kg on 12/24/2018. 12/13/2018. 2D echo suboptimal quality. Left ventricular systolic function low normal. Mild concentric hypertrophy of left ventricle. Right ventricle moderately dilated. Left ventricle normal size. Left ventricular diastolic function could not be adequately assessed due to atrial fibrillation. BNP on admission 8520, 27197, 67392, 88428. Troponins on 12/10/[address] 0.038. 07/19/2018. CT abdomen noncontrast liver, spleen, adrenals no identified significant masses. (3) Persistent hypotension Is this a current diagnosis for this admission?: Yes Plan: Improved. DC Midodrine. Adjust Cardizem and beta-blockers. 12/13/2018. 2D echo suboptimal quality. Left ventricular systolic function low normal. Mild concentric hypertrophy of left ventricle. Right ventricle moderately dilated. Left ventricle normal size. Left ventricular diastolic function could not be adequately assessed due to atrial fibrillation. BNP on admission 8520, 98891, 10942, 35517. Troponins on 12/10/2018 0.038. 12/24/2018. Albumin 2.0. 12/10/2018 AST 122, 12/24/2017 AST 43 07/19/2018. CT abdomen noncontrast liver, spleen, adrenals no identified significant masses. He is on a high-dose OxyContin which may have had to do with his low BP and which may have contributed to his low BP. Switch OxyContin to 10 mg p.o. twice daily PRN. His lower extremity edema is improving significantly. His weight is down to 134 from 148 a week ago. Midodrine can be DC'd if his blood pressure is maintained. (4) Chronic a-fib Is this a current diagnosis for this admission?: Yes Plan: Rate controlled. Cardizem drip DC'd on 01/04/2019. Continue digoxin, metoprolol, Cardizem, aspirin and Eliquis. 12/13/2018. 2D echo suboptimal quality. Left ventricular systolic function low normal. Mild concentric hypertrophy of left ventricle. Right ventricle moderately dilated. Left ventricle normal size. Left ventricular diastolic function could not be adequately assessed due to atrial fibrillation. BNP on admission 8520, 54141, 79126, 82649. Troponins on 12/10/2018 0.038. (5) Healthcare-associated pneumonia Is this a current diagnosis for this admission?: Yes Plan: Resolved. Likely due to GNR or Staph aureus 12/19/2018 patient healthcare associated pneumonia treated with IV Zosyn, vancomycin and ceftriaxone. Currently asymptomatic. Afebrile. Pulmonary was consulted. (6) Opiate dependence due to chronic pain Is this a current diagnosis for this admission?: Yes Plan: Management per his primary care physician. He is on a high-dose OxyContin which may have had to do with his low BP and which may have contributed to his low BP. His lower extremity edema is improving but not significantly since furosemide had to be stopped due to hypotension. We will decrease OxyContin and make it as needed, restart furosemide IV twice daily as well as midodrine 5 mg p.o. 3 times daily. Midodrine can be DC'd if his blood pressure is maintained. (7) Pleural effusion Is this a current diagnosis for this admission?: Yes Plan: Likely due to his underlying CHF. Had a thoracentesis done by radiology on 12/23/2018. WBC 25, RBC 18, glucose 101, LDH 55, total protein 1.0. Pleural fluid culture and stains negative. (8) Acute kidney injury Is this a current diagnosis for this admission?: Yes Plan: Likely due to sepsis. Resolved. Creatinine within normal limits. Renal ultrasound negative for any acute abnormalities. 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 Diet and lifestyle modifications. (10) BPH (benign prostatic hyperplasia) Qualifiers: Lower urinary tract symptom detail: urinary frequency Is this a current diagnosis for this admission?: Yes Plan: Continue Tamsulosin and finasteride. Outpatient urology follow-up. (11) COPD (chronic obstructive pulmonary disease) Qualifiers: COPD type: unspecified COPD Qualified Code(s): J44.9 - Chronic obstructive pulmonary disease, unspecified Is this a current diagnosis for this admission?: Yes Plan: DuoNeb's, BiPAP, incentive spirometry, flutter valve. Outpatient pulmonary follow-up (12) Hypoglycemia Is this a current diagnosis for this admission?: Yes Plan: Resolved. History of gastric bypass. Encourage frequent snacking. Accu-Chek for a day or 2.
[2019-01-11] MEDS: GABAPENTIN 300 MG CAPSULE PO SCH (21:22)
[2019-01-12] MEDS: BUPROPION HCL 100 MG TABLET PO SCH ×2 (05:48→14:45)
[2019-01-12] MEDS: PANTOPRAZOLE SODIUM 40 MG TABLET.DR PO SCH (09:52)
[2019-01-12] MEDS: OXYCODONE HCL SR 10 MG TABLET PO SCH (09:53)
[2019-01-12] MEDS: ACETAMINOPHEN 325 MG TABLET PO PRN (09:53)
[2019-01-12] MEDS: FUROSEMIDE 20 MG TABLET PO SCH ×2 (09:53→17:40)
[2019-01-12] MEDS: DILTIAZEM HCL 120 MG CAP.SR.24H PO SCH (09:54)
[2019-01-12] MEDS: DIGOXIN 0.125 MG TABLET PO SCH (09:54)
[2019-01-12] MEDS: MAGNESIUM OXIDE 400 MG TABLET PO SCH ×2 (09:54→17:41)
[2019-01-12] MEDS: APIXABAN 5 MG TABLET PO SCH ×2 (09:54→17:41)
[2019-01-12] MEDS: LACTOBACILLUS ACIDOPHILUS 250 MG TAB PO SCH ×2 (09:54→17:40)
[2019-01-12] MEDS: FINASTERIDE 5 MG TABLET PO SCH (09:54)
--- NOTE | 2019-01-12 11:15 | PDOC TRANSFER SUMMARY ---
General Admission Date/PCP: 12/10/18 16:43 BRAN CERNA PA-C Resuscitation Status: Full Code - Transfer Diagnosis (1) Acute on chronic respiratory failure with hypoxia and hypercapnia Is this a current diagnosis for this admission?: Yes (2) CHF (congestive heart failure) Is this a current diagnosis for this admission?: No (3) Persistent hypotension Is this a current diagnosis for this admission?: Yes (4) Chronic a-fib Is this a current diagnosis for this admission?: Yes (5) Healthcare-associated pneumonia Is this a current diagnosis for this admission?: Yes (6) Opiate dependence due to chronic pain Is this a current diagnosis for this admission?: Yes (7) Pleural effusion Is this a current diagnosis for this admission?: Yes (8) Acute kidney injury Is this a current diagnosis for this admission?: Yes (9) Morbid obesity with BMI of 40.0-44.9, adult Is this a current diagnosis for this admission?: Yes (10) BPH (benign prostatic hyperplasia) Is this a current diagnosis for this admission?: Yes (11) COPD (chronic obstructive pulmonary disease) Is this a current diagnosis for this admission?: Yes (12) Hypoglycemia Is this a current diagnosis for this admission?: Yes (13) Karu catheter in place Is this a current diagnosis for this admission?: Yes - Transfer Medications Home Medications: Apixaban [Eliquis 5 mg Tablet] 5 mg PO Q12 12/11/18 Bupropion HCl [Wellbutrin Xl 300mg 24hr Tablet] 300 mg PO DAILY 12/11/18 Digoxin [Lanoxin 0.125 mg Tablet] 0.125 mg PO DAILY 12/11/18 Diltiazem HCl [Diltiazem 24Hr ER] 120 mg PO DAILY 12/11/18 Gabapentin [Neurontin 300 mg Capsule] 300 mg PO QHS 12/11/18 Pantoprazole Sodium [Protonix [address] Tablet] 40 mg PO Q6AM 12/11/18 Transfer Medications: Current Medications Acetaminophen (Tylenol 325 Mg Tablet) 650 mg PO Q4HP PRN PRN Reason: FOR PAIN OR TEMP Stop: 02/07/19 16:18 Last Admin: 01/12/19 09:53 Dose: 650 mg Documented by: Albuterol/Ipratropium (Duoneb 3 Ml Ampul) 3 ml NEB RTQ4HP PRN PRN Reason: SHORTNESS OF BREATH Stop: 02/08/19 16:18 Last Admin: 01/04/19 06:07 Dose: 3 ml Documented by: Apixaban (Eliquis 5 Mg Tablet) 5 mg PO BID KATE Stop: 01/23/19 09:59 Last Admin: 01/12/19 09:54 Dose: 5 mg Documented by: Bupropion HCl (Wellbutrin 100 Mg Tablet) 100 mg PO Q8 KATE Stop: 01/18/19 13:59 Last Admin: 01/12/19 05:48 Dose: 100 mg Documented by: Dextrose (Dextrose Inj 50% Syringe (25 Gm/50 Ml)) 12.5 gm IV PRN PRN; Protocol PRN Reason: FOR BG 50-69 IN ALERT PATIENT Stop: 02/08/19 12:36 Dextrose (Dextrose Inj 50% Syringe (25 Gm/50 Ml)) 25 gm IV PRN PRN; Protocol PRN Reason: PER PROTOCOL Stop: 02/08/19 12:36 Dicyclomine HCl (Bentyl 20 Mg Tablet) 20 mg PO Q6HP PRN PRN Reason: ABDOMINAL CRAMPING Stop: 02/07/19 08:19 Last Admin: 01/08/19 09:14 Dose: 20 mg Documented by: Digoxin (Lanoxin 0.125 Mg Tablet) 0.125 mg PO DAILY [facility] Stop: 02/09/19 09:59 Last Admin: 01/12/19 09:54 Dose: 0.125 mg Documented by: Diltiazem HCl (Cardizem Cd 120 Mg Capsule) 120 mg PO DAILY [facility] Stop: 02/07/19 09:59 Last Admin: 01/12/19 09:54 Dose: 120 mg Documented by: Finasteride (Proscar 5 Mg Tablet) 5 mg PO DAILY [facility] Stop: 01/26/19 09:59 Last Admin: 01/12/19 09:54 Dose: 5 mg Documented by: Furosemide (Lasix 20 Mg Tablet) 20 mg PO BID KATE Stop: 02/08/19 09:59 Last Admin: 01/12/19 09:53 Dose: 20 mg Documented by: Gabapentin (Neurontin 300 Mg Capsule) 300 mg PO QHS KATE Stop: 02/08/19 21:59 Last Admin: 01/11/19 21:22 Dose: 300 mg Documented by: Glucagon (Glucagen Inj 1 Mg Vial) 1 mg IM PRN PRN; Protocol PRN Reason: Evaluate for BG < 70 Stop: 02/08/19 12:36 Glucose (Glutose 40% Gel 15 Gm Tube) 15 gm PO PRN PRN; Protocol PRN Reason: FOR BG 50-69 IN ALERT PATIENT Stop: 02/08/19 12:36 Glucose (Glutose 40% Gel 15 Gm Tube) 30 gm PO PRN PRN; Protocol PRN Reason: FOR BG < 50 IN ALERT PATIENT Stop: 02/08/19 12:36 Heparin Sodium (Porcine) (Heparin Flush 10 Unit/Ml 5 Ml Disp.Syrg) 30 unit IV Q8 KATE Stop: 02/05/19 21:59 Last Admin: 01/12/19 05:48 Dose: 30 unit Documented by: Heparin Sodium (Porcine) (Heparin Flush 10 Unit/Ml 5 Ml Disp.Syrg) 30 unit IV .AFTER EACH USE PRN PRN Reason: AFTER EACH INTERMITTENT USE Stop: 02/05/19 18:59 Lactobacillus Acidophilus (Bacid 250 Mg Tablet) 500 mg PO BID [facility] Stop: 01/24/19 17:59 Last Admin: 01/12/19 09:54 Dose: 500 mg Documented by: Magnesium Oxide (Mag-Ox 400 Mg Tablet) 400 mg PO BID [facility] Stop: 01/21/19 09:59 Last Admin: 01/12/19 09:54 Dose: 400 mg Documented by: Oxycodone HCl (Oxycontin Sr 10 Mg Tablet) 10 mg PO Q12 [facility] Stop: 01/16/19 09:59 Last Admin: 01/12/19 09:53 Dose: 10 mg Documented by: Pantoprazole Sodium (Protonix [address] Tablet) 40 mg PO QAM [facility] Stop: 02/08/19 07:59 Last Admin: 01/12/19 09:52 Dose: 40 mg Documented by: Phenazopyridine HCl (Pyridium 200 Mg Tablet) 200 mg PO Q8HP PRN PRN Reason: BLADDER SPASMS Stop: 01/24/19 15:10 Last Admin: 12/27/18 11:15 Dose: 200 mg Documented by: Sodium Chloride (Saline Flush 2.5 Ml Monoject Prefil Syrin) 2.5 ml IV Q8 [facility] Stop: 02/07/19 21:59 Last Admin: 01/12/19 05:49 Dose: Not Given Documented by: - Allergies Allergies/Adverse Reactions: No Known Allergies Allergy (Verified 09/21/18 10:36) - Diet/Activity Discharge Diet: Cardiac Hospital Course Hospital Course: Raymond Dumont A 68 years old male with past medical history of chronic atrial fibrillation, coronary artery disease, COPD, hypertension and hypothyroidism presented with generalized weakness and diarrhea. Patient has been treated as a case of healthcare associated pneumonia with Zosyn and vancomycin. Of note patient was admitted in September 2018 for hypovolemic shock. His urine culture is positive for E. coli which is pansensitive and his blood culture grew gram-positive cocci in cluster which is identified as Staphylococcus, Auricularis which is pansensitive except for erythromycin. Zosyn and vancomycin discontinued and patient switched to ceftriaxone. Currently off of antibiotics. He was hypotensive at admission and had been on Levophed which had been discontinued. Patient has had intermittent hypotension which has been treated with bolus of IV fluids and maintained with normal saline. Patient has been also on Solu-Cortef high-dose which is tapered down to 50 mg IV daily. He has been also getting midodrine and fludrocortisone. Currently his blood pressure is stable. Patient has been awaiting for placement. 01/03/2019. Assumed care today. No acute events overnight. Denies any fever, chills, nausea, vomiting, diarrhea, constipation or any urinary symptoms. Concerned about not receiving any physical therapy while inpatient. He is anxious to be transferred to rehab where he can receive his physical therapy. 01/04/2019. Patient developed A. fib RVR this morning with severe respiratory distress and hypoxemia. Patient will start on IV Lasix, BiPAP significant improvement of his symptoms. Chest x-ray showed bilateral pleural effusion and pulmonary edema. ABG showed pH of 7.40, PCO2 of 67 up from 39.9, PO2 of 57.7 down from 73.5. On 30% of oxygen. Denies any chest pain, nausea, vomiting, diarrhea, constipation or any urinary symptoms. 01/05/2019. No acute events overnight. Respiratory symptom has improved significantly. Patient on nasal cannula upon encounter feeling that he is feeling much better than yesterday. Saturating 98% on 4.5 L, fluid balance of - 5632 significant improvement of his bilateral lower extremity edema. Denies any fever, chills, nausea, vomiting, diarrhea, constipation or any urinary symptoms. Patient blood pressure was dropping towards the evening BP of 82/44 asymptomatic. His diuretics were stopped, Cardizem PO and BB PO cut in 09/20. 01/06/2019. No acute events overnight. Significant improvement of his symptoms. ABG this morning PCO2 of 50.1, PO2 of 91.3 up from 57.7 on 01/04/2019. Patient's pressure drops to below 100 however asymptomatic. His medication will be reconciled. Lower extremity edema has improved significantly, his weight is 139.8 down from 148 on 01/02/2019. Denies any fever, chills, nausea, vomiting, diarrhea, constipation or any urinary symptoms. 01/07/2019. Patient had one episode of confusion overnight otherwise no acute events, systolic blood pressure has been maintained in low 100s, but got the patient stating that he is feeling weak otherwise does not have any complaints, denies any fever, chills, nausea, vomiting, diarrhea, constipation or any urinary symptoms. He is on a high-dose OxyContin which may have had to do with his low BP and which may have contributed to his low BP. His lower extremity edema is improving but not significantly since furosemide had to be stopped due to hypotension. We will decrease OxyContin and make it as needed, restart furosemide IV twice daily as well as midodrine 5 mg p.o. 3 times daily. Midodrine can be DC'd if his blood pressure is maintained. 01/08/2019. No acute events overnight, bp has been maintained in the normal ranges. He denies any fever, chills, nausea, vomiting, diarrhea, constipation or any urinary symptoms. 01/09/2019. No acute events overnight. Patient is stating that he had a restless night otherwise no complaints. Denies any shortness of breath, nausea, vomiting, diarrhea, chills, constipation or any urinary symptoms. Patient is pending placement. 01/10/2019. No acute events overnight. Lower extremity has improved. Patient blood pressure has been maintained within normal ranges. DC Midodrin. Still pending for placement. 01/11/2019. No acute events overnight. Lower extremity has improved. Patient blood pressure has been maintained within normal ranges. Has been accepted at [facility] will transfer tomorrow. (1) Acute on chronic respiratory failure with hypoxia and hypercapnia Significant improvement. SpO2 96% on room air. Likely exacerbated due to acute pulmonary edema caused by acute CHF exacerbation the setting of A. fib RVR. 01/04/2019. CXR showed bilateral pleural effusion and pulmonary edema. 01/04/2019 ABG pH of 7.40, PCO2 of 67 up from 39.9, PO2 of 57.7 down from 73.5. On 30% of oxygen. 01/06/2019 ABG. pH 7.53, PCO2 50.1, PO2 91.3. 2 L nasal cannula. 01/08/2019 ABG: pH 7.47, PCO2 52.5, PO2 72.9 on 3 L nasal cannula. Continued on BiPAP as needed, Off of Cardizem drip. Cotinued on beta-blockers, continue digoxin and lasix. adjusted dosage as needed Volume restriction, cardiac diet. Daily weights. He is on a high-dose OxyContin which may have had to do with his low BP and which may have contributed to his low BP. Switch OxyContin to 5 mg p.o. twice daily PRN. His lower extremity edema is improving significantly. His weight is down to 134 from 148 a week ago. Midodrine can be DC'd if his blood pressure is maintained. (2) CHF (congestive heart failure) Combined systolic and diastolic dysfunction. Suboptimal echo. Denies history of CAD. Likely due to combination of A. fib and uncontrolled hypertension. Cardiac diet, strict in and out, fluid restriction daily weights, maintain negative fluid balance. Diuretics guided by volume status and vitals. 11/15/2018. Weight 134 kg down from 148 kg on 01/02/2019. 12/13/2018. 2D echo suboptimal quality. Left ventricular systolic function low normal. Mild concentric hypertrophy of left ventricle. Right ventricle moderately dilated. Left ventricle normal size. Left ventricular diastolic f unction could not be adequately assessed due to atrial fibrillation. BNP on admission 8520, 92345, 19881, 71576. Troponins on 12/10/[address].038. 07/19/2018. CT abdomen noncontrast liver, spleen, adrenals no identified significant masses. (3) Persistent hypotension Resolved. This was likely due to A. fib RVR and acute CHF exacerbated by high-dose narcotics. Since her narcotics has been reduced and made PRN and has acute CHF and AVR resolved patient has been normotensive. DCd Midodrine, fludrocortisone hydrocortisone and prednisone and adjusted Cardizem. Restart beta-blockers and ARB gradually guided by BP. 12/13/2018. 2D echo suboptimal quality. Left ventricular systolic function low normal. Mild concentric hypertrophy of left ventricle. Right ventricle moderately dilated. Left ventricle normal size. Left ventricular diastolic function could not be adequately assessed due to atrial fibrillation. BNP on admission 8520, 28319, 67461, 84165. Troponins on 12/10/2018 0.038. 12/24/2018. Albumin 2.0. 12/10/2018 AST 122, 12/24/2017 AST 43 07/19/2018. CT abdomen noncontrast liver, spleen, adrenals no identified significant masses. He is on a high-dose OxyContin which may have had to do with his low BP and which may have contributed to his low BP. Switch OxyContin to 5 mg p.o. twice daily PRN. His lower extremity edema is improving significantly. His weight is down to 133 from 148 a week ago. Midodrine can be DC'd if his blood pressure is maintained. (4) Chronic a-fib Rate controlled. Cardizem drip DC'd on 01/04/2019. Continue digoxin, Cardizem, aspirin and Eliquis. Metoprolol and Losartan were held due to persistent hypotension but can be restarted gradually guided by vitals. 12/13/2018. 2D echo suboptimal quality. Left ventricular systolic function low normal. Mild concentric hypertrophy of left ventricle. Right ventricle moderately dilated. Left ventricle normal size. Left ventricular diastolic function could not be adequately assessed due to atrial fibrillation. BNP on admission 8520, 75435, 42321, 23357. Troponins on 12/10/2018 0.038. (5) Healthcare-associated pneumonia Resolved. Likely due to GNR or Staph aureus Blood culture from 12/10/2018 came back positive for staph articularis pansensitive. Urine culture from 12/10/2018 came back positive for E. coli pansensitive. 12/19/2018 patient healthcare associated pneumonia treated with IV Zosyn, vancomycin and ceftriaxone. Currently asymptomatic. Afebrile. Pulmonary was consulted. (6) Opiate dependence due to chronic pain His OxyContin has been reduced to 5 mg p.o. twice daily as needed and patient has been doing very well with that dosage. Avoid high-dose narcotics as patient is sensitive and can have hypotension due to that. He is was a high-dose OxyContin which may have had to do with his low BP and which may have contributed to his low BP. His lower extremity edema is improving but not significantly since furosemide had to be stopped due to hypotension. We will decrease OxyContin and make it as needed, restart furosemide IV twice daily as well as midodrine 5 mg p.o. 3 times daily. Midodrine can be DC'd if his blood pressure is maintained. (7) Pleural effusion Likely due to his underlying CHF. Had a thoracentesis done by radiology on 12/23/2018. WBC 25, RBC 18, glucose 101, LDH 55, total protein 1.0. Pleural fluid culture and stains negative. (8) Acute kidney injury Likely due to sepsis. Resolved. Creatinine within normal limits. Renal ultrasound negative for any acute abnormalities. (9) Morbid obesity with BMI of 40.0-44.9, adult Status post gastric bypass in 90s. Diet and lifestyle modifications. (10) BPH (benign prostatic hyperplasia) Continue Tamsulosin and finasteride. Outpatient urology follow-up. (11) COPD (chronic obstructive pulmonary disease) Currently exacerbated. Continued on DuoNeb's, BiPAP as needed incentive spirometry, flutter valve. Outpatient pulmonary follow-up (12) Hypoglycemia Resolved. History of gastric bypass. Was started on frequent snacking. Accu-Chek for 2 days with normal blood glucose levels. (13) Kaur catheter in place On 01/02/2019 Kaur catheter was placed for strict in and out because of the fact that patient was on acute CHF exacerbation and severely volume overloaded. Patient has mentioned to me several times that he is very nervous about removing kaur cathetor because he will not be able to void in bed while supine and he is too weak to stand up to void, he wants to keep it untill he is strong enough to stand up and void. I have discussed extensively the risk of chronic indwelling kaur cath and have warned him about risk of him having a UTI which may end up putting him in A. fib RVR and subsequently an acute heart failure. Patient understands and still insists on keeping the Kaur in until he is strong enough to stand and void. Replace Kaur cath today. His Kaur cath needs to be removed as soon as possible, he needs to receive bladder training before Kaur catheter is removed to avoid the risk of urinary retention. Physical Exam Vital Signs: Temp Pulse Resp BP Pulse Ox 97.6 F 71 20 148/74 H 96 01/12/19 08:17 01/12/19 08:17 01/12/19 08:17 01/12/19 08:17 01/12/19 08:17 Intake & Output 01/11/19 01/12/19 01/13/19 06:59 06:59 06:59 Intake Total 794 1117 Output Total 1275 2625 Balance -481 -1508 Weight 134 kg 133 kg General appearance: PRESENT: no acute distress, well-developed, well-nourished Head exam: PRESENT: atraumatic, normocephalic Eye exam: PRESENT: conjunctiva pink, EOMI, PERRLA. ABSENT: scleral icterus Ear exam: PRESENT: normal external ear exam Mouth exam: PRESENT: moist, tongue midline Neck exam: ABSENT: carotid bruit, JVD, lymphadenopathy, thyromegaly Respiratory exam: PRESENT: clear to auscultation almaz. ABSENT: rales, rhonchi, wheezes Cardiovascular exam: PRESENT: RRR. ABSENT: diastolic murmur, rubs, systolic murmur Pulses: PRESENT: normal dorsalis pedis pul Vascular exam: PRESENT: normal capillary refill GI/Abdominal exam: PRESENT: normal bowel sounds, soft. ABSENT: distended, guarding, mass, organolmegaly, rebound, tenderness Rectal exam: PRESENT: deferred Extremities exam: PRESENT: full ROM, +1 edema. ABSENT: calf tenderness, clubbing, pedal edema Neurological exam: PRESENT: alert, awake, oriented to person, oriented to place, oriented to time, oriented to situation, CN II-XII grossly intact. ABSENT: motor sensory deficit Psychiatric exam: PRESENT: appropriate affect, normal mood. ABSENT: homicidal ideation, suicidal ideation Skin exam: PRESENT: dry, intact, warm. ABSENT: cyanosis, rash Results Laboratory Results: 01/06/19 06:20 01/09/19 06:00 12/10/18 12/11/18 12/12/18 14:30 04:48 04:08 Troponin I 0.038 NT-Pro-B Natriuret Pep 8520 H 7630 H 8760 H 03/27/19 03/29/19 04/04/19 04:35 05:15 04:16 Troponin I NT-Pro-B Natriuret Pep 09680 H 6410 H 53336 H 12/23/18 01/04/19 06:30 20:00 Troponin I NT-Pro-B Natriuret Pep 99810 H 98176 H Impressions: Chest CT 12/20/18 00:00 IMPRESSION: Grossly stable appearance of the chest with small bilateral effusions, left greater than right and associated bibasilar consolidation, likely atelectasis. Patchy additional bilateral ground-glass opacities, likely infectious/inflammatory. Coronary atherosclerosis. Hepatic steatosis. Thoracentesis Ultrasound 12/23/18 09:52 IMPRESSION: SUCCESSFUL THORACENTESIS USING ULTRASOUND GUIDANCE. Chest X-Ray 01/04/19 00:00 IMPRESSION: Increasing airspace disease on the left. There is volume loss most consistent with atelectasis. There are bilateral pleural effusions left greater than right. Minimal right basilar airspace disease could represent asymmetric edema, pneumonia or atelectasis. Hip/Pelvis X-Ray 01/10/19 00:00 IMPRESSION: Osteoarthritis of both hips
[2019-01-12] MEDS ORDERED: OXYCODONE HCL SR 10 MG TABLET PO PRN (11:34)
[2019-01-12] MEDS ORDERED: OXYCODONE HCL IR 5 MG TABLET PO PRN ×2 (11:42→12:00)
[2019-01-12 16:32] VITALS: BP 118/41
== END 2019-01-12 19:20 | DRG 871 ==
LOC: ER 14:01 → EH 16:43 → ICU 21:55 → 3S 12-22 14:44
PROVIDERS: ADMIT Family Medicine; ATTEND Internal Medicine
PROC: 02HV33Z Insertion of Infusion Device into Superior Vena Cava, Percutaneous Approach (ICD-10-PCS; 2018-12-12)
PROC: 30233N1 Transfusion of Nonautologous Red Blood Cells into Peripheral Vein, Percutaneous Approach (ICD-10-PCS; 2018-12-21)
PROC: 0W9B3ZZ Drainage of Left Pleural Cavity, Percutaneous Approach (ICD-10-PCS; 2018-12-23)
PROC: 5A09357 Assistance with Respiratory Ventilation, Less than 24 Consecutive Hours, Continuous Positive Airway Pressure (ICD-10-PCS; principal; 2019-01-06)
DX: A41.9 Sepsis, unspecified organism (principal); J15.211 Pneumonia due to Methicillin susceptible Staphylococcus aureus; J96.22 Acute and chronic respiratory failure with hypercapnia; J96.21 Acute and chronic respiratory failure with hypoxia; R57.1 Hypovolemic shock; I50.43 Acute on chronic combined systolic (congestive) and diastolic (congestive) heart failure; J15.6 Pneumonia due to other Gram-negative bacteria; N17.9 Acute kidney failure, unspecified; J90 Pleural effusion, not elsewhere classified; Z68.41 Body mass index [BMI] 40.0-44.9, adult; L89.152 Pressure ulcer of sacral region, stage 2; I95.9 Hypotension, unspecified; E66.01 Morbid (severe) obesity due to excess calories; I48.2 Chronic atrial fibrillation; I11.0 Hypertensive heart disease with heart failure; E83.51 Hypocalcemia; E88.09 Other disorders of plasma-protein metabolism, not elsewhere classified; J44.9 Chronic obstructive pulmonary disease, unspecified; Z79.891 Long term (current) use of opiate analgesic; Y95 Nosocomial condition; G89.29 Other chronic pain; E16.2 Hypoglycemia, unspecified; Z79.01 Long term (current) use of anticoagulants; I25.10 Atherosclerotic heart disease of native coronary artery without angina pectoris; E03.9 Hypothyroidism, unspecified; B96.20 Unspecified Escherichia coli [E. coli] as the cause of diseases classified elsewhere; B95.7 Other staphylococcus as the cause of diseases classified elsewhere; M19.90 Unspecified osteoarthritis, unspecified site; Z98.84 Bariatric surgery status; Z96.653 Presence of artificial knee joint, bilateral; Z87.891 Personal history of nicotine dependence; N40.1 Benign prostatic hyperplasia with lower urinary tract symptoms; R35.0 Frequency of micturition; Z87.01 Personal history of pneumonia (recurrent)
CPT/HCPCS: 32555; 36415; 36430; 36600; 71045; 71046; 71250; 80048; 80053; 80162; 80202; 81001; 82150; 82272; 82330; 82533; 82565; 82803; 82945; 82962; 83605; 83615; 83735; 83880; 84100; 84155; 84157; 84439; 84443; 84484; 85025; 85027; 85610; 85730; 86850; 86900; 86901; 86920; 87015; 87040; 87045; 87070; 87075; 87077; 87086; 87088; 87101; 87116; 87186; 87205; 87206; 87493; 89050; 93005; 93010; 93306; 93321; 94640; 94660; 94667; 94668; 94799; 96361; 96365; 99291; C1751; C1758; J0696; J1160; J1642; J1644; J1720; J1940; J2370; J2543; J3370; J3490; J7030; J7040; J7050; J7060; J7120; J7512; J7620; P9016; P9047

== ENCOUNTER 2019-02-21 11:26 | Inpatient (IN) | payer OTHER, MEDICARE ==
--- NOTE | 2019-02-21 12:03 | ER Document Report ---
ED General - General Chief Complaint: Arrhythmia Stated Complaint: BODY PAIN Time Seen by Provider: 02/21/19 11:55 Primary Care Provider: DIMITRIOS CUELLO MD [NO LOCAL MD] - Follow up as needed Notes: This is a 68-year-old male with multiple comorbid conditions. Recent hospitalization for pneumonia. Outpatient rehab at [facility]. Now at home and followed by home health. They were concerned because his heart was rapid and irregular and he was having a hard time breathing. On arrival to the emergency department patient was noted to have oxygen saturations in the mid 80s. A. fib with RVR on the monitor. Patient was immediately assessed at bedside. Appeared pale, tachypneic and tachycardic but mental status is intact. Oxygen saturations are 91% on a Venturi mask. BiPAP ordered. TRAVEL OUTSIDE OF THE [place] IN LAST 30 DAYS: No - HPI Onset: This morning Onset/Duration: Gradual, Constant - Related Data Allergies/Adverse Reactions: No Known Allergies Allergy (Verified 09/21/18 10:36) Past Medical History - General Information source: Patient, Relative - Social History Smoking Status: Former Smoker Frequency of alcohol use: None Drug Abuse: None Lives with: Family Family History: Reviewed & Not Pertinent - Past Medical History Cardiac Medical History: Reports: Hx Atrial Fibrillation, Hx Coronary Artery Di sease - A-FIB Denies: Hx Heart Attack, Hx Hypertension Pulmonary Medical History: Reports: Hx COPD, Hx Pneumonia Denies: Hx Asthma, Hx Bronchitis Neurological Medical History: Denies: Hx Cerebrovascular Accident, Hx Seizures Endocrine Medical History: Reports: Hx Hypothyroidism Renal/ Medical History: Denies: Hx Peritoneal Dialysis Musculoskeletal Medical History: Reports Hx Arthritis - DDD Skin Medical History: Denies Hx Eczema, Denies Hx Psoriasis Traumatic Medical History: Denies: Hx Pneumothorax Past Surgical History: Reports: Hx Gastric Bypass Surgery - 1993, Hx Orthopedic Surgery - Herniated Disc Repair, Bilateral Knee Replacement - Immunizations Hx Diphtheria, Pertussis, Tetanus Vaccination: Yes Hx Pneumococcal Vaccination: 07/20/09 Review of Systems - Review of Systems Notes: Constitutional: denies: Chills, Diaphoresis, Fever, +Malaise, +Weakness EENT: denies: Eye discharge, Blurred vision, Tearing, Double vision, Nose congestion, Nose discharge, Throat swelling, Mouth pain Cardiovascular: Patient denies any chest pain but does complain of palpitations, heart racing, dyspnea. Dyspnea on exertion. Respiratory: denies: Cough, Hurts to breathe, Wheezing, +Shortness of breath Gastrointestinal: denies: Abdominal pain, Diarrhea, Nausea, Vomiting, Black stools, bright red blood in stool Genitourinary: denies: Burning, Dysuria, Discharge, Frequency, Flank pain, Hematuria Musculoskeletal: denies: Joint pain, Joint swelling, Muscle pain, Muscle stiffness, back pain Hematologic/Lymphatic: denies: Anemia, Easy bleeding, Easy bruising, Blood clots Neurological/Psychological: denies: Confusion, Dementia, Depression, Loss of consciousness Skin: No lesions, no masses, no skin breakdown, no abscesses Physical Exam - Vital signs Vitals: Pulse Ox 89 L 02/21/19 11:29 Interpretation: Tachycardic, Hypoxic, Tachypneic - General General appearance: Appears well, Alert - HEENT Head: Normocephalic, Atraumatic Eyes: Normal Pupils: PERRL - Respiratory Respiratory status: Respiratory distress Chest status: Nontender Breath sounds: Decreased air movement, Nonproductive cough, Rhonchi - At the bilateral bases - Cardiovascular Rhythm: Irregularly irregular, Tachycardia Murmur: No - Abdominal Inspection: Normal Distension: No distension Bowel sounds: Normal Tenderness: Nontender Organomegaly: No organomegaly - Back Back: Normal, Nontender - Extremities General upper extremity: Normal inspection, Nontender, Normal color, Normal ROM, Normal temperature General lower extremity: Normal inspection, Nontender, Normal color, Normal ROM, Normal temperature, Normal weight bearing. No: Ray's sign - Neurological Neuro grossly intact: Yes Cognition: Normal Orientation: AAOx4 [place] Coma Scale Eye Opening: Spontaneous [place] Coma Scale Verbal: Oriented [place] Coma Scale Motor: Obeys Commands [place] Coma Scale Total: 15 Speech: Normal Motor strength normal: LUE, RUE, LLE, RLE Sensory: Normal - Psychological Associated symptoms: Normal affect, Normal mood - Skin Skin Temperature: Warm Skin Moisture: Dry Skin Color: Pale Course - Re-evaluation Re-evalutation: 02/21/19 15:12 Laboratory 02/21/19 02/21/19 02/21/19 12:18 12:18 12:18 WBC 19.7 H RBC 4.07 L Hgb 12.5 L Hct 38.8 MCV 95 MCH 30.8 MCHC 32.3 RDW 16.1 H Plt Count 350 Total Counted 100 Seg Neutrophils % Not Reportable Seg Neuts % (Manual) 81 H Band Neutrophils % 8 H Lymphocytes % Not Reportable Lymphocytes % (Manual) 7 L Monocytes % Not Reportable Monocytes % (Manual) 4 Eosinophils % Not Reportable Eosinophils % (Manual) 0 Basophils % Not Reportable Basophils % (Manual) 0 Absolute Neutrophils Not Reportable Abs Neuts (Manual) 17.5 H Absolute Lymphocytes Not Reportable Abs Lymphs (Manual) 1.4 Absolute Monocytes Not Reportable Abs Monocytes (Manual) 0.8 Absolute Eosinophils Not Reportable Absolute Eos (Manual) 0.0 Absolute Basophils Not Reportable Abs Basophils (Manual) 0.0 Platelet Comment ADEQUATE Hypochromasia 1+ Anisocytosis 1+ Stomatocytes 1+ Carbonic Acid HCO3/H2CO3 Ratio ABG pH ABG pCO2 ABG pO2 ABG HCO3 ABG Total CO2 ABG O2 Saturation ABG Base Excess FiO2 Sodium 132.7 L Potassium 5.2 H Chloride 92 L Carbon Dioxide 30 Anion Gap 11 BUN 18 Creatinine 0.91 Est GFR ( Amer) > 60 Est GFR (Non-Af Amer) > 60 Glucose 109 Lactic Acid Calcium 8.6 Total Bilirubin 1.6 H Direct Bilirubin 0.8 H Neonat Total Bilirubin Not Reportable Neonat Direct Bilirubin Not Reportable Neonat Indirect Bili Not Reportable AST 49 ALT 46 Alkaline Phosphatase 120 Creatine Kinase < 20 L CK-MB (CK-2) 0.41 Troponin I < 0.012 NT-Pro-B Natriuret Pep 1800 H Total Protein 5.9 L Albumin 2.8 L 02/21/19 02/21/19 12:18 12:18 WBC RBC Hgb Hct MCV MCH MCHC RDW Plt Count Total Counted Seg Neutrophils % Seg Neuts % (Manual) Band Neutrophils % Lymphocytes % Lymphocytes % (Manual) Monocytes % Monocytes % (Manual) Eosinophils % Eosinophils % (Manual) Basophils % Basophils % (Manual) Absolute Neutrophils Abs Neuts (Manual) Absolute Lymphocytes Abs Lymphs (Manual) Absolute Monocytes Abs Monocytes (Manual) Absolute Eosinophils Absolute Eos (Manual) Absolute Basophils Abs Basophils (Manual) Platelet Comment Hypochromasia Anisocytosis Stomatocytes Carbonic Acid 1.07 HCO3/H2CO3 Ratio 24:1 ABG pH 7.49 H ABG pCO2 35.5 ABG pO2 60.6 L ABG HCO3 26.6 H ABG Total CO2 27.7 H ABG O2 Saturation 93.2 L ABG Base Excess 3.4 FiO2 50% Sodium Potassium Chloride Carbon Dioxide Anion Gap BUN Creatinine Est GFR ( Amer) Est GFR (Non-Af Amer) Glucose Lactic Acid 1.7 Calcium Total Bilirubin Direct Bilirubin Neonat Total Bilirubin Neonat Direct Bilirubin Neonat Indirect Bili AST ALT Alkaline Phosphatase Creatine Kinase CK-MB (CK-2) Troponin I NT-Pro-B Natriuret Pep Total Protein Albumin Chest X-Ray 02/21/19 11:29 IMPRESSION: Interval development of marked volume loss in the left lower lobe. Increasing right basilar opacities. 02/21/19 15:15 Patient with infiltrates on chest x-ray, elevated WBC count, hypoxia. Getting a CTA however starting on antibiotics at this time. Consulted the hospitalist. Agrees to admit at this time. - Vital Signs Vital signs: Temp Pulse Resp BP Pulse Ox 98.4 F 17 105/80 94 02/21/19 11:39 02/21/19 13:00 02/21/19 12:01 02/21/19 12:18 - Laboratory Result Diagrams: 02/21/19 12:18 02/21/19 12:18 Laboratory results interpreted by me: 02/21/19 02/21/19 02/21/19 12:18 12:18 12:18 WBC 19.7 H RBC 4.07 L Hgb 12.5 L RDW 16.1 H Seg Neuts % (Manual) 81 H Band Neutrophils % 8 H Lymphocytes % (Manual) 7 L Abs Neuts (Manual) 17.5 H ABG pH ABG pO2 ABG HCO3 ABG Total CO2 ABG O2 Saturation Sodium 132.7 L Potassium 5.2 H Chloride 92 L Total Bilirubin 1.6 H Direct Bilirubin 0.8 H Creatine Kinase < 20 L NT-Pro-B Natriuret Pep 1800 H Total Protein 5.9 L Albumin 2.8 L 02/21/19 12:18 WBC RBC Hgb RDW Seg Neuts % (Manual) Band Neutrophils % Lymphocytes % (Manual) Abs Neuts (Manual) ABG pH 7.49 H ABG pO2 60.6 L ABG HCO3 26.6 H ABG Total CO2 27.7 H ABG O2 Saturation 93.2 L Sodium Potassium Chloride Total Bilirubin Direct Bilirubin Creatine Kinase NT-Pro-B Natriuret Pep Total Protein Albumin Critical Care Note - Critical Care Note Total time excluding time spent on procedures (mins): 60 Comments: Patient hypoxic with atrial fibrillation with rapid ventricular response. Immediately ordered BiPAP. Blood gas. We will do a rectal exam to check for guaiac stool as this could be a source of his weakness as he is quite pale and on blood thinners. Discharge - Discharge Clinical Impression: Acute respiratory failure with hypoxia, Hyperkalemia, Hyponatremia Pneumonia of both lower lobes Qualifiers: Pneumonia type: due to unspecified organism Qualified Code(s): J18.1 - Lobar pneumonia, unspecified organism Congestive heart failure (CHF) Qualifiers: Heart failure type: unspecified Heart failure chronicity: unspecified Qualified Code(s): I50.9 - Heart failure, unspecified Condition: Good Disposition: ADMITTED INPATIENT Admitting Provider: Ruchi (Hospitalist) Unit Admitted: IMCU Referrals: DIMITRIOS CUELLO MD [NO LOCAL MD] - Follow up as needed
[2019-02-21] MEDS ORDERED: IPRATROPIUM/ALBUTEROL 0.5-2.5 MG/3 ML AMPUL NEB ONE (12:04)
--- NOTE | 2019-02-21 12:05 | RADIOLOGY REPORT (SQ) ---
EXAM DESCRIPTION: CHEST SINGLE VIEW COMPLETED DATE/TIME: 02/21/2019 11:56 am REASON FOR STUDY: a fib bed 9 COMPARISON: 01/04/2019 EXAM PARAMETERS: NUMBER OF VIEWS: One view. TECHNIQUE: Single frontal radiographic view of the chest acquired. RADIATION DOSE: NA LIMITATIONS: None. FINDINGS: LUNGS AND PLEURA: Interval development of marked volume loss in the left lower lobe with c ollapse of the left lower lobe. Parenchymal opacities at the right base slightly more prominent than previous. MEDIASTINUM AND HILAR STRUCTURES: No masses. Contour normal. HEART AND VASCULAR STRUCTURES: Heart enlarged. No overt failure. BONES: No acute findings. HARDWARE: None in the chest. OTHER: No other significant finding. IMPRESSION: Interval development of marked volume loss in the left lower lobe. Increasing right bas ilar opacities. TECHNICAL DOCUMENTATION: JOB ID: [id number] [employer]- All Rights Reserved Reading location - IP/workstation name: [email or web address]
[2019-02-21 12:40] LABS: HEMATOCRIT 38.8 % (37.9-51.0); HEMOGLOBIN 12.5 g/dL (13.5-17.0); MEAN CORPUSCULAR HEMOGLOBIN 30.8 pg (27.0-33.4); MEAN CORPUSCULAR HGB CONC 32.3 g/dL (32.0-36.0); MEAN CORPUSCULAR VOLUME 95 fl (80-97); PLATELET COUNT 350 10^3/uL (150-450); RED BLOOD COUNT 4.07 10^6/uL (4.35-5.55); RED CELL DISTRIBUTION WIDTH 16.1 % (11.5-14.0); WHITE BLOOD COUNT 19.7 10^3/uL (4.0-10.5)
[2019-02-21 12:43] LABS: ARTERIAL BLOOD BASE EXCESS 3.4 mmol/L; ARTERIAL BLOOD H2CO3 1.07 mmol/L (1.05-1.35); ARTERIAL BLOOD HCO3 26.6 mmol/L (20-24); ARTERIAL BLOOD O2 SATURATION 93.2 % (94-98); ARTERIAL BLOOD PCO2 35.5 mmHg (35-45); ARTERIAL BLOOD PH 7.49 (7.35-7.45); ARTERIAL BLOOD PO2 60.6 mmHg (80-100); ARTERIAL BLOOD TOTAL CO2 27.7 mmol/L (23-27)
[2019-02-21 13:01] LABS: ALANINE AMINOTRANSFERASE 46 U/L (21-72); ALBUMIN 2.8 g/dL (3.5-5.0); ALKALINE PHOSPHATASE 120 U/L (38-126); ANION GAP 11 (5-19); ASPARTATE AMINO TRANSFERASE 49 U/L (17-59); BILIRUBIN,DIRECT 0.8 mg/dL (0.0-0.4); BILIRUBIN,TOTAL 1.6 mg/dL (0.2-1.3); BLOOD UREA NITROGEN 18 mg/dL (7-20); CALCIUM 8.6 mg/dL (8.4-10.2); CARBON DIOXIDE 30 mmol/L (22-30); CHLORIDE 92 mmol/L (98-107); GLUCOSE 109 mg/dL (75-110); POTASSIUM 5.2 mmol/L (3.6-5.0); SODIUM 132.7 mmol/L (137-145); TOTAL PROTEIN 5.9 g/dL (6.3-8.2)
[2019-02-21 13:02] LABS: ARTERIAL BLOOD FIO2 50%
[2019-02-21 13:04] LABS: ABSOLUTE LYMPHOCYTES# (MANUAL) 1.4 10^3/uL (0.5-4.7); ABSOLUTE MONOCYTES # (MANUAL) 0.8 10^3/uL (0.1-1.4); BAND NEUTROPHILS % (MANUAL) 8 % (3-5); BASOPHILS % (MANUAL) 0 % (0-2); EOSINOPHILS % (MANUAL) 0 % (0-6); LYMPHOCYTES % (MANUAL) 7 % (13-45); MONOCYTES % (MANUAL) 4 % (3-13); SEGMENTED NEUTROPHILS % (MAN) 81 % (42-78); TOTAL CELLS COUNTED 100
[2019-02-21 13:05] LABS: ANISOCYTOSIS 1+; CREATINE KINASE < 20 U/L (55-170)
[2019-02-21 13:06] LABS: HYPOCHROMASIA 1+; STOMATOCYTES 1+
[2019-02-21 13:07] LABS: PLATELET COMMENT ADEQUATE
[2019-02-21 13:09] LABS: CREATINE KINASE MB 0.41 ng/mL (<4.55); NT PRO BNP 1800 pg/mL (5-900)
[2019-02-21] MEDS ORDERED: PIPERACILLIN/TAZOBACTAM 3.375 GM VIAL IV ONE (13:11)
[2019-02-21] MEDS ORDERED: VANCOMYCIN HCL INJ 1000 MG VIAL IV ONE (13:11)
[2019-02-21 13:13] LABS: TROPONIN I < 0.012 ng/mL
--- NOTE | 2019-02-21 13:19 | EKG REPORT ---
SEVERITY:- ABNORMAL ECG - ATRIAL FIBRILLATION LEFT AXIS DEVIATION ANTERIOR INFARCT, AGE INDETERMINATE : Confirmed by: Pablo Fernando MD 21-Feb-2019 13:19:08
[2019-02-21] MEDS ORDERED: VANCOMYCIN HCL INJ 1000 MG VIAL ONE (15:51)
--- NOTE | 2019-02-21 16:00 | RADIOLOGY REPORT (SQ) ---
EXAM DESCRIPTION: CTA CHEST COMPLETED DATE/TIME: 02/21/2019 3:41 pm REASON FOR STUDY: hypoxia, sob COMPARISON: Chest radiograph, 02/21/2019, CT chest, 12/20/2018 TECHNIQUE: CT scan of the chest performed using helical scanning technique with dynamic intravenous contrast injection. Images reviewed with lung, soft tissue and bone windows. Reconstructed coronal and sagittal MPR images reviewed. Additional 3 dimensional post-processing performed to develop Maximal Intensity Projection images (IA P). All images stored on PACS. All CT scanners at this facility use dose modulation, iterative reconstruction, and/or weight based d osing when appropriate to reduce radiation dose to as low as reasonably achievable (ALARA). [facility]: Dose Right [facility]: CareDose [facility]: Dose Right [facility]: Teradose 4D [facility]: [employer] CONTRAST TYPE AND DOSE: contrast/concentration: Isovue 350.00 mg/ml; Total Contrast Delivered: 86.0 ml; Total Saline Delivered: 58.3 ml Contrast bolus optimized for the pulmonary arteries. Not diagnostic for the aorta. RENAL FUNCTION: GFR > 60. RADIATION DOSE: CT Rad equipment meets quality standard of care and radiation dose reduction techniq ues were employed. CTDIvol: 36.8 - 65.6 mGy. DLP: 1491 mGy-cm. . LIMITATIONS: None. FINDINGS: LUNGS AND PLEURA: Small bilateral pleural effusions and associated atelectasis or consolid ation. There is extensive bilateral clustered heterogeneous pulmonary opacity most in in the right l corona and consolidations of the left upper lobe and right lung base. AORTA AND GREAT VESSELS: No aneurysm. Contrast bolus not optimized for the aorta. HEART: No pericardial effusion. No significant coronary artery calcifications. PULMONARY ARTERIES: No emboli visualized in the main pulmonary arteries or the segmental branches. HILAR AND MEDIASTINAL STRUCTURES: No identified masses or abnormal nodes. HARDWARE: None in the chest. UPPER ABDOMEN: Hepatic steatosis. THYROID AND OTHER SOFT TISSUES: No masses. No adenopathy. BONES: No acute or significant finding. 3D MIPS: Confirm above findings. OTHER: No other significant finding. IMPRESSION: 1. Negative examination for pulmonary embolism. 2. Small bilateral pleural effusions and associated atelectasis or consolidation. There is extensive bilateral clustered heterogeneous pulmonary opacity most in in the right lung and consolidations of the left upper lobe and right lung base. General constellation of findings is most consistent with m ultifocal infection. COMMENT: Quality ID # [id number]: Final reports with documentation of one or more dose reduction techniques (e.g., Automated exposure control, adjustment of the mA and/or kV according to patient size, use of iterative reconstruction technique) TECHNICAL DOCUMENTATION: JOB ID: [id number] [employer]- All Rights Reserved Reading location - IP/workstation name: [email or web address]
[2019-02-21] MEDS ORDERED: GUAIFENESIN SYRP 200 MG/10 ML UDC PO PRN (16:16)
[2019-02-21] MEDS ORDERED: ACETAMINOPHEN 325 MG TABLET PO PRN (16:16)
[2019-02-21] MEDS ORDERED: OXYCODONE HCL IR 5 MG TABLET PO PRN (16:23)
[2019-02-21] MEDS ORDERED: (PENDING PHARMACY ID) (Ondansetron Hcl [Zofran 4 Mg Tablet] 4 MG) PO PRN (16:23)
[2019-02-21] MEDS ORDERED: VANCOMYCIN HCL 0 MG in DEXTROSE 5%-WATER 250 ML IV NR (16:30)
[2019-02-21] MEDS ORDERED: ONDANSETRON 4 MG TAB.RAPDIS PO PRN (16:42)
--- NOTE | 2019-02-21 17:04 | PDOC H&P ---
History of Present Illness Admission Date/PCP: 02/21/19 15:24 BRAN CERNA PA-C Patient complains of: shortness of breath History of Present Illness: AMELIA BOB is a 68 year old male with a PMH of chronic atrial fibrillation, anticoagulated on Eliquis, CHF, COPD, GERD, opiate dependent chronic pain, obesity, and debility who presented to the emergency department today with a complaint of shortness of breath. The patient's reports that he has been having difficulty swallowing with nausea and vomiting related to esophageal stricture/previous gastric banding procedure, however, patient denies. He does endorse a generalized fatigue; has had profound debility since discharge from SNF several weeks ago; only able to stand at bedside with assistance x2. During home health visit today, nurse found the patient to be hypoxic in the low 80s on room air with an elevated heart rate. On arrival patient was found to be in atrial fibrillation with a rate of 108, hypoxia (SPO2 85% on room air), with tachypnea (RR 21). Evaluation by the emergency department provider revealed leukocytosis (WBCs 19.7), respiratory alkalosis with hypoxia, mild hyponatremia and hyperkalemia, proBNP 1800 (below baseline), EKG demonstrating atrial fibrillation, chest x-ray showed increased right basilar opacities with development of volume loss to the left lower lobe. Follow-up CTA Chest demonstrated bilateral mild pleural effusions with extensive multifocal consolidations consistent with infection. He has been started on IV vancomycin and Zosyn and is referred to the hospitalist service for admission and management of the above-stated complaints and findings. Past Medical History Cardiac Medical History: Reports: Atrial Fibrillation, Congestive Heart Failure, Coronary Artery Disease - A-FIB Denies: Myocardial Infarction, Hypertension Pulmonary Medical History: Reports: Chronic Obstructive Pulmonary Disease (COPD), Intubation, Pneumonia, Respiratory Failure Denies: Asthma, Bronchitis EENT Medical History: Reports: None Neurological Medical History: Denies: Seizures Endocrine Medical History: Reports: Hypothyroidism, Obesity Renal/ Medical History: Reports: None Malignancy Medical History: Reports: None GI Medical History: Reports: Gastroesophageal Reflux Disease Musculoskeltal Medical History: Reports: Arthritis - DDD Skin Medical History: Denies: Eczema, Psoriasis Psychiatric Medical History: Reports: Depression Traumatic Medical History: Denies: Pneumothorax Hematology: Reports: Anemia Denies: Sickle Cell Disease Past Surgical History Past Surgical History: Reports: Gastric Bypass Surgery - 1993, Orthopedic Surgery - Herniated Disc Repair, Bilateral Knee Replacement Social History Information Source: Patient, Relative Lives with: Family Smoking Status: Former Smoker Frequency of Alcohol Use: None Hx Recreational Drug Use: No Drugs: None Hx Prescription Drug Abuse: No - Advance Directive Resuscitation Status: Full Code Surrogate healthcare decision maker:: Patient's Family History Family History: Reviewed & Not Pertinent Parental Family History Reviewed: Yes Children Family History Reviewed: Yes Sibling(s) Family History Reviewed.: Yes Medication/Allergy Home Medications: Acetaminophen [Tylenol 325 mg Tablet] 650 mg PO Q4HP PRN 02/21/19 Albuterol Sulfate [Ventolin 0.083% Neb 2.5 mg/3 mL Ampul] 2.5 mg NEB RTTIDP PRN 02/21/19 Apixaban [Eliquis 5 mg Tablet] 5 mg PO BID 02/21/19 Bupropion HCl [Wellbutrin Xl 300mg 24hr Tablet] 300 mg PO DAILY 02/21/19 Digoxin [Lanoxin 0.125 mg Tablet] 0.125 mg PO DAILY 02/21/19 Diltiazem HCl [Cardizem] 120 mg PO DAILY 02/21/19 Fluticasone Propion/Salmeterol [Wixela 250-50 Inhub] 1 puff IH BID 02/21/19 Gabapentin [Neurontin 300 mg Capsule] 300 mg PO QPM 02/21/19 Mv-Mins/Folic/Lycopene/Ginkgo [One Daily For Men 50+ Adv Tab] 1 tab PO DAILY 02/21/19 Ondansetron HCl [Zofran 4 mg Tablet] 4 mg PO Q4HP PRN 02/21/19 Oxycodone HCl [Oxy-Ir 5 mg Tablet] 5 mg PO Q8HP PRN 02/21/19 Pantoprazole Sodium [Protonix [address] Tablet] 40 mg PO QAM 02/21/19 Allergies/Adverse Reactions: No Known Allergies Allergy (Verified 09/21/18 10:36) Review of Systems Constitutional: PRESENT: fatigue, weakness. ABSENT: chills, fever(s), headache(s), weight gain, weight loss Eyes: ABSENT: visual disturbances Ears: ABSENT: hearing changes Cardiovascular: ABSENT: chest pain, dyspnea on exertion, edema, orthropnea, palpitations Respiratory: PRESENT: cough, dyspnea. ABSENT: hemoptysis, sputum Gastrointestinal: PRESENT: dysphagia, vomiting. ABSENT: abdominal pain, constipation, diarrhea, hematemesis, hematochezia, nausea Genitourinary: PRESENT: other - Frequency, incontinence, foul-smelling urine. ABSENT: dysuria, hematuria Musculoskeletal: PRESENT: muscle weakness. ABSENT: joint swelling Integumentary: ABSENT: rash, wounds Neurological: ABSENT: abnormal gait, abnormal speech, confusion, dizziness, focal weakness, syncope Psychiatric: ABSENT: anxiety, depression, homidical ideation, suicidal ideation Endocrine: ABSENT: cold intolerance, heat intolerance, polydipsia, polyuria Hematologic/Lymphatic: ABSENT: easy bleeding, easy bruising Physical Exam Vital Signs: Temp Pulse Resp BP Pulse Ox 98.4 F 17 105/80 94 02/21/19 11:39 02/21/19 13:00 02/21/19 12:01 02/21/19 12:18 Intake & Output 02/20/19 02/21/19 02/22/19 06:59 06:59 06:59 Weight 114.54 kg General appearance: PRESENT: no acute distress, obese, well-developed, well- nourished, other - Chronically ill and appearing older than stated age Head exam: PRESENT: atraumatic, normocephalic Eye exam: PRESENT: conjunctiva pink, EOMI, PERRLA. ABSENT: scleral icterus Ear exam: PRESENT: normal external ear exam Mouth exam: PRESENT: moist, tongue midline Teeth exam: PRESENT: edentulous Neck exam: ABSENT: carotid bruit, JVD, lymphadenopathy, thyromegaly Respiratory exam: PRESENT: decreased breath sounds - Bibasilar, prolonged expiratory phas, rhonchi - Lt>Rt, symmetrical, unlabored, other - Currently on BiPAP. ABSENT: rales, wheezes Cardiovascular exam: PRESENT: irregular rhythm, +S1, +S2. ABSENT: diastolic murmur, rubs, systolic murmur Pulses: PRESENT: normal dorsalis pedis pul Vascular exam: PRESENT: normal capillary refill GI/Abdominal exam: PRESENT: normal bowel sounds, soft. ABSENT: distended, guarding, mass, organolmegaly, rebound, tenderness Rectal exam: PRESENT: deferred Extremities exam: PRESENT: full ROM - Moves all extremities spontaneously. ABSENT: calf tenderness, clubbing, pedal edema Musculoskeletal exam: ABSENT: ambulatory - Per has not been ambulatory for several months; can stand to bedside with assistance Neurological exam: PRESENT: alert, awake, oriented to person, oriented to place, oriented to time, oriented to situation, CN II-XII grossly intact, other - Fatigued. ABSENT: motor sensory deficit Psychiatric exam: PRESENT: appropriate affect, normal mood. ABSENT: homicidal ideation, suicidal ideation Skin exam: PRESENT: dry, intact, warm. ABSENT: cyanosis, rash Results Laboratory Results: 02/21/19 12:18 02/21/19 12:18 02/21/19 02/21/19 02/21/19 12:18 12:18 12:18 WBC 19.7 H RBC 4.07 L Hgb 12.5 L Hct 38.8 MCV 95 MCH 30.8 MCHC 32.3 RDW 16.1 H Plt Count 350 Seg Neutrophils % Not Reportable Lymphocytes % Not Reportable Monocytes % Not Reportable Eosinophils % Not Reportable Basophils % Not Reportable Absolute Neutrophils Not Reportable Absolute Lymphocytes Not Reportable Absolute Monocytes Not Reportable Absolute Eosinophils Not Reportable Absolute Basophils Not Reportable Carbonic Acid 1.07 HCO3/H2CO3 Ratio 24:1 ABG pH 7.49 H ABG pCO2 35.5 ABG pO2 60.6 L ABG HCO3 26.6 H ABG O2 Saturation 93.2 L ABG Base Excess 3.4 FiO2 50% Sodium 132.7 L Potassium 5.2 H Chloride 92 L Carbon Dioxide 30 Anion Gap 11 BUN 18 Creatinine 0.91 Est GFR ( Amer) > 60 Est GFR (Non-Af Amer) > 60 Glucose 109 Lactic Acid Calcium 8.6 Total Bilirubin 1.6 H AST 49 ALT 46 Alkaline Phosphatase 120 Total Protein 5.9 L Albumin 2.8 L 02/21/19 12:18 WBC RBC Hgb Hct MCV MCH MCHC RDW Plt Count Seg Neutrophils % Lymphocytes % Monocytes % Eosinophils % Basophils % Absolute Neutrophils Absolute Lymphocytes Absolute Monocytes Absolute Eosinophils Absolute Basophils Carbonic Acid HCO3/H2CO3 Ratio ABG pH ABG pCO2 ABG pO2 ABG HCO3 ABG O2 Saturation ABG Base Excess FiO2 Sodium Potassium Chloride Carbon Dioxide Anion Gap BUN Creatinine Est GFR ( Amer) Est GFR (Non-Af Amer) Glucose Lactic Acid 1.7 Calcium Total Bilirubin AST ALT Alkaline Phosphatase Total Protein Albumin 02/21/19 02/21/19 12:18 12:18 Creatine Kinase < 20 L CK-MB (CK-2) 0.41 Troponin I < 0.012 NT-Pro-B Natriuret Pep 1800 H Impressions: Chest X-Ray 02/21/19 11:29 IMPRESSION: Interval development of marked volume loss in the left lower lobe. Increasing right basilar opacities. Chest/Abdomen CTA 02/21/19 13:11 IMPRESSION: 1. Negative examination for pulmonary embolism. 2. Small bilateral pleural effusions and associated atelectasis or consolidatio n. There is extensive bilateral clustered heterogeneous pulmonary opacity most in in the right lung and consolidations of the left upper lobe and right lung base. General constellation of findings is most consistent with multifocal infection. Assessment and Plan - Diagnosis (1) Multifocal pneumonia Is this a current diagnosis for this admission?: Yes Plan: Patient is admitted to [facility] on continuous cardiac telemetry. Blood and sputum cultures are pending. He is empirically placed on IV vancomycin, Levaquin, and Zosyn for treatment of healthcare associated pneumonia with MRSA risk factors. Supplemental oxygen and BiPAP as needed to maintain saturations >88% Schedule and as needed nebulizer treatments. Mucinex twice daily. Chest physiotherapy twice daily. Incentive spirometer and flutter valve to bedside. (2) Acute respiratory failure with hypoxia Is this a current diagnosis for this admission?: Yes Plan: Secondary to #1. Management as above. (3) Pleural effusion Is this a current diagnosis for this admission?: Yes Plan: Noted on CTA of the chest. Likely secondary to multifocal pneumonia, may also be a consequence of his CHF. Primary management as above. (4) CHF (congestive heart failure) Qualifiers: Heart failure type: unspecified Heart failure chronicity: unspecified Qualified Code(s): I50.9 - Heart failure, unspecified Is this a current diagnosis for this admission?: Yes Plan: Stable and without exacerbation at this time. Echocardiogram (November 2017) was suboptimal but did demonstrate LVEF low normal with mild concentric LVH, severely debilitated left atrium, and moderately dilatated right atrium. We will continue his home dose Digoxin, diltiazem, statin therapy, and Eliquis. Cardiac diet, strict I&O's, daily weights. (5) Hypothyroidism Is this a current diagnosis for this admission?: Yes Plan: We will continue patient's home dose once reconciled. (6) Opiate dependence due to chronic pain Is this a current diagnosis for this admission?: Yes Plan: We will continue the patient's home dose oxycodone 5 mg 3 times daily as needed for pain. (7) Physical deconditioning Is this a current diagnosis for this admission?: Yes Plan: PT/OT evaluations requested. Fall precautions. (8) Obesity (BMI 35.0-39.9 without comorbidity) Is this a current diagnosis for this admission?: Yes Plan: Dietary discretion is advised. Patient was placed on a cardiac diet. - Time Time Spent with patient: 35 or more minutes Medications reviewed and adjusted accordingly: Yes Anticipated discharge: Home with Homehealth Within: within 72 hours - Inpatient Certification Based on my medical assessment, after consideration of the patient's comorbidities, presenting symptoms, or acuity I expect that the services needed warrant INPATIENT care.: Yes I certify that my determination is in accordance with my understanding of Medicare's requirements for reasonable and necessary INPATIENT services [42 CFR 412.3e].: Yes Medical Necessity: Need For IV Fluids, Need For Continuous Telemetry Monitoring, Need for Nebulizer Therapy and Monitoring of Response, Need for IV Antibiotics
[2019-02-21] MEDS ORDERED: SALMETEROL IH SCH (18:00)
[2019-02-21] MEDS ORDERED: FLUTICASONE PROPION IH SCH (18:00)
[2019-02-21 18:07] LABS: APPEARANCE,URINE CLOUDY; BILIRUBIN,URINE SMALL (NEGATIVE); GLUCOSE, URINE NEGATIVE (NEGATIVE); KETONES,URINE NEGATIVE (NEGATIVE); LEUKOCYTE ESTERASE,URINE MODERATE (NEGATIVE); NITRITE,URINE NEGATIVE (NEGATIVE); PROTEIN,URINE 30 mg/dL (NEGATIVE); URINE SPECIFIC GRAVITY 1.038
[2019-02-21 18:08] LABS: COLOR,URINE YELLOW
[2019-02-21] MEDS: APIXABAN 5 MG TABLET PO SCH (18:25)
[2019-02-21] MEDS: LEVOFLOXACIN 750 MG/D5W RTU 750 MG/150 ML RTUPB IV SCH (18:25)
[2019-02-21] MEDS: GABAPENTIN 300 MG CAPSULE PO SCH (18:25)
[2019-02-21] MEDS: IPRATROPIUM/ALBUTEROL 0.5-2.5 MG/3 ML AMPUL NEB SCH (21:08)
[2019-02-21] MEDS: PIPERACILLIN SODIUM/TAZOBACTAM 3.375 GM in NORMAL SALINE 100 ML IV SCH (22:29)
[2019-02-21] MEDS: GUAIFENESIN 600 MG TABLET.SA PO SCH (22:29)
[2019-02-21] MEDS: BUPROPION HCL 100 MG TABLET PO SCH (22:29)
[2019-02-22] MEDS: IPRATROPIUM/ALBUTEROL 0.5-2.5 MG/3 ML AMPUL NEB SCH ×4 (02:04→20:36)
[2019-02-22] MEDS: PIPERACILLIN SODIUM/TAZOBACTAM 3.375 GM in NORMAL SALINE 100 ML IV SCH ×4 (03:20→22:55)
[2019-02-22] MEDS: VANCOMYCIN HCL 1,500 MG in DEXTROSE 5%-WATER 250 ML IV SCH ×2 (04:58→16:03)
[2019-02-22] MEDS: BUPROPION HCL 100 MG TABLET PO SCH ×3 (05:19→22:55)
[2019-02-22 06:01] LABS: ABSOLUTE LYMPHOCYTES (AUTO) 1.4 10^3/uL (0.5-4.7); ABSOLUTE MONOCYTES (AUTO) 0.4 10^3/uL (0.1-1.4); ABSOLUTE NEUT (AUTO) 5.2 10^3/uL (1.7-8.2); BASOPHILS % (AUTO) 0.5 % (0-2); EOSINOPHILS % (AUTO) 0.1 % (0-6); LYMPHOCYTES % (AUTO) 19.8 % (13-45); MEAN CORPUSCULAR HEMOGLOBIN 31.8 pg (27.0-33.4); MEAN CORPUSCULAR HGB CONC 33.9 g/dL (32.0-36.0); MEAN CORPUSCULAR VOLUME 94 fl (80-97); MONOCYTES % (AUTO) 5.3 % (3-13); PLATELET COUNT 188 10^3/uL (150-450); RED BLOOD COUNT 2.98 10^6/uL (4.35-5.55); RED CELL DISTRIBUTION WIDTH 15.7 % (11.5-14.0); SEGMENTED NEUTROPHILS % (AUTO) 74.3 % (42-78); TOTAL CELLS COUNTED % (AUTO) 100 %
[2019-02-22 06:14] LABS: CALCIUM 7.9 mg/dL (8.4-10.2)
[2019-02-22 06:15] LABS: ANION GAP 7 (5-19); BLOOD UREA NITROGEN 20 mg/dL (7-20); CARBON DIOXIDE 31 mmol/L (22-30); CHLORIDE 94 mmol/L (98-107); HEMOGLOBIN 9.5 g/dL (13.5-17.0); POTASSIUM 4.3 mmol/L (3.6-5.0); SODIUM 132.4 mmol/L (137-145)
[2019-02-22 06:21] LABS: GLUCOSE 61 mg/dL (75-110)
[2019-02-22] MEDS ORDERED: (PENDING PHARMACY ID) (Diltiazem Hcl [Cardizem] 120 MG) PO SCH (10:00)
[2019-02-22] MEDS: FLUTICASONE/VILANTEROL 200-25 MCG/DOSE IH SCH (10:08)
[2019-02-22] MEDS: DIGOXIN 0.125 MG TABLET PO SCH (10:10)
[2019-02-22] MEDS: MIDODRINE HCL 5 MG TABLET PO SCH ×3 (10:12→18:02)
[2019-02-22] MEDS: APIXABAN 5 MG TABLET PO SCH ×2 (10:14→18:02)
[2019-02-22] MEDS: GUAIFENESIN 600 MG TABLET.SA PO SCH ×2 (10:14→22:56)
[2019-02-22] MEDS: DILTIAZEM HCL 120 MG CAP.SR.24H PO SCH (10:14)
[2019-02-22] MEDS: PANTOPRAZOLE SODIUM 40 MG TABLET.DR PO SCH (10:14)
--- NOTE | 2019-02-22 17:26 | PDOC PROGRESS REPORT ---
Subjective Progress Note for:: 02/22/19 Subjective:: AMELIA BOB is a 68 year old male with a PMH of chronic atrial fibrillation, anticoagulated on Eliquis, CHF, COPD, GERD, opiate dependent chronic pain, obesity, and debility who was admitted for a multifocal healthcare associated pneumonia and UTI. Patient was seen on afternoon rounds. He is found resting in bed comfortably on supplemental oxygen via nasal cannula. He is noted to be alert and oriented x4. He reports that he is feeling much better today; denies dyspnea, does report slight productive cough, and otherwise well. He denies fever, chills, headache, dizziness, chest pain, palpitations, orthopnea, abdominal pain, nausea vomiting and diarrhea. He has no new questions or concerns. No concerns per nursing. Reason For Visit: PNEUMONIA Physical Exam Vital Signs: Temp Pulse Resp BP Pulse Ox 97.9 F 99 20 117/62 93 02/22/19 15:12 02/22/19 15:12 02/22/19 15:12 02/22/19 15:12 02/22/19 16:34 Pulse Oximeter Continuous Start: 02/21/19 16:17 Freq: RTQ4 Status: Active Protocol: Document 02/22/19 16:34 HCR (Rec: 02/22/19 16:35 HCR [id number]) Pulse Oximetry Assessment Oxygen Saturation (92-100) 93 Oxygen Flow Rate (L/min) 5 Oxygen Delivery Method Nasal Cannula Equipment Usage Equipment in Use Continuous SpO2 Machine # 11 Intake & Output 02/21/19 02/22/19 02/23/19 06:59 06:59 06:59 Intake Total 890 1825 Output Total 50 Balance 840 1825 Weight 101.1 kg General appearance: PRESENT: no acute distress, cooperative, obese, well- developed, well-nourished Head exam: PRESENT: atraumatic, normocephalic Eye exam: PRESENT: conjunctiva pink, EOMI, PERRLA. ABSENT: scleral icterus Ear exam: PRESENT: normal external ear exam Mouth exam: PRESENT: moist, tongue midline Teeth exam: PRESENT: edentulous Neck exam: ABSENT: carotid bruit, JVD, lymphadenopathy, thyromegaly Respiratory exam: PRESENT: decreased breath sounds - Lt > Rt, prolonged expiratory phas, symmetrical, unlabored, other - Supplemental oxygen by nasal cannula. ABSENT: rales, rhonchi, wheezes Cardiovascular exam: PRESENT: irregular rhythm, +S1, +S2. ABSENT: diastolic murmur, rubs, systolic murmur Pulses: PRESENT: normal dorsalis pedis pul Vascular exam: PRESENT: normal capillary refill GI/Abdominal exam: PRESENT: normal bowel sounds, soft. ABSENT: distended, guarding, mass, organolmegaly, rebound, tenderness Rectal exam: PRESENT: deferred Extremities exam: PRESENT: full ROM. ABSENT: calf tenderness, clubbing, pedal edema Musculoskeletal exam: ABSENT: ambulatory - Nonambulatory for several months; can stand to bedside with assistance Neurological exam: PRESENT: alert, awake, oriented to person, oriented to place, oriented to time, oriented to situation, CN II-XII grossly intact. ABSENT: motor sensory deficit Psychiatric exam: PRESENT: appropriate affect, normal mood. ABSENT: homicidal ideation, suicidal ideation Skin exam: PRESENT: dry, intact, warm. ABSENT: cyanosis, rash Results Laboratory Results: 02/22/19 05:26 02/22/19 05:26 02/21/19 02/22/19 02/22/19 17:28 05:26 05:26 WBC 7.0 RBC 2.98 L Hgb 9.5 L D Hct 28.0 L MCV 94 MCH 31.8 MCHC 33.9 RDW 15.7 H Plt Count 188 Seg Neutrophils % 74.3 Lymphocytes % 19.8 Monocytes % 5.3 Eosinophils % 0.1 Basophils % 0.5 Absolute Neutrophils 5.2 Absolute Lymphocytes 1.4 Absolute Monocytes 0.4 Absolute Eosinophils 0.0 Absolute Basophils 0.0 Sodium 132.4 L Potassium 4.3 Chloride 94 L Carbon Dioxide 31 H Anion Gap 7 BUN 20 Creatinine 1.08 Est GFR ( Amer) > 60 Est GFR (Non-Af Amer) > 60 Glucose 61 L Calcium 7.9 L Urine Color YELLOW Urine Appearance CLOUDY Urine pH 6.0 Ur Specific [place] 1.038 Urine Protein 30 H Urine Glucose (UA) NEGATIVE Urine Ketones NEGATIVE Urine Blood NEGATIVE Urine Nitrite NEGATIVE Ur Leukocyte Esterase MODERATE H Urine WBC (Auto) 126 Urine RBC (Auto) 1 02/21/19 02/21/19 02/21/19 12:18 12:18 18:06 Creatine Kinase < 20 L CK-MB (CK-2) 0.41 Troponin I < 0.012 < 0.012 NT-Pro-B Natriuret Pep 1800 H Impressions: Chest X-Ray 02/21/19 11:29 IMPRESSION: Interval development of marked volume loss in the left lower lobe. Increasing right basilar opacities. Chest/Abdomen CTA 02/21/19 13:11 IMPRESSION: 1. Negative examination for pulmonary embolism. 2. Small bilateral pleural effusions and associated atelectasis or consolidation. There is extensive bilateral clustered heterogeneous pulmonary opacity most in in the right lung and consolidations of the left upper lobe and right lung base. General constellation of findings is most consistent with multifocal infection. Assessment and Plan - Diagnosis (1) Multifocal pneumonia Is this a current diagnosis for this admission?: Yes Plan: Patient is admitted to [facility] on continuous cardiac telemetry. Blood cultures are negative at 24 hours. Sputum culture pending. He is empirically placed on IV vancomycin, Levaquin, and Zosyn for treatment of healthcare associated pneumonia with MRSA risk factors. Patient is afebrile and leukocytosis has resolved; will de-escalate antibiotics if this remains so tomorrow. Further antibiotic adjustments based upon culture results. Supplemental oxygen and BiPAP as needed to maintain saturations >88% Schedule and as needed nebulizer treatments. Mucinex twice daily. Chest physiotherapy twice daily. Incentive spirometer and flutter valve to bedside. (2) Acute respiratory failure with hypoxia Is this a current diagnosis for this admission?: Yes Plan: Improved; now maintaining oxygen saturations on supplemental oxygen via nasal ca nnula. Secondary to #1. Management as above. (3) Pleural effusion Is this a current diagnosis for this admission?: Yes Plan: Noted on CTA of the chest. Likely secondary to multifocal pneumonia, may also be a consequence of his CHF. Primary management as above. (4) CHF (congestive heart failure) Qualifiers: Heart failure type: unspecified Heart failure chronicity: unspecified Qualified Code(s): I50.9 - Heart failure, unspecified Is this a current diagnosis for this admission?: Yes Plan: Stable and without exacerbation at this time. Echocardiogram (November 2017) was suboptimal but did demonstrate LVEF low normal with mild concentric LVH, severely debilitated left atrium, and moderately dilatated right atrium. We will continue his home dose Digoxin, diltiazem, statin therapy, and Eliquis. Cardiac diet, strict I&O's, daily weights. (5) Hypothyroidism Is this a current diagnosis for this admission?: Yes Plan: Patient has a history of hypothyroidism; does not appear that he is on Synthroid at home. We will check TSH with a.m. lab work. (6) Opiate dependence due to chronic pain Is this a current diagnosis for this admission?: Yes Plan: We will continue the patient's home dose oxycodone 5 mg 3 times daily as needed for pain. (7) Physical deconditioning Is this a current diagnosis for this admission?: Yes Plan: PT/OT evaluations requested. Fall precautions. Discharge planning is consulted. (8) Obesity (BMI 35.0-39.9 without comorbidity) Is this a current diagnosis for this admission?: Yes Plan: Dietary discretion is advised. Patient was placed on a cardiac diet. (9) Anemia Qualifiers: Anemia type: unspecified type Qualified Code(s): D64.9 - Anemia, unspecified Is this a current diagnosis for this admission?: Yes Plan: On admission, patient was found to have a hemoglobin of 12.5; this is decreased at 9.5 this morning. This is likely secondary to hemoconcentration in the patient with dehydration and IV fluid resuscitation in the emergency department yesterday. Baseline hemoglobin appears to be 8.8. No evidence of active bleeding at this time. Will monitor with daily CBC. We will check anemia panel with a.m. labs. (10) UTI (urinary tract infection) Qualifiers: Urinary tract infection type: acute cystitis Hematuria presence: without hematuria Qualified Code(s): N30.00 - Acute cystitis without hematuria Is this a current diagnosis for this admission?: Yes Plan: Urinalysis reveals urinary tract infection; present on admission. Urine culture shows gram-negative rods. Currently on IV vancomycin, Levaquin, and Zosyn for treatment of healthcare associated pneumonia with MRSA risk factors. This is more than sufficient to cover typical organisms (likely E. coli given patient's previous urine culture results). Will adjust antibiotics as blood and urine cultures finalized. - Time Time Spent with patient: 25-34 minutes Medications reviewed and adjusted accordingly: Yes Anticipated discharge: Home with Homehealth Within: within 72 hours
[2019-02-22] MEDS: LEVOFLOXACIN 750 MG/D5W RTU 750 MG/150 ML RTUPB IV SCH (18:02)
[2019-02-22] MEDS: GABAPENTIN 300 MG CAPSULE PO SCH (18:02)
[2019-02-23] MEDS: NORMAL SALINE 1000 ML 1,000 ML IV PRN ×2 (02:00→16:14)
[2019-02-23] MEDS: IPRATROPIUM/ALBUTEROL 0.5-2.5 MG/3 ML AMPUL NEB SCH ×4 (02:32→20:57)
[2019-02-23] MEDS: PIPERACILLIN SODIUM/TAZOBACTAM 3.375 GM in NORMAL SALINE 100 ML IV SCH ×4 (02:57→21:01)
[2019-02-23] MEDS: VANCOMYCIN HCL 1,500 MG in DEXTROSE 5%-WATER 250 ML IV SCH (03:44)
[2019-02-23] MEDS: BUPROPION HCL 100 MG TABLET PO SCH ×3 (05:19→22:08)
[2019-02-23 07:01] LABS: ABSOLUTE LYMPHOCYTES (AUTO) 1.4 10^3/uL (0.5-4.7); ABSOLUTE MONOCYTES (AUTO) 0.5 10^3/uL (0.1-1.4); ABSOLUTE NEUT (AUTO) 6.6 10^3/uL (1.7-8.2); ABSOLUTE RETICS # 0.048 10^6/uL (0.028-0.122); BASOPHILS % (AUTO) 0.3 % (0-2); EOSINOPHILS % (AUTO) 0.4 % (0-6); HEMATOCRIT 31.7 % (37.9-51.0); HEMOGLOBIN 10.6 g/dL (13.5-17.0); LYMPHOCYTES % (AUTO) 16.4 % (13-45); MEAN CORPUSCULAR HEMOGLOBIN 31.6 pg (27.0-33.4); MEAN CORPUSCULAR HGB CONC 33.5 g/dL (32.0-36.0); MEAN CORPUSCULAR VOLUME 94 fl (80-97); MONOCYTES % (AUTO) 6.3 % (3-13); PLATELET COUNT 197 10^3/uL (150-450); RED BLOOD COUNT 3.36 10^6/uL (4.35-5.55); RED CELL DISTRIBUTION WIDTH 16.4 % (11.5-14.0); RETICULOCYTE COUNT (AUTO) 1.42 % (0.66-2.85); SEGMENTED NEUTROPHILS % (AUTO) 76.6 % (42-78); TOTAL CELLS COUNTED % (AUTO) 100 %; WHITE BLOOD COUNT 8.6 10^3/uL (4.0-10.5)
[2019-02-23 07:14] LABS: ANION GAP 9 (5-19); BLOOD UREA NITROGEN 17 mg/dL (7-20); CARBON DIOXIDE 30 mmol/L (22-30); CHLORIDE 95 mmol/L (98-107); IRON(TIBC) 56.3 ug/dL (49-181); POTASSIUM 4.1 mmol/L (3.6-5.0); SODIUM 133.9 mmol/L (137-145)
[2019-02-23] MEDS: PANTOPRAZOLE SODIUM 40 MG TABLET.DR PO SCH (08:22)
[2019-02-23 08:26] LABS: GLUCOSE 57 mg/dL (75-110)
[2019-02-23] MEDS: MIDODRINE HCL 5 MG TABLET PO SCH ×3 (10:14→18:36)
[2019-02-23] MEDS: FLUTICASONE/VILANTEROL 200-25 MCG/DOSE IH SCH (10:15)
[2019-02-23] MEDS: APIXABAN 5 MG TABLET PO SCH ×2 (10:15→18:36)
[2019-02-23] MEDS: GUAIFENESIN 600 MG TABLET.SA PO SCH ×2 (10:15→22:08)
[2019-02-23] MEDS: DILTIAZEM HCL 120 MG CAP.SR.24H PO SCH (10:15)
[2019-02-23] MEDS: DIGOXIN 0.125 MG TABLET PO SCH (10:16)
[2019-02-23 16:41] LABS: VANCOMYCIN,TROUGH 26.9 ug/mL (5.0-20.0)
--- NOTE | 2019-02-23 18:33 | PDOC PROGRESS REPORT ---
Subjective Progress Note for:: 02/23/19 Subjective:: AMELIA BOB is a 68 year old male with a PMH of chronic atrial fibrillation, anticoagulated on Eliquis, CHF, COPD, GERD, opiate dependent chronic pain, obesity, and debility who was admitted for a multifocal healthcare associated pneumonia and UTI. Patient was seen on afternoon rounds. He is found resting in bed comfortably on supplemental oxygen via nasal cannula; he is not home O2 dependent. He is noted to be alert and oriented x4. He reports that he is feeling well today. He does endorse slight productive cough, though improved from yesterday and no longer having dyspnea. He denies fever, chills, headache, dizziness, chest pain, palpitations, orthopne a, abdominal pain, nausea vomiting and diarrhea. He has no new questions or concerns. No concerns per nursing. Reason For Visit: PNEUMONIA Physical Exam Vital Signs: Temp Pulse Resp BP Pulse Ox 97.6 F 92 20 110/63 90 L 02/23/19 15:03 02/23/19 15:03 02/23/19 15:03 02/23/19 15:03 02/23/19 15:03 Pulse Oximeter Continuous Start: 02/21/19 16:17 Freq: RTQ4 Status: Active Protocol: Document 02/23/19 14:10 HCR (Rec: 02/23/19 14:16 HCR [id number]) Pulse Oximetry Assessment Oxygen Saturation (92-100) 95 Oxygen Flow Rate (L/min) 4 Oxygen Delivery Method Nasal Cannula Equipment Usage Equipment in Use Continuous SpO2 Machine # 11 Intake & Output 02/22/19 02/23/19 02/24/19 06:59 06:59 06:59 Intake Total 890 2775 1100 Output Total 50 Balance 840 2775 1100 Weight 101.1 kg 104.7 kg General appearance: PRESENT: no acute distress, well-developed, well-nourished Head exam: PRESENT: atraumatic, normocephalic Eye exam: PRESENT: conjunctiva pink, EOMI, PERRLA. ABSENT: scleral icterus Ear exam: PRESENT: normal external ear exam Mouth exam: PRESENT: moist, tongue midline Neck exam: ABSENT: carotid bruit, JVD, lymphadenopathy, thyromegaly Respiratory exam: PRESENT: clear to auscultation almaz, decreased breath sounds - Throughout; LT>Rt, symmetrical, unlabored, other - Supplemental oxygen via nasal cannula. ABSENT: rales, rhonchi, wheezes Cardiovascular exam: PRESENT: irregular rhythm, +S2. ABSENT: diastolic murmur, rubs, systolic murmur Pulses: PRESENT: normal dorsalis pedis pul Vascular exam: PRESENT: normal capillary refill GI/Abdominal exam: PRESENT: normal bowel sounds, soft. ABSENT: distended, guarding, mass, organolmegaly, rebound, tenderness Rectal exam: PRESENT: deferred Extremities exam: PRESENT: full ROM. ABSENT: calf tenderness, clubbing, pedal edema Musculoskeletal exam: ABSENT: ambulatory - Nonambulatory for several months; can stand to bedside with assistance Neurological exam: PRESENT: alert, awake, oriented to person, oriented to place, oriented to time, oriented to situation, CN II-XII grossly intact. ABSENT: motor sensory deficit Psychiatric exam: PRESENT: appropriate affect, normal mood. ABSENT: homicidal ideation, suicidal ideation Skin exam: PRESENT: dry, intact, warm. ABSENT: cyanosis, rash Results Laboratory Results: 02/23/19 06:13 02/23/19 06:13 02/23/19 02/23/19 02/23/19 06:13 06:13 06:13 WBC 8.6 RBC 3.36 L Hgb 10.6 L Hct 31.7 L MCV 94 MCH 31.6 MCHC 33.5 RDW 16.4 H Plt Count 197 Seg Neutrophils % 76.6 Lymphocytes % 16.4 Monocytes % 6.3 Eosinophils % 0.4 Basophils % 0.3 Absolute Neutrophils 6.6 Absolute Lymphocytes 1.4 Absolute Monocytes 0.5 Absolute Eosinophils 0.0 Absolute Basophils 0.0 Retic Count (auto) 1.42 Absolute Retic 0.048 Sodium 133.9 L Potassium 4.1 Chloride 95 L Carbon Dioxide 30 Anion Gap 9 BUN 17 Creatinine 0.95 Est GFR ( Amer) > 60 Est GFR (Non-Af Amer) > 60 Glucose 57 L Calcium 8.0 L Iron 56.3 TIBC 130 L % Saturation 43 Ferritin 281.00 Vitamin B12 693.0 Folate 11.80 TSH 2.66 02/21/19 17:28 Catheterized Urine Urine Culture - Final Klebsiella Pneumoniae 02/21/19 02/21/19 02/21/19 12:18 12:18 18:06 Creatine Kinase < 20 L CK-MB (CK-2) 0.41 Troponin I < 0.012 < 0.012 NT-Pro-B Natriuret Pep 1800 H Impressions: Chest X-Ray 02/21/19 11:29 IMPRESSION: Interval development of marked volume loss in the left lower lobe. Increasing right basilar opacities. Chest/Abdomen CTA 02/21/19 13:11 IMPRESSION: 1. Negative examination for pulmonary embolism. 2. Small bilateral pleural effusions and associated atelectasis or consolidation. There is extensive bilateral clustered heterogeneous pulmonary opacity most in in the right lung and consolidations of the left upper lobe and right lung base. General constellation of findings is most consistent with multifocal infection. Assessment and Plan - Diagnosis (1) Multifocal pneumonia Is this a current diagnosis for this admission?: Yes Plan: Patient is admitted to [facility] on continuous cardiac telemetry. Blood cultures are negative at 48 hours. Leukocytosis has resolved and patient remains afebrile. Sputum culture pending. He was empirically placed on IV vancomycin, Levaquin, and Zosyn for treatment of healthcare associated pneumonia with MRSA risk factors. Patient is afebrile and leukocytosis has resolved; will discontinue vancomycin and Levaquin today. Supplemental oxygen and BiPAP as needed to maintain saturations >88% Schedule and as needed nebulizer treatments. Mucinex twice daily. Chest physiotherapy twice daily. Incentive spirometer and flutter valve to bedside. (2) Acute respiratory failure with hypoxia Is this a current diagnosis for this admission?: Yes Plan: Improved; now maintaining oxygen saturations on supplemental oxygen via nasal cannula. He is not home O2 dependent. Secondary to #1. Management as above. (3) Pleural effusion Is this a current diagnosis for this admission?: Yes Plan: Noted on CTA of the chest. Likely secondary to multifocal pneumonia, may also be a consequence of his CHF. Primary management as above. (4) CHF (congestive heart failure) Qualifiers: Heart failure type: unspecified Heart failure chronicity: unspecified Qualified Code(s): I50.9 - Heart failure, unspecified Is this a current diagnosis for this admission?: Yes Plan: Stable and without exacerbation at this time. Echocardiogram (November 2017) was suboptimal but did demonstrate LVEF low normal with mild concentric LVH, severely debilitated left atrium, and moderately dilatated right atrium. We will continue his home dose Digoxin, diltiazem, statin therapy, and Eliquis. Cardiac diet, strict I&O's, daily weights. (5) Hypothyroidism Is this a current diagnosis for this admission?: Yes Plan: Patient has a history of hypothyroidism; does not appear that he is on Synthroid at home. TSH is 2.66; does not require levothyroxine at this time. (6) Opiate dependence due to chronic pain Is this a current diagnosis for this admission?: Yes Plan: We will continue the patient's home dose oxycodone 5 mg 3 times daily as needed for pain. (7) Physical deconditioning Is this a current diagnosis for this admission?: Yes Plan: PT/OT evaluations requested. Fall precautions. Discharge planning is consulted. (8) Obesity (BMI 35.0-39.9 without comorbidity) Is this a current diagnosis for this admission?: Yes Plan: Dietary discretion is advised. Patient was placed on a cardiac diet. (9) Anemia Qualifiers: Anemia type: unspecified type Qualified Code(s): D64.9 - Anemia, unspecified Is this a current diagnosis for this admission?: Yes Plan: On admission, patient was found to have a hemoglobin of 12.5-> 9.5->10.6 this morning. Decrease is likely secondary to hemoconcentration in the patient with dehydration and IV fluid resuscitation. Baseline hemoglobin appears to be 8.8. Anemia panel is unremarkable. No evidence of active bleeding at this time. Will monitor with daily CBC. (10) UTI (urinary tract infection) Qualifiers: Urinary tract infection type: acute cystitis Hematuria presence: without he maturia Qualified Code(s): N30.00 - Acute cystitis without hematuria Is this a current diagnosis for this admission?: Yes Plan: Urinalysis reveals urinary tract infection; present on admission. Urine culture demonstrates pansensitive Klebsiella. IV vancomycin and Levaquin are discontinued following today's therapy. We will continue IV Zosyn with plans to transition to Augmentin at discharge for dual coverage of UTI and bronchitis/pneumonia. - Time Time Spent with patient: 25-34 minutes Medications reviewed and adjusted accordingly: Yes Anticipated discharge: Home Within: within 48 hours
[2019-02-23] MEDS: GABAPENTIN 300 MG CAPSULE PO SCH (18:36)
[2019-02-24] MEDS: IPRATROPIUM/ALBUTEROL 0.5-2.5 MG/3 ML AMPUL NEB SCH ×3 (02:03→16:53)
[2019-02-24] MEDS: PIPERACILLIN SODIUM/TAZOBACTAM 3.375 GM in NORMAL SALINE 100 ML IV SCH ×4 (02:21→21:19)
[2019-02-24 04:59] LABS: ABSOLUTE LYMPHOCYTES (AUTO) 1.2 10^3/uL (0.5-4.7); ABSOLUTE MONOCYTES (AUTO) 0.3 10^3/uL (0.1-1.4); ABSOLUTE NEUT (AUTO) 7.8 10^3/uL (1.7-8.2); BASOPHILS % (AUTO) 0.5 % (0-2); EOSINOPHILS % (AUTO) 0.1 % (0-6); HEMATOCRIT 31.6 % (37.9-51.0); HEMOGLOBIN 10.5 g/dL (13.5-17.0); LYMPHOCYTES % (AUTO) 12.8 % (13-45); MEAN CORPUSCULAR HEMOGLOBIN 31.8 pg (27.0-33.4); MEAN CORPUSCULAR HGB CONC 33.3 g/dL (32.0-36.0); MEAN CORPUSCULAR VOLUME 95 fl (80-97); MONOCYTES % (AUTO) 3.1 % (3-13); PLATELET COUNT 190 10^3/uL (150-450); RED BLOOD COUNT 3.31 10^6/uL (4.35-5.55); SEGMENTED NEUTROPHILS % (AUTO) 83.5 % (42-78); TOTAL CELLS COUNTED % (AUTO) 100 %; WHITE BLOOD COUNT 9.3 10^3/uL (4.0-10.5)
[2019-02-24] MEDS: BUPROPION HCL 100 MG TABLET PO SCH ×3 (05:20→21:19)
[2019-02-24 05:27] LABS: ANION GAP 7 (5-19); BLOOD UREA NITROGEN 16 mg/dL (7-20); CALCIUM 7.8 mg/dL (8.4-10.2); CARBON DIOXIDE 29 mmol/L (22-30); CHLORIDE 99 mmol/L (98-107); POTASSIUM 3.8 mmol/L (3.6-5.0); SODIUM 135.2 mmol/L (137-145)
[2019-02-24 05:33] LABS: GLUCOSE 65 mg/dL (75-110)
[2019-02-24] MEDS: PANTOPRAZOLE SODIUM 40 MG TABLET.DR PO SCH (07:43)
[2019-02-24] MEDS: APIXABAN 5 MG TABLET PO SCH ×2 (09:12→18:19)
[2019-02-24] MEDS: DILTIAZEM HCL 120 MG CAP.SR.24H PO SCH (09:12)
[2019-02-24] MEDS: GUAIFENESIN 600 MG TABLET.SA PO SCH ×2 (09:12→21:19)
[2019-02-24] MEDS: MIDODRINE HCL 5 MG TABLET PO SCH ×3 (09:12→18:19)
[2019-02-24] MEDS: PREDNISONE 20 MG TABLET PO SCH (09:13)
[2019-02-24] MEDS: FLUTICASONE/VILANTEROL 200-25 MCG/DOSE IH SCH (09:13)
[2019-02-24] MEDS: DIGOXIN 0.125 MG TABLET PO SCH (09:13)
[2019-02-24] MEDS: LEVALBUTEROL HCL NEB 1.25 MG/3 ML AMPUL NEB PRN ×2 (09:45→20:03)
--- NOTE | 2019-02-24 11:39 | RADIOLOGY REPORT (SQ) ---
EXAM DESCRIPTION: CHEST SINGLE VIEW COMPLETED DATE/TIME: 02/24/2019 11:10 am REASON FOR STUDY: dyspnea, hypoxia COMPARISON: 02/21/2019 NUMBER OF VIEWS: One view. TECHNIQUE: Single frontal radiographic image of the chest acquired. LIMITATIONS: None. FINDINGS: LUNGS AND PLEURA: Persistent airspace disease in the right lung with more confluent consol idation in the right lower lobe. Known consolidation superior segment left lower lobe not significan tly changed. No large effusions. MEDIASTINUM AND HEART: Stable heart size and mediastinal structures. BONY STRUCTURES: No acute findings. HARDWARE: None. OTHER: No other significant finding. IMPRESSION: Bilateral pneumonia. No significant change. TECHNICAL DOCUMENTATION: JOB ID: [id number] Reading location - IP/workstation name: [email or web address]
[2019-02-24] MEDS: ACETYLCYSTEINE 10% NEB 400 MG/4 ML VIAL NEB SCH ×2 (14:36→20:03)
[2019-02-24 15:20] LABS: ARTERIAL BLOOD BASE EXCESS 4.1 mmol/L; ARTERIAL BLOOD H2CO3 1.23 mmol/L (1.05-1.35); ARTERIAL BLOOD HCO3 28.2 mmol/L (20-24); ARTERIAL BLOOD O2 SATURATION 93.5 % (94-98); ARTERIAL BLOOD PCO2 40.7 mmHg (35-45); ARTERIAL BLOOD PH 7.46 (7.35-7.45); ARTERIAL BLOOD PO2 64.2 mmHg (80-100); ARTERIAL BLOOD TOTAL CO2 29.5 mmol/L (23-27)
[2019-02-24 15:21] LABS: ARTERIAL BLOOD FIO2 3L
--- NOTE | 2019-02-24 17:17 | PDOC PROGRESS REPORT ---
Subjective Progress Note for:: 02/24/19 Subjective:: AMELIA BOB is a 68 year old male with a PMH of chronic atrial fibrillation, anticoagulated on Eliquis, CHF, COPD, GERD, opiate dependent chronic pain, obesity, and debility who was admitted for a multifocal healthcare associated pneumonia and UTI. Patient was seen on morning rounds. He is found resting in bed comfortably on supplemental oxygen via nasal cannula at 5 lpm; he is not home O2 dependent. He was sleeping soundly and woke briefly when I said his name, but quickly fell back to sleep. He denies fever, chills, headache, dizziness, chest pain, palpitations, orthopnea, abdominal pain, nausea vomiting and diarrhea. He has no new questions or concerns. No concerns per nursing. Reason For Visit: PNEUMONIA Physical Exam Vital Signs: Temp Pulse Resp BP Pulse Ox 97.3 F 78 16 91/48 L 94 02/24/19 11:59 02/24/19 11:59 02/24/19 11:59 02/24/19 11:59 02/24/19 12:00 Pulse Oximeter Continuous Start: 02/21/19 16:1 7 Freq: RTQ4 Status: Active Protocol: Document 02/24/19 12:00 [facility] (Rec: 02/24/19 12:42 [facility] [id number]) Pulse Oximetry Assessment Oxygen Saturation (92-100) 94 Oxygen Flow Rate (L/min) 5 Oxygen Delivery Method Nasal Cannula Equipment Usage Equipment in Use Continuous SpO2 Machine # 11 Intake & Output 02/23/19 02/24/19 02/25/19 06:59 06:59 06:59 Intake Total 2775 2100 1218 Balance 2775 2100 1218 Weight 104.7 kg 107.6 kg General appearance: PRESENT: no acute distress, obese, well-developed, well- nourished Head exam: PRESENT: atraumatic, normocephalic Eye exam: PRESENT: conjunctiva pink, EOMI, PERRLA. ABSENT: scleral icterus Ear exam: PRESENT: normal external ear exam Mouth exam: PRESENT: moist, tongue midline Neck exam: ABSENT: carotid bruit, JVD, lymphadenopathy, thyromegaly Respiratory exam: PRESENT: rhonchi, symmetrical, unlabored, other - Supplemental oxygen via nasal cannula. ABSENT: rales, wheezes Cardiovascular exam: PRESENT: irregular rhythm, +S1, +S2. ABSENT: diastolic m urmur, rubs, systolic murmur Pulses: PRESENT: normal dorsalis pedis pul Vascular exam: PRESENT: normal capillary refill GI/Abdominal exam: PRESENT: normal bowel sounds, soft. ABSENT: distended, guarding, mass, organolmegaly, rebound, tenderness Rectal exam: PRESENT: deferred Extremities exam: PRESENT: full ROM. ABSENT: calf tenderness, clubbing, pedal edema Musculoskeletal exam: ABSENT: ambulatory - Nonambulatory for several months; can stand to bedside with assistance Neurological exam: PRESENT: alert, awake, oriented to person, oriented to place, oriented to time, oriented to situation, CN II-XII grossly intact. ABSENT: motor sensory deficit Psychiatric exam: PRESENT: appropriate affect, normal mood. ABSENT: homicidal ideation, suicidal ideation Skin exam: PRESENT: dry, intact, warm. ABSENT: cyanosis, rash Results Laboratory Results: 02/24/19 04:23 02/24/19 04:23 02/24/19 02/24/19 02/24/19 04:23 04:23 15:04 WBC 9.3 RBC 3.31 L Hgb 10.5 L Hct 31.6 L MCV 95 MCH 31.8 MCHC 33.3 RDW 16.0 H Plt Count 190 Seg Neutrophils % 83.5 H Lymphocytes % 12.8 L Monocytes % 3.1 Eosinophils % 0.1 Basophils % 0.5 Absolute Neutrophils 7.8 Absolute Lymphocytes 1.2 Absolute Monocytes 0.3 Absolute Eosinophils 0.0 Absolute Basophils 0.0 Carbonic Acid 1.23 HCO3/H2CO3 Ratio 22:1 ABG pH 7.46 H ABG pCO2 40.7 ABG pO2 64.2 L ABG HCO3 28.2 H ABG O2 Saturation 93.5 L ABG Base Excess 4.1 FiO2 3L Sodium 135.2 L Potassium 3.8 Chloride 99 Carbon Dioxide 29 Anion Gap 7 BUN 16 Creatinine 0.84 Est GFR ( Amer) > 60 Est GFR (Non-Af Amer) > 60 Glucose 65 L Calcium 7.8 L 02/21/19 02/21/19 02/21/19 12:18 12:18 18:06 Creatine Kinase < 20 L CK-MB (CK-2) 0.41 Troponin I < 0.012 < 0.012 NT-Pro-B Natriuret Pep 1800 H Impressions: Chest/Abdomen CTA 02/21/19 13:11 IMPRESSION: 1. Negative examination for pulmonary embolism. 2. Small bilateral pleural effusions and associated atelectasis or consolidation. There is extensive bilateral clustered heterogeneous pulmonary opacity most in in the right lung and consolidations of the left upper lobe and right lung base. General constellation of findings is most consistent with multifocal infection. Chest X-Ray 02/24/19 00:00 IMPRESSION: Bilateral pneumonia. No significant change. Assessment and Plan - Diagnosis (1) Multifocal pneumonia Is this a current diagnosis for this admission?: Yes Plan: Patient is admitted to [facility] on continuous cardiac telemetry. Blood cultures are negative at 48 hours. Leukocytosis has resolved and patient remains afebrile. Sputum culture pending. Repeat chest x-ray shows bilateral pneumonia without significant change. ABG shows metabolic alkalosis. No hypercapnia. PO2 64.2 on supplemental oxygen via nasal cannula at 3 L/min. He was empirically placed on IV vancomycin, Levaquin, and Zosyn for treatment of healthcare associated pneumonia with MRSA risk factors. Patient is afebrile and leukocytosis has resolved; discontinued vancomycin and Levaquin yesterday. Supplemental oxygen and BiPAP as needed to maintain saturations >88% Schedule and as needed nebulizer treatments. Start Mucomyst nebulizers every 6 hours. Mucinex twice daily. Chest physiotherapy twice daily. Incentive spirometer and flutter valve to bedside. (2) Acute respiratory failure with hypoxia Is this a current diagnosis for this admission?: Yes Plan: Improved; now maintaining oxygen saturations on supplemental oxygen via nasal cannula. He is not home O2 dependent. Secondary to #1. Start prednisone 60 mg p.o. daily; low patient denied a history of COPD, home medication reconciliation reveals that he is on fluticasone/salmeterol Remaining management as above. (3) Pleural effusion Is this a current diagnosis for this admission?: Yes Plan: Noted on CTA of the chest. Likely secondary to multifocal pneumonia, may also be a consequence of his CHF. Primary management as above. (4) CHF (congestive heart failure) Qualifiers: Heart failure type: unspecified Heart failure chronicity: unspecified Qualified Code(s): I50.9 - Heart failure, unspecified Is this a current diagnosis for this admission?: Yes Plan: Stable and without exacerbation at this time. Echocardiogram (November 2017) was suboptimal but did demonstrate LVEF low normal with mild concentric LVH, severely debilitated left atrium, and moderately dilatated right atrium. We will continue his home dose Digoxin, diltiazem, statin therapy, and Eliquis. Cardiac diet, strict I&O's, daily weights. (5) Hypothyroidism Is this a current diagnosis for this admission?: Yes Plan: Patient has a history of hypothyroidism; does not appear that he is on Synthroid at home. TSH is 2.66; does not require levothyroxine at this time. (6) Opiate dependence due to chronic pain Is this a current diagnosis for this admission?: Yes Plan: We will continue the patient's home dose oxycodone 5 mg 3 times daily as needed for pain. (7) Physical deconditioning Is this a current diagnosis for this admission?: Yes Plan: PT/OT evaluations requested. Fall precautions. Discharge planning is consulted. (8) Obesity (BMI 35.0-39.9 without comorbidity) Is this a current diagnosis for this admission?: Yes Plan: Dietary discretion is advised. Patient was placed on a cardiac diet. (9) Anemia Qualifiers: Anemia type: unspecified type Qualified Code(s): D64.9 - Anemia, unspecified Is this a current diagnosis for this admission?: Yes Plan: On admission, patient was found to have a hemoglobin of 12.5-> 9.5->10.6 this morning. Decrease is likely secondary to hemoconcentration in the patient with dehydration and IV fluid resuscitation. Baseline hemoglobin appears to be 8.8. Anemia panel is unremarkable. No evidence of active bleeding at this time. Will monitor with daily CBC. (10) UTI (urinary tract infection) Qualifiers: Urinary tract infection type: acute cystitis Hematuria presence: without hematuria Qualified Code(s): N30.00 - Acute cystitis without hematuria Is this a current diagnosis for this admission?: Yes Plan: Urinalysis reveals urinary tract infection; present on admission. Urine culture demonstrates pansensitive Klebsiella. IV vancomycin and Levaquin are discontinued following today's therapy. We will continue IV Zosyn with plans to transition to Augmentin at discharge for dual coverage of UTI and bronchitis/pneumonia. Day #3. (11) Hypoglycemia Is this a current diagnosis for this admission?: Yes Plan: Patient is noted to have fasting hypoglycemia in the mid 57-65 each morning. The patient is not diabetic and not on glucose lowering medications. He does have a history of gastric banding. TSH and a.m. cortisol are normal. I have asked nursing to provide bedtime snack. - Time Time Spent with patient: 15-24 minutes Medications reviewed and adjusted accordingly: Yes Anticipated discharge: Home
[2019-02-24] MEDS: GABAPENTIN 300 MG CAPSULE PO SCH (18:19)
[2019-02-25] MEDS: IPRATROPIUM/ALBUTEROL 0.5-2.5 MG/3 ML AMPUL NEB SCH ×4 (00:01→23:49)
[2019-02-25] MEDS: LEVALBUTEROL HCL NEB 1.25 MG/3 ML AMPUL NEB PRN ×3 (01:50→20:31)
[2019-02-25] MEDS: ACETYLCYSTEINE 10% NEB 400 MG/4 ML VIAL NEB SCH ×4 (01:50→20:31)
[2019-02-25] MEDS: PIPERACILLIN SODIUM/TAZOBACTAM 3.375 GM in NORMAL SALINE 100 ML IV SCH ×4 (02:11→21:47)
[2019-02-25 05:03] LABS: HEMATOCRIT 29.3 % (37.9-51.0); HEMOGLOBIN 9.9 g/dL (13.5-17.0); MEAN CORPUSCULAR HGB CONC 33.7 g/dL (32.0-36.0); MEAN CORPUSCULAR VOLUME 95 fl (80-97); PLATELET COUNT 183 10^3/uL (150-450); RED BLOOD COUNT 3.08 10^6/uL (4.35-5.55); RED CELL DISTRIBUTION WIDTH 15.9 % (11.5-14.0); WHITE BLOOD COUNT 7.6 10^3/uL (4.0-10.5)
[2019-02-25 05:23] LABS: ANION GAP 9 (5-19); BLOOD UREA NITROGEN 16 mg/dL (7-20); CARBON DIOXIDE 26 mmol/L (22-30); CHLORIDE 100 mmol/L (98-107); GLUCOSE 106 mg/dL (75-110); POTASSIUM 3.5 mmol/L (3.6-5.0); SODIUM 134.7 mmol/L (137-145)
[2019-02-25] MEDS: BUPROPION HCL 100 MG TABLET PO SCH ×3 (05:46→21:49)
[2019-02-25] MEDS: PANTOPRAZOLE SODIUM 40 MG TABLET.DR PO SCH (08:44)
[2019-02-25] MEDS: GUAIFENESIN 600 MG TABLET.SA PO SCH ×2 (09:49→21:49)
[2019-02-25] MEDS: PREDNISONE 20 MG TABLET PO SCH (09:49)
[2019-02-25] MEDS: APIXABAN 5 MG TABLET PO SCH ×2 (09:49→17:52)
[2019-02-25] MEDS: DILTIAZEM HCL 120 MG CAP.SR.24H PO SCH (09:49)
[2019-02-25] MEDS: MIDODRINE HCL 5 MG TABLET PO SCH ×3 (09:50→17:52)
[2019-02-25] MEDS: DIGOXIN 0.125 MG TABLET PO SCH (09:50)
[2019-02-25] MEDS: FLUTICASONE/VILANTEROL 200-25 MCG/DOSE IH SCH (09:58)
[2019-02-25] MEDS: GABAPENTIN 300 MG CAPSULE PO SCH (17:52)
--- NOTE | 2019-02-25 17:58 | PDOC PROGRESS REPORT ---
Subjective Progress Note for:: 02/25/19 Subjective:: AMELIA BOB is a 68 year old male with a PMH of chronic atrial fibrillation, anticoagulated on Eliquis, CHF, COPD, GERD, opiate dependent chronic pain, obesity, and debility who was admitted for a multifocal healthcare associated pneumonia and UTI. Patient was seen on morning rounds. He is found resting in bed comfortably on supplemental oxygen via nasal cannula at 4 lpm; he is not home O2 dependent. He reports that he is feeling well, though fatigued with generalized weakness. Finally producing some sputum. He denies fever, chills, headache, dizziness, chest pain, palpitations, orthopnea, abdominal pain, nausea vomiting and diarrhea. He has no new questions or concerns. No concerns per nursing. Reason For Visit: PNEUMONIA Physical Exam Vital Signs: Temp Pulse Resp BP Pulse Ox 97.8 F 84 18 95/51 L 90 L 02/25/19 15:11 02/25/19 16:00 02/25/19 16:00 02/25/19 15:11 02/25/19 16:00 Pulse Oximeter Continuous Start: 02/21/19 16:17 Freq: RTQ4 Status: Active Protocol: Document 02/25/19 16:00 [facility] (Rec: 02/25/19 16:04 [facility] [id number]) Pulse Oximetry Assessment Oxygen Saturation (92-100) 90 Oxygen Flow Rate (L/min) 4 Oxygen Delivery Method Nasal Cannula Equipment Usage Equipment in Use Continuous SpO2 Machine # 11 Pulse Oximeter Nocturnal Start: 02/24/19 10:18 Freq: RTQ4 Status: Complete Protocol: Document 02/25/19 08:00 [facility] (Rec: 02/25/19 09:13 [facility] [id number]) Nocturnal Pulse Oximetry Equipment Usage Equipment in Use Oxygen Delivery Method (includes room Nasal Cannula air) O2 Sat by Pulse Oximetry (92-100) 89 Continuous Pulse Oximeter Set Up No: Had from previous study. Continuous SpO2 Machine # 11 Additional RT Notes Other Study began at 21:40 on RA with 02 saturation 83% 21:00 - on NC 1.5lpm 02 saturation 87% 21:58 - on NC 2lpm 02 saturation 90% 00:05 - on NC 3lpm 02 saturation 89% 01:50 - on NC 4lpm 02 saturation 88% 03:45 - on NC 4lpm 02 saturation 89% Study completed by RT Contreras . Intake & Output 02/24/19 02/25/19 02/26/19 06:59 06:59 06:59 Intake Total 2099 2072 100 Balance 2099 2072 100 Weight 107.6 kg 109 kg General appearance: PRESENT: no acute distress, cooperative, obese, well- developed, well-nourished Head exam: PRESENT: atraumatic, normocephalic Eye exam: PRESENT: conjunctiva pink, EOMI, PERRLA. ABSENT: scleral icterus Ear exam: PRESENT: normal external ear exam Mouth exam: PRESENT: moist, tongue midline Teeth exam: PRESENT: edentulous Neck exam: ABSENT: carotid bruit, JVD, lymphadenopathy, thyromegaly Respiratory exam: PRESENT: rhonchi, symmetrical, unlabored, other - Supplemental oxygen via nasal cannula. ABSENT: rales, wheezes Cardiovascular exam: PRESENT: irregular rhythm, +S1, +S2. ABSENT: diastolic murmur, rubs, systolic murmur Pulses: PRESENT: normal dorsalis pedis pul Vascular exam: PRESENT: normal capillary refill GI/Abdominal exam: PRESENT: normal bowel sounds, soft. ABSENT: distended, guarding, mass, organolmegaly, rebound, tenderness Rectal exam: PRESENT: deferred Extremities exam: PRESENT: full ROM. ABSENT: calf tenderness, clubbing, pedal edema Musculoskeletal exam: PRESENT: ambulatory - Nonambulatory for several months; can stand to bedside with assistance Neurological exam: PRESENT: alert, awake, oriented to person, oriented to place, oriented to time, oriented to situation, CN II-XII grossly intact. ABSENT: motor sensory deficit Psychiatric exam: PRESENT: appropriate affect, normal mood. ABSENT: homicidal i deation, suicidal ideation Skin exam: PRESENT: dry, intact, warm. ABSENT: cyanosis, rash Results Laboratory Results: 02/25/19 04:35 02/25/19 04:35 02/25/19 02/25/19 04:35 04:35 WBC 7.6 RBC 3.08 L Hgb 9.9 L Hct 29.3 L MCV 95 MCH 32.0 MCHC 33.7 RDW 15.9 H Plt Count 183 Sodium 134.7 L Potassium 3.5 L Chloride 100 Carbon Dioxide 26 Anion Gap 9 BUN 16 Creatinine 0.72 Est GFR ( Amer) > 60 Est GFR (Non-Af Amer) > 60 Glucose 106 Calcium 8.0 L 02/24/19 15:06 Sputum Gram Stain - Final 02/24/19 15:06 Sputum Sputum Culture - Final C.albicans/C.dubliniensis Normal Manju Absent 02/21/19 02/21/19 02/21/19 12:18 12:18 18:06 Creatine Kinase < 20 L CK-MB (CK-2) 0.41 Troponin I < 0.012 < 0.012 NT-Pro-B Natriuret Pep 1800 H Impressions: Chest/Abdomen CTA 02/21/19 13:11 IMPRESSION: 1. Negative examination for pulmonary embolism. 2. Small bilateral pleural effusions and associated atelectasis or consolidation. There is extensive bilateral clustered heterogeneous pulmonary opacity most in in the right lung and consolidations of the left upper lobe and right lung base. General constellation of findings is most consistent with multifocal infection. Chest X-Ray 02/24/19 00:00 IMPRESSION: Bilateral pneumonia. No significant change. Assessment and Plan - Diagnosis (1) Multifocal pneumonia Is this a current diagnosis for this admission?: Yes Plan: Patient is admitted to [facility] on continuous cardiac telemetry. Blood cultures are negative at 4 today's. Leukocytosis has resolved and patient remains afebrile. Sputum culture shows Tiffany albicans and normal respiratory manju Repeat chest x-ray shows bilateral pneumonia without significant change. ABG shows metabolic alkalosis. No hypercapnia. PO2 64.2 on supplemental oxygen via nasal cannula at 3 L/min. He was empirically placed on IV vancomycin, Levaquin, and Zosyn for treatment of healthcare associated pneumonia with MRSA risk factors. Patient is afebrile and leukocytosis has resolved; have discontinued vancomycin and Levaquin. We will continue Zosyn; day #4. Start Diflucan p.o. daily. Supplemental oxygen and BiPAP as needed to maintain saturations >88% Schedule and as needed nebulizer treatments. Continue Mucomyst nebulizers every 6 hours. Mucinex twice daily. Chest physiotherapy twice daily. Incentive spirometer and flutter valve to bedside. (2) Acute respiratory failure with hypoxia Is this a current diagnosis for this admission?: Yes Plan: Improved; now maintaining oxygen saturations on supplemental oxygen via nasal cannula. He is not home O2 dependent. Secondary to #1. Start prednisone 60 mg p.o. daily; although patient denied a history of COPD, home medication reconciliation reveals that he is on fluticasone/salmeterol Remaining management as above. (3) Pleural effusion Is this a current diagnosis for this admission?: Yes Plan: Noted on CTA of the chest. Likely secondary to multifocal pneumonia, may also be a consequence of his CHF. Primary management as above. (4) CHF (congestive heart failure) Qualifiers: Heart failure type: unspecified Heart failure chronicity: unspecified Qualified Code(s): I50.9 - Heart failure, unspecified Is this a current diagnosis for this admission?: Yes Plan: Stable and without exacerbation at this time. Echocardiogram (November 2017) was suboptimal but did demonstrate LVEF low normal with mild concentric LVH, severely debilitated left atrium, and moderately dilatated right atrium. We will continue his home dose Digoxin, diltiazem, statin therapy, and Eliquis. Cardiac diet, strict I&O's, daily weights. (5) Hypothyroidism Is this a current diagnosis for this admission?: Yes Plan: Patient has a history of hypothyroidism; does not appear that he is on Synthroid at home. TSH is 2.66; does not require levothyroxine at this time. (6) Opiate dependence due to chronic pain Is this a current diagnosis for this admission?: Yes Plan: We will continue the patient's home dose oxycodone 5 mg 3 times daily as needed for pain. (7) Physical deconditioning Is this a current diagnosis for this admission?: Yes Plan: PT/OT evaluations requested. Fall precautions. Discharge planning is consulted. (8) Obesity (BMI 35.0-39.9 without comorbidity) Is this a current diagnosis for this admission?: Yes Plan: Dietary discretion is advised. Patient was placed on a cardiac diet. (9) Anemia Qualifiers: Anemia type: unspecified type Qualified Code(s): D64.9 - Anemia, unspecified Is this a current diagnosis for this admission?: Yes Plan: On admission, patient was found to have a hemoglobin of 12.5-> 9.5->10.6-> 9.9 this morning. Decrease is likely secondary to hemoconcentration in the patient with dehydration and IV fluid resuscitation. Baseline hemoglobin appears to be 8.8. Anemia panel is unremarkable. No evidence of active bleeding at this time. Will monitor with daily CBC. (10) UTI (urinary tract infection) Qualifiers: Urinary tract infection type: acute cystitis Hematuria presence: without hematuria Qualified Code(s): N30.00 - Acute cystitis without hematuria Is this a current diagnosis for this admission?: Yes Plan: Urinalysis reveals urinary tract infection; present on admission. Urine culture demonstrates pansensitive Klebsiella. IV vancomycin and Levaquin are discontinued following today's therapy. We will continue IV Zosyn with plans to transition to Augmentin at discharge for dual coverage of UTI and bronchitis/pneumonia. Day #4. (11) Hypoglycemia Is this a current diagnosis for this admission?: Yes Plan: Patient is noted to have fasting hypoglycemia in the mid 57-65 each morning; no hypoglycemia early this morning. The patient is not diabetic and not on glucose lowering medications. He does have a history of gastric banding. TSH and a.m. cortisol are normal. I have asked nursing to provide bedtime snack. - Time Time Spent with patient: 25-34 minutes Medications reviewed and adjusted accordingly: Yes Anticipated discharge: Home Within: within 72 hours
[2019-02-26] MEDS: ACETYLCYSTEINE 10% NEB 400 MG/4 ML VIAL NEB SCH ×4 (02:18→20:33)
[2019-02-26] MEDS: LEVALBUTEROL HCL NEB 1.25 MG/3 ML AMPUL NEB PRN ×3 (02:18→20:33)
[2019-02-26] MEDS: PIPERACILLIN SODIUM/TAZOBACTAM 3.375 GM in NORMAL SALINE 100 ML IV SCH ×4 (03:00→21:59)
[2019-02-26 06:09] LABS: HEMATOCRIT 27.6 % (37.9-51.0); HEMOGLOBIN 9.3 g/dL (13.5-17.0); MEAN CORPUSCULAR HEMOGLOBIN 31.6 pg (27.0-33.4); MEAN CORPUSCULAR HGB CONC 33.5 g/dL (32.0-36.0); MEAN CORPUSCULAR VOLUME 94 fl (80-97); PLATELET COUNT 188 10^3/uL (150-450); RED BLOOD COUNT 2.92 10^6/uL (4.35-5.55); RED CELL DISTRIBUTION WIDTH 16.1 % (11.5-14.0); WHITE BLOOD COUNT 7.4 10^3/uL (4.0-10.5)
[2019-02-26] MEDS: BUPROPION HCL 100 MG TABLET PO SCH ×3 (06:28→23:00)
[2019-02-26 06:29] LABS: ANION GAP 7 (5-19); BLOOD UREA NITROGEN 15 mg/dL (7-20); CALCIUM 8.2 mg/dL (8.4-10.2); CARBON DIOXIDE 28 mmol/L (22-30); CHLORIDE 101 mmol/L (98-107); GLUCOSE 90 mg/dL (75-110); POTASSIUM 3.4 mmol/L (3.6-5.0); SODIUM 136.2 mmol/L (137-145)
[2019-02-26] MEDS ORDERED: POTASSIUM CHLORIDE 10 MEQ CAPSULE.ER PO ONE (07:46)
[2019-02-26] MEDS: PANTOPRAZOLE SODIUM 40 MG TABLET.DR PO SCH (08:15)
[2019-02-26] MEDS: IPRATROPIUM/ALBUTEROL 0.5-2.5 MG/3 ML AMPUL NEB SCH ×2 (08:24→16:19)
[2019-02-26] MEDS: DILTIAZEM HCL 120 MG CAP.SR.24H PO SCH (09:04)
[2019-02-26] MEDS: APIXABAN 5 MG TABLET PO SCH ×2 (09:05→17:36)
[2019-02-26] MEDS: GUAIFENESIN 600 MG TABLET.SA PO SCH ×2 (09:05→23:00)
[2019-02-26] MEDS: DIGOXIN 0.125 MG TABLET PO SCH (09:05)
[2019-02-26] MEDS: MIDODRINE HCL 5 MG TABLET PO SCH ×3 (09:05→17:36)
[2019-02-26] MEDS: PREDNISONE 20 MG TABLET PO SCH (09:05)
[2019-02-26] MEDS: FLUTICASONE/VILANTEROL 200-25 MCG/DOSE IH SCH (09:08)
[2019-02-26] MEDS: FLUCONAZOLE 100 MG TABLET PO SCH (09:09)
--- NOTE | 2019-02-26 14:23 | PDOC PROGRESS REPORT ---
Subjective Progress Note for:: 02/26/19 Subjective:: AMELIA BOB is a 68 year old male with a PMH of chronic atrial fibrillation, anticoagulated on Eliquis, CHF, COPD, GERD, opiate dependent chronic pain, obesity, and debility who was admitted for a multifocal healthcare associated pneumonia and UTI. Patient was seen on morning rounds. He is found resting in bed comfortably on supplemental oxygen via nasal cannula at 4 lpm; he is not home O2 dependent. He reports that he is feeling well, though fatigued with generalized weakness. Continues to have slightly productive cough. Today he asks if something can be d one about the ringing in his ears; states he has had tinnitus for the last several weeks. He denies fever, chills, headache, dizziness, chest pain, palpitations, orthopnea, abdominal pain, nausea vomiting and diarrhea. He has no new questions or concerns. No concerns per nursing. Reason For Visit: PNEUMONIA Physical Exam Vital Signs: Temp Pulse Resp BP Pulse Ox 97.8 F 72 20 109/66 91 L 02/26/19 11:57 02/26/19 11:57 02/26/19 11:57 02/26/19 11:57 02/26/19 11:57 Pulse Oximeter Continuous Start: 02/21/19 16:17 Freq: RTQ4 Status: Active Protocol: Document 02/26/19 11:12 [facility] (Rec: 02/26/19 11:12 [facility] [id number]) Pulse Oximetry Assessment Oxygen Saturation (92-100) 90 Oxygen Flow Rate (L/min) 4 Oxygen Delivery Method Nasal Cannula Equipment Usage Equipment in Use Continuous SpO2 Machine # 11 Pulse Oximeter Nocturnal Start: 02/24/19 10:18 Freq: RTQ4 Status: Complete Protocol: Document 02/25/19 08:00 [facility] (Rec: 02/25/19 09:13 [facility] [id number]) Nocturnal Pulse Oximetry Equipment Usage Equipment in Use Oxygen Delivery Method (includes room Nasal Cannula air) O2 Sat by Pulse Oximetry (92-100) 89 Continuous Pulse Oximeter Set Up No: Had from previous study. Continuous SpO2 Machine # 11 Additional RT Notes Other Study began at 21:40 on RA with 02 saturation 83% 21:00 - on NC 1.5lpm 02 saturation 87% 21:58 - on NC 2lpm 02 saturation 90% 00:05 - on NC 3lpm 02 saturation 89% 01:50 - on NC 4lpm 02 saturation 88% 03:45 - on NC 4lpm 02 saturation 89% Study completed by RT Contreras . Intake & Output 02/25/19 02/26/19 02/27/19 06:59 06:59 06:59 Intake Total 2072 400 100 Balance 2072 400 100 Weight 109 kg 107 kg General appearance: PRESENT: no acute distress, cooperative, obese, well- developed, well-nourished Head exam: PRESENT: atraumatic, normocephalic Eye exam: PRESENT: conjunctiva pink, EOMI, PERRLA. ABSENT: scleral icterus Ear exam: PRESENT: normal external ear exam Mouth exam: PRESENT: moist, tongue midline Neck exam: ABSENT: carotid bruit, JVD, lymphadenopathy, thyromegaly Respiratory exam: PRESENT: decreased breath sounds - Bibasilar, prolonged expiratory phas, rhonchi, symmetrical, unlabored, other - Supplemental oxygen via nasal cannula. ABSENT: rales, wheezes Cardiovascular exam: PRESENT: irregular rhythm, +S1, +S2. ABSENT: diastolic murmur, rubs, systolic murmur Pulses: PRESENT: normal dorsalis pedis pul Vascular exam: PRESENT: normal capillary refill GI/Abdominal exam: PRESENT: normal bowel sounds, soft. ABSENT: distended, guarding, mass, organolmegaly, rebound, tenderness Rectal exam: PRESENT: deferred Extremities exam: PRESENT: full ROM. ABSENT: calf tenderness, clubbing, pedal edema Musculoskeletal exam: PRESENT: ambulatory - Nonambulatory for several months; can stand to bedside with assistance Neurological exam: PRESENT: alert, awake, oriented to person, oriented to place, oriented to time, oriented to situation, CN II-XII grossly intact. ABSENT: motor sensory deficit Psychiatric exam: PRESENT: appropriate affect, normal mood. ABSENT: homicidal ideation, suicidal ideation Skin exam: PRESENT: dry, intact, warm. ABSENT: cyanosis, rash Results Laboratory Results: 02/26/19 05:10 02/26/19 05:10 02/26/19 02/26/19 05:10 05:10 WBC 7.4 RBC 2.92 L Hgb 9.3 L Hct 27.6 L MCV 94 MCH 31.6 MCHC 33.5 RDW 16.1 H Plt Count 188 Sodium 136.2 L Potassium 3.4 L Chloride 101 Carbon Dioxide 28 Anion Gap 7 BUN 15 Creatinine 0.65 Est GFR ( Amer) > 60 Est GFR (Non-Af Amer) > 60 Glucose 90 Calcium 8.2 L 02/21/19 14:00 Blood Blood Culture - Final NO GROWTH IN 5 DAYS 02/21/19 12:18 Blood Blood Culture - Final NO GROWTH IN 5 DAYS 02/24/19 15:06 Sputum Gram Stain - Final 02/24/19 15:06 Sputum Sputum Culture - Final C.albicans/C.dubliniensis Normal Manju Absent 02/21/19 02/21/19 02/21/19 12:18 12:18 18:06 Creatine Kinase < 20 L CK-MB (CK-2) 0.41 Troponin I < 0.012 < 0.012 NT-Pro-B Natriuret Pep 1800 H Impressions: Chest/Abdomen CTA 02/21/19 13:11 IMPRESSION: 1. Negative examination for pulmonary embolism. 2. Small bilateral pleural effusions and associated atelectasis or consolidation. There is extensive bilateral clustered heterogeneous pulmonary opacity most in in the right lung and consolidations of the left upper lobe and right lung base. General constellation of findings is most consistent with multifocal infection. Chest X-Ray 02/24/19 00:00 IMPRESSION: Bilateral pneumonia. No significant change. Assessment and Plan - Diagnosis (1) Multifocal pneumonia Is this a current diagnosis for this admission?: Yes Plan: Somewhat improved; leukocytosis has resolved, patient is afebrile, weaning oxygen (now on 3.5 L v 5 at time of admission) Patient is admitted to [facility] on continuous cardiac telemetry. Blood cultures are negative at 5 today's. Sputum culture shows Tiffany albicans and normal respiratory manju Repeat chest x-ray shows bilateral pneumonia without significant change. ABG shows metabolic alkalosis. No hypercapnia. PO2 64.2 on supplemental oxygen via nasal cannula at 3 L/min. He was empirically placed on IV vancomycin, Levaquin, and Zosyn for treatment of healthcare associated pneumonia with MRSA risk factors. Patient is afebrile and leukocytosis has resolved; have discontinued vancomycin and Levaquin. We will continue Zosyn; day #5. Continue Diflucan p.o. daily; Day 2/5. Supplemental oxygen and BiPAP as needed to maintain saturations >88%. Patient continues to decline BiPAP. Schedule and as needed nebulizer treatments. Continue Mucomyst nebulizers every 6 hours. Mucinex twice daily. Chest physiotherapy twice daily. Incentive spirometer and flutter valve to bedside. (2) Acute respiratory failure with hypoxia Is this a current diagnosis for this admission?: Yes Plan: Improved; now maintaining oxygen saturations on supplemental oxygen via nasal cannula. He is not home O2 dependent. Secondary to #1. Continue prednisone 60 mg p.o. daily; although patient denied a history of COPD, home medication reconciliation reveals that he is on fluticasone/salmeterol Remaining management as above. (3) Pleural effusion Is this a current diagnosis for this admission?: Yes Plan: Noted on CTA of the chest. Likely secondary to multifocal pneumonia, may also be a consequence of his CHF. Primary management as above. (4) CHF (congestive heart failure) Qualifiers: Heart failure type: unspecified Heart failure chronicity: unspecified Qualified Code(s): I50.9 - Heart failure, unspecified Is this a current diagnosis for this admission?: Yes Plan: Stable and without exacerbation at this time. Echocardiogram (November 2017) was suboptimal but did demonstrate LVEF low normal with mild concentric LVH, severely debilitated left atrium, and moderately dilatated right atrium. We will continue his home dose diltiazem, statin therapy, and Eliquis. 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 Rincon advises to decrease Digoxin from daily to 5x weekly. Cardiac diet, strict I&O's, daily weights. (5) Hypothyroidism Is this a current diagnosis for this admission?: Yes Plan: Ruled out. Patient has a history of hypothyroidism; does not appear that he is on Synthroid at home. TSH is 2.66; does not require levothyroxine at this time. (6) Opiate dependence due to chronic pain Is this a current diagnosis for this admission?: Yes Plan: We will continue the patient's home dose oxycodone 5 mg 3 times daily as needed for pain. (7) Physical deconditioning Is this a current diagnosis for this admission?: Yes Plan: PT/OT evaluations requested. Fall precautions. Discharge planning is consulted. (8) Obesity (BMI 35.0-39.9 without comorbidity) Is this a current diagnosis for this admission?: Yes Plan: Dietary discretion is advised. Patient was placed on a cardiac diet. (9) Anemia Qualifiers: Anemia type: unspecified type Qualified Code(s): D64.9 - Anemia, unspecified Is this a current diagnosis for this admission?: Yes Plan: On admission, patient was found to have a hemoglobin of 12.5-> 9.5->10.6-> 9.3 this morning. Decrease is likely secondary to hemoconcentration in the patient with dehydration and IV fluid resuscitation. Baseline hemoglobin appears to be 8.8. Anemia panel is unremarkable. No evidence of active bleeding at this time. Will monitor with daily CBC. IVF have been discontinued. Will check occult stool. (10) UTI (urinary tract infection) Qualifiers: Urinary tract infection type: acute cystitis Hematuria presence: without hematuria Qualified Code(s): N30.00 - Acute cystitis without hematuria Is this a current diagnosis for this admission?: Yes Plan: Urinalysis reveals urinary tract infection; present on admission. Urine culture demonstrates pansensitive Klebsiella. IV vancomycin and Levaquin are discontinued. We will continue IV Zosyn with plans to transition to Augmentin at discharge for dual coverage of UTI and bronchitis/pneumonia. Day #5. (11) Hypoglycemia Is this a current diagnosis for this admission?: Yes Plan: Resolved. Patient is noted to have fasting hypoglycemia in the mid 57-65 each morning; no hypoglycemia following addition of bedtime snack. The patient is not diabetic and not on glucose lowering medications. He does have a history of gastric banding. TSH and a.m. cortisol are normal. I have asked nursing to provide bedtime snack. (12) Tinnitus Qualifiers: Laterality: bilateral Qualified Code(s): H93.13 - Tinnitus, bilateral Is this a current diagnosis for this admission?: Yes Plan: Home dose digoxin 0.125 mg daily was continued at time of admission. Digoxin level 1.37. 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 Today he reports several weeks of tinnitus. Spoke with the patient's established deli/bakery associate Dr. Rincon today. Dr. Rincon recommends decreasing digoxin to 5 times weekly (Tuesday through Tuesday) with goal of digoxin level <1. - Time Time Spent with patient: 15-24 minutes Medications reviewed and adjusted accordingly: Yes Anticipated discharge: Home Within: within 72 hours - weaning oxygen; may require home O2 at time of discharge.
[2019-02-26] MEDS: GABAPENTIN 300 MG CAPSULE PO SCH (17:36)
[2019-02-27] MEDS: IPRATROPIUM/ALBUTEROL 0.5-2.5 MG/3 ML AMPUL NEB SCH ×3 (00:23→16:46)
[2019-02-27] MEDS: LEVALBUTEROL HCL NEB 1.25 MG/3 ML AMPUL NEB PRN ×2 (02:09→20:43)
[2019-02-27] MEDS: ACETYLCYSTEINE 10% NEB 400 MG/4 ML VIAL NEB SCH ×2 (02:09→07:43)
[2019-02-27] MEDS: PIPERACILLIN SODIUM/TAZOBACTAM 3.375 GM in NORMAL SALINE 100 ML IV SCH ×4 (03:55→21:37)
[2019-02-27] MEDS: BUPROPION HCL 100 MG TABLET PO SCH ×3 (05:34→21:37)
[2019-02-27] MEDS: DILTIAZEM HCL 120 MG CAP.SR.24H PO SCH (09:51)
[2019-02-27] MEDS: PREDNISONE 20 MG TABLET PO SCH (09:51)
[2019-02-27] MEDS: APIXABAN 5 MG TABLET PO SCH ×2 (09:52→18:32)
[2019-02-27] MEDS: MIDODRINE HCL 5 MG TABLET PO SCH ×3 (09:53→18:32)
[2019-02-27] MEDS: PANTOPRAZOLE SODIUM 40 MG TABLET.DR PO SCH (09:53)
[2019-02-27] MEDS: GUAIFENESIN 600 MG TABLET.SA PO SCH ×2 (09:53→21:37)
[2019-02-27] MEDS: FLUTICASONE/VILANTEROL 200-25 MCG/DOSE IH SCH (10:00)
[2019-02-27] MEDS: FLUCONAZOLE 100 MG TABLET PO SCH (10:00)
[2019-02-27] MEDS: GABAPENTIN 300 MG CAPSULE PO SCH (18:32)
[2019-02-27] MEDS: ACETYLCYSTEINE 20% SOLN 800 MG/4 ML VIAL.NEB NEB SCH (20:44)
--- NOTE | 2019-02-27 21:51 | PDOC PROGRESS REPORT ---
Subjective Progress Note for:: 02/27/19 Subjective:: AMELIA BOB is a 68 year old male with a PMH of chronic atrial fibrillation, anticoagulated on Eliquis, CHF, COPD, GERD, opiate dependent chronic pain, obesity, and debility who was admitted for a multifocal healthcare associated pneumonia and UTI. Patient was seen on morning rounds. He is found resting in bed comfortably on supplemental oxygen via nasal cannula at 2.5 lpm; he is not home O2 dependent. The patient will likely require home O2 if he is unable to wean. On exam, rhonci is heard in the RML. Patient states he coughs and coughs but is unable to "get anything up." RT recommends changing from mucomyst 10% to mucomyst 20% to help the patient expectorate. Plan to remain inpatient while the patient receives treatment for healthcare associated PNA and UTI. Reason For Visit: PNEUMONIA Physical Exam Vital Signs: Temp Pulse Resp BP Pulse Ox 97.6 F 78 16 111/59 L 98 02/27/19 14:49 02/27/19 20:44 02/27/19 20:44 02/27/19 14:49 02/27/19 20:44 Pulse Oximeter Continuous Start: 02/21/19 16:17 Freq: RTQ4 Status: Active Protocol: Document 02/27/19 20:44 [facility] (Rec: 02/27/19 21:25 [facility] [id number]) Pulse Oximetry Assessment Oxygen Saturation (92-100) 98 Oxygen Flow Rate (L/min) 3 Oxygen Delivery Method Nasal Cannula Fraction of Inspired Oxygen (FIO2) 32 Equipment Usage Equipment in Use Continuous SpO2 Machine # 11 Pulse Oximeter Nocturnal Start: 02/24/19 10:18 Freq: RTQ4 Status: Complete Protocol: Document 02/25/19 08:00 [facility] (Rec: 02/25/19 09:13 [facility] [id number]) Nocturnal Pulse Oximetry Equipment Usage Equipment in Use Oxygen Delivery Method (includes room Nasal Cannula air) O2 Sat by Pulse Oximetry (92-100) 89 Continuous Pulse Oximeter Set Up No: Had from previous study. Continuous SpO2 Machine # 11 Additional RT Notes Other Study began at 21:40 on RA with 02 saturation 83% 21:00 - on NC 1.5lpm 02 saturation 87% 21:58 - on NC 2lpm 02 saturation 90% 00:05 - on NC 3lpm 02 saturation 89% 01:50 - on NC 4lpm 02 saturation 88% 03:45 - on NC 4lpm 02 saturation 89% Study completed by RT Contreras . Intake & Output 02/26/19 02/27/19 02/28/19 06:59 06:59 06:59 Intake Total 400 1440 860 Balance 400 1440 860 Weight 107 kg 108.6 kg General appearance: PRESENT: no acute distress, morbidly obese Head exam: PRESENT: atraumatic, normocephalic Eye exam: PRESENT: conjunctiva pink, EOMI, PERRLA. ABSENT: scleral icterus Ear exam: PRESENT: normal external ear exam Mouth exam: PRESENT: moist, tongue midline Teeth exam: PRESENT: poor dentation Neck exam: ABSENT: carotid bruit, JVD, lymphadenopathy, thyromegaly Respiratory exam: PRESENT: rhonchi - RML, symmetrical, unlabored - requiring supplemental O2 via nasal cannula. ABSENT: rales, wheezes Cardiovascular exam: PRESENT: RRR. ABSENT: diastolic murmur, rubs, systolic murmur Pulses: PRESENT: normal radial pulses, +1 pedal pulses bilateral Vascular exam: PRESENT: normal capillary refill GI/Abdominal exam: PRESENT: normal bowel sounds, soft. ABSENT: distended, guarding, mass, organolmegaly, rebound, tenderness Rectal exam: PRESENT: deferred Extremities exam: PRESENT: full ROM. ABSENT: calf tenderness, clubbing, pedal edema Musculoskeletal exam: PRESENT: full ROM - upper extremities/ limitied ROM to lower extremities. ABSENT: ambulatory Neurological exam: PRESENT: alert, awake, oriented to person, oriented to place, oriented to time, oriented to situation Psychiatric exam: PRESENT: appropriate affect, normal mood. ABSENT: homicidal ideation, suicidal ideation Skin exam: PRESENT: dry, intact, warm. ABSENT: cyanosis, rash Results Laboratory Results: 02/26/19 05:10 02/26/19 05:10 02/26/19 23:55 Stool Occult Blood NEGATIVE 02/21/19 02/21/19 02/21/19 12:18 12:18 18:06 Creatine Kinase < 20 L CK-MB (CK-2) 0.41 Troponin I < 0.012 < 0.012 NT-Pro-B Natriuret Pep 1800 H Impressions: Chest/Abdomen CTA 02/21/19 13:11 IMPRESSION: 1. Negative examination for pulmonary embolism. 2. Small bilateral pleural effusions and associated atelectasis or consolidation. There is extensive bilateral clustered heterogeneous pulmonary opacity most in in the right lung and consolidations of the left upper lobe and right lung base. General constellation of findings is most consistent with multifocal infection. Chest X-Ray 02/24/19 00:00 IMPRESSION: Bilateral pneumonia. No significant change. Status: Imported from PACS Assessment and Plan - Diagnosis (1) Multifocal pneumonia Is this a current diagnosis for this admission?: Yes Plan: Improved weaning oxygen (now on 2.5 L v 5 at time of admission) Blood cultures are negative at 5 Sputum culture shows Tiffany albicans and normal respiratory brinda Repeat CXR shows B/L PNA without significant change. Recent ABG shows metabolic alkalosis. No hypercapnia. PO2 64.2 on supplemental oxygen via nasal cannula at 3 L/min. Empirically placed on IV vancomycin, Levaquin, and Zosyn for treatment of healthcare associated PNA with MRSA risk factors. Afebrile and leukocytosis has resolved d/c'd vancomycin and Levaquin. Continue Zosyn. Continue Diflucan p.o. daily Supplemental oxygen and BiPAP as needed to maintain saturations >88%. Patient continues to decline BiPAP. Schedule and PRN nebulizer treatments. Mucomyst 20% nebulizers every 6 hours. Mucinex twice daily. Chest physiotherapy twice daily. Incentive spirometer and flutter valve to bedside. (2) Acute respiratory failure with hypoxia Is this a current diagnosis for this admission?: Yes Plan: Improved; now maintaining oxygen saturations on supplemental oxygen via nasal cannula. He is not home O2 dependent. Secondary to #1. Continue prednisone 60 mg p.o. daily; although patient denied a history of COPD, home medication reconciliation reveals that he is on fluticasone/salmeterol Remaining management as above. (3) Pleural effusion Is this a current diagnosis for this admission?: Yes Plan: Noted on CTA of the chest. Likely secondary to multifocal pneumonia, may also be a consequence of his CHF. Primary management as above. (4) CHF (congestive heart failure) Qualifiers: Heart failure type: unspecified Heart failure chronicity: unspecified Qualified Code(s): I50.9 - Heart failure, unspecified Is this a current diagnosis for this admission?: Yes Plan: Stable and without exacerbation at this time. Echocardiogram (November 2017) was suboptimal but did demonstrate LVEF low normal with mild concentric LVH, severely debilitated left atrium, and moderately dilatated right atrium. Continue home dose diltiazem, statin therapy, and Eliquis. Dr. Rincon advises to decrease Digoxin from daily to 5x weekly. Cardiac diet, strict I&O's, daily weights. (5) Hypothyroidism Is this a current diagnosis for this admission?: Yes Plan: Ruled out. Patient has a history of hypothyroidism; does not appear that he is on Synthroid at home. TSH is 2.66; does not require levothyroxine at this time. (6) Opiate dependence due to chronic pain Is this a current diagnosis for this admission?: Yes Plan: We will continue the patient's home dose oxycodone 5 mg 3 times daily as needed for pain. (7) Anemia Qualifiers: Anemia type: unspecified type Qualified Code(s): D64.9 - Anemia, unspecified Is this a current diagnosis for this admission?: Yes Plan: On admission, patient was found to have a hemoglobin of 12.5-> 9.5->10.6-> 9.3 this morning. Decrease is likely secondary to hemoconcentration in the patient with de hydration and IV fluid resuscitation. Baseline hemoglobin appears to be 8.8. Anemia panel is unremarkable. No evidence of active bleeding at this time. Will monitor with daily CBC. IVF have been discontinued. (8) Obesity (BMI 35.0-39.9 without comorbidity) Is this a current diagnosis for this admission?: Yes Plan: Dietary discretion is advised. Patient was placed on a cardiac diet. (9) Physical deconditioning Is this a current diagnosis for this admission?: Yes Plan: PT/OT evaluations requested. Fall precautions. Discharge planning is consulted. (10) Hypoglycemia Is this a current diagnosis for this admission?: Yes Plan: Resolved. Patient is noted to have fasting hypoglycemia in the mid 57-65 each morning; no hypoglycemia following addition of bedtime snack. The patient is not diabetic and not on glucose lowering medications. He does have a history of gastric banding. TSH and a.m. cortisol are normal. Asked nursing to provide bedtime snack. (11) Tinnitus Qualifiers: Laterality: bilateral Qualified Code(s): H93.13 - Tinnitus, bilateral Is this a current diagnosis for this admission?: Yes Plan: Home dose digoxin 0.125 mg daily was continued at time of admission. Digoxin level 1.37. 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 Today he reports several weeks of tinnitus. Spoke with the patient's established rheologist Dr. Rincon today. Dr. Rincon recommends decreasing digoxin to 5 times weekly (Tuesday through ) with goal of digoxin level <1. (12) UTI (urinary tract infection) Qualifiers: Urinary tract infection type: acute cystitis Hematuria presence: without hematuria Qualified Code(s): N30.00 - Acute cystitis without hematuria Is this a current diagnosis for this admission?: Yes Plan: Urinalysis reveals urinary tract infection; present on admission. Urine culture demonstrates pansensitive Klebsiella. IV vancomycin and Levaquin are discontinued. We will continue IV Zosyn with plans to transition to Augmentin at discharge for dual coverage of UTI and bronchitis/pneumonia. Day #5. - Time Time Spent with patient: 15-24 minutes Medications reviewed and adjusted accordingly: Yes Anticipated discharge: Home Within: within 48 hours - Inpatient Certification Based on my medical assessment, after consideration of the patient's comorbidities, presenting symptoms, or acuity I expect that the services needed warrant INPATIENT care.: Yes I certify that my determination is in accordance with my understanding of Medicare's requirements for reasonable and necessary INPATIENT services [42 CFR 412.3e].: Yes Medical Necessity: Need for Nebulizer Therapy and Monitoring of Response, Risk of Complication if Not Cared For in Hospital
[2019-02-28] MEDS: IPRATROPIUM/ALBUTEROL 0.5-2.5 MG/3 ML AMPUL NEB SCH ×3 (00:25→16:37)
[2019-02-28] MEDS: PIPERACILLIN SODIUM/TAZOBACTAM 3.375 GM in NORMAL SALINE 100 ML IV SCH ×3 (03:34→18:31)
[2019-02-28 05:09] LABS: HEMATOCRIT 26.5 % (37.9-51.0); HEMOGLOBIN 8.9 g/dL (13.5-17.0); MEAN CORPUSCULAR HEMOGLOBIN 31.8 pg (27.0-33.4); MEAN CORPUSCULAR HGB CONC 33.7 g/dL (32.0-36.0); MEAN CORPUSCULAR VOLUME 94 fl (80-97); PLATELET COUNT 191 10^3/uL (150-450); RED BLOOD COUNT 2.81 10^6/uL (4.35-5.55); RED CELL DISTRIBUTION WIDTH 15.8 % (11.5-14.0); WHITE BLOOD COUNT 5.2 10^3/uL (4.0-10.5)
[2019-02-28 05:36] LABS: ALANINE AMINOTRANSFERASE 57 U/L (21-72); ALBUMIN 1.9 g/dL (3.5-5.0); ALKALINE PHOSPHATASE 65 U/L (38-126); ASPARTATE AMINO TRANSFERASE 59 U/L (17-59); BILIRUBIN,DIRECT 0.4 mg/dL (0.0-0.4); BILIRUBIN,TOTAL 0.6 mg/dL (0.2-1.3); BLOOD UREA NITROGEN 13 mg/dL (7-20); CALCIUM 8.2 mg/dL (8.4-10.2); CARBON DIOXIDE 28 mmol/L (22-30); CHLORIDE 104 mmol/L (98-107); GLUCOSE 76 mg/dL (75-110); PHOSPHORUS 3.3 mg/dL (2.5-4.5); POTASSIUM 3.7 mmol/L (3.6-5.0); SODIUM 136.1 mmol/L (137-145); TOTAL PROTEIN 4.2 g/dL (6.3-8.2)
[2019-02-28 05:52] LABS: ANION GAP 4 (5-19)
[2019-02-28] MEDS: BUPROPION HCL 100 MG TABLET PO SCH ×3 (05:53→21:22)
[2019-02-28] MEDS: ACETYLCYSTEINE 20% SOLN 800 MG/4 ML VIAL.NEB NEB SCH ×2 (08:56→21:00)
[2019-02-28] MEDS: FLUCONAZOLE 100 MG TABLET PO SCH (09:15)
[2019-02-28] MEDS: FLUTICASONE/VILANTEROL 200-25 MCG/DOSE IH SCH (09:15)
[2019-02-28] MEDS: MIDODRINE HCL 5 MG TABLET PO SCH ×3 (09:16→19:58)
[2019-02-28] MEDS: GUAIFENESIN 600 MG TABLET.SA PO SCH ×2 (09:16→21:22)
[2019-02-28] MEDS: PREDNISONE 20 MG TABLET PO SCH (09:17)
[2019-02-28] MEDS: DILTIAZEM HCL 120 MG CAP.SR.24H PO SCH (09:17)
[2019-02-28] MEDS: APIXABAN 5 MG TABLET PO SCH ×2 (09:17→15:00)
[2019-02-28] MEDS: PANTOPRAZOLE SODIUM 40 MG TABLET.DR PO SCH (09:18)
--- NOTE | 2019-02-28 16:46 | PDOC PROGRESS REPORT ---
Subjective Progress Note for:: 02/28/19 Subjective:: AMELIA BOB is a 68 year old male with a PMH of chronic atrial fibrillation, anticoagulated on Eliquis, CHF, COPD, GERD, opiate dependent chronic pain, obesity, and debility who was admitted for a multifocal healthcare associated pneumonia and UTI. Patient was seen on morning rounds. He is found resting in bed comfortably on supplemental oxygen via nasal cannula at 2.5 lpm; he is not home O2 dependent. The patient will likely require home O2 if he is unable to wean. Nursing staff states the patient's SPO2 drops to 86% when he is asleep and he refuses to wear BiPAP. Discussed with RT, plan to get patient nasal mask as he states that the full facemask makes him feel claustrophobic. On exam, rhonci is heard bilaterally. Patient states is still unable to "get anything up" when coughing. Continue mucomyst 20% and CPT to help the patient expectorate. Plan to remain inpatient while the patient receives treatment for healthcare associated PNA and UTI. Reason For Visit: PNEUMONIA Physical Exam Vital Signs: Temp Pulse Resp BP Pulse Ox 97.4 F 73 16 137/78 H 92 02/28/19 12:06 02/28/19 12:06 02/28/19 12:06 02/28/19 12:06 02/28/19 12:06 Pulse Oximeter Continuous Start: 02/21/19 16:17 Freq: RTQ4 Status: Active Protocol: Document 02/28/19 12:00 [facility] (Rec: 02/28/19 15:19 [facility] [id number]) Pulse Oximetry Assessment Oxygen Saturation (92-100) 93 Oxygen Flow Rate (L/min) 4 Oxygen Delivery Method Nasal Cannula Equipment Usage Equipment in Use Continuous SpO2 Machine # 11 Pulse Oximeter Nocturnal Start: 02/24/19 1 0:18 Freq: RTQ4 Status: Complete Protocol: Document 02/25/19 08:00 [facility] (Rec: 02/25/19 09:13 [facility] [id number]) Nocturnal Pulse Oximetry Equipment Usage Equipment in Use Oxygen Delivery Method (includes room Nasal Cannula air) O2 Sat by Pulse Oximetry (92-100) 89 Continuous Pulse Oximeter Set Up No: Had from previous study. Continuous SpO2 Machine # 11 Additional RT Notes Other Study began at 21:40 on RA with 02 saturation 83% 21:00 - on NC 1.5lpm 02 saturation 87% 21:58 - on NC 2lpm 02 saturation 90% 00:05 - on NC 3lpm 02 saturation 89% 01:50 - on NC 4lpm 02 saturation 88% 03:45 - on NC 4lpm 02 saturation 89% Study completed by RT Contreras . Intake & Output 02/27/19 02/28/19 03/01/19 06:59 06:59 06:59 Intake Total 1440 1240 480 Balance 1440 1240 480 Weight 108.6 kg 107.4 kg General appearance: PRESENT: no acute distress, obese Head exam: PRESENT: atraumatic, normocephalic Eye exam: PRESENT: conjunctiva pink, PERRLA Ear exam: PRESENT: normal external ear exam Mouth exam: PRESENT: moist, tongue midline Teeth exam: PRESENT: edentulous Neck exam: ABSENT: carotid bruit, JVD, lymphadenopathy, thyromegaly Respiratory exam: PRESENT: rhonchi, symmetrical, unlabored, other - Requiring supplemental oxygen via nasal cannula at all times.. ABSENT: clear to auscultation almaz, wheezes Cardiovascular exam: PRESENT: RRR. ABSENT: diastolic murmur, rubs, systolic murmur Pulses: PRESENT: normal radial pulses, normal dorsalis pedis pul Vascular exam: PRESENT: pallor GI/Abdominal exam: PRESENT: normal bowel sounds, soft. ABSENT: distended, guarding, mass, organolmegaly, rebound, tenderness Rectal exam: PRESENT: deferred Extremities exam: PRESENT: full ROM. ABSENT: calf tenderness, clubbing, pedal edema Musculoskeletal exam: PRESENT: full ROM. ABSENT: ambulatory Neurological exam: PRESENT: alert, awake, oriented to person, oriented to place, oriented to time, oriented to situation Psychiatric exam: PRESENT: appropriate affect, normal mood Skin exam: PRESENT: dry, intact, warm. ABSENT: cyanosis, rash Results Laboratory Results: 02/28/19 04:53 02/28/19 04:53 02/28/19 02/28/19 04:53 04:53 WBC 5.2 RBC 2.81 L Hgb 8.9 L Hct 26.5 L MCV 94 MCH 31.8 MCHC 33.7 RDW 15.8 H Plt Count 191 Sodium 136.1 L Potassium 3.7 Chloride 104 Carbon Dioxide 28 Anion Gap 4 L BUN 13 Creatinine 0.60 Est GFR ( Amer) > 60 Est GFR (Non-Af Amer) > 60 Glucose 76 Calcium 8.2 L Phosphorus 3.3 Magnesium 2.0 Total Bilirubin 0.6 AST 59 ALT 57 Alkaline Phosphatase 65 Total Protein 4.2 L Albumin 1.9 L 02/21/19 02/21/19 02/21/19 12:18 12:18 18:06 Creatine Kinase < 20 L CK-MB (CK-2) 0.41 Troponin I < 0.012 < 0.012 NT-Pro-B Natriuret Pep 1800 H Impressions: Chest/Abdomen CTA 02/21/19 13:11 IMPRESSION: 1. Negative examination for pulmonary embolism. 2. Small bilateral pleural effusions and associated atelectasis or consolidation. There is extensive bilateral clustered heterogeneous pulmonary opacity most in in the right lung and consolidations of the left upper lobe and right lung base. General constellation of findings is most consistent with multifocal infection. Chest X-Ray 02/24/19 00:00 IMPRESSION: Bilateral pneumonia. No significant change. Status: Imported from PACS Assessment and Plan - Diagnosis (1) Multifocal pneumonia Is this a current diagnosis for this admission?: Yes Plan: Improved weaning oxygen (now on 2.5 L v 5 at time of admission) Blood cultures are negative Sputum culture shows Tiffany albicans and normal respiratory brinda Repeat CXR shows B/L PNA without significant change. Recent ABG shows metabolic alkalosis. No hypercapnia. PO2 64.2 on supplemental oxygen via nasal cannula at 3 L/min. Was empirically placed on IV vancomycin, Levaquin, and Zosyn for treatment of healthcare associated PNA with MRSA risk factors. Afebrile and leukocytosis has resolved d/c'd vancomycin and Levaquin. Continue Zosyn. Continue Diflucan p.o. daily Supplemental oxygen and BiPAP as needed to maintain saturations >88%. Patient declining BiPAP because of claustrophobia from BiPAP mask, will attempt nasal mask Schedule and PRN nebulizer treatments. Mucomyst 20% nebulizers every 6 hours. Mucinex twice daily. Chest physiotherapy twice daily. Incentive spirometer and flutter valve to bedside. (2) Acute respiratory failure with hypoxia Is this a current diagnosis for this admission?: Yes Plan: Improved; now maintaining oxygen saturations on supplemental oxygen via nasal cannula. He is not home O2 dependent. Secondary to #1. Continue prednisone 60 mg p.o. daily; although patient denied a history of COPD, home medication reconciliation reveals that he is on fluticasone/salmeterol Remaining management as above. (3) Pleural effusion Is this a current diagnosis for this admission?: Yes Plan: Noted on CTA of the chest. Likely secondary to multifocal pneumonia, may also be a consequence of his CHF. Primary management as above. (4) CHF (congestive heart failure) Qualifiers: Heart failure type: unspecified Heart failure chronicity: unspecified Qualified Code(s): I50.9 - Heart failure, unspecified Is this a current diagnosis for this admission?: Yes Plan: Stable and without exacerbation at this time. Echocardiogram (November 2017) was suboptimal but did demonstrate LVEF low normal with mild concentric LVH, severely debilitated left atrium, and moderately dilatated right atrium. Continue home dose diltiazem, statin therapy, and Eliquis. Dr. Rincon advises to decrease Digoxin from daily to 5x weekly. Cardiac diet, strict I&O's, daily weights. (5) Hypothyroidism Is this a current diagnosis for this admission?: Yes Plan: Ruled out. Patient has a history of hypothyroidism; does not appear that he is on Synthroid at home. TSH is 2.66; does not require levothyroxine at this time. (6) Opiate dependence due to chronic pain Is this a current diagnosis for this admission?: Yes Plan: We will continue the patient's home dose oxycodone 5 mg 3 times daily as needed for pain. (7) Anemia Qualifiers: Anemia type: unspecified type Qualified Code(s): D64.9 - Anemia, unspecified Is this a current diagnosis for this admission?: Yes Plan: On admission, patient was found to have a hemoglobin of 12.5-> 9.5->10.6-> 9.3-->8.9 this morning. Decrease is likely secondary to hemoconcentration in the patient with dehydration followed by IV fluid resuscitation. Baseline hemoglobin appears to be 8.8. Anemia panel is unremarkable. No evidence of active bleeding at this time. Will monitor with daily CBC. IVF have been discontinued. (8) Obesity (BMI 35.0-39.9 without comorbidity) Is this a current diagnosis for this admission?: Yes Plan: Dietary discretion is advised. Patient was placed on a cardiac diet. (9) Physical deconditioning Is this a current diagnosis for this admission?: Yes Plan: PT/OT evaluations requested. Fall precautions. Discharge planning is consulted. (10) Hypoglycemia Is this a current diagnosis for this admission?: Yes Plan: Resolved. Patient is noted to have fasting hypoglycemia in the mid 57-65 each morning; no hypoglycemia following addition of bedtime snack. The patient is not diabetic and not on glucose lowering medications. He does have a history of gastric banding. TSH and a.m. cortisol are normal. Asked nursing to provide bedtime snack. (11) Tinnitus Qualifiers: Laterality: bilateral Qualified Code(s): H93.13 - Tinnitus, bilateral Is this a current diagnosis for this admission?: Yes Plan: Home dose digoxin 0.125 mg daily was continued at time of admission. Digoxin level 1.37. 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 Today he reports several weeks of tinnitus. Spoke with the patient's established oiling machine operator Dr. Rincon today. Dr. Rincon recommends decreasing digoxin to 5 times weekly (Tuesday through Tuesday) with goal of digoxin level <1. (12) UTI (urinary tract infection) Qualifiers: Urinary tract infection type: acute cystitis Hematuria presence: without hematuria Qualified Code(s): N30.00 - Acute cystitis without hematuria Is this a current diagnosis for this admission?: Yes Plan: Urinalysis reveals urinary tract infection; present on admission. Urine culture demonstrates pansensitive Klebsiella. IV vancomycin and Levaquin are discontinued. We will continue IV Zosyn with plans to transition to Augmentin at discharge for dual coverage of UTI and bronchitis/pneumonia. - Time Time Spent with patient: 15-24 minutes - Inpatient Certification Based on my medical assessment, after consideration of the patient's comorbidities, presenting symptoms, or acuity I expect that the services needed warrant INPATIENT care.: Yes I certify that my determination is in accordance with my understanding of Medicare's requirements for reasonable and necessary INPATIENT services [42 CFR 412.3e].: Yes Medical Necessity: Need For Continuous Telemetry Monitoring, Need for Nebulizer Therapy and Monitoring of Response, Risk of Complication if Not Cared For in Hospital
[2019-02-28] MEDS: DIGOXIN 0.125 MG TABLET PO SCH (18:29)
[2019-02-28] MEDS: GABAPENTIN 300 MG CAPSULE PO SCH (18:36)
[2019-02-28] MEDS: LEVALBUTEROL HCL NEB 1.25 MG/3 ML AMPUL NEB PRN (21:00)
[2019-03-01] MEDS: IPRATROPIUM/ALBUTEROL 0.5-2.5 MG/3 ML AMPUL NEB SCH ×4 (00:24→23:54)
[2019-03-01] MEDS: BUPROPION HCL 100 MG TABLET PO SCH ×3 (06:01→21:32)
[2019-03-01] MEDS: ACETYLCYSTEINE 20% SOLN 800 MG/4 ML VIAL.NEB NEB SCH ×2 (08:29→20:58)
[2019-03-01] MEDS: APIXABAN 5 MG TABLET PO SCH ×2 (10:34→17:25)
[2019-03-01] MEDS: PREDNISONE 20 MG TABLET PO SCH (10:34)
[2019-03-01] MEDS: GUAIFENESIN 600 MG TABLET.SA PO SCH ×2 (10:35→21:32)
[2019-03-01] MEDS: DILTIAZEM HCL 120 MG CAP.SR.24H PO SCH (10:35)
[2019-03-01] MEDS: MIDODRINE HCL 5 MG TABLET PO SCH ×3 (10:35→17:25)
[2019-03-01] MEDS: PANTOPRAZOLE SODIUM 40 MG TABLET.DR PO SCH (10:35)
[2019-03-01] MEDS: FLUTICASONE/VILANTEROL 200-25 MCG/DOSE IH SCH (10:37)
[2019-03-01] MEDS: FLUCONAZOLE 100 MG TABLET PO SCH (10:39)
[2019-03-01] MEDS: DIGOXIN 0.125 MG TABLET PO SCH (10:39)
--- NOTE | 2019-03-01 16:19 | PDOC PROGRESS REPORT ---
Subjective Progress Note for:: 03/01/19 Subjective:: AMELIA BOB is a 68 year old male with a PMH of chronic atrial fibrillation, anticoagulated on Eliquis, CHF, COPD, GERD, opiate dependent chronic pain, obesity, and debility who was admitted for a multifocal healthcare associated pneumonia and UTI. Patient was seen on morning rounds. He is found resting in bed comfortably on supplemental oxygen via nasal cannula at 2.5 lpm; he is not home O2 dependent. The patient will likely require home O2 if he is unable to wean. The patient was given a nasal BIPAP mask yesterday, states he was able to tolerate wearing it. The patient stated he was able sleep overnight without waking up at night. Discussed with case management the patient's need for a new CPAP machine. He has one at home but it is 20+ years old. Additionally, he would need the nasal BiPAP mask. On exam, rhonci is heard bilaterally. Continue mucomyst 20% and CPT to help the patient expectorate. Plan to remain inpatient while the patient receives treatment for healthcare associated PNA and UTI. Reason For Visit: PNEUMONIA Physical Exam Vital Signs: Temp Pulse Resp BP Pulse Ox 98.0 F 79 16 112/72 96 03/01/19 08:24 03/01/19 08:24 03/01/19 08:24 03/01/19 08:24 03/01/19 12:00 Pulse Oximeter Continuous Start: 02/21/19 16:17 Freq: RTQ4 Status: Active Protocol: Document 03/01/19 12:00 [facility] (Rec: 03/01/19 13:56 [facility] [email or web address]) Pulse Oximetry Assessment Oxygen Saturation (92-100) 96 Oxygen Flow Rate (L/min) 4 Oxygen Delivery Method Nasal Cannula Equipment Usage Equipment in Use Continuous SpO2 Machine # 11 Pulse Oximeter Nocturnal Start: 02/24/19 10:18 Freq: RTQ4 Status: Complete Protocol: Document 02/25/19 08:00 [facility] (Rec: 02/25/19 09:13 [facility] [email or web address]) Nocturnal Pulse Oximetry Equipment Usage Equipment in Use Oxygen Delivery Method (includes room Nasal Cannula air) O2 Sat by Pulse Oximetry (92-100) 89 Continuous Pulse Oximeter Set Up No: Had from previous study. Continuous SpO2 Machine # 11 Additional RT Notes Other Study began at 21:40 on RA with 02 saturation 83% 21:00 - on NC 1.5lpm 02 saturation 87% 21:58 - on NC 2lpm 02 saturation 90% 00:05 - on NC 3lpm 02 saturation 89% 01:50 - on NC 4lpm 02 saturation 88% 03:45 - on NC 4lpm 02 saturation 89% Study completed by RT Contreras . Intake & Output 02/28/19 03/01/19 03/02/19 06:59 06:59 06:59 Intake Total 1240 1500 240 Balance 1240 1500 240 Weight 107.4 kg 109.9 kg Results Laboratory Results: 02/28/19 04:53 02/28/19 04:53 02/21/19 02/21/19 02/21/19 12:18 12:18 18:06 Creatine Kinase < 20 L CK-MB (CK-2) 0.41 Troponin I < 0.012 < 0.012 NT-Pro-B Natriuret Pep 1800 H Impressions: Chest/Abdomen CTA 02/21/19 13:11 IMPRESSION: 1. Negative examination for pulmonary embolism. 2. Small bilateral pleural effusions and associated atelectasis or consolidation. There is extensive bilateral clustered heterogeneous pulmonary opacity most in in the right lung and consolidations of the left upper lobe and right lung base. General constellation of findings is most consistent with multifocal infection. Chest X-Ray 02/24/19 00:00 IMPRESSION: Bilateral pneumonia. No significant change. Assessment and Plan - Diagnosis (1) Multifocal pneumonia Is this a current diagnosis for this admission?: Yes Plan: Improved weaning oxygen (now on 2.5 L v 5 at time of admission) Blood cultures are negative Sputum culture shows Tiffany albicans and normal respiratory brinda but was obtained 3 days after admission Repeat CXR shows B/L PNA without significant change. Recent ABG shows metabolic alkalosis. No hypercapnia. PO2 64.2 on supplemental oxygen via nasal cannula at 3 L/min. Was empirically placed on IV vancomycin, Levaquin, and Zosyn for treatment of healthcare associated PNA with MRSA risk factors. Vancomycin and Levaquin were d/c'd due to improved clinical picture, but his rhonci remains and the patient is still on O2. Continue Zosyn and will restart vancomycin Continue Diflucan p.o. daily Supplemental oxygen and BiPAP as needed to maintain saturations >88%. Use nasal BiPAP mask QHS Schedule and PRN nebulizer treatments. Mucomyst 20% nebulizers every 6 hours. Mucinex twice daily. Chest physiotherapy twice daily. Incentive spirometer and flutter valve to bedside. (2) Acute respiratory failure with hypoxia Is this a current diagnosis for this admission?: Yes Plan: Maintaining oxygen saturations on supplemental oxygen via nasal cannula. He is not home O2 dependent. Secondary to #1. No wheezing on exam Wean PO prednisone Patient denied a history of COPD, home medication reconciliation reveals that he is on fluticasone/salmeterol Remaining management as above. (3) Pleural effusion Is this a current diagnosis for this admission?: Yes Plan: Noted on CTA of the chest. Likely secondary to multifocal pneumonia, may also be a consequence of his CHF. Primary management as above. (4) CHF (congestive heart failure) Qualifiers: Heart failure type: unspecified Heart failure chronicity: unspecified Qualified Code(s): I50.9 - Heart failure, unspecified Is this a current diagnosis for this admission?: Yes Plan: Stable and without exacerbation at this time. Echocardiogram (November 2017) was suboptimal but did demonstrate LVEF low normal with mild concentric LVH, severely debilitated left atrium, and moderately dilatated right atrium. Continue home dose diltiazem, statin therapy, and Eliquis. Per Dr. Rincon, decrease Digoxin from daily to 5x weekly. Cardiac diet, strict I&O's, daily weights. (5) Hypothyroidism Is this a current diagnosis for this admission?: Yes Plan: Ruled out. Patient has a history of hypothyroidism; does not appear that he is on Synthroid at home. TSH is 2.66; does not require levothyroxine at this time. (6) Opiate dependence due to chronic pain Is this a current diagnosis for this admission?: Yes Plan: We will continue the patient's home dose oxycodone 5 mg 3 times daily as needed for pain. (7) Anemia Qualifiers: Anemia type: unspecified type Qualified Code(s): D64.9 - Anemia, unspecified Is this a current diagnosis for this admission?: Yes Plan: On admission, patient was found to have a hemoglobin of 12.5-> 9.5->10.6-> 9.3-->8.9 this morning. Decrease is likely secondary to hemoconcentration in the patient with dehydration followed by IV fluid resuscitation. Baseline hemoglobin appears to be 8.8. Anemia panel is unremarkable. No evidence of active bleeding at this time. Will monitor with daily CBC. IVF have been discontinued. (8) Obesity (BMI 35.0-39.9 without comorbidity) Is this a current diagnosis for this admission?: Yes Plan: Dietary discretion is advised. Patient was placed on a cardiac diet. (9) Physical deconditioning Is this a current diagnosis for this admission?: Yes Plan: PT/OT evaluations requested. Fall precautions. Discharge planning is consulted. (10) Hypoglycemia Is this a current diagnosis for this admission?: Yes Plan: Resolved. Patient is noted to have fasting hypoglycemia in the mid 57-65 each morning; no hypoglycemia following addition of bedtime snack. The patient is not diabetic and not on glucose lowering medications. He does have a history of gastric banding. TSH and a.m. cortisol are normal. Asked nursing to provide bedtime snack. (11) Tinnitus Qualifiers: Laterality: bilateral Qualified Code(s): H93.13 - Tinnitus, bilateral Is this a current diagnosis for this admission?: Yes Plan: Home dose digoxin 0.125 mg daily was continued at time of admission. Digoxin level 1.37. 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 Reported several weeks of tinnitus. 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 Rincon today. Dr. Rincon recommends decreasing digoxin to 5 times weekly (Tuesday through Tuesday) with goal of digoxin level <1. (12) UTI (urinary tract infection) Qualifiers: Urinary tract infection type: acute cystitis Hematuria presence: without hematuria Qualified Code(s): N30.00 - Acute cystitis without hematuria Is this a current diagnosis for this admission?: Yes Plan: Urinalysis reveals urinary tract infection; present on admission. Urine culture demonstrates pansensitive Klebsiella. IV vancomycin and Levaquin are discontinued. We will continue IV Zosyn with plans to transition to Augmentin at discharge for dual coverage of UTI and bronchitis/pneumonia. - Time Time Spent with patient: 15-24 minutes Medications reviewed and adjusted accordingly: Yes Anticipated discharge: Home Within: within 24 hours, within 48 hours - Inpatient Certification Based on my medical assessment, after consideration of the patient's comorbidities, presenting symptoms, or acuity I expect that the services needed warrant INPATIENT care.: Yes I certify that my determination is in accordance with my understanding of Medicare's requirements for reasonable and necessary INPATIENT services [42 CFR 412.3e].: Yes Medical Necessity: Need For Continuous Telemetry Monitoring, Need for Nebulizer Therapy and Monitoring of Response, Risk of Complication if Not Cared For in Hospital - Plan Summary Plan Summary: PATIENT WILL REQUIRE NEW HOME CPAP MACHINE. ADDITIONALLY WILL NEED HOME O2 AND PLAN TO RESUME HOME HEALTH
[2019-03-01] MEDS: GABAPENTIN 300 MG CAPSULE PO SCH (17:25)
[2019-03-01] MEDS: LEVALBUTEROL HCL NEB 1.25 MG/3 ML AMPUL NEB PRN (20:58)
[2019-03-02] MEDS: BUPROPION HCL 100 MG TABLET PO SCH ×3 (06:05→21:10)
[2019-03-02 06:21] LABS: HEMATOCRIT 27.7 % (37.9-51.0); HEMOGLOBIN 9.4 g/dL (13.5-17.0); MEAN CORPUSCULAR HEMOGLOBIN 32.1 pg (27.0-33.4); MEAN CORPUSCULAR HGB CONC 34.1 g/dL (32.0-36.0); MEAN CORPUSCULAR VOLUME 94 fl (80-97); PLATELET COUNT 240 10^3/uL (150-450); RED BLOOD COUNT 2.95 10^6/uL (4.35-5.55); RED CELL DISTRIBUTION WIDTH 15.1 % (11.5-14.0); WHITE BLOOD COUNT 5.7 10^3/uL (4.0-10.5)
[2019-03-02 07:04] LABS: ALANINE AMINOTRANSFERASE 67 U/L (21-72); ALBUMIN 2.2 g/dL (3.5-5.0); ALKALINE PHOSPHATASE 67 U/L (38-126); ASPARTATE AMINO TRANSFERASE 51 U/L (17-59); BILIRUBIN,DIRECT 0.4 mg/dL (0.0-0.4); BILIRUBIN,TOTAL 0.5 mg/dL (0.2-1.3); BLOOD UREA NITROGEN 13 mg/dL (7-20); CALCIUM 8.4 mg/dL (8.4-10.2); GLUCOSE 75 mg/dL (75-110); PHOSPHORUS 3.8 mg/dL (2.5-4.5); TOTAL PROTEIN 4.6 g/dL (6.3-8.2)
[2019-03-02 07:39] LABS: ANION GAP 6 (5-19); CARBON DIOXIDE 28 mmol/L (22-30); CHLORIDE 101 mmol/L (98-107); POTASSIUM 3.9 mmol/L (3.6-5.0); SODIUM 135.2 mmol/L (137-145)
[2019-03-02] MEDS: IPRATROPIUM/ALBUTEROL 0.5-2.5 MG/3 ML AMPUL NEB SCH ×3 (08:44→23:49)
[2019-03-02] MEDS: ACETYLCYSTEINE 20% SOLN 800 MG/4 ML VIAL.NEB NEB SCH ×2 (08:44→19:46)
[2019-03-02] MEDS: PREDNISONE 20 MG TABLET PO SCH (10:44)
[2019-03-02] MEDS: DILTIAZEM HCL 120 MG CAP.SR.24H PO SCH (10:44)
[2019-03-02] MEDS: MIDODRINE HCL 5 MG TABLET PO SCH ×3 (10:44→18:15)
[2019-03-02] MEDS: APIXABAN 5 MG TABLET PO SCH ×2 (10:44→18:15)
[2019-03-02] MEDS: GUAIFENESIN 600 MG TABLET.SA PO SCH ×2 (10:44→21:10)
[2019-03-02] MEDS: DIGOXIN 0.125 MG TABLET PO SCH (10:46)
[2019-03-02] MEDS: PANTOPRAZOLE SODIUM 40 MG TABLET.DR PO SCH (10:49)
[2019-03-02] MEDS: FLUCONAZOLE 100 MG TABLET PO SCH (10:54)
[2019-03-02] MEDS: FLUTICASONE/VILANTEROL 200-25 MCG/DOSE IH SCH (17:51)
[2019-03-02] MEDS: GABAPENTIN 300 MG CAPSULE PO SCH (18:15)
[2019-03-02] MEDS: LEVALBUTEROL HCL NEB 1.25 MG/3 ML AMPUL NEB PRN (19:46)
--- NOTE | 2019-03-02 21:18 | PDOC PROGRESS REPORT ---
Subjective Progress Note for:: 03/02/19 Subjective:: AMELIA BOB is a 68 year old male with a PMH of chronic atrial fibrillation, anticoagulated on Eliquis, CHF, COPD, GERD, opiate dependent chronic pain, obesity, and debility who was admitted for a multifocal healthcare associated pneumonia and UTI. Patient was seen on morning rounds. He is found resting in bed comfortably on supplemental oxygen via nasal cannula at 2.5 lpm; he is not home O2 dependent. The patient stated he was able sleep overnight using BIPAP without waking up at night. The patient states he feels well today. On exam, lung sounds are coarse but improved when compared to yesterday. Continue mucomyst 20% and CPT to help the patient expectorate. Plan to remain inpatient while the patient receives treatment for healthcare associated PNA and UTI. Discussed with discharge planning and the patient will require home CPAP machine as well as home O2. Reason For Visit: PNEUMONIA Physical Exam Vital Signs: Temp Pulse Resp BP Pulse Ox 98.0 F 78 20 129/68 H 95 03/02/19 17:00 03/02/19 19:47 03/02/19 19:47 03/02/19 17:00 03/02/19 19:47 Pulse Oximeter Continuous Start: 02/21/19 16:17 Freq: RTQ4 Status: Active Protocol: Document 03/02/19 19:47 [facility] (Rec: 03/02/19 20:05 [facility] [id number]) Pulse Oximetry Assessment Oxygen Saturation (92-100) 95 Oxygen Flow Rate (L/min) 3 Oxygen Delivery Method Nasal Cannula Fraction of Inspired Oxygen (FIO2) 32 Equipment Usage Equipment in Use Continuous SpO2 Machine # 11 Pulse Oximeter Nocturnal Start: 02/24/19 10:18 Freq: RTQ4 Status: Complete Protocol: Document 02/25/19 08:00 [facility] (Rec: 02/25/19 09:13 [facility] [email or web address]) Nocturnal Pulse Oximetry Equipment Usage Equipment in Use Oxygen Delivery Method (includes room Nasal Cannula air) O2 Sat by Pulse Oximetry (92-100) 89 Continuous Pulse Oximeter Set Up No: Had from previous study. Continuous SpO2 Machine # 11 Additional RT Notes Other Study began at 21:40 on RA with 02 saturation 83% 21:00 - on NC 1.5lpm 02 saturation 87% 21:58 - on NC 2lpm 02 saturation 90% 00:05 - on NC 3lpm 02 saturation 89% 01:50 - on NC 4lpm 02 saturation 88% 03:45 - on NC 4lpm 02 saturation 89% Study completed by RT Contreras . Intake & Output 03/01/19 03/02/19 03/03/19 06:59 06:59 06:59 Intake Total 1500 1780 790 Balance 1500 1780 790 Weight 109.9 kg 110.4 kg General appearance: PRESENT: no acute distress, morbidly obese Head exam: PRESENT: atraumatic, normocephalic Eye exam: PRESENT: conjunctiva pink, EOMI, PERRLA. ABSENT: scleral icterus Ear exam: PRESENT: normal external ear exam Mouth exam: PRESENT: moist, tongue midline Teeth exam: PRESENT: edentulous Neck exam: PRESENT: full ROM. ABSENT: carotid bruit, JVD, lymphadenopathy, thyromegaly Respiratory exam: PRESENT: clear to auscultation almaz, symmetrical, unlabored. ABSENT: rales, rhonchi, wheezes Cardiovascular exam: PRESENT: RRR. ABSENT: diastolic murmur, rubs, systolic murmur Pulses: PRESENT: normal radial pulses, normal dorsalis pedis pul Vascular exam: PRESENT: pallor GI/Abdominal exam: PRESENT: normal bowel sounds, soft. ABSENT: distended, guarding, mass, organolmegaly, rebound, tenderness Rectal exam: PRESENT: deferred Extremities exam: PRESENT: full ROM. ABSENT: calf tenderness, clubbing, pedal edema Musculoskeletal exam: PRESENT: full ROM Neurological exam: PRESENT: alert, awake, oriented to person, oriented to place, oriented to time, oriented to situation Psychiatric exam: PRESENT: appropriate affect, normal mood Skin exam: PRESENT: dry, intact, warm. ABSENT: cyanosis, rash Results Laboratory Results: 03/02/19 05:26 03/02/19 05:26 03/02/19 03/02/19 05:26 05:26 WBC 5.7 RBC 2.95 L Hgb 9.4 L Hct 27.7 L MCV 94 MCH 32.1 MCHC 34.1 RDW 15.1 H Plt Count 240 Sodium 135.2 L Potassium 3.9 Chloride 101 Carbon Dioxide 28 Anion Gap 6 BUN 13 Creatinine 0.61 Est GFR ( Amer) > 60 Est GFR (Non-Af Amer) > 60 Glucose 75 Calcium 8.4 Phosphorus 3.8 Magnesium 2.0 Total Bilirubin 0.5 AST 51 ALT 67 Alkaline Phosphatase 67 Total Protein 4.6 L Albumin 2.2 L 02/21/19 02/21/19 02/21/19 12:18 12:18 18:06 Creatine Kinase < 20 L CK-MB (CK-2) 0.41 Troponin I < 0.012 < 0.012 NT-Pro-B Natriuret Pep 1800 H Impressions: Chest/Abdomen CTA 02/21/19 13:11 IMPRESSION: 1. Negative examination for pulmonary embolism. 2. Small bilateral pleural effusions and associated atelectasis or consolidation. There is extensive bilateral clustered heterogeneous pulmonary opacity most in in the right lung and consolidations of the left upper lobe and right lung base. General constellation of findings is most consistent with multifocal infection. Chest X-Ray 02/24/19 00:00 IMPRESSION: Bilateral pneumonia. No significant change. Status: Imported from PACS Assessment and Plan - Diagnosis (1) Multifocal pneumonia Is this a current diagnosis for this admission?: Yes Plan: Improved Seen on CT and CXR on admission weaning oxygen (now on 2.5 L v 5 at time of admission) Blood cultures are negative Sputum culture shows Tiffany albicans and normal respiratory brinda but was obtained 3 days after admission 02/24 Repeat CXR shows B/L PNA without significant change. Recent ABG shows metabolic alkalosis. No hypercapnia. PO2 64.2 on supplemental oxygen via nasal cannula at 3 L/min. Was empirically placed on IV vancomycin, Levaquin, and Zosyn for treatment of healthcare associated PNA with MRSA risk factors. Vancomycin and Levaquin were d/c'd due to improved clinical picture. Patient completed course of Zosyn for healthcare associated PNA. Supplemental oxygen and BiPAP as needed to maintain saturations >88%. Use nasal BiPAP mask QHS Schedule and PRN nebulizer treatments. Mucomyst 20% nebulizers every 6 hours. Mucinex twice daily. Chest physiotherapy twice daily. Incentive spirometer and flutter valve to bedside. (2) Acute respiratory failure with hypoxia Is this a current diagnosis for this admission?: Yes Plan: Maintaining oxygen saturations on supplemental oxygen via nasal cannula. He is not home O2 dependent. Secondary to #1. No wheezing on exam Wean PO prednisone Patient denied a history of COPD, home medication reconciliation reveals that he is on fluticasone/salmeterol Remaining management as above. (3) Pleural effusion Is this a current diagnosis for this admission?: Yes Plan: Noted on CTA of the chest. Likely secondary to multifocal pneumonia, may also be a consequence of his CHF. Primary management as above. (4) CHF (congestive heart failure) Qualifiers: Heart failure type: unspecified Heart failure chronicity: unspecified Qualified Code(s): I50.9 - Heart failure, unspecified Is this a current diagnosis for this admission?: Yes Plan: Stable and without exacerbation at this time. Echocardiogram (November 2017) was suboptimal but did demonstrate LVEF low normal with mild concentric LVH, severely debilitated left atrium, and moderately dilatated right atrium. Continue home dose diltiazem, statin therapy, and Eliquis. Per Dr. Rincon, decrease Digoxin from daily to 5x weekly. Cardiac diet, strict I&O's, daily weights. (5) Hypothyroidism Is this a current diagnosis for this admission?: Yes Plan: Ruled out. Patient has a history of hypothyroidism; does not appear that he is on Synthroid at home. TSH is 2.66; does not require levothyroxine at this time. (6) Opiate dependence due to chronic pain Is this a current diagnosis for this admission?: Yes Plan: We will continue the patient's home dose oxycodone 5 mg 3 times daily as needed for pain. (7) Anemia Qualifiers: Anemia type: unspecified type Qualified Code(s): D64.9 - Anemia, unspecified Is this a current diagnosis for this admission?: Yes Plan: Resolved Hgb 9.4 today Baseline hemoglobin appears to be 8.8. Anemia panel is unremarkable. No evidence of active bleeding at this time. Will monitor with daily CBC. IVF have been discontinued. (8) Obesity (BMI 35.0-39.9 without comorbidity) Is this a current diagnosis for this admission?: Yes Plan: Dietary discretion is advised. Patient was placed on a cardiac diet. (9) Physical deconditioning Is this a current diagnosis for this admission?: Yes Plan: PT/OT evaluations requested. Fall precautions. Discharge planning is consulted, the patient will require home PT/OT (he is refusing SNF) (10) Hypoglycemia Is this a current diagnosis for this admission?: Yes Plan: Resolved. Patient is noted to have fasting hypoglycemia in the mid 57-65 each morning; no hypoglycemia following addition of bedtime snack. The patient is not diabetic and not on glucose lowering medications. He does have a history of gastric banding. TSH and a.m. cortisol are normal. Asked nursing to provide bedtime snack. (11) Tinnitus Qualifiers: Laterality: bilateral Qualified Code(s): H93.13 - Tinnitus, bilateral Is this a current diagnosis for this admission?: Yes Plan: Home dose digoxin 0.125 mg daily was continued at time of admission. Digoxin level 1.37. 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 Reported several weeks of tinnitus. Spoke with the patient's established business continuity management director Dr. Rincon today. Dr. Rincon recommends decreasing digoxin to 5 times weekly (Tuesday through Tuesday) with goal of digoxin level <1. (12) UTI (urinary tract infection) Qualifiers: Urinary tract infection type: acute cystitis Hematuria presence: without hematuria Qualified Code(s): N30.00 - Acute cystitis without hematuria Is this a current diagnosis for this admission?: Yes Plan: Urinalysis reveals urinary tract infection; present on admission. Urine culture demonstrates pansensitive Klebsiella. IV vancomycin and Levaquin are discontinued. We will continue IV Zosyn with plans to transition to Augmentin at discharge for dual coverage of UTI and bronchitis/pneumonia. - Time Time Spent with patient: 15-24 minutes Medications reviewed and adjusted accordingly: Yes Anticipated discharge: Home Within: within 48 hours - Inpatient Certification Based on my medical assessment, after consideration of the patient's comorbidities, presenting symptoms, or acuity I expect that the services needed warrant INPATIENT care.: Yes I certify that my determination is in accordance with my understanding of Medicare's requirements for reasonable and necessary INPATIENT services [42 CFR 412.3e].: Yes Medical Necessity: Need For Continuous Telemetry Monitoring, Need for Nebulizer Therapy and Monitoring of Response
[2019-03-03] MEDS: BUPROPION HCL 100 MG TABLET PO SCH ×3 (05:30→21:15)
[2019-03-03 06:21] LABS: HEMATOCRIT 27.9 % (37.9-51.0); HEMOGLOBIN 9.5 g/dL (13.5-17.0); MEAN CORPUSCULAR HEMOGLOBIN 32.1 pg (27.0-33.4); MEAN CORPUSCULAR HGB CONC 33.9 g/dL (32.0-36.0); MEAN CORPUSCULAR VOLUME 95 fl (80-97); PLATELET COUNT 258 10^3/uL (150-450); RED BLOOD COUNT 2.95 10^6/uL (4.35-5.55); RED CELL DISTRIBUTION WIDTH 15.2 % (11.5-14.0); WHITE BLOOD COUNT 5.2 10^3/uL (4.0-10.5)
[2019-03-03 06:39] LABS: ALANINE AMINOTRANSFERASE 68 U/L (21-72); ALBUMIN 2.1 g/dL (3.5-5.0); ALKALINE PHOSPHATASE 62 U/L (38-126); ASPARTATE AMINO TRANSFERASE 54 U/L (17-59); BILIRUBIN,DIRECT 0.4 mg/dL (0.0-0.4); BILIRUBIN,TOTAL 0.4 mg/dL (0.2-1.3); BLOOD UREA NITROGEN 11 mg/dL (7-20); CALCIUM 8.6 mg/dL (8.4-10.2); GLUCOSE 73 mg/dL (75-110); TOTAL PROTEIN 4.4 g/dL (6.3-8.2)
[2019-03-03 06:46] LABS: CARBON DIOXIDE 32 mmol/L (22-30); CHLORIDE 101 mmol/L (98-107); SODIUM 135.8 mmol/L (137-145)
[2019-03-03 06:50] LABS: ANION GAP 3 (5-19)
[2019-03-03] MEDS: ACETYLCYSTEINE 20% SOLN 800 MG/4 ML VIAL.NEB NEB SCH ×2 (08:32→20:39)
[2019-03-03] MEDS: IPRATROPIUM/ALBUTEROL 0.5-2.5 MG/3 ML AMPUL NEB SCH ×2 (08:32→15:45)
[2019-03-03] MEDS: MIDODRINE HCL 5 MG TABLET PO SCH ×3 (09:53→18:05)
[2019-03-03] MEDS: PREDNISONE 20 MG TABLET PO SCH (09:53)
[2019-03-03] MEDS: PANTOPRAZOLE SODIUM 40 MG TABLET.DR PO SCH (09:53)
[2019-03-03] MEDS: APIXABAN 5 MG TABLET PO SCH ×2 (09:54→18:05)
[2019-03-03] MEDS: DILTIAZEM HCL 120 MG CAP.SR.24H PO SCH (09:54)
[2019-03-03] MEDS: GUAIFENESIN 600 MG TABLET.SA PO SCH ×2 (09:54→21:15)
[2019-03-03] MEDS: FLUTICASONE/VILANTEROL 200-25 MCG/DOSE IH SCH (11:17)
--- NOTE | 2019-03-03 16:40 | PDOC PROGRESS REPORT ---
Subjective Progress Note for:: 03/03/19 Subjective:: AMELIA BOB is a 68 year old male with a PMH of chronic atrial fibrillation, anticoagulated on Eliquis, CHF, COPD, GERD, opiate dependent chronic pain, obesity, and debility who was admitted for a multifocal healthcare associated pneumonia and UTI. Patient was seen on morning rounds. He is found resting in bed comfortably on supplemental oxygen via nasal cannula at 2.5 lpm; he is not home O2 dependent. The patient stated he did not sleep well overnight, only used BiPAP for a few hours, was awake the rest of the night on nasal cannula. The patient states he f eels well today, is ready to go home. On exam, lung sounds have improved significantly but still remain coarse. Continue mucomyst 20% and CPT to help the patient expectorate. Plan to remain inpatient while the patient receives treatment for healthcare associated PNA and UTI. Discussed with discharge planning and the patient will require home CPAP machine as well as home O2. We will plan for nocturnal pulse oximetry while on room air. Plan to send patient home on Tuesday Reason For Visit: PNEUMONIA Physical Exam Vital Signs: Temp Pulse Resp BP Pulse Ox 97.7 F 69 16 126/59 H 97 03/03/19 11:47 03/03/19 15:45 03/03/19 15:45 03/03/19 11:47 03/03/19 15:45 Pulse Oximeter Continuous Start: 02/21/19 16:17 Freq: RTQ4 Status: Active Protocol: Document 03/03/19 15:45 LDA (Rec: 03/03/19 15:48 LDA [email or web address]) Pulse Oximetry Assessment Oxygen Saturation (92-100) 96 Oxygen Flow Rate (L/min) 3 Oxygen Delivery Method Nasal Cannula Fraction of Inspired Oxygen (FIO2) 32 Equipment Usage Equipment in Use Continuous SpO2 Machine # 11 Pulse Oximeter Nocturnal Start: 02/24/19 10:18 Freq: RTQ4 Status: Complete Protocol: Document 02/25/19 08:00 [facility] (Rec: 02/25/19 09:13 [facility] [email or web address]) Nocturnal Pulse Oximetry Equipment Usage Equipment in Use Oxygen Delivery Method (includes room Nasal Cannula air) O2 Sat by Pulse Oximetry (92-100) 89 Continuous Pulse Oximeter Set Up No: Had from previous study. Continuous SpO2 Machine # 11 Additional RT Notes Other Study began at 21:40 on RA with 02 saturation 83% 21:00 - on NC 1.5lpm 02 saturation 87% 21:58 - on NC 2lpm 02 saturation 90% 00:05 - on NC 3lpm 02 saturation 89% 01:50 - on NC 4lpm 02 saturation 88% 03:45 - on NC 4lpm 02 saturation 89% Study completed by RT Contreras . Pulse Oximeter Nocturnal Start: 03/02/19 19:48 Freq: QHS Status: Complete Protocol: Document 03/03/19 04:17 DBE (Rec: 03/03/19 04:18 DBE [email or web address]) Nocturnal Pulse Oximetry Equipment Usage Equipment in Use Oxygen Delivery Method (includes room Nasal Cannula air) O2 Sat by Pulse Oximetry (92-100) 99 Continuous Pulse Oximeter Set Up Yes Continuous SpO2 Discontinued No Continuous SpO2 Machine # 11 Intake & Output 03/02/19 03/03/19 03/04/19 06:59 06:59 06:59 Intake Total 1780 1070 360 Balance 1780 1070 360 Weight 110.4 kg 108.4 kg General appearance: PRESENT: no acute distress, obese Head exam: PRESENT: atraumatic, normocephalic Eye exam: PRESENT: conjunctiva pink, EOMI, PERRLA. ABSENT: scleral icterus Ear exam: PRESENT: normal external ear exam Mouth exam: PRESENT: moist, tongue midline Teeth exam: PRESENT: edentulous Neck exam: PRESENT: full ROM. ABSENT: carotid bruit, JVD, lymphadenopathy, thyromegaly Respiratory exam: PRESENT: symmetrical, unlabored, other - Coarse lung sounds bilaterally. ABSENT: rales, rhonchi, wheezes Cardiovascular exam: PRESENT: RRR. ABSENT: diastolic murmur, rubs, systolic murmur Pulses: PRESENT: normal radial pulses, normal dorsalis pedis pul Vascular exam: PRESENT: pallor GI/Abdominal exam: PRESENT: normal bowel sounds, soft. ABSENT: distended, guarding, mass, organolmegaly, rebound, tenderness Rectal exam: PRESENT: deferred Extremities exam: PRESENT: full ROM. ABSENT: calf tenderness, clubbing, pedal edema Musculoskeletal exam: PRESENT: ambulatory - With assistance, full ROM Neurological exam: PRESENT: alert, awake, oriented to person, oriented to place, oriented to time, oriented to situation Psychiatric exam: PRESENT: appropriate affect, normal mood Skin exam: PRESENT: dry, intact, warm. ABSENT: cyanosis, rash Results Laboratory Results: 03/03/19 05:20 03/03/19 05:20 03/03/19 03/03/19 05:20 05:20 WBC 5.2 RBC 2.95 L Hgb 9.5 L Hct 27.9 L MCV 95 MCH 32.1 MCHC 33.9 RDW 15.2 H Plt Count 258 Sodium 135.8 L Potassium 4.0 Chloride 101 Carbon Dioxide 32 H Anion Gap 3 L BUN 11 Creatinine 0.65 Est GFR ( Amer) > 60 Est GFR (Non-Af Amer) > 60 Glucose 73 L Calcium 8.6 Phosphorus 4.0 Magnesium 2.1 Total Bilirubin 0.4 AST 54 ALT 68 Alkaline Phosphatase 62 Total Protein 4.4 L Albumin 2.1 L 02/21/19 02/21/19 02/21/19 12:18 12:18 18:06 Creatine Kinase < 20 L CK-MB (CK-2) 0.41 Troponin I < 0.012 < 0.012 NT-Pro-B Natriuret Pep 1800 H Impressions: Chest/Abdomen CTA 02/21/19 13:11 IMPRESSION: 1. Negative examination for pulmonary embolism. 2. Small bilateral pleural effusions and associated atelectasis or consolidation. There is extensive bilateral clustered heterogeneous pulmonary opacity most in in the right lung and consolidations of the left upper lobe and right lung base. General constellation of findings is most consistent with multifocal infection. Chest X-Ray 02/24/19 00:00 IMPRESSION: Bilateral pneumonia. No significant change. Status: Imported from PACS Assessment and Plan - Diagnosis (1) Multifocal pneumonia Is this a current diagnosis for this admission?: Yes Plan: Improved Seen on CT and CXR on admission weaning oxygen (now on 2.5 L v 5 at time of admission) Blood cultures are negative Sputum culture shows Tiffany albicans and normal respiratory brinda but was obtained 3 days after admission 02/24 Repeat CXR shows B/L PNA without significant change. Was empirically placed on IV vancomycin, Levaquin, and Zosyn for treatment of healthcare associated PNA with MRSA risk factors. Vancomycin and Levaquin were d/c'd due to improved clinical picture. Patient completed course of Zosyn for healthcare associated PNA. Supplemental oxygen and BiPAP as needed to maintain saturations >88%. Use nasal BiPAP mask QHS Schedule and PRN nebulizer treatments. Mucomyst 20% nebulizers every 6 hours. Mucinex twice daily. Chest physiotherapy twice daily. Incentive spirometer and flutter valve to bedside. (2) Acute respiratory failure with hypoxia Is this a current diagnosis for this admission?: Yes Plan: Maintaining oxygen saturations on supplemental oxygen via nasal cannula. He is not home O2 dependent. Secondary to #1. No wheezing on exam Wean PO prednisone Patient denied a history of COPD, home medication reconciliation reveals that he is on fluticasone/salmeterol Remaining management as above. (3) Pleural effusion Is this a current diagnosis for this admission?: Yes Plan: Noted on CTA of the chest. Likely secondary to multifocal pneumonia, may also be a consequence of his CHF. Primary management as above. (4) CHF (congestive heart failure) Qualifiers: Heart failure type: unspecified Heart failure chronicity: unspecified Qualified Code(s): I50.9 - Heart failure, unspecified Is this a current diagnosis for this admission?: Yes Plan: Stable and without exacerbation at this time. Echocardiogram (November 2017) was suboptimal but did demonstrate LVEF low normal with mild concentric LVH, severely debilitated left atrium, and moderately dilatated right atrium. Continue home dose diltiazem, statin therapy, and Eliquis. Per Dr. Rincon, decrease Digoxin from daily to 5x weekly. Cardiac diet, strict I&O's, daily weights. (5) Hypothyroidism Is this a current diagnosis for this admission?: Yes Plan: Ruled out. Patient has a history of hypothyroidism; does not appear that he is on Synthroid at home. TSH is 2.66; does not require levothyroxine at this time. (6) Opiate dependence due to chronic pain Is this a current diagnosis for this admission?: Yes Plan: We will continue the patient's home dose oxycodone 5 mg 3 times daily as needed for pain. (7) Anemia Qualifiers: Anemia type: unspecified type Qualified Code(s): D64.9 - Anemia, unspecified Is this a current diagnosis for this admission?: Yes Plan: Resolved Hgb 9.5 today Baseline hemoglobin appears to be 8.8. Anemia panel is unremarkable. No evidence of active bleeding at this time. Will monitor with daily CBC. IVF have been discontinued. (8) Obesity (BMI 35.0-39.9 without comorbidity) Is this a current diagnosis for this admission?: Yes Plan: Dietary discretion is advised. Patient was placed on a cardiac diet. (9) Physical deconditioning Is this a current diagnosis for this admission?: Yes Plan: PT/OT evaluations requested. Fall precautions. Discharge planning is consulted, the patient will require home PT/OT (he is refusing SNF) (10) Hypoglycemia Is this a current diagnosis for this admission?: Yes Plan: Resolved. Patient is noted to have fasting hypoglycemia in the mid 57-65 each morning; no hypoglycemia following addition of bedtime snack. The patient is not diabetic and not on glucose lowering medications. He does have a history of gastric banding. TSH and a.m. cortisol are normal. Asked nursing to provide bedtime snack. (11) Tinnitus Qualifiers: Laterality: bilateral Qualified Code(s): H93.13 - Tinnitus, bilateral Is this a current diagnosis for this admission?: Yes Plan: Home dose digoxin 0.125 mg daily was continued at time of admission. Digoxin level 1.37. 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 Reported several weeks of tinnitus. 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 Rincon today. Dr. Rincon recommends decreasing digoxin to 5 times weekly (Tuesday through ) with goal of digoxin level <1. (12) UTI (urinary tract infection) Qualifiers: Urinary tract infection type: acute cystitis Hematuria presence: without hematuria Qualified Code(s): N30.00 - Acute cystitis without hematuria Is this a current diagnosis for this admission?: Yes Plan: Urinalysis reveals urinary tract infection; present on admission. Urine culture demonstrates pansensitive Klebsiella. IV vancomycin and Levaquin are discontinued. Completed course of IV Zosyn, double coverage for UTI and bronchitis/pneumonia - Time Time Spent with patient: 15-24 minutes Medications reviewed and adjusted accordingly: Yes Anticipated discharge: Home, Home with Homehealth Within: within 48 hours - Inpatient Certification Based on my medical assessment, after consideration of the patient's comorb idities, presenting symptoms, or acuity I expect that the services needed warrant INPATIENT care.: Yes I certify that my determination is in accordance with my understanding of Medicare's requirements for reasonable and necessary INPATIENT services [42 CFR 412.3e].: Yes Medical Necessity: Need For Continuous Telemetry Monitoring, Need for Nebulizer Therapy and Monitoring of Response, Risk of Complication if Not Cared For in Hospital
[2019-03-03] MEDS: GABAPENTIN 300 MG CAPSULE PO SCH (18:05)
[2019-03-03] MEDS: LEVALBUTEROL HCL NEB 1.25 MG/3 ML AMPUL NEB PRN (20:39)
[2019-03-04] MEDS: IPRATROPIUM/ALBUTEROL 0.5-2.5 MG/3 ML AMPUL NEB SCH ×4 (00:16→23:50)
[2019-03-04 04:42] LABS: HEMATOCRIT 26.9 % (37.9-51.0); MEAN CORPUSCULAR HEMOGLOBIN 31.4 pg (27.0-33.4); MEAN CORPUSCULAR HGB CONC 33.5 g/dL (32.0-36.0); MEAN CORPUSCULAR VOLUME 94 fl (80-97); PLATELET COUNT 287 10^3/uL (150-450); RED BLOOD COUNT 2.88 10^6/uL (4.35-5.55); RED CELL DISTRIBUTION WIDTH 15.5 % (11.5-14.0)
[2019-03-04 05:05] LABS: ALANINE AMINOTRANSFERASE 67 U/L (21-72); ALBUMIN 2.2 g/dL (3.5-5.0); ALKALINE PHOSPHATASE 60 U/L (38-126); ASPARTATE AMINO TRANSFERASE 54 U/L (17-59); BILIRUBIN,DIRECT 0.4 mg/dL (0.0-0.4); BILIRUBIN,TOTAL 0.5 mg/dL (0.2-1.3); BLOOD UREA NITROGEN 12 mg/dL (7-20); CALCIUM 8.5 mg/dL (8.4-10.2); GLUCOSE 93 mg/dL (75-110); PHOSPHORUS 3.7 mg/dL (2.5-4.5); POTASSIUM 3.8 mmol/L (3.6-5.0); TOTAL PROTEIN 4.5 g/dL (6.3-8.2)
[2019-03-04 05:10] LABS: CARBON DIOXIDE 31 mmol/L (22-30); CHLORIDE 100 mmol/L (98-107); SODIUM 134.8 mmol/L (137-145)
[2019-03-04 05:16] LABS: ANION GAP 4 (5-19)
[2019-03-04] MEDS: BUPROPION HCL 100 MG TABLET PO SCH ×3 (05:51→22:02)
[2019-03-04] MEDS: ACETYLCYSTEINE 20% SOLN 800 MG/4 ML VIAL.NEB NEB SCH ×2 (08:40→20:04)
--- NOTE | 2019-03-04 10:31 | RADIOLOGY REPORT (SQ) ---
EXAM DESCRIPTION: CHEST SINGLE VIEW COMPLETED DATE/TIME: 03/04/2019 9:41 am REASON FOR STUDY: sob. rhonci COMPARISON: CTA chest 02/21/2019 Chest films 01/04/2019, 02/21/2019, 02/24/2019 EXAM PARAMETERS: NUMBER OF VIEWS: One view. TECHNIQUE: Single frontal radiographic view of the chest acquired. RADIATION DOSE: NA LIMITATIONS: None. FINDINGS: LUNGS AND PLEURA: Patchy right lung airspace disease most pronounced at the right lower lo be, similar compared to previous studies. No gross right pleural effusion or pneumothorax. Chronic collapse left upper lobe. Left lower lobe well inflated and clear. No left pleural effusion or pneumothorax. MEDIASTINUM AND HILAR STRUCTURES: No masses. Contour normal. HEART AND VASCULAR STRUCTURES: Heart normal in size. Normal vasculature. BONES: Advanced arthritis right shoulder. HARDWARE: Lower cervical fusion hardware OTHER: No other significant finding. IMPRESSION: Continued partial clearing of the airspace disease in the right lung Chronic left upper lobe collapse unchanged. No acute left-sided infiltrates TECHNICAL DOCUMENTATION: JOB ID: [id number] [employer]- All Rights Reserved Reading location - IP/workstation name: [email or web address]
[2019-03-04] MEDS: APIXABAN 5 MG TABLET PO SCH ×2 (10:38→18:14)
[2019-03-04] MEDS: MIDODRINE HCL 5 MG TABLET PO SCH ×3 (10:38→18:14)
[2019-03-04] MEDS: FLUTICASONE/VILANTEROL 200-25 MCG/DOSE IH SCH (10:38)
[2019-03-04] MEDS: PANTOPRAZOLE SODIUM 40 MG TABLET.DR PO SCH (10:38)
[2019-03-04] MEDS: PREDNISONE 20 MG TABLET PO SCH (10:38)
[2019-03-04] MEDS: DILTIAZEM HCL 120 MG CAP.SR.24H PO SCH (10:38)
[2019-03-04] MEDS: GUAIFENESIN 600 MG TABLET.SA PO SCH ×2 (10:38→22:02)
[2019-03-04] MEDS ORDERED: VANCOMYCIN HCL 0 MG in DEXTROSE 5%-WATER 250 ML IV NR (16:00)
--- NOTE | 2019-03-04 16:13 | PDOC PROGRESS REPORT ---
Subjective Progress Note for:: 03/04/19 Subjective:: AMELIA BOB is a 68 year old male with a PMH of chronic atrial fibrillation, anticoagulated on Eliquis, CHF, COPD, GERD, opiate dependent chronic pain, obesity, and debility who was admitted for a multifocal healthcare associated pneumonia and UTI. Patient was seen on morning rounds. He is found resting in bed comfortably on supplemental oxygen via nasal cannula at 2.5 lpm; he is not home O2 dependent. The patient has no complaints this morning. Rhonci present on auscultation, worse today when compared to yesterday. Patient completed course of antibiotics for healthcare associated PNA 2 days ago. Was only treated with Zosyn (initially with Vancomycin and Levaquin but they were d/c'd). Repeated CXR, which shows patchy right lung airspace disease pronounced at the RLL. Patient is at high risk for rapid decompensation, plan to restart antibiotics today to appropriately cover for healthcare associated PNA, initiated vancomycin and cefepime. Plan to consult [facility] regarding this patient's case. Plan to remain inpatient while the patient receives treatment for healthcare associated PNA. Reason For Visit: PNEUMONIA Physical Exam Vital Signs: Temp Pulse Resp BP Pulse Ox 98.1 F 72 18 118/65 97 03/04/19 11:34 03/04/19 15:47 03/04/19 15:47 03/04/19 11:34 03/04/19 15:47 Pulse Oximeter Continuous Start: 02/21/19 16:17 Freq: RTQ4 Status: Active Protocol: Document 03/04/19 15:47 LDA (Rec: 03/04/19 15:49 LDA [id number]) Pulse Oximetry Assessment Oxygen Saturation (92-100) 97 Oxygen Flow Rate (L/min) 3 Oxygen Delivery Method Nasal Cannula Fraction of Inspired Oxygen (FIO2) 32 Equipment Usage Equipment in Use Continuous SpO2 Machine # 11 Pulse Oximeter Nocturnal Start: 02/24/19 10:18 Freq: RTQ4 Status: Complete Protocol: Document 02/25/19 08:00 [facility] (Rec: 02/25/19 09:13 [facility] [email or web address]) Nocturnal Pulse Oximetry Equipment Usage Equipment in Use Oxygen Delivery Method (includes room Nasal Cannula air) O2 Sat by Pulse Oximetry (92-100) 89 Continuous Pulse Oximeter Set Up No: Had from previous study. Continuous SpO2 Machine # 11 Additional RT Notes Other Study began at 21:40 on RA with 02 saturation 83% 21:00 - on NC 1.5lpm 02 saturation 87% 21:58 - on NC 2lpm 02 saturation 90% 00:05 - on NC 3lpm 02 saturation 89% 01:50 - on NC 4lpm 02 saturation 88% 03:45 - on NC 4lpm 02 saturation 89% Study completed by RT Diane . Pulse Oximeter Nocturnal Start: 03/02/19 19:48 Freq: QHS Status: Active Protocol: Document 03/04/19 00:16 [facility] (Rec: 03/04/19 00:25 DBE [email or web address]) Nocturnal Pulse Oximetry Equipment Usage Equipment in Use Oxygen Delivery Method (includes room Nasal Cannula air) O2 Sat by Pulse Oximetry (92-100) 94 Continuous SpO2 Machine # 11 Intake & Output 03/03/19 03/04/19 03/05/19 06:59 06:59 06:59 Intake Total 1070 1010 Balance 1070 1010 Weight 108.4 kg 106.1 kg General appearance: PRESENT: no acute distress, morbidly obese Head exam: PRESENT: atraumatic, normocephalic Eye exam: PRESENT: conjunctiva pink, EOMI, PERRLA. ABSENT: scleral icterus Ear exam: PRESENT: normal external ear exam Mouth exam: PRESENT: moist, tongue midline Teeth exam: PRESENT: edentulous Neck exam: PRESENT: full ROM. ABSENT: carotid bruit, JVD, lymphadenopathy, thyromegaly Respiratory exam: PRESENT: clear to auscultation almaz, rhonchi, symmetrical, unlabored. ABSENT: rales, wheezes Cardiovascular exam: PRESENT: RRR. ABSENT: diastolic murmur, rubs, systolic murmur Pulses: PRESENT: normal radial pulses, normal dorsalis pedis pul Vascular exam: PRESENT: pallor GI/Abdominal exam: PRESENT: normal bowel sounds, soft. ABSENT: distended, guarding, mass, organolmegaly, rebound, tenderness Rectal exam: PRESENT: deferred Extremities exam: PRESENT: full ROM. ABSENT: calf tenderness, clubbing, pedal edema Neurological exam: PRESENT: alert, awake, oriented to person, oriented to place, oriented to time, oriented to situation, CN II-XII grossly intact. ABSENT: motor sensory deficit Psychiatric exam: PRESENT: appropriate affect, normal mood. ABSENT: homicidal ideation, suicidal ideation Skin exam: PRESENT: dry, intact, warm. ABSENT: cyanosis, rash Results Laboratory Results: 03/04/19 04:28 03/04/19 04:28 03/04/19 03/04/19 04:28 04:28 WBC 5.0 RBC 2.88 L Hgb 9.0 L Hct 26.9 L MCV 94 MCH 31.4 MCHC 33.5 RDW 15.5 H Plt Count 287 Sodium 134.8 L Potassium 3.8 Chloride 100 Carbon Dioxide 31 H Anion Gap 4 L BUN 12 Creatinine 0.58 Est GFR ( Amer) > 60 Est GFR (Non-Af Amer) > 60 Glucose 93 Calcium 8.5 Phosphorus 3.7 Magnesium 2.0 Total Bilirubin 0.5 AST 54 ALT 67 Alkaline Phosphatase 60 Total Protein 4.5 L Albumin 2.2 L 02/21/19 02/21/19 02/21/19 12:18 12:18 18:06 Creatine Kinase < 20 L CK-MB (CK-2) 0.41 Troponin I < 0.012 < 0.012 NT-Pro-B Natriuret Pep 1800 H Impressions: Chest/Abdomen CTA 02/21/19 13:11 IMPRESSION: 1. Negative examination for pulmonary embolism. 2. Small bilateral pleural effusions and associated atelectasis or consolidation. There is extensive bilateral clustered heterogeneous pulmonary opacity most in in the right lung and consolidations of the left upper lobe and right lung base. General constellation of findings is most consistent with multifocal infection. Chest X-Ray 03/04/19 09:15 IMPRESSION: Continued partial clearing of the airspace disease in the right lung Chronic left upper lobe collapse unchanged. No acute left-sided infiltrates Status: Imported from PACS Assessment and Plan - Diagnosis (1) Multifocal pneumonia Is this a current diagnosis for this admission?: Yes Plan: Improved Seen on CT and CXR on admission weaning oxygen (now on 2.5 L v 5 at time of admission) Blood cultures are negative Sputum culture shows Tiffany albicans and normal respiratory brinda but was obtained 3 days after admission 02/24 Repeat CXR shows B/L PNA without significant change. 03/04 Repeat CXR shows RLL PNA still present but mildly improving Was empirically placed on IV vancomycin, Levaquin, and Zosyn for treatment of healthcare associated PNA with MRSA risk factors. Vancomycin and Levaquin were d/c'd due to improved clinical picture. Patient completed course of Zosyn for healthcare associated PNA. Patient now with B/L rhonci and infiltrate still present on CXR, restarted on Vancomycin and Cefepime per IDSA guidelines Supplemental oxygen and BiPAP as needed to maintain saturations >88%. Schedule and PRN nebulizer treatments. Mucomyst 20% nebulizers every 6 hours. Mucinex twice daily. Chest physiotherapy twice daily. Incentive spirometer and flutter valve to bedside. (2) Acute respiratory failure with hypoxia Is this a current diagnosis for this admission?: Yes Plan: Maintaining oxygen saturations on supplemental oxygen via nasal cannula. He is not home O2 dependent. Secondary to #1. No wheezing on exam Wean PO prednisone Patient denied a history of COPD, home medication reconciliation reveals that he is on fluticasone/salmeterol Remaining management as above. (3) Pleural effusion Is this a current diagnosis for this admission?: Yes Plan: Resolved Noted on CTA of the chest. Likely secondary to multifocal pneumonia, may also be a consequence of his CHF. Repeat CXR 03/04/2019 shows no effusion present Primary management as above. (4) CHF (congestive heart failure) Qualifiers: Heart failure type: unspecified Heart failure chronicity: unspecified Qualified Code(s): I50.9 - Heart failure, unspecified Is this a current diagnosis for this admission?: Yes Plan: Stable and without exacerbation at this time. Echocardiogram (November 2017) was suboptimal but did demonstrate LVEF low normal with mild concentric LVH, severely debilitated left atrium, and moderately dilatated right atrium. Continue home dose diltiazem, statin therapy, and Eliquis. Per Dr. Rincon, decrease Digoxin from daily to 5x weekly. Cardiac diet, strict I&O's, daily weights. (5) Hypothyroidism Is this a current diagnosis for this admission?: Yes Plan: Ruled out. Patient has a history of hypothyroidism; does not appear that he is on Synthroid at home. TSH is 2.66; does not require levothyroxine at this time. (6) Opiate dependence due to chronic pain Is this a current diagnosis for this admission?: Yes Plan: We will continue the patient's home dose oxycodone 5 mg 3 times daily as needed for pain. (7) Anemia Qualifiers: Anemia type: unspecified type Qualified Code(s): D64.9 - Anemia, unspecified Is this a current diagnosis for this admission?: Yes Plan: Resolved Hgb 9.5 today Baseline hemoglobin appears to be 8.8. Anemia panel is unremarkable. No evidence of active bleeding at this time. Will monitor with daily CBC. IVF have been discontinued. (8) Obesity (BMI 35.0-39.9 without comorbidity) Is this a current diagnosis for this admission?: Yes Plan: Dietary discretion is advised. Patient was placed on a cardiac diet. (9) Physical deconditioning Is this a current diagnosis for this admission?: Yes Plan: PT/OT evaluations requested. Fall precautions. Discharge planning is consulted, the patient will require home PT/OT (he is refusing SNF) (10) Hypoglycemia Is this a current diagnosis for this admission?: Yes Plan: Resolved. Patient is noted to have fasting hypoglycemia in the mid 57-65 each morning; no hypoglycemia following addition of bedtime snack. The patient is not diabetic and not on glucose lowering medications. He does have a history of gastric banding. TSH and a.m. cortisol are normal. Asked nursing to provide bedtime snack. (11) Tinnitus Qualifiers: Laterality: bilateral Qualified Code(s): H93.13 - Tinnitus, bilateral Is this a current diagnosis for this admission?: Yes Plan: Home dose digoxin 0.125 mg daily was continued at time of admission. Digoxin level 1.37. 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 Reported several weeks of tinnitus. 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 Rincon today. Dr. Rincon recommends decreasing digoxin to 5 times weekly (Tuesday through Tuesday) with goal of digoxin level <1. (12) UTI (urinary tract infection) Qualifiers: Urinary tract infection type: acute cystitis Hematuria presence: without hematuria Qualified Code(s): N30.00 - Acute cystitis without hematuria Is this a current diagnosis for this admission?: Yes Plan: Urinalysis reveals urinary tract infection; present on admission. Urine culture demonstrates pansensitive Klebsiella. IV vancomycin and Levaquin are discontinued. Completed course of IV Zosyn, double coverage for UTI and bronchitis/pneumonia - Time Time Spent with patient: 15-24 minutes Medications reviewed and adjusted accordingly: Yes Anticipated discharge: Home Within: Other - When medically stable - Inpatient Certification Based on my medical assessment, after consideration of the patient's comorbidities, presenting symptoms, or acuity I expect that the services needed warrant INPATIENT care.: Yes I certify that my determination is in accordance with my understanding of Medicare's requirements for reasonable and necessary INPATIENT services [42 CFR 412.3e].: Yes Medical Necessity: Need Close Monitoring Due to Risk of Patient Decompensation, Need for IV Antibiotics, Risk of Complication if Not Cared For in Hospital
[2019-03-04] MEDS: CEFEPIME HCL 2 GM in DEXTROSE 5%-WATER 50 ML IV SCH (18:14)
[2019-03-04] MEDS: GABAPENTIN 300 MG CAPSULE PO SCH (18:14)
[2019-03-04] MEDS: LEVALBUTEROL HCL NEB 1.25 MG/3 ML AMPUL NEB PRN (20:04)
[2019-03-04] MEDS ORDERED: CEFEPIME 2 GM/D5W RTU 2 GM/50 ML RTUPB IV SCH (22:00)
[2019-03-04] MEDS ORDERED: VANCOMYCIN HCL 1,500 MG in DEXTROSE 5%-WATER 250 ML IV ONE (22:00)
[2019-03-04] MEDS ORDERED: VANCOMYCIN HCL INJ 1000 MG VIAL ONE (22:32)
[2019-03-04] MEDS ORDERED: VANCOMYCIN HCL INJ 500 MG VIAL ONE (22:33)
[2019-03-05] MEDS: BUPROPION HCL 100 MG TABLET PO SCH ×3 (06:11→22:15)
[2019-03-05] MEDS: CEFEPIME HCL 2 GM in DEXTROSE 5%-WATER 50 ML IV SCH ×2 (06:12→18:59)
[2019-03-05] MEDS: ACETYLCYSTEINE 20% SOLN 800 MG/4 ML VIAL.NEB NEB SCH ×2 (08:19→20:15)
[2019-03-05] MEDS: IPRATROPIUM/ALBUTEROL 0.5-2.5 MG/3 ML AMPUL NEB SCH ×2 (08:20→16:19)
[2019-03-05] MEDS: PREDNISONE 20 MG TABLET PO SCH (10:18)
[2019-03-05] MEDS: MIDODRINE HCL 5 MG TABLET PO SCH ×3 (10:18→18:59)
[2019-03-05] MEDS: PANTOPRAZOLE SODIUM 40 MG TABLET.DR PO SCH (10:18)
[2019-03-05] MEDS: DILTIAZEM HCL 120 MG CAP.SR.24H PO SCH (10:18)
[2019-03-05] MEDS: APIXABAN 5 MG TABLET PO SCH ×2 (10:19→18:59)
[2019-03-05] MEDS: GUAIFENESIN 600 MG TABLET.SA PO SCH ×2 (10:19→22:15)
[2019-03-05] MEDS: FLUTICASONE/VILANTEROL 200-25 MCG/DOSE IH SCH (10:19)
[2019-03-05] MEDS: DIGOXIN 0.125 MG TABLET PO SCH (10:20)
[2019-03-05] MEDS: VANCOMYCIN HCL 1,000 MG in DEXTROSE 5%-WATER 250 ML IV SCH ×2 (10:22→22:15)
--- NOTE | 2019-03-05 18:22 | Progress Note ---
Provider Note Provider Note: ID Consult Note Asked to review patient's chart. Pt not seen or examined. Reviewed VS, imaging, microbiology results, provider notes. Mr. Dumont is a 68 year old man with PMH including obesity, CHF, COPD, GERD, opiate dependent chronic pain, and AF on anticoagulation who has been admitted since 02/21/19. He was sent to the ED because his home health nurse was concerned his heart was rapid and irregular and pt had a hard time breathing, per ED note. On arrival O2 sats were in the mid-80s, and he was in AF with RVR. He had a nonproductive cough with coarse breath sounds noted b/l at the bases. Chest CXR was read as showing increased opacity in the R base. CTA of the chest was also performed that showed no PE; b/l effusions were present and b/l heterogenous areas of increased opacity that were felt to be most consistent with multifocal infection. Pt had no fever initially nor during the rest of hospitalization. He had initially a leukocytosis, which resolved after presentation. Blood cultures obtained on admission did not grow anything. Sputum was obtained but 3 days into antibiotic treatment and showed an absence of normal respiratory brinda, only some growth of C albicans. He was empirically treated with vancomycin from 02/21-02/23 and Levaquin from 02/21- 02/22, which were discontinued when he showed clinical improvement, and Zosyn was continued from 02/21-02/28. From 03/01-03/03 he was noted to have coarse but improving lung sounds. Pt reported feeling ready to go home on 03/03, but he needed nocturnal pulse ox monitoring and discharge with home CPAP and O2 that required planning. On 03/04, pt did not have new complaints, but his lung sounds were felt to be more coarse than previous. A repeat CXR on 03/04 was ordered, which was read as showing continued partial clearing of the right lung airspace disease (similar to previous studies, last done on 02/24), and no acute left sided infiltrates. Vanco mycin and cefepime were restarted on 03/04. Impression/Recommendations The patient was empirically treated with a broad spectrum antimicrobial agent Zosyn. He did not have a necrotizing pneumonia, lung abscess or evidence of a empyema or parapneumonic effusion that would help justify a prolonged course of treatment with an agent like Zosyn or cefepime. MRSA pneumonia is not subtle and should be progressive and severe. I do not think that the addition of anti-MRSA activity is likely to benefit the patient. Suggest discontinuing cefepime and vancomycin. There is no new or deteriorating organ failure or new infiltrate. He been afebrile and hemodynamically stable. Some signs and symptoms of pneumonia can be slow to improve, including fatigue and cough that can take 2 weeks or so. Radiographic abnormalities can take 4 weeks or more to resolve despite clinical improvement. He has had slow improvement in terms of hypoxia or oxygen requirements, but he also has cardiopulmonary comorbidities that can contribute to this. It is not clear that he truly has a persistent lung infection that would benefit from more antibiotics, but giving the patient a course of az ithromycin for 5 days can be considered if there is concern regarding the lack of atypical coverage in his initial course of treatment. Joo Garland MD [facility] Infectious Diseases pager [phone]
[2019-03-05] MEDS: GABAPENTIN 300 MG CAPSULE PO SCH (18:59)
[2019-03-05] MEDS: LEVALBUTEROL HCL NEB 1.25 MG/3 ML AMPUL NEB PRN (20:15)
--- NOTE | 2019-03-05 23:04 | PDOC PROGRESS REPORT ---
Subjective Progress Note for:: 03/05/19 Subjective:: AMELIA BOB is a 68 year old male with a PMH of chronic atrial fibrillation, anticoagulated on Eliquis, CHF, COPD, GERD, opiate dependent chronic pain, obesity, and debility who was admitted for a multifocal healthcare associated pneumonia and UTI. Patient was seen on morning rounds. He is found resting in bed comfortably on supplemental oxygen via nasal cannula at 2 lpm. The patient has no complaints this morning. States he was able to get up to edge of bed with PT/OT today. Rhonci present on auscultation, improved today when compared to yesterday. Patient completed course of antibiotics for healthcare associated PNA days ago. Was treated with Zosyn (initially with Vancomycin and Levaquin but they were d/c'd). Repeated CXR, which shows patchy right lung airspace disease pronounced at the RLL. Patient is at high risk for rapid decompensation. Restarted antibiotics yesterday to cover for healthcare associated PNA. Initiated vancomycin and cefepime. Consulted VIDANT MADDI regarding this patient's case, appreciate their expertise. Plan to remain inpatient while the patient receives treatment for healthcare associated PNA. Reason For Visit: PNEUMONIA Physical Exam Vital Signs: Temp Pulse Resp BP Pulse Ox 97.7 F 75 20 122/65 96 03/05/19 20:07 03/05/19 20:15 03/05/19 20:15 03/05/19 20:07 03/05/19 20:15 Pulse Oximeter Continuous Start: 02/21/19 16:17 Freq: RTQ4 Status: Active Protocol: Document 03/05/19 20:15 [facility] (Rec: 03/05/19 21:37 [facility] [id number]) Pulse Oximetry Assessment Oxygen Saturation (92-100) 96 Oxygen Flow Rate (L/min) 4 Oxygen Delivery Method Nasal Cannula Fraction of Inspired Oxygen (FIO2) 36 Equipment Usage Equipment in Use Continuous SpO2 Machine # 11 Pulse Oximeter Nocturnal Start: 02/24/19 10:18 Freq: RTQ4 Status: Complete Protocol: Document 02/25/19 08:00 [facility] (Rec: 02/25/19 09:13 [facility] [id number]) Nocturnal Pulse Oximetry Equipment Usage Equipment in Use Oxygen Delivery Method (includes room Nasal Cannula air) O2 Sat by Pulse Oximetry (92-100) 89 Continuous Pulse Oximeter Set Up No: Had from previous study. Continuous SpO2 Machine # 11 Additional RT Notes Other Study began at 21:40 on RA with 02 saturation 83% 21:00 - on NC 1.5lpm 02 saturation 87% 21:58 - on NC 2lpm 02 saturation 90% 00:05 - on NC 3lpm 02 saturation 89% 01:50 - on NC 4lpm 02 saturation 88% 03:45 - on NC 4lpm 02 saturation 89% Study completed by RT Diane . Pulse Oximeter Nocturnal Start: 03/02/19 19:48 Freq: QHS Status: Active Protocol: Document 03/04/19 00:16 [facility] (Rec: 03/04/19 00:25 [facility] [id number]) Nocturnal Pulse Oximetry Equipment Usage Equipment in Use Oxygen Delivery Method (includes room Nasal Cannula air) O2 Sat by Pulse Oximetry (92-100) 94 Continuous SpO2 Machine # 11 Intake & Output 03/04/19 03/05/19 03/06/19 06:59 06:59 06:59 Intake Total 1010 1520 1252 Balance 1010 1520 1252 Weight 106.1 kg 105.3 kg General appearance: PRESENT: no acute distress, obese Head exam: PRESENT: atraumatic, normocephalic Eye exam: PRESENT: conjunctiva pink, EOMI, PERRLA. ABSENT: scleral icterus Ear exam: PRESENT: normal external ear exam Mouth exam: PRESENT: moist, tongue midline Teeth exam: PRESENT: poor dentation Neck exam: PRESENT: full ROM. ABSENT: carotid bruit, JVD, lymphadenopathy, thyromegaly Respiratory exam: PRESENT: rhonchi, symmetrical, unlabored. ABSENT: rales, wheezes Cardiovascular exam: PRESENT: RRR. ABSENT: diastolic murmur, rubs, systolic murmur Pulses: PRESENT: normal radial pulses, normal dorsalis pedis pul Vascular exam: PRESENT: normal capillary refill GI/Abdominal exam: PRESENT: hernia, normal bowel sounds, soft, other - rotund. obese. ABSENT: distended, guarding, mass, organolmegaly, rebound, tenderness Rectal exam: PRESENT: deferred Extremities exam: PRESENT: pedal edema. ABSENT: calf tenderness, clubbing, full ROM Musculoskeletal exam: ABSENT: ambulatory Neurological exam: PRESENT: alert, awake, oriented to person, oriented to place, oriented to time, oriented to situation, CN II-XII grossly intact. ABSENT: motor sensory deficit Psychiatric exam: PRESENT: appropriate affect, normal mood. ABSENT: homicidal ideation, suicidal ideation Skin exam: PRESENT: dry, intact, pallor, warm. ABSENT: cyanosis, rash Results Laboratory Results: 03/04/19 04:28 03/04/19 04:28 02/21/19 02/21/19 02/21/19 12:18 12:18 18:06 Creatine Kinase < 20 L CK-MB (CK-2) 0.41 Troponin I < 0.012 < 0.012 NT-Pro-B Natriuret Pep 1800 H Impressions: Chest/Abdomen CTA 02/21/19 13:11 IMPRESSION: 1. Negative examination for pulmonary embolism. 2. Small bilateral pleural effusions and associated atelectasis or con solidation. There is extensive bilateral clustered heterogeneous pulmonary opacity most in in the right lung and consolidations of the left upper lobe and right lung base. General constellation of findings is most consistent with multifocal infection. Chest X-Ray 03/04/19 09:15 IMPRESSION: Continued partial clearing of the airspace disease in the right lung Chronic left upper lobe collapse unchanged. No acute left-sided infiltrates Status: Imported from PACS Assessment and Plan - Diagnosis (1) Multifocal pneumonia Is this a current diagnosis for this admission?: Yes Plan: Improved Seen on CT and CXR on admission weaning oxygen (now on 2.5 L v 5 at time of admission) Blood cultures are negative Sputum culture shows Tiffany albicans and normal respiratory brinda but was obtained 3 days after admission 02/24 Repeat CXR shows B/L PNA without significant change. 03/04 Repeat CXR shows RLL PNA still present but mildly improving Was empirically placed on IV vancomycin, Levaquin, and Zosyn for treatment of healthcare associated PNA with MRSA risk factors. Vancomycin and Levaquin were d/c'd due to improved clinical picture. Patient completed course of Zosyn for healthcare associated PNA. Patient now with B/L rhonci and infiltrate still present on CXR, restarted on Vancomycin and Cefepime per IDSA guidelines Supplemental oxygen and BiPAP as needed to maintain saturations >88%. Schedule and PRN nebulizer treatments. Mucomyst 20% nebulizers every 6 hours. Mucinex twice daily. Chest physiotherapy twice daily. Incentive spirometer and flutter valve to bedside. (2) Acute respiratory failure with hypoxia Is this a current diagnosis for this admission?: Yes Plan: Maintaining oxygen saturations on supplemental oxygen via nasal cannula. He is not home O2 dependent. Secondary to #1. No wheezing on exam Wean PO prednisone Patient denied a history of COPD, home medication reconciliation reveals that he is on fluticasone/salmeterol Remaining management as above. (3) Pleural effusion Is this a current diagnosis for this admission?: Yes Plan: Resolved Noted on CTA of the chest. Likely secondary to multifocal pneumonia, may also be a consequence of his CHF. Repeat CXR 03/04/2019 shows no effusion present Primary management as above. (4) CHF (congestive heart failure) Qualifiers: Heart failure type: unspecified Heart failure chronicity: unspecified Qualified Code(s): I50.9 - Heart failure, unspecified Is this a current diagnosis for this admission?: Yes Plan: Stable and without exacerbation at this time. Echocardiogram (November 2017) was suboptimal but did demonstrate LVEF low normal w ith mild concentric LVH, severely debilitated left atrium, and moderately dilatated right atrium. Continue home dose diltiazem, statin therapy, and Eliquis. Per Dr. Rincon, decrease Digoxin from daily to 5x weekly. Cardiac diet, strict I&O's, daily weights. (5) Hypothyroidism Is this a current diagnosis for this admission?: Yes Plan: Ruled out. Patient has a history of hypothyroidism; does not appear that he is on Synthroid at home. TSH is 2.66; does not require levothyroxine at this time. (6) Opiate dependence due to chronic pain Is this a current diagnosis for this admission?: Yes Plan: We will continue the patient's home dose oxycodone 5 mg 3 times daily as needed for pain. (7) Anemia Qualifiers: Anemia type: unspecified type Qualified Code(s): D64.9 - Anemia, unspecified Is this a current diagnosis for this admission?: Yes Plan: Resolved Baseline hemoglobin appears to be 8.8. Anemia panel is unremarkable. No evidence of active bleeding at this time. Will monitor with daily CBC. IVF have been discontinued. (8) Obesity (BMI 35.0-39.9 without comorbidity) Is this a current diagnosis for this admission?: Yes Plan: Dietary discretion is advised. Patient was placed on a cardiac diet. (9) Physical deconditioning Is this a current diagnosis for this admission?: Yes Plan: PT/OT evaluations requested, able to now sit on edge of bed Fall precautions. Discharge planning is consulted, the patient will require home PT/OT (he is refusing SNF) (10) Hypoglycemia Is this a current diagnosis for this admission?: Yes Plan: Resolved. Patient is noted to have fasting hypoglycemia in the mid 57-65 each morning; no hypoglycemia following addition of bedtime snack. The patient is not diabetic and not on glucose lowering medications. He does have a history of gastric banding. TSH and a.m. cortisol are normal. Asked nursing to provide bedtime snack. (11) Tinnitus Qualifiers: Laterality: bilateral Qualified Code(s): H93.13 - Tinnitus, bilateral Is this a current diagnosis for this admission?: Yes Plan: Home dose digoxin 0.125 mg daily was continued at time of admission. Digoxin level 1.37. 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 Reported several weeks of tinnitus. 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 Rincon today. Dr. Rincon recommends decreasing digoxin to 5 times weekly (Tuesday through Tuesday) with goal of digoxin level <1. (12) UTI (urinary tract infection) Qualifiers: Urinary tract infection type: acute cystitis Hematuria presence: without hematuria Qualified Code(s): N30.00 - Acute cystitis without hematuria Is this a current diagnosis for this admission?: Yes Plan: Urinalysis reveals urinary tract infection; present on admission. Urine culture demonstrates pansensitive Klebsiella. IV vancomycin and Levaquin are discontinued. Completed course of IV Zosyn, double coverage for UTI and bronchitis/pneumonia - Time Time Spent with patient: 15-24 minutes Smoking Cessation Education: over 10 minutes Anticipated discharge: Home - Inpatient Certification Based on my medical assessment, after consideration of the patient's comorbidities, presenting symptoms, or acuity I expect that the services needed warrant INPATIENT care.: Yes I certify that my determination is in accordance with my understanding of Medicare's requirements for reasonable and necessary INPATIENT services [42 CFR 412.3e].: Yes Medical Necessity: Need For Continuous Telemetry Monitoring, Need for Nebulizer Therapy and Monitoring of Response, Risk of Complication if Not Cared For in Hospital
[2019-03-06] MEDS: IPRATROPIUM/ALBUTEROL 0.5-2.5 MG/3 ML AMPUL NEB SCH ×3 (00:21→16:16)
[2019-03-06] MEDS: BUPROPION HCL 100 MG TABLET PO SCH ×2 (05:03→13:26)
[2019-03-06] MEDS: CEFEPIME HCL 2 GM in DEXTROSE 5%-WATER 50 ML IV SCH (05:03)
[2019-03-06] MEDS: PANTOPRAZOLE SODIUM 40 MG TABLET.DR PO SCH (08:46)
[2019-03-06] MEDS: ACETYLCYSTEINE 20% SOLN 800 MG/4 ML VIAL.NEB NEB SCH ×2 (09:04→20:27)
[2019-03-06] MEDS: VANCOMYCIN HCL 1,000 MG in DEXTROSE 5%-WATER 250 ML IV SCH (09:43)
[2019-03-06] MEDS: FLUTICASONE/VILANTEROL 200-25 MCG/DOSE IH SCH (09:43)
[2019-03-06] MEDS: DILTIAZEM HCL 120 MG CAP.SR.24H PO SCH (09:44)
[2019-03-06] MEDS: MIDODRINE HCL 5 MG TABLET PO SCH ×3 (09:44→17:22)
[2019-03-06] MEDS: GUAIFENESIN 600 MG TABLET.SA PO SCH (09:44)
[2019-03-06] MEDS: DIGOXIN 0.125 MG TABLET PO SCH (09:44)
[2019-03-06] MEDS: APIXABAN 5 MG TABLET PO SCH ×2 (09:44→17:22)
[2019-03-06] MEDS: PREDNISONE 20 MG TABLET PO SCH (09:44)
[2019-03-06 11:12] VITALS: BP 119/63
[2019-03-06] MEDS: GABAPENTIN 300 MG CAPSULE PO SCH (17:23)
--- NOTE | 2019-03-09 20:31 | PDOC DISCHARGE SUMMARY ---
General - Admit/Disc Date/PCP Admission Date/Primary Care Provider: 02/21/19 15:24 BRAN CERNA PA-C Discharge Date: 03/06/19 - Discharge Diagnosis (1) Multifocal pneumonia Is this a current diagnosis for this admission?: Yes Summary: Resolved. Seen on CT and CXR on admission weaning oxygen (now on 2.5 L v 5 at time of admission) Blood cultures are negative Sputum culture shows Tiffany albicans and normal respiratory brinda but was obtained 3 days after admission 02/24 Repeat CXR shows B/L PNA without significant change. 03/04 Repeat CXR shows RLL PNA still present but mildly improving Patient was admitted to [facility] on continuous cardiac telemetry and was supported with supplemental oxygen and BiPAP as needed to maintain saturations >88%, schedule and PRN nebulizer treatments, Mucomyst 20% nebulizers every 6 hours, Mucinex twice daily, Chest physiotherapy twice daily, and Incentive spirometer and flutter valve. He was empirically placed on IV vancomycin, Levaquin, and Zosyn for treatment of healthcare associated PNA with MRSA risk factors. Vancomycin and Levaquin were d/c'd due to improved clinical picture. Patient completed course of Zosyn for healthcare associated PNA. Infectious disease was consulted and advised patient had completed full course of antibiotic therapy; no further medication recommendations made. The patient's symptoms gradually improved and on day of discharge he was asymptomatic and maintaining oxygen saturations on supplemental oxygen at 2 lpm (improved from 6 lpm at time of admission). Discharge planning has arranged for the patient to receive home O2. He is discharged to home with home health services. He is advised to follow up with his PCP within 1 week. He is encouraged to contact his established can striper, Dr. Rincon, to arrange for overnight sleep study. He is instructed to return to the emergency department as needed for concerning symptoms. (2) Acute respiratory failure with hypoxia Is this a current diagnosis for this admission?: Yes Summary: Maintaining oxygen saturations on supplemental oxygen via nasal cannula. He is not home O2 dependent but does report that he previously had home oxygen. Secondary to #1. Discharge planning has arranged for the patient to receive home oxygen. (3) Pleural effusion Is this a current diagnosis for this admission?: Yes Summary: Resolved Noted on CTA of the chest. Likely secondary to multifocal pneumonia, may also be a consequence of his CHF. Repeat CXR 03/04/2019 shows no effusion present (4) CHF (congestive heart failure) Is this a current diagnosis for this admission?: Yes Summary: Stable and without exacerbation at this time. Echocardiogram (November 2017) was suboptimal but did demonstrate LVEF low normal with mild concentric LVH, severely debilitated left atrium, and moderately dilatated right atrium. Continue home dose diltiazem, statin therapy, and Eliquis. Per Dr. Rincon, Digoxin decreased from daily to 5x weekly secondary to complaint of tinnitus. Recommend patient follow up with Dr. Rincon within 1 month. (5) Hypothyroidism Is this a current diagnosis for this admission?: Yes Summary: Ruled out. Patient has a history of hypothyroidism; does not appear that he is on Synthroid at home. TSH is 2.66; does not require levothyroxine at this time. (6) Opiate dependence due to chronic pain Is this a current diagnosis for this admission?: Yes Summary: Home dose oxycodone was continued, (7) Physical deconditioning Is this a current diagnosis for this admission?: Yes Summary: PT/OT evaluations requested, able to now sit on edge of bed Patient declined SNF placement. Home health nursing, PT/OT, and aide services are resumed at discharge. (8) Obesity (BMI 35.0-39.9 without comorbidity) Is this a current diagnosis for this admission?: Yes Summary: Dietary discretion is advised. (9) Anemia Is this a current diagnosis for this admission?: Yes Summary: Resolved Baseline hemoglobin appears to be 8.8. Anemia panel is unremarkable. No evidence of active bleeding at this time. (10) UTI (urinary tract infection) Is this a current diagnosis for this admission?: Yes Summary: Resolved. Urinalysis reveals urinary tract infection; present on admission. Urine culture demonstrated pansensitive Klebsiella. Received full course of antibiotic therapy. (11) Hypoglycemia Is this a current diagnosis for this admission?: Yes Summary: Patient is noted to have fasting hypoglycemia in the mid 57-65 each morning; no hypoglycemia following addition of bedtime snack. The patient is not diabetic and not on glucose lowering medications. He does have a history of gastric banding. TSH and a.m. cortisol are normal. Recommend patient continue bedtime snacks at home. (12) Tinnitus Is this a current diagnosis for this admission?: Yes Summary: Home dose digoxin 0.125 mg daily was continued at time of admission. Digoxin level 1.37. 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 Reported several weeks of tinnitus. Spoke with the patient's established can striper Dr. Rincon today. Dr. Rincon recommends decreasing digoxin to 5 times weekly (Tuesday through Tuesday) with goal of digoxin level <1. - Additional Information Resuscitation Status: Full Code Discharge Diet: Cardiac Discharge Activity: Activity As Tolerated, Balance Activity w/Rest Prescriptions: Digoxin [Lanoxin 0.125 mg Tablet] 0.125 mg PO MOTUWETHFR@1000 #20 tablet Midodrine HCl [Proamatine 5 mg Tablet] 5 mg PO TID #90 tablet Home Medications: Acetaminophen [Tylenol 325 mg Tablet] 650 mg PO Q4HP PRN 02/21/19 Albuterol Sulfate [Ventolin 0.083% Neb 2.5 mg/3 mL Ampul] 2.5 mg NEB RTTIDP PRN 02/21/19 Apixaban [Eliquis 5 mg Tablet] 5 mg PO BID 02/21/19 Bupropion HCl [Wellbutrin Xl 300mg 24hr Tablet] 300 mg PO DAILY 02/21/19 Diltiazem HCl [Cardizem] 120 mg PO DAILY 02/21/19 Fluticasone Propion/Salmeterol [Wixela 250-50 Inhub] 1 puff IH BID 02/21/19 Gabapentin [Neurontin 300 mg Capsule] 300 mg PO QPM 02/21/19 Mv-Mins/Folic/Lycopene/Ginkgo [One Daily For Men 50+ Adv Tab] 1 tab PO DAILY 02/21/19 Ondansetron HCl [Zofran 4 mg Tablet] 4 mg PO Q4HP PRN 02/21/19 Oxycodone HCl [Oxy-Ir 5 mg Tablet] 5 mg PO Q8HP PRN 02/21/19 Pantoprazole Sodium [Protonix [address] Tablet] 40 mg PO QAM 02/21/19 Acetaminophen [Tylenol 325 mg Tablet] 650 mg PO Q4HP PRN tablet 03/06/19 Digoxin [Lanoxin 0.125 mg Tablet] 0.125 mg PO MOTUWETHFR@1000 #20 tablet 03/06/19 Midodrine HCl [Proamatine 5 mg Tablet] 5 mg PO TID #90 tablet 03/06/19 History of Present Illness History of Present Illness: AMELIA BOB is a 68 year old male with a PMH of chronic atrial fibrillation, anticoagulated on Eliquis, CHF, COPD, GERD, opiate dependent chronic pain, obesity, and debility who presented to the emergency department today with a complaint of shortness of breath. The patient's reports that he has been having difficulty swallowing with nausea and vomiting related to esophageal stricture/previous gastric banding procedure, however, patient denies. He does endorse a generalized fatigue; has had profound debility since discharge from SNF several weeks ago; only able to stand at bedside with assistance x2. During home health visit today, nurse found the patient to be hypoxic in the low 80s on room air with an elevated heart rate. On arrival patient was found to be in atrial fibrillation with a rate of 108, hypoxia (SPO2 85% on room air), with tachypnea (RR 21). Evaluation by the emergency department provider revealed leukocytosis (WBCs 19.7), respiratory alkalosis with hypoxia, mild hyponatremia and hyperkalemia, proBNP 1800 (below baseline), EKG demonstrating atrial fibrillation, chest x-ray showed increased right basilar opacities with development of volume loss to the left lower lobe. Follow-up CTA Chest demonstrated bilateral mild pleural effusions with extensive multifocal consolidations consistent with infection. He has been started on IV vancomycin and Zosyn and is referred to the hospitalist service for admission and management of the above-stated complaints and findings. Physical Exam Vital Signs: Temp Pulse Resp BP Pulse Ox 97.8 F 74 18 119/63 96 03/06/19 18:14 03/06/19 18:14 03/06/19 18:14 03/06/19 18:14 03/06/19 18:14 Pulse Oximeter Continuous Start: 02/21/19 16:17 Freq: RTQ4 Status: Discharge Protocol: Document 03/06/19 16:16 [facility] (Rec: 03/06/19 16:23 [facility] [id number]) Pulse Oximetry Assessment Oxygen Saturation (92-100) 96 Oxygen Flow Rate (L/min) 2 Oxygen Delivery Method Nasal Cannula Equipment Usage Equipment in Use Continuous SpO2 Machine # 11 Pulse Oximeter Nocturnal Start: 02/24/19 10:18 Freq: RTQ4 Status: Complete Protocol: Document 02/25/19 08:00 [facility] (Rec: 02/25/19 09:13 [facility] [id number]) Nocturnal Pulse Oximetry Equipment Usage Equipment in Use Oxygen Delivery Method (includes room Nasal Cannula air) O2 Sat by Pulse Oximetry (92-100) 89 Continuous Pulse Oximeter Set Up No: Had from previous study. Continuous SpO2 Machine # 11 Additional RT Notes Other Study began at 21:40 on RA with 02 saturation 83% 21:00 - on NC 1.5lpm 02 saturation 87% 21:58 - on NC 2lpm 02 saturation 90% 00:05 - on NC 3lpm 02 saturation 89% 01:50 - on NC 4lpm 02 saturation 88% 03:45 - on NC 4lpm 02 saturation 89% Study completed by RT Diane . Pulse Oximeter Nocturnal Start: 03/02/19 19:48 Freq: QHS Status: Complete Protocol: Document 03/04/19 00:16 [facility] (Rec: 03/04/19 00:25 [facility] [email or web address]) Nocturnal Pulse Oximetry Equipment Usage Equipment in Use Oxygen Delivery Method (includes room Nasal Cannula air) O2 Sat by Pulse Oximetry (92-100) 94 Continuous SpO2 Machine # 11 General appearance: PRESENT: no acute distress, cooperative, well-developed, well-nourished - overweight Head exam: PRESENT: atraumatic, normocephalic Eye exam: PRESENT: conjunctiva pink, EOMI, PERRLA. ABSENT: scleral icterus Ear exam: PRESENT: normal external ear exam Mouth exam: PRESENT: moist, tongue midline Neck exam: ABSENT: carotid bruit, JVD, lymphadenopathy, thyromegaly Respiratory exam: PRESENT: clear to auscultation almaz, symmetrical, unlabored, other - supplemental oxygen via NC. ABSENT: rales, rhonchi, wheezes Cardiovascular exam: PRESENT: RRR. ABSENT: diastolic murmur, rubs, systolic murmur Pulses: PRESENT: normal dorsalis pedis pul Vascular exam: PRESENT: normal capillary refill GI/Abdominal exam: PRESENT: normal bowel sounds, soft, other - hernia; rotund. ABSENT: distended, guarding, mass, organolmegaly, rebound, tenderness Rectal exam: PRESENT: deferred Extremities exam: PRESENT: full ROM, pedal edema - trace. ABSENT: calf tenderness, clubbing Musculoskeletal exam: ABSENT: ambulatory Neurological exam: PRESENT: alert, awake, oriented to person, oriented to place, oriented to time, oriented to situation, CN II-XII grossly intact. ABSENT: motor sensory deficit Psychiatric exam: PRESENT: appropriate affect, normal mood. ABSENT: homicidal ideation, suicidal ideation Skin exam: PRESENT: dry, intact, warm. ABSENT: cyanosis, rash Results Laboratory Results: 03/04/19 04:28 03/04/19 04:28 02/21/19 02/21/19 02/21/19 12:18 12:18 18:06 Creatine Kinase < 20 L CK-MB (CK-2) 0.41 Troponin I < 0.012 < 0.012 NT-Pro-B Natriuret Pep 1800 H Impressions: Chest/Abdomen CTA 02/21/19 13:11 IMPRESSION: 1. Negative examination for pulmonary embolism. 2. Small bilateral pleural effusions and associated atelectasis or consolidation. There is extensive bilateral clustered heterogeneous pulmonary opacity most in in the right lung and consolidations of the left upper lobe and right lung base. General constellation of findings is most consistent with multifocal infection. Chest X-Ray 03/04/19 09:15 IMPRESSION: Continued partial clearing of the airspace disease in the right lung Chronic left upper lobe collapse unchanged. No acute left-sided infiltrates Qualifiers - * PATIENT BEING DISCHARGED WITH ANY OF THE FOLLOWING DIAGNOSIS: No Acute Heart Failure - Is this a Heart Failure Patient?: No Plan Discharge Plan: Follow up with primary care provider within 1 week. Follow up with established can striper, Dr. Rincon, within 1 month. Obtain overnight sleep study. Return to the emergency department as needed for concerning symptoms. Time Spent: Greater than 30 Minutes
== END 2019-03-06 20:17 | disposition home health service (06) | DRG 193 ==
LOC: ER 11:26 → EH 15:24 → 3S 19:18
PROVIDERS: ADMIT Internal Medicine; ATTEND Internal Medicine
PROC: 5A09457 Assistance with Respiratory Ventilation, 24-96 Consecutive Hours, Continuous Positive Airway Pressure (ICD-10-PCS; principal; 2019-02-21)
DX: J18.1 Lobar pneumonia, unspecified organism (principal); J96.01 Acute respiratory failure with hypoxia; N30.00 Acute cystitis without hematuria; E87.1 Hypo-osmolality and hyponatremia; I50.9 Heart failure, unspecified; E03.9 Hypothyroidism, unspecified; G89.29 Other chronic pain; E66.9 Obesity, unspecified; Z68.35 Body mass index [BMI] 35.0-35.9, adult; D64.9 Anemia, unspecified; B96.1 Klebsiella pneumoniae [K. pneumoniae] as the cause of diseases classified elsewhere; E16.2 Hypoglycemia, unspecified; I48.2 Chronic atrial fibrillation; J44.9 Chronic obstructive pulmonary disease, unspecified; K21.9 Gastro-esophageal reflux disease without esophagitis; E87.5 Hyperkalemia; I25.10 Atherosclerotic heart disease of native coronary artery without angina pectoris; F32.9 Major depressive disorder, single episode, unspecified; H93.13 Tinnitus, bilateral; E86.0 Dehydration; Z96.653 Presence of artificial knee joint, bilateral; Z79.899 Other long term (current) drug therapy; Z79.01 Long term (current) use of anticoagulants; Z79.891 Long term (current) use of opiate analgesic; Z98.84 Bariatric surgery status; Z87.891 Personal history of nicotine dependence; Z79.1 Long term (current) use of non-steroidal anti-inflammatories (NSAID)
CPT/HCPCS: 36415; 36600; 71045; 71275; 80048; 80053; 80162; 80202; 81001; 82272; 82533; 82550; 82553; 82607; 82728; 82746; 82803; 82962; 83540; 83550; 83605; 83735; 83880; 84100; 84443; 84484; 85025; 85027; 85045; 87040; 87070; 87086; 87088; 87186; 87205; 93005; 93010; 94640; 94660; 94667; 94668; 94762; 94799; 96365; 99291; J0692; J1956; J2543; J3370; J3490; J7030; J7050; J7060; J7512; J7620

== ENCOUNTER 2019-05-15 12:33 | Inpatient (IN) | payer OTHER, MEDICARE ==
[2019-05-15] MEDS ORDERED: DEXTROSE 50%-WATER 25 GM/50 ML DISP.SYRIN IV ONE ×3 (13:08→14:05)
[2019-05-15 13:37] LABS: HEMATOCRIT 36.7 % (37.9-51.0); HEMOGLOBIN 12.4 g/dL (13.5-17.0); MEAN CORPUSCULAR HGB CONC 33.8 g/dL (32.0-36.0); MEAN CORPUSCULAR VOLUME 92 fl (80-97); PLATELET COUNT 191 10^3/uL (150-450); RED BLOOD COUNT 3.99 10^6/uL (4.35-5.55); RED CELL DISTRIBUTION WIDTH 15.2 % (11.5-14.0)
[2019-05-15 13:57] LABS: ABSOLUTE LYMPHOCYTES# (MANUAL) 1.3 10^3/uL (0.5-4.7); ABSOLUTE MONOCYTES # (MANUAL) 0.1 10^3/uL (0.1-1.4); BAND NEUTROPHILS % (MANUAL) 1 % (3-5); BASOPHILS % (MANUAL) 0 % (0-2); EOSINOPHILS % (MANUAL) 0 % (0-6); LYMPHOCYTES % (MANUAL) 17 % (13-45); MONOCYTES % (MANUAL) 2 % (3-13); SEGMENTED NEUTROPHILS % (MAN) 79 % (42-78); TOTAL CELLS COUNTED 100
[2019-05-15 13:58] LABS: ALBUMIN 2.5 g/dL (3.5-5.0); ALKALINE PHOSPHATASE 142 U/L (38-126); ANION GAP 15 (5-19); ASPARTATE AMINO TRANSFERASE 52 U/L (17-59); BILIRUBIN,DIRECT 1.1 mg/dL (0.0-0.4); BILIRUBIN,TOTAL 1.5 mg/dL (0.2-1.3); BLOOD UREA NITROGEN 32 mg/dL (7-20); CALCIUM 8.2 mg/dL (8.4-10.2); CARBON DIOXIDE 16 mmol/L (22-30); CHLORIDE 100 mmol/L (98-107); POTASSIUM 4.2 mmol/L (3.6-5.0); TOTAL PROTEIN 5.4 g/dL (6.3-8.2)
[2019-05-15 13:59] LABS: ANISOCYTOSIS SLIGHT; BURR CELLS SLIGHT; PLATELET COMMENT ADEQUATE; POIKILOCYTOSIS SLIGHT; SMUDGE CELLS PRESENT; TARGET CELLS 2+; TOXIC VACUOLATION PRESENT
[2019-05-15] MEDS ORDERED: CEFTRIAXONE 2 GM/D5W RTU 2 GM/50 ML RTUPB IV ONE (14:03)
[2019-05-15 14:04] LABS: ALCOHOL < 10 mg/dL (NONE DETECTED); GLUCOSE 62 mg/dL (75-110)
[2019-05-15 14:31] LABS: APPEARANCE,URINE SLIGHTLY-CLOUDY; BILIRUBIN,URINE NEGATIVE (NEGATIVE); GLUCOSE, URINE NEGATIVE (NEGATIVE); KETONES,URINE TRACE mg/dL (NEGATIVE); LEUKOCYTE ESTERASE,URINE SMALL (NEGATIVE); NITRITE,URINE NEGATIVE (NEGATIVE); PROTEIN,URINE 30 mg/dL (NEGATIVE); URINE SPECIFIC GRAVITY 1.016
[2019-05-15 14:33] LABS: COLOR,URINE DARK YELLOW
[2019-05-15 14:43] LABS: URINE AMPHETAMINES SCREEN NEGATIVE; URINE BARBITURATES SCREEN NEGATIVE; URINE BENZODIAZEPINES SCREEN NEGATIVE; URINE COCAINE SCREEN NEGATIVE; URINE MARIJUANA (THC) SCREEN NEGATIVE; URINE METHADONE SCREEN NEGATIVE; URINE PHENCYCLIDINE SCREEN NEGATIVE
--- NOTE | 2019-05-15 15:13 | RADIOLOGY REPORT (SQ) ---
EXAM DESCRIPTION: CHEST SINGLE VIEW COMPLETED DATE/TIME: 05/15/2019 2:57 pm REASON FOR STUDY: Weak, poorly responsive, COMPARISON: 03/04/2019 EXAM PARAMETERS: NUMBER OF VIEWS: One view. TECHNIQUE: Single frontal radiographic view of the chest acquired. RADIATION DOSE: NA LIMITATIONS: None. FINDINGS: LUNGS AND PLEURA: Low lung volumes limits examination. A shift of the cardiomediastinal structures to the left of the midline. New finding of increased airspace disease in the left mid and left lower lung zones. Compensatory hypertrophy of the left lung is suggested. Minimal left pleura l effusion may be present. No pneumothorax. MEDIASTINUM AND HILAR STRUCTURES: No masses. Contour normal. HEART AND VASCULAR STRUCTURES: Heart normal in size. Normal vasculature. BONES: The osseous structures are stable in appearance. HARDWARE: None in the chest. OTHER: Hardware anterior fusion mid lower cervical spine. IMPRESSION: 1. Since the previous examination, interval resolution of the right lung airspace disea se. 2. New finding of airspace disease in the left mid-lower lung zones. Shift of the cardiomediastinal structures to the left of the midline and compensatory hypertrophy of the right lung, new findings. Correlation suggested and further evaluation with additional imaging CT chest, may be helpful. TECHNICAL DOCUMENTATION: JOB ID: [id number] [employer]- All Rights Reserved Reading location - IP/workstation name: [email or web address]
--- NOTE | 2019-05-15 15:49 | ER Document Report ---
ED General - General Chief Complaint: Altered Mental Status Stated Complaint: AMS Time Seen by Provider: 05/15/19 14:03 Notes: Patient brought in from home by EMS because he is not eating or drinking and not taking his medications for the past couple of days. said he vomited and the visiting home health nurse heard congestion in his chest that day, as well. He has not complained of anything, but just become very somnolent poorly responsive. Patient is confused and does not answer questions appropriately. Says he lives in [place], but does not know what year it is or where he is at this time. Patient has a history of pneumonia and COPD. He has been admitted here at this hospital previously for pneumonia's. Has required central lines a couple of times in the past. TRAVEL OUTSIDE OF THE [place] IN LAST 30 DAYS: No - Related Data Allergies/Adverse Reactions: No Known Allergies Allergy (Verified 09/21/18 10:36) Past Medical History - Social History Smoking Status: Unknown if Ever Smoked Frequency of alcohol use: None Drug Abuse: None Family History: Reviewed & Not Pertinent Patient has suicidal ideation: No Patient has homicidal ideation: No - Past Medical History Cardiac Medical History: Reports: Hx Atrial Fibrillation, Hx Congestive Heart Failure, Hx Coronary Artery Disease - A-FIB, Hx Hypertension Pulmonary Medical History: Reports: Hx COPD, Hx Pneumonia, Hx Intubation, Hx Respiratory Failure Endocrine Medical History: Reports: Hx Hypothyroidism GI Medical History: Reports: Hx Gastroesophageal Reflux Disease Musculoskeletal Medical History: Reports Hx Arthritis - DDD Psychiatric Medical History: Reports: Hx Depression Past Surgical History: Reports: Hx Cardiac Surgery - CABG, Hx Gastric Bypass Surgery - 1993, Hx Orthopedic Surgery - Herniated Disc Repair, Bilateral Knee Replacement - Immunizations Hx Diphtheria, Pertussis, Tetanus Vaccination: Yes Hx Pneumococcal Vaccination: 07/20/09 Review of Systems - Review of Systems Notes: REVIEW OF SYSTEMS: Obtained from questioning the CONSTITUTIONAL : Denies fever. EENT: Denies eye, ear, nose or mouth or throat pain or other symptoms. CARDIOVASCULAR: Denies chest pain. RESPIRATORY: Slight cough a few days ago. GASTROINTESTINAL: Denies abdominal pain or diarrhea. Has vomited once. GENITOURINARY: Denies difficulty or painful urinating, urinary frequency, blood in urine. MUSCULOSKELETAL: Denies back or neck pain. Denies joint pain or swelling. SKIN: Denies rash or skin lesions. NEUROLOGICAL: See HPI.. ALL OTHER SYSTEMS REVIEWED AND NEGATIVE. -: Yes ROS unobtainable due to patient's medical condition Physical Exam - Vital signs Vitals: BP 89/56 L 05/15/19 12:43 Interpretation: Hypotensive Notes: PHYSICAL EXAMINATION: GENERAL: Sleepy and poorly responsive. Confused and disoriented. Does not know where he has or where he lives or what year it is. Blood pressure 102/51 on EMS run sheet. HEAD: Atraumatic, normocephalic. EYES: Pupils equal round and reactive to light, extraocular movements intact. ENT: oropharynx clear without exudates. Moist mucous membranes. NECK: Normal range of motion, supple. LUNGS: Breath sounds with poor excursions but clear and equal bilaterally. HEART: Irregularly irregular rate and rhythm without murmurs. Rate about 100 at bedside by me. ABDOMEN: Very large abdomen. Vertical scar. Soft, nontender. No guarding or rebound. No masses. BACK: No tenderness throughout entire back. EXTREMITIES: Normal range of motion without pain. NEUROLOGICAL: See HPI. PSYCH: Normal mood, normal affect. SKIN: Warm, dry, no rashes. Several small skin tears present. Course - Re-evaluation Re-evalutation: 05/15/19 16:13 Patient's blood pressure remained in the range of systolic of 80-90, even after 3-1/2 bags of normal saline. Giving him some more IV fluid now. Dr. Morris was here and will return short time to put in a central line. Patient has had 2 g of Rocephin IV. Will be admitted to ICU. - Vital Signs Vital signs: Temp Pulse Resp BP Pulse Ox 99.1 F 97 17 85/64 L 100 05/18/19 12:40 05/18/19 12:00 05/18/19 12:40 05/18/19 12:40 05/18/19 12:40 - Laboratory Result Diagrams: 05/18/19 04:25 05/18/19 04:25 Laboratory results interpreted by me: 05/15/19 05/15/19 05/15/19 13:02 13:20 13:20 RBC 3.99 L Hgb 12.4 L Hct 36.7 L RDW 15.2 H Seg Neuts % (Manual) 79 H Band Neutrophils % 1 L Monocytes % (Manual) 2 L Sodium 131.0 L Carbon Dioxide 16 L BUN 32 H Creatinine 1.80 H Est GFR ( Amer) 45 L Est GFR (MDRD) Non-Af 37 L Glucose 62 L POC Glucose 66 L Calcium 8.2 L Total Bilirubin 1.5 H Direct Bilirubin 1.1 H Alkaline Phosphatase 142 H Total Protein 5.4 L Albumin 2.5 L Urine Protein Urine Ketones Urine Urobilinogen Ur Leukocyte Esterase 05/15/19 05/15/19 05/15/19 14:00 14:03 14:52 RBC Hgb Hct RDW Seg Neuts % (Manual) Band Neutrophils % Monocytes % (Manual) Sodium Carbon Dioxide BUN Creatinine Est GFR ( Amer) Est GFR (MDRD) Non-Af Glucose POC Glucose 60 L 66 L Calcium Total Bilirubin Direct Bilirubin Alkaline Phosphatase Total Protein Albumin Urine Protein 30 H Urine Ketones TRACE H Urine Urobilinogen 4.0 H Ur Leukocyte Esterase SMALL H Critical Care Note - Critical Care Note Total time excluding time spent on procedures (mins): 40 Discharge - Discharge Clinical Impression: Chronic atrial fibrillation, Renal insufficiency, Pneumonia Hypotension Qualifiers: Hypotension type: unspecified hypotension type Sepsis Qualifiers: Sepsis type: sepsis due to unspecified organism Sepsis acute organ dysfunction status: with acute organ dysfunction Severe sepsis acute organ dysfunction type: acute renal failure Acute renal failure type: unspecified Severe sepsis shock status: without septic shock Qualified Code(s): A41.9 - Sepsis, unspecified organism Condition: Serious Disposition: ADMITTED INPATIENT Admitting Provider: Spenser (Hospitalist) Unit Admitted: ICU
[2019-05-15] MEDS ORDERED: MEROPENEM 1 GM in NORMAL SALINE 50 ML IV SCH (16:42)
[2019-05-15] MEDS ORDERED: RINGERS SOLUTION,LACTATED 1,000 ML IV PRN (16:43)
[2019-05-15] MEDS ORDERED: VANCOMYCIN HCL 0 MG in DEXTROSE 5%-WATER 250 ML IV NR (16:45)
--- NOTE | 2019-05-15 17:02 | PDOC H&P ---
History of Present Illness Admission Date/PCP: 05/15/19 16:22 BRAN CERNA PA-C History of Present Illness: AMELIA BOB is a 69 year old male who is already been hospitalized 3 times this calendar year for anywhere from 12 days to 4 weeks at a time, from complications relating to infections, usually pneumonia. His called EMS because he was "not acting right." Apparently he had been having some nausea and vomiting a few days ago for the last couple of days he is been lethargic with decreased p.o. intake. No known fevers, no cough or complaints of shortness of breath. In the ER he was minimally responsive and had a low blood pressure with a systolic in the 80s despite 3.5 L of IV fluids. He had a Valadez catheter placed and got just enough urine out for urinalysis. He had evidence of a pneumonia on his chest x-ray as well as evidence of acute kidney injury. Because of his recurrent pneumonia, hypotension despite aggressive fluid resuscitation, lethargy, and evidence of end-organ dysfunction, he is being admitted to the ICU. Past Medical History Cardiac Medical History: Reports: Atrial Fibrillation, Congestive Heart Failure, Coronary Artery Disease - A-FIB, Hypertension Pulmonary Medical History: Reports: Chronic Obstructive Pulmonary Disease (COPD), Intubation, Pneumonia, Respiratory Failure Endocrine Medical History: Reports: Hypothyroidism GI Medical History: Reports: Gastroesophageal Reflux Disease Musculoskeltal Medical History: Reports: Arthritis - DDD Psychiatric Medical History: Reports: Depression Hematology: Reports: Anemia Denies: Sickle Cell Disease Past Surgical History Past Surgical History: Reports: Gastric Bypass Surgery - 1993, Orthopedic Surgery - Herniated Disc Repair, Bilateral Knee Replacement Social History Smoking Status: Unknown if Ever Smoked Frequency of Alcohol Use: None Hx Recreational Drug Use: No Drugs: None Hx Prescription Drug Abuse: No Family History Family History: Reviewed & Not Pertinent, Other - Unable to obtain Parental Family History Reviewed: No - Unable to obtain Children Family History Reviewed: No - Unable to obtain Sibling(s) Family History Reviewed.: No - Unable to obtain Medication/Allergy Home Medications: Acetaminophen [Tylenol 325 mg Tablet] 650 mg PO Q4HP PRN 02/21/19 Albuterol Sulfate [Ventolin 0.083% Neb 2.5 mg/3 mL Ampul] 2.5 mg NEB RTTIDP PRN 02/21/19 Apixaban [Eliquis 5 mg Tablet] 5 mg PO BID 02/21/19 Bupropion HCl [Wellbutrin Xl 300mg 24hr Tablet] 300 mg PO DAILY 02/21/19 Diltiazem HCl [Cardizem] 120 mg PO DAILY 02/21/19 Fluticasone Propion/Salmeterol [Wixela 250-50 Inhub] 1 puff IH BID 02/21/19 Gabapentin [Neurontin 300 mg Capsule] 300 mg PO QPM 02/21/19 Mv-Mins/Folic/Lycopene/Ginkgo [One Daily For Men 50+ Adv Tab] 1 tab PO DAILY 02/21/19 Ondansetron HCl [Zofran 4 mg Tablet] 4 mg PO Q4HP PRN 02/21/19 Oxycodone HCl [Oxy-Ir 5 mg Tablet] 5 mg PO Q8HP PRN 02/21/19 Pantoprazole Sodium [Protonix [address] Tablet] 40 mg PO QAM 02/21/19 Acetaminophen [Tylenol 325 mg Tablet] 650 mg PO Q4HP PRN tablet 03/06/19 Digoxin [Lanoxin 0.125 mg Tablet] 0.125 mg PO MOTUWETHFR@1000 #20 tablet 03/06/19 Midodrine HCl [Proamatine 5 mg Tablet] 5 mg PO TID #90 tablet 03/06/19 Allergies/Adverse Reactions: No Known Allergies Allergy (Verified 09/21/18 10:36) Review of Systems ROS unobtainable: Due to mental status Physical Exam Vital Signs: Temp Pulse Resp BP Pulse Ox 95 05/15/19 13:51 Intake & Output 05/14/19 05/15/19 05/16/19 06:59 06:59 06:59 Intake Total 50 Balance 50 General appearance: PRESENT: disheveled, morbidly obese, other - Moderate distress, minimally responsive Head exam: PRESENT: atraumatic, normocephalic Eye exam: ABSENT: conjunctival injection, nystagmus, scleral icterus Ear exam: PRESENT: normal external ear exam Mouth exam: PRESENT: dry mucosa, neck supple Teeth exam: PRESENT: poor dentation Neck exam: PRESENT: full ROM. ABSENT: carotid bruit, JVD, lymphadenopathy, meningismus, tenderness, thyromegaly Respiratory exam: PRESENT: rhonchi - Bibasilar, symmetrical, unlabored. ABSENT: accessory muscle use, chest wall tenderness, crackles, prolonged expiratory phas, tachypnea, wheezes Cardiovascular exam: PRESENT: irregular rhythm Pulses: PRESENT: normal carotid pulses Vascular exam: PRESENT: normal capillary refill GI/Abdominal exam: PRESENT: hypoactive bowel sounds, soft. ABSENT: distended, guarding, rebound, tenderness Extremities exam: PRESENT: other - He had some ecchymoses on his hands and wrists bilaterally. ABSENT: clubbing, pedal edema Musculoskeletal exam: PRESENT: normal inspection. ABSENT: deformity Neurological exam: PRESENT: altered - Could not do a satisfactory neurological exam because of his inability to comply Skin exam: PRESENT: dry. ABSENT: warm Results Laboratory Results: 05/15/19 13:20 05/15/19 13:20 05/15/19 05/15/19 05/15/19 13:20 13:20 14:00 WBC 7.0 RBC 3.99 L Hgb 12.4 L Hct 36.7 L MCV 92 MCH 31.0 MCHC 33.8 RDW 15.2 H Plt Count 191 Seg Neutrophils % Not Reportable Sodium 131.0 L Potassium 4.2 Chloride 100 Carbon Dioxide 16 L Anion Gap 15 BUN 32 H Creatinine 1.80 H Est GFR ( Amer) 45 L Glucose 62 L Calcium 8.2 L Magnesium 2.3 Total Bilirubin 1.5 H AST 52 Alkaline Phosphatase 142 H Total Protein 5.4 L Albumin 2.5 L Urine Color DARK YELLOW Urine Appearance SLIGHTLY-CLOUDY Urine pH 5.0 Ur Specific [place] 1.016 Urine Protein 30 H Urine Glucose (UA) NEGATIVE Urine Ketones TRACE H Urine Blood NEGATIVE Urine Nitrite NEGATIVE Ur Leukocyte Esterase SMALL H Urine WBC (Auto) 16 Urine RBC (Auto) 1 Impressions: Chest X-Ray 05/15/19 14:04 IMPRESSION: 1. Since the previous examination, interval resolution of the right lung airspace disease. 2. New finding of airspace disease in the left mid-lower lung zones. Shift of the cardiomediastinal structures to the left of the midline and compensatory hypertrophy of the right lung, new findings. Correlation suggested and further evaluation with additional imaging CT chest, may be helpful. Assessment and Plan - Diagnosis (1) Sepsis Qualifiers: Sepsis type: sepsis due to unspecified organism Sepsis acute organ dysfunction status: with acute organ dysfunction Severe sepsis acute organ dysfunction type: acute renal failure Acute renal failure type: unspecified Severe sepsis shock status: without septic shock Qualified Code(s): A41.9 - Sepsis, unspecified organism; R65.20 - Severe sepsis without septic shock; N17.9 - Acute kidney failure, unspecified Is this a current diagnosis for this admission?: Yes Plan: Due to his pneumonia. He is gotten aggressive fluid bolus and will continue with IV fluids. We will start broad-spectrum antibiotics. Blood cultures are pending. We will attempt to get a sputum culture if we can. (2) Pneumonia Qualifiers: Pneumonia type: aspiration pneumonia Aspiration pneumonia type: due to vomit Laterality: left Lung location: lower lobe of lung Qualified Code(s): J69.0 - Pneumonitis due to inhalation of food and vomit Is this a current diagnosis for this admission?: Yes Plan: Showed on the chest x-ray on the left side, but he had rhonchi bilaterally. He has a history of stricture which may be as a result of the gastric banding procedure, as I saw something to this effect on a prior H&P. This may be why he has had recurrent issues with pneumonia. However, this time his told EMS that he had been vomiting which she thought was due to a "stomach bug." Because he is been in the hospital so much in the past year, and put him on broad- spectrum antibiotics but I do suspect that this is from aspiration. (3) Chronic a-fib Is this a current diagnosis for this admission?: Yes Plan: Currently rate controlled. He is also chronically anticoagulated. We will continue his anticoagulation. We will continue his digoxin, but will hold his Cardizem for now because of his blood pressure. (4) Hypotension Qualifiers: Hypotension type: unspecified hypotension type Is this a current diagnosis for this admission?: Yes Plan: He takes Midrin at home, at least it is on his medication list. I checked his last admission and his blood pressures are typically in the 1 teens and 120s systolic. Some of this could be associated with sepsis and volume depletion from decreased p.o. intake. We had a central line placed and were getting aggressive fluid resuscitation. (5) Acute kidney injury Is this a current diagnosis for this admission?: Yes Plan: Secondary to the above issues. Were watching his electrolytes and his urine output closely. - Time Time Spent with patient: 35 or more minutes - Inpatient Certification Based on my medical assessment, after consideration of the patient's constance rbidities, presenting symptoms, or acuity I expect that the services needed warrant INPATIENT care.: Yes I certify that my determination is in accordance with my understanding of Medicare's requirements for reasonable and necessary INPATIENT services [42 CFR 412.3e].: Yes Medical Necessity: Significant Comorbidiites Make Outpatient Treatment Too Risky, Need Close Monitoring Due to Risk of Patient Decompensation, Need For IV Fluids, Need For Continuous Telemetry Monitoring, Need for IV Antibiotics, Risk of Complication if Not Cared For in Hospital
[2019-05-15] MEDS ORDERED: NOREPINEPHRINE BITARTRATE INJ/PF 4 MG/4 ML SDV IV ONE (17:33)
--- NOTE | 2019-05-15 17:41 | Operative Report ---
Nonrecallable Operative Report DATE OF SURGERY: 05/15/19 PREOPERATIVE DIAGNOSIS: sepsis,pneumonia POSTOPERATIVE DIAGNOSIS: sepsis pneumonia OPERATION: right internal jugular line placement. SURGEON: NICK WEINBERG ANESTHESIA: Local TISSUE REMOVED OR ALTERED: none COMPLICATIONS: none ESTIMATED BLOOD LOSS: 0 INTRAOPERATIVE FINDINGS: see dictation PROCEDURE: Patient was placed in a Trendelenburg position the right neck and chest were prepped and draped in usual sterile fashion. After anesthetizing the skin over the sternocleidomastoid muscle with 1% lidocaine plain a right internal jugular stick was made with a 16-gauge needle. The wire was placed through the needle into the superior vena cava. Then using 11 blade a small tarik was made in the skin at the insertion site of the J-wire and a dilator was placed over the wire this was removed as triple- lumen catheter was placed over the wire using the Seldinger technique. The catheter was fixed to the skin with 2-0 silk suture. A sterile dressing was applied. Chest x-ray is pending. Patient tolerated the procedure well
--- NOTE | 2019-05-15 18:10 | RADIOLOGY REPORT (SQ) ---
EXAM DESCRIPTION: CHEST SINGLE VIEW COMPLETED DATE/TIME: 05/15/2019 5:59 pm REASON FOR STUDY: central line placement COMPARISON: Earlier the same day. NUMBER OF VIEWS: One view. TECHNIQUE: Single frontal radiographic image of the chest acquired. LIMITATIONS: None. FINDINGS: LUNGS AND PLEURA: Grossly unchanged. A right-sided central line has been placed. Cathete r tip overlies the SVC. No pneumothorax. MEDIASTINUM AND HILAR STRUCTURES: Unchanged. HEART AND VASCULAR STRUCTURES: Unchanged. BONES: No acute findings. OTHER: No other significant finding. IMPRESSION: Interval placement of a right-sided central line as described. No pneumothorax. TECHNICAL DOCUMENTATION: JOB ID: [id number] [employer]- All Rights Reserved Reading location - IP/workstation name: [email or web address]
[2019-05-15] MEDS: DEXTROSE 5%-WATER 250 ML with NOREPINEPHRINE BITARTRATE 4 MG IV PRN ×2 (18:30)
[2019-05-15 18:43] LABS: ARTERIAL BLOOD BASE EXCESS -1.9 mmol/L; ARTERIAL BLOOD H2CO3 0.88 mmol/L (1.05-1.35); ARTERIAL BLOOD HCO3 20.8 mmol/L (20-24); ARTERIAL BLOOD O2 SATURATION 95.8 % (94-98); ARTERIAL BLOOD PCO2 29.2 mmHg (35-45); ARTERIAL BLOOD PH 7.47 (7.35-7.45); ARTERIAL BLOOD PO2 73.6 mmHg (80-100); ARTERIAL BLOOD TOTAL CO2 21.7 mmol/L (23-27)
[2019-05-15 18:46] LABS: ARTERIAL BLOOD FIO2 2L
--- NOTE | 2019-05-15 18:58 | EKG REPORT ---
SEVERITY:- ABNORMAL ECG - ATRIAL FIBRILLATION PROBABLE ANTEROSEPTAL INFARCT, AGE INDETERM BORDERLINE T ABNORMALITIES, INFERIOR LEADS LATERAL LEADS ARE ALSO INVOLVED : Confirmed by: Pablo Fernando MD 15-May-2019 18:56:41
[2019-05-15] MEDS: MEROPENEM 1 GM in NORMAL SALINE 50 ML IV SCH (19:23)
[2019-05-15] MEDS ORDERED: VANCOMYCIN HCL 1,500 MG in DEXTROSE 5%-WATER 250 ML IV SCH (20:00)
[2019-05-15] MEDS: NORMAL SALINE 500 ML IV PRN ×2 (21:00→22:05)
[2019-05-16] MEDS ORDERED: NORMAL SALINE 500 ML IV PRN (01:20)
[2019-05-16] MEDS ORDERED: GLUCAGON,HUMAN RECOMB 1 MG INJ IM PRN (01:30)
[2019-05-16] MEDS ORDERED: DEXTROSE 40% GEL 15 GM TUBE X 2 PO PRN (01:30)
[2019-05-16] MEDS ORDERED: DEXTROSE 50%-WATER SYRINGE 25 GM/50 ML DOSE IV PRN (01:30)
[2019-05-16] MEDS ORDERED: DEXTROSE 40% GEL 15 GM TUBE PO PRN (01:30)
[2019-05-16] MEDS ORDERED: DEXTROSE 50%-WATER SYRINGE 12.5 GM/25 ML DOSE IV PRN (01:30)
[2019-05-16] MEDS: NORMAL SALINE 1000 ML 1,000 ML IV PRN ×3 (01:46→20:27)
[2019-05-16] MEDS ORDERED: NORMAL SALINE INJ/PF 0.9% 10 ML SDV IV PRN (02:15)
[2019-05-16] MEDS: DEXTROSE 5%-WATER 250 ML with NOREPINEPHRINE BITARTRATE 4 MG IV PRN ×4 (03:38→20:27)
[2019-05-16] MEDS: MEROPENEM 1 GM in NORMAL SALINE 50 ML IV SCH (05:36)
[2019-05-16 05:43] LABS: HEMATOCRIT 31.5 % (37.9-51.0); HEMOGLOBIN 10.8 g/dL (13.5-17.0); MEAN CORPUSCULAR HEMOGLOBIN 30.9 pg (27.0-33.4); MEAN CORPUSCULAR HGB CONC 34.3 g/dL (32.0-36.0); MEAN CORPUSCULAR VOLUME 90 fl (80-97); PLATELET COUNT 177 10^3/uL (150-450); WHITE BLOOD COUNT 8.3 10^3/uL (4.0-10.5)
[2019-05-16 06:04] LABS: ALBUMIN 1.8 g/dL (3.5-5.0); ALKALINE PHOSPHATASE 96 U/L (38-126); ANION GAP 7 (5-19); ASPARTATE AMINO TRANSFERASE 32 U/L (17-59); BILIRUBIN,DIRECT 0.7 mg/dL (0.0-0.4); BILIRUBIN,TOTAL 1.2 mg/dL (0.2-1.3); BLOOD UREA NITROGEN 27 mg/dL (7-20); CARBON DIOXIDE 22 mmol/L (22-30); CHLORIDE 105 mmol/L (98-107); GLUCOSE 85 mg/dL (75-110); TOTAL PROTEIN 3.9 g/dL (6.3-8.2)
[2019-05-16 06:13] LABS: CALCIUM 6.5 mg/dL (8.4-10.2)
[2019-05-16] MEDS: POTASSIUM CHLORIDE 20 MEQ/50 ML RTU IV SCH ×2 (08:46→10:26)
[2019-05-16] MEDS: MAGNESIUM SULFATE 1 GM/D5W 100 ML IV SCH ×2 (08:48→10:26)
[2019-05-16] MEDS: VANCOMYCIN HCL 1,250 MG in DEXTROSE 5%-WATER 250 ML IV SCH ×2 (10:28→21:40)
[2019-05-16] MEDS ORDERED: MEROPENEM 1 GM in NORMAL SALINE 50 ML IV SCH (14:00)
[2019-05-16] MEDS: MIDODRINE HCL 5 MG TABLET PO SCH ×2 (14:35→18:09)
[2019-05-16] MEDS: BUPROPION HCL 100 MG TABLET PO SCH ×2 (14:36→21:39)
--- NOTE | 2019-05-16 15:11 | PDOC PROGRESS REPORT ---
Subjective Progress Note for:: 05/16/19 Subjective:: This is a 69-year-old male with a past medical history of atrial fibrillation on Eliquis, CHF, CAD, hypertension, COPD, history of respiratory failure from recurrent pneumonia who was brought in due to confusion and lethargy at home. In the ER, he was noted to have hypotension and was found to have a chest x-ray possible UTI. Patient was started on levo fed in the ER. He was subsequently admitted to ICU for septic shock. No acute event overnight. Upon encounter, patient appears comfortable on nasal cannula. He denies chest pain or shortness of breath. He is oriented to person but appears not to be at his baseline mentation yet. Currently on low-dose le vophed. Reason For Visit: SEPSIS,RECURRENT PNEUMONIA Physical Exam Vital Signs: Temp Pulse Resp BP Pulse Ox 98.1 F 102 H 15 85/63 L 102 H 05/16/19 12:00 05/16/19 14:00 05/16/19 14:00 05/16/19 14:00 05/16/19 14:00 Intake & Output 05/15/19 05/16/19 05/17/19 06:59 06:59 06:59 Intake Total 3106 535 Output Total 665 675 Balance 2441 -140 Weight 226 lb 6.636 oz General appearance: PRESENT: no acute distress, well-developed, well-nourished Head exam: PRESENT: atraumatic, normocephalic Eye exam: PRESENT: conjunctiva pink, EOMI, PERRLA. ABSENT: scleral icterus Ear exam: PRESENT: normal external ear exam Mouth exam: PRESENT: moist, tongue midline Neck exam: ABSENT: carotid bruit, JVD, lymphadenopathy, thyromegaly Respiratory exam: PRESENT: rhonchi. ABSENT: rales, wheezes Cardiovascular exam: PRESENT: irregular rhythm. ABSENT: diastolic murmur, rubs, systolic murmur Pulses: PRESENT: normal dorsalis pedis pul GI/Abdominal exam: PRESENT: normal bowel sounds, soft. ABSENT: distended, guarding, mass, organolmegaly, rebound, tenderness Rectal exam: PRESENT: deferred Extremities exam: PRESENT: full ROM. ABSENT: calf tenderness, clubbing, pedal edema Neurological exam: PRESENT: alert, awake, oriented to person, CN II-XII grossly intact. ABSENT: motor sensory deficit Results Laboratory Results: 05/16/19 05:30 05/16/19 05:30 05/15/19 05/16/19 05/16/19 18:31 05:30 05:30 WBC 8.3 RBC 3.50 L Hgb 10.8 L Hct 31.5 L MCV 90 MCH 30.9 MCHC 34.3 RDW 15.0 H Plt Count 177 Carbonic Acid 0.88 L HCO3/H2CO3 Ratio 23:1 ABG pH 7.47 H ABG pCO2 29.2 L ABG pO2 73.6 L ABG HCO3 20.8 ABG O2 Saturation 95.8 ABG Base Excess -1.9 FiO2 2L Sodium 133.5 L Potassium 3.0 L* D Chloride 105 Carbon Dioxide 22 Anion Gap 7 BUN 27 H Creatinine 1.34 H Est GFR ( Amer) > 60 Glucose 85 Calcium 6.5 L* Magnesium Total Bilirubin 1.2 AST 32 Alkaline Phosphatase 96 Total Protein 3.9 L Albumin 1.8 L 05/16/19 05:30 WBC RBC Hgb Hct MCV MCH MCHC RDW Plt Count Carbonic Acid HCO3/H2CO3 Ratio ABG pH ABG pCO2 ABG pO2 ABG HCO3 ABG O2 Saturation ABG Base Excess FiO2 Sodium Potassium Chloride Carbon Dioxide Anion Gap BUN Creatinine Est GFR ( Amer) Glucose Calcium Magnesium 1.3 L D Total Bilirubin AST Alkaline Phosphatase Total Protein Albumin Impressions: Chest X-Ray 05/15/19 14:04 IMPRESSION: 1. Since the previous examination, interval resolution of the right lung airspace disease. 2. New finding of airspace disease in the left mid-lower lung zones. Shift of the cardiomediastinal structures to the left of the midline and compensatory hypertrophy of the right lung, new findings. Correlation suggested and further evaluation with additional imaging CT chest, may be helpful. Assessment and Plan - Diagnosis (1) Septic shock Is this a current diagnosis for this admission?: Yes Plan: Currently on meropenem and vancomycin. Switch meropenem to cefepime. Sputum culture pending. Urine cultures growing gram-negative rods. Blood cultures in process. Currently on levo fed at minimal dose. Continue to wean off vasopressor. (2) Chronic a-fib Is this a current diagnosis for this admission?: Yes Plan: Resume Eliquis. (3) Pneumonia Is this a current diagnosis for this admission?: Yes Plan: As per #1. (4) UTI (urinary tract infection) Is this a current diagnosis for this admission?: Yes Plan: As per #1. (5) COPD (chronic obstructive pulmonary disease) Qualifiers: COPD type: unspecified COPD Qualified Code(s): J44.9 - Chronic obstructive pulmonary disease, unspecified Is this a current diagnosis for this admission?: Yes Plan: Breathing treatments as needed. (6) Hypokalemia Is this a current diagnosis for this admission?: Yes (7) Hypomagnesemia Is this a current diagnosis for this admission?: Yes - Time Time Spent with patient: 25-34 minutes
[2019-05-16 16:37] LABS: ANION GAP 7 (5-19); BLOOD UREA NITROGEN 26 mg/dL (7-20); CALCIUM 7.2 mg/dL (8.4-10.2); CARBON DIOXIDE 23 mmol/L (22-30); CHLORIDE 102 mmol/L (98-107); GLUCOSE 86 mg/dL (75-110); POTASSIUM 3.7 mmol/L (3.6-5.0)
[2019-05-16] MEDS: APIXABAN 5 MG TABLET PO SCH (21:39)
[2019-05-16] MEDS: CEFEPIME 1 GM/D5W RTU 1 GM/50 ML RTUPB IV SCH (21:40)
[2019-05-17] MEDS ORDERED: DEXTROSE 50%-WATER 25 GM/50 ML DISP.SYRIN IV ONE ×2 (00:15→05:23)
[2019-05-17] MEDS: BUPROPION HCL 100 MG TABLET PO SCH ×3 (05:28→21:50)
[2019-05-17] MEDS: PANTOPRAZOLE SODIUM 40 MG TABLET.DR PO SCH (05:28)
[2019-05-17 05:31] LABS: HEMATOCRIT 29.5 % (37.9-51.0); MEAN CORPUSCULAR HEMOGLOBIN 30.9 pg (27.0-33.4); MEAN CORPUSCULAR HGB CONC 34.1 g/dL (32.0-36.0); MEAN CORPUSCULAR VOLUME 91 fl (80-97); PLATELET COUNT 119 10^3/uL (150-450); RED BLOOD COUNT 3.26 10^6/uL (4.35-5.55); RED CELL DISTRIBUTION WIDTH 14.9 % (11.5-14.0); WHITE BLOOD COUNT 6.2 10^3/uL (4.0-10.5)
[2019-05-17 05:57] LABS: ALBUMIN 1.6 g/dL (3.5-5.0); ALKALINE PHOSPHATASE 93 U/L (38-126); ANION GAP 5 (5-19); ASPARTATE AMINO TRANSFERASE 36 U/L (17-59); BILIRUBIN,DIRECT 0.6 mg/dL (0.0-0.4); BILIRUBIN,TOTAL 1.2 mg/dL (0.2-1.3); BLOOD UREA NITROGEN 23 mg/dL (7-20); CARBON DIOXIDE 22 mmol/L (22-30); CHLORIDE 107 mmol/L (98-107); POTASSIUM 3.1 mmol/L (3.6-5.0); TOTAL PROTEIN 3.6 g/dL (6.3-8.2)
[2019-05-17 05:58] LABS: GLUCOSE 59 mg/dL (75-110)
[2019-05-17] MEDS ORDERED: DEXTROSE 50%-WATER SYRINGE 25 GM/50 ML DOSE IV PRN (06:00)
[2019-05-17] MEDS ORDERED: GLUCAGON,HUMAN RECOMB 1 MG INJ IM PRN (06:00)
[2019-05-17] MEDS ORDERED: DEXTROSE 40% GEL 15 GM TUBE X 2 PO PRN (06:00)
[2019-05-17 06:08] LABS: CALCIUM 6.5 mg/dL (8.4-10.2)
[2019-05-17] MEDS: NORMAL SALINE 1000 ML 1,000 ML IV PRN (06:21)
[2019-05-17] MEDS ORDERED: POTASSI CL 20 MEQ/50 ML RIDER 20 MEQ/50 ML RTUPB IV ONE (06:48)
[2019-05-17] MEDS ORDERED: MAGNESIUM SULFATE/D5W 1 GM/100 ML RTUPB IV ONE (06:49)
[2019-05-17] MEDS ORDERED: POTASSIUM CHLORIDE 20 MEQ/50 ML RTU IV ONE (08:30)
[2019-05-17] MEDS: MAGNESIUM SULFATE 1 GM/D5W 100 ML IV SCH ×2 (08:59→10:39)
[2019-05-17] MEDS: DEXTROSE 5%-NORMAL SALINE 1,000 ML IV PRN ×2 (08:59→23:15)
[2019-05-17] MEDS: CEFEPIME 1 GM/D5W RTU 1 GM/50 ML RTUPB IV SCH (09:00)
[2019-05-17] MEDS: APIXABAN 5 MG TABLET PO SCH ×2 (09:01→21:50)
[2019-05-17] MEDS: MIDODRINE HCL 5 MG TABLET PO SCH ×3 (09:01→18:55)
[2019-05-17] MEDS: DIGOXIN 0.125 MG TABLET PO SCH (10:48)
--- NOTE | 2019-05-17 14:17 | PDOC PROGRESS REPORT ---
Subjective Progress Note for:: 05/17/19 Subjective:: This is a 69-year-old male with a past medical history of atrial fibrillation on Eliquis, CHF, CAD, hypertension, COPD, history of respiratory failure from recurrent pneumonia who was brought in due to confusion and lethargy at home. In the ER, he was noted to have hypotension and was found to have a chest x-ray possible UTI. Patient was started on levo fed in the ER. He was subsequently admitted to ICU for septic shock. 05/16: Upon encounter, patient appears comfortable on nasal cannula. He denies chest pain or shortness of breath. He is oriented to person but appears not to be at his baseline mentation yet. Currently on low-dose levophed. 05/17: No acute event overnight. He continues to improve. He was weaned off levophed earlier this morning. He appears to be back at his baseline mentation this morning and is very conversant, coherent and oriented x3. Reason For Visit: SEPSIS,RECURRENT PNEUMONIA Physical Exam Vital Signs: Temp Pulse Resp BP Pulse Ox 98.4 F 109 H 16 112/93 H 99 05/17/19 12:00 05/17/19 12:00 05/17/19 12:00 05/17/19 12:00 05/17/19 12:00 Intake & Output 05/16/19 05/17/19 05/18/19 06:59 06:59 06:59 Intake Total 3106 2952 247 Output Total 665 1415 255 Balance 2441 1537 -8 Weight 226 lb 6.636 oz 233 lb 11.04 oz General appearance: PRESENT: no acute distress, well-developed, well-nourished Head exam: PRESENT: atraumatic, normocephalic Eye exam: PRESENT: conjunctiva pink, EOMI, PERRLA. ABSENT: scleral icterus Ear exam: PRESENT: normal external ear exam Mouth exam: PRESENT: moist, tongue midline Neck exam: ABSENT: carotid bruit, JVD, lymphadenopathy, thyromegaly Respiratory exam: PRESENT: rhonchi. ABSENT: rales, wheezes Pulses: PRESENT: normal dorsalis pedis pul GI/Abdominal exam: PRESENT: normal bowel sounds, soft. ABSENT: distended, guarding, mass, organolmegaly, rebound, tenderness Rectal exam: PRESENT: deferred Neurological exam: PRESENT: alert, awake, oriented to person, oriented to place, oriented to time, CN II-XII grossly intact. ABSENT: motor sensory deficit Results Laboratory Results: 05/17/19 05:15 05/17/19 05:15 05/16/19 05/17/19 05/17/19 15:17 05:15 05:15 WBC 6.2 RBC 3.26 L Hgb 10.0 L Hct 29.5 L MCV 91 MCH 30.9 MCHC 34.1 RDW 14.9 H Plt Count 119 L Sodium 132.3 L 134.3 L Potassium 3.7 3.1 L Chloride 102 107 Carbon Dioxide 23 22 Anion Gap 7 5 BUN 26 H 23 H Creatinine 1.21 0.97 Est GFR ( Amer) > 60 > 60 Glucose 86 59 L Calcium 7.2 L 6.5 L* Magnesium 1.5 L Total Bilirubin 1.2 AST 36 Alkaline Phosphatase 93 Total Protein 3.6 L Albumin 1.6 L 05/15/19 14:00 Catheterized Urine Urine Culture - Final Escherichia Coli Impressions: Chest X-Ray 05/15/19 14:04 IMPRESSION: 1. Since the previous examination, interval resolution of the right lung airspace disease. 2. New finding of airspace disease in the left mid-lower lung zones. Shift of the cardiomediastinal structures to the left of the midline and compensatory hypertrophy of the right lung, new findings. Correlation suggested and further evaluation with additional imaging CT chest, may be helpful. Assessment and Plan - Diagnosis (1) Septic shock Is this a current diagnosis for this admission?: Yes Plan: 05/16: Currently on meropenem and vancomycin. Switch meropenem to cefepime. Sputum culture pending. Urine cultures growing gram-negative rods. Blood cultures in process. Currently on levo fed at minimal dose. Continue to wean off vasopressor. 05/17: Off levophed. Switch antibiotics to Rocephin. (2) Chronic a-fib Is this a current diagnosis for this admission?: Yes Plan: Continue Eliquis. (3) Pneumonia Is this a current diagnosis for this admission?: Yes Plan: As per #1. (4) UTI (urinary tract infection) Is this a current diagnosis for this admission?: Yes Plan: As per #1. (5) COPD (chronic obstructive pulmonary disease) Qualifiers: COPD type: unspecified COPD Qualified Code(s): J44.9 - Chronic obstructive pulmonary disease, unspecified Is this a current diagnosis for this admission?: Yes Plan: Breathing treatments as needed. (6) Hypokalemia Is this a current diagnosis for this admission?: Yes Plan: Getting replacement. (7) Hypomagnesemia Is this a current diagnosis for this admission?: Yes Plan: Getting replacement. - Time Time Spent with patient: 25-34 minutes
[2019-05-17 15:41] LABS: ANION GAP 7 (5-19); BLOOD UREA NITROGEN 23 mg/dL (7-20); CALCIUM 7.2 mg/dL (8.4-10.2); CARBON DIOXIDE 22 mmol/L (22-30); CHLORIDE 104 mmol/L (98-107); GLUCOSE 112 mg/dL (75-110); PHOSPHORUS 1.9 mg/dL (2.5-4.5); POTASSIUM 3.7 mmol/L (3.6-5.0)
[2019-05-17] MEDS: CEFTRIAXONE 2 GM/D5W RTU 2 GM/50 ML RTUPB IV SCH (17:36)
[2019-05-17] MEDS: GABAPENTIN 300 MG CAPSULE PO SCH (21:50)
[2019-05-17] MEDS: ONDANSETRON HCL INJ/PF 4 MG/2 ML SDV IV PRN (23:17)
[2019-05-18 04:43] LABS: HEMATOCRIT 27.9 % (37.9-51.0); HEMOGLOBIN 9.6 g/dL (13.5-17.0); MEAN CORPUSCULAR HEMOGLOBIN 31.3 pg (27.0-33.4); MEAN CORPUSCULAR HGB CONC 34.3 g/dL (32.0-36.0); MEAN CORPUSCULAR VOLUME 91 fl (80-97); RED BLOOD COUNT 3.06 10^6/uL (4.35-5.55); RED CELL DISTRIBUTION WIDTH 15.1 % (11.5-14.0); WHITE BLOOD COUNT 7.4 10^3/uL (4.0-10.5)
[2019-05-18 04:55] LABS: ALBUMIN 1.6 g/dL (3.5-5.0); ALKALINE PHOSPHATASE 98 U/L (38-126); ANION GAP 5 (5-19); ASPARTATE AMINO TRANSFERASE 38 U/L (17-59); BILIRUBIN,DIRECT 0.7 mg/dL (0.0-0.4); BILIRUBIN,TOTAL 1.2 mg/dL (0.2-1.3); BLOOD UREA NITROGEN 22 mg/dL (7-20); CARBON DIOXIDE 22 mmol/L (22-30); CHLORIDE 108 mmol/L (98-107); GLUCOSE 82 mg/dL (75-110); POTASSIUM 3.4 mmol/L (3.6-5.0); TOTAL PROTEIN 3.7 g/dL (6.3-8.2)
[2019-05-18 05:10] LABS: PLATELET COUNT 99 10^3/uL (150-450)
[2019-05-18] MEDS: BUPROPION HCL 100 MG TABLET PO SCH ×3 (05:50→21:07)
[2019-05-18] MEDS: PANTOPRAZOLE SODIUM 40 MG TABLET.DR PO SCH (05:50)
[2019-05-18] MEDS: ONDANSETRON HCL INJ/PF 4 MG/2 ML SDV IV PRN (05:50)
[2019-05-18] MEDS ORDERED: POTASSIUM CHLORIDE 10 MEQ CAPSULE.ER PO ONE (06:00)
[2019-05-18] MEDS: DIGOXIN 0.125 MG TABLET PO SCH (10:29)
[2019-05-18] MEDS: APIXABAN 5 MG TABLET PO SCH ×2 (10:29→21:07)
[2019-05-18] MEDS: MIDODRINE HCL 5 MG TABLET PO SCH ×3 (10:29→18:16)
[2019-05-18] MEDS: DEXTROSE 5%-NORMAL SALINE 1,000 ML IV PRN ×2 (10:39→21:08)
[2019-05-18] MEDS ORDERED: SODIUM PHOS,M-BASIC-D-BASIC 30 MMOL in NORMAL SALINE 250 ML IV ONE (11:00)
--- NOTE | 2019-05-18 14:03 | ADVANCED CARE ---
- Diagnosis (1) Septic shock Diagnosis Current: Yes (2) Chronic a-fib Diagnosis Current: Yes (3) Pneumonia Diagnosis Current: Yes (4) UTI (urinary tract infection) Diagnosis Current: Yes (5) COPD (chronic obstructive pulmonary disease) Diagnosis Current: Yes (6) Hypokalemia Diagnosis Current: Yes (7) Hypomagnesemia Diagnosis Current: Yes Resuscitation Status: Full Code Discussion: Discussed with patient. He is very well oriented and expresses that he would want to be fully resuscitated and receive chest compressions, defibrillation or mechanical ventilation if the need arises. He is on bedside says the same and patient says that his , Araceli is his surrogate medical decision maker.
--- NOTE | 2019-05-18 14:17 | PDOC PROGRESS REPORT ---
Subjective Progress Note for:: 05/18/19 Subjective:: This is a 69-year-old male with a past medical history of atrial fibrillation on Eliquis, CHF, CAD, hypertension, COPD, history of respiratory failure from recurrent pneumonia who was brought in due to confusion and lethargy at home. In the ER, he was noted to have hypotension and was found to have a chest x-ray possible UTI. Patient was started on levo fed in the ER. He was subsequently admitted to ICU for septic shock. 05/16: Upon encounter, patient appears comfortable on nasal cannula. He denies chest pain or shortness of breath. He is oriented to person but appears not to be at his baseline mentation yet. Currently on low-dose levophed. 05/17: He continues to improve. He was weaned off levophed earlier this morning. He appears to be back at his baseline mentation this morning and is very conversant, coherent and oriented x3. 05/18: No acute event overnight. He has been off levo fed for the past 24 hours. However, this morning his blood pressures started slightly trending down before he got his midodrine. Patient does have history of chronically low blood pressures and has been on midodrine. He appears to be at his baseline. He denies any chest pain, shortness of breath or chills. No fever. Reason For Visit: SEPSIS,RECURRENT PNEUMONIA Physical Exam Vital Signs: Temp Pulse Resp BP Pulse Ox 99.1 F 97 17 85/64 L 100 05/18/19 12:40 05/18/19 12:00 05/18/19 12:40 05/18/19 12:40 05/18/19 12:40 Intake & Output 05/17/19 05/18/19 05/19/19 06:59 06:59 06:59 Intake Total 2952 1447 855 Output Total 1415 645 180 Balance 1537 802 675 Weight 233 lb 11.04 oz 237 lb 10.533 oz General appearance: PRESENT: no acute distress, well-developed, well-nourished Head exam: PRESENT: atraumatic, normocephalic Eye exam: PRESENT: conjunctiva pink, EOMI, PERRLA. ABSENT: scleral icterus Ear exam: PRESENT: normal external ear exam Mouth exam: PRESENT: moist, tongue midline Neck exam: ABSENT: carotid bruit, JVD, lymphadenopathy, thyromegaly Respiratory exam: PRESENT: clear to auscultation almaz. ABSENT: rales, rhonchi, wheezes Cardiovascular exam: PRESENT: RRR. ABSENT: diastolic murmur, rubs, systolic murmur Pulses: PRESENT: normal dorsalis pedis pul GI/Abdominal exam: PRESENT: normal bowel sounds, soft. ABSENT: distended, guarding, mass, organolmegaly, rebound, tenderness Rectal exam: PRESENT: deferred Neurological exam: PRESENT: alert, awake, oriented to person, oriented to place, oriented to time, oriented to situation, CN II-XII grossly intact. ABSENT: motor sensory deficit Results Laboratory Results: 05/18/19 04:25 05/18/19 04:25 05/17/19 05/18/19 05/18/19 15:10 04:25 04:25 WBC 7.4 RBC 3.06 L Hgb 9.6 L Hct 27.9 L MCV 91 MCH 31.3 MCHC 34.3 RDW 15.1 H Plt Count 99 L Sodium 133.1 L 134.5 L Potassium 3.7 3.4 L Chloride 104 108 H Carbon Dioxide 22 22 Anion Gap 7 5 BUN 23 H 22 H Creatinine 0.97 0.87 Est GFR ( Amer) > 60 > 60 Glucose 112 H 82 Calcium 7.2 L 7.0 L* Phosphorus 1.9 L Magnesium 1.9 1.8 Total Bilirubin 1.2 AST 38 Alkaline Phosphatase 98 Total Protein 3.7 L Albumin 1.6 L 05/18/19 04:25 WBC RBC Hgb Hct MCV MCH MCHC RDW Plt Count Sodium Potassium Chloride Carbon Dioxide Anion Gap BUN Creatinine Est GFR ( Amer) Glucose Calcium Phosphorus 1.7 L Magnesium Total Bilirubin AST Alkaline Phosphatase Total Protein Albumin Impressions: Chest X-Ray 05/15/19 14:04 IMPRESSION: 1. Since the previous examination, interval resolution of the right lung airspace disease. 2. New finding of airspace disease in the left mid-lower lung zones. Shift of the cardiomediastinal structures to the left of the midline and compensatory hypertrophy of the right lung, new findings. Correlation suggested and further evaluation with additional imaging CT chest, may be helpful. Assessment and Plan - Diagnosis (1) Septic shock Is this a current diagnosis for this admission?: Yes Plan: 05/16: Currently on meropenem and vancomycin. Switch meropenem to cefepime. Sputum culture pending. Urine cultures growing gram-negative rods. Blood cultures in process. Currently on levo fed at minimal dose. Continue to wean off vasopressor. 05/18: Off levophed since yesterday. Continue Rocephin. (2) Chronic a-fib Is this a current diagnosis for this admission?: Yes Plan: Continue Eliquis. (3) Pneumonia Is this a current diagnosis for this admission?: Yes Plan: As per #1. (4) UTI (urinary tract infection) Is this a current diagnosis for this admission?: Yes Plan: As per #1. (5) COPD (chronic obstructive pulmonary disease) Qualifiers: COPD type: unspecified COPD Qualified Code(s): J44.9 - Chronic obstructive pulmonary disease, unspecified Is this a current diagnosis for this admission?: Yes Plan: Breathing treatments as needed. (6) Hypokalemia Is this a current diagnosis for this admission?: Yes Plan: Getting replacement. (7) Hypomagnesemia Is this a current diagnosis for this admission?: Yes Plan: Repleted. - Time Time Spent with patient: 25-34 minutes
[2019-05-18] MEDS ORDERED: GABAPENTIN 300 MG CAPSULE PO SCH (18:00)
[2019-05-18] MEDS: CEFTRIAXONE 2 GM/D5W RTU 2 GM/50 ML RTUPB IV SCH (18:15)
[2019-05-18] MEDS ORDERED: ALTEPLASE INJ 2 MG VIAL (CATH CLEARANCE) IV PRN (18:47)
[2019-05-18] MEDS: VANCOMYCIN HCL 1,250 MG in DEXTROSE 5%-WATER 250 ML IV SCH (20:01)
[2019-05-18] MEDS: GABAPENTIN 300 MG CAPSULE PO SCH (21:07)
[2019-05-19] MEDS: PANTOPRAZOLE SODIUM 40 MG TABLET.DR PO SCH (05:23)
[2019-05-19] MEDS: BUPROPION HCL 100 MG TABLET PO SCH ×3 (05:23→21:07)
[2019-05-19 06:01] LABS: BLOOD UREA NITROGEN 20 mg/dL (7-20); CALCIUM 7.1 mg/dL (8.4-10.2); GLUCOSE 83 mg/dL (75-110); POTASSIUM 3.7 mmol/L (3.6-5.0)
[2019-05-19 06:06] LABS: CARBON DIOXIDE 23 mmol/L (22-30); CHLORIDE 108 mmol/L (98-107)
[2019-05-19 06:14] LABS: ANION GAP 4 (5-19)
[2019-05-19] MEDS: DEXTROSE 40% GEL 15 GM TUBE PO PRN (08:39)
[2019-05-19] MEDS: APIXABAN 5 MG TABLET PO SCH ×2 (09:29→21:07)
[2019-05-19] MEDS: MIDODRINE HCL 5 MG TABLET PO SCH ×3 (09:29→17:33)
[2019-05-19] MEDS: DIGOXIN 0.125 MG TABLET PO SCH (09:30)
[2019-05-19] MEDS: DEXTROSE 5%-NORMAL SALINE 1,000 ML IV PRN ×2 (10:30→23:50)
[2019-05-19] MEDS: ONDANSETRON HCL INJ/PF 4 MG/2 ML SDV IV PRN (12:33)
[2019-05-19] MEDS: ACETAMINOPHEN 325 MG TABLET PO PRN (12:38)
--- NOTE | 2019-05-19 17:09 | PDOC PROGRESS REPORT ---
Subjective Progress Note for:: 05/19/19 Subjective:: This is a 69-year-old male with a past medical history of atrial fibrillation on Eliquis, CHF, CAD, hypertension, COPD, history of respiratory failure from recurrent pneumonia who was brought in due to confusion and lethargy at home. In the ER, he was noted to have hypotension and was found to have a chest x-ray possible UTI. Patient was started on levo fed in the ER. He was subsequently admitted to ICU for septic shock. 05/16: Upon encounter, patient appears comfortable on nasal cannula. He denies chest pain or shortness of breath. He is oriented to person but appears not to be at his baseline mentation yet. Currently on low-dose levophed. 05/17: He continues to improve. He was weaned off levophed earlier this morning. He appears to be back at his baseline mentation this morning and is very conversant, coherent and oriented x3. 05/18: He has been off levo fed for the past 24 hours. However, this morning his blood pressures started slightly trending down before he got his midodrine. Patient does have history of chronically low blood pressures and has been on midodrine. He appears to be at his baseline. He denies any chest pain, shortness of breath or chills. No fever. 05/19: No acute event overnight. He remains off pressors. Blood pressures have been stable overnight. He denies acute complaint. Will be downgraded to IMCU. Reason For Visit: SEPSIS,RECURRENT PNEUMONIA Physical Exam Vital Signs: Temp Pulse Resp BP Pulse Ox 98.4 F 82 20 91/52 L 99 05/19/19 16:00 05/19/19 16:00 05/19/19 16:00 05/19/19 16:00 05/19/19 16:00 Intake & Output 05/18/19 05/19/19 05/20/19 06:59 06:59 06:59 Intake Total 1447 2908 1000 Output Total 645 630 75 Balance 802 2278 925 Weight 237 lb 10.533 oz 243 lb 2.718 oz General appearance: PRESENT: no acute distress, obese Head exam: PRESENT: atraumatic, normocephalic Eye exam: PRESENT: conjunctiva pink, EOMI, PERRLA. ABSENT: scleral icterus Ear exam: PRESENT: normal external ear exam Mouth exam: PRESENT: moist, tongue midline Neck exam: ABSENT: carotid bruit, JVD, lymphadenopathy, thyromegaly Respiratory exam: PRESENT: clear to auscultation almaz. ABSENT: rales, rhonchi, wheezes Cardiovascular exam: PRESENT: RRR. ABSENT: diastolic murmur, rubs, systolic mur mur Pulses: PRESENT: normal dorsalis pedis pul GI/Abdominal exam: PRESENT: normal bowel sounds, soft. ABSENT: distended, guarding, mass, organolmegaly, rebound, tenderness Rectal exam: PRESENT: deferred Neurological exam: PRESENT: alert, awake, oriented to person, oriented to place, oriented to time, oriented to situation, CN II-XII grossly intact. ABSENT: motor sensory deficit Results Laboratory Results: 05/18/19 04:25 05/19/19 05:27 05/18/19 05/19/19 05/19/19 18:15 05:27 05:27 Sodium 135.1 L Potassium 3.7 Chloride 108 H Carbon Dioxide 23 Anion Gap 4 L BUN 20 Creatinine 0.74 Est GFR ( Amer) > 60 Glucose 83 Calcium 7.1 L Phosphorus 3.2 2.6 Magnesium 1.7 Impressions: Chest X-Ray 05/15/19 14:04 IMPRESSION: 1. Since the previous examination, interval resolution of the right lung airspace disease. 2. New finding of airspace disease in the left mid-lower lung zones. Shift of the cardiomediastinal structures to the left of the midline and compensatory hypertrophy of the right lung, new findings. Correlation suggested and further evaluation with additional imaging CT chest, may be helpful. Assessment and Plan - Diagnosis (1) Septic shock Is this a current diagnosis for this admission?: Yes Plan: 05/16: Currently on meropenem and vancomycin. Switch meropenem to cefepime. Sputum culture pending. Urine cultures growing gram-negative rods. Blood cultures in process. Currently on levo fed at minimal dose. Continue to wean off vasopressor. 05/18: Off levophed since yesterday. Continue Rocephin. 05/19: Resolved. (2) Chronic a-fib Is this a current diagnosis for this admission?: Yes Plan: Continue Eliquis. (3) Pneumonia Is this a current diagnosis for this admission?: Yes Plan: As per #1. (4) UTI (urinary tract infection) Is this a current diagnosis for this admission?: Yes Plan: As per #1. (5) COPD (chronic obstructive pulmonary disease) Qualifiers: COPD type: unspecified COPD Qualified Code(s): J44.9 - Chronic obstructive pulmonary disease, unspecified Is this a current diagnosis for this admission?: Yes Plan: Breathing treatments as needed. (6) Hypokalemia Is this a current diagnosis for this admission?: Yes Plan: Getting replacement. (7) Hypomagnesemia Is this a current diagnosis for this admission?: Yes Plan: Repleted. - Time Time Spent with patient: 15-24 minutes
[2019-05-19] MEDS: CEFTRIAXONE 2 GM/D5W RTU 2 GM/50 ML RTUPB IV SCH (17:33)
[2019-05-19] MEDS: GABAPENTIN 300 MG CAPSULE PO SCH (21:07)
[2019-05-20 04:52] LABS: ANION GAP 5 (5-19); BLOOD UREA NITROGEN 20 mg/dL (7-20); CALCIUM 7.3 mg/dL (8.4-10.2); CARBON DIOXIDE 22 mmol/L (22-30); CHLORIDE 109 mmol/L (98-107); GLUCOSE 77 mg/dL (75-110); POTASSIUM 3.5 mmol/L (3.6-5.0)
[2019-05-20] MEDS: PANTOPRAZOLE SODIUM 40 MG TABLET.DR PO SCH (05:12)
[2019-05-20] MEDS: BUPROPION HCL 100 MG TABLET PO SCH ×3 (05:12→23:04)
[2019-05-20] MEDS ORDERED: POTASSIUM CHLORIDE 10 MEQ CAPSULE.ER PO ONE (08:51)
[2019-05-20] MEDS: MIDODRINE HCL 5 MG TABLET PO SCH ×3 (09:02→17:47)
[2019-05-20] MEDS: POTASSIUM CHLORIDE 10 MEQ CAPSULE.ER PO SCH ×2 (09:02→23:04)
[2019-05-20] MEDS: APIXABAN 5 MG TABLET PO SCH ×2 (09:02→23:04)
[2019-05-20] MEDS: ACETAMINOPHEN 325 MG TABLET PO PRN (09:02)
[2019-05-20] MEDS: DIGOXIN 0.125 MG TABLET PO SCH (09:03)
--- NOTE | 2019-05-20 09:35 | RADIOLOGY REPORT (SQ) ---
EXAM DESCRIPTION: CHEST SINGLE VIEW COMPLETED DATE/TIME: 05/20/2019 9:12 am REASON FOR STUDY: pneumonia COMPARISON: 05/15/2019. EXAM PARAMETERS: NUMBER OF VIEWS: One view. TECHNIQUE: Single frontal radiographic view of the chest acquired. RADIATION DOSE: NA LIMITATIONS: None. FINDINGS: LUNGS AND PLEURA: Faint airspace disease in the lung bases, left greater than right. Poss ible small left pleural effusion. No pneumothorax. MEDIASTINUM AND HILAR STRUCTURES: No masses. Contour normal. HEART AND VASCULAR STRUCTURES: Heart normal in size. Normal vasculature. BONES: No acute findings. Degenerative changes in the shoulders. HARDWARE: Central line. Hardware in the cervical spine. OTHER: Calcifications in the left axilla. No other significant finding. IMPRESSION: NO SIGNIFICANT CHANGE IN APPEARANCE OF THE CHEST. TECHNICAL DOCUMENTATION: JOB ID: [id number] [employer]- All Rights Reserved Reading location - IP/workstation name: [email or web address]
--- NOTE | 2019-05-20 14:46 | PDOC PROGRESS REPORT ---
Subjective Progress Note for:: 05/20/19 Subjective:: This is a 69-year-old male with a past medical history of atrial fibrillation on Eliquis, CHF, CAD, hypertension, COPD, history of respiratory failure from recurrent pneumonia who was brought in due to confusion and lethargy at home. In the ER, he was noted to have hypotension and was found to have a chest x-ray possible UTI. Patient was started on levo fed in the ER. He was subsequently admitted to ICU for septic shock. 05/16: Upon encounter, patient appears comfortable on nasal cannula. He denies chest pain or shortness of breath. He is oriented to person but appears not to be at his baseline mentation yet. Currently on low-dose levophed. 05/17: He continues to improve. He was weaned off levophed earlier this morning. He appears to be back at his baseline mentation this morning and is very conversant, coherent and oriented x3. 05/18: He has been off levo fed for the past 24 hours. However, this morning his blood pressures started slightly trending down before he got his midodrine. Patient does have history of chronically low blood pressures and has been on midodrine. He appears to be at his baseline. He denies any chest pain, shortness of breath or chills. No fever. 05/19: He remains off pressors. Blood pressures have been stable overnight. He denies acute complaint. Will be downgraded to IMCU. 05/20: No acute event overnight. Denies chest pain or shortness of breath. Blood pressures have improved with midodrine. Reason For Visit: SEPSIS,RECURRENT PNEUMONIA Physical Exam Vital Signs: Temp Pulse Resp BP Pulse Ox 99.0 F 100 18 98/50 L 100 05/20/19 09:25 05/20/19 08:00 05/20/19 09:25 05/20/19 09:25 05/20/19 09:24 Intake & Output 05/19/19 05/20/19 05/21/19 06:59 06:59 06:59 Intake Total 2908 2050 Output Total 630 345 60 Balance 2278 1705 -60 Weight 243 lb 2.718 oz 245 lb 9.519 oz General appearance: PRESENT: no acute distress, well-developed, well-nourished Head exam: PRESENT: atraumatic, normocephalic Eye exam: PRESENT: conjunctiva pink, EOMI, PERRLA. ABSENT: scleral icterus Ear exam: PRESENT: normal external ear exam Mouth exam: PRESENT: moist, tongue midline Neck exam: ABSENT: carotid bruit, JVD, lymphadenopathy, thyromegaly Respiratory exam: PRESENT: clear to auscultation almaz. ABSENT: rales, rhonchi, wheezes Cardiovascular exam: PRESENT: RRR. ABSENT: diastolic murmur, rubs, systolic murmur Pulses: PRESENT: normal dorsalis pedis pul GI/Abdominal exam: PRESENT: normal bowel sounds, soft. ABSENT: distended, guarding, mass, organolmegaly, rebound, tenderness Rectal exam: PRESENT: deferred Extremities exam: PRESENT: full ROM. ABSENT: calf tenderness, clubbing, pedal edema Neurological exam: PRESENT: alert, awake, oriented to person, oriented to place, oriented to time, oriented to situation, CN II-XII grossly intact. ABSENT: motor sensory deficit Results Laboratory Results: 05/18/19 04:25 05/20/19 03:34 05/20/19 03:34 Sodium 135.7 L Potassium 3.5 L Chloride 109 H Carbon Dioxide 22 Anion Gap 5 BUN 20 Creatinine 0.67 Est GFR ( Amer) > 60 Glucose 77 Calcium 7.3 L Magnesium 1.7 Impressions: Chest X-Ray 05/20/19 08:17 IMPRESSION: NO SIGNIFICANT CHANGE IN APPEARANCE OF THE CHEST. Assessment and Plan - Diagnosis (1) Septic shock Is this a current diagnosis for this admission?: Yes Plan: 05/16: Currently on meropenem and vancomycin. Switch meropenem to cefepime. Sputum culture pending. Urine cultures growing gram-negative rods. Blood cultures in process. Currently on levo fed at minimal dose. Continue to wean off vasopressor. 05/18: Off levophed since yesterday. Continue Rocephin. 05/19: Resolved. (2) Chronic a-fib Is this a current diagnosis for this admission?: Yes Plan: Continue Eliquis. (3) Pneumonia Is this a current diagnosis for this admission?: Yes Plan: As per #1. (4) UTI (urinary tract infection) Is this a current diagnosis for this admission?: Yes Plan: As per #1. (5) COPD (chronic obstructive pulmonary disease) Qualifiers: COPD type: unspecified COPD Qualified Code(s): J44.9 - Chronic obstructive pulmonary disease, unspecified Is this a current diagnosis for this admission?: Yes Plan: Breathing treatments as needed. (6) Hypokalemia Is this a current diagnosis for this admission?: Yes Plan: Getting replacement. (7) Hypomagnesemia Is this a current diagnosis for this admission?: Yes Plan: Repleted. - Time Time Spent with patient: 15-24 minutes
[2019-05-20] MEDS: CEFTRIAXONE 2 GM/D5W RTU 2 GM/50 ML RTUPB IV SCH (17:47)
[2019-05-20] MEDS: GABAPENTIN 300 MG CAPSULE PO SCH (23:04)
[2019-05-21] MEDS: DEXTROSE 5%-NORMAL SALINE 1,000 ML IV PRN ×2 (04:37→18:43)
[2019-05-21] MEDS: BUPROPION HCL 100 MG TABLET PO SCH ×3 (06:12→21:23)
[2019-05-21] MEDS: PANTOPRAZOLE SODIUM 40 MG TABLET.DR PO SCH (06:12)
[2019-05-21 06:50] LABS: ANION GAP 5 (5-19); BLOOD UREA NITROGEN 19 mg/dL (7-20); CALCIUM 7.3 mg/dL (8.4-10.2); CARBON DIOXIDE 22 mmol/L (22-30); CHLORIDE 110 mmol/L (98-107); GLUCOSE 84 mg/dL (75-110); POTASSIUM 3.7 mmol/L (3.6-5.0)
[2019-05-21] MEDS: MIDODRINE HCL 5 MG TABLET PO SCH ×3 (09:47→17:29)
[2019-05-21] MEDS: KETOROLAC TROMETHAMINE INJ/PF 30 MG/1 ML SDV IV PRN (09:47)
[2019-05-21] MEDS: POTASSIUM CHLORIDE 10 MEQ CAPSULE.ER PO SCH ×2 (09:47→21:23)
[2019-05-21] MEDS: APIXABAN 5 MG TABLET PO SCH ×2 (09:47→21:23)
[2019-05-21] MEDS: DIGOXIN 0.125 MG TABLET PO SCH (09:47)
[2019-05-21] MEDS: LEVOFLOXACIN 750 MG TABLET PO SCH (11:30)
--- NOTE | 2019-05-21 15:42 | PDOC PROGRESS REPORT ---
Subjective Progress Note for:: 05/21/19 Subjective:: This is a 69-year-old male with a past medical history of atrial fibrillation on Eliquis, CHF, CAD, hypertension, COPD, history of respiratory failure from recurrent pneumonia who was brought in due to confusion and lethargy at home. In the ER, he was noted to have hypotension and was found to have a chest x-ray possible UTI. Patient was started on levo fed in the ER. He was subsequently admitted to ICU for septic shock. 05/16: Upon encounter, patient appears comfortable on nasal cannula. He denies chest pain or shortness of breath. He is oriented to person but appears not to be at his baseline mentation yet. Currently on low-dose levophed. 05/17: He continues to improve. He was weaned off levophed earlier this morning. He appears to be back at his baseline mentation this morning and is very conversant, coherent and oriented x3. 05/18: He has been off levo fed for the past 24 hours. However, this morning his blood pressures started slightly trending down before he got his midodrine. Patient does have history of chronically low blood pressures and has been on midodrine. He appears to be at his baseline. He denies any chest pain, shortness of breath or chills. No fever. 05/19: He remains off pressors. Blood pressures have been stable overnight. He denies acute complaint. Will be downgraded to IMCU. 05/20: Denies chest pain or shortness of breath. Blood pressures have improved with midodrine. 05/21: No acute event overnight. He continues to improve although still feeling weak. He has been having loose stools. C. difficile is negative, likely related to IV antibiotics. We will switch IV diuretics to p.o. We will have PT evaluate him. Anticipate discharge in the next 24 to 48 hours. Reason For Visit: SEPSIS,RECURRENT PNEUMONIA Physical Exam Vital Signs: Temp Pulse Resp BP Pulse Ox 97.6 F 57 L 20 84/53 L 98 05/21/19 11:50 05/21/19 11:50 05/21/19 11:50 05/21/19 11:50 05/21/19 11:50 Intake & Output 05/20/19 05/21/19 05/22/19 06:59 06:59 06:59 Intake Total 2049 2019 Output Total 345 210 Balance 1705 1810 Weight 245 lb 9.519 oz 249 lb 5.485 oz General appearance: PRESENT: no acute distress, well-developed, well-nourished Head exam: PRESENT: atraumatic, normocephalic Eye exam: PRESENT: conjunctiva pink, EOMI, PERRLA. ABSENT: scleral icterus Ear exam: PRESENT: normal external ear exam Mouth exam: PRESENT: moist, tongue midline Neck exam: ABSENT: carotid bruit, JVD, lymphadenopathy, thyromegaly Respiratory exam: PRESENT: rhonchi. ABSENT: rales, wheezes Cardiovascular exam: PRESENT: RRR. ABSENT: diastolic murmur, rubs, systolic murmur Pulses: PRESENT: normal dorsalis pedis pul GI/Abdominal exam: PRESENT: normal bowel sounds, soft. ABSENT: distended, guarding, mass, organolmegaly, rebound, tenderness Rectal exam: PRESENT: deferred Neurological exam: PRESENT: alert, awake, oriented to person, oriented to place, oriented to time, oriented to situation, CN II-XII grossly intact. ABSENT: motor sensory deficit Results Laboratory Results: 05/18/19 04:25 05/21/19 06:25 05/21/19 06:25 Sodium 136.6 L Potassium 3.7 Chloride 110 H Carbon Dioxide 22 Anion Gap 5 BUN 19 Creatinine 0.71 Est GFR ( Amer) > 60 Glucose 84 Calcium 7.3 L Magnesium 1.6 05/15/19 20:05 Blood Blood Culture - Final NO GROWTH IN 5 DAYS 05/15/19 19:43 Blood Blood Culture - Final NO GROWTH IN 5 DAYS Impressions: Chest X-Ray 05/20/19 08:17 IMPRESSION: NO SIGNIFICANT CHANGE IN APPEARANCE OF THE CHEST. Assessment and Plan - Diagnosis (1) Septic shock Is this a current diagnosis for this admission?: Yes Plan: 05/16: Currently on meropenem and vancomycin. Switch meropenem to cefepime. Sputum culture pending. Urine cultures growing gram-negative rods. Blood cultures in process. Currently on levo fed at minimal dose. Continue to wean off vasopressor. 05/18: Off levophed since yesterday. Continue Rocephin. 05/19: Resolved. 05/21: Switch IV antibiotics to PO Levaquin. (2) Chronic a-fib Is this a current diagnosis for this admission?: Yes Plan: Continue Eliquis. (3) Pneumonia Is this a current diagnosis for this admission?: Yes Plan: As per #1. (4) UTI (urinary tract infection) Is this a current diagnosis for this admission?: Yes Plan: As per #1. (5) COPD (chronic obstructive pulmonary disease) Qualifiers: COPD type: unspecified COPD Qualified Code(s): J44.9 - Chronic obstructive pulmonary disease, unspecified Is this a current diagnosis for this admission?: Yes Plan: Breathing treatments as needed. (6) Hypokalemia Is this a current diagnosis for this admission?: Yes Plan: Repleted. (7) Hypomagnesemia Is this a current diagnosis for this admission?: Yes Plan: Repleted.
[2019-05-21] MEDS: GABAPENTIN 300 MG CAPSULE PO SCH (21:23)
[2019-05-21] MEDS: DEXTROSE 40% GEL 15 GM TUBE PO PRN (21:23)
[2019-05-22] MEDS: KETOROLAC TROMETHAMINE INJ/PF 30 MG/1 ML SDV IV PRN ×3 (00:19→19:55)
[2019-05-22] MEDS: BUPROPION HCL 100 MG TABLET PO SCH ×3 (05:16→21:10)
[2019-05-22] MEDS: PANTOPRAZOLE SODIUM 40 MG TABLET.DR PO SCH (05:16)
[2019-05-22 05:55] LABS: BLOOD UREA NITROGEN 22 mg/dL (7-20); CALCIUM 7.4 mg/dL (8.4-10.2); CARBON DIOXIDE 21 mmol/L (22-30); CHLORIDE 111 mmol/L (98-107); GLUCOSE 79 mg/dL (75-110)
[2019-05-22 06:03] LABS: POTASSIUM 4.2 mmol/L (3.6-5.0)
[2019-05-22 06:05] LABS: ANION GAP 4 (5-19)
[2019-05-22] MEDS: POTASSIUM CHLORIDE 10 MEQ CAPSULE.ER PO SCH ×2 (09:28→21:11)
[2019-05-22] MEDS: APIXABAN 5 MG TABLET PO SCH ×2 (09:28→21:10)
[2019-05-22] MEDS: DIGOXIN 0.125 MG TABLET PO SCH (09:29)
[2019-05-22] MEDS: MIDODRINE HCL 5 MG TABLET PO SCH ×3 (09:29→18:16)
[2019-05-22] MEDS: LEVOFLOXACIN 750 MG TABLET PO SCH (09:29)
--- NOTE | 2019-05-22 10:35 | Progress Note Acknowledgement ---
Progress Note Acknowledgement Progess Note Acknowledgement: I, the undersigned member of the medical staff with appropriate privileges and with supervisory authority over [ PAC ], a dependent practice allied health professional, acknowledge that I have reviewed the progress notes entered on this patient, and in my professional judgment believe that the assessment made and/or any care evidenced was appropriate
[2019-05-22] MEDS: DEXTROSE 5%-NORMAL SALINE 1,000 ML IV PRN (10:44)
--- NOTE | 2019-05-22 10:47 | PDOC PROGRESS REPORT ---
Subjective Progress Note for:: 05/22/19 Subjective:: 05/22/2019 5 days ago due to altered mental status and lethargy and a decreased appetite patient has had 3 admissions this year for pneumonia. Patient on this admission has once again what appears to be pneumonia and hypotension secondary to the pneumonia. Chest x-ray suspicious in the right lung well as the left lung maxwell patient was treated with IV fluids. Continue anticoagulation as well as his digoxin, hold the Cardizem due to hypotension Reason For Visit: SEPSIS,RECURRENT PNEUMONIA Physical Exam Vital Signs: Temp Pulse Resp BP Pulse Ox 97.3 F 80 16 117/75 100 05/22/19 07:37 05/22/19 07:29 05/22/19 07:29 05/22/19 07:29 05/22/19 07:29 Intake & Output 05/21/19 05/22/19 05/23/19 06:59 06:59 06:59 Intake Total 2020 1846 1000 Output Total 210 875 Balance 9655 333 1844 Weight 113.1 kg 112.7 kg General appearance: PRESENT: disheveled, mild distress, other - Patient is slow to answer questions although this may be his baseline Respiratory exam: PRESENT: clear to auscultation almaz. ABSENT: rales, rhonchi, wheezes Cardiovascular exam: PRESENT: RRR. ABSENT: diastolic murmur, rubs, systolic murmur Neurological exam: PRESENT: altered, other - Patient is slow to respond to questions, patient appears somewhat lethargic Psychiatric exam: PRESENT: flat affect Results Laboratory Results: 05/18/19 04:25 05/22/19 05:15 05/22/19 05:15 Sodium 135.8 L Potassium 4.2 Chloride 111 H Carbon Dioxide 21 L Anion Gap 4 L BUN 22 H Creatinine 0.82 Est GFR ( Amer) > 60 Glucose 79 Calcium 7.4 L Magnesium 1.6 Impressions: Chest X-Ray 05/20/19 08:17 IMPRESSION: NO SIGNIFICANT CHANGE IN APPEARANCE OF THE CHEST. Assessment and Plan - Diagnosis (1) Pneumonia Qualifiers: Pneumonia type: aspiration pneumonia Aspiration pneumonia type: due to vomit Laterality: left Lung location: lower lobe of lung Qualified Code(s): J69.0 - Pneumonitis due to inhalation of food and vomit Is this a current diagnosis for this admission?: Yes Plan: Showed on the chest x-ray on the left side, but he had rhonchi bilaterally. He has a history of stricture which may be as a result of the gastric banding procedure, as I saw something to this effect on a prior H&P. This may be why he has had recurrent issues with pneumonia. However, this time his told EMS that he had been vomiting which she thought was due to a "stomach bug." Because he is been in the hospital so much in the past year, and put him on broad- spectrum antibiotics but I do suspect that this is from aspiration. 05/22/2019 chest x-ray done 2 days ago shows faint airspace disease in the lung bases left greater than right possible small left pleural effusion, no significant change. Chest x-ray on admission showed a new airspace disease in the left mid lower lung field, they also recommended a CT scan of the chest. In light of patient's recent admissions for pneumonia we will proceed with CT scan of the chest (2) Renal insufficiency Is this a current diagnosis for this admission?: Yes Plan: 05/22/2019 sodium 135 potassium 4.2 BUN of 22 creatinine 0.82 (3) Sepsis Qualifiers: Sepsis type: sepsis due to unspecified organism Sepsis acute organ dysfunction status: with acute organ dysfunction Severe sepsis acute organ dysfunction type: acute renal failure Acute renal failure type: unspecified Severe sepsis shock status: without septic shock Qualified Code(s): A41.9 - Sepsis, unspecified organism; R65.20 - Severe sepsis without septic shock; N17.9 - Acute kidney failure, unspecified Is this a current diagnosis for this admission?: Yes Plan: Due to his pneumonia. He is gotten aggressive fluid bolus and will continue with IV fluids. We will start broad-spectrum antibiotics. Blood cultures are pending. We will attempt to get a sputum culture if we can. 05/22/2019 patient seems slow to respond today patient's. We will check a lactic acid level as well as a digoxin level. Patient started on p.o. Levaquin 750 mg yesterday recheck today. Patient remains afebrile for the last 48 hours - Time Time Spent with patient: 35 or more minutes
[2019-05-22 11:45] LABS: ABSOLUTE EOSINOPHILS # (AUTO) 0.1 10^3/uL (0.0-0.6); ABSOLUTE LYMPHOCYTES (AUTO) 1.1 10^3/uL (0.5-4.7); ABSOLUTE MONOCYTES (AUTO) 0.2 10^3/uL (0.1-1.4); ABSOLUTE NEUT (AUTO) 5.7 10^3/uL (1.7-8.2); BASOPHILS % (AUTO) 0.7 % (0-2); EOSINOPHILS % (AUTO) 0.8 % (0-6); HEMATOCRIT 21.8 % (37.9-51.0); MEAN CORPUSCULAR HEMOGLOBIN 31.3 pg (27.0-33.4); MEAN CORPUSCULAR HGB CONC 33.5 g/dL (32.0-36.0); MEAN CORPUSCULAR VOLUME 93 fl (80-97); MONOCYTES % (AUTO) 2.8 % (3-13); RED BLOOD COUNT 2.34 10^6/uL (4.35-5.55); SEGMENTED NEUTROPHILS % (AUTO) 80.7 % (42-78); TOTAL CELLS COUNTED % (AUTO) 100 %; WHITE BLOOD COUNT 7.1 10^3/uL (4.0-10.5)
[2019-05-22 11:51] LABS: ALBUMIN 1.5 g/dL (3.5-5.0); ALKALINE PHOSPHATASE 71 U/L (38-126); ASPARTATE AMINO TRANSFERASE 27 U/L (17-59); BILIRUBIN,DIRECT 0.5 mg/dL (0.0-0.4); BILIRUBIN,TOTAL 0.8 mg/dL (0.2-1.3); BLOOD UREA NITROGEN 23 mg/dL (7-20); CALCIUM 7.3 mg/dL (8.4-10.2); DIGOXIN 1.59 ng/mL (0.8-2.0); GLUCOSE 87 mg/dL (75-110); POTASSIUM 4.2 mmol/L (3.6-5.0); TOTAL PROTEIN 3.5 g/dL (6.3-8.2)
[2019-05-22 11:54] LABS: CARBON DIOXIDE 21 mmol/L (22-30); CHLORIDE 111 mmol/L (98-107)
[2019-05-22 11:58] LABS: ANION GAP 4 (5-19)
[2019-05-22 12:12] LABS: PLATELET COUNT 68 10^3/uL (150-450)
[2019-05-22 13:36] LABS: HEMOGLOBIN 7.3 g/dL (13.5-17.0)
--- NOTE | 2019-05-22 15:25 | RADIOLOGY REPORT (SQ) ---
EXAM DESCRIPTION: CT CHEST WITHOUT COMPLETED DATE/TIME: 05/22/2019 2:52 pm REASON FOR STUDY: persistant pneumonia with shift of structures COMPARISON: CT chest 12/13/2018, 12/20/2018, 02/21/2019 TECHNIQUE: CT scan performed of the chest without intravenous contrast. Images reviewed with lung, soft tissue and bone windows. Reconstructed coronal and sagittal MPR images reviewed. All images st ored on PACS. All CT scanners at this facility use dose modulation, iterative reconstruction, and/or weight based d osing when appropriate to reduce radiation dose to as low as reasonably achievable (ALARA). [facility]: Dose Right [facility]: CareDose [facility]: Dose Right [facility]: Teradose 4D [facility]: [employer] RADIATION DOSE: CT Rad equipment meets quality standard of care and radiation dose reduction techniq ues were employed. CTDIvol: 18.6 mGy. DLP: 798 mGy-cm. mGy. LIMITATIONS: No technical limitations. FINDINGS: LUNGS AND PLEURA: Moderate bilateral pleural effusions layer dependently in the chest. Th alisson are larger than on 04/23/[address] There is now airspace disease in the bilateral upper lobes, new compared 04/23/2019, likely resolving p neumonia. There is dependent atelectasis in the right and left lower lobes adjacent to the pleural effusion. No pneumothorax HILAR AND MEDIASTINAL STRUCTURES: No identified masses or abnormal nodes. No obvious aneurysm. HEART AND VASCULAR STRUCTURES: No aneurysm. No pericardial effusion. Very heavily calcified coronar y arteries UPPER ABDOMEN: No significant findings. Limited exam. THYROID AND OTHER SOFT TISSUES: No masses. No adenopathy. BONES: No significant finding. HARDWARE: None in the chest. OTHER: No other significant findings. IMPRESSION: Moderate bilateral pleural effusions Patchy bilateral upper lobe airspace disease likely resolving pneumonia. TECHNICAL DOCUMENTATION: JOB ID: [id number] Quality ID # [id number]: Final reports with documentation of one or more dose reduction techniques (e.g., Au tomated exposure control, adjustment of the mA and/or kV according to patient size, use of iterative reconstruction technique) 2010 [employer]- All Rights Reserved Reading location - IP/workstation name: [email or web address]
[2019-05-22] MEDS ORDERED: NORMAL SALINE 250 ML IV PRN ×2 (16:04)
[2019-05-22] MEDS ORDERED: FUROSEMIDE INJ/PF 20 MG/2 ML SDV IV PRN (16:04)
[2019-05-22] MEDS: GABAPENTIN 300 MG CAPSULE PO SCH (21:10)
[2019-05-22] MEDS: DEXTROSE 50%-WATER SYRINGE 12.5 GM/25 ML DOSE IV PRN (22:32)
[2019-05-23] MEDS: PANTOPRAZOLE SODIUM 40 MG TABLET.DR PO SCH (05:23)
[2019-05-23] MEDS: BUPROPION HCL 100 MG TABLET PO SCH ×3 (05:23→22:50)
[2019-05-23 05:45] LABS: HEMATOCRIT 31.4 % (37.9-51.0); MEAN CORPUSCULAR HEMOGLOBIN 30.8 pg (27.0-33.4); MEAN CORPUSCULAR HGB CONC 33.8 g/dL (32.0-36.0); MEAN CORPUSCULAR VOLUME 91 fl (80-97); RED BLOOD COUNT 3.46 10^6/uL (4.35-5.55); RED CELL DISTRIBUTION WIDTH 15.7 % (11.5-14.0); WHITE BLOOD COUNT 8.5 10^3/uL (4.0-10.5)
[2019-05-23 05:47] LABS: INTERNATIONAL RATION (INR) 2.23; PROTHROMBIN TIME 25.1 SEC (11.4-15.4)
[2019-05-23 05:55] LABS: HEMOGLOBIN 10.6 g/dL (13.5-17.0); PLATELET COUNT 73 10^3/uL (150-450)
[2019-05-23 06:02] LABS: BLOOD UREA NITROGEN 24 mg/dL (7-20); CALCIUM 7.8 mg/dL (8.4-10.2); CARBON DIOXIDE 21 mmol/L (22-30); CHLORIDE 111 mmol/L (98-107); POTASSIUM 4.9 mmol/L (3.6-5.0)
[2019-05-23 06:14] LABS: ANION GAP 4 (5-19)
[2019-05-23 06:17] LABS: GLUCOSE 65 mg/dL (75-110)
[2019-05-23] MEDS: DEXTROSE 50%-WATER SYRINGE 12.5 GM/25 ML DOSE IV PRN ×2 (06:22→08:19)
[2019-05-23 07:12] LABS: ABSOLUTE LYMPHOCYTES# (MANUAL) 0.8 10^3/uL (0.5-4.7); ABSOLUTE MONOCYTES # (MANUAL) 0.3 10^3/uL (0.1-1.4); BASOPHILS % (MANUAL) 1 % (0-2); EOSINOPHILS % (MANUAL) 1 % (0-6); LYMPHOCYTES % (MANUAL) 9 % (13-45); MONOCYTES % (MANUAL) 4 % (3-13); SEGMENTED NEUTROPHILS % (MAN) 85 % (42-78); TOTAL CELLS COUNTED 100
[2019-05-23 07:18] LABS: BURR CELLS 1+; PLATELET COMMENT DECREASED; PLATELET GIANT PRESENT; TEAR DROP CELLS SLIGHT
[2019-05-23] MEDS: MIDODRINE HCL 5 MG TABLET PO SCH ×3 (09:28→17:44)
[2019-05-23] MEDS: APIXABAN 5 MG TABLET PO SCH ×2 (09:28→22:50)
[2019-05-23] MEDS: POTASSIUM CHLORIDE 10 MEQ CAPSULE.ER PO SCH ×2 (09:28→22:51)
[2019-05-23] MEDS: DIGOXIN 0.125 MG TABLET PO SCH (09:28)
[2019-05-23] MEDS: LEVOFLOXACIN 750 MG TABLET PO SCH (09:28)
--- NOTE | 2019-05-23 12:12 | PDOC PROGRESS REPORT ---
Subjective Progress Note for:: 05/23/19 Subjective:: 05/22/2019 5 days ago due to altered mental status and lethargy and a decreased appetite patient has had 3 admissions this year for pneumonia. Patient on this admission has once again what appears to be pneumonia and hypotension secondary to the pneumonia. Chest x-ray suspicious in the right lung well as the left lung maxwell patient was treated with IV fluids. Continue anticoagulation as well as his digoxin, hold the Cardizem due to hypotension 05/23/2019 patient received 2 units of packed cells yesterday and his hemoglobin came from 7.3-10.6 this morning he looked better early but just now got a call that his blood pressure was down to 70 and his sugars were in the 60s and he was once again lethargic When I went to see the patient his was feeding him Cheerios however manual blood pressure was still in the 70s. Graph patient received an order for a bolus of 1 L normal saline and an amp of D50 due to patient's apparent hypovolemic sepsis being transferred back to the ICU Reason For Visit: SEPSIS,RECURRENT PNEUMONIA Physical Exam Vital Signs: Temp Pulse Resp BP Pulse Ox 97.4 F 49 L 16 110/95 H 84 L 05/23/19 07:53 05/23/19 07:53 05/23/19 07:53 05/23/19 07:53 05/23/19 07:53 Intake & Output 05/22/19 05/23/19 05/24/19 06:59 06:59 06:59 Intake Total 1846 2704 Output Total 875 725 Balance 971 1979 Weight 112.7 kg 113.9 kg General appearance: PRESENT: mild distress, other - At the time of transfer patient is hypotensive, and once again appears pale Respiratory exam: PRESENT: clear to auscultation almaz, crackles. ABSENT: rales, rhonchi, wheezes Cardiovascular exam: PRESENT: RRR. ABSENT: diastolic murmur, rubs, systolic murmur Neurological exam: PRESENT: alert, awake, oriented to person, oriented to place, oriented to time, oriented to situation, CN II-XII grossly intact. ABSENT: motor sensory deficit Psychiatric exam: PRESENT: flat affect Results Laboratory Results: 05/23/19 05:30 05/23/19 05:30 05/22/19 05/22/19 05/22/19 11:15 11:15 16:49 WBC 7.1 RBC 2.34 L Hgb 7.3 L Hct 21.8 L MCV 93 MCH 31.3 MCHC 33.5 RDW 15.0 H Plt Count 68 L Seg Neutrophils % 80.7 H Sodium 135.6 L Potassium 4.2 Chloride 111 H Carbon Dioxide 21 L Anion Gap 4 L BUN 23 H Creatinine 0.77 Est GFR ( Amer) > 60 Glucose 87 Calcium 7.3 L Magnesium Total Bilirubin 0.8 AST 27 Alkaline Phosphatase 71 Total Protein 3.5 L Albumin 1.5 L Blood Type A POSITIVE Antibody Screen POSITIVE 05/23/19 05/23/19 05:30 05:30 WBC 8.5 RBC 3.46 L Hgb 10.6 L D Hct 31.4 L MCV 91 MCH 30.8 MCHC 33.8 RDW 15.7 H Plt Count 73 L Seg Neutrophils % Not Reportable Sodium 136.2 L Potassium 4.9 Chloride 111 H Carbon Dioxide 21 L Anion Gap 4 L BUN 24 H Creatinine 0.82 Est GFR ( Amer) > 60 Glucose 65 L Calcium 7.8 L Magnesium 1.6 Total Bilirubin AST Alkaline Phosphatase Total Protein Albumin Blood Type Antibody Screen Impressions: Chest X-Ray 05/20/19 08:17 IMPRESSION: NO SIGNIFICANT CHANGE IN APPEARANCE OF THE CHEST. Chest CT 05/22/19 00:00 IMPRESSION: Moderate bilateral pleural effusions Patchy bilateral upper lobe airspace disease likely resolving pneumonia. Assessment and Plan - Diagnosis (1) Pneumonia Qualifiers: Pneumonia type: aspiration pneumonia Aspiration pneumonia type: due to vomit Laterality: left Lung location: lower lobe of lung Qualified Code(s): J69.0 - Pneumonitis due to inhalation of food and vomit Is this a current diagnosis for this admission?: Yes Plan: Showed on the chest x-ray on the left side, but he had rhonchi bilaterally. He has a history of stricture which may be as a result of the gastric banding procedure, as I saw something to this effect on a prior H&P. This may be why he has had recurrent issues with pneumonia. However, this time his told EMS that he had been vomiting which she thought was due to a "stomach bug." Because he is been in the hospital so much in the past year, and put him on broad- spectrum antibiotics but I do suspect that this is from aspiration. 05/22/2019 chest x-ray done 2 days ago shows faint airspace disease in the lung bases left greater than right possible small left pleural effusion, no significant change. Chest x-ray on admission showed a new airspace disease in the left mid lower lung field, they also recommended a CT scan of the chest. In light of patient's recent admissions for pneumonia we will proceed with CT scan of the chest 05/23/[address] scan showed slightly increased bilateral pleural effusions however the upper lobe airspace disease look like it was resolving and improving, this would be the pneumonia patient remains afebrile, early this morning blood pressure is 110/95, however now it is dropped to 70. Patient is still taking Midodrine,, pressor (2) Renal insufficiency Is this a current diagnosis for this admission?: Yes Plan: 05/22/2019 sodium 135 potassium 4.2 BUN of 22 creatinine 0.82 05/23/2019 electrolytes remained stable. (3) Sepsis Qualifiers: Sepsis type: sepsis due to unspecified organism Sepsis acute organ dy sfunction status: with acute organ dysfunction Severe sepsis acute organ dysfunction type: acute renal failure Acute renal failure type: unspecified Severe sepsis shock status: without septic shock Qualified Code(s): A41.9 - Sepsis, unspecified organism; R65.20 - Severe sepsis without septic shock; N17.9 - Acute kidney failure, unspecified Is this a current diagnosis for this admission?: Yes Plan: Due to his pneumonia. He is gotten aggressive fluid bolus and will continue with IV fluids. We will start broad-spectrum antibiotics. Blood cultures are pending. We will attempt to get a sputum culture if we can. 05/22/2019 patient seems slow to respond today patient's. We will check a lactic acid level as well as a digoxin level. Patient started on p.o. Levaquin 750 mg yesterday recheck today. Patient remains afebrile for the last 48 hours 05/23/2019 lactic acid level 1.6, digoxin 1.59 which is normal, Hemoccult for blood yesterday was negative WBCs still normal 8.5 Patient is on p.o. Levaquin 750 mg, this was started on 05/21/2018. Blood cultures have showed no growth in 5 days initial urine culture grew out E. coli - Time Time Spent with patient: 35 or more minutes - Due to patient's unstable signs as well as level of consciousness he is being transferred back to the ICU. I discussed this with Dr. Gray.
[2019-05-23] MEDS: DEXTROSE 5%-NORMAL SALINE 1,000 ML IV PRN (13:11)
[2019-05-23] MEDS ORDERED: BUPROPION HCL 100 MG TABLET ONE ×2 (22:43→22:44)
[2019-05-23] MEDS: GABAPENTIN 300 MG CAPSULE PO SCH (22:51)
[2019-05-24] MEDS: BUPROPION HCL 100 MG TABLET PO SCH ×3 (05:24→21:21)
[2019-05-24] MEDS: PANTOPRAZOLE SODIUM 40 MG TABLET.DR PO SCH (05:24)
[2019-05-24] MEDS: DEXTROSE 5%-NORMAL SALINE 1,000 ML IV PRN (05:25)
[2019-05-24 06:17] LABS: ANION GAP 5 (5-19); BLOOD UREA NITROGEN 25 mg/dL (7-20); CALCIUM 7.7 mg/dL (8.4-10.2); CARBON DIOXIDE 20 mmol/L (22-30); CHLORIDE 111 mmol/L (98-107); GLUCOSE 70 mg/dL (75-110); POTASSIUM 4.6 mmol/L (3.6-5.0)
[2019-05-24] MEDS ORDERED: FUROSEMIDE INJ/PF 20 MG/2 ML SDV IV ONE (08:35)
[2019-05-24 08:39] LABS: ALBUMIN 1.6 g/dL (3.5-5.0); ALKALINE PHOSPHATASE 72 U/L (38-126); ASPARTATE AMINO TRANSFERASE 28 U/L (17-59); BILIRUBIN,DIRECT 0.6 mg/dL (0.0-0.4); BILIRUBIN,TOTAL 0.8 mg/dL (0.2-1.3); TOTAL PROTEIN 3.9 g/dL (6.3-8.2)
[2019-05-24] MEDS: ALBUMIN HUMAN 12.5 GM/50 ML RTUINJ IV SCH ×2 (08:58→09:11)
--- NOTE | 2019-05-24 09:08 | PDOC PROGRESS REPORT ---
Subjective Progress Note for:: 05/24/19 Subjective:: Patient looks quite poorly. Speaking in very low volume monotone voice. Denies any discomfort or difficulty breathing. Reason For Visit: SEPSIS,RECURRENT PNEUMONIA Physical Exam Vital Signs: Temp Pulse Resp BP Pulse Ox 94.8 F L 102 H 15 91/66 L 100 05/23/19 16:00 05/24/19 08:00 05/24/19 05:28 05/24/19 05:28 05/24/19 05:27 Intake & Output 05/23/19 05/24/19 05/25/19 06:59 06:59 06:59 Intake Total 2704 1052 Output Total 725 790 Balance 1979 262 Weight 113.9 kg 115.8 kg General appearance: PRESENT: no acute distress - Very frail appearing 69-year-old patient who looks older than his stated age. Resting in bed with shallow respirations., cooperative Head exam: PRESENT: atraumatic, normocephalic Eye exam: PRESENT: conjunctiva pale. ABSENT: scleral icterus Ear exam: PRESENT: normal external ear exam. ABSENT: bleeding, drainage Mouth exam: PRESENT: dry mucosa, tongue midline, other - Crusting on the lips. Lips are dry. Stomatitis at the corners of the mouth. Teeth exam: PRESENT: edentulous Respiratory exam: PRESENT: decreased breath sounds - Bilateral bases., rales - Bilaterally, symmetrical, unlabored, other - Coughing with deep inspiration.. ABSENT: tachypnea, wheezes Cardiovascular exam: PRESENT: irregular rhythm GI/Abdominal exam: PRESENT: diminished bowel sounds, soft. ABSENT: distended, tenderness Rectal exam: PRESENT: deferred, other - Fecal collection system in place Gentrourinary exam: PRESENT: indwelling catheter Extremities exam: PRESENT: other - 4+ edema lower legs. 1+ edema upper arms with areas of serous fluid weeping. Musculoskeletal exam: ABSENT: ambulatory Neurological exam: PRESENT: alert, awake, oriented to person, oriented to place, oriented to situation Psychiatric exam: PRESENT: flat affect. ABSENT: agitated, anxious Focused psych exam: ABSENT: delusional, restlessness Skin exam: PRESENT: skin tears - Right arm, other - Glassy translucent skin uppe r extremities. Multiple areas of serous weeping. Shiny fragile skin both legs. Results Laboratory Results: 05/23/19 05:30 05/24/19 05:45 05/24/19 05:45 Sodium 136.2 L Potassium 4.6 Chloride 111 H Carbon Dioxide 20 L Anion Gap 5 BUN 25 H Creatinine 0.78 Est GFR ( Amer) > 60 Glucose 70 L Calcium 7.7 L Magnesium 1.6 Impressions: Chest X-Ray 05/20/19 08:17 IMPRESSION: NO SIGNIFICANT CHANGE IN APPEARANCE OF THE CHEST. Chest CT 05/22/19 00:00 IMPRESSION: Moderate bilateral pleural effusions Patchy bilateral upper lobe airspace disease likely resolving pneumonia. Assessment and Plan - Diagnosis (1) Pneumonia Qualifiers: Pneumonia type: aspiration pneumonia Aspiration pneumonia type: due to vomit Laterality: left Lung location: lower lobe of lung Qualified Code(s): J69.0 - Pneumonitis due to inhalation of food and vomit Is this a current diagnosis for this admission?: Yes Plan: 05/24/2019-the patient has bilateral pleural effusions so it is difficult to assess for rhonchi however there are certainly rales bilaterally. He is unable to take a significantly deep breath. There is a high suspicion of aspiration pneumonia. I am going to DC the levofloxacin and change to Zosyn and vancomycin. (2) Sepsis Qualifiers: Sepsis type: sepsis due to unspecified organism Sepsis acute organ dysfunction status: with acute organ dysfunction Severe sepsis acute organ dysfunction type: acute renal failure Acute renal failure type: unspecified Severe sepsis shock status: without septic shock Qualified Code(s): A41.9 - Sepsis, unspecified organism; R65.20 - Severe sepsis without septic shock; N17.9 - Acute kidney failure, unspecified Is this a current diagnosis for this admission?: Yes Plan: 05/24/2019-the patient has pneumonia by x-ray as well as pleural effusions. There is also E. coli in the urine. I will likely change the antibiotics for the pneumonia. Blood pressure is still quite low. I have increased the midodrine. In an attempt to diuresis we may in fact need to add vasopressors. (3) Renal insufficiency Is this a current diagnosis for this admission?: Yes Plan: 05/24/2019-GFR is back to greater than 60. Creatinine is normal. Continue to monitor with attempts at diuresis. (4) Chronic a-fib Is this a current diagnosis for this admission?: Yes Plan: 05/24/2019-the patient's right is well controlled with digoxin. I am going to stop anticoagulation in anticipation of thoracentesis. Continue current regimen. (5) UTI (urinary tract infection) Is this a current diagnosis for this admission?: Yes Plan: 05/24/2019-E. coli has been isolated from the urine. It is pansensitive. As above I am changing the antibiotics for the pneumonia. The E. coli is susceptible to Zosyn. (6) Anemia Qualifiers: Anemia type: unspecified type Qualified Code(s): D64.9 - Anemia, unspecified Is this a current diagnosis for this admission?: Yes Plan: 05/24/2019-the patient did receive 2 units of packed red blood cells. It is likely anemia of chronic disease as the patient is not showing evidence of jessie blood loss. We will continue to monitor. (7) Generalized edema Is this a current diagnosis for this admission?: Yes Plan: 05/24/2019-mostly a product of congestive failure and severe hypoalbuminemia. Renal function is back to normal. With albumin and I am hopeful that we will be able to begin some diuresis. He may need pressor therapy or possibly dobutamine. (8) Hypoalbuminemia Is this a current diagnosis for this admission?: Yes Plan: 05/24/2019-Albumin is markedly low. This is likely due to the severity of his chronic illness. We will trial IV albumin to help oncotic pressure and enable diuresis. (9) Pleural effusion Is this a current diagnosis for this admission?: Yes Plan: 05/24/2019-bilateral pleural effusions have been worsening since admission. I have ordered another chest x-ray this morning. I have stopped the anticoagulation in consideration for possible thoracentesis. The effusions are more likely cardiogenic rather than parapneumonic. (10) CHF (congestive heart failure) Qualifiers: Heart failure type: unspecified Heart failure chronicity: unspecified Qualified Code(s): I50.9 - Heart failure, unspecified Is this a current diagnosis for this admission?: Yes Plan: 05/24/2019-echocardiogram from November of this year revealed low normal left ventricular function with mildly decreased right ventricular function. Left ventricular hypertrophy with likely diastolic dysfunction. Actual values were not obtainable. The pleural effusions are more likely due to congestive failure versus parapneumonic effusions however he does have a worsening left-sided infiltrate. His serum albumin is extremely low. We are going to give albumin and try and diurese some fluid off. You need to be careful with regard to lower extremity compression for the marked edema as this might just shift fluid to the lungs. Urine output has been quite low. I will give a dose of furosemide after an albumin infusion and look for urine output. If we can institute diuresis it may help with fluid retention. - Time Time Spent with patient: 35 or more minutes Medications reviewed and adjusted accordingly: Yes
[2019-05-24] MEDS ORDERED: VANCOMYCIN HCL 0 MG in DEXTROSE 5%-WATER 250 ML IV NR (09:15)
--- NOTE | 2019-05-24 09:24 | RADIOLOGY REPORT (SQ) ---
EXAM DESCRIPTION: CHEST SINGLE VIEW COMPLETED DATE/TIME: 05/24/2019 9:13 am REASON FOR STUDY: pleural effusions COMPARISON: 05/20/2019 NUMBER OF VIEWS: One view. TECHNIQUE: Single frontal radiographic image of the chest acquired. LIMITATIONS: None. FINDINGS: LUNGS AND PLEURA: Small pleural effusions, left greater than right. Increasing diffuse in terstitial alveolar pattern. MEDIASTINUM AND HEART: Stable heart size and mediastinal structures. SUPPORT DEVICES: Appropriate location without change. BONY STRUCTURES: No acute findings. HARDWARE: None. OTHER: No other significant finding. IMPRESSION: Worsening CHF. Reading location - IP/workstation name: [email or web address]
[2019-05-24] MEDS: MIDODRINE HCL 5 MG TABLET PO SCH ×3 (09:33→18:08)
[2019-05-24] MEDS: POTASSIUM CHLORIDE 10 MEQ CAPSULE.ER PO SCH (09:34)
[2019-05-24] MEDS: DIGOXIN 0.125 MG TABLET PO SCH (09:34)
[2019-05-24] MEDS ORDERED: VANCOMYCIN HCL 1,500 MG in DEXTROSE 5%-WATER 250 ML IV SCH (11:00)
[2019-05-24] MEDS: VANCOMYCIN HCL 1,250 MG in DEXTROSE 5%-WATER 250 ML IV SCH ×2 (11:51→18:09)
[2019-05-24] MEDS: PIPERACILLIN SODIUM/TAZOBACTAM 4.5 GM in NORMAL SALINE 100 ML IV SCH ×3 (14:25→23:48)
[2019-05-24] MEDS ORDERED: ALBUMIN HUMAN 12.5 GM/50 ML RTUINJ IV SCH (19:30)
[2019-05-24] MEDS: ALBUMIN HUMAN 25 GM/100 ML RTUINJ IV SCH (20:28)
[2019-05-24] MEDS: FUROSEMIDE INJ/PF 40 MG/4 ML SDV IV SCH (20:29)
[2019-05-24] MEDS: GABAPENTIN 300 MG CAPSULE PO SCH (21:21)
[2019-05-25] MEDS: VANCOMYCIN HCL 1,250 MG in DEXTROSE 5%-WATER 250 ML IV SCH ×2 (01:58→09:43)
[2019-05-25] MEDS: DEXTROSE 5%-NORMAL SALINE 1,000 ML IV PRN ×2 (01:58→23:29)
[2019-05-25] MEDS: BUPROPION HCL 100 MG TABLET PO SCH ×3 (05:15→21:54)
[2019-05-25] MEDS: PANTOPRAZOLE SODIUM 40 MG TABLET.DR PO SCH (05:16)
[2019-05-25] MEDS: PIPERACILLIN SODIUM/TAZOBACTAM 4.5 GM in NORMAL SALINE 100 ML IV SCH ×3 (05:16→21:30)
[2019-05-25 05:22] LABS: ABSOLUTE MONOCYTES (AUTO) 0.3 10^3/uL (0.1-1.4); ABSOLUTE NEUT (AUTO) 5.1 10^3/uL (1.7-8.2); BASOPHILS % (AUTO) 0.6 % (0-2); EOSINOPHILS % (AUTO) 0.7 % (0-6); HEMATOCRIT 25.6 % (37.9-51.0); LYMPHOCYTES % (AUTO) 15.9 % (13-45); MEAN CORPUSCULAR VOLUME 91 fl (80-97); MONOCYTES % (AUTO) 4.2 % (3-13); RED BLOOD COUNT 2.82 10^6/uL (4.35-5.55); SEGMENTED NEUTROPHILS % (AUTO) 78.6 % (42-78); TOTAL CELLS COUNTED % (AUTO) 100 %
[2019-05-25 05:35] LABS: BLOOD UREA NITROGEN 23 mg/dL (7-20); CALCIUM 7.9 mg/dL (8.4-10.2); CARBON DIOXIDE 22 mmol/L (22-30); CHLORIDE 112 mmol/L (98-107); POTASSIUM 4.3 mmol/L (3.6-5.0)
[2019-05-25 05:41] LABS: GLUCOSE 61 mg/dL (75-110)
[2019-05-25 05:43] LABS: ANION GAP 3 (5-19)
[2019-05-25] MEDS: DEXTROSE 50%-WATER SYRINGE 12.5 GM/25 ML DOSE IV PRN (05:46)
[2019-05-25 05:48] LABS: HEMOGLOBIN 8.6 g/dL (13.5-17.0); MEAN CORPUSCULAR HEMOGLOBIN 30.5 pg (27.0-33.4); MEAN CORPUSCULAR HGB CONC 33.5 g/dL (32.0-36.0); PLATELET COUNT 58 10^3/uL (150-450); RED CELL DISTRIBUTION WIDTH 15.7 % (11.5-14.0); WHITE BLOOD COUNT 6.8 10^3/uL (4.0-10.5)
[2019-05-25] MEDS ORDERED: MAGNESIUM SULFATE/D5W 1 GM/100 ML RTUPB IV ONE (09:00)
[2019-05-25] MEDS: ALBUMIN HUMAN 25 GM/100 ML RTUINJ IV SCH ×2 (09:07→20:46)
[2019-05-25] MEDS: FUROSEMIDE INJ/PF 40 MG/4 ML SDV IV SCH (09:38)
[2019-05-25] MEDS: MIDODRINE HCL 5 MG TABLET PO SCH ×3 (09:43→18:12)
[2019-05-25] MEDS: DIGOXIN 0.125 MG TABLET PO SCH (09:44)
[2019-05-25] MEDS: MAGNESIUM OXIDE 400 MG TABLET PO SCH ×2 (09:44→18:12)
[2019-05-25] MEDS: POTASSIUM CHLORIDE 10 MEQ CAPSULE.ER PO SCH ×2 (09:44→21:55)
[2019-05-25 09:58] LABS: VANCOMYCIN,TROUGH 22.7 ug/mL (5.0-20.0)
[2019-05-25] MEDS: KETOROLAC TROMETHAMINE INJ/PF 30 MG/1 ML SDV IV PRN (18:11)
--- NOTE | 2019-05-25 20:26 | RADIOLOGY REPORT (SQ) ---
EXAM DESCRIPTION: XR CHEST 1 VIEW COMPLETED DATE/TME: 05/25/2019 00:00 CLINICAL HISTORY: 69 years Male NG tube placement COMPARISON: 05/24/2019. FINDINGS: Cardiac enlargement. Nasogastric tube has its tip in the gastric body. There are patchy areas of infiltrate bilaterally predominantly in the lung bases unchanged the previous study. Suspect bilateral effusions. IJ catheter in place on the right. IMPRESSION: Bilateral infiltrates and pleural effusions without significant interval change Placement of a nasogastric tube with the tip in the region of the gastric body.
[2019-05-25] MEDS: FUROSEMIDE INJ/PF 100 MG/10 ML SDV IV SCH (20:47)
[2019-05-25] MEDS ORDERED: FUROSEMIDE INJ/PF 40 MG/4 ML SDV IV SCH (21:00)
[2019-05-25] MEDS: GABAPENTIN 300 MG CAPSULE PO SCH (21:55)
[2019-05-26] MEDS: DEXTROSE 50%-WATER SYRINGE 12.5 GM/25 ML DOSE IV PRN (01:12)
[2019-05-26] MEDS ORDERED: NOREPINEPHRINE BITARTRATE INJ/PF 4 MG/4 ML SDV IV ONE (01:23)
[2019-05-26] MEDS: DEXTROSE 5%-WATER 250 ML with NOREPINEPHRINE BITARTRATE 4 MG IV PRN ×4 (01:31→14:46)
[2019-05-26] MEDS: PIPERACILLIN SODIUM/TAZOBACTAM 4.5 GM in NORMAL SALINE 100 ML IV SCH ×4 (03:01→15:14)
[2019-05-26] MEDS: BUPROPION HCL 100 MG TABLET PO SCH ×2 (05:57→14:29)
[2019-05-26] MEDS ORDERED: PANTOPRAZOLE SODIUM 40 MG VIAL IV SCH (06:00)
[2019-05-26] MEDS ORDERED: VANCOMYCIN HCL 1,250 MG in DEXTROSE 5%-WATER 250 ML IV SCH (06:00)
[2019-05-26 07:22] LABS: ANION GAP 6 (5-19); BLOOD UREA NITROGEN 22 mg/dL (7-20); CALCIUM 8.3 mg/dL (8.4-10.2); CARBON DIOXIDE 21 mmol/L (22-30); CHLORIDE 111 mmol/L (98-107); GLUCOSE 77 mg/dL (75-110); POTASSIUM 4.1 mmol/L (3.6-5.0)
[2019-05-26] MEDS: ALBUMIN HUMAN 25 GM/100 ML RTUINJ IV SCH (07:55)
[2019-05-26] MEDS: FUROSEMIDE INJ/PF 100 MG/10 ML SDV IV SCH (08:54)
[2019-05-26 09:31] LABS: ARTERIAL BLOOD BASE EXCESS -4.8 mmol/L; ARTERIAL BLOOD H2CO3 1.27 mmol/L (1.05-1.35); ARTERIAL BLOOD HCO3 21.1 mmol/L (20-24); ARTERIAL BLOOD O2 SATURATION 95.9 % (94-98); ARTERIAL BLOOD PCO2 42.1 mmHg (35-45); ARTERIAL BLOOD PH 7.32 (7.35-7.45); ARTERIAL BLOOD PO2 87.3 mmHg (80-100); ARTERIAL BLOOD TOTAL CO2 22.4 mmol/L (23-27)
[2019-05-26 09:32] LABS: ARTERIAL BLOOD FIO2 2L
[2019-05-26 09:34] LABS: ABSOLUTE EOSINOPHILS # (AUTO) 0.1 10^3/uL (0.0-0.6); ABSOLUTE LYMPHOCYTES (AUTO) 1.5 10^3/uL (0.5-4.7); ABSOLUTE MONOCYTES (AUTO) 0.4 10^3/uL (0.1-1.4); BASOPHILS % (AUTO) 0.4 % (0-2); EOSINOPHILS % (AUTO) 1.1 % (0-6); HEMATOCRIT 28.2 % (37.9-51.0); HEMOGLOBIN 9.6 g/dL (13.5-17.0); MEAN CORPUSCULAR VOLUME 91 fl (80-97); PLATELET COUNT 100 10^3/uL (150-450); RED CELL DISTRIBUTION WIDTH 15.9 % (11.5-14.0); SEGMENTED NEUTROPHILS % (AUTO) 79.5 % (42-78); TOTAL CELLS COUNTED % (AUTO) 100 %
[2019-05-26] MEDS ORDERED: POTASSIUM CHLORIDE 20 MEQ PACKET NG SCH (10:00)
[2019-05-26] MEDS: MAGNESIUM OXIDE 400 MG TABLET PO SCH (12:14)
[2019-05-26] MEDS: MIDODRINE HCL 5 MG TABLET PO SCH ×2 (12:15→14:29)
[2019-05-26] MEDS: DIGOXIN 0.125 MG TABLET PO SCH (12:16)
[2019-05-26] MEDS ORDERED: KETOROLAC TROMETHAMINE INJ/PF 30 MG/1 ML SDV IV PRN (14:07)
[2019-05-26] MEDS ORDERED: MORPHINE SULFATE 10 MG/ML INJ IV ONE (15:34)
--- NOTE | 2019-05-26 15:48 | PDOC PROGRESS REPORT ---
Subjective Progress Note for:: 05/25/19 Subjective:: The patient looks poorly. He is complaining of buttock pain. Respirations are somewhat shallow. Reason For Visit: SEPSIS,RECURRENT PNEUMONIA Physical Exam Vital Signs: Temp Pulse Resp BP Pulse Ox 98.6 F 66 15 109/50 L 92 05/26/19 14:00 05/26/19 14:00 05/26/19 14:00 05/26/19 14:00 05/26/19 14:00 Intake & Output 05/25/19 05/26/19 05/27/19 06:59 06:59 06:59 Intake Total 2306 1850 1150 Output Total 1100 2620 770 Balance 1206 -770 380 Weight 108.4 kg 109.7 kg General appearance: PRESENT: mild distress, well-developed - Well-developed but very frail appearing 69-year-old patient resting in bed. He does appear to be somewhat uncomfortable. Head exam: PRESENT: atraumatic, normocephalic Eye exam: PRESENT: conjunctiva pale. ABSENT: scleral icterus Ear exam: PRESENT: normal external ear exam. ABSENT: bleeding, drainage Mouth exam: PRESENT: dry mucosa, tongue midline, other - Crusted blood on his li ps Respiratory exam: PRESENT: decreased breath sounds, rales, symmetrical. ABSENT: rhonchi, wheezes Cardiovascular exam: PRESENT: irregular rhythm GI/Abdominal exam: PRESENT: diminished bowel sounds, soft. ABSENT: tenderness Neurological exam: PRESENT: alert, awake, oriented to person, oriented to place, oriented to situation Psychiatric exam: PRESENT: other - Affect reflects his current clinical state.. ABSENT: agitated, anxious Focused psych exam: ABSENT: delusional, restlessness Results Laboratory Results: 05/26/19 09:15 05/26/19 06:50 05/26/19 05/26/19 05/26/19 06:50 09:15 09:15 WBC 10.0 RBC 3.10 L Hgb 9.6 L Hct 28.2 L MCV 91 MCH 31.0 MCHC 34.0 RDW 15.9 H Plt Count 100 L Seg Neutrophils % 79.5 H Carbonic Acid 1.27 HCO3/H2CO3 Ratio 16:1 ABG pH 7.32 L ABG pCO2 42.1 ABG pO2 87.3 ABG HCO3 21.1 ABG O2 Saturation 95.9 ABG Base Excess -4.8 FiO2 2L Sodium 137.5 Potassium 4.1 Chloride 111 H Carbon Dioxide 21 L Anion Gap 6 BUN 22 H Creatinine 0.87 Est GFR ( Amer) > 60 Glucose 77 Calcium 8.3 L Magnesium 1.6 Impressions: Chest CT 05/22/19 00:00 IMPRESSION: Moderate bilateral pleural effusions Patchy bilateral upper lobe airspace disease likely resolving pneumonia. Chest X-Ray 05/25/19 00:00 IMPRESSION: Bilateral infiltrates and pleural effusions without significant interval change Placement of a nasogastric tube with the tip in the region of the gastric body. Assessment and Plan - Diagnosis (1) Pneumonia Qualifiers: Pneumonia type: aspiration pneumonia Aspiration pneumonia type: due to vomit Laterality: left Lung location: lower lobe of lung Qualified C ode(s): J69.0 - Pneumonitis due to inhalation of food and vomit Is this a current diagnosis for this admission?: Yes Plan: 05/24/2019-the patient has bilateral pleural effusions so it is difficult to assess for rhonchi however there are certainly rales bilaterally. He is unable to take a significantly deep breath. There is a high suspicion of aspiration pneumonia. I am going to DC the levofloxacin and change to Zosyn and vanco mycin. 05/25/2019-continue antibiotics. Currently on vancomycin and Zosyn. High likelihood of aspiration pneumonia. He is still having some difficulty breathing. We have been trying to remove fluid as well. (2) Sepsis Qualifiers: Sepsis type: sepsis due to unspecified organism Sepsis acute organ dysfunction status: with acute organ dysfunction Severe sepsis acute organ dysfunction type: acute renal failure Acute renal failure type: unspecified Severe sepsis shock status: without septic shock Qualified Code(s): A41.9 - Sepsis, unspecified organism; R65.20 - Severe sepsis without septic shock; N17.9 - Acute kidney failure, unspecified Is this a current diagnosis for this admission?: Yes Plan: 05/24/2019-the patient has pneumonia by x-ray as well as pleural effusions. There is also E. coli in the urine. I will likely change the antibiotics for the pneumonia. Blood pressure is still quite low. I have increased the midodrine. In an attempt to diuresis we may in fact need to add vasopressors. 05/25/2019-the patient is on higher dose of midodrine. Blood pressures are still marginal. (3) Renal insufficiency Is this a current diagnosis for this admission?: Yes Plan: 05/24/2019-GFR is back to greater than 60. Creatinine is normal. Continue to monitor with attempts at diuresis. 05/25/2019-despite ongoing efforts at diuresis. The patient's GFR remains greater than 60. (4) Chronic a-fib Is this a current diagnosis for this admission?: Yes Plan: 05/24/2019-the patient's right is well controlled with digoxin. I am going to stop anticoagulation in anticipation of thoracentesis. Continue current regimen. 05/25/2019-still with good rate control. Anticoagulation is being held in anticipation of possible thoracentesis. (5) UTI (urinary tract infection) Is this a current diagnosis for this admission?: Yes Plan: 05/24/2019-E. coli has been isolated from the urine. It is pansensitive. As above I am changing the antibiotics for the pneumonia. The E. coli is susceptible to Zosyn. 05/25/2019-continue antibiotics. (6) Anemia Qualifiers: Anemia type: unspecified type Qualified Code(s): D64.9 - Anemia, unspecified Is this a current diagnosis for this admission?: Yes Plan: 05/24/2019-the patient did receive 2 units of packed red blood cells. It is likely anemia of chronic disease as the patient is not showing evidence of jessie blood loss. We will continue to monitor. 05/25/2019-hemoglobin is decreased. There is some dried blood around the lips and his platelets are low. No obvious hemorrhaging. Continue to monitor. (7) Generalized edema Is this a current diagnosis for this admission?: Yes Plan: 05/24/2019-mostly a product of congestive failure and severe hypoalbuminemia. Renal function is back to normal. With albumin and I am hopeful that we will be able to begin some diuresis. He may need pressor therapy or possibly dobutamine. 05/25/2019-the albumin and furosemide appears to be somewhat effective. He is putting out more urine than yesterday. We will continue the dual dosing through tomorrow evening. (8) Hypoalbuminemia Is this a current diagnosis for this admission?: Yes Plan: 05/24/2019-Albumin is markedly low. This is likely due to the severity of his chronic illness. We will trial IV albumin to help oncotic pressure and enable diuresis. 05/25/2019-because of the significant hypoalbuminemia we are giving albumin and furosemide to try and increase oncotic pressure and have a more effective diuresis. It seems to be working. (9) Pleural effusion Is this a current diagnosis for this admission?: Yes Plan: 05/24/2019-bilateral pleural effusions have been worsening since admission. I hav e ordered another chest x-ray this morning. I have stopped the anticoagulation in consideration for possible thoracentesis. The effusions are more likely cardiogenic rather than parapneumonic. 05/25/2019-if the patient exhibits increasing effusion we will likely suggest thoracentesis if he is stable enough. (10) CHF (congestive heart failure) Qualifiers: Heart failure type: unspecified Heart failure chronicity: unspecified Qualified Code(s): I50.9 - Heart failure, unspecified Is this a current diagnosis for this admission?: Yes Plan: 05/24/2019-echocardiogram from November of this year revealed low normal left ventricular function with mildly decreased right ventricular function. Left ventricular hypertrophy with likely diastolic dysfunction. Actual values were not obtainable. The pleural effusions are more likely due to congestive failure versus parapneumonic effusions however he does have a worsening left-sided infiltrate. His serum albumin is extremely low. We are going to give albumin and try and diurese some fluid off. You need to be careful with regard to lower extremity compression for the marked edema as this might just shift fluid to the lungs. Urine output has been quite low. I will give a dose of furosemide after an albumin infusion and look for urine output. If we can institute diuresis it may help with fluid retention. 05/25/2019-as noted above the diuresis is becoming slightly more effective with albumin and furosemide. We do need to monitor his blood pressures. - Time Time Spent with patient: 15-24 minutes Medications reviewed and adjusted accordingly: Yes
--- NOTE | 2019-05-26 15:57 | PDOC PROGRESS REPORT ---
Subjective Progress Note for:: 05/26/19 Subjective:: The patient in fact looks quite poorly today. The family is at the bedside. He is back on Gaurav-Synephrine. Reason For Visit: SEPSIS,RECURRENT PNEUMONIA Physical Exam Vital Signs: Temp Pulse Resp BP Pulse Ox 98.6 F 66 15 109/50 L 92 05/26/19 14:00 05/26/19 14:00 05/26/19 14:00 05/26/19 14:00 05/26/19 14:00 Intake & Output 05/25/19 05/26/19 05/27/19 06:59 06:59 06:59 Intake Total 2306 1850 1150 Output Total 1100 2620 770 Balance 1206 -770 380 Weight 108.4 kg 109.7 kg General appearance: PRESENT: mild distress - Mild to moderate distress., other - Appears to have declined since yesterday. Head exam: PRESENT: atraumatic, normocephalic Eye exam: PRESENT: conjunctiva pale. ABSENT: scleral icterus Ear exam: PRESENT: normal external ear exam. ABSENT: bleeding, drainage Respiratory exam: PRESENT: decreased breath sounds, rales, symmetrical, tachypnea. ABSENT: rhonchi, wheezes Cardiovascular exam: PRESENT: irregular rhythm GI/Abdominal exam: PRESENT: diminished bowel sounds, soft. ABSENT: distended, tenderness Extremities exam: PRESENT: +2 edema - Upper and lower extremities Musculoskeletal exam: ABSENT: ambulatory Neurological exam: PRESENT: alert, awake Psychiatric exam: PRESENT: anxious. ABSENT: agitated Skin exam: PRESENT: pallor, other - Crusted blood on the lips Results Laboratory Results: 05/26/19 09:15 05/26/19 06:50 05/26/19 05/26/19 05/26/19 06:50 09:15 09:15 WBC 10.0 RBC 3.10 L Hgb 9.6 L Hct 28.2 L MCV 91 MCH 31.0 MCHC 34.0 RDW 15.9 H Plt Count 100 L Seg Neutrophils % 79.5 H Carbonic Acid 1.27 HCO3/H2CO3 Ratio 16:1 ABG pH 7.32 L ABG pCO2 42.1 ABG pO2 87.3 ABG HCO3 21.1 ABG O2 Saturation 95.9 ABG Base Excess -4.8 FiO2 2L Sodium 137.5 Potassium 4.1 Chloride 111 H Carbon Dioxide 21 L Anion Gap 6 BUN 22 H Creatinine 0.87 Est GFR ( Amer) > 60 Glucose 77 Calcium 8.3 L Magnesium 1.6 Impressions: Chest CT 05/22/19 00:00 IMPRESSION: Moderate bilateral pleural effusions Patchy bilateral upper lobe airspace disease likely resolving pneumonia. Chest X-Ray 05/25/19 00:00 IMPRESSION: Bilateral infiltrates and pleural effusions without significant interval change Placement of a nasogastric tube with the tip in the region of the gastric body. Assessment and Plan - Diagnosis (1) Pneumonia Qualifiers: Pneumonia type: aspiration pneumonia Aspiration pneumonia type: due to vomit Laterality: left Lung location: lower lobe of lung Qualified Code(s): J69.0 - Pneumonitis due to inhalation of food and vomit Is this a current diagnosis for this admission?: Yes Plan: 05/24/2019-the patient has bilateral pleural effusions so it is difficult to assess for rhonchi however there are certainly rales bilaterally. He is unable to take a significantly deep breath. There is a high suspicion of aspiration pneumonia. I am going to DC the levofloxacin and change to Zosyn and vancomycin. 05/25/2019-continue antibiotics. Currently on vancomycin and Zosyn. High likel ihood of aspiration pneumonia. He is still having some difficulty breathing. We have been trying to remove fluid as well. 05/26/2019-despite the antibiotic therapy the patient does not appear to be cl inically improving. This is likely from multiple factors. See discussion below. (2) Sepsis Qualifiers: Sepsis type: sepsis due to unspecified organism Sepsis acute organ dysfunction status: with acute organ dysfunction Severe sepsis acute organ dysfunction type: acute renal failure Acute renal failure type: unspecified Severe sepsis shock status: without septic shock Qualified Code(s): A41.9 - Sepsis, unspecified organism; R65.20 - Severe sepsis without septic shock; N17.9 - Acute kidney failure, unspecified Is this a current diagnosis for this admission?: Yes Plan: 05/24/2019-the patient has pneumonia by x-ray as well as pleural effusions. There is also E. coli in the urine. I will likely change the antibiotics for the pneumonia. Blood pressure is still quite low. I have increased the midodrine. In an attempt to diuresis we may in fact need to add vasopressors. 05/25/2019-the patient is on higher dose of midodrine. Blood pressures are still marginal. 05/26/2019-the patient is back on Gaurav-Synephrine. His blood pressure remains marginal. See discussion below. (3) Renal insufficiency Is this a current diagnosis for this admission?: Yes Plan: 05/24/2019-GFR is back to greater than 60. Creatinine is normal. Continue to monitor with attempts at diuresis. 05/25/2019-despite ongoing efforts at diuresis. The patient's GFR remains greater than 60. 05/26/2019-GFR remains greater than 60. (4) Chronic a-fib Is this a current diagnosis for this admission?: Yes Plan: 05/24/2019-the patient's right is well controlled with digoxin. I am going to stop anticoagulation in anticipation of thoracentesis. Continue current regimen. 05/25/2019-still with good rate control. Anticoagulation is being held in anticipation of possible thoracentesis. 05/26/2019-rate is well controlled but still irregular. No anticoagulation as his platelets are very low. (5) UTI (urinary tract infection) Is this a current diagnosis for this admission?: Yes Plan: 05/24/2019-E. coli has been isolated from the urine. It is pansensitive. As above I am changing the antibiotics for the pneumonia. The E. coli is susceptible to Zosyn. 05/25/2019-continue antibiotics. 05/26/2019-antibiotics for pneumonia more than adequate to cover urinary tract infection. (6) Anemia Qualifiers: Anemia type: unspecified type Qualified Code(s): D64.9 - Anemia, unspecified Is this a current diagnosis for this admission?: Yes Plan: 05/24/2019-the patient did receive 2 units of packed red blood cells. It is likely anemia of chronic disease as the patient is not showing evidence of jessie blood loss. We will continue to monitor. 05/25/2019-hemoglobin is decreased. There is some dried blood around the lips and his platelets are low. No obvious hemorrhaging. Continue to monitor. 05/26/2019-hemoglobin today slightly better than yesterday. (7) Generalized edema Is this a current diagnosis for this admission?: Yes Plan: 05/24/2019-mostly a product of congestive failure and severe hypoalbuminemia. Renal function is back to normal. With albumin and I am hopeful that we will be able to begin some diuresis. He may need pressor therapy or possibly dobutamine. 05/25/2019-the albumin and furosemide appears to be somewhat effective. He is putting out more urine than yesterday. We will continue the dual dosing through tomorrow evening. 05/26/2019-he is still weeping from his extremities. The skin is still extremely thin with underlying edema. Even though his urine output is increased with the albumin and Lasix he still has significant peripheral edema. (8) Hypoalbuminemia Is this a current diagnosis for this admission?: Yes Plan: 05/24/2019-Albumin is markedly low. This is likely due to the severity of his chronic illness. We will trial IV albumin to help oncotic pressure and enable diuresis. 05/25/2019-because of the significant hypoalbuminemia we are giving albumin and furosemide to try and increase oncotic pressure and have a more effective diuresis. It seems to be working. 05/26/2019-as above (9) Pleural effusion Is this a current diagnosis for this admission?: Yes Plan: 05/24/2019-bilateral pleural effusions have been worsening since admission. I have ordered another chest x-ray this morning. I have stopped the anticoagulation in consideration for possible thoracentesis. The effusions are more likely cardiogenic rather than parapneumonic. 05/25/2019-if the patient exhibits increasing effusion we will likely suggest thoracentesis if he is stable enough. 05/26/2019-as we are going to change the treatment plan will be no consideration for thoracentesis. (10) CHF (congestive heart failure) Qualifiers: Heart failure type: unspecified Heart failure chronicity: unspecified Qualified Code(s): I50.9 - Heart failure, unspecified Is this a current diagnosis for this admission?: Yes Plan: 05/24/2019-echocardiogram from November of this year revealed low normal left ventricular function with mildly decreased right ventricular function. Left ventricular hypertrophy with likely diastolic dysfunction. Actual values were not obtainable. The pleural effusions are more likely due to congestive failure versus parapneumonic effusions however he does have a worsening left-sided infiltrate. His serum albumin is extremely low. We are going to give albumin and try and diurese some fluid off. You need to be careful with regard to lower extremity compression for the marked edema as this might just shift fluid to the lungs. Urine output has been quite low. I will give a dose of furosemide after an albumin infusion and look for urine output. If we can institute diuresis it may help with fluid retention. 05/25/2019-as noted above the diuresis is becoming slightly more effective with a lbumin and furosemide. We do need to monitor his blood pressures. 05/26/2019-there is been no significant improvement with the current treatment plan. After several discussions with the family we changed to DNR. We will now institute comfort care measures. - Time Time Spent with patient: 25-34 minutes Medications reviewed and adjusted accordingly: Yes
--- NOTE | 2019-05-26 16:04 | ADVANCED CARE ---
- Diagnosis (1) Pneumonia Diagnosis Current: Yes (2) Sepsis Diagnosis Current: Yes (3) Renal insufficiency Diagnosis Current: Yes (4) Chronic a-fib Diagnosis Current: Yes (5) UTI (urinary tract infection) Diagnosis Current: Yes (6) Anemia Diagnosis Current: Yes (7) Generalized edema Diagnosis Current: Yes (8) Hypoalbuminemia Diagnosis Current: Yes (9) Pleural effusion Diagnosis Current: Yes (10) CHF (congestive heart failure) Diagnosis Current: Yes Attendance: The patient's and his son were present at the bedside for this discussion. They were to discussions today. See below. Resuscitation Status: Do Not Resuscitate Discussion: This morning the patient was doing poorly. He was requiring higher doses of Gaurav-Synephrine. The patient's was notified and the patient's and son came to the hospital. Once they are at the bedside I discussed the current status of the patient. He has needed more Gaurav-Synephrine, he is still quite edematous, his breathing has not improved significantly and he appears to be declining. We looked at the treatment modalities that he was currently receiving. I discussed the limited other options available. In light of the first part of the discussion they were in agreement for DO NOT RESUSCITATE status. I did tell them to consider comfort measures. The patient was awake and present during the conversation. Later in the day the staff reports that the patient was telling everyone that he wanted to go home. I went to the bedside again. The patient was now getting somewhat agitated. He was complaining about the staff and states that they missed treat him. His tried to reassure him that that is not the case. That the pain he is having is from his illness and overall debility. Once again I reviewed the options and lack of response to the current treatment plan. At that point the patient asked me directly "am I going to ". I told him that yes he was in fact going to . He then said "I want to go home and at home. I explained that I would not be able to orchestrate home hospice until probably Tuesday. I also indicated to the patient's that caring for the patient at home would be extremely difficult. With that the patient's asked the patient directly if he just wanted to be comfortable. At this point he was quite frustrated and dejected as he knew his prognosis was grave. He in fact agreed. I believe his was going to make that decision anyway as the patient is starting to get somewhat confused. I did review the mechanics of the process. We are going to bathe him to clean him and administer morphine for that and then I will move him to comfort care measures only. Dr. Townsend was gracious enough to cosign the order. Care Planning Goals: Comfortable transition as the patient expires. Document(s) Completed: None Time Spent: 50 minutes between the 2 discussions at the bedside.
[2019-05-26] MEDS ORDERED: MORPHINE SULFATE 10 MG/ML INJ IV PRN (16:07)
[2019-05-26] MEDS ORDERED: HALOPERIDOL LACTATE INJ 5 MG/1 ML VIAL IV PRN (16:09)
[2019-05-26] MEDS: MORPHINE SULFATE 10 MG/ML INJ IV PRN ×2 (19:46→21:48)
[2019-05-26 21:35] VITALS: BP 109/60
[2019-05-27] MEDS: MORPHINE SULFATE 10 MG/ML INJ IV PRN ×3 (01:43→09:46)
[2019-05-27] MEDS: LORAZEPAM INJ 2 MG/1 ML VIAL IV PRN ×2 (09:46→11:51)
[2019-05-27] MEDS ORDERED: ATROPINE SULFATE 1% OPH SOLN 5 ML BOTTLE SL PRN (10:58)
--- NOTE | 2019-05-27 12:54 | Death Summary ---
Summary Date : 05/27/19 Time of :: 12:12 Resuscitation Status: Comfort Measures Only - Final Diagnosis (1) Pneumonia Is this a current diagnosis for this admission?: Yes (2) Sepsis Is this a current diagnosis for this admission?: Yes (3) Renal insufficiency Is this a current diagnosis for this admission?: Yes (4) Chronic a-fib Is this a current diagnosis for this admission?: Yes (5) UTI (urinary tract infection) Is this a current diagnosis for this admission?: Yes (6) Anemia Is this a current diagnosis for this admission?: Yes (7) Generalized edema Is this a current diagnosis for this admission?: Yes (8) Hypoalbuminemia Is this a current diagnosis for this admission?: Yes (9) Pleural effusion Is this a current diagnosis for this admission?: Yes (10) CHF (congestive heart failure) Is this a current diagnosis for this admission?: Yes Hospital Course:: The patient had a difficult hospital course. He presented on May 15 with severe sepsis. He required vasopressors and was admitted to the intensive care unit. He did receive a fluid challenge and due to severe hypoalbuminemia retained fluid as well. The patient seem like he was going to improve but then declined. He had to go back on vasopressors. We continued antibiotic therapy. He did develop pleural effusions. He never mounted a large white blood cell count but did have a left shift. His appetite was poor during the entire stay eating mostly 50% or less of meals. The patient developed a significant anemia requiring 2 units of packed red blood cells midway through the hospitalization. This did not help with oncotic pressure or overall condition. I did improve his hemoglobin. His condition continued to slowly decline. He then developed thrombocytopenia and tricuspid blood was noted on his lips most of the time. We did stop his anticoagulation in consideration of possible thoracentesis but his condition was quite poor. Despite aggressive therapy he continued to slowly decline. He was third spacing fluid with spontaneous weeping on all extremities. The skin on his torso was very fragile as well. I would discuss with him daily his poor prognosis. He continued to decline changing CODE STATUS. The day prior to an actual change in decision seemed to indicate that he might be ready to change however he did not. Yesterday however in the presence of his and son he finally agreed to comfort measures only, as did they, when he specifically asked me if he was going to and I told him yes. He asked if he could at home and I told him that we could not arrange it that quickly but we could institute comfort measures and see how he fared through the weekend. The patient did decline further rapidly. This morning he had agonal breathing with hypotension. The family is at the bedside. He did at 12:12 on May 27, 2019.
== END 2019-05-27 13:40 | DRG 871 ==
LOC: ER 12:33 → EH 16:22 → ICU 17:53 → 3W 05-20 10:00 → ICU 05-23 12:56
PROVIDERS: ADMIT Family Medicine; ATTEND Family Medicine
PROC: 02HV33Z Insertion of Infusion Device into Superior Vena Cava, Percutaneous Approach (ICD-10-PCS; 2019-05-15)
PROC: 30233N1 Transfusion of Nonautologous Red Blood Cells into Peripheral Vein, Percutaneous Approach (ICD-10-PCS; principal; 2019-05-22)
DX: A41.9 Sepsis, unspecified organism (principal); J69.0 Pneumonitis due to inhalation of food and vomit; R65.21 Severe sepsis with septic shock; N39.0 Urinary tract infection, site not specified; N17.9 Acute kidney failure, unspecified; I48.2 Chronic atrial fibrillation; E88.09 Other disorders of plasma-protein metabolism, not elsewhere classified; I50.9 Heart failure, unspecified; I25.10 Atherosclerotic heart disease of native coronary artery without angina pectoris; J44.9 Chronic obstructive pulmonary disease, unspecified; E03.9 Hypothyroidism, unspecified; K21.9 Gastro-esophageal reflux disease without esophagitis; F32.9 Major depressive disorder, single episode, unspecified; I11.0 Hypertensive heart disease with heart failure; E66.01 Morbid (severe) obesity due to excess calories; E87.6 Hypokalemia; E83.42 Hypomagnesemia; B96.20 Unspecified Escherichia coli [E. coli] as the cause of diseases classified elsewhere; Z96.653 Presence of artificial knee joint, bilateral; D63.8 Anemia in other chronic diseases classified elsewhere; Z79.899 Other long term (current) drug therapy; Z79.01 Long term (current) use of anticoagulants; Z79.1 Long term (current) use of non-steroidal anti-inflammatories (NSAID); Z95.1 Presence of aortocoronary bypass graft
CPT/HCPCS: 36415; 36430; 71045; 71250; 80048; 80053; 80076; 80162; 80202; 80307; 81001; 82272; 82803; 82962; 83605; 83735; 84100; 85025; 85027; 85610; 86850; 86870; 86900; 86901; 86920; 86922; 87040; 87070; 87086; 87088; 87186; 87493; 93005; 93010; 96365; 96375; 96376; 99291; C1751; J0692; J0696; J1885; J1940; J2060; J2185; J2270; J2405; J2543; J2997; J3370; J3475; J3480; J3490; J7030; J7040; J7042; J7050; J7060; J7120; P9016; P9047; S0164